=== PATIENT | male | born 1945 | race Caucasian/White ===

== ENCOUNTER → 2024-03-19 07:05 | Outpatient (REF) | payer BC, SELFPAY | LOC: RAD 07:05 | PROVIDERS: ATTENDING PHYSICIAN Surgery Vascular Surgery; FAMILY PHYSICIAN Internal Medicine | DX: I73.9 Peripheral vascular disease, unspecified (principal) | CPT/HCPCS: 93922; 93925 ==

== ENCOUNTER 2024-04-28 20:30 | Inpatient (IN) | payer BC, SELFPAY ==
[2024-04-28 17:38] VITALS: BP 160/79
--- NOTE | 2024-04-28 19:18 | ED.SKININJ ---
HPI-Injury
General
Chief Complaint: Skin Problem
Source: patient
Exam Limitations: none
Time Seen by Provider: 04/28/24 19:16
Nursing documentation reviewed up to this point in time: agreed with
History of Present Illness-Injury
Initial Injury comments:
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 Erickson with right heel wound. Not improving after 14 days on Augmentin 875 mg BID. Sent here with note from Dr. Covarrubias for failure of o/p therapy,
necrosis right heel, admit for IV ATBX, MRI, vascular and ID consult. Patient denies fever or chills. He states he feels well otherwise. He does have neuropathy of the foot and has no pain.
Past History
Past History
ED Past Medical History: Hypercholesterolemia, IDDM, Other (Right foot cellulitis, osteomyelitis) and Other (History of subdural hematoma)
ED Past Surgical History: Appendectomy, Orthopedic (Surgery on the foot for removal of calcium deposit. Surgery for I&D of foot; right cuboid bone debridement, right first second and third toe amputations.) and Other (Surgery for ruptured hematoma)
Social History
Tobacco: Non-smoker
Alcohol: Occasional
Personal:
Living: with family
Employment: Employed
Family History
Family History: Other (Noncontributory)
Review of Systems
Review of Systems
Allergies reviewed?: Yes
All Other Systems: ROS reviewed and negative except as documented in HPI and ROS
Constitutional: Denies fever or chills
Respiratory: Denies trouble breathing
Cardiac: Denies chest pain
ABD/GI: Denies abdominal pain or nausea
: Denies dysuria, frequency or difficulty voiding
Musculoskeletal: Denies edema
Skin: Reports other (non healing wound right heel)
Neurological: Reports other (neuropathy feet); Denies dizzy or weakness
Phy Exam
Physical Exam
Physical Exam:
GENERAL: No acute distress. A&Ox3.
CONSTITUTIONAL: Afebrile.
EYES: clear, conjunctivae normal
ENMT: moist mucus membranes, Pharynx nl
RESPIRATORY: Regular respirations, nonlabored, lungs clear.
CARDIOVASCULAR: Regular rate and rhythm, no murmurs, no rubs.
GI: Soft, nontender, normal BS
MUSCULOSKELETAL: Moves with ease. Well perfused. No edema.
SKIN: Warm, dry, pink, Open wound 4 x 6 cm R heel with black eschar center, surrounding erythema, area marked for observation
PSYCH: Normal mood and affect. Well kept, interactive and appropriate
NEUROLOGIC: Awake, alert and oriented. No focal neurological deficits
Course
Orders/Labs/Results
Orders:
Orders
04/28/24 Dinner
2000 calorie (17 carb) Diabetic
At Your Request: Full Participation
Does patient need a safe tray?: No
04/28/24 19:36
CefTRIAXone [Rocephin] 1,000 mg IV NOW STA
04/28/24 19:43
Complete Blood Count/With Diff Urgent
04/28/24 19:49
CMP [Comprehensive Metabolic Panel] Urgent
Wound Culture [Wound/Abscess/Other Culture] Urgent
CHAVA Source: Heel
Specimen Description: Right
Date Specimen was Collected: 04/28/24
Time Specimen was Collected: 19:43
04/28/24 20:15
Admit/Transfer Patient As Directed
Co-Sign Provider:
Level of Care: Inpatient admission
Assign to:: Medical/Surgical
Physician / Group: thom
Diagnosis: right heel ulcer
Reason for Hospitalization: right heel ulcer
Expected length of stay greater than two midnights?: Yes
ELOS- Estimated Length of Stay in days: 2
I certify the patient meets the requirements for IP care: Yes
04/28/24 20:16
Code Status As Directed
Resuscitation Status: Full Code
04/28/24 21:45
Dextrose 50%-Water [Dextrose 50% Syringe] 12.5 grams IV [id number] PRN
Glucagon [GlucaGen] 1 mg IM PRN PRN
Lisinopril [Zestril] 20 mg PO DAILYPRN PRN
dapaglifloz propaned-metformin [Xigduo XR] 1 tablet PO BIDWMEAL
04/28/24 21:45
PODIATRY CONSULT Routine
Consulting Provider: Vania Erickson
Was physician already notified: Yes
Low Ext No Joint, Right With MR [MR Right Le No Joint With] Routine
Comment:
Reason For Exam: heel ulcer
Recent pill cam endoscopy?: No
Activity As Directed
Activity Level: As Tolerated
Bedside Glucose Monitoring As Directed
Frequency: AC&HS
Additional Instructions:: Change to q6h if pt on TPN, tube feeding or not eating
Bedside Glucose Monitoring As Directed
Frequency: AC&HS
Additional Instructions:: Change to q6h if pt on TPN, tube feeding or not eating
Vital Signs As Directed
Frequency: Per unit guidelines
DX Deep Vein Thrombosis Video Routine
04/28/24 22:00
Piperacillin/Tazo 3.375 Gram [Zosyn] 3.375 gram in 50 ml IV Q6H
VANCOMYCIN Pharmacy to Dose [VANCOCIN Pharmacy to Dose] 1 each Pharmacy To Prepare [Call Pharmacy To Prepare] 0 ml IV PER PROTOCOL
04/29/24 06:00
Complete Blood Count/With Diff IN AM
Comprehensive Metabolic Panel IN AM
Glycohemoglobin (HgbA1c) IN AM
04/29/24 07:30
Insulin Aspart Corrective Low [Novolog Flexpen-Low Resistance] See Protocol SC AC
04/29/24 08:00
Heparin 5,000 units SC Q12
Multivitamin [Theragran] 1 tablet PO DAILY
Vit C/Vit E/Lutein/Min/[place]-3 [Ocuvite Softgel] 2 cap PO DAILY
04/29/24 18:00
Rosuvastatin Calcium [Crestor] 20 mg PO QPM
Abnormal Lab Results
04/28/24 04/28/24
19:43 19:49
WBC 16.3 H 10^3/uL
(4.8-10.8)
Abs Immat Gran (auto) 0.1 H 10^3/uL
(0-0.05)
Absolute Neuts (auto) 13.6 H 10^3/uL
(1.4-6.5)
Absolute Lymphs (auto) 1.0 L 10^3/uL
(1.2-3.4)
Absolute Monos (auto) 1.4 H 10^3/uL
(0.1-0.6)
Immature Gran % 0.8 H %
(0-0.5)
Neutrophils % 83.9 H %
(42.2-75.2)
Lymphocytes % 6.2 L %
(20.5-51.1)
BUN 37 H mg/dl
(9-20)
Glucose 159 H mg/dl
(70-99)
Alkaline Phosphatase 150 H U/L
(38-126)
04/28/24 19:43
04/28/24 19:49
Vital Signs
Initial and Last Documented VS:
Initial Vital Signs
Temp Pulse Resp BP Pulse Ox
98.0 F 92 18 160/79 98
04/28/24 17:38 04/28/24 17:38 04/28/24 17:38 04/28/24 17:38 04/28/24 17:38
Last Documented Vital Signs
Temp Pulse Resp BP Pulse Ox
98.0 F 83 18 126/77 96
04/28/24 17:38 04/28/24 21:28 04/28/24 21:28 04/28/24 21:28 04/28/24 21:30
MDM/Problems Addressed
Differential Diagnosis Includes:
cellulitis, osteomyelitis
MDM/Problems Addressed:
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 Erickson with right heel wound. Pt states he developed heel sore from new shoes. Not improving after 14 days on Augmentin 875 mg BID. Sent here with
note from Dr. Covarrubias for failure of o/p therapy, necrosis right heel, admit for IV ATBX, MRI, vascular and ID consult. Patient denies fever or chills. He states he feels well otherwise. He does have neuropathy of the foot and has no pain.
Pt has copy of wound culture results showing e coli/; also has sensitivity results of Augmenting AND Ceftriaxone. These results scanned into chart.
7:45 p.m.
Hospitalist notified of admission
Labs pending,
wound culture pending
*Critical Care Note
Total Time (30-74mins, 75-104mins- exclusive of procedures): Not Applicable
ED Attending Note
-
Portions of this chart may have been created with voice recognition software.� Occasional wrong word or��sound alike� substitutions may have occurred due to the inherent limitations of voice recognition software.
Discharge Plan
Departure
Patient Disposition: Admit
Date of Disposition: 04/28/24
Time of Disposition: 19:48
Admit to: Med/Surg
Presentation/result/management discussed w/ accepting MD/DO: Hospitalist
Condition: Fair
Discharge Problem:
Non-healing ulcer of foot
Interventions
Interventions:
ED-Skin Assessment Last Done: 04/28/24 20:17
[2024-04-28] MEDS: ROCEPHIN 1000 MG IV (19:50)
[2024-04-28 19:56] LABS: % Basophils 0.2 % (0-2); % Eosinophils 0.2 % (0-6); % Immature Granulocytes 0.8 % (0-0.5); % Lymphocytes 6.2 % (20.5-51.1); % Monocytes 8.7 % (1.7-9.3); % Neutrophils 83.9 % (42.2-75.2); Absolute Immature Granulocytes 0.1 10^3/uL (0-0.05); Absolute Monocytes 1.4 10^3/uL (0.1-0.6); Absolute Neutrophils 13.6 10^3/uL (1.4-6.5); Hematocrit 42.5 % (39.0-52.0); Hemoglobin 14.4 g/dL (13.0-18.0); Mean Corp Hgb Conc. 33.9 g/dL (33.0-37.0); Mean Corpuscular Hgb 28.3 pg (27.0-31.0); Mean Corpuscular Volume 83.5 fL (80.0-94.0); Mean Platelet Volume 9.8 fL (7.4-10.4); Nucleated Red Blood Cells % 0 % (-); Platelet Count 252 10^3/uL (130-400); Red Blood Cell Count 5.09 10^6/uL (4.70-6.10); Red Cell Dist. Width 12.5 % (11.5-14.5); White Blood Cell Count 16.3 10^3/uL (4.8-10.8)
[2024-04-28 20:15] LABS: ALT (SGPT) 32 U/L (0-50); AST (SGOT) 29 U/L (17-59); Albumin 4.1 g/dl (3.5-5.0); Alkaline Phosphatase 150 U/L (38-126); Blood Urea Nitrogen 37 mg/dl (9-20); Calcium 9.3 mg/dl (8.4-10.2); Carbon Dioxide 27 mmol/L (22-30); Chloride 98 mmol/L (98-107); Glucose 159 mg/dl (70-99); Potassium 4.4 mmol/L (3.5-5.1); Sodium 137 mmol/L (135-145); Total Bilirubin 0.6 mg/dl (0.2-1.3); eGFR > 60.00
[2024-04-28 20:16] VITALS: BMI 29.0
--- NOTE | 2024-04-28 20:24 | HPS.HSE ---
Family Physician
-
Family Physician: Dallin Valdez MD
Chief Complaint
-
heel wound
History of Present Illness
79-year-old male past medical history of diabetes, diabetic neuropathy, hyperlipidemia, prior amputation of right second and third toe and left third toe, peripheral vascular disease status post bypass of left lower extremity, prior stent right
lower extremity, hypercholesterolemia, subdural hematoma presenting from [facility] Erickson with right heel wound which started around 2 weeks ago after wearing a new shoe. Wound is not improved after 14 days of Augmentin. Patient denies
fevers or chills.
He denies smoking or alcohol use.
Medical History
Past Medical History
Past Medical History: Reports Other (diabetes, diabetic neuropathy, hyperlipidemia, prior amputation of right second and third toe and left third toe, peripheral vascular disease status post bypass of left lower extremity, prior stent right lower
extremity, hypercholesterolemia, subdural hematoma)
Past Surgical History: Reports Other ( Appendectomy, Orthopedic (Surgery on the foot for removal of calcium deposit. Surgery for I&D of foot; right cuboid bone debridement, right first second and third toe amputations.) and Other (Surgery for
ruptured hematoma))
Social History
Tobacco: Non-smoker
Alcohol: None
Drug: None
Family History
Family History: Not pertinent
Allergies / Home Medications
Allergies reflects when Allergies were last updated in [employer] [facility].
Home Medications with original date entered in [employer]
Allergy/Medication List:
Allergies
Allergy/AdvReac Type Severity Reaction Status Date / Time
No Known Allergies Allergy Verified 04/24/24 14:33
Home Medications
repaglinide 1 mg tablet 1 mg PO MEALS Diabetes 08/15/21
rosuvastatin 20 mg tablet 20 mg PO QPM High cholesterol 08/15/21
vit C 250 mg-vit E 90 mg-zinc 40 mg-copper 1 [id number] capsule (PreserVision AREDS-2) 2 ea PO DAILY Eye condition 10/18/21
coenzyme Q10 100 mg capsule (CoQ-10) 100 mg PO QPM Supplement ##0 10/20/21
rivaroxaban 2.5 mg tablet (Xarelto) 2.5 mg PO BID Blood clot prevention/tx #120 tabs 10/20/21
dapagliflozin propaned 5 mg-metformin ER 1,000 mg tablet, ext rel 24hr (Xigduo XR) 1 tab PO BIDWMEAL Diabetes 10/23/22
therapeutic multivitamin 1 tab PO DAILY Supplement 11/12/22
insulin glargine U-300 conc 300 unit/mL (1.5 mL) subcutaneous pen ([employer] SoloStar U-300 Insulin) 20 unit SC DAILY 04/24/24
lisinopril 20 mg tablet 20 mg PO DAILYPRN PRN SBP >140 04/24/24
semaglutide 1 mg/dose (4 mg/3 mL) subcutaneous pen injector (Ozempic) 1 mg SC MO 04/24/24
Review of Systems
-
History Source: Patient
A 12 point ROS was completed and negative except as noted: Yes
Constitutional: Reports No Symptoms
EENT: Reports No Symptoms
Respiratory: Reports No Symptoms
Cardiac: Reports No Symptoms
Abdomen/GI: Reports No Symptoms
: Reports No Symptoms
Musculoskeletal: Reports No Symptoms
Skin: Reports See HPI
Neurological: Reports No Symptoms
Endocrine: Reports No Symptoms
Hematologic/Lymphatic: Reports No Symptoms
Psych: Reports No Symptoms
Physical Exam
Vital Signs
Vital Signs
Temp Pulse Resp BP Pulse Ox
98.0 F 92 18 160/79 98
04/28/24 17:38 04/28/24 17:38 04/28/24 17:38 04/28/24 17:38 04/28/24 17:38
Physical Exam
General: Well Developed, Well Nourished and No Apparent Distress
HEENT: NormoCephalic, Moist mucous membranes and Atraumatic
Respiratory: Clear
Cardiac: S1/S2 and Regular Rhythm; No Murmur or Rub
GI: Soft, Non Tender, Non Distended and Normal Bowel Sounds; No Organomegaly
Rectal: Deferred by Provider
Musculoskeletal: No Clubbing, No Cyanosis and No Edema
Skin: Other (right heel wound ); No Rash
Neuro: Nonfocal/grossly intact
Laboratory Results
-
04/28/24 19:43
04/28/24 19:49
Laboratory Results
Total Bilirubin 0.6 mg/dl (0.2-1.3) 04/28/24 19:49
AST 29 U/L (17-59) 04/28/24 19:49
ALT 32 U/L (0-50) 04/28/24 19:49
Alkaline Phosphatase 150 U/L (38-126) H 04/28/24 19:49
Data Reviewed
-
Lab Data: Labs Reviewed by me
Old Records: Reviewed
Impression/Plan
-
IMPRESSION:
PLAN:
# Right heel ulcer, possible osteomyelitis
-Check MRI
-Vancomycin/Zosyn
-Podiatry consulted
-ID consulted
-Vascular consulted
-Hold Xarelto for debridement
History of osteomyelitis status post amputation of left third toe, right second/third toes
Peripheral vascular disease status post bypass of left lower extremity/stent of right lower extremity
-Hold Xarelto for debridement
Type 2 diabetes
-Continue dapagliflozin/metformin
-Continue Lantus 20 units
-Hold repaglinide
-Insulin sliding scale
Diabetic neuropathy
Hyperlipidemia
-Continue statin
History of subdural hematoma
Essential hypertension
-Continue lisinopril
Full code
DVT prophylaxis�heparin
Diabetic diet
[2024-04-28 21:06] VITALS: BP 145/65
[2024-04-28 21:28] VITALS: BP 126/77
[2024-04-28 21:52] LABS: Glucose - Point of Care 134 mg/dl (70-99)
[2024-04-28 21:58] VITALS: BP 154/72; BMI 28.0
--- NOTE | 2024-04-28 22:16 | PHA.VAN.IN ---
Addendum entered and electronically signed by Rachel Valderrama [facility] 04/29/24 08:18:
Correction: patient-specific PK was calculated during Nov 2022 admission based on drawn peak of 21 and drawn trough of 13
(levels were drawn appropriately and were at steady state, drawn after 5th maintenance dose)
Vancomycin 1250mg Q12H provided the following:
Extrapolated Cmax: 24.2
Extrapolated Cmin: 13.1
AUC: 436
ke: 0.0586
Half-life: 11.8 H
Vd: 98 L (~0.99 L/kg)
Vanc Cl: 95 ml/min
SCR is similar to previous dosing experience (ranged 0.5 to 0.7 11/11/22 to 11/15/22, levels were drawn on 11/14/22 and 11/15/22)
Original Note:
Assessment
- Assessment
Renal Function: Appears similar to baseline
Concomitant Antimicrobials: ZOSYN
- Previous Dosing Experience
Previous Regimen: 1250MG IV Q12H
Date of Regimen: 11/26/22
Provided Trough of: 13.1 PREDICTED
Provided AUC of: 436 PREDICTED
Patient's SCR is: Decreased compared to previous dosing experience (11/26/22 SCR = 0.9)
Patient's weight is: Decreased compared to previous dosing experience (11/26/22 WT = 95.5 KG)
AUC Dosing Plan
- Dosing Variables
Dosing Weight (kg): 90.9
Dosing CrCl (ml/min): 94
Vd coefficient (L/kg): 0.7
- Empiric Dosing
Initial / Loading Dose: 2GM
Maintenance Regimen: 1250MG IV Q12H
Estimated AUC (mcg*h/mL): 506
Estimated Peak (mcg*h/mL): 31.3
Estimated Trough (mcg/ml): 13.2
Estimated Half Life (H): 8.4
Pharmacokinetics Vancomycin I
- -
Patient Age: 79
Patient Sex: Male
Vancomycin Day #: 1
Indication: Bone And Joint (OM)
Requesting Provider: KARIE
Height / Weight:
Height 5 ft 11 in
Actual Weight 90.917 kg
Pertinent Past Medical History: HX OM/AMPUTATIONS; DM
- Vital Signs / Lab Results
Temp Pulse Resp BP Pulse Ox
98.2 F 79 18 154/72 98
04/28/24 21:58 04/28/24 21:58 04/28/24 21:58 04/28/24 21:58 04/28/24 21:58
Lab Results - Hematology
04/28/24
19:43
WBC 16.3 H
Lab Results - Chemistry
04/28/24 04/28/24
19:41 19:49
BUN Cancelled 37 H
Creatinine Cancelled 0.7
Estimated Creat Clear Cancelled
Albumin Cancelled 4.1
Microbiology Results
04/28/24 19:49 Gram Stain - Preliminary
Heel - Right
--- NOTE | 2024-04-28 22:30 | PTCARENOTE ---
Received patient from ED via stretcher. Patient pulled over from stretcher to bed with assistance. AAOx3, no current complaints of pain. Right heel wound redressed, wound consult added. Oriented patient to room and placed call garcia within reach.
[2024-04-28] MEDS: ZOSYN 50 IV (22:41)
[2024-04-28] MEDS: VANCOCIN 540 MG IV (23:21)
[2024-04-28 23:39] VITALS: BP 142/61
[2024-04-29] MEDS: ZOSYN 50 IV ×4 (04:29→20:59)
[2024-04-29] MEDS: VANCOCIN 275 MG IV ×2 (05:43→17:59)
[2024-04-29 07:21] LABS: % Basophils 0.5 % (0-2); % Eosinophils 0.5 % (0-6); % Immature Granulocytes 1.7 % (0-0.5); % Lymphocytes 11.9 % (20.5-51.1); % Monocytes 10.7 % (1.7-9.3); % Neutrophils 74.7 % (42.2-75.2); Absolute Basophils 0.1 10^3/uL (0-0.2); Absolute Eosinophils 0.1 10^3/uL (0-0.7); Absolute Immature Granulocytes 0.2 10^3/uL (0-0.05); Absolute Lymphocytes 1.6 10^3/uL (1.2-3.4); Absolute Monocytes 1.4 10^3/uL (0.1-0.6); Hematocrit 38.4 % (39.0-52.0); Mean Corp Hgb Conc. 33.9 g/dL (33.0-37.0); Mean Corpuscular Hgb 28.4 pg (27.0-31.0); Mean Platelet Volume 9.4 fL (7.4-10.4); Nucleated Red Blood Cells % 0 % (-); Platelet Count 237 10^3/uL (130-400); Red Blood Cell Count 4.57 10^6/uL (4.70-6.10); Red Cell Dist. Width 12.8 % (11.5-14.5); White Blood Cell Count 13.3 10^3/uL (4.8-10.8)
[2024-04-29 07:32] LABS: Glucose - Point of Care 105 mg/dl (70-99)
[2024-04-29] MEDS: NOVOLOG FLEXPEN-LOW RESISTANCE SC ×2 (07:33→12:50)
[2024-04-29 07:39] LABS: ALT (SGPT) 27 U/L (0-50); AST (SGOT) 25 U/L (17-59); Albumin 3.4 g/dl (3.5-5.0); Alkaline Phosphatase 117 U/L (38-126); Blood Urea Nitrogen 26 mg/dl (9-20); Calcium 8.8 mg/dl (8.4-10.2); Carbon Dioxide 29 mmol/L (22-30); Chloride 100 mmol/L (98-107); Estimated Creatinine Clearance 94 ml/min; Glucose 106 mg/dl (70-99); Potassium 4.4 mmol/L (3.5-5.1); Sodium 137 mmol/L (135-145); Total Bilirubin 0.4 mg/dl (0.2-1.3); eGFR > 60.00
[2024-04-29 07:40] VITALS: BP 146/46
[2024-04-29] MEDS: FARXIGA 5 MG PO ×2 (07:59→17:58)
[2024-04-29] MEDS: GLUCOPHAGE XR EXTENDED RELEASE 1000 MG PO ×2 (08:00→17:58)
[2024-04-29] MEDS: OCUVITE SOFTGEL 2 CAP PO (08:00)
[2024-04-29] MEDS: THERAGRAN 1 TABLET PO (08:00)
[2024-04-29] MEDS: HEPARIN 5000 UNITS SC ×2 (08:01→20:53)
[2024-04-29] MEDS: LANTUS 0.16 UNITS SC (08:01)
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
--- NOTE | 2024-04-29 08:16 | PHA.VAN.FU ---
Vancomycin Assessment / Plan
- Assessment
Renal Function: Stable
WBC's are: Trending Down
In the past 24 hrs, patient has been: Afebrile
Concomitant Antimicrobials: piperacillin/tazobactam
- Dosing Plan
Continue: Vanc 1250mg Q12H
- Monitoring Plan
No level(s) ordered at this time: consider levels in next few days
- Follow Up
Pharmacy will continue to follow.
Vancomycin Follow UP
- -
Patient Age: 79
Patient Sex: Male
Vancomycin Day #: 2
Indication: Bone And Joint
Requesting Provider: Dr. Stiles
Pertinent Antimicrobial Allergies:
NKDA
Height / Weight:
Height 5 ft 11 in
Actual Weight 90.917 kg
Pertinent Past Medical History: DM 2, PVD
- Vital Signs / Lab Results
Temp Pulse Resp BP Pulse Ox
98.8 F 65 16 146/46 97
04/29/24 07:40 04/29/24 07:40 04/29/24 07:40 04/29/24 07:40 04/29/24 07:40
Lab Results - Hematology
04/28/24 04/29/24
19:43 06:54
WBC 16.3 H 13.3 H
Lab Results - Chemistry
04/28/24 04/28/24 04/29/24
19:41 19:49 06:54
BUN Cancelled 37 H 26 H
Creatinine Cancelled 0.7 0.7
Estimated Creat Clear Cancelled 94
Albumin Cancelled 4.1 3.4 L
Microbiology Results
04/28/24 19:49 Gram Stain - Preliminary
Heel - Right
--- NOTE | 2024-04-29 08:25 | W.PN.UPDATE ---
Update Note
Progress Note Update
Seen and examined with ZEKE Gomez. Full consultation to follow. 79-year-old male well-known to the vascular service status post multiple lower extremity interventions (Tk). Plan for scheduled right lower extremity arteriogram due to heel
ulceration. Brought into hospital due to concern for slight worsening of heel ulceration/nonhealing. Started on IV antibiotics. On exam heel with ulceration/dry gangrene with slight boggy tissue. No xiao wet necrosis. No purulence.
Surrounding with continued ulceration but superficial and granulating.
Plan/discussed with patient plan for arteriogram Saturday as scheduled as outpatient. Continue with that plan. Obtain vein mapping in the meanwhile as he might require bypass (history of failed popliteal stent). Continue IV antibiotics. If needed
preprocedurally, okay for heel debridement if any concern for infection prior. Otherwise can wait for revascularization.
--- NOTE | 2024-04-29 09:53 | WOUNDNOTE ---
R PLANTAR FOOT/HEEL
--- NOTE | 2024-04-29 09:53 | WOUNDNOTE ---
R FOOT/ANKLE (MEDIAL)
--- NOTE | 2024-04-29 09:56 | WOUNDNOTE ---
[facility] RN note: Patient admitted with infected R heel ulcer. Patient lives at home. He is followed by Dr. Erickson.
See H&P for complete history.
PMH: PAD, LLE bypass, RLE stent, DM, R toe amps.
Wound Location and type/assessment: Patient admitted with: R plantar heel full thickness necrotic diabetic ulcer. R sacral/coccyx crease mild red/MASD. R heel blanchable red. Pedal pulses heard via portable Doppler (L>R). Vascular following.
Georgina on consult.
Appetite: good.
Pressure redistribution devices in place: [employer] Accumax. Patient moves self in bed. He ambulates to bathroom only R toe only.
Plan: R heel dressing changed. Heels off bed with pillows. Air chair cushion given. Podiatry managing. Await report.
Discussed with WILNER Quijano.
Care plan to be updated and will follow as needed.
[2024-04-29 11:14] LABS: Glycohemoglobin (HgbA1c) 7.9 % (4.0-5.6)
[2024-04-29 12:49] LABS: Glucose - Point of Care 127 mg/dl (70-99)
--- NOTE | 2024-04-29 13:19 | CM ---
Addendum entered by Arabella Brady 04/30/24 11:07:
CM spoke with Romario' daughter Jany elizalde am who advised he had been at [facility] previously.
Original Note:
Romario lives with his in a split level home; bed and bath are on the first floor. Romario has been driving and is (I) amb with a cane. OP arteriogram scheduled 05/01/2024.
Pt has no history of home care or SNF. Watch for possible home care needs.
Plan: Discharge to home with ; Watch for possible home care needs.
PCP: Dallin Valdez
Pharmacy: [facility]
--- NOTE | 2024-04-29 13:57 | CON.ID ---
Consultation
-
Date/Time Consultation Requested: 04/28/24 22:43
Date/Time Consultation Performed: 04/29/24 15:41
Requesting Provider: Dr Stiles
Performing Provider: Dr Buenrostro
Reason for Consultation: infected ulcer, osteo
Chief Complaint / Past History
Chief Complaint
heel wound
History of Present Illness
Mr Dent is a 79 year old male known to ID and podiatry services for Dm2 with associated neuropathy, PAD. He has previously undergone amputation of the right right second and third toes and stenting of the bilateral lower extremities.
Patient has a chronic nonhealing wound of the plantar right foot for which he has been undergoing restaging with Dr Frey - vascular surgery with RLE arteriogram and possible endovascular intervention and update vein mapping planned but not yet
schedule at this institution. He now presents for a new right heel wound which began about two weeks ago while wearing a new shoe. No fevers or chills. He has taken a 14 day course of augmentin
Since arrival here he has been afebrile, bp stable, wbc on arrival 16 now 13.3, hgb 13, plt 237, L shift was present on arrival now resolved, cr 0.7, t bili 0.4, ast 25, alt 27, alk phos 117, MRI: R foot with and without contrast: no evidence of
osteomyelitis; prominent varicose veins. Vascular mapping: completed, interpretation per vascular. MAMADOU 03/19/24: chronically occluded popliteal artery. distal anastomosis of the L leg with suggestion of 50% occlusion - chronic, 04/28 wound culture
from ER: rare GPCs on the gram stain, many GNR on culture, mrsa screen ordered. He is currently on vancomycin and zoysn. We do not have an updated EKG since 2021.
Past History
Additional Past Medical History:
diabetes, diabetic neuropathy, hyperlipidemia, prior amputation of right second and third toe and left third toe, peripheral vascular disease status post bypass of left lower extremity, prior stent right lower extremity, hypercholesterolemia,
subdural hematoma
Additional Past Surgical History:
Appendectomy, Orthopedic (Surgery on the foot for removal of calcium deposit. Surgery for I&D of foot; right cuboid bone debridement, right first second and third toe amputations.) and Other (Surgery for ruptured hematoma)
Allergy History:
No Known Allergies Allergy (Verified 04/24/24 14:33)
Medications Reviewed: Yes
Social History
Tobacco: Non-Smoker
Alcohol: None
Drug: None
Family History
Family History: Not Pertinent
Review of Systems
Review of Systems
General: Negative Fever or Chills
All systems: All other systems were reviewed and were negative
Vital Signs
Temp Pulse Resp BP Pulse Ox
98.8 F 65 16 146/46 97
04/29/24 07:40 04/29/24 07:40 04/29/24 07:40 04/29/24 07:40 04/29/24 08:00
Physical Exam
Physical Exam
Constitutional: No Acute Distress and Chronically Ill
Cardiovascular: Regular Rate and S1/S2; Negative Murmur or Rub
Pulmonary: Clear and Symmetric; Negative Wheezes, Rales or Rhonchi
Gastrointestinal: Soft, Non Tender, Non Distended and Normal Bowel Sounds
Skin: Warm and Dry; Negative Rash or Jaundice
Wound: Other (some residual necrotic tissue in the right heel, no xiao probe to bone though limited soft tissue appreciated covering the heel, no odor, no drainage, cellulitis regressing from previous markings on the posterior heel)
Lab / Diagnostic Study Results
04/29/24 06:54
04/29/24 06:54
Abs Immat Gran (auto) 0.2 10^3/uL (0-0.05) H 04/29/24 06:54
Absolute Neuts (auto) 10.0 10^3/uL (1.4-6.5) H 04/29/24 06:54
Absolute Lymphs (auto) 1.6 10^3/uL (1.2-3.4) 04/29/24 06:54
Absolute Monos (auto) 1.4 10^3/uL (0.1-0.6) H 04/29/24 06:54
Absolute Basos (auto) 0.1 10^3/uL (0-0.2) 04/29/24 06:54
Immature Gran % 1.7 % (0-0.5) H 04/29/24 06:54
Neutrophils % 74.7 % (42.2-75.2) 04/29/24 06:54
Lymphocytes % 11.9 % (20.5-51.1) L 04/29/24 06:54
Monocytes % 10.7 % (1.7-9.3) H 04/29/24 06:54
Eosinophils % 0.5 % (0-6) 04/29/24 06:54
Basophils % 0.5 % (0-2) 04/29/24 06:54
Microbiology Results
Micro:
04/28/24 19:49 Wound Culture - Preliminary
Heel - Right Gram negative bacilli
Gram Stain - Preliminary
04/28/24 22:49 MRSA Screen - Pending
Nose
Assessment / Plan
Diabetic Foot Infection/Dry gangrene
Subacute Right Heel Wound
PAD/CAD
History of poor wound healing
- wound cultures - few gpcs on the gram stain, moderate GNR in culture
- mrsa screen in progress
- would not recommend blood cultures
- assess QTc
- MAMADOU and venous mapping up to date - vascular surgery evaluation ongoing
- MRI with contrast: no evidence of osteomyelitis
- a1c pending - recommend tight control
- wound care per podiatry
- continue vancomycin and zoysn at this time
- follow clinically
--- NOTE | 2024-04-29 15:09 | W.PN.HOSP.TC ---
Today's Communication/Plan
-
await further input from Podiatry/ID
Assessment / Plan
Assessment / Plan
# Right heel ulcer, possible osteomyelitis
- MRI: Focal small soft tissue defect involving the superficial plantar soft tissues, inferior to the calcaneus. No evidence of collection to suggest abscess. No evidence for osteo myelitis.
Intermediate T1-weighted signal within the subcutaneous soft tissues off the plantar aspect of the posterior and inferior calcaneus, without significant enhancement postcontrast. This could represent soft tissue callus and/or relatively
devascularize soft tissues. No evidence of collection. No evidence for osteomyelitis of the calcaneus.
Numerous prominent tortuous enhancing varicose veins within the medial soft tissues of the right lower leg and ankle
-Vancomycin/Zosyn
-Podiatry consulted
-ID consulted
-Vascular consulted
-Hold Xarelto for debridement
History of osteomyelitis status post amputation of left third toe, right second/third toes
Peripheral vascular disease status post bypass of left lower extremity/stent of right lower extremity
-Hold Xarelto for debridement
Type 2 diabetes
-Continue dapagliflozin/metformin
-Continue Lantus 20 units
-Hold repaglinide
-Insulin sliding scale
Diabetic neuropathy
Hyperlipidemia
-Continue statin
History of subdural hematoma
Essential hypertension
-Continue lisinopril
Full code
DVT prophylaxis�heparin
Diabetic diet
Anticipated Discharge: > 48 hours
Subjective/Interval History
-
Date of Service: April 29, 2024
In good spirits
Objective Data
-
Labs:
Laboratory Results
04/29/24
06:54
WBC 13.3 H
Hgb 13.0
Hct 38.4 L
Plt Count 237
Sodium 137
Potassium 4.4
Chloride 100
Carbon Dioxide 29
BUN 26 H
Creatinine 0.7
Glucose 106 H
Calcium 8.8
Total Bilirubin 0.4
AST 25
ALT 27
Alkaline Phosphatase 117
Vital Signs:
Vital Signs
Temp Pulse Resp BP Pulse Ox
98.8 F 65 16 146/46 97
04/29/24 07:40 04/29/24 07:40 04/29/24 07:40 04/29/24 07:40 04/29/24 08:00
I&O
04/28/24 04/29/24 04/30/24
06:59 06:59 06:59
Intake Total 480 / 480
Balance 480 / 480
Review of Systems
-
History Source: Patient and Coordinated Provider
Constitutional: Denies Fever
EENT: Reports No Symptoms Reported
Respiratory: Reports No Symptoms
Cardiac: Reports No Symptoms
Abdomen/GI: Reports No Symptoms
Genitourinary: Reports No Symptoms
Physical Exam
-
General: Well Developed, Well Nourished and No Apparent Distress
HEENT: Normocephalic, Atraumatic and Moist Mucous Membranes
Respiratory: Clear to Auscultation; Negative Wheezes, Rales or Rhonchi
Cardiac: Regular Rhythm and S1/S2
GI: Soft, Nontender and Nondistended
Musculoskeletal: No Clubbing, No Cyanosis, No Edema and Other (left hallux shallow ulceration)
Skin: Warm and Rash (cellulitic rash left lower ext markedly improved)
Neuro: Awake, Alert and Oriented
[2024-04-29 15:22] VITALS: BP 156/68
[2024-04-29 16:48] LABS: Glucose - Point of Care 186 mg/dl (70-99)
--- NOTE | 2024-04-29 16:50 | CON.MD ---
Addendum entered and electronically signed by Vania Erickson DPM 04/30/24 18:56:
Clarification: With sterile scissors and forceps area of bogginess to the right medial heel was sharply, non excisionally debrided as noted above of mainly epidermis, dermis medially and subcutaneus tissue at the plantar central heel/original wound
site
Original Note:
Consultation - Medical
-
Consulted by Dr Stiles @ 2242
[address] Vania Erickson 04/29/24 at 1650
Medical History
Chief Complaint
Worsening cellulitis and PAD right heel, Failed outpatient therapy
History of Present Illness
This 79 year old man is well known to me for treatment of diabetic foot wounds. He developed a wound and cellulitis to the right heel a few weeks ago after purchasing and wearing an off the shelf shoe. The wound was improving with wound care and on
antibiotic therapy (wound cx +E. Coli-sens to Augmentin), until he was seen in the office 04/28/24 with worsening of wound, necrosis and cellulitis. He admits to malaise, but denies Fever or chills, n/v
Review of Systems
General: Negative Fever or Chills
All systems: All other systems were reviewed and were negative
Past Medical / Surgical History
Additional PMH-DM2, DPN w/Lops, H/O osteomyelitis, hyperlipidemia, gait dysfunction,
PSH- RLE stent, LLE bypass graft, multiple debridements of bone, toe amps, wound debridements
Medications
Meds reviewed on chart
Allergies
NKDA
Social / Family History
Family history- non pertinent
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
Denies Alcohol/nicotine or opiod use
Vital Signs / Labs
-
Vital Signs and Labs:
Temp Pulse Resp BP Pulse Ox
98.5 F 70 16 156/68 99
04/29/24 15:22 04/29/24 15:22 04/29/24 15:22 04/29/24 15:22 04/29/24 15:22
04/29/24 06:54
04/29/24 06:54
04/28/24 04/29/24 04/29/24
21:51 06:54 07:31
WBC 13.3 H
RBC 4.57 L
Hct 38.4 L
Abs Immat Gran (auto) 0.2 H
Absolute Neuts (auto) 10.0 H
Absolute Monos (auto) 1.4 H
Immature Gran % 1.7 H
Lymphocytes % 11.9 L
Monocytes % 10.7 H
BUN 26 H
Glucose 106 H
Hemoglobin A1c 7.9 H
Total Protein 6.0 L
Albumin 3.4 L
POC Glucose 134 H 105 H
04/29/24 04/29/24
12:48 16:47
WBC
RBC
Hct
Abs Immat Gran (auto)
Absolute Neuts (auto)
Absolute Monos (auto)
Immature Gran %
Lymphocytes %
Monocytes %
BUN
Glucose
Hemoglobin A1c 7.9
Total Protein
Albumin
POC Glucose 127 H 186 H
MRI findings:
Physical Exam
Vital Signs
Vital Signs
Temp Pulse Resp BP Pulse Ox
98.5 F 70 16 156/68 99
04/29/24 15:22 04/29/24 15:22 04/29/24 15:22 04/29/24 15:22 04/29/24 15:22
MRI: Focal small soft tissue defect involving the superficial plantar soft tissues, inferior to the calcaneus. No evidence of collection to suggest abscess. No evidence for osteo myelitis.
Physical Exam
General: AAO x 3, in NAD
LE focused exam: + edema RLE, hyperpigmentation B/L LEs, advanced trophic skin changes B/L, feeble DPA right and left foot, non palpable TISSUE SPECIALIST right, feeble TISSUE SPECIALIST left. ++ Cellulitis right heel extending to the medial ankle, lymphadenopathy improved
RLE, Wound central heel is fibronecrotic and tunnels approx 5cm to the medial heel and approx 3cm to the proximal and distal heel, scant purulence expressed. Wound bed is non viable in appearance and measures approc 1cm2, there are smaller more
superficial wounds present to the plantar medial and lateral heel that do not probe and are granular.
Absent protective sensation to the LEs/feet to ankles. No ankle clonus
Assessemnt/Plan
-
DM2 with hyperglycemia
DM2 with PAD-- Vascular team following and are planning to proceed w/RLE bypass graft this Saturday
DM2 with DPN and LOPS
H/O Osteomyelitis left lateral foot (5th met) and Right cuboid S/P oysterman abt therapy, Amps of toes right 1,2 and left 2nd
Neurotrophic ulcer right heel >2-3 weeks with cellulitis. The wound was sharply debrided at bedside of epidermis, dermis into sq. Wound irrigated and packed gently.
Wound care orders placed on chart for Iodo packing to the plantar heel wound. Will order offloading DH shoe
Will follow along
[2024-04-29] MEDS: CRESTOR 20 MG PO (17:58)
[2024-04-29] MEDS: NOVOLOG FLEXPEN-LOW RESISTANCE 1 UNITS SC (18:26)
[2024-04-29] MEDS: MILK OF MAGNESIA 30 ML PO (19:15)
[2024-04-29] MEDS: COLACE 100 MG PO (20:52)
[2024-04-29] MEDS: DESENEX/MITRAZOL/ZEASORB 1 APPLIC TOPICAL (20:54)
[2024-04-29 21:25] LABS: Glucose - Point of Care 366 mg/dl (70-99)
[2024-04-29] MEDS: MELATONIN 5 MG PO (22:42)
[2024-04-29 22:47] LABS: Glucose - Point of Care 126 mg/dl (70-99)
[2024-04-29 22:51] LABS: Glucose - Point of Care 100 mg/dl (70-99)
[2024-04-29 22:57] LABS: Glucose - Point of Care 112 mg/dl (70-99)
[2024-04-29 23:00] VITALS: BP 125/68
[2024-04-30] MEDS: ZOSYN 50 IV ×4 (04:56→21:55)
[2024-04-30] MEDS: VANCOCIN 275 MG IV ×2 (05:34→17:56)
[2024-04-30 07:17] VITALS: BP 139/60
[2024-04-30 07:54] LABS: Glucose - Point of Care 79 mg/dl (70-99)
[2024-04-30] MEDS: NOVOLOG FLEXPEN-LOW RESISTANCE SC (07:58)
[2024-04-30] MEDS: BACTROBAN 2% OINTMENT 1 APPLIC TOPICAL (07:59)
[2024-04-30] MEDS: DESENEX/MITRAZOL/ZEASORB 1 APPLIC TOPICAL ×2 (08:00→20:45)
[2024-04-30] MEDS: DAKIN'S SOLUTION 0.125% 1/4 STRENGTH 1 ML TOPICAL (08:00)
[2024-04-30] MEDS: COLACE 100 MG PO ×2 (08:00→20:42)
[2024-04-30] MEDS: OCUVITE SOFTGEL 2 CAP PO (08:01)
[2024-04-30] MEDS: GLUCOPHAGE XR EXTENDED RELEASE PO (08:01)
[2024-04-30] MEDS: THERAGRAN 1 TABLET PO (08:02)
[2024-04-30] MEDS: FARXIGA 5 MG PO ×2 (08:02→17:56)
[2024-04-30] MEDS: HEPARIN 5000 UNITS SC ×2 (08:02→20:42)
[2024-04-30] MEDS: LANTUS 0.16 UNITS SC (08:02)
[2024-04-30] MEDS: MILK OF MAGNESIA 30 ML PO (08:03)
[2024-04-30 08:06] LABS: % Basophils 0.4 % (0-2); % Eosinophils 0.5 % (0-6); % Immature Granulocytes 0.7 % (0-0.5); % Lymphocytes 8.8 % (20.5-51.1); % Monocytes 9.4 % (1.7-9.3); % Neutrophils 80.2 % (42.2-75.2); Absolute Basophils 0.1 10^3/uL (0-0.2); Absolute Eosinophils 0.1 10^3/uL (0-0.7); Absolute Immature Granulocytes 0.1 10^3/uL (0-0.05); Absolute Lymphocytes 1.2 10^3/uL (1.2-3.4); Absolute Monocytes 1.3 10^3/uL (0.1-0.6); Absolute Neutrophils 11.3 10^3/uL (1.4-6.5); Hematocrit 39.9 % (39.0-52.0); Hemoglobin 13.3 g/dL (13.0-18.0); Mean Corp Hgb Conc. 33.3 g/dL (33.0-37.0); Mean Corpuscular Hgb 28.8 pg (27.0-31.0); Mean Corpuscular Volume 86.4 fL (80.0-94.0); Mean Platelet Volume 9.5 fL (7.4-10.4); Nucleated Red Blood Cells % 0 % (-); Platelet Count 251 10^3/uL (130-400); Red Blood Cell Count 4.62 10^6/uL (4.70-6.10); Red Cell Dist. Width 12.9 % (11.5-14.5); White Blood Cell Count 14.1 10^3/uL (4.8-10.8)
--- NOTE | 2024-04-30 08:21 | PHA.VAN.FU ---
Vancomycin Assessment / Plan
- Assessment
Renal Function: No New Labs Today
WBC's are: Stable
In the past 24 hrs, patient has been: Afebrile
Concomitant Antimicrobials: piperacillin/tazobactam
- Dosing Plan
Continue: Vanc 1250mg Q12H
- Monitoring Plan
No level(s) ordered at this time: consider levels in next few days
- Follow Up
Pharmacy will continue to follow.
Vancomycin Follow UP
- -
Patient Age: 79
Patient Sex: Male
Vancomycin Day #: 3
Indication: [facility]
Requesting Provider: Dr. Stiles / Chitra
Pertinent Antimicrobial Allergies:
NKDA
Height / Weight:
Height 5 ft 11 in
Actual Weight 90.917 kg
Pertinent Past Medical History: DM 2, PVD
- Vital Signs / Lab Results
Temp Pulse Resp BP Pulse Ox
98.3 F 69 18 139/60 100
04/30/24 07:17 04/30/24 07:17 04/30/24 07:17 04/30/24 07:17 04/30/24 07:17
Lab Results - Hematology
04/28/24 04/29/24 04/30/24
19:43 06:54 07:34
WBC 16.3 H 13.3 H 14.1 H
Lab Results - Chemistry
04/28/24 04/28/24 04/29/24
19:41 19:49 06:54
BUN Cancelled 37 H 26 H
Creatinine Cancelled 0.7 0.7
Estimated Creat Clear Cancelled 94
Albumin Cancelled 4.1 3.4 L
Microbiology Results
04/28/24 22:49 MRSA Screen - Final
Nose No Methicillin Resistant Staphylococcus aureus isolated.
04/28/24 19:49 Wound Culture - Preliminary
Heel - Right Gram negative bacilli
Gram Stain - Preliminary
--- NOTE | 2024-04-30 09:09 | PN.CDI ---
CDI
- -
CDI:
Physician Documentation Request
Admit Date: 04/28/24 20:30
Dear Doctor Georgina,
Clinical Indicators:
Patient admitted with right heel ulcer.
04/29 Podiatry consult, 'The wound was sharply debrided at bedside of epidermis, dermis into sq. Wound irrigated and packed gently.'
Could you provide, in the progress notes further clarification regarding the debridement.
Please specify the type of debridement performed:
1. Excisional Debridement - defined as removal by excision of devitalized tissue, necrosis or slough
2. Non-excisional debridement - defined as removal of devitalized tissue, necrosis or slough by such methods as irrigation, brushing, scrubbing or washing.
If the debridement was excisional, please also include:
1. Type of instrument used (#11 blade, #15 blade etc.)
2. What was excised (necrotic tissue, gangrenous tissue, slough etc.)
Use of terms such as suspected, likely, concern for, or probable (associated with a specific diagnosis that is being evaluated, monitored, or treated as if it exists) are acceptable and can be coded in the inpatient setting, when documented at the
time of discharge.
Thank you,
Herminia Guzman RN BSN
CDI Specialist
available via tiger text
Please use your independent medical judgment in providing your response.
--- NOTE | 2024-04-30 11:11 | CM ---
Call received from Romario' daughter, Jany, asking to discuss discharge planning for future surgery. She advised that he is to have an outpatient arteriogram on 04/30/2024 with plan for fem-pop bypass next week on Saturday or Saturday (TBD).
Jany anticipates that he will require rehabilitation after surgery and wanted to start making discharge plans. Since it is anticipated that Romario' need for rehab services could be a week or more away, I explained that it is too soon to find
an available bed and obtain insurance authorization. I provided Jany with the Medicare Compare Star ratings report so she could look at them to help in identifying where he should go. Her preference is for acute rehab at [facility]. I explained the difference between SNF and ARF, advising that her father may not be able to tolerate an acute rehab program which requires 3 hours of therapy per day.
CM will continue to follow for discharge planning needs.
Plan: SNF vs. ARF based on patient's needs at time of discharge.
[2024-04-30 11:16] LABS: Glucose - Point of Care 186 mg/dl (70-99)
[2024-04-30] MEDS: NOVOLOG FLEXPEN-LOW RESISTANCE 1 UNITS SC (11:50)
--- NOTE | 2024-04-30 12:31 | W.PN.ID1 ---
Date of Service
Date of Service: April 30, 2024
Today's Communication
- family asked my opinion re: delaying vascular procedure - no need to delay from ID perspective - family also asking about patient remaining in house until that time referred them to hospitalist to discuss, from my perspective it would not be
necessary
- continue vancomycin and zoysn at this time - plan switch to oral antibiotics when
Assessment / Plan
Diabetic Foot Infection/Dry gangrene
Subacute Right Heel Wound
PAD/CAD
History of poor wound healing
- wound cultures - few gpcs on the gram stain, moderate GNR in culture, diptheroid - in progress
- mrsa screen negative
- QTc 435
- MAMADOU and venous mapping up to date - vascular surgery evaluation ongoing
- MRI with contrast: no evidence of osteomyelitis
- a1c 7.9 - recommend tight control - could be optimized outpatient
- wound care per podiatry
- family asked my opinion re: delaying vascular procedure - no need to delay from ID perspective - family also asking about patient remaining in house until that time referred them to hospitalist to discuss, from my perspective it would not be
necessary
- continue vancomycin and zoysn at this time - plan switch to oral antibiotics when
- follow clinically
Chief Complaint
-: Other (diabetic foot infection)
Subjective / Review of Systems
afebrile
bp stable
stable leukocytossi, L shift noted
cr 0.7
wound cx: GNR awaiting ID
Vital Signs / Physical Exam
Vital Signs
Vital Signs
Temp Pulse Resp BP Pulse Ox
98.3 F 69 18 139/60 100
04/30/24 07:17 04/30/24 07:17 04/30/24 07:17 04/30/24 07:17 04/30/24 07:17
Physical Exam
Constitutional: No Acute Distress
Cardiovascular: Regular Rate and S1/S2; Negative Murmur or Rub
Pulmonary: Clear and Symmetric; Negative Wheezes or Rales
Gastrointestinal: Soft, Non Tender, Non Distended and Normal Bowel Sounds
Skin: Warm and Dry; Negative Rash or Jaundice
Wound: Other (wound debrided, no xiao probe to bone, there is some hematoma on the posterior most portion)
Objective Data
Lab Data
Lab Results
04/30/24 07:34
04/29/24 06:54
Estimated Creat Clear 94 ml/min 04/29/24 06:54
Total Bilirubin 0.4 mg/dl (0.2-1.3) 04/29/24 06:54
AST 25 U/L (17-59) 04/29/24 06:54
ALT 27 U/L (0-50) 04/29/24 06:54
Alkaline Phosphatase 117 U/L (38-126) 04/29/24 06:54
Most recent labs reviewed.
Micro Results:
04/28/24 19:49 Wound Culture - Preliminary
Heel - Right Gram negative bacilli
Gram Stain - Preliminary
04/28/24 22:49 MRSA Screen - Final
Nose No Methicillin Resistant Staphylococcus aureus isolated.
[2024-04-30 15:24] VITALS: BP 154/63
--- NOTE | 2024-04-30 15:53 | W.PN.HOSP.TC ---
Today's Communication/Plan
-
for arteriogram tomorrow
Assessment / Plan
Assessment / Plan
# Right heel ulcer, possible osteomyelitis
- MRI: Focal small soft tissue defect involving the superficial plantar soft tissues, inferior to the calcaneus. No evidence of collection to suggest abscess. No evidence for osteo myelitis.
Intermediate T1-weighted signal within the subcutaneous soft tissues off the plantar aspect of the posterior and inferior calcaneus, without significant enhancement postcontrast. This could represent soft tissue callus and/or relatively
devascularize soft tissues. No evidence of collection. No evidence for osteomyelitis of the calcaneus.
Numerous prominent tortuous enhancing varicose veins within the medial soft tissues of the right lower leg and ankle
-Vancomycin/Zosyn
-Podiatry consulted
-ID consulted
-Vascular consulted
-Hold Xarelto for debridement
Pt to have arteriogram tomorrow
History of osteomyelitis status post amputation of left third toe, right second/third toes
Peripheral vascular disease status post bypass of left lower extremity/stent of right lower extremity
-Hold Xarelto for debridement
Type 2 diabetes
-Continue dapagliflozin/metformin
-Continue Lantus 20 units
-Hold repaglinide
-Insulin sliding scale
Diabetic neuropathy
Hyperlipidemia
-Continue statin
History of subdural hematoma
Essential hypertension
-Continue lisinopril
Full code
DVT prophylaxis�heparin
Diabetic diet
Anticipated Discharge: > 48 hours
Subjective/Interval History
-
Date of Service: April 30, 2024
In good spirits
Objective Data
-
Labs:
Laboratory Results
04/30/24
07:34
WBC 14.1 H
Hgb 13.3
Hct 39.9
Plt Count 251
Vital Signs:
Vital Signs
Temp Pulse Resp BP Pulse Ox
98.2 F 71 18 154/63 100
04/30/24 15:24 04/30/24 15:24 04/30/24 15:24 04/30/24 15:24 04/30/24 15:24
I&O
04/29/24 04/30/24 05/01/24
06:59 06:59 06:59
Intake Total 480 / 480 1420 / 1420
Output Total 725 / 725
Balance 480 / 480 695 / 695
Review of Systems
-
History Source: Patient and Coordinated Provider
Constitutional: Denies Fever
EENT: Reports No Symptoms Reported
Respiratory: Reports No Symptoms
Cardiac: Reports No Symptoms
Abdomen/GI: Reports No Symptoms
Genitourinary: Reports No Symptoms
Physical Exam
-
General: Well Developed, Well Nourished and No Apparent Distress
HEENT: Normocephalic, Atraumatic and Moist Mucous Membranes
Respiratory: Clear to Auscultation; Negative Wheezes, Rales or Rhonchi
Cardiac: Regular Rhythm and S1/S2
GI: Soft, Nontender and Nondistended
Musculoskeletal: No Clubbing, No Cyanosis, No Edema and Other (left hallux shallow ulceration)
Skin: Warm and Rash (cellulitic rash left lower ext markedly improved)
Neuro: Awake, Alert and Oriented
[2024-04-30 16:25] LABS: Glucose - Point of Care 253 mg/dl (70-99)
[2024-04-30] MEDS: NOVOLOG FLEXPEN-LOW RESISTANCE 3 UNITS SC (16:33)
[2024-04-30] MEDS: CRESTOR 20 MG PO (17:56)
--- NOTE | 2024-04-30 18:00 | PTCARENOTE ---
Podiatry into changed dressing to right heel, worsening appearance in comparison to yesterday, periwound and medial right heel cool to touch, foot and lower extremity warm, weak dorsalis pedis pulse but palpable. Pt is scheduled for arteriogram in
am. Vascular made aware of coolness of right heel wound, continue current plan of care, NPO after midnight , pt thought he was told to wash with Hibiclens prior to arteriogram, per vascular no wipes/ cleanse needed prior. Pt nervous about tomorrow
and current status of wound, emotional support provided. Pt call garcia within reach, plan of care continues.
[2024-04-30 18:09] VITALS: BP 141/64
[2024-04-30 18:26] LABS: Glucose - Point of Care 234 mg/dl (70-99)
--- NOTE | 2024-04-30 18:39 | W.PN.POD ---
Today's Communication
Today's Communication
Wound irrigated and packed with iodoform packing. No viable tissue noted to the plantar heel.
Will re evaluate wound care plan post tomorrow's Agram findings and plan.
Assessment / Plan
-
DM2 with PAD- arteriogram tomorrow
DM2 with DPN and LOPS
Increased gangrene to the right medial heel w/cellulitis right heel- vascular and ID following closely
Subjective
Chief Complaint
Right heel cellulitis and worsening of wound
Subjective
Patient states pain has improved to the right heel today, denies fever or chills, nausea or malaise
Objective
Temp Pulse Resp BP Pulse Ox
98.2 F 77 18 141/64 100
04/30/24 15:24 04/30/24 18:09 04/30/24 15:24 04/30/24 18:09 04/30/24 15:24
04/30/24 07:34
04/29/24 06:54
Vital Signs and Lab results were reviewed.
Inspection: Cellulitis, Ulcer and Infection
Review of Systems
Review of Systems
Review of Systems: No Fever, No Chills, No Nausea and No Diarrhea
Physical Exam
Physical Exam
General: No Apparent Distress, Comfortable and Conversant
Musculoskeletal: Edema, Right Lower Extrem (decreased)
Skin: Necrotic (increased necrosis/gangrene now advanced to the right medial heel, cellulitis persists. There is no odor. Periwound and medial right heel is cool to touch )
Neuro: AO x 3 and Protective Sensation Absent
Vascular: Capillary Refill Delayed, Pedal Hair Absent and Skin Temperature Warm to Cool
Dorsalis Pedis: Diminished
Posterior Tibialis: Absent
[2024-04-30 21:16] LABS: Glucose - Point of Care 200 mg/dl (70-99)
[2024-04-30] MEDS: MELATONIN 5 MG PO (21:55)
[2024-04-30 23:33] VITALS: BP 129/62
[2024-05-01] VITALS (9 sets, daily range): BP systolic 131–161; BP diastolic 66–76
[2024-05-01] MEDS: ZOSYN 50 IV ×4 (04:46→21:25)
[2024-05-01 06:05] LABS: Glucose - Point of Care 137 mg/dl (70-99)
[2024-05-01] MEDS: VANCOCIN 275 MG IV ×2 (06:07→18:48)
[2024-05-01 07:21] LABS: Hematocrit 35.9 % (39.0-52.0); Hemoglobin 12.2 g/dL (13.0-18.0); Mean Corpuscular Volume 85.3 fL (80.0-94.0); Mean Platelet Volume 9.2 fL (7.4-10.4); Platelet Count 233 10^3/uL (130-400); Red Blood Cell Count 4.21 10^6/uL (4.70-6.10); Red Cell Dist. Width 12.8 % (11.5-14.5); White Blood Cell Count 13.2 10^3/uL (4.8-10.8)
[2024-05-01 07:29] LABS: INR 1.35; PT 16.7 Sec (11.4-14.6)
[2024-05-01 07:30] LABS: APTT 39.5 Sec (23.4-35.0)
[2024-05-01 07:56] LABS: Blood Urea Nitrogen 22 mg/dl (9-20); Calcium 8.8 mg/dl (8.4-10.2); Carbon Dioxide 26 mmol/L (22-30); Chloride 102 mmol/L (98-107); Estimated Creatinine Clearance 82 ml/min; Glucose 114 mg/dl (70-99); Potassium 4.6 mmol/L (3.5-5.1); Sodium 135 mmol/L (135-145); eGFR > 60.00
[2024-05-01] MEDS: THERAGRAN 1 TABLET PO (09:21)
[2024-05-01] MEDS: OCUVITE SOFTGEL 2 CAP PO (09:21)
[2024-05-01] MEDS: COLACE 100 MG PO ×2 (09:21→20:34)
[2024-05-01] MEDS: DAKIN'S SOLUTION 0.125% 1/4 STRENGTH 1 ML TOPICAL (09:22)
[2024-05-01] MEDS: FARXIGA 5 MG PO (09:22)
[2024-05-01] MEDS: BACTROBAN 2% OINTMENT 1 APPLIC TOPICAL (09:22)
[2024-05-01] MEDS: HEPARIN 5000 UNITS SC ×2 (09:22→20:34)
[2024-05-01] MEDS: DESENEX/MITRAZOL/ZEASORB 1 APPLIC TOPICAL ×2 (09:23→23:08)
[2024-05-01] MEDS: LANTUS 0.16 UNITS SC (09:23)
--- NOTE | 2024-05-01 09:49 | W.SUR.PREOP ---
Pre-Operative Surgical Note
-
I have examined this patient prior to the performance of the scheduled procedure.
The patient's condition is unchanged from the time of the current History and
Physical and the patient is able to undergo the scheduled procedure.
--- NOTE | 2024-05-01 10:57 | PTCARENOTE ---
Pt is going for his procedure, report called and he will also be going to 328 due to Isolation for ESBL,attempted to call RN for report
[2024-05-01 11:38] LABS: Glucose - Point of Care 101 mg/dl (70-99)
--- NOTE | 2024-05-01 12:08 | CM ---
CM attempted to visit Romario today, however he was already off the floor for angiogram. RADHA will follow up later today.
--- NOTE | 2024-05-01 12:27 | CM ---
CM met with Romario to provide support; he was anticipating an angiogram which was scheduled for 9:30 this morning, but is still waiting to be taken down for the procedure. Romario anticipates being transferred to a private room on the third floor
today.
Romario shared that he had a procedure on his left leg that is the same thing that is scheduled for next week, but for his right leg. After the first procedure he was in [facility] and states he was 'down for 6 weeks'. The recovery was difficult, and he
is hopeful that it will be easier the second time around.
CM will continue to follow.
Plan: SNF vs. ARF based on patient's needs at time of discharge.
--- NOTE | 2024-05-01 12:55 | PTCARENOTE ---
Rpt given and the pt neel go down after his vascular procedure.
--- NOTE | 2024-05-01 13:05 | PHA.VAN.FU ---
Vancomycin Assessment / Plan
- Assessment
Renal Function: SCR Increasing (0.7>0.8)
WBC's are: Trending Down (14.1>13.2)
In the past 24 hrs, patient has been: Afebrile
Concomitant Antimicrobials: Piperacillin-tazobactam
- Dosing Plan
Continue: Vancomycin 1250mg IV Q12hrs
- Monitoring Plan
No level(s) ordered at this time: Will order levels according to vancomycin dosing protocol
- Follow Up
Pharmacy will continue to follow.
Vancomycin Follow UP
- -
Patient Age: 79
Patient Sex: Male
Vancomycin Day #: 4
Indication: Bone And Joint
Requesting Provider: Dr. Stiles / Chitra
Pertinent Antimicrobial Allergies:
NKDA
Height / Weight:
Height 5 ft 11 in
Actual Weight 90.917 kg
IBW in k.3
Adjusted BW in k.5
Pertinent Past Medical History: DM 2, PVD
- Vital Signs / Lab Results
Temp Pulse Resp BP Pulse Ox
98.5 F 63 18 146/69 98
05/01/24 07:45 05/01/24 07:45 05/01/24 07:45 05/01/24 07:45 05/01/24 09:30
Lab Results - Hematology
04/28/24 04/29/24 04/30/24
19:43 06:54 07:34
WBC 16.3 H 13.3 H 14.1 H
05/01/24
06:53
WBC 13.2 H
Lab Results - Chemistry
04/28/24 04/28/24 04/29/24
19:41 19:49 06:54
BUN Cancelled 37 H 26 H
Creatinine Cancelled 0.7 0.7
Estimated Creat Clear Cancelled 94
Albumin Cancelled 4.1 3.4 L
05/01/24
06:53
BUN 22 H
Creatinine 0.8
Estimated Creat Clear 82
Albumin
Microbiology Results
04/28/24 19:49 Wound Culture - Final
Heel - Right Escherichia coli - ESBL
Gram Stain - Final
04/28/24 22:49 MRSA Screen - Final
Nose No Methicillin Resistant Staphylococcus aureus isolated.
--- NOTE | 2024-05-01 13:32 | W.IMMPOSTOP ---
Surgical Immed Post Op Note
-
Primary Surgeon: Medardo Frey III, MD
Assisting Surgeon: Mikey Powell MD
Pre-op Diagnosis: PAD
Post-op Diagnosis: As above
Procedure Performed: Diagnostic RLE Angiogram
Anesthesia Type: Sedation
Specimen / Cultures: NA
Estimated Blood Loss: 2cc
Complications: None
Operative Findings:
Diffusely diseased distal popliteal artery, severe in-stent restenosis, severe PT disease. AT and Peroneal small caliber but present. Plan for popliteal - peroneal bypass ?saturday
--- NOTE | 2024-05-01 14:13 | W.PN.HOSP.TC ---
Today's Communication/Plan
-
continue Zosyn for now, await further input from ID, will defer to them if Vancomycin should be stopped
Assessment / Plan
Assessment / Plan
# Right heel ulcer, possible osteomyelitis
- MRI: Focal small soft tissue defect involving the superficial plantar soft tissues, inferior to the calcaneus. No evidence of collection to suggest abscess. No evidence for osteo myelitis.
Intermediate T1-weighted signal within the subcutaneous soft tissues off the plantar aspect of the posterior and inferior calcaneus, without significant enhancement postcontrast. This could represent soft tissue callus and/or relatively
devascularize soft tissues. No evidence of collection. No evidence for osteomyelitis of the calcaneus.
Numerous prominent tortuous enhancing varicose veins within the medial soft tissues of the right lower leg and ankle
-Vancomycin/Zosyn
-Podiatry consulted
-ID consulted
E. Coli - ESBL, sens to Zosyn
surgical intervention planned for Saturday 05/05, pt willing to stay in hospital to continue IV abx until that time
-Vascular consulted, will be having arteriogram in near future
-Hold Xarelto for debridement
History of osteomyelitis status post amputation of left third toe, right second/third toes
Peripheral vascular disease status post bypass of left lower extremity/stent of right lower extremity
-Hold Xarelto for debridement
Type 2 diabetes
-Continue dapagliflozin/metformin
-Continue Lantus 20 units
-Hold repaglinide
-Insulin sliding scale
Diabetic neuropathy
Hyperlipidemia
-Continue statin
History of subdural hematoma
Essential hypertension
-Continue lisinopril
Full code
DVT prophylaxis�heparin
Diabetic diet
Anticipated Discharge: > 48 hours
Subjective/Interval History
-
Date of Service: May 01, 2024
In good spirits, awaiting vascular evaluation
Objective Data
-
Labs:
Laboratory Results
07/26/24
06:53
WBC 13.2 H
Hgb 12.2 L
Hct 35.9 L
Plt Count 233
PT 16.7 H
INR 1.35
APTT 39.5 H
Sodium 135
Potassium 4.6
Chloride 102
Carbon Dioxide 26
BUN 22 H
Creatinine 0.8
Glucose 114 H
Calcium 8.8
Vital Signs:
Vital Signs
Temp Pulse Resp BP Pulse Ox
98.5 F 63 18 146/69 98
05/01/24 07:45 05/01/24 07:45 05/01/24 07:45 05/01/24 07:45 05/01/24 09:30
I&O
04/30/24 05/01/24 05/02/24
06:59 06:59 06:59
Intake Total 1420 / 1420 985 / 985
Output Total 725 / 725 225 / 225
Balance 695 / 695 760 / 760
Review of Systems
-
History Source: Patient and Coordinated Provider
Constitutional: Denies Fever
EENT: Reports No Symptoms Reported
Respiratory: Reports No Symptoms
Cardiac: Reports No Symptoms
Abdomen/GI: Reports No Symptoms
Genitourinary: Reports No Symptoms
Physical Exam
-
General: Well Developed, Well Nourished and No Apparent Distress
HEENT: Normocephalic, Atraumatic and Moist Mucous Membranes
Respiratory: Clear to Auscultation; Negative Wheezes, Rales or Rhonchi
Cardiac: Regular Rhythm and S1/S2
GI: Soft, Nontender and Nondistended
Musculoskeletal: No Clubbing, No Cyanosis, No Edema and Other (left hallux shallow ulceration)
Skin: Warm and Rash (cellulitic rash left lower ext markedly improved)
Neuro: Awake, Alert and Oriented
[2024-05-01 14:53] LABS: Glucose - Point of Care 64 mg/dl (70-99)
--- NOTE | 2024-05-01 15:04 | OR.RPT ---
Operative Report
Operative Report
Date of Operation: 05/01/2024
Pre Op Diagnosis: Critical limb threatening ischemia, right lower extremity
Post Op Diagnosis: Critical limb threatening ischemia, right lower extremity
Procedure:
1.) Selective catheterization of 3rd order lower extremity artery
2.) Diagnostic [id number] arteriogram
3.)Diagnostic right lower extremity arteriogram
4.)Ultrasound guided percutaneous access to the left common femoral artery
Surgeon: Medardo Frey III, MD
Bench Assembler: Mikey Powell MD PGY-2
Anesthesia: Sedation with local
Fluoroscopy:
7.3 min
63 mGy
21.10 Gy.cm2
Complications: None
Estimated Blood Loss: Minimal
History and Indications for Procedure: 79-year-old male with critical limb threatening ischemia of his right lower extremity manifested by necrotic heel wound and associated infection
Procedure in Detail: Romario Dent was correctly identified and placed supine on the operating table. After adequate induction of anesthesia the bilateral groins were prepped and draped in the usual sterile fashion. A timeout was performed
with the nursing and anesthesia staff confirming the patient's identity as well as the nature and laterality of the procedure.
The left common femoral artery was identified under ultrasound guidance. The artery was patent. The superior and inferior aspects of the femoral head were identified with radiographic guidance and marked at the skin level. The proposed puncture site
was infiltrated with local anesthesia. We saved a copy of the ultrasound image to the medical record. Under ultrasound guidance we accessed the left common femoral artery with a micropuncture needle and upsized to a 5 Fr sheath over a Bentson wire.
The wire and a ShepherVopium hook flush catheter were advanced into the distal abdominal aorta and a diagnostic aorto-biiliac arteriogram was performed:
AORTO-ILIAC ARTERIOGRAM:
Aorta: Patent with no stenosis identified
Right common iliac artery: Patent with no stenosis identified
Right external iliac artery: Patent with no stenosis identified
Left common iliac artery: Patent with no stenosis identified
Left external iliac artery: Patent with no stenosis identified
Under roadmap guidance using a Glidewire and the SheAngkor ResidenceserVopium hook catheter we selected the right common iliac artery and then the external iliac artery. A catheter was tracked up and over the aortic bifurcation and placed in the distal external iliac
artery. A diagnostic right lower extremity arteriogram was then performed which demonstrated the following:
RIGHT LOWER EXTREMITY:
Common femoral artery: Patent with no stenosis identified
Profunda femoral artery: Patent with no stenosis identified
Superficial femoral artery: Diffusely calcified but patent with no significant stenosis identified
The superficial femoral artery was then selected with the glidewire and catheter. The catheter was advanced to the mid SFA and the remainder of the right lower extremity arteriogram was performed.
Popliteal artery: Widely patent above the knee. Stent behind the knee extending below the knee is occluded
Anterior tibial artery: Patent stump but occluded thereafter. Reconstitutes near the ankle and continues into the foot to form the dorsalis pedis
Tibioperoneal trunk: Reconstituted and patent
Peroneal artery: Patent as the lone tibial artery runoff vessel no significant stenosis identified.
Posterior tibial artery: Occluded with no distal reconstitution
Severe small vessel occlusive disease is identified in the heel and plantar distribution.
Satisfied with this result we concluded the procedure. The sheath tip was pulled back into the left external iliac artery. The sheath was pulled and direct manual pressure was held over the puncture site. Hemostasis was achieved.
The patient tolerated the procedure well and was taken to the recovery area in stable condition.
Attestation: I was present and responsible for the entire procedure.
Signed:
Medardo Frey III, MD
[facility] Vascular Surgery
[phone] (gdrv)
[2024-05-01 15:11] LABS: Glucose - Point of Care 74 mg/dl (70-99)
[2024-05-01] MEDS: NSS 1000 IV (15:34)
--- NOTE | 2024-05-01 16:00 | PTCARENOTE ---
Received patient from PACU, he is A&Ox4, on IVF, left groin site c/d/i and soft to touch/no bleeding noted. LE pulses can be found with Doppler. Family is at bedside and is updated on plan of care and bed rest protocol
--- NOTE | 2024-05-01 16:10 | W.PN.UPDATE ---
Update Note
Progress Note Update
chart reviewed
patient out of the room during my rounds - in the OR
note podiatry concern for progressive gangrene
vascular post op diagnosis of limb threatening ischemia with diffuse disease, instent restenosis, severe PT disease, possible plan for pop-peroneal bypass
continue vancomycin given diptheroids seen in the wound culture, also zosyn with ESBL e coli
follow clinically
[2024-05-01 16:36] LABS: Glucose - Point of Care 83 mg/dl (70-99)
[2024-05-01] MEDS: FARXIGA PO (16:40)
[2024-05-01] MEDS: CRESTOR 20 MG PO (18:51)
[2024-05-01 21:04] LABS: Glucose - Point of Care 242 mg/dl (70-99)
[2024-05-02 00:05] VITALS: BP 143/66
[2024-05-02] MEDS: ZOSYN 50 IV ×4 (04:14→21:35)
[2024-05-02] MEDS: VANCOCIN 275 MG IV ×2 (05:08→17:10)
--- NOTE | 2024-05-02 06:52 | W.PN.VS ---
Today's Communication / Plan
-
Patient seen and examined at bedside with Dr. Medardo Frey III, below plan reviewed with attending.
Assessment/Plan
-
Assessment: 79-year-old male POD #1 Diagnostic right lower extremity arteriogram
Plan:
Patient will require right lower extremity arterial bypass for revascularization and optimization for wound healing
Plan is for bypass on 05/04/2024
Risk versus benefits and plan reviewed with patient who is agreeable to proceed
N.p.o. at midnight on 05/04
Continue antibiotics
Continue wound care
Subjective Data
-
Date of Service: May 02, 2024
Patient seen and examined at bedside, offers no complaints. Denies pain at left groin.
Objective Data
-
Vital Signs
Temp Pulse Resp BP Pulse Ox
97.3 F 54 16 143/66 96
05/01/24 23:53 05/01/24 23:53 05/01/24 23:53 05/02/24 00:05 05/01/24 23:53
Intake and Output
04/30/24 05/01/24 05/02/24
06:59 06:59 06:59
Intake Total 1420 / 1420 985 / 985 980 / 980
Output Total 725 / 725 225 / 225 1100 / 1100
Balance 695 / 695 760 / 760 -120 / -120
Intake:
Oral fluids 1320 / 1320 560 / 560 720 / 720
IV fluids (Total) 260 / 260
nss 100 / 100
IV piggybacks 100 / 100 425 / 425
Output:
Urine, Voided 725 / 725 225 / 225 1100 / 1100
Other:
Number of approximated MODERATE 1 2 2
amounts of urine
Number of approximated LARGE 3
amounts of urine
Calcium 8.8 mg/dl (8.4-10.2) 05/01/24 06:53
Total Bilirubin 0.4 mg/dl (0.2-1.3) 04/29/24 06:54
AST 25 U/L (17-59) 04/29/24 06:54
ALT 27 U/L (0-50) 04/29/24 06:54
Alkaline Phosphatase 117 U/L (38-126) 04/29/24 06:54
Total Protein 6.0 g/dl (6.3-8.2) L 04/29/24 06:54
Albumin 3.4 g/dl (3.5-5.0) L 04/29/24 06:54
Physical Exam
-
No apparent distress, resting bed comfortably
No tachycardia
No dyspnea on room air
ABD flat, nontender, nondistended
Left groin puncture site CDI, no evidence of hematoma, all surrounding compartments soft
[2024-05-02 07:25] LABS: Glucose - Point of Care 169 mg/dl (70-99)
[2024-05-02 07:43] VITALS: BP 155/70
[2024-05-02 08:24] LABS: Hematocrit 37.4 % (39.0-52.0); Hemoglobin 12.5 g/dL (13.0-18.0); Mean Corp Hgb Conc. 33.4 g/dL (33.0-37.0); Mean Corpuscular Hgb 28.2 pg (27.0-31.0); Mean Corpuscular Volume 84.2 fL (80.0-94.0); Mean Platelet Volume 9.5 fL (7.4-10.4); Platelet Count 285 10^3/uL (130-400); Red Blood Cell Count 4.44 10^6/uL (4.70-6.10); Red Cell Dist. Width 12.9 % (11.5-14.5); White Blood Cell Count 14.7 10^3/uL (4.8-10.8)
[2024-05-02 08:35] LABS: Blood Urea Nitrogen 26 mg/dl (9-20); Calcium 9.2 mg/dl (8.4-10.2); Chloride 103 mmol/L (98-107); Estimated Creatinine Clearance 94 ml/min; Glucose 177 mg/dl (70-99); Potassium 5.6 mmol/L (3.5-5.1); Sodium 138 mmol/L (135-145); eGFR > 60.00
[2024-05-02 08:45] LABS: Carbon Dioxide 27 mmol/L (22-30)
[2024-05-02] MEDS: LANTUS 0.16 UNITS SC (08:45)
[2024-05-02] MEDS: NOVOLOG FLEXPEN-LOW RESISTANCE 1 UNITS SC (08:45)
[2024-05-02] MEDS: OCUVITE SOFTGEL 2 CAP PO (08:47)
[2024-05-02] MEDS: HEPARIN 5000 UNITS SC ×2 (08:47→21:34)
[2024-05-02] MEDS: FARXIGA 5 MG PO ×2 (08:47→16:34)
[2024-05-02] MEDS: COLACE 100 MG PO ×2 (08:47→21:34)
[2024-05-02] MEDS: THERAGRAN 1 TABLET PO (08:47)
[2024-05-02] MEDS: DESENEX/MITRAZOL/ZEASORB 1 APPLIC TOPICAL ×2 (08:50→21:34)
--- NOTE | 2024-05-02 08:51 | PHA.VAN.FU ---
Vancomycin Assessment / Plan
- Assessment
Renal Function: No New Labs Today
In the past 24 hrs, patient has been: Afebrile
Concomitant Antimicrobials: piperacillin/tazo
- Dosing Plan
Continue: vancomycin 1250 mg q12h - first dose 04/29 0600
- Monitoring Plan
Peak Level: 05/02/24 2100- (after 8th dose)
Trough Level: 05/03/24 0530
- Follow Up
Pharmacy will continue to follow.
Vancomycin Follow UP
- -
Patient Age: 79
Patient Sex: Male
Vancomycin Day #: 5
Indication: Bone And Joint
Requesting Provider: Dr. Stiles / Chitra
Pertinent Antimicrobial Allergies:
NKDA
Height / Weight:
Height 5 ft 11 in
Actual Weight 90.917 kg
IBW in k.3
Adjusted BW in k.5
Pertinent Past Medical History: DM 2, PVD
- Vital Signs / Lab Results
Temp Pulse Resp BP Pulse Ox
98 F 51 16 155/70 99
05/02/24 07:43 05/02/24 07:43 05/02/24 07:43 05/02/24 07:43 05/02/24 07:43
Lab Results - Hematology
04/30/24 05/01/24 05/02/24
07:34 06:53 07:30
WBC 14.1 H 13.2 H 14.7 H
Lab Results - Chemistry
05/01/24 05/02/24
06:53 07:30
BUN 22 H 26 H
Creatinine 0.8 0.7
Estimated Creat Clear 82 94
Microbiology Results
04/28/24 19:49 Wound Culture - Final
Heel - Right Escherichia coli - ESBL
Gram Stain - Final
04/28/24 22:49 MRSA Screen - Final
Nose No Methicillin Resistant Staphylococcus aureus isolated.
--- NOTE | 2024-05-02 10:20 | W.PN.POD ---
Today's Communication
Today's Communication
Wound evaluated and redressed. Will apply Betadine dressing for now until revasc performed and as viability to tissue returns will hold off on debridement.
Discussed with Romario that healing the right heel wound may take a long time and he will have to be NWB to the heel for up to 6 mo with no guarantee that it will heal.
He states he understands and is willing to proceed.
Will follow along.
Assessment / Plan
-
DM2 with PAD- RLE bypass graft- planned 05/04 w/Dr Frey
DM2 with DPN and LOPS
Gangrene to the right medial heel w/ improved cellultis- Appreciate ID input/ ID following closely
Subjective
Chief Complaint
Gangrene right heel
Subjective
Patient sitting up at bedside, he is in good spirits and denies pain to the right heel today. He states he has decided he will proceed with RLE bypass graft
Objective
Temp Pulse Resp BP Pulse Ox
98 F 51 16 155/70 99
05/02/24 07:43 05/02/24 07:43 05/02/24 07:43 05/02/24 07:43 05/02/24 07:43
05/02/24 07:30
05/02/24 07:30
Vital Signs and Lab results were reviewed.
Inspection: Cellulitis (improved to the RLE) and Ulcer (right heel- necrotic area stable)
Review of Systems
Review of Systems
Review of Systems: No Fever, No Chills, No Nausea and No Diarrhea
Physical Exam
Physical Exam
General: No Apparent Distress, Comfortable and Conversant
Musculoskeletal: Edema, Right Lower Extrem (decreased) and Other (foot deformity with charcot foot righ and partial toe amps right, left toe amp)
Skin: Warm and Necrotic (necrotic area to the right medial heel stable and without deterioration. Unstageable. Continues to have some depth and undermining from original plantar central heel. There is no malodor. periwound is now warm to touch, no
purulence. + bloody drainage expressed)
Neuro: AO x 3 and Protective Sensation Absent
Vascular: Capillary Refill Delayed, Pedal Hair Absent and Skin Temperature Warm to Warm
Dorsalis Pedis: Diminished
Posterior Tibialis: Absent
[2024-05-02] MEDS: DAKIN'S SOLUTION 0.125% 1/4 STRENGTH TOPICAL (10:41)
[2024-05-02] MEDS: BACTROBAN 2% OINTMENT TOPICAL (10:41)
[2024-05-02 11:34] LABS: Glucose - Point of Care 221 mg/dl (70-99)
[2024-05-02] MEDS: NOVOLOG FLEXPEN-LOW RESISTANCE 2 UNITS SC ×2 (12:22→16:39)
[2024-05-02 15:27] VITALS: BP 128/63
--- NOTE | 2024-05-02 15:41 | W.PN.ID1 ---
Date of Service
Date of Service: May 02, 2024
Today's Communication
- wound cultures - ESBL E coli and Diptheroid
- for revascularization saturday
- continue vancomycin and zoysn at this time
- follow clinically
Assessment / Plan
Diabetic Foot Infection/Dry gangrene
Subacute Right Heel Wound
PAD/CAD
History of poor wound healing
- wound cultures - ESBL E coli and Diptheroid
- for revascularization saturday
- continue vancomycin and zoysn at this time
- follow clinically
Chief Complaint
-: Other (diabetic foot infection)
Subjective / Review of Systems
afebrile
bp stable
leukocytosis noted
note podiatry concern for progression - awaiting revascularization
Vital Signs / Physical Exam
Vital Signs
Vital Signs
Temp Pulse Resp BP Pulse Ox
97.9 F 53 16 128/63 95
05/02/24 15:27 05/02/24 15:27 05/02/24 15:27 05/02/24 15:27 05/02/24 15:27
Physical Exam
Constitutional: No Acute Distress
Cardiovascular: Regular Rate
Pulmonary: Symmetric
Wound: Other (dressing clean, dry, intact, deferred take down)
Objective Data
Lab Data
Lab Results
05/02/24 07:30
05/02/24 07:30
PT 16.7 Sec (11.4-14.6) H 05/01/24 06:53
INR 1.35 05/01/24 06:53
APTT 39.5 Sec (23.4-35.0) H 05/01/24 06:53
Estimated Creat Clear 94 ml/min 05/02/24 07:30
Total Bilirubin 0.4 mg/dl (0.2-1.3) 04/29/24 06:54
AST 25 U/L (17-59) 04/29/24 06:54
ALT 27 U/L (0-50) 04/29/24 06:54
Alkaline Phosphatase 117 U/L (38-126) 04/29/24 06:54
Most recent labs reviewed.
Micro Results:
04/28/24 19:49 Wound Culture - Final
Heel - Right Escherichia coli - ESBL
Gram Stain - Final
04/28/24 22:49 MRSA Screen - Final
Nose No Methicillin Resistant Staphylococcus aureus isolated.
[2024-05-02 16:30] LABS: Glucose - Point of Care 242 mg/dl (70-99)
[2024-05-02] MEDS: CRESTOR 20 MG PO (17:10)
--- NOTE | 2024-05-02 17:21 | W.PN.HOSP.TC ---
Today's Communication/Plan
-
continue insulin supplement
Assessment / Plan
Assessment / Plan
# Right heel ulcer, possible osteomyelitis
- MRI: Focal small soft tissue defect involving the superficial plantar soft tissues, inferior to the calcaneus. No evidence of collection to suggest abscess. No evidence for osteo myelitis.
Intermediate T1-weighted signal within the subcutaneous soft tissues off the plantar aspect of the posterior and inferior calcaneus, without significant enhancement postcontrast. This could represent soft tissue callus and/or relatively
devascularize soft tissues. No evidence of collection. No evidence for osteomyelitis of the calcaneus.
Numerous prominent tortuous enhancing varicose veins within the medial soft tissues of the right lower leg and ankle
-Vancomycin/Zosyn
-Podiatry consulted
-ID consulted
E. Coli - ESBL, sens to Zosyn
remains on Vancomycin
surgical intervention planned for Friday 05/04: Rt LE arterial bypass is planned
-Hold Xarelto for debridement until post op
WBC 14.1-->13.2-->14.7
History of osteomyelitis status post amputation of left third toe, right second/third toes
Peripheral vascular disease status post bypass of left lower extremity/stent of right lower extremity
Type 2 diabetes
-Continue dapagliflozin
-Continue Lantus 20 units
-Hold repaglinide, Metformin
-Insulin sliding scale
glu [id number]
Diabetic neuropathy
Hyperlipidemia
-Continue statin
History of subdural hematoma
Essential hypertension
-Continue lisinopril
Full code
DVT prophylaxis�heparin
Diabetic diet
Anticipated Discharge: > 48 hours
Subjective/Interval History
-
Date of Service: May 02, 2024
In good spirits, only request is to be allowed to shower
Objective Data
-
Labs:
Laboratory Results
05/02/24
07:30
WBC 14.7 H
Hgb 12.5 L
Hct 37.4 L
Plt Count 285 D
Sodium 138
Potassium 5.6 H
Chloride 103
Carbon Dioxide 27
BUN 26 H
Creatinine 0.7
Glucose 177 H
Calcium 9.2
Vital Signs:
Vital Signs
Temp Pulse Resp BP Pulse Ox
97.9 F 53 16 128/63 95
05/02/24 15:27 05/02/24 15:27 05/02/24 15:27 05/02/24 15:27 05/02/24 15:27
I&O
05/01/24 05/02/24 05/03/24
06:59 06:59 06:59
Intake Total 985 / 985 980 / 980 1140 / 1140
Output Total 225 / 225 1100 / 1100 900 / 900
Balance 760 / 760 -120 / -120 240 / 240
Review of Systems
-
History Source: Patient and Coordinated Provider
Constitutional: Denies Fever
EENT: Reports No Symptoms Reported
Respiratory: Reports No Symptoms
Cardiac: Reports No Symptoms
Abdomen/GI: Reports No Symptoms
Genitourinary: Reports No Symptoms
Neuro: Reports No Symptoms
Physical Exam
-
General: Well Developed, Well Nourished and No Apparent Distress
HEENT: Normocephalic, Atraumatic and Moist Mucous Membranes
Respiratory: Clear to Auscultation; Negative Wheezes, Rales or Rhonchi
Cardiac: Regular Rhythm and S1/S2
GI: Soft, Nontender and Nondistended
Musculoskeletal: No Clubbing, No Cyanosis, No Edema and Other (left hallux shallow ulceration)
Skin: Warm and Rash (cellulitic rash left lower ext markedly improved)
Neuro: Awake, Alert and Oriented
[2024-05-02 20:57] LABS: Vancomycin Peak 28.3 ug/ml (18-26)
[2024-05-02 21:04] LABS: Glucose - Point of Care 215 mg/dl (70-99)
[2024-05-02 23:53] VITALS: BP 124/61
[2024-05-03] MEDS: MELATONIN 5 MG PO ×2 (03:54→18:03)
[2024-05-03] MEDS: ZOSYN 50 IV ×4 (03:54→21:43)
[2024-05-03] MEDS: VANCOCIN 275 MG IV ×2 (05:46→18:02)
--- NOTE | 2024-05-03 06:08 | W.PN.UPDATE ---
Update Note
Progress Note Update
I had a long conversation with Romario. I explained the results of his lower extremity arteriogram. I explained that there is no meaningful endovascular solution for the popliteal artery occlusion and tibial artery disease. I also explained that
he has severe small vessel occlusive disease especially in the distribution of his heel wound.
I explained that the revascularization strategy for limb preservation would involve a bypass from his above-knee popliteal artery/distal SFA to the peroneal artery in the proximal calf where it reconstitutes. The technical aspects of this procedure
were discussed with him in detail. The benefits and rationale for this approach were discussed with him in detail. Operative risks were discussed with him in detail including but not limited to bleeding, heart attack, infection, leg swelling,
wound healing complications, failure of the bypass and the need for additional procedures. We discussed the anticipated postoperative recovery both inpatient and outpatient. I was also clear with him that he will require debridement of the heel
wound and this may include multiple trips to the operating room after the bypass to achieve wound healing. I explained to him that given the small vessel disease in his foot even with the bypass he may not be able to heal the wound.
His other option would be to proceed with a primary amputation below the knee.
He is interested in limb preservation. He has agreed to proceed with lower extremity bypass which will be on 05/04/2024.
Please call with any questions or concerns
Medardo Frey III, MD
[facility] V[facility] Surgery
[phone] (xnef)
[2024-05-03 07:00] VITALS: BP 131/68
[2024-05-03] MEDS: THERAGRAN 1 TABLET PO (07:29)
[2024-05-03] MEDS: HEPARIN 5000 UNITS SC ×2 (07:29→20:02)
[2024-05-03] MEDS: OCUVITE SOFTGEL 2 CAP PO (07:29)
[2024-05-03] MEDS: COLACE 100 MG PO ×2 (07:29→20:02)
[2024-05-03] MEDS: DESENEX/MITRAZOL/ZEASORB 1 APPLIC TOPICAL ×2 (07:30→19:56)
[2024-05-03] MEDS: FARXIGA 5 MG PO ×2 (07:30→17:35)
[2024-05-03] MEDS: LANTUS 0.16 UNITS SC (07:35)
[2024-05-03] MEDS: NOVOLOG FLEXPEN-LOW RESISTANCE SC (07:35)
[2024-05-03 07:36] LABS: Glucose - Point of Care 134 mg/dl (70-99)
[2024-05-03 08:10] LABS: Vancomycin Trough 31.1 ug/ml (5-20)
--- NOTE | 2024-05-03 09:44 | PHA.VAN.FU ---
Vancomycin Assessment / Plan
- Assessment
Renal Function: Stable
WBC's are: Trending Up
In the past 24 hrs, patient has been: Afebrile
Concomitant Antimicrobials: piperacillin/tazo
- Assessment - Therapeutic Drug Monitoring
Extrapolated Cmax (mcg/mL): 28.3
Peak level was drawn: Appropriately
Extrapolated Cmin (mcg/mL): 31.1
Trough Drawn: While dose was infusing
unable to calculate AUC since trough was drawn while dose was infusing ( Vanc was hung at 0546; Trough was drawn at 0627)
- Dosing Plan
Continue: vancomycin 1250 mg q12
pt is scheduled fpr a LE bypass revascularization Saturday
- Monitoring Plan
Trough Level: will order trough only tomorrow to assess dosing
- Follow Up
Pharmacy will continue to follow.
Vancomycin Follow UP
- -
Patient Age: 79
Patient Sex: Male
Vancomycin Day #: 6
Indication: Bone And Joint
Requesting Provider: Dr. Stiles / Chitra
Pertinent Antimicrobial Allergies:
NKDA
Height / Weight:
Height 5 ft 11 in
Actual Weight 90.917 kg
IBW in k.3
Adjusted BW in k.5
Pertinent Past Medical History: DM 2, PVD
- Vital Signs / Lab Results
Temp Pulse Resp BP Pulse Ox
97.8 F 57 16 131/68 97
05/03/24 07:00 05/03/24 07:00 05/03/24 07:00 05/03/24 07:00 05/03/24 07:00
Lab Results - Hematology
05/01/24 05/02/24
06:53 07:30
WBC 13.2 H 14.7 H
Lab Results - Chemistry
05/01/24 05/02/24
06:53 07:30
BUN 22 H 26 H
Creatinine 0.8 0.7
Estimated Creat Clear 82 94
Microbiology Results
04/28/24 19:49 Wound Culture - Final
Heel - Right Escherichia coli - ESBL
Gram Stain - Final
Therapeutic Drug Monitoring
Vancomycin Peak 28.3 ug/ml (18-26) H 05/02/24 20:34
Vancomycin Trough 31.1 ug/ml (5-20) H* 05/03/24 06:27
[2024-05-03] MEDS: DAKIN'S SOLUTION 0.125% 1/4 STRENGTH 473 ML TOPICAL (10:14)
[2024-05-03 11:53] LABS: Glucose - Point of Care 152 mg/dl (70-99)
[2024-05-03] MEDS: NOVOLOG FLEXPEN-LOW RESISTANCE 1 UNITS SC (12:03)
--- NOTE | 2024-05-03 12:10 | PTCARENOTE ---
Pt reports redness following vanco infusion last night. Discussed w/ hospitalist and ID. Plan to still give infusion tonight at slower rate.
[2024-05-03 15:00] VITALS: BP 138/67
--- NOTE | 2024-05-03 15:27 | W.PN.HOSP.TC ---
Today's Communication/Plan
-
Lower Ext bypass scheduled for tomorrow
Vanco dosing to be adjusted by pharmacy (as per [place], pharmacist) believes trough was drawn while receiving infusion, this will be rechecked tomorrow and to avoid 'red man syndrome' infusion will be slowed
Assessment / Plan
Assessment / Plan
# Right heel ulcer, possible osteomyelitis
- MRI: Focal small soft tissue defect involving the superficial plantar soft tissues, inferior to the calcaneus. No evidence of collection to suggest abscess. No evidence for osteo myelitis.
Intermediate T1-weighted signal within the subcutaneous soft tissues off the plantar aspect of the posterior and inferior calcaneus, without significant enhancement postcontrast. This could represent soft tissue callus and/or relatively
devascularize soft tissues. No evidence of collection. No evidence for osteomyelitis of the calcaneus.
Numerous prominent tortuous enhancing varicose veins within the medial soft tissues of the right lower leg and ankle
-Vancomycin/Zosyn
-Podiatry consulted
-ID consulted
E. Coli - ESBL, sens to Zosyn
remains on Vancomycin
surgical intervention planned for Friday 05/04: Rt LE arterial bypass is planned
-Hold Xarelto for debridement until post op
WBC 14.1-->13.2-->14.7
developed red rash from Vanco while instilling, with elevated levels will place on hold and request pharm to adjust
History of osteomyelitis status post amputation of left third toe, right second/third toes
Peripheral vascular disease status post bypass of left lower extremity/stent of right lower extremity
Type 2 diabetes
-Continue dapagliflozin
-Continue Lantus 20 units
-Hold repaglinide, Metformin
-Insulin sliding scale
glu 169-242
pt will be NPO in AM, will start D51/2NS tomorrow morning to avoid hypoglycemia
Diabetic neuropathy
Hyperlipidemia
-Continue statin
History of subdural hematoma
Essential hypertension
-Continue lisinopril
Full code
DVT prophylaxis�heparin
Diabetic diet
Anticipated Discharge: > 48 hours
Subjective/Interval History
-
Date of Service: May 03, 2024
Became red when receiving Vancomyin today
Objective Data
-
Vital Signs:
Vital Signs
Temp Pulse Resp BP Pulse Ox
97.8 F 57 16 131/68 97
05/03/24 07:00 05/03/24 07:00 05/03/24 07:00 05/03/24 07:00 05/03/24 07:00
I&O
05/02/24 05/03/24 05/04/24
06:59 06:59 06:59
Intake Total 980 / 980 1620 / 1620
Output Total 1100 / 1100 1200 / 1200
Balance -120 / -120 420 / 420
Review of Systems
-
History Source: Patient and Coordinated Provider
Constitutional: Denies Fever
EENT: Reports No Symptoms Reported
Respiratory: Reports No Symptoms
Cardiac: Reports No Symptoms
Abdomen/GI: Reports No Symptoms
Genitourinary: Reports No Symptoms
Neuro: Reports No Symptoms
Physical Exam
-
General: Well Developed, Well Nourished and No Apparent Distress
HEENT: Normocephalic, Atraumatic and Moist Mucous Membranes
Respiratory: Clear to Auscultation; Negative Wheezes, Rales or Rhonchi
Cardiac: Regular Rhythm and S1/S2
GI: Soft, Nontender and Nondistended
Musculoskeletal: No Clubbing, No Cyanosis, No Edema and Other (left hallux shallow ulceration)
Skin: Warm and Rash (cellulitic rash left lower ext markedly improved)
Neuro: Awake, Alert and Oriented
[2024-05-03 16:17] LABS: Glucose - Point of Care 206 mg/dl (70-99)
[2024-05-03 16:17] LABS: Blood Urea Nitrogen 23 mg/dl (9-20); Calcium 8.9 mg/dl (8.4-10.2); Carbon Dioxide 30 mmol/L (22-30); Chloride 101 mmol/L (98-107); Estimated Creatinine Clearance 82 ml/min; Glucose 216 mg/dl (70-99); Potassium 4.7 mmol/L (3.5-5.1); Sodium 135 mmol/L (135-145); eGFR > 60.00
[2024-05-03] MEDS: NOVOLOG FLEXPEN-LOW RESISTANCE 2 UNITS SC (16:22)
[2024-05-03] MEDS: CRESTOR 20 MG PO (17:35)
--- NOTE | 2024-05-03 18:30 | W.PN.POD ---
Today's Communication
Today's Communication
Right heel re-dressed with betadine dressing.
RLE bypass tomorrow 05/04/24
ID/ Dr Buenrostro following leukocytosis/ ESBL e.coli/Diptheroids on IV ABT
Will follow along
Assessment / Plan
-
DM2 with PAD- RLE bypass graft- planned 05/04 w/Dr Frey
DM2 with DPN and LOPS
Gangrene to the right medial heel w cellultis- Appreciate ID input
Subjective
Chief Complaint
dry gangrene right heel
Subjective
Patient states he has no pain at present.
Objective
Temp Pulse Resp BP Pulse Ox
98.5 F 61 18 138/67 99
05/03/24 15:00 05/03/24 15:00 05/03/24 15:00 05/03/24 15:00 05/03/24 15:00
05/02/24 07:30
05/03/24 15:50
Vital Signs and Lab results were reviewed.
Inspection: Cellulitis (some return of cellultis to the medial ankle)
Review of Systems
Review of Systems
Review of Systems: No Fever, No Chills, No Nausea and No Diarrhea
Physical Exam
Physical Exam
General: No Apparent Distress, Comfortable and Conversant
Musculoskeletal: Edema, Right Lower Extrem (minimal)
Skin: Warm and Necrotic (right plantar and medial heel ulceration is somewhat larger than it was yesterday, however, the area is warmer to touch)
Neuro: AO x 3 and Protective Sensation Absent
Vascular: Capillary Refill Delayed and Pedal Hair Absent
Dorsalis Pedis: Diminished
Posterior Tibialis: Absent
[2024-05-03 21:31] LABS: Glucose - Point of Care 205 mg/dl (70-99)
[2024-05-03 23:57] VITALS: BP 144/66
[2024-05-04] VITALS (10 sets, daily range): BP systolic 124–156; BP diastolic 56–68
[2024-05-04] MEDS: ZOSYN 50 IV ×3 (03:26→23:21)
[2024-05-04] MEDS: VANCOCIN 275 MG IV ×2 (05:42→21:03)
[2024-05-04] MEDS: D5/0.45%NACL 1000 IV (05:42)
[2024-05-04 06:13] LABS: Hematocrit 39.7 % (39.0-52.0); Hemoglobin 13.3 g/dL (13.0-18.0); Mean Corp Hgb Conc. 33.5 g/dL (33.0-37.0); Mean Corpuscular Hgb 28.1 pg (27.0-31.0); Mean Corpuscular Volume 83.8 fL (80.0-94.0); Mean Platelet Volume 9.2 fL (7.4-10.4); Platelet Count 321 10^3/uL (130-400); Red Blood Cell Count 4.74 10^6/uL (4.70-6.10); Red Cell Dist. Width 12.9 % (11.5-14.5); White Blood Cell Count 15.2 10^3/uL (4.8-10.8)
[2024-05-04 06:22] LABS: INR 1.19; PT 14.9 Sec (11.4-14.6)
[2024-05-04 06:23] LABS: APTT 31.8 Sec (23.4-35.0)
[2024-05-04 06:26] LABS: Vancomycin Trough 16.4 ug/ml (5-20)
[2024-05-04 06:34] LABS: Blood Urea Nitrogen 22 mg/dl (9-20); Calcium 9.1 mg/dl (8.4-10.2); Carbon Dioxide 25 mmol/L (22-30); Chloride 103 mmol/L (98-107); Estimated Creatinine Clearance 82 ml/min; Glucose 165 mg/dl (70-99); Potassium 4.8 mmol/L (3.5-5.1); Sodium 138 mmol/L (135-145); eGFR > 60.00
[2024-05-04 07:37] LABS: Glucose - Point of Care 200 mg/dl (70-99)
[2024-05-04] MEDS: LANTUS 0.16 UNITS SC (07:45)
[2024-05-04] MEDS: OCUVITE SOFTGEL 2 CAP PO (07:45)
[2024-05-04] MEDS: FARXIGA 5 MG PO (07:45)
[2024-05-04] MEDS: THERAGRAN 1 TABLET PO (07:45)
[2024-05-04] MEDS: DESENEX/MITRAZOL/ZEASORB 1 APPLIC TOPICAL ×2 (07:45→21:40)
[2024-05-04] MEDS: NOVOLOG FLEXPEN-LOW RESISTANCE 2 UNITS SC (07:46)
[2024-05-04] MEDS: HEPARIN SC (07:48)
[2024-05-04] MEDS: COLACE 100 MG PO (07:48)
[2024-05-04] MEDS: MILK OF MAGNESIA 30 ML PO (07:55)
--- NOTE | 2024-05-04 10:26 | PHA.VAN.FU ---
Vancomycin Assessment / Plan
- Assessment
Renal Function: Stable
WBC's are: Stable
In the past 24 hrs, patient has been: Afebrile
Concomitant Antimicrobials: piperacillin/tazobactam
- Assessment - Trough Based Monitoring
Trough Value: 16.4
Level Today was: Appropriate
Level Comments: drawn ~11.75H after 10th maintenance dose
If extrapolate prior peak drawn 05/02 to being drawn 05/03, would provide the following patient-specific PK:
ke=0.0663
t1/2 = 10.5H
Cmax = 31 mcg/ml
Cmin = 16 mcg/ml
Vd = 68.6 L (~0.75 L/kg)
Vanc Cl = 4.5 L/H (75.75 ml/min)
- Dosing Plan
Continue: Vanc 1250mg Q12H infused over 2 hours
- Monitoring Plan
No level(s) ordered at this time: consider repeat levels later this week to confirm extrapolated PK
- Follow Up
Pharmacy will continue to follow.
Vancomycin Follow UP
- -
Patient Age: 79
Patient Sex: Male
Vancomycin Day #: 7
Indication: Bone And Joint
Requesting Provider: Dr. Stiles / Chitra
Pertinent Antimicrobial Allergies:
NKDA
Height / Weight:
Height 5 ft 11 in
Actual Weight 90.917 kg
IBW in k.3
Adjusted BW in k.5
Pertinent Past Medical History: DM 2, PVD
- Vital Signs / Lab Results
Temp Pulse Resp BP Pulse Ox
97.8 F 67 16 135/67 98
05/04/24 07:43 05/04/24 07:43 05/04/24 07:43 05/04/24 07:43 05/04/24 07:43
Lab Results - Hematology
05/02/24 05/04/24
07:30 05:42
WBC 14.7 H 15.2 H
Lab Results - Chemistry
05/02/24 05/03/24 05/04/24
07:30 15:50 05:42
BUN 26 H 23 H 22 H
Creatinine 0.7 0.8 0.8
Estimated Creat Clear 94 82 82
Therapeutic Drug Monitoring
Vancomycin Peak 28.3 ug/ml (18-26) H 05/02/24 20:34
Vancomycin Trough 16.4 ug/ml (5-20) 05/04/24 05:42
[2024-05-04 11:44] LABS: Glucose - Point of Care 110 mg/dl (70-99)
--- NOTE | 2024-05-04 12:10 | CM ---
CM following for d/c planning
Chart reviewed
Pt for RLE bypass today
ID following
Vascular following
Podiatry following
PT/OT eval pending post op
Received call from daughter Lilibeth [phone] ([email or web address])
Discussed placement options - prefers [facility] and [facility]
Referral to be sent when PT/OT evals completed
Plan - anticipate snf vs rehab when medically stable - TBD
[2024-05-04] MEDS: DAKIN'S SOLUTION 0.125% 1/4 STRENGTH 473 ML TOPICAL (12:14)
[2024-05-04] MEDS: NOVOLOG FLEXPEN-LOW RESISTANCE SC ×2 (12:15→21:42)
[2024-05-04] MEDS: BACTROBAN 2% OINTMENT 1 APPLIC NASAL (12:20)
[2024-05-04] MEDS: PERIDEX 0.12% ORAL RINSE 15 ML PO (12:21)
--- NOTE | 2024-05-04 12:37 | PTCARENOTE ---
Pt transferred to vascular OR - picked up by OR team. Will go to ICU post procedure.
--- NOTE | 2024-05-04 12:57 | W.PN.HOSP.TC ---
Today's Communication/Plan
-
RLE bypass today with Vascular
continue IV abx per ID
Assessment / Plan
Assessment / Plan
Assessment:
Right heel ulcer, possible osteomyelitis
- MRI: Focal small soft tissue defect involving the superficial plantar soft tissues, inferior to the calcaneus. No evidence of collection to suggest abscess. No evidence for osteo myelitis. Intermediate T1-weighted signal within the subcutaneous
soft tissues off the plantar aspect of the posterior and inferior calcaneus, without significant enhancement postcontrast. This could represent soft tissue callus and/or relatively devascularize soft tissues. No evidence of collection. No evidence
for osteomyelitis of the calcaneus. Numerous prominent tortuous enhancing varicose veins within the medial soft tissues of the right lower leg and ankle.
- continue Vanco/Zosyn per ID. ESBL in culture
- Podiatry and Vascular following
- for RLE bypass today; Xarelto on hold
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
- improved with slower infusion
History of osteomyelitis status post amputation of left third toe, right second/third toes
Peripheral vascular disease status post bypass of left lower extremity/stent of right lower extremity
Type 2 diabetes
- continue dapagliflozin
- continue Lantus 20 units
- Hold repaglinide, Metformin
- insulin sliding scale
Diabetic neuropathy
Hyperlipidemia
- continue statin
History of subdural hematoma
Essential hypertension
- continue lisinopril
DVT ppx: Heparin
Code: Full
Anticipated Discharge: 24 - 48 hours
Subjective/Interval History
-
Date of Service: May 04, 2024
no complaints
for RLE bypass today
Objective Data
-
Labs:
Laboratory Results
05/04/24
05:42
WBC 15.2 H
Hgb 13.3
Hct 39.7
Plt Count 321
PT 14.9 H
INR 1.19
APTT 31.8
Sodium 138
Potassium 4.8
Chloride 103
Carbon Dioxide 25
BUN 22 H
Creatinine 0.8
Glucose 165 H
Calcium 9.1
Vital Signs:
Vital Signs
Temp Pulse Resp BP Pulse Ox
97.8 F 67 16 135/67 98
05/04/24 07:43 05/04/24 07:43 05/04/24 07:43 05/04/24 07:43 05/04/24 07:43
I&O
05/03/24 05/04/24 05/05/24
06:59 06:59 06:59
Intake Total 1620 / 1620 1200 / 1200
Output Total 1200 / 1200 1150 / 1150
Balance 420 / 420 50 / 50
Physical Exam
-
General: No Apparent Distress
HEENT: Normocephalic and Atraumatic
Respiratory: Negative Wheezes
Cardiac: Regular Rhythm and S1/S2
GI: Soft
Genito-urinary: No Costovertebral Tender
Musculoskeletal: No Edema
Neuro: AO x 3
Hematologic / Lymphatic: No Lymphadenopathy
Psych: Calm
Data Reviewed
-
Total Time Spent with Patient (in minutes): 44
Labs: Labs Reviewed by me
[2024-05-04 13:08] LABS: Glucose - Point of Care 95 mg/dl (70-99)
[2024-05-04 17:20] LABS: ACT-LR - POC 295 Seconds (116-155)
[2024-05-04 18:10] LABS: ACT-LR - POC 237 Seconds (116-155)
[2024-05-04 18:10] LABS: Glucose - Point of Care 55 mg/dl (70-99)
[2024-05-04 18:35] LABS: Glucose - Point of Care 103 mg/dl (70-99)
--- NOTE | 2024-05-04 19:22 | OR.RPT ---
Operative Report
Operative Report
Date of Operation: 05/04/2024
Pre Op Diagnosis: Critical limb threatening ischemia, right lower extremity
Post Op Diagnosis: Critical limb threatening ischemia, right lower extremity
Procedure: Right lower extremity above-knee popliteal artery to peroneal artery using ipsilateral non-reversed great saphenous vein
Surgeon: Medardo Frey III, MD
Assistants: Mikey Powell MD PGY-2; Carissa Webster MD PGY-1
Anesthesia: General
Complications: None
Estimated Blood Loss: 150 cc
History and Indications for Procedure: 79-year-old male with critical limb threatening ischemia of his right lower extremity manifested by a nonhealing necrotic right heel wound.
Procedure in Detail: Romario Dent was correctly identified and placed supine on the operating table. After adequate induction of anesthesia the right greater saphenous vein was imaged with ultrasound and marked. The abdomen, pelvis, right
groin and right lower extremity circumferentially were then positioned, prepped and draped in the usual sterile fashion. Preoperative antibiotics were administered. A timeout procedure was performed with the nursing and anesthesia staff confirming
the patients identity as well as the nature and laterality of the procedure.
An incision was made from the right groin to the distal thigh over the right greater saphenous vein lupe. The vein was harvested along this entire course. All branches were ligated and divided between ties and clips. The vein appeared to be of
adequate caliber and quality to be used as a bypass conduit. The above-knee popliteal artery was then exposed through the same incision at the distal thigh. A combination of sharp dissection and electrocautery were used to expose the artery.
Proximal and distal control was obtained with vessel loops.
The peroneal artery was chosen as the distal target and was sharply exposed through a mid calf incision. Proximal and distal control was obtained with vessel loops.
A tunnel was then created between the distal target exposure and the above-knee popliteal artery. The distal end of the saphenous vein was ligated with a tie and clip. The distal end of the vein was transected and then the vein was dilated with
heparinized saline. All branch points were closely inspected. The vein was marked for proper orientation. A right ankle clamp was placed at the sapheno-femoral junction and the proximal end of the vein was transected. The SFJ stump was ligated with
a silk suture ligature.
The patient was systemically heparinized. The proximal and distal vessel loops on the above-knee popliteal artery were secured. An arteriotomy was made in the popliteal artery and extended proximally and distally with Yoon scissors. The saphenous
vein was brought back to the field and oriented in a nonreversed fashion. The proximal portion of the vein was everted and the first valve was lysed under direct visualization. The proximal end of the vein was spatulated and an end-to-side
anastomosis was created with a running 6-0 Prolene suture. The anastomosis was completed and the vessel loops were released. A LeMaitre self-expanding valvulotome was then carefully passed retrograde through the distal end of the vein. The
valvulotome was deployed in the proximal end of the vein and slowly withdrawn through the bypass. 2 passes were made. Following this there was brisk pulsatile bleeding from the end of the vein conduit. The proximal suture line was inspected for
hemostasis and was achieved.
While pressurized the vein was then carefully brought through the tunnel, taking great care to keep proper orientation. A lupe was placed on the distal end of the vein for the appropriate length for the anastomosis while pressurized. A vascular
clamp was gently placed on the proximal aspect of the vein just off the proximal anastomosis.
The proximal and distal vessel loops on the peroneal artery were secured. The vein was shortened appropriately. An arteriotomy was made in the peroneal artery and extended proximally and distally with Yoon scissors. The end of the vein conduit was
spatulated and an end-to-side anastomosis created with a running 7-0 Prolene. Prior to the completion of the anastomosis the proximal bulldog clamp was temporarily released and the vein graft allowed to forward bleed. The area under the anastomosis
was irrigated with heparinized saline and the anastomosis completed. The proximal clamp and then the vessel loops on the peroneal artery were released. Immediately there was a pulse in the vein conduit and the distal peroneal artery beyond the
distal anastomosis. The suture lines were both inspected and hemostasis was achieved.
Hemostasis was achieved in the wound beds. A #10 EDI drain was left in the right thigh saphenectomy bed. The wounds were irrigated with warm saline solution. The wounds were closed in layers. Sterile dressings were applied.
The patient tolerated the procedure well and was taken to the PACU in stable condition.
Attestation: I was present and responsible for the entire procedure
Signed:
Medardo Frey III, MD
[facility]
[phone] (cell)
[2024-05-04 19:59] LABS: Glucose - Point of Care 100 mg/dl (70-99)
--- NOTE | 2024-05-04 19:59 | W.IMMPOSTOP ---
Surgical Immed Post Op Note
-
Primary Surgeon: Medardo Frey III, MD
Assisting Surgeon: Mikey Powell MD
Pre-op Diagnosis: PAD
Post-op Diagnosis: PAD
Procedure Performed: Right Distal Popliteal - Peroneal artery bypass (SVG)
Anesthesia Type: General
Specimen / Cultures: NA
Estimated Blood Loss: 150cc
Complications: None
Operative Findings:
Saphenous vein was harvested in an open manner. The distal above-knee popliteal artery and the peroneal artery (correlating with angiographic evidence of disease) were exposed. The saphenous vein was tunneled in the subcuticular tissue adjoining the
2 arteries of interest, and sewn in an end-side fashion on both ends using running 6-0/7-0 prolenes. The bypass had a strong pulse following and signals were identified on doppler. Hemostasis was confirmed and the incision sites were closed using
running 2-0 vicryl, 3-0 vicryl, and overlying derik. A EDI drain was left in place of saphenous vein harvesting.
[2024-05-04 20:36] LABS: Hematocrit 32.7 % (39.0-52.0); Hemoglobin 11.1 g/dL (13.0-18.0); Mean Corp Hgb Conc. 33.9 g/dL (33.0-37.0); Mean Corpuscular Hgb 28.4 pg (27.0-31.0); Mean Corpuscular Volume 83.6 fL (80.0-94.0); Platelet Count 261 10^3/uL (130-400); Red Blood Cell Count 3.91 10^6/uL (4.70-6.10); White Blood Cell Count 20.2 10^3/uL (4.8-10.8)
[2024-05-04 20:48] LABS: INR 1.42; PT 17.2 Sec (11.4-14.6)
[2024-05-04 20:51] LABS: APTT 121.1 Sec (23.4-35.0)
[2024-05-04] MEDS: NSS 1000 IV (20:57)
[2024-05-04 21:14] LABS: Blood Urea Nitrogen 19 mg/dl (9-20); Calcium 7.8 mg/dl (8.4-10.2); Carbon Dioxide 24 mmol/L (22-30); Estimated Creatinine Clearance 110 ml/min; Glucose 95 mg/dl (70-99); eGFR > 60.00
--- NOTE | 2024-05-04 21:15 | PTCARENOTE ---
rec`d pt at 2114 from PACU. pt drowsy but arousable to verbal stimuli. rt fem puncture site from vascular sx. site covered with aquacell. c/d/i. EDI placed in rt leg. + pulses in pt/dp via doppler. left foot has bounding Pulses. rt foot has soft
pulses but they are present. SB to SR on monitor. A line zeroed and transduced. RA POX 99%. diet advanced to clears. farah draining yellow urine. left FA 18. rt hand 20. NS @80. call garcia in reach. safe environment. family at bedside.
[2024-05-04] MEDS: COLACE PO (21:40)
[2024-05-04] MEDS: D5/0.45%NACL IV (21:41)
[2024-05-04 21:42] LABS: Potassium 3.9 mmol/L (3.5-5.1); Sodium 135 mmol/L (135-145)
[2024-05-04] MEDS: CRESTOR PO (21:42)
[2024-05-04] MEDS: ZOSYN IV (21:43)
[2024-05-04] MEDS: FARXIGA PO (21:43)
[2024-05-04 21:46] LABS: Chloride 105 mmol/L (98-107)
[2024-05-04] MEDS: HEPARIN 5000 UNITS SC (21:58)
[2024-05-05] VITALS (26 sets, daily range): BP systolic 122–160; BP diastolic 53–96; PULSE 74; O2SAT 98
[2024-05-05] MEDS: TYLENOL 650 MG PO (01:46)
[2024-05-05] MEDS: MELATONIN 5 MG PO (02:09)
[2024-05-05] MEDS: ZOSYN 50 IV ×4 (04:39→21:25)
[2024-05-05 04:52] LABS: % Basophils 0.3 % (0-2); % Eosinophils 0.7 % (0-6); % Lymphocytes 6.9 % (20.5-51.1); % Monocytes 7.4 % (1.7-9.3); % Neutrophils 81.7 % (42.2-75.2); Absolute Basophils 0.1 10^3/uL (0-0.2); Absolute Eosinophils 0.1 10^3/uL (0-0.7); Absolute Immature Granulocytes 0.5 10^3/uL (0-0.05); Absolute Lymphocytes 1.2 10^3/uL (1.2-3.4); Absolute Monocytes 1.3 10^3/uL (0.1-0.6); Absolute Neutrophils 14.4 10^3/uL (1.4-6.5); Hematocrit 33.7 % (39.0-52.0); Hemoglobin 11.3 g/dL (13.0-18.0); Mean Corp Hgb Conc. 33.5 g/dL (33.0-37.0); Mean Corpuscular Hgb 28.9 pg (27.0-31.0); Mean Corpuscular Volume 86.2 fL (80.0-94.0); Mean Platelet Volume 9.2 fL (7.4-10.4); Nucleated Red Blood Cells % 0 % (-); Platelet Count 266 10^3/uL (130-400); Red Blood Cell Count 3.91 10^6/uL (4.70-6.10); White Blood Cell Count 17.7 10^3/uL (4.8-10.8)
[2024-05-05 04:58] LABS: INR 1.32; PT 16.2 Sec (11.4-14.6)
[2024-05-05 04:59] LABS: APTT 34.3 Sec (23.4-35.0)
[2024-05-05 05:15] LABS: Blood Urea Nitrogen 18 mg/dl (9-20); Calcium 7.8 mg/dl (8.4-10.2); Carbon Dioxide 22 mmol/L (22-30); Chloride 106 mmol/L (98-107); Estimated Creatinine Clearance 110 ml/min; Glucose 53 mg/dl (70-99); Potassium 4.5 mmol/L (3.5-5.1); Sodium 135 mmol/L (135-145); eGFR > 60.00
--- NOTE | 2024-05-05 05:30 | PTCARENOTE ---
blood sugar 53. pt given OJ and peanut butter on crackers.
[2024-05-05] MEDS: DEXTROSE 50% SYRINGE 12.5 GRAMS IV (05:55)
[2024-05-05] MEDS: VANCOCIN 275 MG IV ×2 (05:58→17:40)
[2024-05-05 06:01] LABS: Glucose - Point of Care 60 mg/dl (70-99)
[2024-05-05 06:31] LABS: Glucose - Point of Care 95 mg/dl (70-99)
[2024-05-05] MEDS: NOVOLOG FLEXPEN-LOW RESISTANCE SC ×3 (07:30→17:01)
--- NOTE | 2024-05-05 07:56 | W.PN.VS ---
Addendum entered and electronically signed by Medardo Frey III, MD 05/05/24 09:45:
This patient was seen and examined with LEATHA Isidro. I agree with the history and physical exam as well as the assessment and plan.
Signed:
Medardo Frey III, MD
[facility] Surgery
[phone] (xamg)
Original Note:
Today's Communication / Plan
-
Seen and assessed with Dr. Frey
Assessment/Plan
-
Assessment: POD 1 Right lower extremity above-knee popliteal artery to peroneal artery using ipsilateral non-reversed great saphenous vein
Plan:
DC A-line
DC Tk
DC IV fluids
Out of bed to chair after lunch
Increase diet
Continue local wound care
Subjective Data
-
Date of Service: May 05, 2024
Patient seen at bedside this a.m. with Dr. Frey. No events overnight. Patient states he feels well, no complaints. No gtts this a.m.
Objective Data
-
Vital Signs
Temp Pulse Resp BP Pulse Ox
98.1 F 72 14 122/53 99
05/05/24 07:52 05/05/24 05:30 05/05/24 05:30 05/05/24 05:00 05/05/24 04:15
Intake and Output
05/04/24 05/05/24 05/06/24
06:59 06:59 06:59
Intake Total 1200 / 1200 640 / 720 80 / 80
Output Total 1150 / 1150 1185 / 1220 35 / 35
Balance 50 / 50 -545 / -500 45 / 45
Intake:
Oral fluids 1200 / 1200
IV fluids (Total) 640 / 720 80 / 80
nss 640 / 720 80 / 80
Output:
Drain Output (Total)
Right Leg [place]
Urine, Frey 660 / 660
Urine, Voided 1150 / 1150 525 / 525
Other:
Number of approximated MODERATE 2
amounts of urine
Lab Results
05/05/24 04:26
05/05/24 04:26
Calcium 7.8 mg/dl (8.4-10.2) L 05/05/24 04:26
Total Bilirubin 0.4 mg/dl (0.2-1.3) 04/29/24 06:54
AST 25 U/L (17-59) 04/29/24 06:54
ALT 27 U/L (0-50) 04/29/24 06:54
Alkaline Phosphatase 117 U/L (38-126) 04/29/24 06:54
Total Protein 6.0 g/dl (6.3-8.2) L 04/29/24 06:54
Albumin 3.4 g/dl (3.5-5.0) L 04/29/24 06:54
Physical Exam
-
No apparent distress, resting bed comfortably
No tachycardia
No dyspnea on room air
ABD flat, nontender, nondistended
Left groin puncture site CDI
Right leg surgical incisions all with Aquacel. All clean, dry, intact, no drainage noted
Right foot warm, pink
PT Doppler signal present
--- NOTE | 2024-05-05 08:00 | PTCARENOTE ---
Received pt @ change of shift. AAOx3, denies pain. Q1H neurovascular checks maintained- see flow sheet. SB-SR on monitor. +doppler pedal pulses. SpO2 98% on 2LNC. +BS, abd soft/round; tolerating diet. Frey in place draining clear/yellow
urine. R groin/thigh aquacell c/d/i. R LE EDI drain w ser/sang fluid. Remains bedrest per orders. # 20 R FA w NSS @ 80mL/hr. L rad A-line transduced, calibrated and monitored; all ports patent and secured; correlates w cuff pressures. Instructed
on how to report care concerns and call garcia placed w in reach.
[2024-05-05] MEDS: THERAGRAN 1 TABLET PO (08:44)
[2024-05-05] MEDS: FARXIGA 5 MG PO (08:44)
[2024-05-05] MEDS: HEPARIN 5000 UNITS SC ×2 (08:44→17:02)
[2024-05-05] MEDS: LOW STRENGTH ASPIRIN 81 MG PO (08:44)
[2024-05-05] MEDS: COLACE PO ×3 (08:44→19:43)
[2024-05-05] MEDS: OCUVITE SOFTGEL 2 CAP PO (08:44)
--- NOTE | 2024-05-05 08:44 | W.PN.ID1 ---
Date of Service
Date of Service: May 05, 2024
Today's Communication
- continue vancomycin and zoysn at this time - plan for eventual switch to oral antibiotics
- follow clinically
Assessment / Plan
Diabetic Foot Infection
Subacute Right Heel Wound
S/p Right lower extremity above-knee popliteal artery to peroneal artery 05/04
PAD/CAD
History of poor wound healing
- wound cultures - ESBL E coli and Diptheroid
- QTc 435
- s/p revascularization
- red man not an allergy - resolved with running vancomycin slowly
- continue vancomycin and zoysn at this time - plan for eventual switch to oral antibiotics
- follow clinically
Chief Complaint
-: Other (diabetic foot infection)
Subjective / Review of Systems
afebrile
BP stable off of pressors
s/p above knee pop:peronal artery bypass - uncomplicated
no complaints
red man resolved with slower infusion - not an allergy
Vital Signs / Physical Exam
Vital Signs
Vital Signs
Temp Pulse Resp BP Pulse Ox
98.1 F 72 14 122/53 99
05/05/24 07:52 05/05/24 05:30 05/05/24 05:30 05/05/24 05:00 05/05/24 04:15
Physical Exam
Constitutional: No Acute Distress
Cardiovascular: Regular Rate and S1/S2; Negative Murmur or Rub
Pulmonary: Clear and Symmetric; Negative Wheezes or Rales
Gastrointestinal: Soft, Non Tender, Non Distended and Normal Bowel Sounds
Skin: Warm and Dry; Negative Rash or Jaundice
Wound: Other (dressing clean, dry, intact)
Objective Data
Lab Data
Lab Results
05/05/24 04:26
05/05/24 04:26
PT 16.2 Sec (11.4-14.6) H 05/05/24 04:26
INR 1.32 05/05/24 04:26
APTT 34.3 Sec (23.4-35.0) 05/05/24 04:26
Estimated Creat Clear 110 ml/min 05/05/24 04:26
Total Bilirubin 0.4 mg/dl (0.2-1.3) 04/29/24 06:54
AST 25 U/L (17-59) 04/29/24 06:54
ALT 27 U/L (0-50) 04/29/24 06:54
Alkaline Phosphatase 117 U/L (38-126) 04/29/24 06:54
Most recent labs reviewed.
Micro Results:
04/28/24 19:49 Wound Culture - Final
Heel - Right Escherichia coli - ESBL
Gram Stain - Final
04/28/24 22:49 MRSA Screen - Final
Nose No Methicillin Resistant Staphylococcus aureus isolated.
--- NOTE | 2024-05-05 08:56 | CON.INTV ---
Consultation
Consultation Request
Date/Time Consultation Requested: 05/04/2024 - 1600
Date/Time Consultation Performed: 05/05/2024 - 0850
Requesting Provider: LEATHA Isidro
Performing Provider: Aydin Mistry MD
Reason for Consultation: post-op bypass
Medical History
-
Chief Complaint: Suspected right lower extremity heel infection
History of Present Illness:
79-year-old male former tobacco smoker with a past medical history of DM type II, PAD, nonhealing diabetic foot ulcer (right lower extremity), hypercholesterolemia, history of right foot cellulitis and diabetic neuropathy who presents from
psychotherapist with right heel wound with suspected infection. Patient was getting Augmentin X 2 weeks with no improvement so was sent here to the hospital for further evaluation. In the ER patient afebrile to 98 �F, pulse rate 92, breathing at 18
breaths/min, BP 160/79 and saturating 98% on room air. Initial labs showed leukocytosis to 16.3, glucose 159, and right heel wound culture obtained which later showed ESBL E. coli. Ceftriaxone was started and patient admitted to the hospitalist
service. Podiatry continue tube follow along. Right lower extremity MRI showed focal small soft tissue defect involving the superficial plantar soft tissues inferior to the calcaneus with no evidence to suggest abscess or osteomyelitis. Vascular
surgery consulted and RLE angiogram performed on 05/01 showed diffusely diseased distal popliteal artery with severe in-stent restenosis and severe PT disease. Given the extent of disease, revascularization strategy for limb preservation discussed
and patient agreed to RLE bypass. On 05/04/2024, patient underwent right lower extremity above�knee popliteal artery to peroneal artery bypass. There were no complications, EBL was 150 cc and he was transferred to the ICU postoperatively for
further care. Critical care services consulted for additional recommendations/management.
Pt seen and evaluated this AM. Signals positive from right PT and DP. Pain is controlled. He feels well although he is tired. He is currently on NS 0.9% at 80 cc/hr. Currently on 3 L/min nasal cannula and denies shortness of breath or chest
pain. SpO2 98%.
PMHx: DM type II, PAD, nonhealing diabetic foot ulcer (RLE), hypercholesterolemia, history of right foot cellulitis, history of osteomyelitis, hypertension, diabetic neuropathy
PSHx: Right lower extremity stent placement, appendectomy, I&D of foot, ruptured hematoma surgery, right second and third toe amputations, left above�knee popliteal artery�dorsal pedal artery bypass
Past Medical History
Past Medical History: Other (Above as per HPI)
Past Surgical History: Other (Above as per HPI)
Social History
Tobacco: Former Smoker
Alcohol: Occasional
Drug: None
Family History
Family History: CAD (Father)
Allergies / Home Medications
Allergies
Allergy/AdvReac Type Severity Reaction Status Date / Time
No Known Allergies Allergy Verified 04/24/24 14:33
Home Medications
�Medication �Instructions �Recorded �Confirmed �Last Taken �Type
repaglinide 1 mg tablet 1 mg PO MEALS Diabetes 08/15/21 04/28/24 04/28/24 History
rosuvastatin 20 mg tablet 20 mg PO QPM High cholesterol 08/15/21 04/28/24 04/27/24 History
vit C 250 mg-vit E 90 mg-zinc 40 2 ea PO DAILY Eye condition 10/18/21 04/28/24 04/28/24 History
mg-copper 1 [id number]
capsule (PreserVision AREDS-2)
coenzyme Q10 100 mg capsule 100 mg PO QPM Supplement ##0 10/20/21 04/28/24 04/27/24 History
(CoQ-10)
rivaroxaban 2.5 mg tablet (Xarelto) 2.5 mg PO BID Blood clot 10/20/21 04/28/24 04/28/24 Rx
prevention/tx #120 tabs
dapagliflozin propaned 5 1 tab PO BIDWMEAL Diabetes 10/23/22 04/28/24 04/28/24 History
mg-metformin ER 1,000 mg tablet,
ext rel 24hr (Xigduo XR)
therapeutic multivitamin 1 tab PO DAILY Supplement 11/12/22 04/28/24 04/28/24 History
insulin glargine U-300 conc 300 20 unit SC DAILY Diabetes 04/24/24 04/28/24 04/28/24 History
unit/mL (1.5 mL) subcutaneous pen
(Toujeo SoloStar U-300 Insulin)
lisinopril 20 mg tablet 20 mg PO DAILYPRN PRN SBP >140 04/24/24 04/28/24 Unknown History
semaglutide 1 mg/dose (4 mg/3 mL) 1 mg SC MO Diabetes 04/24/24 04/28/24 04/27/24 History
subcutaneous pen injector (Ozempic)
Review of Systems
-
History Source: Patient
All other systems: Negative unless noted
Vitals / Labs / Diagnostic Testing
Vital Signs
Temp Pulse Resp BP Pulse Ox
98.1 F 72 14 122/53 99
05/05/24 07:52 05/05/24 05:30 05/05/24 05:30 05/05/24 05:00 05/05/24 04:15
Lab Data
05/05/24 04:26
05/05/24 04:26
Laboratory Results
05/04/24 05/05/24
20:28 04:26
PT 17.2 H 16.2 H
INR 1.42 1.32
APTT 121.1 H 34.3
Diagnostic Testing:
Physical Exam
-
HEENT: Normocephalic and Anicteric
Cardiovascular: S1/S2, Murmur (LONNIE (upper precordium)) and Peripheral Edema (Negative)
Respiratory: Wheeze (Negative), Rales (Negative) and Rhonchi (Negative)
GI: Soft, Non Distended, Non Tender and Normal Bowel Sounds
Neurology: Awake, Alert and Tremors (Negative)
Skin: Warm, Dry and Other (Amputations of multiple toes on right foot)
General: Respiratory Distress (Negative), Comfortable, Fever (Negative) and Chills (Negative)
Assessment
-
Assessment: 79-year-old male former tobacco smoker with a past medical history of DM type II, PAD, nonhealing diabetic foot ulcer (right lower extremity), hypercholesterolemia, history of right foot cellulitis and diabetic neuropathy who presents
from psychotherapist with right heel wound with suspected infection. Patient was getting Augmentin X 2 weeks with no improvement so was sent here to the hospital for further evaluation. In the ER patient afebrile to 98 �F, pulse rate 92, breathing at
18 breaths/min, BP 160/79 and saturating 98% on room air. Initial labs showed leukocytosis to 16.3, glucose 159, and right heel wound culture obtained which later showed ESBL E. coli. Ceftriaxone was started and patient admitted to the hospitalist
service. Podiatry continue tube follow along. Right lower extremity MRI showed focal small soft tissue defect involving the superficial plantar soft tissues inferior to the calcaneus with no evidence to suggest abscess or osteomyelitis. Vascular
surgery consulted and RLE angiogram performed on 05/01 showed diffusely diseased distal popliteal artery with severe in-stent restenosis and severe PT disease. Given the extent of disease, revascularization strategy for limb preservation discussed
and patient agreed to RLE bypass. On 05/04/2024, patient underwent right lower extremity above�knee popliteal artery to peroneal artery bypass. There were no complications, EBL was 150 cc and he was transferred to the ICU postoperatively for
further care. Critical care services consulted for additional recommendations/management.
Chronic conditions [employer]: DM type II, PAD, nonhealing diabetic foot ulcer (RLE), hypercholesterolemia, history of right foot cellulitis, history of osteomyelitis, hypertension, diabetic neuropathy
Impression:
#Right lower extremity critical limb ischemia s/p above�knee popliteal artery�peroneal artery bypass using ipsilateral non�reversed GSV (POD #1)
#RLE diabetic foot infection with wound culture showing ESBL E�coli + diphtheroid
#Acute respiratory failure with hypoxia on supplemental oxygen, likely due to sepsis with acute organ dysfunction
#Leukocytosis -likely due to sepsis without shock due to RLE nonhealing diabetic foot wound
#Anemia
#Hypoglycemia (glucose 53 this AM on chemistry lab)
#History of right-sided nonhealing diabetic ulcer
#PAD
#DM type II with neuropathy (uncontrolled with HbA1C: 7.9 from 04/29/2024)
#Hypercholesterolemia
Plan:
Postoperative surgical intensive care unit monitoring
Supplemental oxygen and wean as tolerated to keep SpO2 >90-94%
prn nebulized bronchodilators
Incentive spirometry encouraged
Aspiration precautions
ABx as per ID - currently on IV vancomycin + Zosyn (both started 04/28)
Pain control
Neuro and vascular checks per protocol
Maintain MAP>70-100mmHg
Podiatry on board � recommendations appreciated
Replete electrolytes with K>4, Mg>2
Maintain BG 140-180mg/dL with lantus but avoid hypoglycemia
Will give lantus 8-10 units HS tonight as his BG this AM was 53
Vascular surgery following-correspondence and operative notes reviewed
DVT prophylaxis: HSQ
Early nutrition
Early mobilization
Critical care statement: A total of 44 minutes of critical care time was provided for this patient today. This includes management of unstable vital signs, evaluation of the patient at bedside, reviewing the patient's pertinent medical records
including radiographs, microbiology, laboratory evaluations, and discussion with primary team, consultants, pharmacy, nutrition, physical therapy, case management, charge nurse, critical care nursing, and respiratory therapy.
Data:
RLE MRI 04/29/2024:
Focal small soft tissue defect involving the superficial plantar soft tissues, inferior to the calcaneus. No evidence of collection to suggest abscess. No evidence for osteo myelitis.
Intermediate T1-weighted signal within the subcutaneous soft tissues off the plantar aspect of the posterior and inferior calcaneus, without significant enhancement postcontrast. This could represent soft tissue callus and/or relatively
devascularize soft tissues. No evidence of collection. No evidence for osteomyelitis of the calcaneus.
Numerous prominent tortuous enhancing varicose veins within the medial soft tissues of the right lower leg and ankle
[2024-05-05] MEDS: DAKIN'S SOLUTION 0.125% 1/4 STRENGTH 10 ML TOPICAL (09:00)
--- NOTE | 2024-05-05 09:00 | W.PN.POD ---
Today's Communication
Today's Communication
Wound cleansed and re evaluated. Will start enzymatic debridement to the heel w/santyl and pending response consider sharp debridement in the near future.
As result of neuropathy this may be able to be done at bedside when warranted.
Will follow closely while here.
Assessment / Plan
-
DM2 with PAD- POD #1 S/P Right lower extremity above-knee popliteal artery to peroneal artery using ipsilateral non-reversed great saphenous vein
DM2 with DPN and LOPS
Gangrene to the right medial heel w cellultis- Appreciate ID input
Subjective
Chief Complaint
gangrene right heel/cellultis/PAD
Subjective
Feeling ok S/P RLE bypass graft-POD #1.
Objective
Temp Pulse Resp BP Pulse Ox
98.1 F 72 14 122/53 99
05/05/24 07:52 05/05/24 05:30 05/05/24 05:30 05/05/24 05:00 05/05/24 04:15
05/05/24 04:26
05/05/24 04:26
Vital Signs and Lab results were reviewed.
Review of Systems
Review of Systems
Review of Systems: No Fever, No Chills, No Headache, No Nausea and No Diarrhea
Physical Exam
Physical Exam
General: No Apparent Distress, Comfortable and Conversant
Musculoskeletal: Edema, Right Lower Extrem (s/p revasc rle)
Skin: Warm, Dry and Ischemic Ulcer (right heel- boggy centrally-dry necrosis medially. decreased erythema.no purulence expressed)
Neuro: AO x 3 and Protective Sensation Absent
Vascular: Capillary Refill Intact and Skin Temperature Warm to Warm
Dorsalis Pedis: Intact
Posterior Tibialis: Intact
--- NOTE | 2024-05-05 09:17 | W.PN.POD ---
Today's Communication
Today's Communication
Patient verbally consented to bedside debridement of the right heel. He is completely anesthetic secondary to peripheral neuropathy. The wound was prepped and cleansed with dakins solution. Using dissecting scissors the necrotic tissue was sharply
debrided an liquified fat was sharply removed from plantar fat over the plantar fascia, this was then traced medially and necrotic tissue was again sharply debrided. The total size of the wound 3.5cm long x 10 cm wide x approx 1 cm deep. Scant
bleeding < 5cc was noted from the medial aspect of the wound,minimal granulation noted to the central wound. No further purulence was encountered. The wound was irrigated with 0.25% dakins solution, (once available from pharmacy) the void filled
with santyl ointment and a NSS wet fluffed 4x4 , ABD and wrapped with Kerlix. Will initiate wound vac w/ santyl ointment and re evaluate 05/07/24
Assessment / Plan
-
1-DM2 with PAD- POD #2 S/P Right lower extremity above-knee popliteal artery to peroneal artery using ipsilateral non-reversed great saphenous vein
2-DM2 with DPN and LOPS
3-Gangrene to the right medial heel w cellultis- Appreciate ID input
Subjective
Chief Complaint
right heel cellulitis and gangrene
Subjective
Denies pain right foot- seen sitting up at bedside
Objective
Temp Pulse Resp BP Pulse Ox
98.1 F 72 14 122/53 99
05/05/24 07:52 05/05/24 05:30 05/05/24 05:30 05/05/24 05:00 05/05/24 04:15
05/05/24 04:26
05/05/24 04:26
Vital Signs and Lab results were reviewed.
Review of Systems
Review of Systems
Review of Systems: No Fever, No Chills, No Headache, No Nausea and No Diarrhea
Physical Exam
Physical Exam
General: No Apparent Distress and Conversant
Musculoskeletal: Edema, Right Lower Extrem (mild)
Skin: Necrotic and Wound (with purulent drainage expressed medially, centrally and laterally to wound. )
Neuro: AO x 3 and Protective Sensation Absent
Vascular: Capillary Refill Intact, Pedal Hair Absent and Skin Temperature Warm to Warm
Dorsalis Pedis: Diminished (palpable)
Posterior Tibialis: Diminished (palpable)
--- NOTE | 2024-05-05 09:59 | PHA.VAN.FU ---
Vancomycin Assessment / Plan
- Assessment
Renal Function: Stable
WBC's are: Trending Down
In the past 24 hrs, patient has been: Afebrile
Concomitant Antimicrobials: piperacillin/tazobactam
- Dosing Plan
Continue: Vanc 1250mg Q12H infused over 2 hours
- Monitoring Plan
No level(s) ordered at this time: consider repeat levels later this week to confirm extrapolated PK
- Follow Up
Pharmacy will continue to follow.
Vancomycin Follow UP
- -
Patient Age: 79
Patient Sex: Male
Vancomycin Day #: 8
Indication: Bone And Joint
Requesting Provider: Dr. Stiles / Chitra
Pertinent Antimicrobial Allergies:
NKDA
Height / Weight:
Height 5 ft 11 in
Actual Weight 90.917 kg
IBW in k.3
Adjusted BW in k.5
Pertinent Past Medical History: DM 2, PVD
- Vital Signs / Lab Results
Temp Pulse Resp BP Pulse Ox
98.1 F 73 17 137/61 97
05/05/24 07:52 05/05/24 09:45 05/05/24 09:45 05/05/24 09:00 05/05/24 09:45
Lab Results - Hematology
05/04/24 05/04/24 05/05/24
05:42 20:29 04:26
WBC 15.2 H 20.2 H 17.7 H
Lab Results - Chemistry
05/03/24 05/04/24 05/04/24
15:50 05:42 20:29
BUN 23 H 22 H 19
Creatinine 0.8 0.8 0.6 L
Estimated Creat Clear 82 82 110
05/05/24
04:26
BUN 18
Creatinine 0.5 L
Estimated Creat Clear 110
Therapeutic Drug Monitoring
Vancomycin Peak 28.3 ug/ml (18-26) H 05/02/24 20:34
Vancomycin Trough 16.4 ug/ml (5-20) 05/04/24 05:42
[2024-05-05] MEDS: DESENEX/MITRAZOL/ZEASORB 1 APPLIC TOPICAL ×2 (10:27→19:43)
[2024-05-05] MEDS: LANTUS SC (10:28)
[2024-05-05 11:28] LABS: Glucose - Point of Care 103 mg/dl (70-99)
--- NOTE | 2024-05-05 13:22 | PTCARENOTE ---
IVF d/c'd per orders. L rad A-line d/c'd; pressure held until bleeding ceased; no hematoma noted; clean dressing applied. Frey removed and pt. DTV @ 1545, urinal placed w in reach. R heel wound care completed w podiatry, Dr. Erickson, @ bedside.
Bedrest orders lifted and pt able to ambulate w protective shoe. PT/OT assisted pt. w RW into chair w protective shoe in place @ approx 1030. Legs elevated in chair s/p transfer. Remains OOB @ this time. Call garcia placed back w in reach.
--- NOTE | 2024-05-05 14:27 | W.PN.HOSP.TC ---
Today's Communication/Plan
-
continue ICU level of care with q1h vascular checks
continue IV abx
Assessment / Plan
Assessment / Plan
Assessment:
Right heel ulcer, possible osteomyelitis
- MRI: Focal small soft tissue defect involving the superficial plantar soft tissues, inferior to the calcaneus. No evidence of collection to suggest abscess. No evidence for osteo myelitis. Intermediate T1-weighted signal within the subcutaneous
soft tissues off the plantar aspect of the posterior and inferior calcaneus, without significant enhancement postcontrast. This could represent soft tissue callus and/or relatively devascularize soft tissues. No evidence of collection. No evidence
for osteomyelitis of the calcaneus. Numerous prominent tortuous enhancing varicose veins within the medial soft tissues of the right lower leg and ankle.
- continue Vanco/Zosyn per ID. ESBL in culture
- s/p Right Distal Popliteal - Peroneal artery bypass (SVG) on 05/04
- continue wound care
- Podiatry and Vascular following
- continue q1h vascular checks
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
- improved with slower infusion
History of osteomyelitis status post amputation of left third toe, right second/third toes
Peripheral vascular disease status post bypass of left lower extremity/stent of right lower extremity
Type 2 diabetes
- continue Lantus 8 units until PO intake improves
- Hold repaglinide, Metformin, dapagliflozin
- insulin sliding scale
Diabetic neuropathy
Hyperlipidemia
- continue statin
History of subdural hematoma
Essential hypertension
- continue lisinopril
DVT ppx: Heparin
Code: Full
Total Critical Care Time 38 minutes. I was immediately available to the patient and staff. I personally examined, reviewed labs, diagnostic images/reports, interpretations, treatment plans, discussed patient care with other providers and family
or caregivers (if patient is unable to make decisions), entered orders as appropriate and documented the medical record.
Anticipated Discharge: > 48 hours
Subjective/Interval History
-
Date of Service: May 05, 2024
feels well post-bypass
Objective Data
-
Labs:
Laboratory Results
05/05/24
04:26
WBC 17.7 H
Hgb 11.3 L
Hct 33.7 L
Plt Count 266
PT 16.2 H
INR 1.32
APTT 34.3
Sodium 135
Potassium 4.5
Chloride 106
Carbon Dioxide 22
BUN 18
Creatinine 0.5 L
Glucose 53 L*
Calcium 7.8 L
Vital Signs:
Vital Signs
Temp Pulse Resp BP Pulse Ox
99.1 F 82 18 143/80 95
05/05/24 12:36 05/05/24 13:00 05/05/24 13:00 05/05/24 13:00 05/05/24 12:45
I&O
05/04/24 05/05/24 05/06/24
06:59 06:59 06:59
Intake Total 1200 / 1200 640 / 720 1210 / 1210
Output Total 1150 / 1150 1185 / 1320 360 / 360
Balance 50 / 50 -545 / -600 850 / 850
Physical Exam
-
General: No Apparent Distress
HEENT: Normocephalic and Atraumatic
Respiratory: Negative Wheezes
Cardiac: Regular Rhythm and S1/S2
GI: Soft
Genito-urinary: No Costovertebral Tender
Neuro: AO x 3
Psych: Calm
Data Reviewed
-
Critical Care Time (in minutes): 38
Labs: Labs Reviewed by me
[2024-05-05 17:12] LABS: Glucose - Point of Care 116 mg/dl (70-99)
[2024-05-05] MEDS: CRESTOR 20 MG PO (17:40)
--- NOTE | 2024-05-05 20:39 | PTCARENOTE ---
Received patient AAOx3, denying pain, following commands. Mild sensation loss at baseline in bilateral lower extremities. Bilateral pedal pulses present with doppler, +1 RLE and trace LLE edema. Q1H neurovascular checks until 2200. Normal sinus 70s,
BP stable 140s/70s, normothermic. 95% on room air, lung sounds diminished throughout. Positive bowel sounds, abdomen soft, round, nontender. No void yet this shift. Right groin aquacell CDI. Right EDI drain putting out serosanguineous fluid. Dressing
on right heel CDI. PIVs patent, capped, WNL. Call garcia within reach.
[2024-05-05] MEDS: LANTUS 0.08 UNITS SC (21:26)
[2024-05-05 22:04] LABS: Glucose - Point of Care 107 mg/dl (70-99)
[2024-05-06] VITALS (19 sets, daily range): BP systolic 131–159; BP diastolic 59–87; PULSE 73–76; BMI 28.9
[2024-05-06] MEDS: HEPARIN 5000 UNITS SC ×4 (00:23→23:10)
[2024-05-06] MEDS: MELATONIN 5 MG PO ×2 (00:28→23:27)
--- NOTE | 2024-05-06 00:30 | PTCARENOTE ---
Neurovascular checks now Q4. patient requested melatonin for sleep. Otherwise patient assessment unchanged from previous, call garcia within reach.
--- NOTE | 2024-05-06 04:10 | PTCARENOTE ---
Patient desaturating to 50s and coming back up, sleeping with mouth open and does not appear to be in respiratory distress. Patient denies having sleep apnea or using a CPAP at home, denies feeling short of breath. RT notified, patient repositioned
and 5 liters nasal cannula applied. Patient now saturating 100%. Call garcia within reach.
[2024-05-06] MEDS: ZOSYN 50 IV ×2 (04:55→10:31)
[2024-05-06] MEDS: VANCOCIN 275 MG IV ×2 (06:01→18:15)
[2024-05-06 06:05] LABS: % Basophils 0.4 % (0-2); % Eosinophils 0.8 % (0-6); % Immature Granulocytes 2.9 % (0-0.5); % Monocytes 11.7 % (1.7-9.3); % Neutrophils 73.2 % (42.2-75.2); Absolute Basophils 0.1 10^3/uL (0-0.2); Absolute Eosinophils 0.1 10^3/uL (0-0.7); Absolute Immature Granulocytes 0.5 10^3/uL (0-0.05); Absolute Lymphocytes 1.7 10^3/uL (1.2-3.4); Absolute Monocytes 1.8 10^3/uL (0.1-0.6); Absolute Neutrophils 11.6 10^3/uL (1.4-6.5); Hematocrit 31.4 % (39.0-52.0); Hemoglobin 10.3 g/dL (13.0-18.0); Mean Corp Hgb Conc. 32.8 g/dL (33.0-37.0); Mean Corpuscular Hgb 27.8 pg (27.0-31.0); Mean Corpuscular Volume 84.9 fL (80.0-94.0); Nucleated Red Blood Cells % 0 % (-); Platelet Count 281 10^3/uL (130-400); White Blood Cell Count 15.8 10^3/uL (4.8-10.8)
[2024-05-06 06:36] LABS: Blood Urea Nitrogen 16 mg/dl (9-20); Calcium 8.1 mg/dl (8.4-10.2); Carbon Dioxide 24 mmol/L (22-30); Chloride 102 mmol/L (98-107); Estimated Creatinine Clearance 94 ml/min; Glucose 53 mg/dl (70-99); Potassium 4.4 mmol/L (3.5-5.1); Sodium 134 mmol/L (135-145); eGFR > 60.00
[2024-05-06 07:12] LABS: Glucose - Point of Care 75 mg/dl (70-99)
[2024-05-06] MEDS: NOVOLOG FLEXPEN-LOW RESISTANCE SC (08:07)
[2024-05-06] MEDS: COLACE PO ×2 (08:07→20:00)
[2024-05-06] MEDS: SANTYL OINTMENT 1 APPLIC TOPICAL (08:08)
[2024-05-06] MEDS: DAKIN'S SOLUTION 0.125% 1/4 STRENGTH 473 ML TOPICAL (08:08)
[2024-05-06] MEDS: THERAGRAN 1 TABLET PO (08:09)
[2024-05-06] MEDS: LOW STRENGTH ASPIRIN 81 MG PO (08:09)
[2024-05-06] MEDS: DESENEX/MITRAZOL/ZEASORB 1 APPLIC TOPICAL ×2 (08:09→20:01)
[2024-05-06] MEDS: OCUVITE SOFTGEL 2 CAP PO (08:09)
[2024-05-06 08:18] LABS: Glucose - Point of Care 79 mg/dl (70-99)
--- NOTE | 2024-05-06 08:40 | PHA.VAN.FU ---
Vancomycin Assessment / Plan
- Assessment
Renal Function: Stable
WBC's are: Trending Down
In the past 24 hrs, patient has been: Afebrile
Concomitant Antimicrobials: piperacillin/tazobactam
- Dosing Plan
Continue: Vanc 1250mg Q12H infused over 2 hours
- Monitoring Plan
Peak Level: 05/06 21:30
Trough Level: 05/07 05:30
Monitoring Comments: levels to be drawn after 16th maintenance dose
- Follow Up
Pharmacy will continue to follow.
Vancomycin Follow UP
- -
Patient Age: 79
Patient Sex: Male
Vancomycin Day #: 9
Indication: Bone And Joint
Requesting Provider: Dr. Stiles / Chitra
Pertinent Antimicrobial Allergies:
NKDA
Height / Weight:
Height 5 ft 11 in
Actual Weight 94 kg
IBW in k.3
Adjusted BW in k.5
Pertinent Past Medical History: DM 2, PVD
- Vital Signs / Lab Results
Temp Pulse Resp BP Pulse Ox
98.3 F 67 19 145/66 100
05/06/24 07:52 05/06/24 05:52 05/06/24 05:52 05/06/24 05:52 05/06/24 05:52
Lab Results - Hematology
05/04/24 05/04/24 05/05/24
05:42 20:29 04:26
WBC 15.2 H 20.2 H 17.7 H
05/06/24
05:52
WBC 15.8 H
Lab Results - Chemistry
05/03/24 05/04/24 05/04/24
15:50 05:42 20:29
BUN 23 H 22 H 19
Creatinine 0.8 0.8 0.6 L
Estimated Creat Clear 82 82 110
05/05/24 05/06/24
04:26 05:52
BUN 18 16
Creatinine 0.5 L 0.7
Estimated Creat Clear 110 94
Therapeutic Drug Monitoring
Vancomycin Peak 28.3 ug/ml (18-26) H 05/02/24 20:34
Vancomycin Trough 16.4 ug/ml (5-20) 05/04/24 05:42
--- NOTE | 2024-05-06 08:55 | PTCARENOTE ---
Assumed care of pt at 0715 following shift report. Pt awake and resting quietly in bed watching TV. Pt alerted RN to 'something dripping from my IV'. Infiltrate w/ associated edema noted to Lt arm at site of Vancomycin infusion. Vancomycin nearing
completion of infusion- Lt arm IV site removed and Vancomycin completed infusing via existing Rt forearm IV site. Physical assessment completed. Dressing to Rt heel changed per ordered instructions. Accucheck completed per hypoglycemic protocol. Pt
assisted w/ setting up breakfast tray. Dr Frey in to see pt and removed post-op dressing to Rt groin/thigh and below Rt knee. EDI drain remains in place. IV team RN notified of Vancomycin extravasation and to come see pt.
--- NOTE | 2024-05-06 08:55 | W.PN.INTV ---
Today's Communication / Plan
Recommendations
Up OOB as tolerated
Wound care
Antibiotics per ID
NOX study tonight to eval for nocturnal hypoxia
Outpatient follow up to discuss SDB
Patient stable for downgrade out of ICU to telemetry - pulmonary service will briefly follow along
Assessment
-
Assessment: 79-year-old male former tobacco smoker with a past medical history of DM type II, PAD, nonhealing diabetic foot ulcer (right lower extremity), hypercholesterolemia, history of right foot cellulitis and diabetic neuropathy who presents
from back padder with right heel wound with suspected infection. Patient was getting Augmentin X 2 weeks with no improvement so was sent here to the hospital for further evaluation. In the ER patient afebrile to 98 �F, pulse rate 92, breathing at
18 breaths/min, BP 160/79 and saturating 98% on room air. Initial labs showed leukocytosis to 16.3, glucose 159, and right heel wound culture obtained which later showed ESBL E. coli. Ceftriaxone was started and patient admitted to the hospitalist
service. Podiatry continue tube follow along. Right lower extremity MRI showed focal small soft tissue defect involving the superficial plantar soft tissues inferior to the calcaneus with no evidence to suggest abscess or osteomyelitis. Vascular
surgery consulted and RLE angiogram performed on 05/01 showed diffusely diseased distal popliteal artery with severe in-stent restenosis and severe PT disease. Given the extent of disease, revascularization strategy for limb preservation discussed
and patient agreed to RLE bypass. On 05/04/2024, patient underwent right lower extremity above�knee popliteal artery to peroneal artery bypass. There were no complications, EBL was 150 cc and he was transferred to the ICU postoperatively for
further care. Critical care services consulted for additional recommendations/management.
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
Impression:
#Right lower extremity critical limb ischemia s/p above�knee popliteal artery�peroneal artery bypass using ipsilateral non�reversed GSV (POD #2)
#RLE diabetic foot infection with wound culture showing ESBL E�coli from 04/28/2024
#Acute respiratory failure with hypoxia on supplemental oxygen, likely due to sepsis with acute organ dysfunction
#Leukocytosis -likely due to sepsis without shock due to RLE nonhealing diabetic foot wound
#Nocturnal hypoxia - either artifact vs sleep apnea - pt denies EDS or witnessed apneic events, although sometimes snores; reports Hx of RYAN from >20 years ago
#Anemia
#Hypoglycemia (glucose 53 this AM on chemistry lab)
#History of right-sided nonhealing diabetic ulcer
#PAD
#DM type II with neuropathy (uncontrolled with HbA1C: 7.9 from 04/29/2024)
#Hypercholesterolemia
Plan:
Postoperative surgical intensive care unit monitoring
Supplemental oxygen and wean as tolerated to keep SpO2 >90-94%
prn nebulized bronchodilators
Incentive spirometry encouraged
Aspiration precautions
ABx as per ID - currently on Invanz + IV vancomycin s/p zosyn (started 04/28 - 05/06/2024)
Pain control
Neuro and vascular checks per protocol
Maintain MAP>70-100mmHg
Podiatry on board � recommendations appreciated
Replete electrolytes with K>4, Mg>2
Check NOX study tonight to assess for nocturnal hypoxia
Patient denies witnessed apneic events or excessive daytime sleepiness, although he does take daytime naps during the weekend on his off days and occasionally snores. He carries a history of sleep apnea from >20 years ago. If NOX study positive
then would start supplemental O2 and consider outpatient eval to discuss SDB
Maintain BG 140-180mg/dL with basal-bolus insulin dosing but avoid hypoglycemia
Vascular surgery following-correspondence and operative notes reviewed
DVT prophylaxis: HSQ
Early nutrition
Early mobilization
Patient stable for downgrade out of ICU to telemetry. Pulmonary service will briefly follow along. Outpatient follow-up will be arranged.
Total time spent today was 55 minutes for this encounter. Time includes reviewing laboratory test/imaging results, reviewing pertinent medical records, obtaining and reviewing medical history, performing an appropriate exam, ordering medications,
tests and procedures. Time also includes documentation of this encounter, coordinating patient care and communicating with other healthcare professionals. Total time does not include separately billed tests performed on this date of service.
Data:
RLE MRI 04/29/2024:
Focal small soft tissue defect involving the superficial plantar soft tissues, inferior to the calcaneus. No evidence of collection to suggest abscess. No evidence for osteo myelitis.
Intermediate T1-weighted signal within the subcutaneous soft tissues off the plantar aspect of the posterior and inferior calcaneus, without significant enhancement postcontrast. This could represent soft tissue callus and/or relatively
devascularize soft tissues. No evidence of collection. No evidence for osteomyelitis of the calcaneus.
Numerous prominent tortuous enhancing varicose veins within the medial soft tissues of the right lower leg and ankle
Subjective Dataa
Subjective Data
Date of Service:
Date of Service: May 06, 2024
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
Subjective:
Patient seen and evaluated this morning. Desaturated overnight apparently to the 50s. Patient asymptomatic, denies excessive daytime sleepiness, sometimes snores and denies witnessed apneic events. Patient's at bedside and she attest to
this. Patient apparently has a history of RYAN from over 20 years ago. He otherwise denies chest pain, abdominal pain, fevers or chills. CXR performed shows no acute disease of the chest.
Review of Systems
General: Other (Negative unless mentioned above)
Objective Data
Data Reviewed
Vital Signs / I&O / Oxygen:
Vital Signs
Temp Pulse Resp BP Pulse Ox
98.3 F 67 19 145/66 100
05/06/24 07:52 05/06/24 05:52 05/06/24 05:52 05/06/24 05:52 05/06/24 05:52
Intake and Output
05/05/24 05/06/24 05/07/24
06:59 06:59 06:59
Intake Total 640 / 720 2240 / 2240
Output Total 1185 / 1320 1775 / 1775
Balance -545 / -600 465 / 465
SaO2 100
Nasal Cannula flow liters per 2
minute
Physical Exam
General: Respiratory Distress (Negative), Comfortable and Chills (Negative)
HEENT: Normocephalic, Anicteric and Moist Mucous Membranes
Cardiovascular: S1-S2, Murmur (Upper precordium) and Peripheral Edema (Negative)
Respiratory: Clear, Wheeze (Negative), Crackles (Negative) and Rhonchi (Negative)
GI: Soft, Non Distended, Non Tender and Normal Bowel Sounds
Neurology: AO x 3 and Tremors (Negative)
Skin: Warm, Dry, Jaundice (Negative), Other (Bandage on right foot) and Other (Amputations of multiple toes on right foot)
Labs/Micro/Reports
Lab Data
05/06/24 05:52
05/06/24 05:52
--- NOTE | 2024-05-06 09:05 | VATNOTE ---
Called to assess vancomycin infiltrate that was discovered at about 0815. Large area of infiltrate noted with indistinct borders. No erythema noted. Pt complains of discomfort. Heat applied to site, MD notified, and Hylenex ordered.
--- NOTE | 2024-05-06 09:10 | W.PN.VS ---
Today's Communication / Plan
-
Seen and assessed with Dr. Frey
Assessment/Plan
-
Assessment: POD 2 right lower extremity above-knee popliteal artery to peroneal artery using ipsilateral non-reversed great saphenous vein
Plan:
Out of bed to chair/ambulate
Continue local wound care
Restart home Xarelto
Transfer to telemetry ([address] [place] [address]/[facility])
Subjective Data
-
Date of Service: May 06, 2024
Patient at bedside this a.m. with Dr. Frey. Patient doing well overall, sitting up in bed. No complaints at this time. No events overnight
Objective Data
-
Vital Signs
Temp Pulse Resp BP Pulse Ox
98.3 F 67 19 145/66 100
05/06/24 07:52 05/06/24 05:52 05/06/24 05:52 05/06/24 05:52 05/06/24 05:52
Intake and Output
05/05/24 05/06/24 05/07/24
06:59 06:59 06:59
Intake Total 640 / 720 2240 / 2240
Output Total 1185 / 1320 1775 / 1775
Balance -545 / -600 465 / 465
Intake:
Oral fluids 1200 / 1200
IV fluids (Total) 640 / 720 320 / 320
nss 640 / 720 320 / 320
IV piggybacks 720 / 720
Output:
Drain Output (Total) 75 / 75
Right Leg Roland-Carrasquillo 75 / 75
UrineTk 660 / 760 325 / 325
Urine, Voided 525 / 525 725 / 725
Straight cath output 650 / 650
Lab Results
05/06/24 05:52
05/06/24 05:52
Calcium 8.1 mg/dl (8.4-10.2) L 05/06/24 05:52
Total Bilirubin 0.4 mg/dl (0.2-1.3) 04/29/24 06:54
AST 25 U/L (17-59) 04/29/24 06:54
ALT 27 U/L (0-50) 04/29/24 06:54
Alkaline Phosphatase 117 U/L (38-126) 04/29/24 06:54
Total Protein 6.0 g/dl (6.3-8.2) L 04/29/24 06:54
Albumin 3.4 g/dl (3.5-5.0) L 04/29/24 06:54
Physical Exam
-
No apparent distress, resting bed comfortably
No tachycardia
No dyspnea on room air
ABD flat, nontender, nondistended
Left groin puncture site CDI
Right leg Aquacels removed, all staple sites clean, dry, intact. No drainage noted
Right foot warm, pink
PT Doppler signal present
[2024-05-06] MEDS: HYLENEX 150 UNITS SC ×2 (09:33→11:20)
--- NOTE | 2024-05-06 09:40 | VATNOTE ---
Hylenex administered per protocol at this time. Pt states pain has decreased at infiltration site. Will re-evaluate in 30-60 minutes per protocol.
--- NOTE | 2024-05-06 09:43 | W.PN.ID1 ---
Date of Service
Date of Service: May 06, 2024
Today's Communication
- patient at high risk for progression of infection to osteomyelitis, favor 6 week course of IV ertapenem and vancomycin 05/04-06/14
- when approaching dc will place picc
Assessment / Plan
Diabetic Foot Infection
Probable Osteomyelitis of the R heel
S/p Right lower extremity above-knee popliteal artery to peroneal artery 05/04
PAD/CAD
History of poor wound healing
- having issues with hypoglycemia and hypoglycemic unawareness - management per IM service
- wound cultures - ESBL E coli and Diptheroid
- QTc 435
- s/p revascularization; for serial debridements
- patient at high risk for progression of infection to osteomyelitis, favor 6 week course of IV ertapenem and vancomycin 05/04-06/14
- when approaching dc will place picc
- follow clinically
Chief Complaint
-: Other (diabetic foot infection)
Subjective / Review of Systems
afebrile
no complaints and no overnight events
reports not aware he was hypoglycemic - no nausea, dizziness, sweating, hunger etc
Vital Signs / Physical Exam
Vital Signs
Vital Signs
Temp Pulse Resp BP Pulse Ox
98.3 F 67 19 145/66 100
05/06/24 07:52 05/06/24 05:52 05/06/24 05:52 05/06/24 05:52 05/06/24 05:52
Physical Exam
Constitutional: No Acute Distress
Cardiovascular: Regular Rate and S1/S2; Negative Murmur or Rub
Pulmonary: Clear and Symmetric; Negative Wheezes or Rales
Gastrointestinal: Soft, Non Tender, Non Distended and Normal Bowel Sounds
Skin: Warm and Dry; Negative Rash or Jaundice
Objective Data
Lab Data
Lab Results
05/06/24 05:52
05/06/24 05:52
PT 16.2 Sec (11.4-14.6) H 05/05/24 04:26
INR 1.32 05/05/24 04:26
APTT 34.3 Sec (23.4-35.0) 05/05/24 04:26
Estimated Creat Clear 94 ml/min 05/06/24 05:52
Total Bilirubin 0.4 mg/dl (0.2-1.3) 04/29/24 06:54
AST 25 U/L (17-59) 04/29/24 06:54
ALT 27 U/L (0-50) 04/29/24 06:54
Alkaline Phosphatase 117 U/L (38-126) 04/29/24 06:54
Most recent labs reviewed notable in that:
persistent leukocytosis
L shift resolved
cr 0.7 today
hypoglycemic to 53
vanc tr 16
Micro Results:
04/28/24 19:49 Wound Culture - Final
Heel - Right Escherichia coli - ESBL
Gram Stain - Final
04/28/24 22:49 MRSA Screen - Final
Nose No Methicillin Resistant Staphylococcus aureus isolated.
Care Review
Plan reviewed with: Physician (Dr Gayle - hypoglycemia)
--- NOTE | 2024-05-06 09:56 | W.PN.HOSP.TC ---
Today's Communication/Plan
-
IV Lasix x1
check CXR and night O2 for nocturnal Hypoxia, will ask pulm to evaluate. May need OP Sleep eval.
continue IV abx per ID with ongoing discussions for PO vs IV at discharge
hold Lantus and oral agents for recurring hypoglycemia in setting of poor appetite, continue SSI for now
transfer to [facility] floors
Assessment / Plan
Assessment / Plan
Assessment:
Right heel ulcer, possible osteomyelitis
- MRI: Focal small soft tissue defect involving the superficial plantar soft tissues, inferior to the calcaneus. No evidence of collection to suggest abscess. No evidence for osteo myelitis. Intermediate T1-weighted signal within the subcutaneous
soft tissues off the plantar aspect of the posterior and inferior calcaneus, without significant enhancement postcontrast. This could represent soft tissue callus and/or relatively devascularize soft tissues. No evidence of collection. No evidence
for osteomyelitis of the calcaneus. Numerous prominent tortuous enhancing varicose veins within the medial soft tissues of the right lower leg and ankle.
- continue Vanco/Zosyn per ID. ESBL in culture
- s/p Right Distal Popliteal - Peroneal artery bypass (SVG) on 05/04
- continue wound care
- Podiatry and Vascular following
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
- improved with slower infusion
LUE Vancomycin infiltrate
- on hylenex protocol with VATS team
Nocturnal hypoxia
- will check nocturnal sats tonight
- possibly has sleep apnea; sleep study outpatient recommended
History of osteomyelitis status post amputation of left third toe, right second/third toes
Peripheral vascular disease status post bypass of left lower extremity/stent of right lower extremity
Type 2 diabetes
- hypoglycemic from poor appetite
- hold Lantus for now
- Hold repaglinide, Metformin, dapagliflozin at discharge
- insulin sliding scale
Diabetic neuropathy
Hyperlipidemia
- continue statin
History of subdural hematoma
Essential hypertension
- continue lisinopril
DVT ppx: Heparin
Code: Full
Total Critical Care Time 38 minutes. I was immediately available to the patient and staff. I personally examined, reviewed labs, diagnostic images/reports, interpretations, treatment plans, discussed patient care with other providers and family
or caregivers (if patient is unable to make decisions), entered orders as appropriate and documented the medical record.
Anticipated Discharge: > 48 hours
Subjective/Interval History
-
Date of Service: May 06, 2024
last evening with hypoxia to 50s, asymptomatic, rapidly improved
he denies any known sleep apnea issues but is willing to get tested outpatient
IV Vancomycin infiltrated into LUE, Hylenex ordered per protocol
Objective Data
-
Labs:
Laboratory Results
05/06/24
05:52
WBC 15.8 H
Hgb 10.3 L
Hct 31.4 L
Plt Count 281
Sodium 134 L
Potassium 4.4
Chloride 102
Carbon Dioxide 24
BUN 16
Creatinine 0.7
Glucose 53 L*
Calcium 8.1 L
Vital Signs:
Vital Signs
Temp Pulse Resp BP Pulse Ox
98.3 F 67 19 145/66 100
05/06/24 07:52 05/06/24 05:52 05/06/24 05:52 05/06/24 05:52 05/06/24 05:52
I&O
05/05/24 05/06/24 05/07/24
06:59 06:59 06:59
Intake Total 640 / 720 2240 / 2240
Output Total 1185 / 1320 1775 / 1775
Balance -545 / -600 465 / 465
Physical Exam
-
General: No Apparent Distress
HEENT: Normocephalic and Atraumatic
Respiratory: Non Labored Respirations; Negative Wheezes or Rales
Cardiac: Regular Rhythm and S1/S2
GI: Soft and Nontender
Genito-urinary: No Costovertebral Tender
Musculoskeletal: No Edema
Neuro: AO x 3
Hematologic / Lymphatic: No Lymphadenopathy
Psych: Calm
Data Reviewed
-
Critical Care Time (in minutes): 38
Labs: Labs Reviewed by me
--- NOTE | 2024-05-06 10:43 | VATNOTE ---
Pt arm reassessed after 1st dose of Hylenex, swelling unchanged, slight redness noted. Pharmacy contacted for 2nd dose of Hylenex at this time.
--- NOTE | 2024-05-06 11:20 | VATNOTE ---
Heat applied to L arm after hylenex administration. Notified PCN that pt should keep arm elevated and heat applied for 24 hours.
[2024-05-06 11:36] LABS: Glucose - Point of Care 259 mg/dl (70-99)
[2024-05-06] MEDS: LASIX 20 MG IV (11:53)
[2024-05-06] MEDS: NOVOLOG FLEXPEN-LOW RESISTANCE 3 UNITS SC (11:53)
--- NOTE | 2024-05-06 12:51 | CM ---
CM following re: discharge planning.
Reviewed pt' chart, met with pt and spoke to pt;s daughter Teetee to update on discharge plan progress.
From CM notes a plan is [facility] re[facility] or [facility].
CM explained to pt's daughter admitting criteria for an acute level of rehab, she expressed her understanding and pt's daughter requested following SNFs: [facility], [facility], [facility] and [facility]. pt's daughter stated
her number one preference [facility].
A referral to above SBFs made. Awaiting for determination.
D/C plan: preferred SNF, number one choice [facility].
CM will follow with discharge plan updates as hospitalization progresses
--- NOTE | 2024-05-06 13:22 | PTCARENOTE ---
Pt has been voiding using urinal anywhere from 150-500ml at a time. Pt found to be incontinent of urine when pt assisted from chair to BSC to attempt BM. After returning to chair, bladder scan completed= 937ml. Dr Gayle notified of findings and
order for Frey catheter received and placed following protocol
[2024-05-06] MEDS: INVANZ 60 MG IV (13:39)
--- NOTE | 2024-05-06 16:01 | WOUNDNOTE ---
[facility] RN NOTE: Right heel debrided by Dr. Erickson today and wound vac ordered. Patient denied pain and need for pain medication prior to vac application. Wound dressing removed with moderate drainage. Edges of wound soft/boggy. Blistered area noted
around base of wound and alginate was applied to this area to protect from drape. See worklist for details on vac dressing application. Patient tolerated well. RN Fidelina given update. Patient requesting dietary consult for protein supplement, will
confirm with hospitalist. Plan is for vac change on Tuesday 05/08.
--- NOTE | 2024-05-06 16:15 | PTCARENOTE ---
Pt remains OOB in chair following visit from C RN and placement of Wound Vac. Pt denies c/o pain. Remains on RA w/ Pox 95%. No SOB. No changes from previous physical assessment findings.
[2024-05-06] MEDS: NOVOLOG FLEXPEN-LOW RESISTANCE 2 UNITS SC (16:41)
[2024-05-06 16:48] LABS: Glucose - Point of Care 234 mg/dl (70-99)
--- NOTE | 2024-05-06 17:41 | VATNOTE ---
Re-evaluated L arm vancomycin infiltrate. Minimal if any swelling remains, no erythema noted, and patient denies pain or discomfort.
[2024-05-06] MEDS: CRESTOR 20 MG PO (18:15)
[2024-05-06] MEDS: XARELTO 2.5 MG PO (20:01)
--- NOTE | 2024-05-06 21:03 | PTCARENOTE ---
Received patient AAOx3, following commands, denying pain. Normal sinus, 70s, BP stable. +1 RLE and trace LLE. Doppler pedal pulses bilaterally, palpable radial pulses. Normothermic. 96% on room air, lung sounds diminished throughout. Positive bowel
sounds, abdomen soft, round, nontender. No BM, refused colace and is willing to take it in the morning. Frey for acute retention draining yellow urine. Right groin dressing CDI. Wound vac to right heel. Right PIV patent, WNL. Call garcia within
reach.
[2024-05-06 22:00] LABS: Glucose - Point of Care 195 mg/dl (70-99)
[2024-05-07] VITALS (10 sets, daily range): BP systolic 122–145; BP diastolic 60–65; BMI 28.9
[2024-05-07 00:10] LABS: Vancomycin Peak 20.9 ug/ml (18-26)
--- NOTE | 2024-05-07 04:35 | PTCARENOTE ---
Report given to otoniel DARBY on , transferred without any issues.
[2024-05-07 06:26] LABS: % Basophils 0.3 % (0-2); % Eosinophils 1.5 % (0-6); % Immature Granulocytes 3.6 % (0-0.5); % Lymphocytes 10.9 % (20.5-51.1); % Monocytes 10.9 % (1.7-9.3); % Neutrophils 72.8 % (42.2-75.2); Absolute Eosinophils 0.2 10^3/uL (0-0.7); Absolute Immature Granulocytes 0.5 10^3/uL (0-0.05); Absolute Lymphocytes 1.4 10^3/uL (1.2-3.4); Absolute Monocytes 1.4 10^3/uL (0.1-0.6); Absolute Neutrophils 9.5 10^3/uL (1.4-6.5); Hematocrit 31.4 % (39.0-52.0); Hemoglobin 10.5 g/dL (13.0-18.0); Mean Corp Hgb Conc. 33.4 g/dL (33.0-37.0); Mean Corpuscular Hgb 28.2 pg (27.0-31.0); Mean Corpuscular Volume 84.4 fL (80.0-94.0); Mean Platelet Volume 9.3 fL (7.4-10.4); Nucleated Red Blood Cells % 0 % (-); Platelet Count 299 10^3/uL (130-400); Red Blood Cell Count 3.72 10^6/uL (4.70-6.10); White Blood Cell Count 13.1 10^3/uL (4.8-10.8)
[2024-05-07 06:35] LABS: Vancomycin Trough 14.5 ug/ml (5-20)
[2024-05-07 06:55] LABS: Blood Urea Nitrogen 23 mg/dl (9-20); Calcium 8.2 mg/dl (8.4-10.2); Carbon Dioxide 25 mmol/L (22-30); Chloride 101 mmol/L (98-107); Estimated Creatinine Clearance 110 ml/min; Glucose 127 mg/dl (70-99); Potassium 4.3 mmol/L (3.5-5.1); Sodium 134 mmol/L (135-145); eGFR > 60.00
[2024-05-07] MEDS: VANCOCIN 275 MG IV ×2 (07:57→17:07)
[2024-05-07] MEDS: THERAGRAN 1 TABLET PO (08:07)
[2024-05-07] MEDS: LOW STRENGTH ASPIRIN 81 MG PO (08:08)
[2024-05-07] MEDS: COLACE 100 MG PO ×2 (08:08→21:00)
[2024-05-07] MEDS: OCUVITE SOFTGEL 2 CAP PO (08:08)
[2024-05-07] MEDS: HEPARIN 5000 UNITS SC ×3 (08:08→23:30)
[2024-05-07] MEDS: NOVOLOG FLEXPEN-LOW RESISTANCE SC (08:09)
[2024-05-07] MEDS: DAKIN'S SOLUTION 0.125% 1/4 STRENGTH 1 ML TOPICAL (08:09)
[2024-05-07] MEDS: DESENEX/MITRAZOL/ZEASORB 1 APPLIC TOPICAL ×2 (08:09→21:00)
[2024-05-07] MEDS: XARELTO 2.5 MG PO ×2 (08:10→21:00)
[2024-05-07] MEDS: SANTYL OINTMENT 1 APPLIC TOPICAL (08:10)
--- NOTE | 2024-05-07 08:17 | PHA.VAN.FU ---
Vancomycin Assessment / Plan
- Assessment
Renal Function: Stable
WBC's are: Trending Down
In the past 24 hrs, patient has been: Afebrile
Concomitant Antimicrobials: ertapenem
- Assessment - Therapeutic Drug Monitoring
Extrapolated Cmax (mcg/mL): 25.4*
Peak level was drawn: More than 3 hours after previous dose (drawn ~3.2H after end of previous 2H infusion --> may lead to overestimation of half-life and underestimation of Cmax and AUC compared to true values)
Extrapolated Cmin (mcg/mL): 13.8
Trough Drawn: Appropriately
Levels were drawn: At steady state (levels drawn after 16th maintenance dose)
Calculated AUC (mcg*h/mL): 458*
Calculated ke: 0.0613
Calculated half life (H): 11.3*
Calculated Vd (L): 89 (~0.95 L/kg)
Calculated Vanc CL (ml/min): 91
- Dosing Plan
Continue: Vanc 1250mg Q12H
Accuracy of calculations reduced due to peak being drawn late but trough appropriate to continue present dosing
- Monitoring Plan
Level(s) appropriate: Recheck trough at minimum of weekly intervals, Repeat sooner for changes in renal function or clinical status
Next Level Due (Date): ~05/14, may consider sooner
- Follow Up
Pharmacy will continue to follow.
Vancomycin Follow UP
- -
Patient Age: 79
Patient Sex: Male
Vancomycin Day #: 10
Indication: [facility]
Requesting Provider: Dr. Stiles / Chitra
Pertinent Antimicrobial Allergies:
NKDA
Height / Weight:
Height 5 ft 11 in
Actual Weight 94 kg
IBW in k.3
Adjusted BW in k.5
Pertinent Past Medical History: DM 2, PVD
- Vital Signs / Lab Results
Temp Pulse Resp BP Pulse Ox
98.2 F 67 18 143/62 97
05/07/24 05:00 05/07/24 05:00 05/07/24 05:00 05/07/24 05:00 05/07/24 05:00
Lab Results - Hematology
05/04/24 05/05/24 05/06/24
20:29 04:26 05:52
WBC 20.2 H 17.7 H 15.8 H
05/07/24
05:24
WBC 13.1 H
Lab Results - Chemistry
05/04/24 05/05/24 05/06/24
20:29 04:26 05:52
BUN 19 18 16
Creatinine 0.6 L 0.5 L 0.7
Estimated Creat Clear 110 110 94
05/07/24
05:24
BUN 23 H
Creatinine 0.6 L
Estimated Creat Clear 110
Therapeutic Drug Monitoring
Vancomycin Peak 20.9 ug/ml (18-26) 05/06/24 23:26
Vancomycin Trough 14.5 ug/ml (5-20) 05/07/24 05:24
--- NOTE | 2024-05-07 10:32 | W.PN.VS ---
Addendum entered and electronically signed by Leobardo Morales MD 05/07/24 10:46:
Seen and examined with HEAD TENNIS PROFESSIONAL. Agree with findings as noted below. Palpable right lower extremity graft pulse. Foot warm. Incision clean dry and intact. Plan/as discussed and noted below. Continue EDI (50 cc out over 24 hours serosanguineous).
Original Note:
Today's Communication / Plan
-
Patient seen and examined at bedside with Dr. Leobardo Morales, below plan reviewed with attending
Assessment/Plan
-
Assessment: POD 3 right lower extremity above-knee popliteal artery to peroneal artery using ipsilateral non-reversed great saphenous vein
Plan:
Out of bed to chair/ambulate
Continue local wound care
Restart home Xarelto
Continue EDI drain, with documentation of I and O
Case management following for disposition planning
Subjective Data
-
Date of Service: May 07, 2024
Patient seen and examined at bedside, reports well-managed postoperative pain but does indicate continued right lower extremity edema that is not painful. Denies nausea, vomiting, fever, and chills. Reports eagerness for neck steps following
discharge likely to rehab. States he overall is feeling very well.
Objective Data
-
Vital Signs
Temp Pulse Resp BP Pulse Ox
98.1 F 70 16 144/62 96
05/07/24 07:00 05/07/24 07:00 05/07/24 07:00 05/07/24 07:00 05/07/24 09:54
Intake and Output
05/06/24 05/07/24 05/08/24
06:59 06:59 06:59
Intake Total 2240 / 2240 1080 / 1080
Output Total 1775 / 1775 3700 / 3700
Balance 465 / 465 -2620 / -2620
Intake:
Oral fluids 1200 / 1200 720 / 720
IV fluids (Total) 320 / 320
nss 320 / 320
IV piggybacks 720 / 720 360 / 360
Output:
Drain Output (Total) 75 / 75 50 / 50
Right Leg Roland-Carrasquillo 75 / 75 50 / 50
Urine, Frey 325 / 325 2325 / 2325
Urine, Voided 725 / 725 1325 / 1325
Straight cath output 650 / 650
Lab Results
05/07/24 05:24
05/07/24 05:24
Calcium 8.2 mg/dl (8.4-10.2) L 05/07/24 05:24
Total Bilirubin 0.4 mg/dl (0.2-1.3) 04/29/24 06:54
AST 25 U/L (17-59) 04/29/24 06:54
ALT 27 U/L (0-50) 04/29/24 06:54
Alkaline Phosphatase 117 U/L (38-126) 04/29/24 06:54
Total Protein 6.0 g/dl (6.3-8.2) L 04/29/24 06:54
Albumin 3.4 g/dl (3.5-5.0) L 04/29/24 06:54
Physical Exam
-
No apparent distress, resting in bed comfortably
No tachycardia
No dyspnea on room air
ABD flat, nontender, nondistended
Left groin puncture site CDI
Right leg sites clean, dry, intact. No drainage noted, EDI drain with serosanguineous output
Right foot warm, pink
PT Doppler signal present
--- NOTE | 2024-05-07 10:32 | W.PN.HOSP.TC ---
Today's Communication/Plan
-
await SNF placement
Assessment / Plan
Assessment / Plan
Assessment:
Right heel ulcer, possible osteomyelitis
- MRI: Focal small soft tissue defect involving the superficial plantar soft tissues, inferior to the calcaneus. No evidence of collection to suggest abscess. No evidence for osteo myelitis. Intermediate T1-weighted signal within the subcutaneous
soft tissues off the plantar aspect of the posterior and inferior calcaneus, without significant enhancement postcontrast. This could represent soft tissue callus and/or relatively devascularize soft tissues. No evidence of collection. No evidence
for osteomyelitis of the calcaneus. Numerous prominent tortuous enhancing varicose veins within the medial soft tissues of the right lower leg and ankle.
- continue Vanco/Ertapenem per ID x 6 weeks. ESBL in culture
- s/p Right Distal Popliteal - Peroneal artery bypass (SVG) on 05/04. OP Vascular f/u
- s/p excisional bedside debridement 05/06 by Podiatry, OP f/u
- continue wound care
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
- improved with slower infusion
LUE Vancomycin infiltrate
- on Hylenex protocol with VATS team
Nocturnal hypoxia
- desats nocturnally to 78%
- Patient is in need of oxygen at 2 liters/minute via nasal cannula continuously nocturnally due to pulse oximetry of 78% on room air at rest. Oxygen will help to improve hypoxemia. Patient is mobile within the home. DuoNeb therapy has been tried
and is ineffective in treating hypoxemia related symptoms. Oxygen is needed to improve symptoms.
- possibly has sleep apnea; sleep study outpatient recommended
History of osteomyelitis status post amputation of left third toe, right second/third toes
Peripheral vascular disease status post bypass of left lower extremity/stent of right lower extremity
Type 2 diabetes
- hypoglycemic from poor appetite
- resume Lantus at 6 units
- Hold repaglinide, Metformin, dapagliflozin until post-SNF and post-IV Abx. f/u Endocrine
- insulin sliding scale
Diabetic neuropathy
Hyperlipidemia
- continue statin
History of subdural hematoma
Essential hypertension
- continue lisinopril
DVT ppx: Heparin
Code: Full
Anticipated Discharge: 24 - 48 hours
Subjective/Interval History
-
Date of Service: May 07, 2024
no new complaints at present
Objective Data
-
Labs:
Laboratory Results
05/07/24
05:24
WBC 13.1 H
Hgb 10.5 L
Hct 31.4 L
Plt Count 299
Sodium 134 L
Potassium 4.3
Chloride 101
Carbon Dioxide 25
BUN 23 H
Creatinine 0.6 L
Glucose 127 H
Calcium 8.2 L
Vital Signs:
Vital Signs
Temp Pulse Resp BP Pulse Ox
98.1 F 70 16 144/62 96
05/07/24 07:00 05/07/24 07:00 05/07/24 07:00 05/07/24 07:00 05/07/24 09:54
I&O
05/06/24 05/07/24 05/08/24
06:59 06:59 06:59
Intake Total 2240 / 2240 1080 / 1080
Output Total 1775 / 1775 3700 / 3700
Balance 465 / 465 -2620 / -2620
Physical Exam
-
General: No Apparent Distress
HEENT: Normocephalic and Atraumatic
Respiratory: Negative Wheezes or Rales
Cardiac: Regular Rhythm and S1/S2
GI: Soft and Nontender
Genito-urinary: No Costovertebral Tender
Neuro: AO x 3
Hematologic / Lymphatic: No Lymphadenopathy
Psych: Calm
Data Reviewed
-
Total Time Spent with Patient (in minutes): 44
Labs: Labs Reviewed by me
--- NOTE | 2024-05-07 11:30 | W.PN.PUL3 ---
Today's Communication / Plan
-
Nocturnal oxygen if able
Outpatient sleep follow-up
Discharge planning
Sign off
Assessment
-
Patient transferred to the floors after being treated for sepsis.
Pulmonary following for nocturnal hypoxemia 05/07/2024.
Impression:
#Nocturnal hypoxia - either artifact vs sleep apnea - pt denies EDS or witnessed apneic events, although sometimes snores; reports Hx of RYAN from >20 years ago
-
#Right lower extremity critical limb ischemia s/p above�knee popliteal artery�peroneal artery bypass using ipsilateral non�reversed GSV (POD #2)
#RLE diabetic foot infection with wound culture showing ESBL E�coli from 04/28/2024
#Acute respiratory failure with hypoxia on supplemental oxygen, likely due to sepsis with acute organ dysfunction
#Leukocytosis -likely due to sepsis without shock due to RLE nonhealing diabetic foot wound
#Anemia
#Hypoglycemia (glucose 53 this AM on chemistry lab)
#History of right-sided nonhealing diabetic ulcer
#PAD
#DM type II with neuropathy (uncontrolled with HbA1C: 7.9 from 04/29/2024)
#Hypercholesterolemia
Plan:
From the respiratory perspective patient seems stable.
No oxygen requirements during the day.
Nocturnal pulse oximetry noted. Down to 78%. For a brief period of time.
Okay to prescribe nocturnal oxygen.
Recommended outpatient sleep follow-up for possible sleep study etc. Prior history of sleep apnea longer than 20 years ago.
Avoid sedatives as able.
-
Incentive spirometry encouraged.
-
Rest of care per primary team.
Discharge planning noted.
No additional recommendation
Sign off
Subjective Data
-
Date of Service:
Date of Service: May 07, 2024
Chief Complaint: Pulmonary Follow Up (Hypoxemia)
Subjective:
Denies any pulmonary complaints
Nocturnal hypoxemia down to 78% noted.
Review of Systems
General: Fever (n)
Cardiopulmonary: Dyspnea (n), Cough (n) and Sputum Production (n)
GI: Abdominal Pain (n)
Objective Data
Data Reviewed
Vital Signs / I&O / Oxygen:
Vital Signs
Temp Pulse Resp BP Pulse Ox
98.1 F 70 16 144/62 96
05/07/24 07:00 05/07/24 07:00 05/07/24 07:00 05/07/24 07:00 05/07/24 09:54
Intake and Output
05/06/24 05/07/24 05/08/24
06:59 06:59 06:59
Intake Total 2240 / 2240 1080 / 1080
Output Total 1775 / 1775 3700 / 3700
Balance 465 / 465 -2620 / -2620
SaO2 96
Nasal Cannula flow liters per 2
minute
Physical Exam
General: Comfortable
HEENT: Normocephalic
Cardiovascular: S1-S2
Respiratory: Clear and Non-Labored Respirations
GI: Soft and Non Distended
Neurology: Awake and Alert
Labs/Micro/Reports
Lab Data
05/07/24 05:24
05/07/24 05:24
[2024-05-07 12:15] LABS: Glucose - Point of Care 239 mg/dl (70-99)
--- NOTE | 2024-05-07 12:21 | W.PN.ID1 ---
Date of Service
Date of Service: May 07, 2024
Today's Communication
- patient at high risk for progression of infection to osteomyelitis, favor 6 week course of IV ertapenem and vancomycin 05/04-06/14 - script sent to therapeutic case manager, original on chart
- place picc
Assessment / Plan
Diabetic Foot Infection
Probable Osteomyelitis of the R heel
S/p Right lower extremity above-knee popliteal artery to peroneal artery 05/04
PAD/CAD
History of poor wound healing
- wound cultures - ESBL E coli and Diptheroid
- QTc 435
- s/p revascularization, for podiatry
- patient at high risk for progression of infection to osteomyelitis, favor 6 week course of IV ertapenem and vancomycin 05/04-06/14 - script sent to therapeutic case manager, original on chart
- place picc
- follow clinically
Chief Complaint
-: Other (diabetic foot infection)
Subjective / Review of Systems
afebrile
bp stable
for podiatry reevaluation
Vital Signs / Physical Exam
Vital Signs
Vital Signs
Temp Pulse Resp BP Pulse Ox
98.5 F 72 18 145/62 96
05/07/24 11:30 05/07/24 11:30 05/07/24 11:30 05/07/24 11:30 05/07/24 11:30
Physical Exam
Constitutional: No Acute Distress
Cardiovascular: Regular Rate and S1/S2; Negative Murmur or Rub
Pulmonary: Clear and Symmetric; Negative Wheezes or Rales
Gastrointestinal: Soft, Non Tender, Non Distended and Normal Bowel Sounds
Skin: Warm and Dry; Negative Rash or Jaundice
Wound: Other (surgical sites clean, no erythema, warmth, drainage or dehiscence)
Objective Data
Lab Data
Lab Results
05/07/24 05:24
08/01/24 05:24
PT 16.2 Sec (11.4-14.6) H 05/05/24 04:26
INR 1.32 05/05/24 04:26
APTT 34.3 Sec (23.4-35.0) 05/05/24 04:26
Estimated Creat Clear 110 ml/min 05/07/24 05:24
Total Bilirubin 0.4 mg/dl (0.2-1.3) 04/29/24 06:54
AST 25 U/L (17-59) 04/29/24 06:54
ALT 27 U/L (0-50) 04/29/24 06:54
Alkaline Phosphatase 117 U/L (38-126) 04/29/24 06:54
Most recent labs reviewed notable in that wbc count downtrending, L shift resolved x48 hrs
cr 0.6
not hypoglycemic this am
Micro Results:
04/28/24 19:49 Wound Culture - Final
Heel - Right Escherichia coli - ESBL
Gram Stain - Final
04/28/24 22:49 MRSA Screen - Final
Nose No Methicillin Resistant Staphylococcus aureus isolated.
[2024-05-07] MEDS: INVANZ 60 MG IV (13:22)
[2024-05-07] MEDS: NOVOLOG FLEXPEN-LOW RESISTANCE 2 UNITS SC (13:43)
--- NOTE | 2024-05-07 14:00 | CM ---
Addendum entered by Jim Chand 05/07/24 14:19:
PATIENT HAS WOUND VAC, NEEDS NOCTURNAL O2 AND IV/AB. IV/AB ORDER SHEET IS IN CHART. TO BE FORWARDED TO ACCEPTING FACILITY.
Original Note:
Per attending, patient is ready for discharge. CM's have been attempting to find facility that will accept patient. Patient has wound vac and will need nocturnal O2. [facility] unable to accept 'care needs exceed current capacity'. Daughter is
not accepting bed at [facility]. [facility] is preference. This CM called and left message for Sudha. The admissions liaison is not in today. CM left message for person who is covering. No response as yet. Additional referrals forwarded
at this time. Also called liaison for [facility]. She will check availability. Daughter, Teetee, wants to be apprised of developments. Patient will need insurance auth.
--- NOTE | 2024-05-07 15:04 | PN.CDI ---
CDI
- -
CDI:
Physician Documentation Request
Admit Date: 04/28/24 20:30
Dear Doctor Nalini,
Clinical Indicators:
Patient admitted with Right heel ulcer, possible osteomyelitis; s/p Right Distal Popliteal - Peroneal artery bypass (SVG) on 05/04.
05/04 Anesthesia Report: IVF 2525 ml EBL 150 ml
Hgb/Hct trend:
04/28/24 05/01/24 05/04/24
19:43 06:53 20:29
Hgb 14.4 12.2 L 11.1 L
Hct 42.5 35.9 L 32.7 L
05/06/24
05:52
Hgb 10.3 L
Hct 31.4 L
Based on the above, could you clarify in the progress notes, the appropriate diagnosis, if significant, that supports the above abnormalities and additional evaluation, monitoring and/or treatment rendered:
Anemia, due to acute blood loss and hemodilution
Anemia due to hemodilution only
Abnormal lab value, clinically insignificant
Other, please specify
Use of terms such as suspected, likely, concern for, or probable (associated with a specific diagnosis that is being evaluated, monitored, or treated as if it exists) are acceptable and can be coded in the inpatient setting, when documented at the
time of discharge.
Thank you,
Herminia Guzman RN BSN
CDI Specialist
available via tiger text
Please use your independent medical judgment in providing your response.
--- NOTE | 2024-05-07 17:05 | CM ---
Addendum entered by Jim Chand 05/07/24 17:15:
[place] with Dr. Pearl House .
Patient has a wound vac, IV/AB and nocturnal O2.
Addendum entered by Jim Chand 05/07/24 17:15:
NEEDS INSURANCE AUTH.
Original Note:
Spoke with daughter x 5 today. Patient was recommended by therapy for SNF. Daughter had requested referral to [facility]. Referral was forwarded and at 4:40PM this CM received notice from Lakshmi ([phone]) that patient was accepted.
CM called and informed daughter who now isn't sure this is the best option because it is for 10-14 days and patient cannot go home thereafter because he can't care for himself and his house is small. Daughter would consider having him at her home
but she would have to rearrange dining room furniture, get a hospital bed and she is uncertain about her being able to do the IV/AB. CM explained that infusion services trains on IV administration. She is questioning whether patient can go from
Acute to SNF. She has decided to call [facility] and discuss situation. She will call in the AM and contact attending and CM on
05/08/24. She also does not feel patient is ready to be discharged. Additional blanket referrals have been forwarded to SNF's.
[2024-05-07 17:07] LABS: Glucose - Point of Care 194 mg/dl (70-99)
[2024-05-07] MEDS: NOVOLOG FLEXPEN-LOW RESISTANCE 1 UNITS SC (17:12)
[2024-05-07] MEDS: CRESTOR 20 MG PO (17:13)
[2024-05-07 21:12] LABS: Glucose - Point of Care 264 mg/dl (70-99)
[2024-05-07] MEDS: LANTUS 0.06 UNITS SC (21:18)
[2024-05-08] VITALS (8 sets, daily range): BP systolic 127–149; BP diastolic 60–72; PULSE 83–84; O2SAT 99–100; BMI 28.0
[2024-05-08] MEDS: VANCOCIN 275 MG IV ×2 (06:14→17:26)
[2024-05-08] MEDS: DULCOLAX 10 MG RECTAL (06:14)
[2024-05-08 06:52] LABS: % Basophils 0.4 % (0-2); % Eosinophils 1.5 % (0-6); % Immature Granulocytes 2.8 % (0-0.5); % Lymphocytes 13.9 % (20.5-51.1); % Monocytes 8.8 % (1.7-9.3); % Neutrophils 72.6 % (42.2-75.2); Absolute Basophils 0.1 10^3/uL (0-0.2); Absolute Eosinophils 0.2 10^3/uL (0-0.7); Absolute Immature Granulocytes 0.4 10^3/uL (0-0.05); Absolute Lymphocytes 1.9 10^3/uL (1.2-3.4); Absolute Monocytes 1.2 10^3/uL (0.1-0.6); Absolute Neutrophils 9.7 10^3/uL (1.4-6.5); Hematocrit 33.8 % (39.0-52.0); Hemoglobin 11.3 g/dL (13.0-18.0); Mean Corp Hgb Conc. 33.4 g/dL (33.0-37.0); Mean Corpuscular Hgb 28.1 pg (27.0-31.0); Mean Corpuscular Volume 84.1 fL (80.0-94.0); Mean Platelet Volume 9.1 fL (7.4-10.4); Nucleated Red Blood Cells % 0 % (-); Platelet Count 355 10^3/uL (130-400); Red Blood Cell Count 4.02 10^6/uL (4.70-6.10); Red Cell Dist. Width 12.8 % (11.5-14.5); White Blood Cell Count 13.4 10^3/uL (4.8-10.8)
[2024-05-08 07:08] LABS: Glucose - Point of Care 208 mg/dl (70-99)
[2024-05-08 07:12] LABS: Blood Urea Nitrogen 24 mg/dl (9-20); Calcium 8.6 mg/dl (8.4-10.2); Carbon Dioxide 27 mmol/L (22-30); Chloride 99 mmol/L (98-107); Estimated Creatinine Clearance 110 ml/min; Glucose 201 mg/dl (70-99); Potassium 4.9 mmol/L (3.5-5.1); Sodium 134 mmol/L (135-145); eGFR > 60.00
--- NOTE | 2024-05-08 07:45 | W.PN.POD ---
Today's Communication
Today's Communication
-Stage 4/diabetic heel wound S/P full thickness debridement 05/06/24- wound vac was removed and wound was re evaluated. Little viable tissue presently noted. Plantar fascia exposed over calcaneal tuberosity. Wound healing guarded.
-Continue wound vac upon DC to as ordered. IV abt per ID.
- Wound redressed with dakins wet dressing today. Will follow while here and upon dc from .
Assessment / Plan
-
1-DM2 with PAD- POD #4 S/P Right lower extremity above-knee popliteal artery to peroneal artery using ipsilateral non-reversed great saphenous vein
2-DM2 with DPN and LOPS
3-Gangrene to the right medial heel w cellulitis- Appreciate ID input
4-Stage 4/diabetic heel wound S/P full thickness debridement 05/06/24- wound vac was removed and wound was re evaluated. Little viable tissue presently noted.
Subjective
Chief Complaint
right foot cellultis
Subjective
Denies pain right foot- seen sitting up in chair, vac in place with good sEAL
Objective
Temp Pulse Resp BP Pulse Ox
97.8 F 72 16 149/70 99
05/08/24 11:43 05/08/24 11:43 05/08/24 11:43 05/08/24 11:43 05/08/24 11:43
05/08/24 06:22
05/08/24 06:22
Vital Signs and Lab results were reviewed.
Inspection: Cellulitis, Inflammation and Ulcer (RIGHT HEEL -)
Review of Systems
Review of Systems
Review of Systems: No Fever, No Chills, No Headache, No Nausea and No Diarrhea
Physical Exam
Physical Exam
General: No Apparent Distress, Comfortable and Conversant
Musculoskeletal: Edema, Right Lower Extrem (Minimal)
Skin: Warm, Dry and Ischemic Ulcer (right heel- appears dusky, no active bleeding noted. No odor or purulence. Plantar fascia exposed over calcaneal tuberosity. Wound healing guarded. )
Neuro: AO x 3 and Protective Sensation Absent
Vascular: Capillary Refill Delayed
Dorsalis Pedis: Diminished
Posterior Tibialis: Diminished
[2024-05-08 07:49] LABS: Glucose - Point of Care 131 mg/dl (70-99)
[2024-05-08] MEDS: NOVOLOG FLEXPEN-LOW RESISTANCE SC (07:59)
--- NOTE | 2024-05-08 08:10 | W.PN.VS ---
Addendum entered and electronically signed by Medardo Frey III, MD 05/08/24 14:17:
This patient was seen and examined with LEATHA Morfin. I agree with the history and physical exam as well as the assessment and plan.
Robust Doppler signal right ankle (PT)
Palpable pulse popliteal fossa
Heel debrided
Urinary retention-Frey reinserted. Will attempt another void trial this weekend
Flomax
Continue local wound care
Physical therapy
Will follow
Signed:
Medardo Frey III, MD
[facility] Vascular Surgery
[phone] ([phone])
Original Note:
Today's Communication / Plan
-
Patient seen and examined at bedside with Dr. Medardo Frey III, below plan reviewed with attending.
Assessment/Plan
-
Assessment: POD 4 right lower extremity above-knee popliteal artery to peroneal artery using ipsilateral non-reversed great saphenous vein
Plan:
Out of bed to chair/ambulate
Continue local wound care
Continue EDI drain, with documentation of I and O
From a vascular surgery perspective would continue inpatient monitoring today
Patient with urinary retention following Frey catheter requiring reinsertion added Flomax
Case management following for disposition planning
Subjective Data
-
Date of Service: May 08, 2024
Patient seen and examined at bedside, reports well-managed postoperative pain. He and daughter are expressing concern for next steps regarding discharge and home versus rehab as he is struggling with working with physical therapy but also
offloading pressure to heal on wound.
Objective Data
-
Vital Signs
Temp Pulse Resp BP Pulse Ox
98.1 F 72 16 138/66 95
05/08/24 03:39 05/08/24 03:39 05/08/24 03:39 05/08/24 03:39 05/08/24 03:39
Intake and Output
05/07/24 05/08/24 05/09/24
06:59 06:59 06:59
Intake Total 1080 / 1080 3140 / 3140
Output Total 3700 / 3700 2915 / 2915
Balance -2620 / -2620 225 / 225
Intake:
Oral fluids 720 / 720 2240 / 2240
IV piggybacks 360 / 360 900 / 900
Output:
Drain Output (Total) 50 / 50 15 / 15
Right Leg [place] 50 / 50 15 / 15
Urine, Frey 2325 / 2325 2900 / 2900
Urine, Voided 1325 / 1325
Lab Results
05/08/24 06:22
05/08/24 06:22
Calcium 8.6 mg/dl (8.4-10.2) 05/08/24 06:22
Total Bilirubin 0.4 mg/dl (0.2-1.3) 04/29/24 06:54
AST 25 U/L (17-59) 04/29/24 06:54
ALT 27 U/L (0-50) 04/29/24 06:54
Alkaline Phosphatase 117 U/L (38-126) 04/29/24 06:54
Total Protein 6.0 g/dl (6.3-8.2) L 04/29/24 06:54
Albumin 3.4 g/dl (3.5-5.0) L 04/29/24 06:54
Physical Exam
-
No apparent distress, resting in bed comfortably
No tachycardia
No dyspnea on room air
ABD flat, nontender, nondistended
Right leg sites clean, dry, intact. No drainage noted, EDI drain with serosanguineous output
Right foot warm, pink
PT Doppler signal present
[2024-05-08] MEDS: XARELTO 2.5 MG PO ×2 (08:22→19:58)
[2024-05-08] MEDS: LOW STRENGTH ASPIRIN 81 MG PO (08:22)
[2024-05-08] MEDS: OCUVITE SOFTGEL 2 CAP PO (08:22)
[2024-05-08] MEDS: HEPARIN 5000 UNITS SC (08:23)
[2024-05-08] MEDS: THERAGRAN 1 TABLET PO (08:23)
--- NOTE | 2024-05-08 08:23 | PHA.VAN.FU ---
Vancomycin Assessment / Plan
- Assessment
Renal Function: Stable
WBC's are: Stable
In the past 24 hrs, patient has been: Afebrile
Concomitant Antimicrobials: ertapenem
- Dosing Plan
Continue: Vanc 1250mg Q12H
- Monitoring Plan
Level(s) appropriate: Recheck trough at minimum of weekly intervals, Repeat sooner for changes in renal function or clinical status
Next Level Due (Date): ~05/14, may consider sooner
- Follow Up
Pharmacy will continue to follow.
Vancomycin Follow UP
- -
Patient Age: 79
Patient Sex: Male
Vancomycin Day #: 11
Indication: Bone And Joint
Requesting Provider: Dr. Stiles / Chitra
Pertinent Antimicrobial Allergies:
NKDA
Height / Weight:
Height 5 ft 11 in
Actual Weight 91.172 kg
IBW in k.3
Adjusted BW in k.5
Pertinent Past Medical History: DM 2, PVD
- Vital Signs / Lab Results
Temp Pulse Resp BP Pulse Ox
98.1 F 72 16 138/66 95
05/08/24 03:39 05/08/24 03:39 05/08/24 03:39 05/08/24 03:39 05/08/24 03:39
Lab Results - Hematology
05/06/24 05/07/24 05/08/24
05:52 05:24 06:22
WBC 15.8 H 13.1 H 13.4 H
Lab Results - Chemistry
05/06/24 05/07/24 05/08/24
05:52 05:24 06:22
BUN 16 23 H 24 H
Creatinine 0.7 0.6 L 0.6 L
Estimated Creat Clear 94 110 110
Therapeutic Drug Monitoring
Vancomycin Peak 20.9 ug/ml (18-) 05/06/24 23:26
Vancomycin Trough 14.5 ug/ml (5-20) 05/07/24 05:24
[2024-05-08] MEDS: DESENEX/MITRAZOL/ZEASORB 1 APPLIC TOPICAL ×2 (08:26→20:00)
[2024-05-08] MEDS: SANTYL OINTMENT 1 APPLIC TOPICAL (08:26)
[2024-05-08] MEDS: COLACE PO ×2 (08:26→19:58)
[2024-05-08] MEDS: DAKIN'S SOLUTION 0.125% 1/4 STRENGTH 1 ML TOPICAL (08:26)
--- NOTE | 2024-05-08 08:28 | W.PN.HOSP.TC ---
Today's Communication/Plan
-
wound vac
continue wound care per Podiatry/Vascular
continue IV Abx
DC planning likely to a SNF
Assessment / Plan
Assessment / Plan
Assessment:
Right heel ulcer, possible osteomyelitis
- MRI: Focal small soft tissue defect involving the superficial plantar soft tissues, inferior to the calcaneus. No evidence of collection to suggest abscess. No evidence for osteo myelitis. Intermediate T1-weighted signal within the subcutaneous
soft tissues off the plantar aspect of the posterior and inferior calcaneus, without significant enhancement postcontrast. This could represent soft tissue callus and/or relatively devascularize soft tissues. No evidence of collection. No evidence
for osteomyelitis of the calcaneus. Numerous prominent tortuous enhancing varicose veins within the medial soft tissues of the right lower leg and ankle.
- continue Vanco/Ertapenem per ID x 6 weeks. ESBL in culture. WBC stable
- s/p Right Distal Popliteal - Peroneal artery bypass (SVG) on 05/04. OP Vascular f/u
- s/p excisional bedside debridement 05/06 by Podiatry, OP f/u
- continue wound care per Podiatry/Vascular
- wound VAC being applied
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
- improved with slower infusion
LUE Vancomycin infiltrate
- on Hylenex protocol with VATS team
Nocturnal hypoxia
- desats nocturnally to 78%
- Patient is in need of oxygen at 2 liters/minute via nasal cannula continuously nocturnally due to pulse oximetry of 78% on room air at rest. Oxygen will help to improve hypoxemia. Patient is mobile within the home. DuoNeb therapy has been tried
and is ineffective in treating hypoxemia related symptoms. Oxygen is needed to improve symptoms.
- possibly has sleep apnea; sleep study outpatient recommended
Anemia due to acute blood loss from OR and hemodilution
- monitor
History of osteomyelitis status post amputation of left third toe, right second/third toes
Peripheral vascular disease status post bypass of left lower extremity/stent of right lower extremity
Type 2 diabetes
- hypoglycemic from poor appetite
- resume Lantus at 10 units
- Hold repaglinide, Metformin, dapagliflozin until post-SNF and post-IV Abx. f/u Endocrine
- insulin sliding scale
Diabetic neuropathy
Hyperlipidemia
- continue statin
History of subdural hematoma
Essential hypertension
- continue lisinopril
DVT ppx: Heparin
Code: Full
Anticipated Discharge: > 48 hours
Subjective/Interval History
-
Date of Service: May 08, 2024
patient reports wound evaluated by podiatry/vascular and felt best to keep patient inpatient this weekend
Objective Data
-
Labs:
Laboratory Results
05/08/24
06:22
WBC 13.4 H
Hgb 11.3 L
Hct 33.8 L
Plt Count 355
Sodium 134 L
Potassium 4.9
Chloride 99
Carbon Dioxide 27
BUN 24 H
Creatinine 0.6 L
Glucose 201 H
Calcium 8.6
Vital Signs:
Vital Signs
Temp Pulse Resp BP Pulse Ox
98.1 F 72 16 138/66 95
05/08/24 03:39 05/08/24 03:39 05/08/24 03:39 05/08/24 03:39 05/08/24 03:39
I&O
05/07/24 05/08/24 05/09/24
06:59 06:59 06:59
Intake Total 1080 / 1080 3140 / 3140
Output Total 3700 / 3700 2915 / 2915
Balance -2620 / -2620 225 / 225
Physical Exam
-
General: No Apparent Distress
HEENT: Normocephalic and Atraumatic
Respiratory: Negative Wheezes
Cardiac: Regular Rhythm and S1/S2
GI: Soft
Genito-urinary: No Costovertebral Tender
Neuro: AO x 3
Psych: Calm
Data Reviewed
-
Total Time Spent with Patient (in minutes): 45
Labs: Labs Reviewed by me
[2024-05-08] MEDS: LANTUS 0.04 UNITS SC (09:27)
[2024-05-08] MEDS: NOVOLOG FLEXPEN-LOW RESISTANCE 2 UNITS SC (09:29)
--- NOTE | 2024-05-08 10:52 | VATNOTE ---
Vat rounds: Left arm infiltrate resolving. no C/o pain or discomfort.
--- NOTE | 2024-05-08 11:07 | CM ---
CM following re: discharger planning.
Reviewed pt's chart, met with pt and spoke to pt's daughter in length to update on discharge plan progress.
Pt's daughter stated she that per Dr. Frey pt most likely will stay in the hospital over the weekend. Pt's daughter stated she spoke to [facility] admissions green end department supervisor and and she confirmed that a referral is denied due to
pt's insurance is out of network. Pt's stated that [facility] is not an option, she visited that facility and did not like it. Pt's daughter is aware that [facility] denied a referral and she stated she spoke with [facility]
didactic program in dietetics director and she is aware. Pt's daughter stated that [facility] and [facility] SNF are not options. Pt's daughter is aware that [facility] will accept the pt. Pt's daughter stated she spoke to [facility]
rehab admissions department real estate representative and she was told that pt will be able to stay at [facility] if approved by insurance for up to 2 weeks. Pt's daughter is aware that pt will need up to 6 weeks of IV antibiotics, wound vac,
wound care and per daughter pt might not be able to return back home after the discharge from [facility] rehab.
CM spoke to [facility] admissions liaison and she confirmed that they will offer a bed for a short term rehab as early as next week based on bed availability. Also, per [facility] they need detailed wound care treatment recommendation. Pt's daughter is
aware and she stated she will tout [facility] and [facility] today. Pt's daughter expressed her satisfaction regarding discharge plan progress and she stated that [facility] and/or [facility] SNF are the options. Pt's daughter stated
that of now she is not sure what is number one preference.
PM&R consult requested.
Updated PT and OT evaluations noted - Acute rehab level of care recommended.
D/C plan: [facility] or [facility] SNF. pt will needs an auth for either Acute rehab or SNF.
CM will follow with discharge planning needs as hospitalization progresses
--- NOTE | 2024-05-08 11:13 | W.PN.ID1 ---
Date of Service
Date of Service: May 08, 2024
Today's Communication
Continue VAncomycin and Ertapenem.
Assessment / Plan
Diabetic Foot Infection
Probable Osteomyelitis of the R heel
S/p Right lower extremity above-knee popliteal artery to peroneal artery 05/04
PAD/CAD
History of poor wound healing
- wound cultures - ESBL E coli and Diphtheroid
- QTc 435
- s/p revascularization, for podiatry
-For wound vac placement
- patient at high risk for progression of infection to osteomyelitis, continue 6 week course of IV ertapenem and vancomycin 05/04-06/14. Dr. Buenrostro sent script to correctional case manager, original on chart
- picc placed
- follow clinically
Chief Complaint
-: Other (diabetic foot infection)
Subjective / Review of Systems
Feels OK. Daughter on phone.
Vital Signs / Physical Exam
Vital Signs
Vital Signs
Temp Pulse Resp BP Pulse Ox
97.3 F 78 16 145/72 98
05/08/24 07:05 05/08/24 07:05 05/08/24 07:05 05/08/24 07:05 05/08/24 09:57
Physical Exam
Constitutional: No Acute Distress and Comfortable
Extremities: Edema (RLE 2+ edema)
Wound: Other (Right foot dressing intact)
Lines: PICC (RUE)
Objective Data
Lab Data
Lab Results
05/08/24 06:22
05/08/24 06:22
PT 16.2 Sec (11.4-14.6) H 05/05/24 04:26
INR 1.32 05/05/24 04:26
APTT 34.3 Sec (23.4-35.0) 05/05/24 04:26
Estimated Creat Clear 110 ml/min 05/08/24 06:22
Total Bilirubin 0.4 mg/dl (0.2-1.3) 04/29/24 06:54
AST 25 U/L (17-59) 04/29/24 06:54
ALT 27 U/L (0-50) 04/29/24 06:54
Alkaline Phosphatase 117 U/L (38-126) 04/29/24 06:54
Most recent labs reviewed.
Micro Results:
04/28/24 19:49 Wound Culture - Final
Heel - Right Escherichia coli - ESBL
Gram Stain - Final
04/28/24 22:49 MRSA Screen - Final
Nose No Methicillin Resistant Staphylococcus aureus isolated.
Care Review
Plan reviewed with: Physician (Dr. Jayashree Gayle)
[2024-05-08] MEDS: FLOMAX 0.4 MG PO (13:00)
[2024-05-08] MEDS: NOVOLOG FLEXPEN-LOW RESISTANCE 5 UNITS SC (13:07)
[2024-05-08 13:08] LABS: Glucose - Point of Care 350 mg/dl (70-99)
[2024-05-08] MEDS: INVANZ 60 MG IV (13:08)
--- NOTE | 2024-05-08 13:52 | WOUNDNOTE ---
WO RN NOTE: Patient visited for vac change of right heel. Patient denied pain and need for pain medication prior to vac application. Edges of wound soft/boggy. Blistered area noted around base of wound and alginate was applied to this area to
protect from drape. See worklist for details on vac dressing application. Patient tolerated well. WILNER Louis given update. Patient requesting dietary consult for protein supplement. Plan is for discharge to SNF on 05/10.
--- NOTE | 2024-05-08 14:17 | CON.MD ---
Consultation - Medical
-
Referring Provider:�Dr. Aj Gayle
Chief Complaint:�Debility after lower extremity bypass surgery
�
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
antibiotics. He was started on vancomycin and Zosyn. On 05/01/2024 he had a diagnostic angiogram noting diffusely diseased distal popliteal artery, severe in-stent restenosis, severe posterior tibial disease. On 05/04/2024 he had a right lower
extremity [id number] popliteal artery to peroneal artery procedure using ipsilateral nonreversed great saphenous vein. He will continue on vancomycin and ertapenem for total of 6 weeks course of antibiotics from 05/04 - 06/14/2024 per infectious
disease. On 05/05/2024 he had a debridement of the right heel by Dr. Erickson. Noted with urinary retention requiring Frey reinsertion. Plan to remove Frey trial.
�
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
hypercholesterolemia, subdural hematoma
Procedure History:�Appendectomy,Surgery on the foot for removal of calcium deposit. Surgery for I&D of foot; right cuboid bone debridement, left third toe amputation, right first second and third toe amputations, surgery for ruptured hematoma.
Family History:�None pertinent
�
Social History:�
Functional Level Premorbidly:�Independent with all activities�
Functional Level Currently:�Mod assist transfers, mod assist ambulate 3 feet with rolling walker need for line management.
�
Tobacco: Denies�
Alcohol: Denies�
Drug use:�Denies�
�
Lives with:�Spouse
24-hour assistance available:�
Number of floors: 2 story split-level
# steps to enter:�0
# steps to second floor:
Potential First floor set up:�Yes
Driving:�Yes
Occupation:�Works for [employer]
�
Allergies:�
Allergy/AdvReac Type Severity Reaction Status Date / Time
No Known Allergies Allergy Verified 04/24/24 14:33
Review of Systems:�
Constitutional: (x) abNormal _fatigue
Eye: (x) Normal _
Ear/Nose/Throat: (x) Normal _
Respiratory: (x) Normal _
Cardiovascular: (x) abNormal _vascular bypass surgery
Gastrointestinal: (x) Normal _
Genitourinary: (x) Normal _
Musculoskeletal: (x) Normal _
Integumentary: (x) Normal _
Neurologic: (x) abNormal _decreased sensation both feet
Psychiatric: (x) Normal _
Endocrine: (x) Normal _
Hematologic/Lymphatic: (x) Normal _
Allergic/Immunologic: (x) Normal _
�
Medications:�
Active Current Visit Medication List
Category Date Time Status
Acetaminophen [Tylenol] Med 05/04/24 16:00 Active
650 mg PO Q4HPRN PRN
Aspirin Chewable [Low Strength Aspirin] Med 05/05/24 08:00 Active
81 mg PO DAILY
Bisacodyl [Dulcolax] Med 05/04/24 16:00 Active
10 mg RECTAL DAILYPRN PRN
Collagenase [Santyl Ointment] Med 05/07/24 08:00 Active
See Dose Instructions TOPICAL DAILY
Dapagliflozin [Farxiga] Med 04/29/24 08:00 Hold
5 mg PO BID AT 0800,1700
Dextrose 50%-Water [Dextrose 50% Syringe] Med 04/28/24 21:45 Active
12.5 grams IV [id number] PRN
Docusate Sodium [Colace] Med 04/29/24 20:00 Active
100 mg PO BID
Ertapenem [Invanz] 1,000 mg Med 05/06/24 14:00 Active
0.9% Sodium Chloride [Nss] 50 ml
IV Q24H
Flush (0.9% Sodium Chloride) [Flush (Nss)] Med 04/28/24 22:00 Active
See Dose Instructions IV PER PROTOCOL
Glucagon [GlucaGen] Med 04/28/24 21:45 Active
1 mg IM PRN PRN
HYDROmorphone [Dilaudid] Med 05/04/24 16:00 Active
0.5 mg IV Q2HPRN PRN
Heparin Med 05/05/24 16:00 Active
5,000 units SC Q8
Insulin Aspart Corrective Low [Novolog Flexpen-Low Med 05/02/24 07:30 Active
Resistance]
See Protocol SC AC
Insulin Glargine Lantus [Lantus] 10 units Med 05/08/24 08:26 Active
Subcutaneous Insulin Syringe [Syringe-Insulin] 0 unit
SC HS
Lisinopril [Zestril] Med 04/28/24 21:45 Active
20 mg PO DAILYPRN PRN
Magnesium Hydroxide [Milk of Magnesia] Med 04/29/24 18:28 Active
30 ml PO QIDPRN PRN
Melatonin Med 04/30/24 20:58 Active
5 mg PO HSPRN PRN
Metformin Extended Release [Glucophage Xr Extended Med 04/29/24 08:00 Hold
Release]
1,000 mg PO BID AT 0800,1700
Miconazole Nitrate [Desenex/Mitrazol/Zeasorb] Med 04/29/24 20:00 Active
See Dose Instructions TOPICAL BID
Multivitamin [Theragran] Med 04/29/24 08:00 Active
1 tablet PO DAILY
Oxycodone [Roxicodone] Med 05/04/24 16:00 Active
5 mg PO Q4HPRN PRN
Rivaroxaban [Xarelto] Med 05/06/24 20:00 Active
2.5 mg PO BID
Rosuvastatin Calcium [Crestor] Med 04/29/24 18:00 Active
20 mg PO QPM
Sodium Hypochlorite [Dakin's Solution 0.125% 10/10 Med 04/30/24 08:00 Active
Strength]
See Dose Instructions TOPICAL DAILY
Tamsulosin [Flomax] Med 05/08/24 12:00 Active
0.4 mg PO DAILY
Vancomycin [Vancocin] 1,250 mg Med 04/29/24 06:00 Active
0.9% Sodium Chloride 250 ml [Nss] 250 ml
IV Q12H
Vit C/Vit E/Lutein/Min/[place]-3 [Ocuvite Softgel] Med 04/29/24 08:00 Active
2 cap PO DAILY
�
Vitals:�
Temp Pulse Resp BP Pulse Ox
97.8 F 72 16 149/70 99
05/08/24 11:43 05/08/24 11:43 05/08/24 11:43 05/08/24 11:43 05/08/24 11:43
Height 5 ft 11 in
Actual Weight 91.172 kg
Body Mass Index (BMI) 28.0
�
Physical Exam:�
General Appearance/Observation: Well-developed, well-nourished male in no apparent distress.�
Pain/Comfort Assessment: Mild right leg
Mood/Affect: Appropriate�
�
Integumentary/Operative Site:�Significant medial right lower extremity incisions with derik, right foot with Kerlix wrap, not visualized.
�
Eyes: Conjunctiva/Lids: normal���� Pupils: pupils equal round and reactive to light and Accommodation�
Ears/Nose/Throat: oral mucosa moist,� throat clear.������������ Lips/Teeth/Gums: normal�
Cardiovascular: Heart: regular, no murmur�
Respiratory: Respiratory Effort/Chest Expansion: normal������� Auscultation: Clear to auscultation bilaterally�
Gastrointestinal: abdomen not tender, no distension, normal abdominal bowel sounds
Genitourinary: Frey empty
Extremities:�Edema: Right lower extremity edema�cyanosis: None�Trophic�changes: None
�
Neurology Exam:
Orientation: Alert, Oriented to self, Time, Place�
Memory: Intact for recent medical concerns
Comprehension: Intact
Two step command: Intact
Cranial Nerves:
�� CNII:�Pupillary light reflex: Intact���
�� CN III, IV, : Extraocular muscles: Intact�
�� CN V:�Facial Sensation�at�Forehead: Intact,�Maxilla: Intact,�Mandible: Intact
�� CN VII:�Facial movement: Symmetric
�� CN VIII:�Hearing: Normal
�� CN IX/X:�Speech: Normal�Position of Uvula: Midline
�� CN XI:�Shoulder shrug: Symmetric
�� CN XII:�Tongue protrusion: Midline
Sensory:
�� Light touch: Absent for most of bilateral feet occasional minimal sensation laterally. Can feel ankles.
�
Musculoskeletal: Motor: (Manual muscle scale 0-5)�
Muscle SA EF WE EE FF FA HF KE DF EHL PF
Right� 5 5 5 1* 2* 4 4 4
Left 5 5 5 4 5 5 5 5
�
Tone: Normal in all extremities�
Range of Motion: Passively within functional limits in all extremities�
�
Lab Results
Laboratory Data
05/08/24 06:22
05/08/24 06:22
PT 16.2 Sec (11.4-14.6) H 05/05/24 04:26
INR 1.32 05/05/24 04:26
APTT 34.3 Sec (23.4-35.0) 05/05/24 04:26
Total Bilirubin 0.4 mg/dl (0.2-1.3) 04/29/24 06:54
AST 25 U/L (17-59) 04/29/24 06:54
ALT 27 U/L (0-50) 04/29/24 06:54
Alkaline Phosphatase 117 U/L (38-126) 04/29/24 06:54
Total Protein 6.0 g/dl (6.3-8.2) L 04/29/24 06:54
Albumin 3.4 g/dl (3.5-5.0) L 04/29/24 06:54
�
Diagnostic Results: as per HPI�
�
Assessment
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
hypercholesterolemia, subdural hematoma) s/p 05/04/2024 right lower extremity zxgic-eof-kdxe popliteal artery to peroneal artery and 05/05/2024 he had a debridement of the right heel with ADL and ambulatory dysfunction.
Plan�
PM&R PT/OT to increase independence with ADLs, improve balance, coordination, endurance, strength, mobility, community reintegration, decreased burden of care on others and family education.�
�
Diabetic foot infection with probable osteomyelitis of the right heel: Continue antibiotics for 6 weeks per ID. Will need vancomycin twice a day and ertapenem daily. Still with leukocytosis.
Status post right efffs-jcb-puqz popliteal artery to peroneal artery bypass: Monitor incisions, pain control
Right heel debridement: Stage IV diabetic heel wound with healing guarded per podiatry. Wound VAC. Ambulation decision with wound/wound VAC as per podiatry.
�
HTN: Lisinopril, monitor closely�
HLD: Statin�
Peripheral artery disease : Aspirin, statin
Uncontrolled diabetes type 2 with neuropathy: Accu-Cheks, insulin sliding scale, metformin, lantus.�
Nocturnal hypoxia: Oxygen at night, will need sleep study
Postoperative anemia: Continue to monitor.�
Pain: acetaminophen or oxycodone as needed.�
Bowel: Colace and Senna, PRN bisacodyl.�
Bladder: Flomax time void, PVRs, PRN straight cath.�
DVT Prophylaxis: Mechanical and heparin/apixaban. Sent message to Dr. Gayle to clarify need for both.
Pulmonary: Incentive spirometry�
Safety: Continue to reinforce assistance with all transfers.�
Code Status:� Full code
Dispo (date/plan/equipment needs): Home with family care.� Social history reviewed.�
Functional and Medical Goals:�Modified Independent with ADL�s, ambulation, transfers�
Discharge Destination: custodial facility given wounds, wound VAC, and need for prolonged antibiotics multiple times a day.
�
Summary of recommendations:
Discharge Destination:�custodial facility�
Diabetic foot infection with probable osteomyelitis of the right heel: Continue antibiotics for 6 weeks per ID. Will need vancomycin twice a day and ertapenem daily. Still with leukocytosis.
Status post right zxzye-qpr-unoy popliteal artery to peroneal artery bypass: Monitor incisions, pain control
Right heel debridement: Stage IV diabetic heel wound with healing guarded per podiatry. Wound VAC. Ambulation decision with wound/wound VAC as per podiatry.
HTN: Lisinopril, monitor closely�
HLD: Statin�
Peripheral artery disease : Aspirin, statin
Uncontrolled diabetes type 2 with neuropathy: Accu-Cheks, insulin sliding scale, metformin, lantus.�
Nocturnal hypoxia: Oxygen at night, will need sleep study
Postoperative anemia: Continue to monitor.�
Thank you for allowing me to care for your patient. Please contact me with any questions or concerns.
[2024-05-08 16:41] LABS: Glucose - Point of Care 291 mg/dl (70-99)
[2024-05-08] MEDS: CRESTOR 20 MG PO (17:24)
[2024-05-08] MEDS: HEPARIN SC (17:25)
[2024-05-08] MEDS: NOVOLOG FLEXPEN-LOW RESISTANCE 3 UNITS SC (17:27)
[2024-05-08] MEDS: MYLICON 80 MG PO (19:58)
[2024-05-08 21:22] LABS: Glucose - Point of Care 202 mg/dl (70-99)
[2024-05-08] MEDS: LANTUS 0.1 UNITS SC (21:45)
[2024-05-09 03:18] VITALS: BP 125/67
[2024-05-09] MEDS: VANCOCIN 275 MG IV ×2 (05:51→17:54)
[2024-05-09 06:00] VITALS: BMI 27.8
[2024-05-09 06:57] LABS: Glucose - Point of Care 195 mg/dl (70-99)
--- NOTE | 2024-05-09 07:22 | W.PN.VS ---
Today's Communication / Plan
-
as above
Assessment/Plan
-
Assessment: POD 5 right lower extremity above-knee popliteal artery to peroneal artery using ipsilateral non-reversed great saphenous vein
Plan:
Out of bed to chair/ambulate
Continue local wound care
Continue EDI drain, with documentation of I and O
Patient with urinary retention following Frey catheter requiring reinsertion added Flomax
disposition planning
Subjective Data
-
Date of Service: May 09, 2024
No complaints. Patient states he feels things are going well.
Objective Data
-
Vital Signs
Temp Pulse Resp BP Pulse Ox
97.9 F 78 18 125/67 97
05/09/24 03:18 05/09/24 03:18 05/09/24 03:18 05/09/24 03:18 05/09/24 03:18
Intake and Output
05/08/24 05/09/24 05/10/24
06:59 06:59 06:59
Intake Total 3140 / 3140 2120 / 2120
Output Total 2915 / 2915 2377 / 2377
Balance 225 / 225 -257 / -257
Intake:
Oral fluids 2240 / 2240 1720 / 1720
Amount of oral supplement(s) 240 / 240
consumed
IV fluids (Total) 60 / 60
IV piggybacks 900 / 900 100 / 100
Output:
Drain Output (Total)
Right Leg [place]
Urine, Frey 2900 / 2900 2350 / 2350
Calcium 8.6 mg/dl (8.4-10.2) 05/08/24 06:22
Total Bilirubin 0.4 mg/dl (0.2-1.3) 04/29/24 06:54
AST 25 U/L (17-59) 04/29/24 06:54
ALT 27 U/L (0-50) 04/29/24 06:54
Alkaline Phosphatase 117 U/L (38-126) 04/29/24 06:54
Total Protein 6.0 g/dl (6.3-8.2) L 04/29/24 06:54
Albumin 3.4 g/dl (3.5-5.0) L 04/29/24 06:54
Physical Exam
-
NAD
Some swelling to right leg
+biphasic PT signal
[2024-05-09 07:49] VITALS: BP 124/62
[2024-05-09] MEDS: NOVOLOG FLEXPEN-LOW RESISTANCE 1 UNITS SC (07:53)
[2024-05-09] MEDS: DESENEX/MITRAZOL/ZEASORB 1 APPLIC TOPICAL ×2 (07:55→19:48)
[2024-05-09] MEDS: OCUVITE SOFTGEL 2 CAP PO (07:55)
[2024-05-09] MEDS: COLACE PO ×2 (07:55→19:47)
[2024-05-09] MEDS: LOW STRENGTH ASPIRIN 81 MG PO (07:56)
[2024-05-09] MEDS: FLOMAX 0.4 MG PO (07:56)
[2024-05-09] MEDS: XARELTO 2.5 MG PO ×2 (07:56→19:47)
[2024-05-09] MEDS: THERAGRAN 1 TABLET PO (07:56)
[2024-05-09 09:32] LABS: Blood Urea Nitrogen 23 mg/dl (9-20); Calcium 8.3 mg/dl (8.4-10.2); Carbon Dioxide 29 mmol/L (22-30); Chloride 100 mmol/L (98-107); Estimated Creatinine Clearance 110 ml/min; Glucose 204 mg/dl (70-99); Potassium 4.5 mmol/L (3.5-5.1); Sodium 134 mmol/L (135-145); eGFR > 60.00
[2024-05-09 09:35] LABS: % Basophils 0.4 % (0-2); % Eosinophils 1.7 % (0-6); % Lymphocytes 13.7 % (20.5-51.1); % Monocytes 8.7 % (1.7-9.3); % Neutrophils 72.5 % (42.2-75.2); Absolute Eosinophils 0.2 10^3/uL (0-0.7); Absolute Immature Granulocytes 0.3 10^3/uL (0-0.05); Absolute Lymphocytes 1.4 10^3/uL (1.2-3.4); Absolute Monocytes 0.9 10^3/uL (0.1-0.6); Absolute Neutrophils 7.4 10^3/uL (1.4-6.5); Hematocrit 31.8 % (39.0-52.0); Hemoglobin 10.6 g/dL (13.0-18.0); Mean Corp Hgb Conc. 33.3 g/dL (33.0-37.0); Mean Corpuscular Hgb 28.5 pg (27.0-31.0); Mean Corpuscular Volume 85.5 fL (80.0-94.0); Mean Platelet Volume 9.3 fL (7.4-10.4); Nucleated Red Blood Cells % 0 % (-); Platelet Count 316 10^3/uL (130-400); Red Blood Cell Count 3.72 10^6/uL (4.70-6.10); Red Cell Dist. Width 12.7 % (11.5-14.5); White Blood Cell Count 10.1 10^3/uL (4.8-10.8)
--- NOTE | 2024-05-09 10:45 | PHA.VAN.FU ---
Vancomycin Assessment / Plan
- Assessment
Renal Function: Stable (0.6>0.6)
WBC's are: Trending Down (13.4>10.1)
In the past 24 hrs, patient has been: Afebrile
Concomitant Antimicrobials: Ertapenem
- Dosing Plan
Continue: Vancomycin 1250mg IV Q12hrs
- Monitoring Plan
No level(s) ordered at this time: Will order levels if patient remains in the hospital
- Follow Up
Pharmacy will continue to follow.
Vancomycin Follow UP
- -
Patient Age: 79
Patient Sex: Male
Vancomycin Day #: 12
Indication: Bone And Joint
Requesting Provider: Dr. Stiles / Chitra
Pertinent Antimicrobial Allergies:
NKDA
Height / Weight:
Height 5 ft 11 in
Actual Weight 90.22 kg
IBW in k.3
Adjusted BW in k.5
Pertinent Past Medical History: DM 2, PVD
- Vital Signs / Lab Results
Temp Pulse Resp BP Pulse Ox
97.7 F 74 16 124/62 96
05/09/24 07:49 05/09/24 07:49 05/09/24 07:49 05/09/24 07:49 05/09/24 08:00
Lab Results - Hematology
05/07/24 05/08/24 05/09/24
05: 06:22 09:02
WBC 13.1 H 13.4 H 10.1
Lab Results - Chemistry
05/07/24 05/08/24 05/09/24
05: 06:22 09:02
BUN 23 H 24 H 23 H
Creatinine 0.6 L 0.6 L 0.6 L
Estimated Creat Clear 110 110 110
Therapeutic Drug Monitoring
Vancomycin Peak 20.9 ug/ml (18-) 05/06/24 23:26
Vancomycin Trough 14.5 ug/ml (5-20) 05/07/24 05:24
--- NOTE | 2024-05-09 10:47 | W.PN.ID1 ---
Date of Service
Date of Service: May 09, 2024
Today's Communication
Continue antibiotics per
Assessment / Plan
Diabetic Foot Infection
Probable Osteomyelitis of the R heel
S/p Right lower extremity above-knee popliteal artery to peroneal artery 05/04
PAD/CAD
History of poor wound healing
- wound cultures - ESBL E coli and Diphtheroid
- QTc 435
- s/p revascularization
- wound vac placement
- patient at high risk for progression of infection to osteomyelitis, continue 6 week course of IV ertapenem and vancomycin 05/04-06/14. Dr. Buenrostro sent script to human services case manager, original on chart
- picc placed
- follow clinically
Chief Complaint
-: Other (diabetic foot infection)
Subjective / Review of Systems
Review of Systems: No Fever and No Chills
Vital Signs / Physical Exam
Vital Signs
Vital Signs
Temp Pulse Resp BP Pulse Ox
97.7 F 74 16 124/62 96
05/09/24 07:49 05/09/24 07:49 05/09/24 07:49 05/09/24 07:49 05/09/24 08:00
Physical Exam
Constitutional: No Acute Distress, Comfortable and Non-toxic
Eyes: Sclera Anicteric
Pulmonary: Non Labored
Extremities: Edema (RLE 2+ edema)
Wound: Other (Right foot dressing intact. VAC in place. Right leg incisional wound C/D/I with derik in place.)
Neurological: Awake and Alert
Psychological: Calm
Lines: PICC (RUE)
Objective Data
Lab Data
Lab Results
05/09/24 09:02
05/09/24 09:02
PT 16.2 Sec (11.4-14.6) H 05/05/24 04:26
INR 1.32 07/30/24 04:26
APTT 34.3 Sec (23.4-35.0) 05/05/24 04:26
Estimated Creat Clear 110 ml/min 05/09/24 09:02
Total Bilirubin 0.4 mg/dl (0.2-1.3) 04/29/24 06:54
AST 25 U/L (17-59) 04/29/24 06:54
ALT 27 U/L (0-50) 04/29/24 06:54
Alkaline Phosphatase 117 U/L (38-126) 04/29/24 06:54
Most recent labs reviewed.
Micro Results:
04/28/24 19:49 Wound Culture - Final
Heel - Right Escherichia coli - ESBL
Gram Stain - Final
04/28/24 22:49 MRSA Screen - Final
Nose No Methicillin Resistant Staphylococcus aureus isolated.
SPEC #: [id number] GLORY: 04/28/24
SOURCE: HEEL
SPDESC: Right
ORDERED: Wound/Other
Wound/abscess/other Cult Final
Many Escherichia coli - ESBL*
Few Diptheroids
Organism 1 Escherichia coli - ESBL
1. Escherichia coli - ESBL
M.I.C. RX
--------- ---
Amoxicillin/Potas. Clavulanate >16/8 R
Ampicillin >16 R
Ampicillin/Sulbactam <=8/4 S
Cefazolin >16 R
Cefepime <=2 S
Ceftazidime 8 I
Ceftriaxone >2 R
Ertapenem <=0.5 S
Ciprofloxacin <=0.25 S
Gentamicin <=4 S
Levofloxacin <=0.5 S
Meropenem <=1 S
Piperacillin/Tazobactam <=16 S
Tobramycin <=4 S
Trimethoprim/Sulfamethoxazole <=2/38 S
--- NOTE | 2024-05-09 10:54 | W.PN.HOSP.TC ---
Today's Communication/Plan
-
resume MFM
keep Lantus at 10 units; titrate as needed
continue wound care and IV Abx, add probiotic
DC to a SNF when bed available
Assessment / Plan
Assessment / Plan
Assessment:
Right heel ulcer, possible osteomyelitis
- MRI: Focal small soft tissue defect involving the superficial plantar soft tissues, inferior to the calcaneus. No evidence of collection to suggest abscess. No evidence for osteo myelitis. Intermediate T1-weighted signal within the subcutaneous
soft tissues off the plantar aspect of the posterior and inferior calcaneus, without significant enhancement postcontrast. This could represent soft tissue callus and/or relatively devascularize soft tissues. No evidence of collection. No evidence
for osteomyelitis of the calcaneus. Numerous prominent tortuous enhancing varicose veins within the medial soft tissues of the right lower leg and ankle.
- continue Vanco (requires intensive monitoring of levels) and Ertapenem per ID x 6 weeks. ESBL in culture. WBC stable
- s/p Right Distal Popliteal - Peroneal artery bypass (SVG) on 05/04. OP Vascular f/u
- s/p excisional bedside debridement 05/06 by Podiatry, OP f/u
- continue wound care per Podiatry/Vascular
- wound VAC being applied
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
- improved with slower infusion
LUE Vancomycin infiltrate
- on Hylenex protocol with VATS team
Nocturnal hypoxia
- desats nocturnally to 78%
- Patient is in need of oxygen at 2 liters/minute via nasal cannula continuously nocturnally due to pulse oximetry of 78% on room air at rest. Oxygen will help to improve hypoxemia. Patient is mobile within the home. DuoNeb therapy has been tried
and is ineffective in treating hypoxemia related symptoms. Oxygen is needed to improve symptoms.
- possibly has sleep apnea; sleep study outpatient recommended
Anemia due to acute blood loss from OR and hemodilution
- monitor
History of osteomyelitis status post amputation of left third toe, right second/third toes
Peripheral vascular disease status post bypass of left lower extremity/stent of right lower extremity
Type 2 diabetes
- hypoglycemic from poor appetite post-op
- resume Lantus at 10 units
- resume Metformin
- Hold repaglinide, dapagliflozin until post-SNF and post-IV Abx if Metformin and Insulin able to achieve euglycemia. f/u Endocrine
- insulin sliding scale
Diabetic neuropathy
Hyperlipidemia
- continue statin
History of subdural hematoma
Essential hypertension
- continue lisinopril
DVT ppx: Heparin
Code: Full
Anticipated Discharge: 24 - 48 hours
Subjective/Interval History
-
Date of Service: May 09, 2024
blood sugars remains high, patient asking for Metformin to resume
Objective Data
-
Labs:
Laboratory Results
05/09/24
09:02
WBC 10.1
Hgb 10.6 L
Hct 31.8 L
Plt Count 316
Sodium 134 L
Potassium 4.5
Chloride 100
Carbon Dioxide 29
BUN 23 H
Creatinine 0.6 L
Glucose 204 H
Calcium 8.3 L
Vital Signs:
Vital Signs
Temp Pulse Resp BP Pulse Ox
97.7 F 74 16 124/62 96
05/09/24 07:49 05/09/24 07:49 05/09/24 07:49 05/09/24 07:49 05/09/24 08:00
I&O
05/08/24 05/09/24 05/10/24
06:59 06:59 06:59
Intake Total 3140 / 3140 2120 / 2120
Output Total 2915 / 2915 2377 / 2377
Balance 225 / 225 -257 / -257
Physical Exam
-
General: No Apparent Distress
HEENT: Normocephalic and Atraumatic
Respiratory: Negative Wheezes
Cardiac: Regular Rhythm and S1/S2
GI: Soft and Nontender
Genito-urinary: No Costovertebral Tender
Musculoskeletal: No Edema
Neuro: AO x 3
Psych: Calm
Data Reviewed
-
Total Time Spent with Patient (in minutes): 51
Labs: Labs Reviewed by me
[2024-05-09] MEDS: DAKIN'S SOLUTION 0.125% 1/4 STRENGTH TOPICAL (11:21)
[2024-05-09] MEDS: SANTYL OINTMENT TOPICAL (11:21)
[2024-05-09 11:58] LABS: Glucose - Point of Care 330 mg/dl (70-99)
[2024-05-09 12:04] VITALS: BP 121/55
[2024-05-09] MEDS: NOVOLOG FLEXPEN-LOW RESISTANCE 4 UNITS SC (12:26)
[2024-05-09] MEDS: GLUCOPHAGE 1000 MG PO ×2 (12:27→17:18)
[2024-05-09] MEDS: VISBIOME 1 CAP PO (12:27)
[2024-05-09] MEDS: INVANZ 60 MG IV (14:22)
--- NOTE | 2024-05-09 14:51 | W.PN.POD ---
Today's Communication
Today's Communication
Continue wound vac therapy. Will DC vac and re eval wound bed Saturday05/11/24.
Assessment / Plan
-
1-DM2 with PAD- POD #5 S/P Right lower extremity above-knee popliteal artery to peroneal artery
2-DM2 with DPN and LOPS
3-Gangrene to the right medial heel w cellulitis/possible OM - Appreciate ID input
4-Stage 4/diabetic heel wound S/P full thickness debridement 05/06/24- wound vac in place.
Subjective
Chief Complaint
right heel wound/poss OM S/P RLE bypass
Subjective
Denies F/C/N/V
Objective
Temp Pulse Resp BP Pulse Ox
97.5 F 81 18 121/55 96
05/09/24 12:04 05/09/24 12:04 05/09/24 12:04 05/09/24 12:04 05/09/24 12:04
05/09/24 09:02
05/09/24 09:02
Vital Signs and Lab results were reviewed.
Inspection: Other (Wound VAC right heel-in place and functioning with seal intact)
Review of Systems
Review of Systems
Review of Systems: No Fever, No Chills, No Headache, No Diarrhea and No Skin Rash
Physical Exam
Physical Exam
General: No Apparent Distress and Conversant
Musculoskeletal: Edema, Right Lower Extrem
Skin: Warm and Dry
Neuro: Protective Sensation Absent
Vascular: Capillary Refill Delayed and Pedal Hair Absent
Dorsalis Pedis: Diminished
Posterior Tibialis: Diminished
[2024-05-09 15:52] VITALS: BP 129/65
[2024-05-09 17:17] LABS: Glucose - Point of Care 200 mg/dl (70-99)
[2024-05-09] MEDS: NOVOLOG FLEXPEN-LOW RESISTANCE 2 UNITS SC (17:17)
[2024-05-09] MEDS: CRESTOR 20 MG PO (17:54)
[2024-05-09 19:12] VITALS: BP 122/58
[2024-05-09 20:56] LABS: Glucose - Point of Care 191 mg/dl (70-99)
[2024-05-09] MEDS: LANTUS 0.1 UNITS SC (21:21)
[2024-05-09] MEDS: ROXICODONE 5 MG PO (21:28)
[2024-05-09] MEDS: MELATONIN 5 MG PO (22:59)
[2024-05-09 23:12] VITALS: BP 131/68
[2024-05-10 03:35] VITALS: BP 128/61
[2024-05-10 05:01] LABS: Hematocrit 30.3 % (39.0-52.0); Hemoglobin 10.1 g/dL (13.0-18.0); Mean Corp Hgb Conc. 33.3 g/dL (33.0-37.0); Mean Corpuscular Hgb 28.9 pg (27.0-31.0); Mean Corpuscular Volume 86.6 fL (80.0-94.0); Mean Platelet Volume 9.4 fL (7.4-10.4); Platelet Count 336 10^3/uL (130-400); Red Cell Dist. Width 12.8 % (11.5-14.5); White Blood Cell Count 10.5 10^3/uL (4.8-10.8)
[2024-05-10] MEDS: VANCOCIN 275 MG IV ×2 (05:27→17:53)
[2024-05-10 05:36] LABS: Blood Urea Nitrogen 28 mg/dl (9-20); Calcium 8.2 mg/dl (8.4-10.2); Carbon Dioxide 30 mmol/L (22-30); Chloride 100 mmol/L (98-107); Estimated Creatinine Clearance 110 ml/min; Glucose 182 mg/dl (70-99); Sodium 134 mmol/L (135-145); eGFR > 60.00
[2024-05-10 06:00] VITALS: BMI 27.7
[2024-05-10 07:19] LABS: Glucose - Point of Care 202 mg/dl (70-99)
--- NOTE | 2024-05-10 07:33 | PHA.VAN.FU ---
Vancomycin Assessment / Plan
- Assessment
Renal Function: Stable (0.6>0.6)
WBC's are: Trending Up (10.1>10.5)
In the past 24 hrs, patient has been: Afebrile
Concomitant Antimicrobials: Ertapenem
- Dosing Plan
Continue: Vancomycin 1250mg IV Q12hrs administer over 2hrs due to previous red man's
- Monitoring Plan
Peak Level: Ordered for 05/10/24 at 21:30
Trough Level: Ordered for 05/11/24 at 05:30
- Follow Up
Pharmacy will continue to follow.
Vancomycin Follow UP
- -
Patient Age: 79
Patient Sex: Male
Vancomycin Day #: 13
Indication: Bone And Joint
Requesting Provider: Dr. Stiles / Chitra
Pertinent Antimicrobial Allergies:
NKDA
Height / Weight:
Height 5 ft 11 in
Actual Weight 90.174 kg
IBW in k.3
Adjusted BW in k.5
Pertinent Past Medical History: DM 2, PVD
- Vital Signs / Lab Results
Temp Pulse Resp BP Pulse Ox
97.8 F 69 20 128/61 97
05/10/24 03:35 05/10/24 03:35 05/10/24 03:35 05/10/24 03:35 05/10/24 03:35
Lab Results - Hematology
05/08/24 05/09/24 05/10/24
06:22 09:02 04:20
WBC 13.4 H 10.1 10.5
Lab Results - Chemistry
05/08/24 05/09/24 05/10/24
06:22 09:02 04:21
BUN 24 H 23 H 28 H
Creatinine 0.6 L 0.6 L 0.6 L
Estimated Creat Clear 110 110 110
Therapeutic Drug Monitoring
Vancomycin Peak 20.9 ug/ml (18-26) 05/06/24 23:26
Vancomycin Trough 14.5 ug/ml (5-20) 05/07/24 05:24
[2024-05-10 07:47] VITALS: BP 145/66
[2024-05-10] MEDS: LOW STRENGTH ASPIRIN 81 MG PO (08:10)
[2024-05-10] MEDS: XARELTO 2.5 MG PO ×2 (08:10→21:36)
[2024-05-10] MEDS: GLUCOPHAGE 1000 MG PO ×2 (08:10→17:53)
[2024-05-10] MEDS: THERAGRAN 1 TABLET PO (08:10)
[2024-05-10] MEDS: OCUVITE SOFTGEL 2 CAP PO (08:10)
[2024-05-10] MEDS: VISBIOME 1 CAP PO (08:10)
[2024-05-10] MEDS: FLOMAX 0.4 MG PO (08:10)
[2024-05-10] MEDS: COLACE PO ×2 (08:11→21:36)
[2024-05-10] MEDS: NOVOLOG FLEXPEN-LOW RESISTANCE 2 UNITS SC (08:13)
--- NOTE | 2024-05-10 10:36 | W.PN.ID1 ---
Date of Service
Date of Service: May 10, 2024
Today's Communication
Continue abx.
Assessment / Plan
Diabetic Foot Infection
Suspected Osteomyelitis of the (R) heel
S/p Right lower extremity above-knee popliteal artery to peroneal artery 05/04
PAD
- s/p RLE revascularization (05/04/24)
CAD
History of poor wound healing
- wound cultures - ESBL E. coli and Diphtheroid
- QTc 435
- wound vac placement
- patient at high risk for progression of infection to osteomyelitis, continue 6 week course of IV ertapenem and vancomycin 05/04-06/14. Dr. Buenrostro sent script to upper caser, original on chart
- PICC in place
- follow clinically
Chief Complaint
-: Other (diabetic foot infection)
Subjective / Review of Systems
Patient seen and examined. Reports no issues today. Denies pain. No difficulty with antibiotics.
Review of Systems: No Fever, No Chills, No Cough and No Abdominal Pain
Vital Signs / Physical Exam
Vital Signs
Vital Signs
Temp Pulse Resp BP Pulse Ox
98.2 F 69 18 145/66 98
05/10/24 07:47 05/10/24 07:47 05/10/24 07:47 05/10/24 07:47 05/10/24 07:47
Physical Exam
Constitutional: No Acute Distress, Comfortable and Non-toxic
Eyes: Sclera Anicteric
Cardiovascular: S1/S2; Negative S3/S4
Pulmonary: Non Labored
Gastrointestinal: Non Distended
Extremities: Edema (RLE 2+ edema) and Other
Wound: Other (Right foot dressing intact. VAC in place. Right leg incisional wound C/D/I with derik in place. EDI in place with scant drainage.)
Neurological: Awake and Alert
Psychological: Calm
Lines: PICC (RUE)
Objective Data
Lab Data
Lab Results
05/10/24 04:20
05/10/24 04:21
PT 16.2 Sec (11.4-14.6) H 05/05/24 04:26
INR 1.32 05/05/24 04:26
APTT 34.3 Sec (23.4-35.0) 05/05/24 04:26
Estimated Creat Clear 110 ml/min 05/10/24 04:21
Total Bilirubin 0.4 mg/dl (0.2-1.3) 04/29/24 06:54
AST 25 U/L (17-59) 04/29/24 06:54
ALT 27 U/L (0-50) 04/29/24 06:54
Alkaline Phosphatase 117 U/L (38-126) 04/29/24 06:54
Most recent labs reviewed.
Micro Results:
04/28/24 19:49 Wound Culture - Final
Heel - Right Escherichia coli - ESBL
Gram Stain - Final
04/28/24 22:49 MRSA Screen - Final
Nose No Methicillin Resistant Staphylococcus aureus isolated.
SPEC #: [id number] GLORY: 04/28/24
SOURCE: HEEL
SPDESC: Right
ORDERED: Wound/Other
Wound/abscess/other Cult Final
Many Escherichia coli - ESBL*
Few Diptheroids
Organism 1 Escherichia coli - ESBL
1. Escherichia coli - ESBL
M.I.C. RX
--------- ---
Amoxicillin/Potas. Clavulanate >16/8 R
Ampicillin >16 R
Ampicillin/Sulbactam <=8/4 S
Cefazolin >16 R
Cefepime <=2 S
Ceftazidime 8 I
Ceftriaxone >2 R
Ertapenem <=0.5 S
Ciprofloxacin <=0.25 S
Gentamicin <=4 S
Levofloxacin <=0.5 S
Meropenem <=1 S
Piperacillin/Tazobactam <=16 S
Tobramycin <=4 S
Trimethoprim/Sulfamethoxazole <=2/38 S
[2024-05-10] MEDS: SANTYL OINTMENT 1 APPLIC TOPICAL (11:03)
[2024-05-10] MEDS: DESENEX/MITRAZOL/ZEASORB 1 APPLIC TOPICAL ×2 (11:03→21:37)
[2024-05-10] MEDS: DAKIN'S SOLUTION 0.125% 1/4 STRENGTH 473 ML TOPICAL (11:03)
[2024-05-10 11:46] VITALS: BP 132/63
[2024-05-10 12:05] LABS: Glucose - Point of Care 250 mg/dl (70-99)
[2024-05-10] MEDS: NOVOLOG FLEXPEN-LOW RESISTANCE 3 UNITS SC (13:53)
[2024-05-10] MEDS: INVANZ 60 MG IV (13:59)
--- NOTE | 2024-05-10 14:12 | W.PN.HOSP.TC ---
Today's Communication/Plan
-
re-evaluate wounds with vascular/podiatry 05/11
JET DYEING MACHINE OPERATOR DM management consult
DC Planning to a SNF
Assessment / Plan
Assessment / Plan
Assessment:
Right heel ulcer, possible osteomyelitis
- MRI: Focal small soft tissue defect involving the superficial plantar soft tissues, inferior to the calcaneus. No evidence of collection to suggest abscess. No evidence for osteo myelitis. Intermediate T1-weighted signal within the subcutaneous
soft tissues off the plantar aspect of the posterior and inferior calcaneus, without significant enhancement postcontrast. This could represent soft tissue callus and/or relatively devascularize soft tissues. No evidence of collection. No evidence
for osteomyelitis of the calcaneus. Numerous prominent tortuous enhancing varicose veins within the medial soft tissues of the right lower leg and ankle.
- continue Vanco (requires intensive monitoring of levels) and Ertapenem per ID x 6 weeks. ESBL in culture. WBC stable
- s/p Right Distal Popliteal - Peroneal artery bypass (SVG) on 05/04. OP Vascular f/u
- s/p excisional bedside debridement 05/06 by Podiatry, OP f/u
- continue wound care per Podiatry/Vascular
- wound VAC being applied
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
- improved with slower infusion
LUE Vancomycin infiltrate
- on Hylenex protocol with VATS team
Nocturnal hypoxia
- desats nocturnally to 78%
- Patient is in need of oxygen at 2 liters/minute via nasal cannula continuously nocturnally due to pulse oximetry of 78% on room air at rest. Oxygen will help to improve hypoxemia. Patient is mobile within the home. DuoNeb therapy has been tried
and is ineffective in treating hypoxemia related symptoms. Oxygen is needed to improve symptoms.
- possibly has sleep apnea; sleep study outpatient recommended
Anemia due to acute blood loss from OR and hemodilution
- monitor
History of osteomyelitis status post amputation of left third toe, right second/third toes
Peripheral vascular disease status post bypass of left lower extremity/stent of right lower extremity
Type 2 diabetes
- hypoglycemic from poor appetite post-op
- insulin sliding scale
- resume Lantus at 12 units
- resume Metformin
- JET DYEING MACHINE OPERATOR consulted
- Hold repaglinide, dapagliflozin until post-SNF and post-IV Abx if Metformin and Insulin able to achieve euglycemia. f/u Endocrine OP
Diabetic neuropathy
Hyperlipidemia
- continue statin
History of subdural hematoma
Essential hypertension
- continue lisinopril
DVT ppx: Heparin
Code: Full
Anticipated Discharge: > 48 hours
Subjective/Interval History
-
Date of Service: May 10, 2024
no new complaints
VAC remains in place
Objective Data
-
Labs:
Laboratory Results
05/10/24 05/10/24
04:20 04:21
WBC 10.5
Hgb 10.1 L
Hct 30.3 L
Plt Count 336
Sodium 134 L
Potassium 5.0
Chloride 100
Carbon Dioxide 30
BUN 28 H
Creatinine 0.6 L
Glucose 182 H
Calcium 8.2 L
Vital Signs:
Vital Signs
Temp Pulse Resp BP Pulse Ox
98.2 F 73 18 132/63 98
05/10/24 11:46 05/10/24 11:46 05/10/24 11:46 05/10/24 11:46 05/10/24 11:46
I&O
05/09/24 05/10/24 05/11/24
06:59 06:59 06:59
Intake Total 2119
Output Total 2376 / 2376
Balance -257 / -257 -80 / -80
Physical Exam
-
General: No Apparent Distress
HEENT: Normocephalic
Respiratory: Negative Wheezes
Cardiac: Regular Rhythm; Negative S1/S2
GI: Soft
Genito-urinary: No Costovertebral Tender
Musculoskeletal: Other (RLE Wound vac in place)
Neuro: AO x 3
Psych: Calm
Data Reviewed
-
Total Time Spent with Patient (in minutes): 41
Labs: Labs Reviewed by me
[2024-05-10 15:57] VITALS: BP 131/64
[2024-05-10 17:13] LABS: Glucose - Point of Care 189 mg/dl (70-99)
[2024-05-10] MEDS: NOVOLOG FLEXPEN-LOW RESISTANCE 1 UNITS SC (17:53)
[2024-05-10] MEDS: CRESTOR 20 MG PO (17:53)
[2024-05-10 19:05] VITALS: BP 147/70
[2024-05-10] MEDS: MYLICON 80 MG PO (21:37)
[2024-05-10 21:45] LABS: Glucose - Point of Care 287 mg/dl (70-99)
[2024-05-10] MEDS: LANTUS SC (21:55)
[2024-05-10] MEDS: LANTUS 0.12 UNITS SC (22:33)
[2024-05-10 22:37] LABS: Vancomycin Peak 24.1 ug/ml (18-26)
[2024-05-10 23:19] VITALS: BP 138/60
[2024-05-11 03:04] VITALS: BP 134/67
[2024-05-11 05:01] VITALS: BMI 27.6
[2024-05-11 06:48] LABS: Hematocrit 31.3 % (39.0-52.0); Hemoglobin 10.3 g/dL (13.0-18.0); Mean Corp Hgb Conc. 32.9 g/dL (33.0-37.0); Mean Corpuscular Hgb 28.5 pg (27.0-31.0); Mean Corpuscular Volume 86.5 fL (80.0-94.0); Mean Platelet Volume 9.3 fL (7.4-10.4); Platelet Count 335 10^3/uL (130-400); Red Blood Cell Count 3.62 10^6/uL (4.70-6.10); Red Cell Dist. Width 12.9 % (11.5-14.5); White Blood Cell Count 10.1 10^3/uL (4.8-10.8)
[2024-05-11 06:51] LABS: Blood Urea Nitrogen 25 mg/dl (9-20); Calcium 8.5 mg/dl (8.4-10.2); Carbon Dioxide 26 mmol/L (22-30); Chloride 103 mmol/L (98-107); Estimated Creatinine Clearance 110 ml/min; Glucose 192 mg/dl (70-99); Potassium 4.7 mmol/L (3.5-5.1); Sodium 134 mmol/L (135-145); eGFR > 60.00
[2024-05-11 06:55] LABS: Vancomycin Trough 16.5 ug/ml (5-20)
[2024-05-11 07:00] VITALS: BP 141/65
[2024-05-11] MEDS: VANCOCIN 275 MG IV ×2 (07:27→17:55)
--- NOTE | 2024-05-11 07:30 | W.PN.POD ---
Today's Communication
Today's Communication
Wound vac was removed, wound eval w/Dr Nicole at bedside. Wound bed is not demonstrating much viability and no granulation is presently noted.
I have discussed with the patient (and his daughter Jany by phone) regarding present condition of wound. She would like to consider HBOT. I am unsure if her is a candidate or where this would be done considering her will be going to SNF. Will
continue with Wound VAC therapy and re eval/follow closely and if there is no change to wound appearance, will change treatment plan. Patient understands it may take time to see any changes post revasc and that it still may not heal, which could
lead to BKA.
Assessment / Plan
-
1-DM2 with PAD- S/P successful Right lower extremity above-knee popliteal artery to peroneal artery
2-DM2 with DPN and LOPS
3-Stage 4/diabetic heel wound S/P full thickness debridement 05/06/24- wound vac therapy
Subjective
Chief Complaint
right heel non healing wound
Subjective
PAtient states he has no pain or discomfort to the RLE/heel. No F/C/N/V
Objective
Temp Pulse Resp BP Pulse Ox
98.5 F 76 18 129/56 95
05/11/24 11:00 05/11/24 11:00 05/11/24 11:00 05/11/24 11:00 05/11/24 11:00
05/11/24 06:23
05/11/24 06:23
Vital Signs and Lab results were reviewed.
Inspection: Cellulitis (resolved), Inflammation and Ulcer (right heel-VAC was removed and wound bed appears non viable, little granulation at periphery, no odor or purulence. Calcaneus with fascial covering exposed w/o change)
Review of Systems
Review of Systems
Review of Systems: No Fever and No Chills
Physical Exam
Physical Exam
General: No Apparent Distress, Comfortable and Conversant
Musculoskeletal: No Clubbing
Skin: Warm and Dry
Neuro: AO x 3 and Protective Sensation Absent
Vascular: Capillary Refill Delayed and Pedal Hair Absent
Dorsalis Pedis: Diminished
Posterior Tibialis: Diminished
--- NOTE | 2024-05-11 07:43 | W.PN.VS ---
Addendum entered and electronically signed by Leobardo Morales MD 05/11/24 08:14:
Addendum good graft function on exam, 2+ graft pulse palpable.
Addendum entered and electronically signed by Leobardo Morales MD 05/11/24 08:13:
Seen and examined with ZEKE Lacey. Agree with findings and plan as noted below.
Original Note:
Today's Communication / Plan
-
Seen and assessed with Dr. Morales
Assessment/Plan
-
Assessment: POD 7 right lower extremity above-knee popliteal artery to peroneal artery using ipsilateral non-reversed great saphenous vein
Plan:
Out of bed to chair/ambulate
Wound VAC per podiatry
Continue EDI drain for now, if patient is leaving today I may DC before he goes
disposition planning
Subjective Data
-
Date of Service: May 11, 2024
Patient seen at bedside this a.m. with Dr. Morales. Patient offers no complaints this time. No events overnight.
Objective Data
-
Vital Signs
Temp Pulse Resp BP Pulse Ox
98.2 F 77 16 134/67 97
05/11/24 03:04 05/11/24 03:04 05/11/24 03:04 05/11/24 03:04 05/11/24 03:04
Intake and Output
05/10/24 05/11/24 05/12/24
06:59 06:59 06:59
Intake Total 1979 1520 / 1520
Output Total 2059 221 / 221
Balance -80 / -80 -690 / -690
Intake:
Oral fluids 1979 1280 / 1280
Amount of oral supplement(s) 240 / 240
consumed
Output:
Drain Output (Total)
Right Leg Roland-Carrasquillo
Urine, Frey 2049 / 2199
Lab Results
05/11/24 06:23
05/11/24 06:23
Calcium 8.5 mg/dl (8.4-10.2) 05/11/24 06:23
Total Bilirubin 0.4 mg/dl (0.2-1.3) 04/29/24 06:54
AST 25 U/L (17-59) 04/29/24 06:54
ALT 27 U/L (0-50) 04/29/24 06:54
Alkaline Phosphatase 117 U/L (38-126) 04/29/24 06:54
Total Protein 6.0 g/dl (6.3-8.2) L 04/29/24 06:54
Albumin 3.4 g/dl (3.5-5.0) L 04/29/24 06:54
Physical Exam
-
No apparent distress, resting in bed comfortably
No tachycardia
No dyspnea on room air
ABD flat, nontender, nondistended
Right leg sites clean, dry, intact. No drainage noted, EDI drain with serosanguineous output
Right foot warm, pink
PT Doppler signal present
--- NOTE | 2024-05-11 07:56 | PHA.VAN.FU ---
Vancomycin Assessment / Plan
- Assessment
Renal Function: Stable
WBC's are: WNL
In the past 24 hrs, patient has been: Afebrile
Concomitant Antimicrobials: ertapenem
- Assessment - Therapeutic Drug Monitoring
Extrapolated Cmax (mcg/mL): 26.6
Peak level was drawn: Appropriately (drawn ~2.2H after end of previous infusion)
Extrapolated Cmin (mcg/mL): 16.9
Trough Drawn: Appropriately
Levels were drawn: At steady state (levels drawn after 24th maintenance dose)
Calculated AUC (mcg*h/mL): 514
Calculated ke: 0.0455
Calculated half life (H): 15.2
Calculated Vd (L): 106 (~1.2 L/kg)
Calculated Vanc CL (ml/min): 81
- Dosing Plan
Continue: Vanc 1250mg Q12H
Half-life increased and greater than current dosing interval
Trough relatively stable - previous troughs were 16.4 and 14.5
Will continue Q12H dosing for now - may require Q24H interval if has accumulation
- Monitoring Plan
Level(s) appropriate: Recheck trough at minimum of weekly intervals, Repeat sooner for changes in renal function or clinical status
Next Level Due (Date): ~05/18, may consider later this week to assess for accumulation
- Follow Up
Pharmacy will continue to follow.
Vancomycin Follow UP
- -
Patient Age: 79
Patient Sex: Male
Vancomycin Day #: 14
Indication: Bone And Joint
Requesting Provider: Dr. Stiles / Chitra
Pertinent Antimicrobial Allergies:
NKDA
Height / Weight:
Height 5 ft 11 in
Actual Weight 89.721 kg
IBW in k.3
Adjusted BW in k.5
Pertinent Past Medical History: DM 2, PVD
- Vital Signs / Lab Results
Temp Pulse Resp BP Pulse Ox
98.2 F 77 16 134/67 97
05/11/24 03:04 05/11/24 03:04 05/11/24 03:04 05/11/24 03:04 05/11/24 03:04
Lab Results - Hematology
05/09/24 05/10/24 05/11/24
09:02 04:20 06:23
WBC 10.1 10.5 10.1
Lab Results - Chemistry
05/09/24 05/10/24 05/11/24
09:02 04:21 06:23
BUN 23 H 28 H 25 H
Creatinine 0.6 L 0.6 L 0.6 L
Estimated Creat Clear 110 110 110
Therapeutic Drug Monitoring
Vancomycin Peak 24.1 ug/ml (18-26) 05/10/24 22:03
Vancomycin Trough 16.5 ug/ml (5-20) 05/11/24 06:23
[2024-05-11 07:58] LABS: Glucose - Point of Care 194 mg/dl (70-99)
--- NOTE | 2024-05-11 08:34 | PN.DE.MGMTRT ---
Insulin Management
- -
05/11/2024: Diabetes Management Consult
79 year old male admitted 04/28 with Right heel wound, possible osteomyelitis. PMH: PVD, CAD, HTN, HLD, PVD, prior amputation of R 2nd & 3rd toe and left 3rd toe, s/p bypass of LLE, prior stent to RLE, subdural hematoma, Diabetic Neuropathy and
T2DM.
Now POD #7 s/p RLE above-knee popliteal artery to peroneal artery using ipsilateral non-reversed great saphenous vein.
Diabetes management Consult requested on 05/10. Was taking Ozempic 1mg Q Mondays, Toujeo 20 units daily, Xigduo BID and Repaglinide 1mg TID. A1C 7.9%, Cr 0.6, eGFR >60.
Pt awake, A/O x3, sitting up in bed, offers no complaints, able to discuss diabetes mgt
Pt states that his blood sugar is uncontrolled because he is getting very small doses of insulin compared to what he takes at home.
Current diabetes regimen includes: Lantus 12 units @ HS and Metformin 1000mg BID. Noted Farxiga 5mg BID on hold
05/10 Premeal Glucose range 189 to 250 and trended up to 287 @ HS.
Will change Lantus schedule and increase dose to 15 units in AM, 1st dose NOW.
Resume Prandin 1mg TID, 1st dose NOW. Resume Farxiga per OP schedule of BID
Cont Metformin 100mg BID and low corrective with meals
Diabetes plan of care discussed with pt and Nurse
Diabetes History
- -
Type of Diabetes: 2 requiring insulin
Pre-Admission Diabetes Regimen
05/11/24
06:23
Creatinine 0.6 L
Lab Results
Hemoglobin A1c 7.9 % (4.0-5.6) H 04/29/24 06:54
Insulin Pump Settings
IP Diabetes Regimen
05/10/24 05/10/24 05/10/24
12:03 17:12 21:43
Glucose
POC Glucose 250 H 189 H 287 H
05/11/24 05/11/24
06:23 07:56
Glucose 192 H
POC Glucose 194 H
Meal type: Dinner
Meal type: Dinner
Meal type: Lunch
Meal type: Breakfast
Amount consumed: Patient refused
Amount consumed: 100%
Amount consumed: 100%
Amount consumed: 50%
Patient Education
[2024-05-11] MEDS: NOVOLOG FLEXPEN-LOW RESISTANCE 1 UNITS SC ×2 (08:36→17:33)
[2024-05-11] MEDS: LOW STRENGTH ASPIRIN 81 MG PO (08:37)
[2024-05-11] MEDS: XARELTO 2.5 MG PO ×2 (08:37→21:02)
[2024-05-11] MEDS: OCUVITE SOFTGEL 2 CAP PO (08:37)
[2024-05-11] MEDS: FLOMAX 0.4 MG PO (08:37)
[2024-05-11] MEDS: GLUCOPHAGE 1000 MG PO ×2 (08:37→17:35)
[2024-05-11] MEDS: COLACE 100 MG PO (08:37)
[2024-05-11] MEDS: THERAGRAN 1 TABLET PO (08:37)
[2024-05-11] MEDS: VISBIOME 1 CAP PO (08:37)
[2024-05-11] MEDS: SANTYL OINTMENT 1 APPLIC TOPICAL (08:39)
[2024-05-11] MEDS: DAKIN'S SOLUTION 0.125% 1/4 STRENGTH 473 ML TOPICAL (08:39)
[2024-05-11] MEDS: DESENEX/MITRAZOL/ZEASORB 1 APPLIC TOPICAL ×2 (08:40→21:03)
[2024-05-11] MEDS: PRANDIN 1 MG PO ×3 (08:55→17:35)
[2024-05-11] MEDS: LANTUS 0.15 UNITS SC (08:57)
--- NOTE | 2024-05-11 10:01 | W.PN.HOSP.TC ---
Addendum entered and electronically signed by Truong Nicole MD 05/17/24 07:02:
Physical Exam
-
General: No Apparent Distress
HEENT: Normocephalic and Atraumatic
Respiratory: Negative Wheezes
Cardiac: Regular Rhythm and S1/S2
GI: Soft
Genito-urinary: No Costovertebral Tender
Neuro: AO x 3
Psych: Calm
Original Note:
Today's Communication/Plan
-
dc planning
Assessment / Plan
Assessment / Plan
Assessment:
Right heel ulcer, possible osteomyelitis
- MRI: Focal small soft tissue defect involving the superficial plantar soft tissues, inferior to the calcaneus. No evidence of collection to suggest abscess. No evidence for osteo myelitis. Intermediate T1-weighted signal within the subcutaneous
soft tissues off the plantar aspect of the posterior and inferior calcaneus, without significant enhancement postcontrast. This could represent soft tissue callus and/or relatively devascularize soft tissues. No evidence of collection. No evidence
for osteomyelitis of the calcaneus. Numerous prominent tortuous enhancing varicose veins within the medial soft tissues of the right lower leg and ankle.
- continue Vanco (requires intensive monitoring of levels) and Ertapenem per ID x 6 weeks. ESBL in culture. WBC stable
- s/p Right Distal Popliteal - Peroneal artery bypass (SVG) on 05/04. OP Vascular f/u
- s/p excisional bedside debridement 05/06 by Podiatry, OP f/u
- continue wound care per Podiatry/Vascular
- wound VAC being applied
# E coli/ UTI
Already receiving IV Abx. NO fever or dysuria.
Hyponatremia, mild
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
- improved with slower infusion
LUE Vancomycin infiltrate
- on Hylenex protocol with VATS team
Nocturnal hypoxia
- desats nocturnally to 78%
- Patient is in need of oxygen at 2 liters/minute via nasal cannula continuously nocturnally due to pulse oximetry of 78% on room air at rest. Oxygen will help to improve hypoxemia. Patient is mobile within the home. DuoNeb therapy has been tried
and is ineffective in treating hypoxemia related symptoms. Oxygen is needed to improve symptoms.
- possibly has sleep apnea; sleep study outpatient recommended
Anemia due to acute blood loss from OR and hemodilution
- monitor. HGB stable at 10
History of osteomyelitis status post amputation of left third toe, right second/third toes
Peripheral vascular disease status post bypass of left lower extremity/stent of right lower extremity
Type 2 diabetes
- hypoglycemic from poor appetite post-op
- insulin sliding scale
- resume Lantus at 12 units
- HGB A1C 7.9
- resume Metformin
- QUITLINE COUNSELOR consulted
- Resume repaglinide, dapagliflozin
#Diabetic neuropathy
# Acute urinary retention
Voiding Trial
# Hyperkalemia, resolved
Hyperlipidemia
- continue statin
History of subdural hematoma
Essential hypertension
- continue lisinopril
DVT ppx: Heparin
Code: Full
Total time spent to see the patient, examine the patient on the floor, review data and lab results, discuss treatment plan with patient, nursing staff around 55 minutes.
Anticipated Discharge: Within 24 hours
Subjective/Interval History
-
Date of Service: May 11, 2024
No complaints
No chest pain
Objective Data
-
Labs:
Laboratory Results
05/11/24
06:23
WBC 10.1
Hgb 10.3 L
Hct 31.3 L
Plt Count 335
Sodium 134 L
Potassium 4.7
Chloride 103
Carbon Dioxide 26
BUN 25 H
Creatinine 0.6 L
Glucose 192 H
Calcium 8.5
Vital Signs:
Vital Signs
Temp Pulse Resp BP Pulse Ox
98.1 F 79 18 141/65 97
05/11/24 07:00 05/11/24 07:00 05/11/24 07:00 05/11/24 07:00 05/11/24 07:00
I&O
05/10/24 05/11/24 05/12/24
06:59 06:59 06:59
Intake Total 1979 / 1979 1520 / 1520
Output Total 2059 221 / 221
Balance -80 / -80 -690 / -690
[2024-05-11 11:00] VITALS: BP 129/56
[2024-05-11 12:01] LABS: Glucose - Point of Care 238 mg/dl (70-99)
[2024-05-11] MEDS: NOVOLOG FLEXPEN-LOW RESISTANCE 2 UNITS SC (12:27)
[2024-05-11] MEDS: INVANZ 60 MG IV (14:53)
[2024-05-11 15:00] VITALS: BP 130/59
--- NOTE | 2024-05-11 15:53 | WOUNDNOTE ---
KIRILL RN NOTE: Wound vac re applied to R heel surgical site after confirming with Dr. Erickson. Wound has brown eschar and appears dry, sent picture to Dr. Erickson via TT. Dr. Velez asked to apply Santyl then black foam to 125mmhg, bridged to anterior
ankle. Covered area with kerlix and applied slipper sock. Dr. Velez will re evaluate on Saturday with wound care nurse.
[2024-05-11 16:40] LABS: Glucose - Point of Care 181 mg/dl (70-99)
--- NOTE | 2024-05-11 16:40 | CM ---
Called and spoke with daughter regarding [facility] acute vs [facility]. She had toured [place] over the weekend and [facility] was not able to have her tour until tomorrow 05/12/24. Her appointment is 1:00 PM. CM advised her that [facility] has
recommended SNF. [facility] had previously accepted. Daughter will call CM tomorrow after her tour.
[2024-05-11] MEDS: CRESTOR 20 MG PO (17:35)
[2024-05-11] MEDS: FARXIGA 5 MG PO (17:35)
[2024-05-11 19:45] VITALS: BP 156/67
[2024-05-11] MEDS: COLACE PO ×2 (21:02→21:05)
[2024-05-11 21:24] LABS: Glucose - Point of Care 161 mg/dl (70-99)
[2024-05-11 23:40] VITALS: BP 129/65
[2024-05-12] VITALS (9 sets, daily range): BP systolic 136–151; BP diastolic 56–70; BMI 27.7
[2024-05-12] MEDS: VANCOCIN 275 MG IV ×2 (06:05→17:54)
[2024-05-12 07:16] LABS: Glucose - Point of Care 165 mg/dl (70-99)
--- NOTE | 2024-05-12 07:54 | W.PN.VS ---
Addendum entered and electronically signed by Medardo Frey III, MD 05/12/24 11:18:
This patient was seen and examined with LEATHA Isidro. I agree with the history and physical exam as well as the assessment and plan. I have the following additions:
Palpable pulse in the popliteal fossa
Incisions clean and dry
EDI drain removed at bedside
Doppler signal present right posterior tibial location
VAC in place
Continue local wound care
Additional plan for heel wound per Dr. Erickson
Will follow along
Signed:
Medardo Frey III, MD
[facility]
[phone] (yizp)
Original Note:
Today's Communication / Plan
-
Seen and assessed with Dr. Frye
Assessment/Plan
-
Assessment: POD 8 right lower extremity above-knee popliteal artery to peroneal artery using ipsilateral non-reversed great saphenous vein
Plan:
Out of bed to chair/ambulate
Wound VAC, will discuss with podiatry possible debridement this admission
Subjective Data
-
Date of Service: May 12, 2024
Patient seen at bedside today with Dr. Frey. Patient expressed concerns over healing potential. Denies complaints at this time. Wound VAC intact
Objective Data
-
Vital Signs
Temp Pulse Resp BP Pulse Ox
98.2 F 64 20 140/65 97
05/12/24 03:40 05/12/24 03:40 05/12/24 03:40 05/12/24 03:40 05/12/24 03:40
Intake and Output
05/11/24 05/12/24 05/13/24
06:59 06:59 06:59
Intake Total 1520 / 1520 1825 / 1825
Output Total 2210 / 2210 1010 / 1010
Balance -690 / -690 815 / 815
Intake:
Oral fluids 1280 / 1280 1500 / 1500
Amount of oral supplement(s) 240 / 240
consumed
IV piggybacks 325 / 325
Output:
Drain Output (Total)
Right Leg Roland-Carrasquillo
Urine, Frey 2200 / 2200
Urine, Voided 1000 / 1000
Other:
Number of approximated LARGE 1
amounts of urine
How many times incontinent 1
MODERATE amount urine
Lab Results
05/11/24 06:23
05/11/24 06:23
Calcium 8.5 mg/dl (8.4-10.2) 05/11/24 06:23
Total Bilirubin 0.4 mg/dl (0.2-1.3) 04/29/24 06:54
AST 25 U/L (17-59) 04/29/24 06:54
ALT 27 U/L (0-50) 04/29/24 06:54
Alkaline Phosphatase 117 U/L (38-126) 04/29/24 06:54
Total Protein 6.0 g/dl (6.3-8.2) L 04/29/24 06:54
Albumin 3.4 g/dl (3.5-5.0) L 04/29/24 06:54
Physical Exam
-
No apparent distress, resting in bed comfortably
No tachycardia
No dyspnea on room air
ABD flat
Right leg sites clean, dry, intact. No drainage noted, EDI drain removed at bedside
Right foot with wound VAC intact
PT Doppler signal present
[2024-05-12] MEDS: NOVOLOG FLEXPEN-LOW RESISTANCE 1 UNITS SC ×3 (08:02→17:23)
[2024-05-12] MEDS: THERAGRAN 1 TABLET PO (08:03)
[2024-05-12] MEDS: VISBIOME 1 CAP PO (08:03)
[2024-05-12] MEDS: OCUVITE SOFTGEL 2 CAP PO (08:03)
[2024-05-12] MEDS: COLACE 100 MG PO (08:03)
[2024-05-12] MEDS: XARELTO 2.5 MG PO ×2 (08:03→21:38)
[2024-05-12] MEDS: FLOMAX 0.4 MG PO (08:03)
[2024-05-12] MEDS: GLUCOPHAGE 1000 MG PO ×2 (08:03→17:24)
[2024-05-12] MEDS: FARXIGA 5 MG PO ×2 (08:03→17:24)
[2024-05-12] MEDS: LOW STRENGTH ASPIRIN 81 MG PO (08:04)
[2024-05-12] MEDS: PRANDIN 1 MG PO ×3 (08:04→17:24)
[2024-05-12] MEDS: LANTUS 0.15 UNITS SC (08:07)
[2024-05-12] MEDS: SANTYL OINTMENT 1 APPLIC TOPICAL (08:09)
[2024-05-12] MEDS: DESENEX/MITRAZOL/ZEASORB 1 APPLIC TOPICAL ×2 (08:10→21:38)
[2024-05-12] MEDS: DAKIN'S SOLUTION 0.125% 1/4 STRENGTH 473 ML TOPICAL (08:10)
--- NOTE | 2024-05-12 08:14 | PHA.VAN.FU ---
Vancomycin Assessment / Plan
- Assessment
Renal Function: Stable
In the past 24 hrs, patient has been: Afebrile
Concomitant Antimicrobials: ertapenem
- Dosing Plan
Continue: Vanc 1250mg Q12H
Half-life greater than current dosing interval
Trough relatively stable - previous troughs were 16.4 and 14.5
Will continue Q12H dosing for now - may require Q24H interval if has accumulation
- Monitoring Plan
Level(s) appropriate: Recheck trough at minimum of weekly intervals, Repeat sooner for changes in renal function or clinical status
Next Level Due (Date): ~05/18, may consider later this week to assess for accumulation
- Follow Up
Pharmacy will continue to follow.
Vancomycin Follow UP
- -
Patient Age: 79
Patient Sex: Male
Vancomycin Day #: 15
Indication: Bone And Joint
Requesting Provider: Dr. Stiles / Chitra
Pertinent Antimicrobial Allergies:
NKDA
Height / Weight:
Height 5 ft 11 in
Actual Weight 90.083 kg
IBW in k.3
Adjusted BW in k.5
Pertinent Past Medical History: DM 2, PVD
- Vital Signs / Lab Results
Temp Pulse Resp BP Pulse Ox
97.8 F 70 16 139/69 97
05/12/24 08:07 05/12/24 08:07 05/12/24 08:07 05/12/24 08:07 05/12/24 08:07
Lab Results - Hematology
05/09/24 05/10/24 05/11/24
09:02 04:20 06:23
WBC 10.1 10.5 10.1
Lab Results - Chemistry
05/09/24 05/10/24 05/11/24
09:02 04:21 06:23
BUN 23 H 28 H 25 H
Creatinine 0.6 L 0.6 L 0.6 L
Estimated Creat Clear 110 110 110
Therapeutic Drug Monitoring
Vancomycin Peak 24.1 ug/ml (18-26) 05/10/24 22:03
Vancomycin Trough 16.5 ug/ml (5-20) 05/11/24 06:23
--- NOTE | 2024-05-12 08:54 | PN.DE.MGMTRT ---
Insulin Management
- -
05/12/2024: Diabetes Management F/U:
79 year old male admitted 04/28 with Right heel wound, possible osteomyelitis. PMH: PVD, CAD, HTN, HLD, PVD, prior amputation of R 2nd & 3rd toe and left 3rd toe, s/p bypass of LLE, prior stent to RLE, subdural hematoma, Diabetic Neuropathy and
T2DM.
Now POD #7 s/p RLE above-knee popliteal artery to peroneal artery using ipsilateral non-reversed great saphenous vein.
Diabetes management Consult requested on 05/10. Was taking Ozempic 1mg Q Mondays, Toujeo 20 units daily, Xigduo BID and Repaglinide 1mg TID. A1C 7.9%, Cr 0.6, eGFR >60.
Pt awake, A/O x3, sitting up in bed, offers no complaints, able to discuss diabetes mgt
05/11 Lantus schedule was changed to AM and Farxiga and Prandin were resumed
Premeal Glucose range improved to 181 to 238 and trended down to 161 @ HS.
Will increase Lantus to his OP dose- 20 units in AM, 1st dose tomorrow AM, pt already received 15 units this AM.
Continue Prandin 1mg TID, Farxiga 5mg BID, Metformin 100mg BID and low corrective with meals
Diabetes plan of care discussed with pt and Nurse
Diabetes History
- -
Type of Diabetes: 2 requiring insulin
Pre-Admission Diabetes Regimen
Lab Results
Hemoglobin A1c 7.9 % (4.0-5.6) H 04/29/24 06:54
Insulin Pump Settings
IP Diabetes Regimen
05/11/24 05/11/24 05/11/24
11:59 16:40 21:22
POC Glucose 238 H 181 H 161 H
05/12/24
07:13
POC Glucose 165 H
Meal type: Breakfast
Amount consumed: 95%
Patient Education
--- NOTE | 2024-05-12 09:31 | W.PN.HOSP.TC ---
Addendum entered and electronically signed by Truong Nicole MD 05/17/24 07:03:
Physical Exam
-
General: No Apparent Distress
HEENT: Normocephalic and Atraumatic
Respiratory: Negative Wheezes
Cardiac: Regular Rhythm and S1/S2
GI: Soft
Genito-urinary: No Costovertebral Tender
Neuro: AO x 3
Psych: Calm
Original Note:
Today's Communication/Plan
-
dc
Assessment / Plan
Assessment / Plan
Assessment:
Right heel ulcer, possible osteomyelitis
- MRI: Focal small soft tissue defect involving the superficial plantar soft tissues, inferior to the calcaneus. No evidence of collection to suggest abscess. No evidence for osteo myelitis. Intermediate T1-weighted signal within the subcutaneous
soft tissues off the plantar aspect of the posterior and inferior calcaneus, without significant enhancement postcontrast. This could represent soft tissue callus and/or relatively devascularize soft tissues. No evidence of collection. No evidence
for osteomyelitis of the calcaneus. Numerous prominent tortuous enhancing varicose veins within the medial soft tissues of the right lower leg and ankle.
- continue Vanco (requires intensive monitoring of levels) and Ertapenem per ID x 6 weeks. ESBL in culture. WBC stable
- s/p Right Distal Popliteal - Peroneal artery bypass (SVG) on 05/04. OP Vascular f/u
- s/p excisional bedside debridement 05/06 by Podiatry, OP f/u
- continue wound care per Podiatry/Vascular
- wound VAC being applied
# E coli/ UTI
Already receiving IV Abx. NO fever or dysuria.
Hyponatremia, mild
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
- improved with slower infusion
LUE Vancomycin infiltrate
- on Hylenex protocol with VATS team
Nocturnal hypoxia
- desats nocturnally to 78%
- Patient is in need of oxygen at 2 liters/minute via nasal cannula continuously nocturnally due to pulse oximetry of 78% on room air at rest. Oxygen will help to improve hypoxemia. Patient is mobile within the home. DuoNeb therapy has been tried
and is ineffective in treating hypoxemia related symptoms. Oxygen is needed to improve symptoms.
- possibly has sleep apnea; sleep study outpatient recommended
Anemia due to acute blood loss from OR and hemodilution
- monitor. HGB stable at 10
History of osteomyelitis status post amputation of left third toe, right second/third toes
Peripheral vascular disease status post bypass of left lower extremity/stent of right lower extremity
Type 2 diabetes
- hypoglycemic from poor appetite post-op
- insulin sliding scale
- resume Lantus at 12 units
- HGB A1C 7.9
- resume Metformin
- OFFICE WORKER consulted
- Resume repaglinide, dapagliflozin
#Diabetic neuropathy
# Acute urinary retention
Voiding Trial
# Hyperkalemia, resolved
Hyperlipidemia
- continue statin
History of subdural hematoma
Essential hypertension
- continue lisinopril
DVT ppx: Heparin
Code: Full
Total time spent to see the patient, examine the patient on the floor, review data and lab results, discuss treatment plan with patient, nursing staff around 55 minutes.
Anticipated Discharge: Today
Subjective/Interval History
-
Date of Service: May 12, 2024
Objective Data
-
Vital Signs:
Vital Signs
Temp Pulse Resp BP Pulse Ox
97.8 F 70 16 139/69 97
05/12/24 08:07 05/12/24 08:07 05/12/24 08:07 05/12/24 08:07 05/12/24 08:07
I&O
05/11/24 05/12/24 05/13/24
06:59 06:59 06:59
Intake Total 1520 / 1520 1825 / 1825
Output Total 2210 / 2210 1010 / 1010
Balance -690 / -690 815 / 815
[2024-05-12 11:41] LABS: Glucose - Point of Care 175 mg/dl (70-99)
[2024-05-12] MEDS: INVANZ 60 MG IV (14:31)
--- NOTE | 2024-05-12 15:11 | CM ---
Daughter toured [facility] today. Preference is [facility] for [facility]. This CM spoke with admissions and provided IV/AB's and wound care info. Admissions is checking pricing with their pharmacy.
--- NOTE | 2024-05-12 15:58 | W.PN.ID1 ---
Date of Service
Date of Service: May 12, 2024
Today's Communication
- patient at high risk for progression of infection to osteomyelitis, continue 6 week course of IV ertapenem and vancomycin 05/04-06/14
- PICC in place
- asks about hyperbaric O2, I would neither recommend for nor against it as I am not aware of strong data for this circumstance at this time, if patient would like outpatient referral for assessment I am willing to provide one
Assessment / Plan
Diabetic Foot Infection
Suspected Osteomyelitis of the (R) heel
S/p Right lower extremity above-knee popliteal artery to peroneal artery 05/04
PAD
- s/p RLE revascularization (05/04/24)
CAD
History of poor wound healing
- wound cultures - ESBL E. coli and Diphtheroid
- QTc 435
- wound vac in place
- patient at high risk for progression of infection to osteomyelitis, continue 6 week course of IV ertapenem and vancomycin 05/04-06/14
- PICC in place
- asks about hyperbaric O2, I would neither recommend for nor against it as I am not aware of strong data for this circumstance at this time, if patient would like outpatient referral for assessment I am willing to provide one
- follow clinically
Chief Complaint
-: Other (diabetic foot infection)
Subjective / Review of Systems
afebrile
wound vac in place
picc in place
no new complaints
Vital Signs / Physical Exam
Vital Signs
Vital Signs
Temp Pulse Resp BP Pulse Ox
97.4 F 74 16 151/70 98
05/12/24 11:05 05/12/24 11:05 05/12/24 11:05 05/12/24 11:05 05/12/24 11:05
Physical Exam
Constitutional: No Acute Distress
Cardiovascular: Regular Rate and S1/S2; Negative Murmur or Rub
Pulmonary: Clear and Symmetric; Negative Wheezes or Rales
Gastrointestinal: Soft, Non Tender, Non Distended and Normal Bowel Sounds
Skin: Warm and Dry; Negative Rash or Jaundice
Lines: PICC and Other (wound vac in place)
Objective Data
Lab Data
Lab Results
05/11/24 06:23
05/11/24 06:23
PT 16.2 Sec (11.4-14.6) H 05/05/24 04:26
INR 1.32 05/05/24 04:26
APTT 34.3 Sec (23.4-35.0) 05/05/24 04:26
Estimated Creat Clear 110 ml/min 05/11/24 06:23
Total Bilirubin 0.4 mg/dl (0.2-1.3) 04/29/24 06:54
AST 25 U/L (17-59) 04/29/24 06:54
ALT 27 U/L (0-50) 04/29/24 06:54
Alkaline Phosphatase 117 U/L (38-126) 04/29/24 06:54
Most recent labs reviewed.
Micro Results:
04/28/24 19:49 Wound Culture - Final
Heel - Right Escherichia coli - ESBL
Gram Stain - Final
04/28/24 22:49 MRSA Screen - Final
Nose No Methicillin Resistant Staphylococcus aureus isolated.
SPEC #: [id number] GLORY: 04/28/24
SOURCE: HEEL
SPDESC: Right
ORDERED: Wound/Other
Wound/abscess/other Cult Final
Many Escherichia coli - ESBL*
Few Diptheroids
Organism 1 Escherichia coli - ESBL
1. Escherichia coli - ESBL
M.I.C. RX
--------- ---
Amoxicillin/Potas. Clavulanate >16/8 R
Ampicillin >16 R
Ampicillin/Sulbactam <=8/4 S
Cefazolin >16 R
Cefepime <=2 S
Ceftazidime 8 I
Ceftriaxone >2 R
Ertapenem <=0.5 S
Ciprofloxacin <=0.25 S
Gentamicin <=4 S
Levofloxacin <=0.5 S
Meropenem <=1 S
Piperacillin/Tazobactam <=16 S
Tobramycin <=4 S
Trimethoprim/Sulfamethoxazole <=2/38 S
[2024-05-12 16:58] LABS: Glucose - Point of Care 162 mg/dl (70-99)
[2024-05-12] MEDS: CRESTOR 20 MG PO (17:24)
[2024-05-12 21:06] LABS: Glucose - Point of Care 156 mg/dl (70-99)
[2024-05-12] MEDS: COLACE PO (21:38)
[2024-05-13 03:13] VITALS: BP 131/62
[2024-05-13 05:41] VITALS: BMI 28.1
[2024-05-13] MEDS: VANCOCIN 275 MG IV ×2 (06:00→17:28)
[2024-05-13 07:05] VITALS: BP 140/69
[2024-05-13 07:13] LABS: Glucose - Point of Care 144 mg/dl (70-99)
--- NOTE | 2024-05-13 07:45 | W.PN.POD ---
Today's Communication
Today's Communication
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 NWB to the right heel
Patient's Wound vac removed. We discussed and decided to proceed with another bedside debridement.
The right heel wound was irrigated with 0.025% dakins solution and Using sterile 15 blade the wound edges were sharply debrided through the epidermis, dermis and into subcutaneous tissue, fascia. Bleeding encountered, and pressure applied,
underlying tissue does appear to be slightly more viable. The patient tolerated well with no discomfort.
Wound again irrigated with dakins solution, pat dry with sterile gauze and wound VAC dressing was reapplied with resume specialist.
SNF placement is still pending as result of insurance and complexity of care.
Assessment / Plan
-
1-DM2 with PAD- S/P successful Right lower extremity above-knee popliteal artery to peroneal artery
2-DM2 with DPN and LOPS
3-Stage 4/diabetic heel wound S/P full thickness debridement at bedside on 05/06 and again 05/14 and today 05/15 on wound vac therapy
Subjective
Chief Complaint
chronic wound right foot/PAD
Subjective
Patient sitting up in bed, seen at bedside with cotton ginner helper, pts daughter Jany and resident for wound vac change and reevaluation of wound.
Objective
Temp Pulse Resp BP Pulse Ox
97.7 F 58 16 139/62 95
05/15/24 07:00 05/15/24 07:00 05/15/24 07:00 05/15/24 07:00 05/15/24 11:09
05/11/24 06:23
05/14/24 05:18
Vital Signs and Lab results were reviewed.
Review of Systems
Review of Systems
Review of Systems: No Fever, No Chills, No Nausea, No Diarrhea, No Joint Pain and No Skin Rash
Physical Exam
Physical Exam
General: No Apparent Distress and Comfortable
Musculoskeletal: Edema, Right Lower Extrem (mild)
Skin: Warm and Wound (wound VAC removed, some increased granulation at periphery- however central calcaneus with layer of fascial covering remains pale/mainly non viable as well as meadows fibrotic fat to the inferior aspect of the wound where there is
some undermining. No odor, purulence or cellulitiis)
Neuro: AO x 3 and Protective Sensation Absent
Vascular: Capillary Refill Delayed, Pedal Hair Absent and Skin Temperature Warm to Cool
Dorsalis Pedis: Diminished
Posterior Tibialis: Diminished
--- NOTE | 2024-05-13 08:43 | PN.DE.MGMTRT ---
Insulin Management
- -
05/13/2024: Diabetes Management F/U:
79 year old male admitted 04/28 with Right heel wound, possible osteomyelitis. PMH: PVD, CAD, HTN, HLD, PVD, prior amputation of R 2nd & 3rd toe and left 3rd toe, s/p bypass of LLE, prior stent to RLE, subdural hematoma, Diabetic Neuropathy and
T2DM.
Now POD #7 s/p RLE above-knee popliteal artery to peroneal artery using ipsilateral non-reversed great saphenous vein.
Diabetes management Consult requested on 05/10. Was taking Ozempic 1mg Q Mondays, Toujeo 20 units daily, Xigduo BID and Repaglinide 1mg TID. A1C 7.9%, Cr 0.6, eGFR >60.
Pt awake, A/O x3, sitting up in bed, offers no complaints, able to discuss diabetes mgt
Premeal Glucose range continues to improve 162 to 175, fasting 144 this AM.
Will cont current regimen: Lantus 20 units in AM, Prandin 1mg TID, Farxiga 5mg BID, Metformin 1000mg BID and low corrective with meals
Diabetes plan of care discussed with pt and Nurse
Diabetes History
- -
Type of Diabetes: 2 requiring insulin
Pre-Admission Diabetes Regimen
Lab Results
Hemoglobin A1c 7.9 % (4.0-5.6) H 04/29/24 06:54
Insulin Pump Settings
IP Diabetes Regimen
05/12/24 05/12/24 05/12/24
11:36 16:51 21:04
POC Glucose 175 H 162 H 156 H
05/13/24
07:09
POC Glucose 144 H
Meal type: Lunch
Meal type: Breakfast
Amount consumed: 100%
Amount consumed: 100%
Patient Education
[2024-05-13] MEDS: NOVOLOG FLEXPEN-LOW RESISTANCE SC (09:06)
[2024-05-13] MEDS: THERAGRAN 1 TABLET PO (09:06)
[2024-05-13] MEDS: LOW STRENGTH ASPIRIN 81 MG PO (09:06)
[2024-05-13] MEDS: VISBIOME 1 CAP PO (09:06)
[2024-05-13] MEDS: OCUVITE SOFTGEL 2 CAP PO (09:06)
[2024-05-13] MEDS: FLOMAX 0.4 MG PO (09:07)
[2024-05-13] MEDS: GLUCOPHAGE 1000 MG PO ×2 (09:07→16:35)
[2024-05-13] MEDS: XARELTO 2.5 MG PO ×2 (09:07→20:16)
[2024-05-13] MEDS: FARXIGA 5 MG PO ×2 (09:07→16:35)
[2024-05-13] MEDS: COLACE 100 MG PO (09:07)
[2024-05-13] MEDS: PRANDIN 1 MG PO ×3 (09:07→16:38)
[2024-05-13] MEDS: DAKIN'S SOLUTION 0.125% 1/4 STRENGTH 1 ML TOPICAL (09:08)
[2024-05-13] MEDS: DESENEX/MITRAZOL/ZEASORB 1 APPLIC TOPICAL ×2 (09:08→20:17)
[2024-05-13] MEDS: LANTUS 0.2 UNITS SC (09:14)
--- NOTE | 2024-05-13 09:26 | W.PN.HOSP.TC ---
Addendum entered and electronically signed by Truong Nicole MD 05/17/24 07:03:
Physical Exam
-
General: No Apparent Distress
HEENT: Normocephalic and Atraumatic
Respiratory: Negative Wheezes
Cardiac: Regular Rhythm and S1/S2
GI: Soft
Genito-urinary: No Costovertebral Tender
Neuro: AO x 3
Psych: Calm
Original Note:
Today's Communication/Plan
-
dc
Assessment / Plan
Assessment / Plan
Assessment:
Right heel ulcer, possible osteomyelitis
- MRI: Focal small soft tissue defect involving the superficial plantar soft tissues, inferior to the calcaneus. No evidence of collection to suggest abscess. No evidence for osteo myelitis. Intermediate T1-weighted signal within the subcutaneous
soft tissues off the plantar aspect of the posterior and inferior calcaneus, without significant enhancement postcontrast. This could represent soft tissue callus and/or relatively devascularize soft tissues. No evidence of collection. No evidence
for osteomyelitis of the calcaneus. Numerous prominent tortuous enhancing varicose veins within the medial soft tissues of the right lower leg and ankle.
- continue Vanco (requires intensive monitoring of levels) and Ertapenem per ID x 6 weeks. ESBL in culture. WBC stable
- s/p Right Distal Popliteal - Peroneal artery bypass (SVG) on 05/04. OP Vascular f/u
- s/p excisional bedside debridement 05/06 by Podiatry, OP f/u
- continue wound care per Podiatry/Vascular
- wound VAC being applied
# E coli/ UTI
Already receiving IV Abx. NO fever or dysuria.
Hyponatremia, mild
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
- improved with slower infusion
LUE Vancomycin infiltrate
- on Hylenex protocol with VATS team
Nocturnal hypoxia
- desats nocturnally to 78%
- Patient is in need of oxygen at 2 liters/minute via nasal cannula continuously nocturnally due to pulse oximetry of 78% on room air at rest. Oxygen will help to improve hypoxemia. Patient is mobile within the home. DuoNeb therapy has been tried
and is ineffective in treating hypoxemia related symptoms. Oxygen is needed to improve symptoms.
- possibly has sleep apnea; sleep study outpatient recommended
Anemia due to acute blood loss from OR and hemodilution
- monitor. HGB stable at 10
History of osteomyelitis status post amputation of left third toe, right second/third toes
Peripheral vascular disease status post bypass of left lower extremity/stent of right lower extremity
Type 2 diabetes
- hypoglycemic from poor appetite post-op
- insulin sliding scale
- resume Lantus at 12 units
- HGB A1C 7.9
- resumed Metformin
- BACON SKIN LIFTER consulted
- Resume repaglinide, dapagliflozin
#Diabetic neuropathy
# Acute urinary retention
Voiding Trial
# Hyperkalemia, resolved
Hyperlipidemia
- continue statin
History of subdural hematoma
Essential hypertension
- continue lisinopril
DVT ppx: Heparin
Code: Full
Total time spent to see the patient, examine the patient on the floor, review data and lab results, discuss treatment plan with patient, nursing staff around 45 minutes.
Anticipated Discharge: Today
Subjective/Interval History
-
Date of Service: May 13, 2024
Objective Data
-
Vital Signs:
Vital Signs
Temp Pulse Resp BP Pulse Ox
97.7 F 59 16 140/69 97
05/13/24 07:05 05/13/24 07:05 05/13/24 07:05 05/13/24 07:05 05/13/24 07:05
I&O
05/12/24 05/13/24 05/14/24
06:59 06:59 06:59
Intake Total 1825 / 1825 1560 / 1560
Output Total 1010 / 1010 1900 / 1900
Balance 815 / 815 -340 / -340
[2024-05-13] MEDS: SANTYL OINTMENT 1 APPLIC TOPICAL (09:31)
[2024-05-13 11:49] LABS: Glucose - Point of Care 206 mg/dl (70-99)
[2024-05-13 11:50] VITALS: BP 139/65
[2024-05-13] MEDS: NOVOLOG FLEXPEN-LOW RESISTANCE 2 UNITS SC (11:54)
--- NOTE | 2024-05-13 14:00 | WOUNDNOTE ---
[facility] RN Note: Patient seen with Dr. Erickson. He is R forefoot weight bear only with DH pressure relief shoe. He ambulated with walker from chair to bed with supervision/assistance. R heel mostly necrotic. Dr. Erickson debrided R plantar heel wound and
requested Santyl and wound vac. Assisted Dr. Erickson with R heel vac dressing (Santyl to necrotic tissue). Patient tolerated well. Skin on L heel and sacrum intact. Air chair cushion in chair. Patient can move self in bed. Instructed patient
pressure injury prevention measures. Patient reports a good appetite. Heels off bed with pillow. Trampoline Team Coach Samira stated having trouble finding an accepting SNF for IV med, vac, Santyl ointment.
--- NOTE | 2024-05-13 14:00 | WOUNDNOTE ---
R MEDIAL FOOT/ANKLE/HEEL (prior to heel wound debridement at bedside by administrative supervisor)
--- NOTE | 2024-05-13 14:00 | WOUNDNOTE ---
R PLANTAR HEEL (prior to debridement at bedside by match marker)
[2024-05-13] MEDS: INVANZ 60 MG IV (14:45)
[2024-05-13 15:41] VITALS: BP 134/67
--- NOTE | 2024-05-13 16:10 | W.PN.POD ---
Today's Communication
Today's Communication
Patient seen with his daughter, Jany rubi Jeannette, cylinder steamer at bedside. Wound vac removed. We discussed and decided to proceed with bedside debridement to determine whether to continue VAC therapy or not. The right heel wound was irrigated
with 0.025% dakins solution and Using combination of sterile dissecting scissors and forceps and a sterile 15 blade the wound edged were sharply debrided through the epidermis, dermis and into subcutaneous tissue, fascia. Scant bleeding encountered,
however, underlying tissue does appear to be slightly more viable. The patient tolerated well with minimal to no discomfort.
Wound again irriagted with dakins solution, pat dry with sterile gauze and santyl ointment applied to wound bed and wound VAC dressing was reapplied with cylinder steamer.
SNF placement is still pending as result of insurance and complexity of care. If patient remains here until Saturday, I will return, remove the wound VAC and re evaluate the wound. If he is DC to SNF, WOUND CARE to the right heel is same as above:
Cleanse with Dakins solution or Vashe, pat dry, apply nickel thick santyl ointment to wound bed and re apply wound vac (black foam dressing bridged to the distal leg 125mmHg, continuous, low settings) and I will follow as outpatient.
Assessment / Plan
-
1-DM2 with PAD- S/P successful Right lower extremity above-knee popliteal artery to peroneal artery
2-DM2 with DPN and LOPS
3-Stage 4/diabetic heel wound S/P full thickness debridement 05/06/24- santyl with wound vac therapy
Subjective
Chief Complaint
non healing wound right foot
Subjective
Sitting up in chair, denies pain RLE
Objective
Temp Pulse Resp BP Pulse Ox
98.4 F 74 16 134/67 99
05/13/24 15:41 05/13/24 15:41 05/13/24 15:41 05/13/24 15:41 05/13/24 15:41
05/11/24 06:23
05/11/24 06:23
Vital Signs and Lab results were reviewed.
Inspection: Cellulitis (resolved)
Review of Systems
Review of Systems
Review of Systems: No Fever, No Chills, No Headache, No Nausea and No Diarrhea
Physical Exam
Physical Exam
General: No Apparent Distress, Comfortable and Conversant
Musculoskeletal: Edema, Right Lower Extrem (moderate)
Skin: Warm, Dry and Necrotic (wound vac removed and there is necrotic edge to inferior aspect of the wound and dusky meadows exposed fascia over calcaneus approx 2cm2 area, however today there is some granulation at the periphery of the wound. No odor,
no purulence)
Neuro: AO x 3 and Protective Sensation Absent
Vascular: Capillary Refill Delayed
Dorsalis Pedis: Diminished (but palpable)
Posterior Tibialis: Diminished (palpable)
--- NOTE | 2024-05-13 16:19 | PHA.VAN.FU ---
Vancomycin Assessment / Plan
- Assessment
Renal Function: No New Labs Today
In the past 24 hrs, patient has been: Afebrile
Concomitant Antimicrobials: ertapenem
- Dosing Plan
Continue: Vanc 1250mg Q12H infused over 2 hours
- Monitoring Plan
Peak Level: 05/13 21:30
Trough Level: 05/14 05:30 - levels to be drawn after 30th maintenance dose
Monitoring Comments: will obtain levels if remains admitted to assess half-life / accumulation
If to be discharged prior to levels, consider repeat trough Mon 05/18
Will obtain BUN & SCR with trough, if remains admitted
- Follow Up
Pharmacy will continue to follow.
Vancomycin Follow UP
- -
Patient Age: 79
Patient Sex: Male
Vancomycin Day #: 16
Indication: Bone And Joint
Requesting Provider: Dr. Stiles / Chitra
Pertinent Antimicrobial Allergies:
NKDA
Height / Weight:
Height 5 ft 11 in
Actual Weight 91.308 kg
IBW in k.3
Adjusted BW in k.5
Pertinent Past Medical History: DM 2, PVD
- Vital Signs / Lab Results
Temp Pulse Resp BP Pulse Ox
98.4 F 74 16 134/67 99
05/13/24 15:41 05/13/24 15:41 05/13/24 15:41 05/13/24 15:41 05/13/24 15:41
Lab Results - Hematology
05/11/24
06:23
WBC 10.1
Lab Results - Chemistry
05/11/24
06:23
BUN 25 H
Creatinine 0.6 L
Estimated Creat Clear 110
Therapeutic Drug Monitoring
Vancomycin Peak 24.1 ug/ml (18-26) 05/10/24 22:03
Vancomycin Trough 16.5 ug/ml (5-20) 05/11/24 06:23
--- NOTE | 2024-05-13 16:24 | CM ---
[facility] is unable to accept patient for rehab due to the cost of IV/AB ($1400/week), scheduled meds ($1200/week), wound vac ($50.00/day) and Santyl ($400.00/month). Discussed with patient and left message for daughter on 05/12/24.
Received call from daughter concerning recommended discharge to SNF. Daughter is requesting that [facility] reconsider if scheduled meds are provided by family. She is requesting to speak with [facility] foreign exchange student coordinator. She had left a message
today but did not get a response. This CM relayed message to [facility] admissions.
Daughter also requested [facility] reconsider evaluation for acute rehab. [facility] recommended SNF. DH therapy recommending acute. TT sent to [facility] and Attending.
Daughter has been researching and touring facilities. She requests referral be placed to [facility] and [facility]. Referrals will be forwarded.
This CM stressed need to choose a facility as patient is medically stable and is ready for discharge. She expressed understanding but is clear that she will not have her father go to a facility that has inadequate care per the reviews. CM offered
to send blanket referrals and review any acceptances. Daughter adamantly would not give permission for blanket referrals as she does not want patient's personal information going to any facility that she has not requested a referral.
[2024-05-13] MEDS: NOVOLOG FLEXPEN-LOW RESISTANCE 1 UNITS SC (16:34)
[2024-05-13 16:35] LABS: Glucose - Point of Care 153 mg/dl (70-99)
--- NOTE | 2024-05-13 17:04 | W.PN.ID1 ---
Date of Service
Date of Service: May 13, 2024
Today's Communication
- patient at high risk for progression of infection to osteomyelitis, continue 6 week course of IV ertapenem and vancomycin 05/04-06/14
- PICC in place
Assessment / Plan
Diabetic Foot Infection
Suspected Osteomyelitis of the (R) heel
S/p Right lower extremity above-knee popliteal artery to peroneal artery 05/04
PAD
- s/p RLE revascularization (05/04/24)
CAD
History of poor wound healing
- wound cultures - ESBL E. coli and Diphtheroid
- QTc 435
- wound vac in place
- patient at high risk for progression of infection to osteomyelitis, continue 6 week course of IV ertapenem and vancomycin 05/04-06/14
- PICC in place
- awaiting placement
Chief Complaint
-: Other (diabetic foot infection)
Subjective / Review of Systems
afebrile
picc in place
reports there was some bleeing with the wound vac change which is a positive sign
Vital Signs / Physical Exam
Vital Signs
Vital Signs
Temp Pulse Resp BP Pulse Ox
98.4 F 74 16 134/67 99
05/13/24 15:41 05/13/24 15:41 05/13/24 15:41 05/13/24 15:41 05/13/24 15:41
Physical Exam
Constitutional: No Acute Distress
Cardiovascular: Regular Rate and S1/S2; Negative Murmur or Rub
Pulmonary: Clear and Symmetric; Negative Wheezes or Rales
Gastrointestinal: Soft, Non Tender, Non Distended and Normal Bowel Sounds
Skin: Warm and Dry; Negative Rash or Jaundice
Lines: PICC and Other (wound vac)
Objective Data
Lab Data
Lab Results
05/11/24 06:23
05/11/24 06:23
PT 16.2 Sec (11.4-14.6) H 05/05/24 04:26
INR 1.32 05/05/24 04:26
APTT 34.3 Sec (23.4-35.0) 05/05/24 04:26
Estimated Creat Clear 110 ml/min 05/11/24 06:23
Total Bilirubin 0.4 mg/dl (0.2-1.3) 04/29/24 06:54
AST 25 U/L (17-59) 04/29/24 06:54
ALT 27 U/L (0-50) 04/29/24 06:54
Alkaline Phosphatase 117 U/L (38-126) 04/29/24 06:54
Most recent labs reviewed.
Micro Results:
04/28/24 19:49 Wound Culture - Final
Heel - Right Escherichia coli - ESBL
Gram Stain - Final
04/28/24 22:49 MRSA Screen - Final
Nose No Methicillin Resistant Staphylococcus aureus isolated.
SPEC #: [id number] GLORY: 04/28/24
SOURCE: HEEL
SPDESC: Right
ORDERED: Wound/Other
Wound/abscess/other Cult Final
Many Escherichia coli - ESBL*
Few Diptheroids
Organism 1 Escherichia coli - ESBL
1. Escherichia coli - ESBL
M.I.C. RX
--------- ---
Amoxicillin/Potas. Clavulanate >16/8 R
Ampicillin >16 R
Ampicillin/Sulbactam <=8/4 S
Cefazolin >16 R
Cefepime <=2 S
Ceftazidime 8 I
Ceftriaxone >2 R
Ertapenem <=0.5 S
Ciprofloxacin <=0.25 S
Gentamicin <=4 S
Levofloxacin <=0.5 S
Meropenem <=1 S
Piperacillin/Tazobactam <=16 S
Tobramycin <=4 S
Trimethoprim/Sulfamethoxazole <=2/38 S
[2024-05-13] MEDS: CRESTOR 20 MG PO (17:28)
[2024-05-13] MEDS: COLACE PO (20:16)
[2024-05-13 21:46] LABS: Glucose - Point of Care > 600 mg/dl (70-99)
[2024-05-13 21:50] LABS: Glucose - Point of Care 137 mg/dl (70-99)
[2024-05-13 21:52] LABS: Vancomycin Peak 26.2 ug/ml (18-26)
[2024-05-13 23:30] VITALS: BP 130/59
[2024-05-14 05:34] VITALS: BMI 27.7
[2024-05-14 06:04] LABS: Vancomycin Trough 18.3 ug/ml (5-20)
[2024-05-14 06:08] LABS: Blood Urea Nitrogen 25 mg/dl (9-20); Estimated Creatinine Clearance 110 ml/min
[2024-05-14] MEDS: VANCOCIN 275 MG IV (06:19)
[2024-05-14 07:00] VITALS: BP 136/65
[2024-05-14 07:24] LABS: Glucose - Point of Care 172 mg/dl (70-99)
--- NOTE | 2024-05-14 07:45 | PHA.VAN.FU ---
Vancomycin Assessment / Plan
- Assessment
Renal Function: Stable
In the past 24 hrs, patient has been: Afebrile
Concomitant Antimicrobials: ertapenem
- Assessment - Therapeutic Drug Monitoring
Extrapolated Cmax (mcg/mL): 28.7
Peak level was drawn: Appropriately (drawn ~2H after end of previous infusion)
Extrapolated Cmin (mcg/mL): 18.2
Trough Drawn: Appropriately
Levels were drawn: At steady state (levels drawn after 30th maintenance dose; patient with slow accumulation and may continue to accumulate further)
Calculated AUC (mcg*h/mL): 554
Calculated ke: 0.0456
Calculated half life (H): 15.2
Calculated Vd (L): 99 (~1.1 L/kg)
Calculated Vanc CL (ml/min): 75
- Dosing Plan
Adjust Regimen to: Vanc 1500mg Q24H infused over 2H
Adjusting dose given noted accumulation with half-life > dosing interval
Difficult to estimate predicted AUC as patient likely has not fully accumulated on Q12H regimen - may require further dose adjustment
- Monitoring Plan
No level(s) ordered at this time: consider level(s) early next week to assess new regimen
- Follow Up
Pharmacy will continue to follow.
Vancomycin Follow UP
- -
Patient Age: 79
Patient Sex: Male
Vancomycin Day #: 17
Indication: Bone And Joint
Requesting Provider: Dr. Stiles / Chitra
Pertinent Antimicrobial Allergies:
NKDA
Height / Weight:
Height 5 ft 11 in
Actual Weight 89.896 kg
IBW in k.3
Adjusted BW in k.5
Pertinent Past Medical History: DM 2, PVD
- Vital Signs / Lab Results
Temp Pulse Resp BP Pulse Ox
98.1 F 65 14 130/59 97
05/13/24 23:30 05/13/24 23:30 05/13/24 23:30 05/13/24 23:30 05/13/24 23:30
Lab Results - Chemistry
05/14/24
05:18
BUN 25 H
Creatinine 0.6 L
Estimated Creat Clear 110
Therapeutic Drug Monitoring
Vancomycin Peak 26.2 ug/ml (18-26) H 05/13/24 21:26
Vancomycin Trough 18.3 ug/ml (5-20) 05/14/24 05:18
[2024-05-14] MEDS: NOVOLOG FLEXPEN-LOW RESISTANCE 1 UNITS SC (07:56)
[2024-05-14] MEDS: OCUVITE SOFTGEL 2 CAP PO (07:56)
[2024-05-14] MEDS: FLOMAX 0.4 MG PO (07:56)
[2024-05-14] MEDS: THERAGRAN 1 TABLET PO (07:56)
[2024-05-14] MEDS: VISBIOME 1 CAP PO (07:56)
[2024-05-14] MEDS: FARXIGA 5 MG PO ×2 (07:56→16:59)
[2024-05-14] MEDS: XARELTO 2.5 MG PO ×2 (07:57→20:25)
[2024-05-14] MEDS: PRANDIN 1 MG PO ×3 (07:57→17:00)
[2024-05-14] MEDS: GLUCOPHAGE 1000 MG PO ×2 (07:57→17:00)
[2024-05-14] MEDS: COLACE PO ×2 (07:58→20:25)
[2024-05-14] MEDS: LOW STRENGTH ASPIRIN 81 MG PO (07:58)
[2024-05-14] MEDS: LANTUS 0.2 UNITS SC (07:58)
--- NOTE | 2024-05-14 08:40 | PN.DE.MGMTRT ---
Insulin Management
- -
05/14/2024: Diabetes Management F/U:
79 year old male admitted 04/28 with Right heel wound, possible osteomyelitis. PMH: PVD, CAD, HTN, HLD, PVD, prior amputation of R 2nd & 3rd toe and left 3rd toe, s/p bypass of LLE, prior stent to RLE, subdural hematoma, Diabetic Neuropathy and
T2DM.
Now POD #7 s/p RLE above-knee popliteal artery to peroneal artery using ipsilateral non-reversed great saphenous vein.
Diabetes management Consult requested on 05/10. Was taking Ozempic 1mg Q Mondays, Toujeo 20 units daily, Xigduo BID and Repaglinide 1mg TID. A1C 7.9%, Cr 0.6, eGFR >60.
Pt awake, A/O x3, sitting up in bed, offers no complaints, able to discuss diabetes mgt
Glucose remains stable and in range, premeal 144 to 206, fasting 172 this AM.
Will cont current regimen: Lantus 20 units in AM, Prandin 1mg TID, Farxiga 5mg BID, Metformin 1000mg BID and low corrective with meals
Diabetes plan of care discussed with pt and Nurse
Diabetes History
- -
Type of Diabetes: 2 requiring insulin
Pre-Admission Diabetes Regimen
05/14/24
05:18
Creatinine 0.6 L
Lab Results
Hemoglobin A1c 7.9 % (4.0-5.6) H 04/29/24 06:54
Insulin Pump Settings
IP Diabetes Regimen
05/13/24 05/13/24 05/13/24
11:48 16:33 21:43
POC Glucose 206 H 153 H > 600 H*
05/13/24 05/14/24
21:49 07:22
POC Glucose 137 H 172 H
Meal type: Dinner
Meal type: Lunch
Meal type: Breakfast
Amount consumed: 100%
Amount consumed: 100%
Amount consumed: 100%
Patient Education
--- NOTE | 2024-05-14 09:16 | W.PN.HOSP.TC ---
Addendum entered and electronically signed by Truong Nicole MD 05/17/24 07:04:
Physical Exam
-
General: No Apparent Distress
HEENT: Normocephalic and Atraumatic
Respiratory: Negative Wheezes
Cardiac: Regular Rhythm and S1/S2
GI: Soft
Genito-urinary: No Costovertebral Tender
Neuro: AO x 3
Psych: Calm
Original Note:
Today's Communication/Plan
-
dc planning
Assessment / Plan
Assessment / Plan
Assessment:
Right heel ulcer, possible osteomyelitis
- MRI: Focal small soft tissue defect involving the superficial plantar soft tissues, inferior to the calcaneus. No evidence of collection to suggest abscess. No evidence for osteo myelitis. Intermediate T1-weighted signal within the subcutaneous
soft tissues off the plantar aspect of the posterior and inferior calcaneus, without significant enhancement postcontrast. This could represent soft tissue callus and/or relatively devascularize soft tissues. No evidence of collection. No evidence
for osteomyelitis of the calcaneus. Numerous prominent tortuous enhancing varicose veins within the medial soft tissues of the right lower leg and ankle.
- continue Vanco (requires intensive monitoring of levels) and Ertapenem per ID x 6 weeks. ESBL in culture. WBC stable
- s/p Right Distal Popliteal - Peroneal artery bypass (SVG) on 05/04. OP Vascular f/u
- s/p excisional bedside debridement 05/06 by Podiatry, OP f/u
- continue wound care per Podiatry/Vascular
- wound VAC being applied
# E coli/ UTI
Already receiving IV Abx. NO fever or dysuria.
Hyponatremia, mild
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
- improved with slower infusion
LUE Vancomycin infiltrate
- on Hylenex protocol with VATS team
Nocturnal hypoxia
- desats nocturnally to 78%
- Patient is in need of oxygen at 2 liters/minute via nasal cannula continuously nocturnally due to pulse oximetry of 78% on room air at rest. Oxygen will help to improve hypoxemia. Patient is mobile within the home. DuoNeb therapy has been tried
and is ineffective in treating hypoxemia related symptoms. Oxygen is needed to improve symptoms.
- possibly has sleep apnea; sleep study outpatient recommended
Anemia due to acute blood loss from OR and hemodilution
- monitor. HGB stable at 10
History of osteomyelitis status post amputation of left third toe, right second/third toes
Peripheral vascular disease status post bypass of left lower extremity/stent of right lower extremity
Type 2 diabetes
- hypoglycemic from poor appetite post-op
- insulin sliding scale
- resume Lantus at 12 units
- HGB A1C 7.9
- resumed Metformin
- [facility] PATH THERAPIST consulted
- Resume repaglinide, dapagliflozin
#Diabetic neuropathy
# Acute urinary retention
Voiding Trial
# Hyperkalemia, resolved
Hyperlipidemia
- continue statin
History of subdural hematoma
Essential hypertension
- continue lisinopril
DVT ppx: Heparin
Code: Full
Total time spent to see the patient, examine the patient on the floor, review data and lab results, discuss treatment plan with patient, nursing staff around 45 minutes.
Anticipated Discharge: Today
Subjective/Interval History
-
Date of Service: May 14, 2024
No chest pain
No sob
Objective Data
-
Labs:
Laboratory Results
05/14/24
05:18
BUN 25 H
Creatinine 0.6 L
Vital Signs:
Vital Signs
Temp Pulse Resp BP Pulse Ox
97.7 F 66 18 136/65 100
05/14/24 07:00 05/14/24 07:00 05/14/24 07:00 05/14/24 07:00 05/14/24 07:00
I&O
05/13/24 05/14/24 05/15/24
06:59 06:59 06:59
Intake Total 1560 / 1560 990 / 990
Output Total 1900 / 1900 1500 / 1500
Balance -340 / -340 -510 / -510
[2024-05-14] MEDS: DAKIN'S SOLUTION 0.125% 1/4 STRENGTH 1 ML TOPICAL (09:43)
[2024-05-14] MEDS: DESENEX/MITRAZOL/ZEASORB 1 APPLIC TOPICAL ×2 (09:44→20:24)
[2024-05-14] MEDS: SANTYL OINTMENT 1 APPLIC TOPICAL (09:44)
--- NOTE | 2024-05-14 10:28 | CM ---
Addendum entered by Sharmaine Yen 05/14/24 15:25:
Per [facility]; the patient needs to be off IV pain medication for 24 hours before they will accept him.
NEW PT/OT notes sent to [facility] via [facility]
CM will continue to follow and coordinate discharge plan
Addendum entered by Sharmaine Yen 05/14/24 14:30:
Today's PT notes and updated prescription received for IV Antibiotics faxed to [facility]
Addendum entered by Sharmaine Yen 05/14/24 12:53:
Patient and family agreeable with going to [facility] pending insurance AUTH approval
Original Note:
Manager Diversity spoke with patient's daughter via phone several times this morning
Explained to daughter that PT/OT recommended Acute Rehab when discharged
Referrals to [facility] has accepted referral; daughter notified and reported that she would speak with her father
Plan: discharge to [facility] if patient/family is agreeable and AUTH is approved
--- NOTE | 2024-05-14 11:57 | W.PN.UPDATE ---
Update Note
Progress Note Update
As result of peripheral neuropathy patient unable to sense his forefoot therefore he is unable to maintain PWB to his forefoot and will need to be NWB to the RLE.
PT orders updated.
[2024-05-14 12:13] LABS: Glucose - Point of Care 221 mg/dl (70-99)
[2024-05-14] MEDS: NOVOLOG FLEXPEN-LOW RESISTANCE 2 UNITS SC ×2 (12:15→16:59)
[2024-05-14] MEDS: COLACE 100 MG PO (12:49)
[2024-05-14] MEDS: INVANZ 60 MG IV (13:25)
--- NOTE | 2024-05-14 14:12 | W.PN.ID1 ---
Addendum entered and electronically signed by Shonda Buenrostro MD 05/14/24 14:17:
vancomycin dose adjusted and I have provided a new script to case management
Original Note:
Date of Service
Date of Service: May 14, 2024
Today's Communication
- patient at high risk for progression of infection to osteomyelitis, continue 6 week course of IV ertapenem and vancomycin 05/04-06/14
- PICC in place
- awaiting placement
Assessment / Plan
Diabetic Foot Infection
Suspected Osteomyelitis of the (R) heel
S/p Right lower extremity above-knee popliteal artery to peroneal artery 05/04
PAD- s/p RLE revascularization (05/04/24)
CAD
History of poor wound healing
- wound cultures - ESBL E. coli and Diphtheroid
- QTc 435
- wound vac in place
- patient at high risk for progression of infection to osteomyelitis, continue 6 week course of IV ertapenem and vancomycin 05/04-06/14
- PICC in place
- awaiting placement
Chief Complaint
-: Other (diabetic foot infection)
Subjective / Review of Systems
afebrile
tolerating current therapies
further bedside debridement per podiatry yesterday - scant bleeding reported, tissue 'slightly more viable'
Vital Signs / Physical Exam
Vital Signs
Vital Signs
Temp Pulse Resp BP Pulse Ox
97.7 F 66 18 136/65 99
05/14/24 07:00 05/14/24 07:00 05/14/24 07:00 05/14/24 07:00 05/14/24 08:00
Physical Exam
Constitutional: No Acute Distress
Cardiovascular: Regular Rate
Pulmonary: Non Labored
Gastrointestinal: Non Distended
Neurological: Negative Awake
Objective Data
Lab Data
Lab Results
05/11/24 06:23
05/14/24 05:18
PT 16.2 Sec (11.4-14.6) H 05/05/24 04:26
INR 1.32 05/05/24 04:26
APTT 34.3 Sec (23.4-35.0) 05/05/24 04:26
Estimated Creat Clear 110 ml/min 05/14/24 05:18
Total Bilirubin 0.4 mg/dl (0.2-1.3) 04/29/24 06:54
AST 25 U/L (17-59) 04/29/24 06:54
ALT 27 U/L (0-50) 04/29/24 06:54
Alkaline Phosphatase 117 U/L (38-126) 04/29/24 06:54
Most recent labs reviewed.
Micro Results:
04/28/24 19:49 Wound Culture - Final
Heel - Right Escherichia coli - ESBL
Gram Stain - Final
04/28/24 22:49 MRSA Screen - Final
Nose No Methicillin Resistant Staphylococcus aureus isolated.
SPEC #: [id number] GLORY: 04/28/24
SOURCE: HEEL
SPDESC: Right
ORDERED: Wound/Other
Wound/abscess/other Cult Final
Many Escherichia coli - ESBL*
Few Diptheroids
Organism 1 Escherichia coli - ESBL
1. Escherichia coli - ESBL
M.I.C. RX
--------- ---
Amoxicillin/Potas. Clavulanate >16/8 R
Ampicillin >16 R
Ampicillin/Sulbactam <=8/4 S
Cefazolin >16 R
Cefepime <=2 S
Ceftazidime 8 I
Ceftriaxone >2 R
Ertapenem <=0.5 S
Ciprofloxacin <=0.25 S
Gentamicin <=4 S
Levofloxacin <=0.5 S
Meropenem <=1 S
Piperacillin/Tazobactam <=16 S
Tobramycin <=4 S
Trimethoprim/Sulfamethoxazole <=2/38 S
--- NOTE | 2024-05-14 14:45 | W.PN.REHAB ---
Today's Communication / Plan
-
Discharge Destination: intermediate facility given wounds, wound VAC, and need for prolonged antibiotics multiple times a day.
- If not able, would consider acute rehab if patient able to do home antibiotics, would have to clear with insurance for availability. Could get wound care at home for wound vac.
Communicated plan with Dr. Nicole. Answered all of patient's questions.
Assessment/Function
-
Assessment:
Physical Exam:�
General Appearance/Observation: Well-developed, well-nourished male in no apparent distress.�
Pain/Comfort Assessment: Mild right leg
Mood/Affect: Appropriate�
�
Integumentary/Operative Site:�Significant medial right lower extremity incisions with derik, minimal slough in the inguinal area derik. Right foot with wound vac.
�
Eyes: Conjunctiva/Lids: normal���� Pupils: pupils equal round and reactive to light and Accommodation�
Ears/Nose/Throat: oral mucosa moist,� throat clear.������������ Lips/Teeth/Gums: normal�
Cardiovascular: Heart: regular, no murmur�
Respiratory: Respiratory Effort/Chest Expansion: normal������� Auscultation: Clear to auscultation bilaterally�
Gastrointestinal: abdomen not tender, no distension, normal abdominal bowel sounds
Genitourinary: No farah
Extremities:�Edema: Right lower extremity edema�cyanosis: None�Trophic�changes: None
�
Neurology Exam:
Orientation: Alert, Oriented to self, Time, Place�
Memory: Intact for recent medical concerns
Comprehension: Intact
Two step command: Intact
Cranial Nerves:
�� CN VII:�Facial movement: Symmetric
�� CN VIII:�Hearing: Normal
�� CN IX/X:�Speech: Normal�
Sensory:
�� Light touch: Absent for most of bilateral feet occasional minimal sensation laterally. Can feel ankles.
�
Musculoskeletal: Motor: (Manual muscle scale 0-5)�
Muscle SA EF WE EE FF FA HF KE DF EHL PF
Right� 5 5 5 1* 2* 4 4 4
Left 5 5 5 4 5 5 5 5
�Tone: Normal in all extremities�
Range of Motion: Passively within functional limits in all extremities�
Function:
Bed Mobility:
Transfers: Min assist
Ambulation: Min assist ambulating 40 feet x 2 with rolling walker
Steps:
ADL's: Mod assist lower extremity self-care
Plan
-
Assessment
79-year-old male [facility] (diabetes, diabetic neuropathy, hyperlipidemia, prior amputation of right second and third toe and left third toe, peripheral vascular disease status post bypass of left lower extremity, prior stent right lower extremity,
hypercholesterolemia, subdural hematoma) s/p 05/04/2024 right lower extremity [id number] popliteal artery to peroneal artery and 05/05/2024 he had a debridement of the right heel with ADL and ambulatory dysfunction.
Plan�
PM&R PT/OT to increase independence with ADLs, improve balance, coordination, endurance, strength, mobility, community reintegration, decreased burden of care on others and family education.�
�
Diabetic foot infection with probable osteomyelitis of the right heel: Continue antibiotics for 6 weeks per ID. Will need vancomycin twice a day and ertapenem daily. Still with leukocytosis.
Status post right [id number] popliteal artery to peroneal artery bypass: Monitor incisions, pain control
Right heel debridement: Stage IV diabetic heel wound with healing guarded per podiatry. Wound VAC. Ambulation decision with wound/wound VAC as per podiatry.
�
HTN: Lisinopril, monitor closely�
HLD: Statin�
Peripheral artery disease : Aspirin, statin
Uncontrolled diabetes type 2 with neuropathy: Accu-Cheks, insulin sliding scale, metformin, lantus.�
Nocturnal hypoxia: Oxygen at night, will need sleep study
Postoperative anemia: Continue to monitor.�
Pain: acetaminophen or oxycodone as needed.�
Bowel: Colace and Senna, PRN bisacodyl.�
Bladder: Flomax time void, PVRs, PRN straight cath.�
DVT Prophylaxis: Mechanical and heparin/apixaban. Sent message to Dr. Gayle to clarify need for both.
Pulmonary: Incentive spirometry�
Safety: Continue to reinforce assistance with all transfers.�
Code Status:� Full code
Dispo (date/plan/equipment needs): Home with family care.� Social history reviewed.�
Discharge Destination: intermediate facility given wounds, wound VAC, and need for prolonged antibiotics multiple times a day.
- If not able, would consider acute rehab if patient able to do home antibiotics, would have to clear with insurance for availability. Could get wound care at home for wound vac.
Communicated plan with Dr. Nicole. Answered all of patient's questions.
A total of 50 minutes were spent with the patient preparing for the evaluation, obtaining history, performing examination and evaluation, counseling, data review, case management, care coordination, expediter service order, and EMR documentation.
Subjective
-
Patient seen and examined today. Overall continues to make progress. Concerned about his foot healing, was told to limit walking on it. Concerned about getting to the best facility he can. Denies any fevers, chills, chest pain, shortness of
breath, nausea, vomiting, abdominal pain, dysuria, or diarrhea. Tolerating therapy.
Vital Signs / Labs
-
Vital Signs and Labs:
Temp Pulse Resp BP Pulse Ox
97.7 F 66 18 136/65 99
05/14/24 07:00 05/14/24 07:00 05/14/24 07:00 05/14/24 07:00 05/14/24 08:00
05/11/24 06:23
05/14/24 05:18
05/13/24 05/13/24 05/13/24
16:33 21:26 21:43
BUN
Creatinine
Vancomycin Peak 26.2 H
POC Glucose 153 H > 600 H*
05/13/24 05/14/24 05/14/24
21:49 05:18 07:22
BUN 25 H
Creatinine 0.6 L
Vancomycin Peak
POC Glucose 137 H 172 H
05/14/24
12:11
BUN
Creatinine
Vancomycin Peak
POC Glucose 221 H
--- NOTE | 2024-05-14 16:54 | WOUNDNOTE ---
WOC RN note: Lometa texted with Dr. Erickson this afternoon and plan is to change patient's heel vac dressing tomorrow at 0730. Updated RN Carmen via tiger text. Patient did not require pain med with last vac change as per Carmen.
[2024-05-14 16:58] LABS: Glucose - Point of Care 205 mg/dl (70-99)
[2024-05-14] MEDS: CRESTOR 20 MG PO (17:00)
[2024-05-14 21:17] LABS: Glucose - Point of Care 170 mg/dl (70-99)
[2024-05-14 23:46] VITALS: BP 152/65
[2024-05-15 06:00] VITALS: BMI 27.1
[2024-05-15] MEDS: VANCOCIN 300 MG IV (06:07)
[2024-05-15] MEDS: VANCOCIN 300 ML IV (06:07)
[2024-05-15 07:00] VITALS: BP 139/62
--- NOTE | 2024-05-15 07:23 | PN.DE.MGMTRT ---
Insulin Management
- -
05/15/2024: Diabetes Management F/U:
79 year old male admitted 04/28 with Right heel wound, possible osteomyelitis. PMH: PVD, CAD, HTN, HLD, PVD, prior amputation of R 2nd & 3rd toe and left 3rd toe, s/p bypass of LLE, prior stent to RLE, subdural hematoma, Diabetic Neuropathy and
T2DM.
Now POD #7 s/p RLE above-knee popliteal artery to peroneal artery using ipsilateral non-reversed great saphenous vein.
Diabetes management Consult requested on 05/10. Was taking Ozempic 1mg Q Mondays, Toujeo 20 units daily, Xigduo BID and Repaglinide 1mg TID. A1C 7.9%, Cr 0.6, eGFR >60.
Pt awake, A/O x3, sitting up in bed, offers no complaints, able to discuss diabetes mgt
Glucose remains stable and in range, premeal 1725 to 221, fasting 163 this AM.
Will cont current regimen: Lantus 20 units in AM, Prandin 1mg TID, Farxiga 5mg BID, Metformin 1000mg BID and low corrective with meals
Diabetes plan of care discussed with pt and Nurse
Diabetes History
- -
Type of Diabetes: 2 requiring insulin
Pre-Admission Diabetes Regimen
Lab Results
Hemoglobin A1c 7.9 % (4.0-5.6) H 04/29/24 06:54
Insulin Pump Settings
IP Diabetes Regimen
05/14/24 05/14/24 05/14/24
07:22 12:11 16:56
POC Glucose 172 H 221 H 205 H
05/14/24
21:15
POC Glucose 170 H
Meal type: Lunch
Meal type: Breakfast
Amount consumed: 100%
Amount consumed: 100%
Patient Education
[2024-05-15 08:20] LABS: Glucose - Point of Care 163 mg/dl (70-99)
--- NOTE | 2024-05-15 08:20 | PHA.VAN.FU ---
Vancomycin Assessment / Plan
- Assessment
Renal Function: Stable
WBC's are: WNL
In the past 24 hrs, patient has been: Afebrile
Concomitant Antimicrobials: ertapenem
- Dosing Plan
Continue: Vanc 1500mg Q24H infused over 2 hours
- Monitoring Plan
No level(s) ordered at this time: consider level(s) early next week to assess new regimen
- Follow Up
Pharmacy will continue to follow.
Vancomycin Follow UP
- -
Patient Age: 79
Patient Sex: Male
Vancomycin Day #: 18
Indication: Bone And Joint
Requesting Provider: Dr. Stiles / Chitra
Pertinent Antimicrobial Allergies:
NKDA
Height / Weight:
Height 5 ft 11 in
Actual Weight 88.054 kg
IBW in k.3
Adjusted BW in k.5
Pertinent Past Medical History: DM 2, PVD
- Vital Signs / Lab Results
Temp Pulse Resp BP Pulse Ox
97.6 F 66 16 152/65 96
05/14/24 23:46 05/14/24 23:46 05/14/24 23:46 05/14/24 23:46 05/14/24 23:53
Lab Results - Chemistry
05/14/24
05:18
BUN 25 H
Creatinine 0.6 L
Estimated Creat Clear 110
Therapeutic Drug Monitoring
Vancomycin Peak 26.2 ug/ml (18-26) H 05/13/24 21:26
Vancomycin Trough 18.3 ug/ml (5-20) 05/14/24 05:18
[2024-05-15] MEDS: FLOMAX 0.4 MG PO (08:22)
--- NOTE | 2024-05-15 08:24 | WOUNDNOTE ---
R PLANTAR HEEL (after debridement bedside by mobile nurse)
--- NOTE | 2024-05-15 08:24 | WOUNDNOTE ---
R PLANTAR HEEL (with photo flash) (after debridement bedside by filter tip catcher)
[2024-05-15] MEDS: OCUVITE SOFTGEL 2 CAP PO (08:25)
[2024-05-15] MEDS: GLUCOPHAGE 1000 MG PO ×2 (08:25→17:12)
[2024-05-15] MEDS: FARXIGA 5 MG PO ×2 (08:25→17:12)
--- NOTE | 2024-05-15 08:25 | WOUNDNOTE ---
R PLANTAR HEEL (MEDIAL)
[2024-05-15] MEDS: VISBIOME 1 CAP PO (08:26)
[2024-05-15] MEDS: THERAGRAN 1 TABLET PO (08:26)
[2024-05-15] MEDS: XARELTO 2.5 MG PO ×2 (08:26→20:31)
[2024-05-15] MEDS: LOW STRENGTH ASPIRIN 81 MG PO (08:26)
[2024-05-15] MEDS: PRANDIN 1 MG PO ×3 (08:26→17:12)
--- NOTE | 2024-05-15 08:26 | WOUNDNOTE ---
R PLANTAR HEEL (MEDIAL)
[2024-05-15] MEDS: DESENEX/MITRAZOL/ZEASORB 1 APPLIC TOPICAL ×2 (08:27→20:30)
[2024-05-15] MEDS: DAKIN'S SOLUTION 0.125% 1/4 STRENGTH 1 ML TOPICAL (08:27)
[2024-05-15] MEDS: NOVOLOG FLEXPEN-LOW RESISTANCE 1 UNITS SC (08:27)
--- NOTE | 2024-05-15 08:27 | WOUNDNOTE ---
[facility] RN note: Patient's R heel vac dressing changed with Dr. Erickson. Wound with fibrinous meadows tissue with pink edges. Small amount of ss drainage in vac canister. Vac canister changed. Dr. Erickson debrided wound at bedside. Patient tolerated well. R
pedal pulse heard via portable Doppler. L heel blanchable red. Sacrum blanchable mild red and intact. Patient is able to turn self in bed and lift heels off bed. Instructed patient importance to keep both heels off bed with pillows at all times.
Instructed pressure injury prevention measures. Air chair cushion in chair. Appetite good.
[2024-05-15] MEDS: LANTUS 0.2 UNITS SC (08:28)
[2024-05-15] MEDS: SANTYL OINTMENT 1 APPLIC TOPICAL (08:29)
[2024-05-15] MEDS: COLACE 100 MG PO ×2 (08:30→20:30)
--- NOTE | 2024-05-15 08:30 | WOUNDNOTE ---
Plan is to meet Dr. Erickson at 0730 on Saturday if patient still here for next vac dressing change. Instructed WILNER Cox that nursing is to remove R heel vac when transferred to SNF rehab and apply saline moistened gauze, dry gauze, abd pad, Kerlix
(Santyl can be applied) for transfer and SNF/rehab applies their own wound vac.
--- NOTE | 2024-05-15 11:31 | W.PN.VS ---
Addendum entered and electronically signed by Medardo Frey III, MD 05/15/24 16:24:
This patient was seen and examined with Carissa Webster MD PGY-1. I agree with the history and physical exam as well as the assessment and plan. I have the following additions:
Will plan for short interval follow-up in the office
Local wound care with VAC
He should be set up with the [facility] wound care center and be evaluated for initiation of HBOT
Signed:
Medardo Frey III, MD
[facility] Vascular Surgery
[phone] (cell)
Original Note:
Today's Communication / Plan
-
*Wound VAC, will discuss with podiatry possible debridement this admission
Assessment/Plan
-
ASSESSMENT:
79 yo Male POD#11 s/p - R-LE Popliteo-Peroneal Artery Bypass W. ipsilateral non-reversed GSV graft for nonhealing necrotic right heel wound.
PLAN:
Out of bed to chair/ambulate
Wound VAC, will discuss with podiatry possible debridement this admission
-
Total Time Spent with Patient (in minutes): ~10 Min
Subjective Data
-
Date of Service: May 15, 2024
Pt was seen and evaluated at bedside this morning with attending physician.
No acute events O/N
Pt stated he feels-well / Had no complains this morning
Pain under control
Denies any N/V, LE Poikilothermia, numbness or paleness
Objective Data
-
Vital Signs
Temp Pulse Resp BP Pulse Ox
36.5 C 58 16 139/62 95
05/15/24 07:00 05/15/24 07:00 05/15/24 07:00 05/15/24 07:00 05/15/24 11:09
Intake and Output
05/14/24 05/15/24 05/16/24
06:59 06:59 06:59
Intake Total 990 / 990 600 / 600
Output Total 1500 / 1500 3375 / 3375
Balance -510 / -510 -2775 / -2775
Intake:
Oral fluids 990 / 990 600 / 600
Output:
Urine, Voided 1500 / 1500 3375 / 3375
Other:
Number of approximated MODERATE 2
amounts of urine
Lab Results
05/11/24 06:23
05/14/24 05:18
Calcium 8.5 mg/dl (8.4-10.2) 05/11/24 06:23
Total Bilirubin 0.4 mg/dl (0.2-1.3) 04/29/24 06:54
AST 25 U/L (17-59) 04/29/24 06:54
ALT 27 U/L (0-50) 04/29/24 06:54
Alkaline Phosphatase 117 U/L (38-126) 04/29/24 06:54
Total Protein 6.0 g/dl (6.3-8.2) L 04/29/24 06:54
Albumin 3.4 g/dl (3.5-5.0) L 04/29/24 06:54
Physical Exam
-
VITALS:
STABLE
PE:
Comfortably sitting at the side of the bed this morning
GEN- AAOx3 / In NAD / Hemodynamically stable
HEENT- EOMI
MSK- LE pulses + bilaterally / No paleness / No Poikilothermia
Incisions- CDI / Sutures/Taylor in place / No Erythema / No Drainage
--- NOTE | 2024-05-15 12:09 | CM ---
Addendum entered by Jim Chand 05/15/24 17:01:
Krys at [facility] notified of denial and Peer to Peer.
Addendum entered by Jim Chand 05/15/24 16:20:
Physician Advisor spoke to Paul at [facility]. He said he will try to have someone call him today before 5pm but he said he was doubtful that would happen. Dr. Nguyen name and phone number were provided as she is working next week. Peer to Peer
possibly will be delayed to
Saturday.
Addendum entered by Jim Chand 05/15/24 16:02:
has denied admission to [facility] acute rehab. Fishing Line Winding Machine Operator feels patient is better served in a SNF and unable to manage acute rehab. Peer to Peer is offered # [phone] Reference # [id number]. No completion date give. Attending
notified as well as Physician Advisor who has agreed to call for Peer to Peer. Notified patient and daughter. Daughter is concerned because she has gone to many SNF's and feels patient will become depressed in SNF environment. Will await P2P
results.
Original Note:
Spoke to Krys at [facility]. They are able to accept patient on Saturday05/16/24 if insurance auth is approved. [facility] NPI is [id number], Accepting MD is Dr. Moyer and NPI is [id number].
NURSE TO NURSE REPORT # [phone]
FAX # [phone]
This CM initiated auth which was sent to the medical van driver for review. PENDING REFERENCE # [id number]. Awaiting determination.
[2024-05-15 12:28] LABS: Glucose - Point of Care 217 mg/dl (70-99)
[2024-05-15] MEDS: NOVOLOG FLEXPEN-LOW RESISTANCE 2 UNITS SC ×2 (12:29→17:12)
[2024-05-15] MEDS: INVANZ 60 MG IV (14:13)
[2024-05-15 15:00] VITALS: BP 139/56
[2024-05-15 16:30] VITALS: BP 139/56; O2SAT 99
[2024-05-15 16:37] LABS: Glucose - Point of Care 208 mg/dl (70-99)
--- NOTE | 2024-05-15 16:44 | W.PN.ID1 ---
Date of Service
Date of Service: May 15, 2024
Today's Communication
- continue 6 week course of IV ertapenem and vancomycin 05/04-06/14
- PICC in place
- cbc, cmp, vanc trough at least weekly on mondays moving forward
Assessment / Plan
Diabetic Foot Infection
Suspected Osteomyelitis of the (R) heel
S/p Right lower extremity above-knee popliteal artery to peroneal artery 05/04
PAD- s/p RLE revascularization (05/04/24)
CAD
History of poor wound healing
- wound cultures - ESBL E. coli and Diphtheroid
- QTc 435
- wound vac in place
- continue 6 week course of IV ertapenem and vancomycin 05/04-06/14
- PICC in place
- cbc, cmp, vanc trough at least weekly on mondays moving forward
- awaiting placement
Chief Complaint
-: Other (diabetic foot infection)
Subjective / Review of Systems
afebrile
placement a challenge
Vital Signs / Physical Exam
Vital Signs
Vital Signs
Temp Pulse Resp BP Pulse Ox
97.7 F 58 16 139/62 95
05/15/24 07:00 05/15/24 07:00 05/15/24 07:00 05/15/24 07:00 05/15/24 11:09
Physical Exam
Constitutional: No Acute Distress
Cardiovascular: Regular Rate
Pulmonary: Symmetric and Non Labored
Gastrointestinal: Non Distended
Neurological: Awake
Objective Data
Lab Data
Lab Results
05/11/24 06:23
05/14/24 05:18
PT 16.2 Sec (11.4-14.6) H 05/05/24 04:26
INR 1.32 07/30/24 04:26
APTT 34.3 Sec (23.4-35.0) 05/05/24 04:26
Estimated Creat Clear 110 ml/min 05/14/24 05:18
Total Bilirubin 0.4 mg/dl (0.2-1.3) 04/29/24 06:54
AST 25 U/L (17-59) 04/29/24 06:54
ALT 27 U/L (0-50) 04/29/24 06:54
Alkaline Phosphatase 117 U/L (38-126) 04/29/24 06:54
Most recent labs reviewed.
Micro Results:
04/28/24 19:49 Wound Culture - Final
Heel - Right Escherichia coli - ESBL
Gram Stain - Final
04/28/24 22:49 MRSA Screen - Final
Nose No Methicillin Resistant Staphylococcus aureus isolated.
SPEC #: [id number] GLORY: 04/28/24
SOURCE: HEEL
SPDESC: Right
ORDERED: Wound/Other
Wound/abscess/other Cult Final
Many Escherichia coli - ESBL*
Few Diptheroids
Organism 1 Escherichia coli - ESBL
1. Escherichia coli - ESBL
M.I.C. RX
--------- ---
Amoxicillin/Potas. Clavulanate >16/8 R
Ampicillin >16 R
Ampicillin/Sulbactam <=8/4 S
Cefazolin >16 R
Cefepime <=2 S
Ceftazidime 8 I
Ceftriaxone >2 R
Ertapenem <=0.5 S
Ciprofloxacin <=0.25 S
Gentamicin <=4 S
Levofloxacin <=0.5 S
Meropenem <=1 S
Piperacillin/Tazobactam <=16 S
Tobramycin <=4 S
Trimethoprim/Sulfamethoxazole <=2/ S
[2024-05-15] MEDS: CRESTOR 20 MG PO (17:11)
[2024-05-15 19:30] VITALS: BP 124/63
[2024-05-15 20:19] VITALS: BP 124/63
[2024-05-15 21:39] LABS: Glucose - Point of Care 136 mg/dl (70-99)
[2024-05-16 00:04] VITALS: BP 128/64
[2024-05-16] MEDS: VANCOCIN 300 MG IV (06:12)
[2024-05-16] MEDS: VANCOCIN 300 ML IV (06:12)
[2024-05-16 07:05] VITALS: BP 119/67
[2024-05-16 07:30] LABS: Glucose - Point of Care 129 mg/dl (70-99)
[2024-05-16] MEDS: LOW STRENGTH ASPIRIN 81 MG PO (07:47)
[2024-05-16] MEDS: GLUCOPHAGE 1000 MG PO ×2 (07:47→16:14)
[2024-05-16] MEDS: FLOMAX 0.4 MG PO (07:47)
[2024-05-16] MEDS: OCUVITE SOFTGEL 2 CAP PO (07:47)
[2024-05-16] MEDS: XARELTO 2.5 MG PO ×2 (07:47→19:45)
[2024-05-16] MEDS: FARXIGA 5 MG PO ×2 (07:48→16:14)
[2024-05-16] MEDS: PRANDIN 1 MG PO ×3 (07:48→16:14)
[2024-05-16] MEDS: VISBIOME 1 CAP PO (07:48)
[2024-05-16] MEDS: THERAGRAN 1 TABLET PO (07:48)
[2024-05-16] MEDS: COLACE 100 MG PO ×2 (07:49→19:46)
[2024-05-16] MEDS: NOVOLOG FLEXPEN-LOW RESISTANCE SC ×2 (07:49→16:16)
--- NOTE | 2024-05-16 08:03 | PHA.VAN.FU ---
Vancomycin Assessment / Plan
- Assessment
Renal Function: No New Labs Today
In the past 24 hrs, patient has been: Afebrile
Concomitant Antimicrobials: ERTAPENEM
- Dosing Plan
Continue: 1500MG Q24H
- Monitoring Plan
No level(s) ordered at this time: CONSIDER FOR FRIDAY 05/18
- Follow Up
Pharmacy will continue to follow.
Vancomycin Follow UP
- -
Patient Age: 79
Patient Sex: Male
Vancomycin Day #: 19
Indication: Bone And Joint
Requesting Provider: Dr. Stiles / Chitra
Pertinent Antimicrobial Allergies:
NKDA
Height / Weight:
Height 5 ft 11 in
Actual Weight 88.054 kg
IBW in k.3
Adjusted BW in k.5
Pertinent Past Medical History: DM 2, PVD
- Vital Signs / Lab Results
Temp Pulse Resp BP Pulse Ox
97.7 F 70 16 128/64 97
05/16/24 00:04 05/16/24 00:04 05/16/24 00:04 05/16/24 00:04 05/16/24 01:13
Lab Results - Chemistry
05/14/24
05:18
BUN 25 H
Creatinine 0.6 L
Estimated Creat Clear 110
Therapeutic Drug Monitoring
Vancomycin Peak 26.2 ug/ml (18-26) H 05/13/24 21:26
Vancomycin Trough 18.3 ug/ml (5-20) 05/14/24 05:18
[2024-05-16] MEDS: DAKIN'S SOLUTION 0.125% 1/4 STRENGTH 1 ML TOPICAL (08:15)
[2024-05-16] MEDS: DESENEX/MITRAZOL/ZEASORB 1 APPLIC TOPICAL ×2 (08:16→19:45)
[2024-05-16] MEDS: LANTUS 0.2 UNITS SC (08:17)
[2024-05-16] MEDS: SANTYL OINTMENT 1 APPLIC TOPICAL (08:17)
--- NOTE | 2024-05-16 09:42 | W.PN.HOSP.TC ---
Today's Communication/Plan
-
dc
Assessment / Plan
Assessment / Plan
Physical Exam
-
General: No Apparent Distress
HEENT: Normocephalic and Atraumatic
Respiratory: Negative Wheezes
Cardiac: Regular Rhythm and S1/S2
GI: Soft
Genito-urinary: No Costovertebral Tender
Neuro: AO x 3
Psych: Calm
Assessment:
Right heel ulcer, possible osteomyelitis
- MRI: Focal small soft tissue defect involving the superficial plantar soft tissues, inferior to the calcaneus. No evidence of collection to suggest abscess. No evidence for osteo myelitis. Intermediate T1-weighted signal within the subcutaneous
soft tissues off the plantar aspect of the posterior and inferior calcaneus, without significant enhancement postcontrast. This could represent soft tissue callus and/or relatively devascularize soft tissues. No evidence of collection. No evidence
for osteomyelitis of the calcaneus. Numerous prominent tortuous enhancing varicose veins within the medial soft tissues of the right lower leg and ankle.
- continue Vanco (requires intensive monitoring of levels) and Ertapenem per ID x 6 weeks. ESBL in culture. WBC stable
- s/p Right Distal Popliteal - Peroneal artery bypass (SVG) on 05/04. OP Vascular f/u
- s/p excisional bedside debridement 05/06 by Podiatry, OP f/u
- continue wound care per Podiatry/Vascular
- wound VAC being applied
# E coli/ UTI
Already receiving IV Abx. NO fever or dysuria.
Hyponatremia, mild
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
- improved with slower infusion
LUE Vancomycin infiltrate
- on Hylenex protocol with VATS team
Nocturnal hypoxia
- desats nocturnally to 78%
- Patient is in need of oxygen at 2 liters/minute via nasal cannula continuously nocturnally due to pulse oximetry of 78% on room air at rest. Oxygen will help to improve hypoxemia. Patient is mobile within the home. DuoNeb therapy has been tried
and is ineffective in treating hypoxemia related symptoms. Oxygen is needed to improve symptoms.
- possibly has sleep apnea; sleep study outpatient recommended
Anemia due to acute blood loss from OR and hemodilution
- monitor. HGB stable at 10
History of osteomyelitis status post amputation of left third toe, right second/third toes
Peripheral vascular disease status post bypass of left lower extremity/stent of right lower extremity
Type 2 diabetes
- hypoglycemic from poor appetite post-op
- insulin sliding scale
- resume Lantus at 12 units
- HGB A1C 7.9
- resumed Metformin
- AGRICULTURAL CHEMICALS INSPECTOR consulted
- Resume repaglinide, dapagliflozin
#Diabetic neuropathy
# Acute urinary retention
Voiding Trial
# Hyperkalemia, resolved
Hyperlipidemia
- continue statin
History of subdural hematoma
Essential hypertension
- continue lisinopril
DVT ppx: Heparin
Code: Full
Total time spent to see the patient, examine the patient on the floor, review data and lab results, discuss treatment plan with patient, nursing staff around 45 minutes.
Anticipated Discharge: Today
Subjective/Interval History
-
Date of Service: May 16, 2024
No complaints
Objective Data
-
Vital Signs:
Vital Signs
Temp Pulse Resp BP Pulse Ox
97.8 F 65 16 119/67 100
05/16/24 07:05 05/16/24 07:05 05/16/24 07:05 05/16/24 07:05 05/16/24 07:05
I&O
05/15/24 05/16/24 05/17/24
06:59 06:59 06:59
Intake Total 600 / 600 980 / 980
Output Total 3375 / 3375 850 / 1350 500 / 500
Balance -2775 / -2775 130 / -370 -500 / -500
[2024-05-16 12:11] LABS: Glucose - Point of Care 157 mg/dl (70-99)
[2024-05-16] MEDS: NOVOLOG FLEXPEN-LOW RESISTANCE 1 UNITS SC (12:56)
[2024-05-16] MEDS: INVANZ 60 MG IV (13:00)
--- NOTE | 2024-05-16 15:24 | CM ---
CM received call from daughter requesting update on acute denial and outcome of P2P
Explained P2P and denial follow up will happen Saturday
She is requesting names of physician following on Saturday- alerted schedule not available at this time
She is requesting updates on her call Teetee/[phone]
Discharge Disposition- [facility] acute rehab pending outcome of P2P
[2024-05-16 15:28] VITALS: BP 116/67
[2024-05-16 16:18] LABS: Glucose - Point of Care 146 mg/dl (70-99)
[2024-05-16] MEDS: CRESTOR 20 MG PO (17:33)
[2024-05-16 21:33] LABS: Glucose - Point of Care 168 mg/dl (70-99)
[2024-05-16 22:58] VITALS: BP 130/60
[2024-05-17] MEDS: VANCOCIN 300 ML IV (06:01)
[2024-05-17] MEDS: VANCOCIN 300 MG IV (06:01)
--- NOTE | 2024-05-17 07:04 | W.PN.HOSP.TC ---
Today's Communication/Plan
-
dc
Assessment / Plan
Assessment / Plan
Physical Exam
-
General: No Apparent Distress
HEENT: Normocephalic and Atraumatic
Respiratory: Negative Wheezes
Cardiac: Regular Rhythm and S1/S2
GI: Soft
Genito-urinary: No Costovertebral Tender
Neuro: AO x 3
Psych: Calm
Assessment:
Right heel ulcer, possible osteomyelitis
- MRI: Focal small soft tissue defect involving the superficial plantar soft tissues, inferior to the calcaneus. No evidence of collection to suggest abscess. No evidence for osteo myelitis. Intermediate T1-weighted signal within the subcutaneous
soft tissues off the plantar aspect of the posterior and inferior calcaneus, without significant enhancement postcontrast. This could represent soft tissue callus and/or relatively devascularize soft tissues. No evidence of collection. No evidence
for osteomyelitis of the calcaneus. Numerous prominent tortuous enhancing varicose veins within the medial soft tissues of the right lower leg and ankle.
- continue Vanco (requires intensive monitoring of levels) and Ertapenem per ID x 6 weeks. ESBL in culture. WBC stable
- s/p Right Distal Popliteal - Peroneal artery bypass (SVG) on 05/04. OP Vascular f/u
- s/p excisional bedside debridement 05/06 by Podiatry, OP f/u
- continue wound care per Podiatry/Vascular
- wound VAC being applied
# E coli/ UTI
Already receiving IV Abx. NO fever or dysuria.
Hyponatremia, mild
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
- improved with slower infusion
LUE Vancomycin infiltrate
- on Hylenex protocol with VATS team
Nocturnal hypoxia
- desats nocturnally to 78%
- Patient is in need of oxygen at 2 liters/minute via nasal cannula continuously nocturnally due to pulse oximetry of 78% on room air at rest. Oxygen will help to improve hypoxemia. Patient is mobile within the home. DuoNeb therapy has been tried
and is ineffective in treating hypoxemia related symptoms. Oxygen is needed to improve symptoms.
- possibly has sleep apnea; sleep study outpatient recommended
Anemia due to acute blood loss from OR and hemodilution
- monitor. HGB stable at 10
History of osteomyelitis status post amputation of left third toe, right second/third toes
Peripheral vascular disease status post bypass of left lower extremity/stent of right lower extremity
Type 2 diabetes
- hypoglycemic from poor appetite post-op
- insulin sliding scale
- resume Lantus at 12 units
- HGB A1C 7.9
- resumed Metformin
- RESTAURANT WORKER consulted
- Resume repaglinide, dapagliflozin
#Diabetic neuropathy
# Acute urinary retention
Voiding Trial
# Hyperkalemia, resolved
Hyperlipidemia
- continue statin
History of subdural hematoma
Essential hypertension
- continue lisinopril
DVT ppx: Heparin
Code: Full
Total time spent to see the patient, examine the patient on the floor, review data and lab results, discuss treatment plan with patient, nursing staff around 45 minutes.
Anticipated Discharge: Today
Subjective/Interval History
-
Date of Service: May
No complaints
anxious to leave hospital
Note of 05/15/24
Objective Data
-
Vital Signs:
Vital Signs
Temp Pulse Resp BP Pulse Ox
97.7 F 64 16 130/60 100
05/16/24 22:58 05/16/24 22:58 05/16/24 22:58 05/16/24 22:58 05/17/24 03:33
I&O
05/16/24 05/17/24 05/18/24
06:59 06:59 06:59
Intake Total 980 / 980 870 / 870
Output Total 850 / 1350 1875 / 1875
Balance 130 / -370 -1005 / -1005
[2024-05-17 07:14] VITALS: BP 135/60
--- NOTE | 2024-05-17 07:55 | PHA.VAN.FU ---
Vancomycin Assessment / Plan
- Assessment
Renal Function: No New Labs Today
In the past 24 hrs, patient has been: Afebrile
Concomitant Antimicrobials: ERTAPENEM
- Dosing Plan
Continue: 1500MG Q24H
- Monitoring Plan
Peak Level: 05/18 @0900
Trough Level: 05/19 @0530
- Follow Up
Pharmacy will continue to follow.
Vancomycin Follow UP
- -
Patient Age: 79
Patient Sex: Male
Vancomycin Day #: 20
Indication: Bone And Joint
Requesting Provider: Dr. Stiles / Chitra
Pertinent Antimicrobial Allergies:
NKDA
Height / Weight:
Height 5 ft 11 in
Actual Weight 88.054 kg
IBW in k.3
Adjusted BW in k.5
Pertinent Past Medical History: DM 2, PVD
- Vital Signs / Lab Results
Temp Pulse Resp BP Pulse Ox
98.6 F 62 16 135/60 98
05/17/24 07:14 05/17/24 07:14 05/17/24 07:14 05/17/24 07:14 05/17/24 07:14
Therapeutic Drug Monitoring
Vancomycin Peak 26.2 ug/ml (18-26) H 05/13/24 21:26
Vancomycin Trough 18.3 ug/ml (5-20) 05/14/24 05:18
[2024-05-17 08:32] LABS: Glucose - Point of Care 136 mg/dl (70-99)
[2024-05-17] MEDS: NOVOLOG FLEXPEN-LOW RESISTANCE SC ×2 (09:01→16:57)
[2024-05-17] MEDS: COLACE PO (09:02)
[2024-05-17] MEDS: DESENEX/MITRAZOL/ZEASORB TOPICAL (09:03)
[2024-05-17] MEDS: DAKIN'S SOLUTION 0.125% 1/4 STRENGTH TOPICAL (09:03)
[2024-05-17] MEDS: SANTYL OINTMENT TOPICAL (09:05)
[2024-05-17] MEDS: GLUCOPHAGE 1000 MG PO ×2 (09:06→17:06)
[2024-05-17] MEDS: FARXIGA 5 MG PO ×2 (09:06→17:06)
[2024-05-17] MEDS: VISBIOME 1 CAP PO (09:06)
[2024-05-17] MEDS: THERAGRAN 1 TABLET PO (09:06)
[2024-05-17] MEDS: XARELTO 2.5 MG PO ×2 (09:06→20:24)
[2024-05-17] MEDS: LOW STRENGTH ASPIRIN 81 MG PO (09:07)
[2024-05-17] MEDS: FLOMAX 0.4 MG PO (09:07)
[2024-05-17] MEDS: PRANDIN 1 MG PO ×3 (09:07→17:06)
[2024-05-17] MEDS: OCUVITE SOFTGEL 2 CAP PO (09:07)
[2024-05-17] MEDS: LANTUS 0.2 UNITS SC (09:09)
--- NOTE | 2024-05-17 11:28 | CM ---
CM received call from dtr/Jany requesting to further discussion P2P process
Dtr requesting to speak with physician advisor directly today
Would like to ensure physician has proper medical info while completing P2P
Aware physician advisors not available on the weekends
Dtr voiced numerous concerns about SNF
Wants to ensure proper wound care for pt which she believes which will best be done at acute rehab
Dtr likely plans to call to try to issue family appeal regarding denial as well
Discharge Disposition- [facility] pending appeal outcome vs SNF
--- NOTE | 2024-05-17 11:53 | W.PN.HOSP.TC ---
Today's Communication/Plan
-
dc
Assessment / Plan
Assessment / Plan
Physical Exam
-
General: No Apparent Distress
HEENT: Normocephalic and Atraumatic
Respiratory: Negative Wheezes
Cardiac: Regular Rhythm and S1/S2. + murmur
GI: Soft
Genito-urinary: No Costovertebral Tender
Neuro: AO x 3
Psych: Calm
Assessment:
Right heel ulcer, possible osteomyelitis
- MRI: Focal small soft tissue defect involving the superficial plantar soft tissues, inferior to the calcaneus. No evidence of collection to suggest abscess. No evidence for osteo myelitis. Intermediate T1-weighted signal within the subcutaneous
soft tissues off the plantar aspect of the posterior and inferior calcaneus, without significant enhancement postcontrast. This could represent soft tissue callus and/or relatively devascularize soft tissues. No evidence of collection. No evidence
for osteomyelitis of the calcaneus. Numerous prominent tortuous enhancing varicose veins within the medial soft tissues of the right lower leg and ankle.
- continue Vanco (requires intensive monitoring of levels) and Ertapenem per ID x 6 weeks. ESBL in culture. WBC stable
Per ID:
continue 6 week course of IV ertapenem and vancomycin 05/04-06/14
- PICC in place
- CBC, CMP, vancomycin trough at least weekly on Mondays moving forward
- s/p Right Distal Popliteal - Peroneal artery bypass (SVG) on 05/04. OP Vascular f/u
- s/p excisional bedside debridement 05/06 by Podiatry, OP f/u
- continue wound care per Podiatry/Vascular
- wound VAC being applied
# E coli/ UTI
No Dysuria.
Already receiving IV Abx. NO fever or dysuria.
# Heart murmur
d/w pt, he will f/w his PCP to do an echo. No chest pain, no sob, no signs of heart failure.
Hyponatremia, mild
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
- improved with slower infusion
LUE Vancomycin infiltrate
- on Hylenex protocol with VATS team
Nocturnal hypoxia
Resolved.
- desats nocturnally to 78%
- Patient is in need of oxygen at 2 liters/minute via nasal cannula continuously nocturnally due to pulse oximetry of 78% on room air at rest. Oxygen will help to improve hypoxemia. Patient is mobile within the home. DuoNeb therapy has been tried
and is ineffective in treating hypoxemia related symptoms. Oxygen is needed to improve symptoms.
- possibly has sleep apnea; sleep study outpatient recommended
Anemia due to acute blood loss from OR and hemodilution
- monitor. HGB stable at 10
History of osteomyelitis status post amputation of left third toe, right second/third toes
Peripheral vascular disease status post bypass of left lower extremity/stent of right lower extremity
Type 2 diabetes
- hypoglycemic from poor appetite post-op
- insulin sliding scale
- resume Lantus at 12 units
- HGB A1C 7.9
- resumed Metformin
- LUMPIA WRAPPER MAKER consulted
- Resume repaglinide, dapagliflozin
#Diabetic neuropathy
# Acute urinary retention
Voiding Trial
# Hyperkalemia, resolved
Hyperlipidemia
- continue statin
History of subdural hematoma
Essential hypertension
- continue lisinopril
DVT ppx: Heparin
Code: Full
Total time spent to see the patient, examine the patient on the floor, review data and lab results, discuss treatment plan with patient, nursing staff around 45 minutes.
Anticipated Discharge: Today
Subjective/Interval History
-
Date of Service: May 17, 2024
No complaints
Objective Data
-
Vital Signs:
Vital Signs
Temp Pulse Resp BP Pulse Ox
98.6 F 62 16 135/60 98
05/17/24 07:14 05/17/24 07:14 05/17/24 07:14 05/17/24 07:14 05/17/24 07:14
I&O
05/16/24 05/17/24 05/18/24
06:59 06:59 06:59
Intake Total 980 / 980 870 / 870 240 / 240
Output Total 850 / 1350 1875 / 1875 250 / 250
Balance 130 / -370 -1005 / -1005 -10 / -10
[2024-05-17 12:51] LABS: Glucose - Point of Care 150 mg/dl (70-99)
[2024-05-17] MEDS: INVANZ 60 MG IV (13:51)
[2024-05-17] MEDS: NOVOLOG FLEXPEN-LOW RESISTANCE 1 UNITS SC (13:52)
[2024-05-17 15:45] VITALS: BP 132/58
[2024-05-17 16:53] LABS: Glucose - Point of Care 137 mg/dl (70-99)
[2024-05-17] MEDS: CRESTOR 20 MG PO (17:06)
[2024-05-17] MEDS: COLACE 100 MG PO (20:24)
[2024-05-17] MEDS: DESENEX/MITRAZOL/ZEASORB 1 APPLIC TOPICAL (20:24)
[2024-05-17 22:09] LABS: Glucose - Point of Care 98 mg/dl (70-99)
[2024-05-17 23:15] VITALS: BP 133/59
[2024-05-18] MEDS: VANCOCIN 300 MG IV (06:12)
[2024-05-18] MEDS: VANCOCIN 300 ML IV (06:12)
[2024-05-18 07:05] VITALS: BP 129/65
[2024-05-18 07:07] LABS: Glucose - Point of Care 127 mg/dl (70-99)
[2024-05-18] MEDS: NOVOLOG FLEXPEN-LOW RESISTANCE SC ×2 (07:30→17:32)
--- NOTE | 2024-05-18 07:45 | W.PN.POD ---
Today's Communication
Today's Communication
Patient seen with his daughter, Jany rubi Jeannette, steam locomotive firer/fireman at bedside. Wound vac removed. We loose fibrofatty tissue was again sharply non excisionally debrided using sterile dissecting scissors and forceps through the epidermis, dermis
and into subcutaneous tissue, fascia. Scant bleeding encountered. Bleeding treated with pressure. The patient tolerated well with minimal to no discomfort.
Wound again irriagted with dakins solution, pat dry with sterile gauze and santyl ointment applied to wound bed and wound VAC dressing was reapplied with steam locomotive firer/fireman.
SNF placement is still pending as result of insurance and complexity of care. If patient remains here until Saturday, I will return, remove the wound VAC and re evaluate the wound. If he is DC to SNF, WOUND CARE to the right heel is same as above:
Cleanse with Dakins solution or Vashe, pat dry, apply nickel thick santyl ointment to wound bed and re apply wound vac (black foam dressing bridged to the distal leg 125mmHg, continuous, low settings) and I will follow as outpatient.
Assessment / Plan
-
1-DM2 with PAD- S/P successful Right lower extremity above-knee popliteal artery to peroneal artery
2-DM2 with DPN and LOPS
3-Stage 4/diabetic heel wound S/P full thickness debridement at bedside on 05/06 and again 05/14 and today 05/15 on wound vac therapy
Subjective
Chief Complaint
Chronic non healing wound right heel
Subjective
Feels ok, no new concerns
Objective
Temp Pulse Resp BP Pulse Ox
97.8 F 62 16 129/65 99
05/18/24 07:05 05/18/24 07:05 05/18/24 07:05 05/18/24 07:05 05/18/24 07:05
05/11/24 06:23
05/14/24 05:18
Vital Signs and Lab results were reviewed.
Inspection: Cellulitis (NONE) and Ulcer (Wound vac right heel)
Review of Systems
Review of Systems
Review of Systems: No Fever, No Chills, No Headache and No Nausea
Physical Exam
Physical Exam
General: No Apparent Distress, Comfortable and Conversant
Musculoskeletal: No Clubbing, No Cyanosis and Edema, Right Lower Extrem (minimal)
Skin: Warm, Dry and Other (VAC dressing removed: wound bed with slightly increased granulation to the periphery of the wound, otherwise fibrotic exposed fascia and >60%fibrofatty wound)
Neuro: AO x 3 and Protective Sensation Absent
Vascular: Capillary Refill Intact
Dorsalis Pedis: Intact
Posterior Tibialis: Diminished
--- NOTE | 2024-05-18 08:00 | WOUNDNOTE ---
[facility] RN note: Patient seen with Dr. Erickson who debrided R heel. Assisted with R heel vac dressing change. Small ss drainage. No surrounding erythema. Wound to yellow/meadows colored fascia. Protective foam maintained on L heel. Heel elevation
maintained. Next visit planned at [address] Erickson if patient still here.
--- NOTE | 2024-05-18 08:25 | WOUNDNOTE ---
R PLANTAR HEEL (after bedside debridement by Dr. Erickson)
[2024-05-18] MEDS: THERAGRAN 1 TABLET PO (08:44)
[2024-05-18] MEDS: VISBIOME 1 CAP PO (08:44)
[2024-05-18] MEDS: LOW STRENGTH ASPIRIN 81 MG PO (08:44)
[2024-05-18] MEDS: GLUCOPHAGE 1000 MG PO ×2 (08:45→18:04)
[2024-05-18] MEDS: PRANDIN 1 MG PO ×3 (08:45→18:04)
[2024-05-18] MEDS: FLOMAX 0.4 MG PO (08:45)
[2024-05-18] MEDS: XARELTO 2.5 MG PO ×2 (08:45→20:17)
[2024-05-18] MEDS: COLACE 100 MG PO ×2 (08:45→20:17)
[2024-05-18] MEDS: FARXIGA 5 MG PO ×2 (08:46→18:04)
[2024-05-18] MEDS: OCUVITE SOFTGEL 2 CAP PO (08:46)
[2024-05-18] MEDS: LANTUS 0.2 UNITS SC (08:47)
[2024-05-18] MEDS: DAKIN'S SOLUTION 0.125% 1/4 STRENGTH 1 ML TOPICAL (09:27)
[2024-05-18] MEDS: DESENEX/MITRAZOL/ZEASORB 1 APPLIC TOPICAL ×2 (09:28→20:17)
[2024-05-18] MEDS: SANTYL OINTMENT 1 APPLIC TOPICAL (09:31)
--- NOTE | 2024-05-18 09:35 | PN.DE.MGMTRT ---
Insulin Management
- -
05/18/2024: Diabetes Management F/U:
79 year old male admitted 04/28 with Right heel wound, possible osteomyelitis. PMH: PVD, CAD, HTN, HLD, PVD, prior amputation of R 2nd & 3rd toe and left 3rd toe, s/p bypass of LLE, prior stent to RLE, subdural hematoma, Diabetic Neuropathy and
T2DM.
Now POD #7 s/p RLE above-knee popliteal artery to peroneal artery using ipsilateral non-reversed great saphenous vein.
Diabetes management Consult requested on 05/10. Was taking Ozempic 1mg Q Mondays, Toujeo 20 units daily, Xigduo BID and Repaglinide 1mg TID. A1C 7.9%, Cr 0.6, eGFR >60.
Pt awake, A/O x3, sitting up in bed, offers no complaints, able to discuss diabetes mgt.
States he is frustrated with the process for rehab placement and that the CM is not communicating with him.
Glucose remains stable and in range, premeal 136 to 150, fasting 127 this AM.
Will cont current regimen: Lantus 20 units in AM, Prandin 1mg TID, Farxiga 5mg BID, Metformin 1000mg BID and low corrective with meals
Pt stable for discharge from Diabetes stand point when disposition has been coordinated.
Diabetes History
- -
Type of Diabetes: 2 requiring insulin
Pre-Admission Diabetes Regimen
Lab Results
Hemoglobin A1c 7.9 % (4.0-5.6) H 04/29/24 06:54
Insulin Pump Settings
IP Diabetes Regimen
05/17/24 05/17/24 05/17/24
12:51 16:52 22:08
POC Glucose 150 H 137 H 98
05/18/24
07:03
POC Glucose 127 H
Meal type: Dinner
Meal type: Lunch
Meal type: Breakfast
Amount consumed: 100%
Amount consumed: 100%
Amount consumed: 100%
Patient Education
--- NOTE | 2024-05-18 10:44 | PHA.VAN.FU ---
Vancomycin Assessment / Plan
- Assessment
Renal Function: No New Labs Today
In the past 24 hrs, patient has been: Afebrile
Concomitant Antimicrobials: ertapenem
- Dosing Plan
Continue: Vanc 1500mg Q24H
- Monitoring Plan
Trough Level: 05/19 05:30 - to be drawn before 5th dose of new regimen
Monitoring Comments: peak cancelled as not drawn in time
- Follow Up
Pharmacy will continue to follow.
Vancomycin Follow UP
- -
Patient Age: 79
Patient Sex: Male
Vancomycin Day #: 21
Indication: Bone And Joint
Requesting Provider: Dr. Stiles / Chitra
Pertinent Antimicrobial Allergies:
NKDA
Height / Weight:
Height 5 ft 11 in
Actual Weight 88.054 kg
IBW in k.3
Adjusted BW in k.5
Pertinent Past Medical History: DM 2, PVD
- Vital Signs / Lab Results
Temp Pulse Resp BP Pulse Ox
97.8 F 62 16 129/65 99
05/18/24 07:05 05/18/24 07:05 05/18/24 07:05 05/18/24 07:05 05/18/24 07:05
Therapeutic Drug Monitoring
Vancomycin Peak Cancelled 05/18/24 09:00
Vancomycin Trough 18.3 ug/ml (5-20) 05/14/24 05:18
--- NOTE | 2024-05-18 11:20 | W.PN.ID1 ---
Date of Service
Date of Service: May 18, 2024
Today's Communication
- continue 6 week course of IV ertapenem and vancomycin 05/04-06/14
- PICC in place
- cbc, cmp, vanc trough at least weekly moving forward - ordered cbc/cmp for tomorrow, outpatient they are ordered for mondays
Assessment / Plan
Diabetic Foot Infection
Suspected Osteomyelitis of the (R) heel
S/p Right lower extremity above-knee popliteal artery to peroneal artery 05/04
PAD- s/p RLE revascularization (05/04/24)
CAD
History of poor wound healing
- wound cultures - ESBL E. coli and Diphtheroid
- QTc 435
- wound vac in place
- continue 6 week course of IV ertapenem and vancomycin 05/04-06/14
- PICC in place
- cbc, cmp, vanc trough at least weekly moving forward - ordered cbc/cmp for tomorrow, outpatient they are ordered for mondays
- awaiting placement
Chief Complaint
-: Other (diabetic foot infection)
Subjective / Review of Systems
afebrile
Vital Signs / Physical Exam
Vital Signs
Vital Signs
Temp Pulse Resp BP Pulse Ox
97.8 F 62 16 129/65 99
05/18/24 07:05 05/18/24 07:05 05/18/24 07:05 05/18/24 07:05 05/18/24 07:05
Physical Exam
Constitutional: No Acute Distress
Cardiovascular: Regular Rate
Pulmonary: Symmetric
Gastrointestinal: Non Distended
Wound: Other (vascular surgical sites clean, no dehiscence or drainage)
Lines: PICC (no erythema, warmth or tendernss)
Objective Data
Lab Data
Lab Results
05/11/24 06:23
05/14/24 05:18
PT 16.2 Sec (11.4-14.6) H 05/05/24 04:26
INR 1.32 05/05/24 04:26
APTT 34.3 Sec (23.4-35.0) 05/05/24 04:26
Estimated Creat Clear 110 ml/min 05/14/24 05:18
Total Bilirubin 0.4 mg/dl (0.2-1.3) 04/29/24 06:54
AST 25 U/L (17-59) 04/29/24 06:54
ALT 27 U/L (0-50) 04/29/24 06:54
Alkaline Phosphatase 117 U/L (38-126) 04/29/24 06:54
Most recent labs reviewed.
Micro Results:
04/28/24 19:49 Wound Culture - Final
Heel - Right Escherichia coli - ESBL
Gram Stain - Final
04/28/24 22:49 MRSA Screen - Final
Nose No Methicillin Resistant Staphylococcus aureus isolated.
SPEC #: [id number] GLORY: 04/28/24
SOURCE: HEEL
SPDESC: Right
ORDERED: Wound/Other
Wound/abscess/other Cult Final
Many Escherichia coli - ESBL*
Few Diptheroids
Organism 1 Escherichia coli - ESBL
1. Escherichia coli - ESBL
M.I.C. RX
--------- ---
Amoxicillin/Potas. Clavulanate >16/8 R
Ampicillin >16 R
Ampicillin/Sulbactam <=8/4 S
Cefazolin >16 R
Cefepime <=2 S
Ceftazidime 8 I
Ceftriaxone >2 R
Ertapenem <=0.5 S
Ciprofloxacin <=0.25 S
Gentamicin <=4 S
Levofloxacin <=0.5 S
Meropenem <=1 S
Piperacillin/Tazobactam <=16 S
Tobramycin <=4 S
Trimethoprim/Sulfamethoxazole <=2/38 S
[2024-05-18 12:13] LABS: Glucose - Point of Care 237 mg/dl (70-99)
[2024-05-18] MEDS: NOVOLOG FLEXPEN-LOW RESISTANCE 2 UNITS SC (13:20)
[2024-05-18] MEDS: INVANZ 60 MG IV (13:21)
--- NOTE | 2024-05-18 13:42 | W.PN.HOSP.TC ---
Today's Communication/Plan
-
medically stable for DC pending member appeals process
Assessment / Plan
Assessment / Plan
Assessment:
Right heel ulcer, possible osteomyelitis
- MRI: Focal small soft tissue defect involving the superficial plantar soft tissues, inferior to the calcaneus. No evidence of collection to suggest abscess. No evidence for osteo myelitis. Intermediate T1-weighted signal within the subcutaneous
soft tissues off the plantar aspect of the posterior and inferior calcaneus, without significant enhancement postcontrast. This could represent soft tissue callus and/or relatively devascularize soft tissues. No evidence of collection. No evidence
for osteomyelitis of the calcaneus. Numerous prominent tortuous enhancing varicose veins within the medial soft tissues of the right lower leg and ankle.
- continue Vanco (requires intensive monitoring of levels) and Ertapenem per ID x 6 weeks through 06/14. ESBL in culture. WBC stable
- PICC in place
- CBC, CMP, vancomycin trough at least weekly on Mondays moving forward
- s/p Right Distal Popliteal - Peroneal artery bypass (SVG) on 05/04. OP Vascular f/u
- s/p excisional bedside debridement 05/06 by Podiatry, OP f/u
- continue wound care per Podiatry/Vascular
- wound VAC applied
E coli/UTI
- already on treatment IV abx
Heart murmur
- d/w pt, he will f/w his PCP to do an echo. No chest pain, no sob, no signs of heart failure.
Hyponatremia, mild
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
- improved with slower infusion
LUE Vancomycin infiltrate
- on Hylenex protocol with VATS team
Nocturnal hypoxia
Resolved.
- desats nocturnally to 78%
- Patient is in need of oxygen at 2 liters/minute via nasal cannula continuously nocturnally due to pulse oximetry of 78% on room air at rest. Oxygen will help to improve hypoxemia. Patient is mobile within the home. DuoNeb therapy has been tried
and is ineffective in treating hypoxemia related symptoms. Oxygen is needed to improve symptoms.
- possibly has sleep apnea; sleep study outpatient recommended
Anemia due to acute blood loss from OR and hemodilution
- monitor. HGB stable at 10
History of osteomyelitis status post amputation of left third toe, right second/third toes
Peripheral vascular disease status post bypass of left lower extremity/stent of right lower extremity
Type 2 diabetes
- hypoglycemic from poor appetite post-op
- insulin sliding scale
- HGB A1c 7.9%
- continue Lantus 20 units
- continue Metformin/Repaglinide/Dapagliflozin
- HEADWAITRESS consulting
Diabetic neuropathy
Acute urinary retention
- Voiding Trial
Hyperkalemia, resolved
Hyperlipidemia
- continue statin
History of subdural hematoma
Essential hypertension
- continue lisinopril
DVT ppx: Heparin
Code: Full
Dispo: peer to peer review denied 05/18. Family appealing through member option. Remains medically stable for discharge.
Anticipated Discharge: > 48 hours
Subjective/Interval History
-
Date of Service: May 18, 2024
denies any new complaints at present
Objective Data
-
Vital Signs:
Vital Signs
Temp Pulse Resp BP Pulse Ox
97.8 F 62 16 129/65 99
05/18/24 07:05 05/18/24 07:05 05/18/24 07:05 05/18/24 07:05 05/18/24 07:05
I&O
05/17/24 05/18/24 05/19/24
06:59 06:59 06:59
Intake Total 870 / 870 1620 / 1620
Output Total 1875 / 1875 1600 / 1600
Balance -1005 / -1005 20 / 20
Physical Exam
-
General: No Apparent Distress
HEENT: Normocephalic and Atraumatic
Respiratory: Negative Wheezes
Cardiac: Regular Rhythm and S1/S2
GI: Soft and Nontender
Genito-urinary: No Costovertebral Tender
Musculoskeletal: No Edema and Other (RLE wound vac)
Neuro: AO x 3
Hematologic / Lymphatic: No Lymphadenopathy
Psych: Calm
Data Reviewed
-
Total Time Spent with Patient (in minutes): 42
Labs: Labs Reviewed by me
--- NOTE | 2024-05-18 15:05 | CM ---
Physician Advisor completed the Peer to Peer this AM which was denied. Insurance MD said they will approve SNF for STR. Family has right to appeal denial to acute rehab. Spoke with daughter who is initiating appeal on behalf of patient. Daughter
requested Dr. Chambers Why call her. TT with request. Received call from Jim Ingram at [facility] requesting updated records. Records forwarded. Patient aware of above.
[2024-05-18 15:38] VITALS: BP 120/62
[2024-05-18 16:13] VITALS: BP 132/54; PULSE 66; O2SAT 98
[2024-05-18 17:32] LABS: Glucose - Point of Care 149 mg/dl (70-99)
[2024-05-18] MEDS: CRESTOR 20 MG PO (18:04)
[2024-05-18 21:52] LABS: Glucose - Point of Care 166 mg/dl (70-99)
[2024-05-18 23:06] VITALS: BP 123/64
[2024-05-19 05:55] LABS: Vancomycin Trough 12.5 ug/ml (5-20)
[2024-05-19] MEDS: VANCOCIN 300 ML IV (06:05)
[2024-05-19] MEDS: VANCOCIN 300 MG IV (06:05)
[2024-05-19 06:32] LABS: % Basophils 1.2 % (0-2); % Eosinophils 3.4 % (0-6); % Immature Granulocytes 0.5 % (0-0.5); % Lymphocytes 22.7 % (20.5-51.1); % Monocytes 10.8 % (1.7-9.3); % Neutrophils 61.4 % (42.2-75.2); Absolute Basophils 0.1 10^3/uL (0-0.2); Absolute Eosinophils 0.3 10^3/uL (0-0.7); Absolute Lymphocytes 1.7 10^3/uL (1.2-3.4); Absolute Monocytes 0.8 10^3/uL (0.1-0.6); Absolute Neutrophils 4.6 10^3/uL (1.4-6.5); Hematocrit 31.3 % (39.0-52.0); Hemoglobin 10.3 g/dL (13.0-18.0); Mean Corp Hgb Conc. 32.9 g/dL (33.0-37.0); Mean Corpuscular Hgb 28.5 pg (27.0-31.0); Mean Corpuscular Volume 86.7 fL (80.0-94.0); Mean Platelet Volume 9.6 fL (7.4-10.4); Nucleated Red Blood Cells % 0 % (-); Platelet Count 289 10^3/uL (130-400); Red Blood Cell Count 3.61 10^6/uL (4.70-6.10); Red Cell Dist. Width 13.4 % (11.5-14.5); White Blood Cell Count 7.4 10^3/uL (4.8-10.8)
[2024-05-19 06:58] LABS: ALT (SGPT) 35 U/L (0-50); AST (SGOT) 24 U/L (17-59); Albumin 2.8 g/dl (3.5-5.0); Alkaline Phosphatase 116 U/L (38-126); Blood Urea Nitrogen 22 mg/dl (9-20); Calcium 8.4 mg/dl (8.4-10.2); Carbon Dioxide 29 mmol/L (22-30); Chloride 104 mmol/L (98-107); Estimated Creatinine Clearance 110 ml/min; Glucose 121 mg/dl (70-99); Potassium 4.5 mmol/L (3.5-5.1); Sodium 136 mmol/L (135-145); Total Bilirubin 0.4 mg/dl (0.2-1.3); Total Protein 5.2 g/dl (6.3-8.2); eGFR > 60.00
[2024-05-19 07:05] VITALS: BP 136/60
[2024-05-19 07:20] LABS: Glucose - Point of Care 124 mg/dl (70-99)
--- NOTE | 2024-05-19 07:26 | PN.DE.MGMTRT ---
Insulin Management
- -
05/19/2024: Diabetes Management Follow up:
Patient admitted 04/28 with Right heel wound, possible osteomyelitis. PMH: PVD, CAD, HTN, HLD, prior amputation of R 2nd & 3rd toe and left 3rd toe, s/p bypass of LLE, prior stent to RLE, subdural hematoma, Diabetic Neuropathy and T2DM.
Now POD #8 s/p RLE above-knee popliteal artery to peroneal artery using ipsilateral non-reversed great saphenous vein.
Diabetes management Consult requested on 05/10. Was taking Ozempic 1mg Q Mondays, Toujeo 20 units daily, Xigduo BID and Repaglinide 1mg TID. A1C 7.9%, Cr 0.6, eGFR >60.
Pt awake, A/O x3, sitting up in bed, offers no complaints, able to discuss diabetes mgt.
Glucose remains stable and in range, premeal 127 to 166, with one elevation pre lunch 237; fasting 124 this AM.
Will cont current regimen: Lantus 20 units in AM, Prandin 1mg TID, Farxiga 5mg BID, Metformin 1000mg BID and low corrective with meals
Diabetes History
- -
Type of Diabetes: 2 requiring insulin
Pre-Admission Diabetes Regimen
05/19/24
05:19
Creatinine 0.6 L
Lab Results
Hemoglobin A1c 7.9 % (4.0-5.6) H 04/29/24 06:54
Insulin Pump Settings
IP Diabetes Regimen
05/18/24 05/18/24 05/18/24
12:11 17:29 21:51
Glucose
POC Glucose 237 H 149 H 166 H
05/19/24 05/19/24
05:19 07:16
Glucose 121 H
POC Glucose 124 H
Meal type: Lunch
Meal type: Breakfast
Amount consumed: 100%
Amount consumed: 100%
Patient Education
--- NOTE | 2024-05-19 08:10 | PHA.VAN.FU ---
Vancomycin Assessment / Plan
- Assessment
Renal Function: Stable
WBC's are: WNL
In the past 24 hrs, patient has been: Afebrile
Concomitant Antimicrobials: ertapenem
- Assessment - Trough Based Monitoring
Trough Value: 12.5
Level Today was: Appropriate
Level Comments: drawn ~23H after 4th dose of new regimen
- Dosing Plan
Continue: Vanc 1500mg Q24H infused over 2 hours
- Monitoring Plan
Level(s) appropriate: Recheck trough at minimum of weekly intervals, Repeat sooner for changes in renal function or clinical status
Next Level Due (Date): ~05/26
- Follow Up
Pharmacy will continue to follow.
Vancomycin Follow UP
- -
Patient Age: 79
Patient Sex: Male
Vancomycin Day #: 22
Indication: Bone And Joint
Requesting Provider: Dr. Stiles / Chitra
Pertinent Antimicrobial Allergies:
NKDA
Height / Weight:
Height 5 ft 11 in
Actual Weight 88.054 kg
IBW in k.3
Adjusted BW in k.5
Pertinent Past Medical History: DM 2, PVD
- Vital Signs / Lab Results
Temp Pulse Resp BP Pulse Ox
97.7 F 65 16 123/64 98
05/18/24 23:06 05/18/24 23:06 05/18/24 23:06 05/18/24 23:06 05/18/24 23:06
Lab Results - Hematology
05/19/24
05:19
WBC 7.4
Lab Results - Chemistry
05/19/24
05:19
BUN 22 H
Creatinine 0.6 L
Estimated Creat Clear 110
Albumin 2.8 L
Therapeutic Drug Monitoring
Vancomycin Peak Cancelled 05/18/24 09:00
Vancomycin Trough 12.5 ug/ml (5-20) 05/19/24 05:19
[2024-05-19] MEDS: NOVOLOG FLEXPEN-LOW RESISTANCE SC ×2 (09:26→17:51)
[2024-05-19] MEDS: FLOMAX 0.4 MG PO (09:26)
[2024-05-19] MEDS: PRANDIN 1 MG PO ×3 (09:26→18:10)
[2024-05-19] MEDS: OCUVITE SOFTGEL 2 CAP PO (09:27)
[2024-05-19] MEDS: FARXIGA 5 MG PO ×2 (09:27→18:10)
[2024-05-19] MEDS: XARELTO 2.5 MG PO ×2 (09:27→21:12)
[2024-05-19] MEDS: VISBIOME 1 CAP PO (09:27)
[2024-05-19] MEDS: GLUCOPHAGE 1000 MG PO ×2 (09:27→18:09)
[2024-05-19] MEDS: LOW STRENGTH ASPIRIN 81 MG PO (09:27)
[2024-05-19] MEDS: DESENEX/MITRAZOL/ZEASORB 1 APPLIC TOPICAL ×2 (09:28→21:12)
[2024-05-19] MEDS: COLACE 100 MG PO ×2 (09:28→21:12)
[2024-05-19] MEDS: LANTUS 0.2 UNITS SC (09:28)
[2024-05-19] MEDS: SANTYL OINTMENT TOPICAL (09:29)
[2024-05-19] MEDS: DAKIN'S SOLUTION 0.125% 1/4 STRENGTH TOPICAL (09:29)
[2024-05-19] MEDS: THERAGRAN 1 TABLET PO (09:29)
--- NOTE | 2024-05-19 09:55 | W.PN.ID1 ---
Date of Service
Date of Service: May 19, 2024
Today's Communication
- awaiting placement, will follow patient peripherally, if specific questions arise please call for reassessment
Assessment / Plan
Diabetic Foot Infection
Suspected Osteomyelitis of the (R) heel
S/p Right lower extremity above-knee popliteal artery to peroneal artery 05/04
PAD- s/p RLE revascularization (05/04/24)
CAD
History of poor wound healing
- wound cultures - ESBL E. coli and Diphtheroid
- QTc 435
- wound vac in place
- continue 6 week course of IV ertapenem and vancomycin 05/04-06/14
- PICC in place
- cbc, cmp, vanc trough at least weekly moving forward
- awaiting placement, will follow patient peripherally, if specific questions arise please call for reassessment
Chief Complaint
-: Other (diabetic foot infection)
Subjective / Review of Systems
had nonviable tissue debrided at the bedside yesterday, scant bleeding seen, wound vac replaced, next
Vital Signs / Physical Exam
Vital Signs
Vital Signs
Temp Pulse Resp BP Pulse Ox
98.0 F 64 16 136/60 99
05/19/24 07:05 05/19/24 07:05 05/19/24 07:05 05/19/24 07:05 05/19/24 07:05
Physical Exam
Constitutional: No Acute Distress
Cardiovascular: Regular Rate
Pulmonary: Symmetric
Gastrointestinal: Non Distended
Neurological: Awake
Objective Data
Lab Data
Lab Results
05/19/24 05:19
05/19/24 05:19
PT 16.2 Sec (11.4-14.6) H 05/05/24 04:26
INR 1.32 05/05/24 04:26
APTT 34.3 Sec (23.4-35.0) 05/05/24 04:26
Estimated Creat Clear 110 ml/min 05/19/24 05:19
Total Bilirubin 0.4 mg/dl (0.2-1.3) 05/19/24 05:19
AST 24 U/L (17-59) 05/19/24 05:19
ALT 35 U/L (0-50) 05/19/24 05:19
Alkaline Phosphatase 116 U/L (38-126) 05/19/24 05:19
vanc trough at goal
Most recent labs reviewed.
Micro Results:
04/28/24 19:49 Wound Culture - Final
Heel - Right Escherichia coli - ESBL
Gram Stain - Final
04/28/24 22:49 MRSA Screen - Final
Nose No Methicillin Resistant Staphylococcus aureus isolated.
SPEC #: [id number] GLORY: 04/28/24
SOURCE: HEEL
SPDESC: Right
ORDERED: Wound/Other
Wound/abscess/other Cult Final
Many Escherichia coli - ESBL*
Few Diptheroids
Organism 1 Escherichia coli - ESBL
1. Escherichia coli - ESBL
M.I.C. RX
--------- ---
Amoxicillin/Potas. Clavulanate >16/8 R
Ampicillin >16 R
Ampicillin/Sulbactam <=8/4 S
Cefazolin >16 R
Cefepime <=2 S
Ceftazidime 8 I
Ceftriaxone >2 R
Ertapenem <=0.5 S
Ciprofloxacin <=0.25 S
Gentamicin <=4 S
Levofloxacin <=0.5 S
Meropenem <=1 S
Piperacillin/Tazobactam <=16 S
Tobramycin <=4 S
Trimethoprim/Sulfamethoxazole <=2/38 S
--- NOTE | 2024-05-19 12:04 | W.PN.HOSP.TC ---
Today's Communication/Plan
-
awaiting appeals process
Assessment / Plan
Assessment / Plan
Assessment:
Right heel ulcer, possible osteomyelitis
- MRI: Focal small soft tissue defect involving the superficial plantar soft tissues, inferior to the calcaneus. No evidence of collection to suggest abscess. No evidence for osteo myelitis. Intermediate T1-weighted signal within the subcutaneous
soft tissues off the plantar aspect of the posterior and inferior calcaneus, without significant enhancement postcontrast. This could represent soft tissue callus and/or relatively devascularize soft tissues. No evidence of collection. No evidence
for osteomyelitis of the calcaneus. Numerous prominent tortuous enhancing varicose veins within the medial soft tissues of the right lower leg and ankle.
- continue Vanco (requires intensive monitoring of levels) and Ertapenem per ID x 6 weeks through 06/14. ESBL in culture. WBC stable
- PICC in place
- CBC, CMP, vancomycin trough at least weekly on Mondays moving forward
- s/p Right Distal Popliteal - Peroneal artery bypass (SVG) on 05/04. OP Vascular f/u
- s/p excisional bedside debridement 05/06 by Podiatry, OP f/u
- continue wound care per Podiatry/Vascular
- wound VAC applied
E coli/UTI
- already on treatment IV abx
Heart murmur
- d/w pt, he will f/w his PCP to do an echo. No chest pain, no sob, no signs of heart failure.
Hyponatremia, mild
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
- improved with slower infusion
LUE Vancomycin infiltrate
- on Hylenex protocol with VATS team
Nocturnal hypoxia
Resolved.
- desats nocturnally to 78%
- Patient is in need of oxygen at 2 liters/minute via nasal cannula continuously nocturnally due to pulse oximetry of 78% on room air at rest. Oxygen will help to improve hypoxemia. Patient is mobile within the home. DuoNeb therapy has been tried
and is ineffective in treating hypoxemia related symptoms. Oxygen is needed to improve symptoms.
- possibly has sleep apnea; sleep study outpatient recommended
Anemia due to acute blood loss from OR and hemodilution
- monitor. HGB stable at 10
History of osteomyelitis status post amputation of left third toe, right second/third toes
Peripheral vascular disease status post bypass of left lower extremity/stent of right lower extremity
Type 2 diabetes
- hypoglycemic from poor appetite post-op
- insulin sliding scale
- HGB A1c 7.9%
- continue Lantus 20 units
- continue Metformin/Repaglinide/Dapagliflozin
- AUTO TRANSMISSION MECHANIC consulting
Diabetic neuropathy
Acute urinary retention
- Voiding Trial
Hyperkalemia, resolved
Hyperlipidemia
- continue statin
History of subdural hematoma
Essential hypertension
- continue lisinopril
DVT ppx: Heparin
Code: Full
Dispo: peer to peer review denied 05/18. Family appealing through member option. Remains medically stable for discharge.
Anticipated Discharge: 24 - 48 hours
Subjective/Interval History
-
Date of Service: May 19, 2024
sugars decently controlled
no new complaints
Objective Data
-
Labs:
Laboratory Results
05/19/24
05:19
WBC 7.4
Hgb 10.3 L
Hct 31.3 L
Plt Count 289
Sodium 136
Potassium 4.5
Chloride 104
Carbon Dioxide 29
BUN 22 H
Creatinine 0.6 L
Glucose 121 H
Calcium 8.4
Total Bilirubin 0.4
AST 24
ALT 35
Alkaline Phosphatase 116
Vital Signs:
Vital Signs
Temp Pulse Resp BP Pulse Ox
98.0 F 64 16 136/60 99
05/19/24 07:05 05/19/24 07:05 05/19/24 07:05 05/19/24 07:05 05/19/24 07:05
I&O
05/18/24 05/19/24 05/20/24
06:59 06:59 06:59
Intake Total 1620 / 1620 1320 / 1320
Output Total 1600 / 1600 600 / 600
Balance 20 20 720 / 720
Physical Exam
-
General: No Apparent Distress
HEENT: Normocephalic and Atraumatic
Respiratory: Negative Wheezes
Cardiac: Regular Rhythm and S1/S2
GI: Soft
Genito-urinary: No Costovertebral Tender
Neuro: AO x 3
Psych: Calm
Data Reviewed
-
Total Time Spent with Patient (in minutes): 42
Labs: Labs Reviewed by me
[2024-05-19 12:52] LABS: Glucose - Point of Care 197 mg/dl (70-99)
[2024-05-19] MEDS: INVANZ 60 MG IV (13:07)
[2024-05-19] MEDS: NOVOLOG FLEXPEN-LOW RESISTANCE 1 UNITS SC (13:08)
--- NOTE | 2024-05-19 13:33 | CM ---
Addendum entered by Jim Chand 05/19/24 15:18:
MICHELLE-DAUGHTER CELL #: [phone].
Addendum entered by Jim Chand 05/19/24 15:11:
Received call from Fidelina at [facility] requesting records on patient for the patient appeal. Daughter's cell # provided. [facility] already has patient's cell #. Fidelina's phone # is [phone] and . Fidelina anticipates a determination
will be made by 05/20/24 or 05/21/24. Pertinent medical records forwarded. Patient and daughter aware.
Addendum entered by Jim Chand 05/19/24 13:40:
Barrier to SNF acceptance to some facilities was the cost of medications. has a 'carve out' clause for medications in patient's policy which will reduce the cost. Also, patient is now on Vancocin once daily instead of BID and Ertapenem evidently
now has a generic. When accepted to a facility CM will need to get the cost of meds from accepting facility and when getting the insurance auth inquire about the carve out clause.
Original Note:
Spoke with daughterMichelle this am. She did initiate the patient appeal on behalf of patient on 05/18/24. She spoke with Jamie at .
Ticket # [id number], Reference #[id number]. Awaiting patient appeal determination.
[2024-05-19 15:05] VITALS: BP 139/56
[2024-05-19 16:48] LABS: Glucose - Point of Care 137 mg/dl (70-99)
--- NOTE | 2024-05-19 17:47 | W.PN.UPDATE ---
Update Note
Progress Note Update
Removed postop surgical derik, evidence of nonhealing skin edges toward groin crease, approximately 10 derik remain in groin crease to decrease dehiscence and additional Steri-Strips placed for support. Remaining areas of staple removal CDI
with well-approximated skin edges, patient tolerated removal well.
[2024-05-19] MEDS: CRESTOR 20 MG PO (18:09)
[2024-05-19 21:04] LABS: Glucose - Point of Care 168 mg/dl (70-99)
[2024-05-19 22:59] VITALS: BP 135/62
[2024-05-20] MEDS: VANCOCIN 300 ML IV (06:11)
[2024-05-20] MEDS: VANCOCIN 300 MG IV (06:11)
[2024-05-20 07:00] VITALS: BP 117/61
[2024-05-20 07:00] LABS: Glucose - Point of Care 151 mg/dl (70-99)
--- NOTE | 2024-05-20 07:15 | PN.DE.MGMTRT ---
Insulin Management
- -
05/20/2024: Diabetes Management Follow up:
Patient admitted 04/28 with Right heel wound, possible osteomyelitis. PMH: PVD, CAD, HTN, HLD, prior amputation of R 2nd & 3rd toe and left 3rd toe, s/p bypass of LLE, prior stent to RLE, subdural hematoma, Diabetic Neuropathy and T2DM.
Now POD #9 s/p RLE above-knee popliteal artery to peroneal artery using ipsilateral non-reversed great saphenous vein.
Diabetes management Consult requested on 05/10. Was taking Ozempic 1mg Q Mondays, Toujeo 20 units daily, Xigduo BID and Repaglinide 1mg TID. A1C 7.9%, Cr 0.6, eGFR >60.
Pt awake, A/O x3, sitting up in bed, offers no complaints, able to discuss diabetes mgt.
Glucose remains stable and in range, premeal 124 to 197, fasting 151 this AM.
Will cont current regimen: Lantus 20 units in AM, Prandin 1mg TID, Farxiga 5mg BID, Metformin 1000mg BID and low corrective with meals
Diabetes History
- -
Type of Diabetes: 2
Pre-Admission Diabetes Regimen
Lab Results
Hemoglobin A1c 7.9 % (4.0-5.6) H 04/29/24 06:54
Insulin Pump Settings
IP Diabetes Regimen
05/19/24 05/19/24 05/19/24
07:16 12:50 16:46
POC Glucose 124 H 197 H 137 H
05/19/24 05/20/24
21:02 06:59
POC Glucose 168 H 151 H
Meal type: Lunch
Meal type: Breakfast
Amount consumed: 100%
Amount consumed: 100%
Patient Education
[2024-05-20] MEDS: NOVOLOG FLEXPEN-LOW RESISTANCE SC ×2 (07:18→12:08)
--- NOTE | 2024-05-20 08:05 | PHA.VAN.FU ---
Vancomycin Assessment / Plan
- Assessment
Renal Function: No New Labs Today
WBC's are: WNL
In the past 24 hrs, patient has been: Afebrile
Concomitant Antimicrobials: ertapenem
- Dosing Plan
Continue: Vanc 1500mg Q24H infused over 2 hours
- Monitoring Plan
Level(s) appropriate: Recheck trough at minimum of weekly intervals, Repeat sooner for changes in renal function or clinical status
Next Level Due (Date): ~05/26
- Follow Up
Pharmacy will continue to follow.
Vancomycin Follow UP
- -
Patient Age: 79
Patient Sex: Male
Vancomycin Day #: 23
Indication: Bone And Joint
Requesting Provider: Dr. Stiles / Chitra
Pertinent Antimicrobial Allergies:
NKDA
Height / Weight:
Height 5 ft 11 in
Actual Weight 88.054 kg
IBW in k.3
Adjusted BW in k.5
Pertinent Past Medical History: DM 2, PVD
- Vital Signs / Lab Results
Temp Pulse Resp BP Pulse Ox
97.7 F 65 16 117/61 97
05/20/24 07:00 05/20/24 07:00 05/20/24 07:00 05/20/24 07:00 05/20/24 07:00
Lab Results - Hematology
05/19/24
05:19
WBC 7.4
Lab Results - Chemistry
05/19/24
05:19
BUN 22 H
Creatinine 0.6 L
Estimated Creat Clear 110
Albumin 2.8 L
Therapeutic Drug Monitoring
Vancomycin Peak Cancelled 05/18/24 09:00
Vancomycin Trough 12.5 ug/ml (5-20) 05/19/24 05:19
[2024-05-20] MEDS: LANTUS 0.2 UNITS SC (08:17)
[2024-05-20] MEDS: GLUCOPHAGE 1000 MG PO ×2 (08:17→17:07)
[2024-05-20] MEDS: FARXIGA 5 MG PO ×2 (08:17→17:07)
[2024-05-20] MEDS: PRANDIN 1 MG PO ×3 (08:17→17:07)
[2024-05-20] MEDS: COLACE 100 MG PO ×2 (08:18→19:34)
[2024-05-20] MEDS: FLOMAX 0.4 MG PO (08:18)
[2024-05-20] MEDS: VISBIOME 1 CAP PO (08:18)
[2024-05-20] MEDS: OCUVITE SOFTGEL 2 CAP PO (08:18)
[2024-05-20] MEDS: THERAGRAN 1 TABLET PO (08:19)
[2024-05-20] MEDS: LOW STRENGTH ASPIRIN 81 MG PO (08:19)
[2024-05-20] MEDS: XARELTO 2.5 MG PO ×2 (08:19→19:34)
[2024-05-20] MEDS: DAKIN'S SOLUTION 0.125% 1/4 STRENGTH 473 ML TOPICAL (08:22)
[2024-05-20] MEDS: SANTYL OINTMENT 1 APPLIC TOPICAL (08:22)
[2024-05-20] MEDS: DESENEX/MITRAZOL/ZEASORB TOPICAL (08:24)
--- NOTE | 2024-05-20 08:55 | W.PN.POD ---
Today's Communication
Today's Communication
Patient again seen today with his daughter, Jany rubi Jeannette, grocery department manager at bedside. Wound vac removed.
Stringy fibrofatty tissue was again sharply, non excisionally debrided using sterile dissecting scissors and forceps through the epidermis, dermis and into subcutaneous tissue, fascia.Minimal to moderate bleeding encountered. Bleeding treated with
pressure. The patient tolerated well with no discomfort.
Wound again irriagted with dakins solution, pat dry with sterile gauze and santyl ointment applied to wound bed and wound VAC dressing was reapplied
SNF placement is still pending as result of insurance and complexity of care.
If patient is here Saturday, I will return, remove the wound VAC with grocery department manager and re evaluate the wound.
If he is DC to SNF, WOUND CARE to the right heel is same as above: Cleanse with Dakins solution or Vashe, pat dry, apply nickel thick santyl ointment to wound bed and re apply wound vac (black foam dressing bridged to the distal leg 125mmHg,
continuous, low settings) and I will follow as outpatient.
NWB status RLE
Assessment / Plan
-
1-DM2 with PAD- S/P successful Right lower extremity above-knee popliteal artery to peroneal artery
2-DM2 with DPN and LOPS
3-Stage 4/diabetic heel wound S/P full thickness repeated bedside debridements on wound vac therapy
Subjective
Chief Complaint
right foot infection/PAD
Subjective
No new concerns
Objective
Temp Pulse Resp BP Pulse Ox
97.7 F 65 16 117/61 97
05/20/24 07:00 05/20/24 07:00 05/20/24 07:00 05/20/24 07:00 05/20/24 07:00
05/19/24 05:19
05/19/24 05:19
Vital Signs and Lab results were reviewed.
Inspection: Cellulitis (none) and Ulcer (wound vac in place right heel)
Review of Systems
Review of Systems
Review of Systems: No Fever, No Chills, No Headache, No Nausea, No Diarrhea and No Joint Pain
Physical Exam
Physical Exam
General: No Apparent Distress, Comfortable and Conversant
Musculoskeletal: No Clubbing
Skin: Warm, Dry and Neurotrophic Ulcer (diabetic right heel ulcer- full thickness to fascia over bone, VAC removed and ulcer re-assessed. There is no odor or purulence, wound still quite fibrotic, however there is increased appearance of viability
to the wound. )
Neuro: AO x 3 and Protective Sensation Absent
Vascular: Capillary Refill Intact and Skin Temperature Warm to Cool
Dorsalis Pedis: Diminished
Posterior Tibialis: Diminished
--- NOTE | 2024-05-20 09:00 | WOUNDNOTE ---
R HEEL (LATERAL)(after bedside debridement by electric tape slitter)
--- NOTE | 2024-05-20 09:00 | WOUNDNOTE ---
R PLANTAR HEEL (after bedside debridement by business information consultant)
--- NOTE | 2024-05-20 09:37 | WOUNDNOTE ---
WOC RN note: Assisted Dr. Erickson with vac dressing change. Dr. Erickson debrided patient's R heel, wound with small granulation along distal edge, meadows colored fascia covering heel bone. Small ss drainage. Patient tolerated wound care well. Heels off
bed with pillow. Sacral crease with linear red area d/t moisture, Desenex powder applied. Next vac change due Saturday. Nursing to remove vac and apply saline gauze dressing if/when transferred to rehab and rehab would place their own vac equipment.
[2024-05-20 12:03] LABS: Glucose - Point of Care 121 mg/dl (70-99)
--- NOTE | 2024-05-20 13:20 | W.PN.HOSP.TC ---
Today's Communication/Plan
-
awaiting appeals process
Assessment / Plan
Assessment / Plan
Assessment:
Right heel ulcer, possible osteomyelitis
- MRI: Focal small soft tissue defect involving the superficial plantar soft tissues, inferior to the calcaneus. No evidence of collection to suggest abscess. No evidence for osteo myelitis. Intermediate T1-weighted signal within the subcutaneous
soft tissues off the plantar aspect of the posterior and inferior calcaneus, without significant enhancement postcontrast. This could represent soft tissue callus and/or relatively devascularize soft tissues. No evidence of collection. No evidence
for osteomyelitis of the calcaneus. Numerous prominent tortuous enhancing varicose veins within the medial soft tissues of the right lower leg and ankle.
- continue Vanco (requires intensive monitoring of levels) and Ertapenem per ID x 6 weeks through 06/14. ESBL in culture. WBC stable
- PICC in place
- CBC, CMP, vancomycin trough at least weekly on Mondays moving forward
- s/p Right Distal Popliteal - Peroneal artery bypass (SVG) on 05/04. OP Vascular f/u
- s/p excisional bedside debridement 05/06 by Podiatry, OP f/u
- continue wound care per Podiatry/Vascular
- wound VAC applied
E coli/UTI
- already on treatment IV abx
Heart murmur
- d/w pt, he will f/w his PCP to do an echo. No chest pain, no sob, no signs of heart failure.
Hyponatremia, mild
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
- improved with slower infusion
LUE Vancomycin infiltrate
- on Hylenex protocol with VATS team
Nocturnal hypoxia
Resolved.
- desats nocturnally to 78%
- Patient is in need of oxygen at 2 liters/minute via nasal cannula continuously nocturnally due to pulse oximetry of 78% on room air at rest. Oxygen will help to improve hypoxemia. Patient is mobile within the home. DuoNeb therapy has been tried
and is ineffective in treating hypoxemia related symptoms. Oxygen is needed to improve symptoms.
- possibly has sleep apnea; sleep study outpatient recommended
Anemia due to acute blood loss from OR and hemodilution
- monitor. HGB stable at 10
History of osteomyelitis status post amputation of left third toe, right second/third toes
Peripheral vascular disease status post bypass of left lower extremity/stent of right lower extremity
Type 2 diabetes
- hypoglycemic from poor appetite post-op
- insulin sliding scale
- HGB A1c 7.9%
- continue Lantus 20 units
- continue Metformin/Repaglinide/Dapagliflozin
- SAND OPERATOR consulting
Diabetic neuropathy
Acute urinary retention
- Voiding Trial
Hyperkalemia, resolved
Hyperlipidemia
- continue statin
History of subdural hematoma
Essential hypertension
- continue lisinopril
DVT ppx: Heparin
Code: Full
Dispo: peer to peer review denied 05/18. Family appealing through member option. Remains medically stable for discharge.
Anticipated Discharge: 24 - 48 hours
Subjective/Interval History
-
Date of Service: May 20, 2024
no new complaints
VAC changed today
Objective Data
-
Vital Signs:
Vital Signs
Temp Pulse Resp BP Pulse Ox
97.7 F 65 16 117/61 97
05/20/24 07:00 05/20/24 07:00 05/20/24 07:00 05/20/24 07:00 05/20/24 07:00
I&O
05/19/24 05/20/24 05/21/24
06:59 06:59 06:59
Intake Total 1320 / 1320 900 / 900
Output Total 600 / 600 1925 / 1925 600 / 600
Balance 720 / 720 -1025 / -1025 -600 / -600
Physical Exam
-
General: No Apparent Distress
HEENT: Normocephalic and Atraumatic
Respiratory: Negative Wheezes
Cardiac: Regular Rhythm and S1/S2
GI: Soft and Nontender
Genito-urinary: No Costovertebral Tender
Neuro: AO x 3
Psych: Calm
Data Reviewed
-
Total Time Spent with Patient (in minutes): 41
Labs: Labs Reviewed by me
--- NOTE | 2024-05-20 14:54 | CM ---
CM following re: discharge planning.
Reviewed pt's chart, met with pt.
CM has a long conversation/discussion with pt's daughter regarding challenges in navigating a next level of care. Pt's daughter stated she is awaiting for final appeal decision and per daughter that decision might be today or tomorrow. Pt's daughter
expressed to me her strong desire to get her father only to [facility]. CM explained criteria for an acute level of care and pt's daughter stated she is putting all her efforts to get her father to [facility]
rehab.
CM went through challenging process to re-focus pt's daughter effort and to start working on a back up plan - SNF. Pt's daughter went back and fourth avoiding discussion of a SNF and at the end of conversation she reluctantly agrees to work with
[facility] as a back up plan in case acute rehab level of care will be denied.
CM spoke to [facility] on site coordinator Jim, she confirmed that [facility] is looking for to accept the pt and updated pt's clinical requested. Updated pt's clinical faxed to [facility] for a review. Awaiting for
determination.
D/C plan: Plan A: [place] acute rehab. Awaiting for appeal decision.
Plan B/back up plan: [facility]. Awaiting for determination.
CM will follow with discharge plan updates as hospitalization progresses.
[2024-05-20] MEDS: INVANZ 60 MG IV (14:58)
[2024-05-20 15:00] VITALS: BP 130/60
[2024-05-20 16:48] LABS: Glucose - Point of Care 178 mg/dl (70-99)
[2024-05-20] MEDS: CRESTOR 20 MG PO (17:07)
[2024-05-20] MEDS: NOVOLOG FLEXPEN-LOW RESISTANCE 1 UNITS SC (17:08)
[2024-05-20] MEDS: DESENEX/MITRAZOL/ZEASORB 1 APPLIC TOPICAL (19:34)
[2024-05-20 21:30] LABS: Glucose - Point of Care 116 mg/dl (70-99)
[2024-05-20 23:05] VITALS: BP 154/67
[2024-05-21] MEDS: VANCOCIN 300 MG IV (05:53)
[2024-05-21] MEDS: VANCOCIN 300 ML IV (05:53)
[2024-05-21 07:05] VITALS: BP 122/46
--- NOTE | 2024-05-21 07:07 | PN.DE.MGMTRT ---
Insulin Management
- -
05/21/2024: Diabetes Management Follow up:
Patient admitted 04/28 with Right heel wound, possible osteomyelitis. PMH: PVD, CAD, HTN, HLD, prior amputation of R 2nd & 3rd toe and left 3rd toe, s/p bypass of LLE, prior stent to RLE, subdural hematoma, Diabetic Neuropathy and T2DM.
Now POD #10 s/p RLE above-knee popliteal artery to peroneal artery using ipsilateral non-reversed great saphenous vein.
Diabetes management Consult requested on 05/10. Was taking Ozempic 1mg Q Mondays, Toujeo 20 units daily, Xigduo BID and Repaglinide 1mg TID. A1C 7.9%, Cr 0.6, eGFR >60.
Pt awake, A/O x3, sitting up in bed, offers no complaints, able to discuss diabetes mgt.
Glucose remains stable and in range, premeal 116 to 178, fasting 153 this AM.
Will cont current regimen: Lantus 20 units in AM, Prandin 1mg TID, Farxiga 5mg BID, Metformin 1000mg BID and low corrective with meals
Diabetes History
- -
Type of Diabetes: 2
Pre-Admission Diabetes Regimen
Lab Results
Hemoglobin A1c 7.9 % (4.0-5.6) H 04/29/24 06:54
Insulin Pump Settings
IP Diabetes Regimen
05/20/24 05/20/24 05/20/24
12:01 16:47 21:29
POC Glucose 121 H 178 H 116 H
Meal type: Breakfast
Amount consumed: 90%
Patient Education
[2024-05-21 07:12] LABS: Glucose - Point of Care 153 mg/dl (70-99)
--- NOTE | 2024-05-21 07:48 | PHA.VAN.FU ---
Vancomycin Assessment / Plan
- Assessment
Renal Function: No New Labs Today
In the past 24 hrs, patient has been: Afebrile
Concomitant Antimicrobials: ertapenem
- Dosing Plan
Continue: Vanc 1500mg Q24H infused over 2 hours
- Monitoring Plan
Level(s) appropriate: Recheck trough at minimum of weekly intervals, Repeat sooner for changes in renal function or clinical status
Next Level Due (Date): ~05/26
- Follow Up
Pharmacy will continue to follow.
Vancomycin Follow UP
- -
Patient Age: 79
Patient Sex: Male
Vancomycin Day #: 24
Indication: Bone And Joint
Requesting Provider: Dr. Stiles / Chitra
Pertinent Antimicrobial Allergies:
NKDA
Height / Weight:
Height 5 ft 11 in
Actual Weight 88.054 kg
IBW in k.3
Adjusted BW in k.5
Pertinent Past Medical History: DM 2, PVD
- Vital Signs / Lab Results
Temp Pulse Resp BP Pulse Ox
97.8 F 60 16 154/67 97
05/20/24 23:05 05/20/24 23:05 05/20/24 23:05 05/20/24 23:05 05/20/24 23:05
Lab Results - Hematology
05/19/24
05:19
WBC 7.4
Lab Results - Chemistry
05/19/24
05:19
BUN 22 H
Creatinine 0.6 L
Estimated Creat Clear 110
Albumin 2.8 L
Therapeutic Drug Monitoring
Vancomycin Peak Cancelled 05/18/24 09:00
Vancomycin Trough 12.5 ug/ml (5-20) 05/19/24 05:19
[2024-05-21] MEDS: NOVOLOG FLEXPEN-LOW RESISTANCE 1 UNITS SC ×2 (08:22→16:55)
[2024-05-21] MEDS: LANTUS 0.2 UNITS SC (08:23)
[2024-05-21] MEDS: FARXIGA 5 MG PO ×2 (08:24→16:56)
[2024-05-21] MEDS: LOW STRENGTH ASPIRIN 81 MG PO (08:24)
[2024-05-21] MEDS: COLACE 100 MG PO ×2 (08:24→21:17)
[2024-05-21] MEDS: FLOMAX 0.4 MG PO (08:24)
[2024-05-21] MEDS: PRANDIN 1 MG PO ×3 (08:24→16:47)
[2024-05-21] MEDS: OCUVITE SOFTGEL 2 CAP PO (08:24)
[2024-05-21] MEDS: GLUCOPHAGE 1000 MG PO ×2 (08:24→16:56)
[2024-05-21] MEDS: VISBIOME 1 CAP PO (08:24)
[2024-05-21] MEDS: THERAGRAN 1 TABLET PO (08:24)
[2024-05-21] MEDS: XARELTO 2.5 MG PO ×2 (08:24→21:17)
[2024-05-21] MEDS: DAKIN'S SOLUTION 0.125% 1/4 STRENGTH 473 ML TOPICAL (08:28)
[2024-05-21] MEDS: SANTYL OINTMENT 1 APPLIC TOPICAL (08:29)
[2024-05-21] MEDS: DESENEX/MITRAZOL/ZEASORB 1 APPLIC TOPICAL ×2 (08:31→21:17)
--- NOTE | 2024-05-21 11:32 | W.PN.HOSP.TC ---
Today's Communication/Plan
-
awaiting appeals process
Assessment / Plan
Assessment / Plan
Assessment:
Right heel ulcer, possible osteomyelitis
- MRI: Focal small soft tissue defect involving the superficial plantar soft tissues, inferior to the calcaneus. No evidence of collection to suggest abscess. No evidence for osteo myelitis. Intermediate T1-weighted signal within the subcutaneous
soft tissues off the plantar aspect of the posterior and inferior calcaneus, without significant enhancement postcontrast. This could represent soft tissue callus and/or relatively devascularize soft tissues. No evidence of collection. No evidence
for osteomyelitis of the calcaneus. Numerous prominent tortuous enhancing varicose veins within the medial soft tissues of the right lower leg and ankle.
- continue Vanco (requires intensive monitoring of levels) and Ertapenem per ID x 6 weeks through 06/14. ESBL in culture. WBC stable
- PICC in place
- CBC, CMP, vancomycin trough at least weekly on Mondays moving forward
- s/p Right Distal Popliteal - Peroneal artery bypass (SVG) on 05/04. OP Vascular f/u
- s/p excisional bedside debridement 05/06 by Podiatry, OP f/u
- continue wound care per Podiatry/Vascular
- wound VAC applied
E coli/UTI
- already on treatment IV abx
Heart murmur
- d/w pt, he will f/w his PCP to do an echo. No chest pain, no sob, no signs of heart failure.
Hyponatremia, mild
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
- improved with slower infusion
LUE Vancomycin infiltrate
- on Hylenex protocol with VATS team
Nocturnal hypoxia
Resolved.
- desats nocturnally to 78%
- Patient is in need of oxygen at 2 liters/minute via nasal cannula continuously nocturnally due to pulse oximetry of 78% on room air at rest. Oxygen will help to improve hypoxemia. Patient is mobile within the home. DuoNeb therapy has been tried
and is ineffective in treating hypoxemia related symptoms. Oxygen is needed to improve symptoms.
- possibly has sleep apnea; sleep study outpatient recommended
Anemia due to acute blood loss from OR and hemodilution
- monitor. HGB stable at 10
History of osteomyelitis status post amputation of left third toe, right second/third toes
Peripheral vascular disease status post bypass of left lower extremity/stent of right lower extremity
Type 2 diabetes
- hypoglycemic from poor appetite post-op
- insulin sliding scale
- HGB A1c 7.9%
- continue Lantus 20 units
- continue Metformin/Repaglinide/Dapagliflozin
- SHOT PEEN OPERATOR consulting
Diabetic neuropathy
Acute urinary retention
- Voiding Trial
Hyperkalemia, resolved
Hyperlipidemia
- continue statin
History of subdural hematoma
Essential hypertension
- continue lisinopril
DVT ppx: Heparin
Code: Full
Dispo: peer to peer review denied 05/18. Family appealing through member option and decision is pending. Remains medically stable for discharge.
Anticipated Discharge: 24 - 48 hours
Subjective/Interval History
-
Date of Service: May 21, 2024
no overnight events
appeals process remains pending
Objective Data
-
Vital Signs:
Vital Signs
Temp Pulse Resp BP Pulse Ox
98.3 F 72 16 122/46 99
05/21/24 07:05 05/21/24 07:05 05/21/24 07:05 05/21/24 07:05 05/21/24 07:05
I&O
05/20/24 05/21/24 05/22/24
06:59 06:59 06:59
Intake Total 900 / 900 1200 / 1200
Output Total 5 / 1925 1525 / 1525
Balance -1025 / -1025 -325 / -325
Physical Exam
-
General: No Apparent Distress
HEENT: Normocephalic
Respiratory: Negative Wheezes
Cardiac: Regular Rhythm and S1/S2
GI: Soft
Genito-urinary: No Costovertebral Tender
Neuro: AO x 3
Psych: Calm
Data Reviewed
-
Total Time Spent with Patient (in minutes): 42
Labs: Labs Reviewed by me
[2024-05-21 11:45] VITALS: BP 127/62
[2024-05-21 12:37] LABS: Glucose - Point of Care 98 mg/dl (70-99)
[2024-05-21] MEDS: NOVOLOG FLEXPEN-LOW RESISTANCE SC (12:44)
--- NOTE | 2024-05-21 14:07 | CM ---
Addendum entered by Jim Chand 05/21/24 14:32:
Daughter called and spoke with [facility] admissions. They have requested updated records which have been forwarded at this time.
Received call from Fidelina at . She received my message. She does not manage the external appeals. She has forwarded the request to the external appeals department. She has given them CM phone #. External appeals generally take 'a few days'.
This CM requested expedited appeal.
Original Note:
Jany Santos called to report that she received information from denying patient appeal for admission to an acute rehab. They have offered an external review. Jany called liaison Fidelina, who is to initiate the external appeal.
Jany left message for Fidelina. Fidelina's phone # is
[phone] and Fax # is [phone]. This CM also called Fidelina who is out of the office today, and left message requesting return call.
CM called [facility] who does not have any male beds and [facility] who will not have a male bed until next week. Updated records forwarded to [facility] per patient request. carlota Crum will review records.
[2024-05-21] MEDS: INVANZ 60 MG IV (14:43)
[2024-05-21 15:28] VITALS: BP 126/57
[2024-05-21 16:52] LABS: Glucose - Point of Care 188 mg/dl (70-99)
[2024-05-21] MEDS: CRESTOR 20 MG PO (17:02)
[2024-05-21 21:58] LABS: Glucose - Point of Care 117 mg/dl (70-99)
[2024-05-21 23:08] VITALS: BP 142/62
[2024-05-22] MEDS: VANCOCIN 300 ML IV (05:20)
[2024-05-22] MEDS: VANCOCIN 300 MG IV (05:20)
[2024-05-22 07:00] VITALS: BP 141/67
[2024-05-22 07:07] LABS: Glucose - Point of Care 109 mg/dl (70-99)
--- NOTE | 2024-05-22 07:24 | PN.DE.MGMTRT ---
Insulin Management
- -
05/22/2024: Diabetes Management Follow up:
Patient admitted 04/28 with Right heel wound, possible osteomyelitis. PMH: PVD, CAD, HTN, HLD, prior amputation of R 2nd & 3rd toe and left 3rd toe, s/p bypass of LLE, prior stent to RLE, subdural hematoma, Diabetic Neuropathy and T2DM.
Now POD #11 s/p RLE above-knee popliteal artery to peroneal artery using ipsilateral non-reversed great saphenous vein.
Diabetes management Consult requested on 05/10. Was taking Ozempic 1mg Q Mondays, Toujeo 20 units daily, Xigduo BID and Repaglinide 1mg TID. A1C 7.9%, Cr 0.6, eGFR >60.
Pt awake, A/O x3, OOB in chair, offers no complaints, able to discuss diabetes mgt.
Glucose remains stable and in range, premeal 98 to 188, fasting 109 this AM.
Will cont current regimen: Lantus 20 units in AM, Prandin 1mg TID, Farxiga 5mg BID, Metformin 1000mg BID and low corrective with meals
Diabetes History
- -
Type of Diabetes: 2
Pre-Admission Diabetes Regimen
Lab Results
Hemoglobin A1c 7.9 % (4.0-5.6) H 04/29/24 06:54
Insulin Pump Settings
IP Diabetes Regimen
05/21/24 05/21/24 05/21/24
12:36 16:51 21:56
POC Glucose 98 188 H 117 H
05/22/24
07:05
POC Glucose 109 H
Meal type: Dinner
Meal type: Lunch
Meal type: Breakfast
Amount consumed: 100%
Amount consumed: 100%
Amount consumed: 100%
Patient Education
[2024-05-22] MEDS: FLOMAX 0.4 MG PO (07:48)
[2024-05-22] MEDS: OCUVITE SOFTGEL 2 CAP PO (07:48)
[2024-05-22] MEDS: NOVOLOG FLEXPEN-LOW RESISTANCE SC ×3 (07:48→17:55)
[2024-05-22] MEDS: LANTUS 0.2 UNITS SC (07:48)
[2024-05-22] MEDS: XARELTO 2.5 MG PO ×2 (07:58→20:31)
[2024-05-22] MEDS: THERAGRAN 1 TABLET PO (07:58)
[2024-05-22] MEDS: VISBIOME 1 CAP PO (07:58)
[2024-05-22] MEDS: FARXIGA 5 MG PO ×2 (07:58→16:43)
[2024-05-22] MEDS: LOW STRENGTH ASPIRIN 81 MG PO (07:58)
[2024-05-22] MEDS: PRANDIN 1 MG PO ×3 (07:59→16:43)
[2024-05-22] MEDS: COLACE 100 MG PO ×2 (07:59→20:31)
[2024-05-22] MEDS: GLUCOPHAGE 1000 MG PO ×2 (07:59→16:43)
[2024-05-22] MEDS: DAKIN'S SOLUTION 0.125% 1/4 STRENGTH 473 ML TOPICAL (08:05)
[2024-05-22] MEDS: SANTYL OINTMENT 1 APPLIC TOPICAL (08:06)
[2024-05-22] MEDS: DESENEX/MITRAZOL/ZEASORB 1 APPLIC TOPICAL ×2 (08:06→20:37)
--- NOTE | 2024-05-22 08:50 | PHA.VAN.FU ---
Vancomycin Assessment / Plan
- Assessment
Renal Function: No New Labs Today
In the past 24 hrs, patient has been: Afebrile
Concomitant Antimicrobials: ertapenem
- Monitoring Plan
Level(s) appropriate: Recheck trough at minimum of weekly intervals (~05/26), Repeat sooner for changes in renal function or clinical status
- Follow Up
Pharmacy will continue to follow.
Vancomycin Follow UP
- -
Patient Age: 79
Patient Sex: Male
Vancomycin Day #: 25
Indication: Bone And Joint
Requesting Provider: Dr. Stiles / Chitra
Pertinent Antimicrobial Allergies:
NKDA
Height / Weight:
Height 5 ft 11 in
Actual Weight 88.054 kg
IBW in k.3
Adjusted BW in k.5
Pertinent Past Medical History: DM 2, PVD
- Vital Signs / Lab Results
Temp Pulse Resp BP Pulse Ox
98.0 F 61 16 141/67 100
05/22/24 07:00 05/22/24 07:00 05/22/24 07:00 05/22/24 07:00 05/22/24 07:00
Therapeutic Drug Monitoring
Vancomycin Peak Cancelled 05/18/24 09:00
Vancomycin Trough 12.5 ug/ml (5-20) 05/19/24 05:19
--- NOTE | 2024-05-22 11:50 | W.PN.HOSP.TC ---
Today's Communication/Plan
-
awaiting appeals process
Assessment / Plan
Assessment / Plan
Assessment:
Right heel ulcer, possible osteomyelitis
- MRI: Focal small soft tissue defect involving the superficial plantar soft tissues, inferior to the calcaneus. No evidence of collection to suggest abscess. No evidence for osteo myelitis. Intermediate T1-weighted signal within the subcutaneous
soft tissues off the plantar aspect of the posterior and inferior calcaneus, without significant enhancement postcontrast. This could represent soft tissue callus and/or relatively devascularize soft tissues. No evidence of collection. No evidence
for osteomyelitis of the calcaneus. Numerous prominent tortuous enhancing varicose veins within the medial soft tissues of the right lower leg and ankle.
- continue Vanco (requires intensive monitoring of levels) and Ertapenem per ID x 6 weeks through 06/14. ESBL in culture. WBC stable
- PICC in place
- CBC, CMP, vancomycin trough at least weekly on Mondays moving forward
- s/p Right Distal Popliteal - Peroneal artery bypass (SVG) on 05/04. OP Vascular f/u
- s/p excisional bedside debridement 05/06 by Podiatry, OP f/u
- continue wound care per Podiatry/Vascular
- wound VAC applied
E coli/UTI
- already on treatment IV abx
Heart murmur
- d/w pt, he will f/w his PCP to do an echo. No chest pain, no sob, no signs of heart failure.
Hyponatremia, mild
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
- improved with slower infusion
LUE Vancomycin infiltrate
- on Hylenex protocol with VATS team
Nocturnal hypoxia
Resolved.
- desats nocturnally to 78%
- Patient is in need of oxygen at 2 liters/minute via nasal cannula continuously nocturnally due to pulse oximetry of 78% on room air at rest. Oxygen will help to improve hypoxemia. Patient is mobile within the home. DuoNeb therapy has been tried
and is ineffective in treating hypoxemia related symptoms. Oxygen is needed to improve symptoms.
- possibly has sleep apnea; sleep study outpatient recommended
Anemia due to acute blood loss from OR and hemodilution
- monitor. HGB stable at 10
History of osteomyelitis status post amputation of left third toe, right second/third toes
Peripheral vascular disease status post bypass of left lower extremity/stent of right lower extremity
Type 2 diabetes
- hypoglycemic from poor appetite post-op
- insulin sliding scale
- HGB A1c 7.9%
- continue Lantus 20 units
- continue Metformin/Repaglinide/Dapagliflozin
- YIELD CLERK consulting
Diabetic neuropathy
Acute urinary retention
- Voiding Trial
Hyperkalemia, resolved
Hyperlipidemia
- continue statin
History of subdural hematoma
Essential hypertension
- continue lisinopril
DVT ppx: Heparin
Code: Full
Dispo: peer to peer review denied 05/18. Family appealing through member option and decision is pending. Remains medically stable for discharge.
Anticipated Discharge: > 48 hours
Subjective/Interval History
-
Date of Service: May 22, 2024
denies any new complaints at present
ongoing appeals process
Objective Data
-
Vital Signs:
Vital Signs
Temp Pulse Resp BP Pulse Ox
98.0 F 61 16 141/67 100
05/22/24 07:00 05/22/24 07:00 05/22/24 07:00 05/22/24 07:00 05/22/24 07:00
I&O
05/21/24 05/22/24 05/23/24
06:59 06:59 06:59
Intake Total 1200 / 1200 2460 / 2460
Output Total 1525 / 1525 875 / 875
Balance -325 / -325 1585 / 1585
Physical Exam
-
General: No Apparent Distress
HEENT: Normocephalic and Atraumatic
Respiratory: Negative Wheezes or Rales
Cardiac: Regular Rhythm and S1/S2
GI: Soft
Musculoskeletal: No Edema
Neuro: AO x 3
Psych: Calm
Data Reviewed
-
Total Time Spent with Patient (in minutes): 42
Labs: Labs Reviewed by me
[2024-05-22 12:03] LABS: Glucose - Point of Care 128 mg/dl (70-99)
[2024-05-22] MEDS: MERREM 1000 MG IV ×2 (14:04→20:31)
[2024-05-22] MEDS: STERILE WATER FOR INJECTION 20 ML IV ×2 (14:04→20:32)
--- NOTE | 2024-05-22 14:51 | CM ---
Awaiting external appeals determination from . Initiated 05/21/24. Received call from Gr[employer] at [employer] ([phone]) case has been assigned to an external reviewer. Anticipate a determination in a few days. Discussed with patient and
daughter.
--- NOTE | 2024-05-22 15:15 | WOUNDNOTE ---
R PLANTAR MEDIAL HEEL
--- NOTE | 2024-05-22 15:15 | WOUNDNOTE ---
[facility] RN note: Assisted Dr. Erickson with R heel vac dressing change. Wound yellow with scattered pink. Small ss drainage. No surrounding erythema. Patient tolerated will. Skin on L heel blanchable mild red and intact. Protective foam changed L heel.
Sacral crease blanchable mild red and intact. Miconazole powder applied to sacrum. Instructed patient pressure injury prevention measures. Patient can move self in bed. Air chair cushion in recliner chair. Patient getting back to recliner after
visit. Daughter Teetee present who assists patient to recliner chair. Instructed patient frequent LE elevation while in recliner chair to help reduce RLE edema. Scant serous drainage noted on distal R medial calf incision. Dr. Buenrostro in to see
patient at end of visit. Dry gauze applied to R distal calf incision. Dr. Erickson clarified weight bear and activity restrictions with patient and daughter. Patient wears DH pressure relief shoe R foot while out of bed. Dr. Erickson to update weight
bear restriction order. Next vac dressing due Saturday. Dr. Erickson and KIRILL Mckeon RN planning to change R heel vac dressing Saturday around 15:30 if patient still here. On day of discharge to SN/rehab, nursing to remove R heel vac dressing
and apply saline moistened gauze dressing and SNF/rehab to apply their own vac equipment. CM following.
--- NOTE | 2024-05-22 15:15 | WOUNDNOTE ---
R PLANTAR HEEL (after bedside debridement by microfilm operator)
--- NOTE | 2024-05-22 15:15 | WOUNDNOTE ---
R PLANTAR HEEL/FOOT
--- NOTE | 2024-05-22 15:15 | WOUNDNOTE ---
R HEEL (LATERAL) (after bedside debridement by director of group counseling program)
--- NOTE | 2024-05-22 15:25 | W.PN.POD ---
Today's Communication
Today's Communication
Patient again seen today with his daughter, Jany rubi Jeannette, material lister at bedside. Wound vac removed.
Stringy fibrofatty tissue was again sharply, non excisionally debrided using sterile dissecting scissors and forceps through the epidermis, dermis and into subcutaneous tissue, fascia.Minimal to moderate bleeding encountered. Bleeding treated with
pressure. The patient tolerated well with no discomfort.
Wound again irriagted with dakins solution, pat dry with sterile gauze and santyl ointment applied to wound bed and wound VAC dressing was reapplied
SNF placement is still pending as result of insurance and complexity of care.
If patient is here Saturday, I will return, remove the wound VAC with material lister and re evaluate the wound.
If he is DC to SNF, WOUND CARE to the right heel is same as above: Cleanse with Dakins solution or Vashe, pat dry, apply nickel thick santyl ointment to wound bed and re apply wound vac (black foam dressing bridged to the distal leg 125mmHg,
continuous, low settings) and I will follow as outpatient.
NWB status RLE- OK for PWB to the right forefoot for transfers to chair and for BRP up to 25 feet
Assessment / Plan
-
1-DM2 with PAD- S/P successful Right lower extremity above-knee popliteal artery to peroneal artery
2-DM2 with DPN and LOPS
3-Stage 4/diabetic heel wound S/P full thickness repeated bedside debridements on wound vac therapy
Subjective
Chief Complaint
non healing right heel wound/PAD
Subjective
no concerns offered
Objective
Temp Pulse Resp BP Pulse Ox
98.0 F 61 16 141/67 100
05/22/24 07:00 05/22/24 07:00 05/22/24 07:00 05/22/24 07:00 05/22/24 07:00
05/19/24 05:19
05/19/24 05:19
Vital Signs and Lab results were reviewed.
Inspection: Cellulitis (none), Inflammation (none) and Ulcer (Vac removed for evaluation)
Review of Systems
Review of Systems
Review of Systems: No Fever, No Chills, No Headache, No Nausea, No Diarrhea and No Skin Rash
Physical Exam
Physical Exam
General: No Apparent Distress, Comfortable and Conversant
Musculoskeletal: No Clubbing and Edema, Right Lower Extrem
Skin: Warm, Dry and Other (stage 4 right heel with fibrotic fascia exposed, increased granulation to the periphery, fibrofatty tissue, no necrosis, no odor or purulence)
Neuro: AO x 3 and Protective Sensation Absent
Vascular: Capillary Refill Delayed, Pedal Hair Absent and Skin Temperature Warm to Cool
Dorsalis Pedis: Diminished
Posterior Tibialis: Diminished
[2024-05-22 15:35] VITALS: BP 123/55
--- NOTE | 2024-05-22 15:53 | W.PN.ID1 ---
Date of Service
Date of Service: May 22, 2024
Today's Communication
switched ertapenem to meropenem
Assessment / Plan
Diabetic Foot Infection
Suspected Osteomyelitis of the (R) heel
S/p Right lower extremity above-knee popliteal artery to peroneal artery 05/04
PAD- s/p RLE revascularization (05/04/24)
CAD
History of poor wound healing
- wound cultures - ESBL E. coli and Diphtheroid
- QTc 435
- wound vac in place
- continue 6 week course of IV meropenem and vancomycin 05/04-06/14
- switched from ertapenem to meropenem due to cost concerns
- PICC in place
- cbc, cmp, vanc trough at least weekly moving forward
- saw patient at his request today
Chief Complaint
-: Other (diabetic foot infection)
Subjective / Review of Systems
afebrile
had further debridement at the bedside today of fibrofatty tissue
Vital Signs / Physical Exam
Vital Signs
Vital Signs
Temp Pulse Resp BP Pulse Ox
98.0 F 61 16 141/67 100
05/22/24 07:00 05/22/24 07:00 05/22/24 07:00 05/22/24 07:00 05/22/24 07:00
Physical Exam
Constitutional: No Acute Distress and Chronically Ill
Cardiovascular: Regular Rate
Pulmonary: Symmetric
Gastrointestinal: Non Tender
Wound: Other (wound vac back in place; minimal serous drainage from inferior portion of the vascular surgical site)
Lines: PICC
Objective Data
Lab Data
Lab Results
05/19/24 05:19
05/19/24 05:19
PT 16.2 Sec (11.4-14.6) H 05/05/24 04:26
INR 1.32 05/05/24 04:26
APTT 34.3 Sec (23.4-35.0) 05/05/24 04:26
Estimated Creat Clear 110 ml/min 05/19/24 05:19
Total Bilirubin 0.4 mg/dl (0.2-1.3) 05/19/24 05:19
AST 24 U/L (17-59) 05/19/24 05:19
ALT 35 U/L (0-50) 05/19/24 05:19
Alkaline Phosphatase 116 U/L (38-126) 05/19/24 05:19
Most recent labs reviewed.
Micro Results:
04/28/24 19:49 Wound Culture - Final
Heel - Right Escherichia coli - ESBL
Gram Stain - Final
04/28/24 22:49 MRSA Screen - Final
Nose No Methicillin Resistant Staphylococcus aureus isolated.
SPEC #: [id number] GLORY: 04/28/24
SOURCE: HEEL
SPDESC: Right
ORDERED: Wound/Other
Wound/abscess/other Cult Final
Many Escherichia coli - ESBL*
Few Diptheroids
Organism 1 Escherichia coli - ESBL
1. Escherichia coli - ESBL
M.I.C. RX
--------- ---
Amoxicillin/Potas. Clavulanate >16/8 R
Ampicillin >16 R
Ampicillin/Sulbactam <=8/4 S
Cefazolin >16 R
Cefepime <=2 S
Ceftazidime 8 I
Ceftriaxone >2 R
Ertapenem <=0.5 S
Ciprofloxacin <=0.25 S
Gentamicin <=4 S
Levofloxacin <=0.5 S
Meropenem <=1 S
Piperacillin/Tazobactam <=16 S
Tobramycin <=4 S
Trimethoprim/Sulfamethoxazole <=2/38 S
Care Review
Plan reviewed with: Physician (Dr Erickson - antibiotics)
[2024-05-22 17:40] LABS: Glucose - Point of Care 148 mg/dl (70-99)
[2024-05-22] MEDS: CRESTOR 20 MG PO (17:55)
[2024-05-22 21:46] LABS: Glucose - Point of Care 143 mg/dl (70-99)
[2024-05-22 23:52] VITALS: BP 123/58
[2024-05-23] MEDS: STERILE WATER FOR INJECTION 20 ML IV ×3 (04:35→19:45)
[2024-05-23] MEDS: MERREM 1000 MG IV ×3 (04:35→19:40)
[2024-05-23] MEDS: VANCOCIN 300 ML IV (06:18)
[2024-05-23] MEDS: VANCOCIN 300 MG IV (06:18)
[2024-05-23 07:00] VITALS: BP 134/64
[2024-05-23 07:19] LABS: Glucose - Point of Care 113 mg/dl (70-99)
--- NOTE | 2024-05-23 07:59 | PHA.VAN.FU ---
Vancomycin Assessment / Plan
- Assessment
Renal Function: No New Labs Today
In the past 24 hrs, patient has been: Afebrile
Concomitant Antimicrobials: Meropenem
- Dosing Plan
Continue: Vanc 1500mg IV Q24H
- Monitoring Plan
No level(s) ordered at this time: Consider levels around 8/20 dose.
- Follow Up
Pharmacy will continue to follow.
Vancomycin Follow UP
- -
Patient Age: 79
Patient Sex: Male
Vancomycin Day #: 26
Indication: Bone And Joint
Requesting Provider: Dr. Sitles / Chitra
Pertinent Antimicrobial Allergies:
NKDA
Height / Weight:
Height 5 ft 11 in
Actual Weight 88.054 kg
IBW in k.3
Adjusted BW in k.5
Pertinent Past Medical History: DM 2, PVD
- Vital Signs / Lab Results
Temp Pulse Resp BP Pulse Ox
97.2 F 59 18 123/58 96
05/22/24 23:52 05/22/24 23:52 05/22/24 23:52 05/22/24 23:52 05/22/24 23:52
Therapeutic Drug Monitoring
Vancomycin Peak Cancelled 05/18/24 09:00
Vancomycin Trough 12.5 ug/ml (5-20) 05/19/24 05:19
[2024-05-23] MEDS: VISBIOME 1 CAP PO (08:02)
[2024-05-23] MEDS: FARXIGA 5 MG PO ×2 (08:02→17:07)
[2024-05-23] MEDS: THERAGRAN 1 TABLET PO (08:02)
[2024-05-23] MEDS: LOW STRENGTH ASPIRIN 81 MG PO (08:02)
[2024-05-23] MEDS: COLACE 100 MG PO ×2 (08:02→19:40)
[2024-05-23] MEDS: FLOMAX 0.4 MG PO (08:02)
[2024-05-23] MEDS: OCUVITE SOFTGEL 2 CAP PO (08:02)
[2024-05-23] MEDS: NOVOLOG FLEXPEN-LOW RESISTANCE SC ×2 (08:02→14:25)
[2024-05-23] MEDS: PRANDIN 1 MG PO ×3 (08:03→17:07)
[2024-05-23] MEDS: XARELTO 2.5 MG PO ×2 (08:03→19:40)
[2024-05-23] MEDS: GLUCOPHAGE 1000 MG PO ×2 (08:03→17:07)
[2024-05-23] MEDS: LANTUS 0.2 UNITS SC (08:08)
[2024-05-23] MEDS: DESENEX/MITRAZOL/ZEASORB 1 APPLIC TOPICAL ×2 (08:08→19:45)
[2024-05-23] MEDS: SANTYL OINTMENT TOPICAL (08:09)
[2024-05-23] MEDS: DAKIN'S SOLUTION 0.125% 1/4 STRENGTH TOPICAL (08:09)
--- NOTE | 2024-05-23 08:12 | W.PN.HOSP.TC ---
Today's Communication/Plan
-
awaiting appeals process
Assessment / Plan
Assessment / Plan
Assessment:
Right heel ulcer, possible osteomyelitis
- MRI: Focal small soft tissue defect involving the superficial plantar soft tissues, inferior to the calcaneus. No evidence of collection to suggest abscess. No evidence for osteo myelitis. Intermediate T1-weighted signal within the subcutaneous
soft tissues off the plantar aspect of the posterior and inferior calcaneus, without significant enhancement postcontrast. This could represent soft tissue callus and/or relatively devascularize soft tissues. No evidence of collection. No evidence
for osteomyelitis of the calcaneus. Numerous prominent tortuous enhancing varicose veins within the medial soft tissues of the right lower leg and ankle.
- continue Vanco (requires intensive monitoring of levels) and Meropenem per ID x 6 weeks through 06/14. ESBL in culture. WBC stable
- PICC in place
- CBC, CMP, vancomycin trough at least weekly on Mondays moving forward
- s/p Right Distal Popliteal - Peroneal artery bypass (SVG) on 05/04. OP Vascular f/u
- s/p excisional bedside debridement 05/06 by Podiatry, OP f/u
- continue wound care per Podiatry/Vascular
- wound VAC applied
E coli/UTI
- already on treatment IV abx
Heart murmur
- d/w pt, he will f/w his PCP to do an echo. No chest pain, no sob, no signs of heart failure.
Hyponatremia, mild
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
- improved with slower infusion
LUE Vancomycin infiltrate
- on Hylenex protocol with VATS team
Nocturnal hypoxia
Resolved.
- desats nocturnally to 78%
- Patient is in need of oxygen at 2 liters/minute via nasal cannula continuously nocturnally due to pulse oximetry of 78% on room air at rest. Oxygen will help to improve hypoxemia. Patient is mobile within the home. DuoNeb therapy has been tried
and is ineffective in treating hypoxemia related symptoms. Oxygen is needed to improve symptoms.
- possibly has sleep apnea; sleep study outpatient recommended
Anemia due to acute blood loss from OR and hemodilution
- monitor. HGB stable at 10
History of osteomyelitis status post amputation of left third toe, right second/third toes
Peripheral vascular disease status post bypass of left lower extremity/stent of right lower extremity
Type 2 diabetes
- hypoglycemic from poor appetite post-op
- insulin sliding scale
- HGB A1c 7.9%
- continue Lantus 20 units
- continue Metformin/Repaglinide/Dapagliflozin
- CLEANER OPERATOR consulting
Diabetic neuropathy
Acute urinary retention
- Voiding Trial
Hyperkalemia, resolved
Hyperlipidemia
- continue statin
History of subdural hematoma
Essential hypertension
- continue lisinopril
DVT ppx: Heparin
Code: Full
Dispo: peer to peer review denied 05/18. Family appealing through member option and decision is pending. Remains medically stable for discharge.
Anticipated Discharge: > 48 hours
Subjective/Interval History
-
Date of Service: May 23, 2024
no overnight events
Objective Data
-
Vital Signs:
Vital Signs
Temp Pulse Resp BP Pulse Ox
97.2 F 59 18 123/58 96
05/22/24 23:52 05/22/24 23:52 05/22/24 23:52 05/22/24 23:52 05/22/24 23:52
I&O
05/22/24 05/23/24 05/24/24
06:59 06:59 06:59
Intake Total 2460 / 2460 890 / 890
Output Total 875 / 875 1350 / 1350
Balance 1585 / 1585 -460 / -460
Physical Exam
-
General: No Apparent Distress
HEENT: Normocephalic and Atraumatic
Respiratory: Negative Wheezes
Cardiac: Regular Rhythm and S1/S2
GI: Soft
Genito-urinary: No Costovertebral Tender
Neuro: AO x 3
Psych: Calm
Data Reviewed
-
Total Time Spent with Patient (in minutes): 41
Labs: Labs Reviewed by me
[2024-05-23] MEDS: FLUSH (NSS) 2 FLUSH IV (13:32)
[2024-05-23 13:35] LABS: Glucose - Point of Care 121 mg/dl (70-99)
[2024-05-23 15:00] VITALS: BP 136/58
--- NOTE | 2024-05-23 16:27 | CM ---
CM recieved fax from [facility] Review that appears to be in agreement for acute and denial overturned, however for dates 05/16-05/17. CM called Reviewer back [phone] and told yes their PMR is in agreement for acute rehab
however CM will need to contact the health plan to get a new auth with the correct dates.
Will need updated therapy notes PT and OT in AM if possible to start working on new auth.
Following CM to assist. Handoff to be provided via [facility].
[2024-05-23] MEDS: CRESTOR 20 MG PO (17:07)
[2024-05-23 17:31] LABS: Glucose - Point of Care 208 mg/dl (70-99)
[2024-05-23] MEDS: NOVOLOG FLEXPEN-LOW RESISTANCE 2 UNITS SC (17:34)
[2024-05-23 21:37] LABS: Glucose - Point of Care 172 mg/dl (70-99)
[2024-05-23 23:45] VITALS: BP 120/53
[2024-05-24] MEDS: STERILE WATER FOR INJECTION 20 ML IV ×3 (05:03→21:25)
[2024-05-24] MEDS: MERREM 1000 MG IV ×3 (05:03→21:24)
[2024-05-24] MEDS: VANCOCIN 300 ML IV (05:04)
[2024-05-24] MEDS: VANCOCIN 300 MG IV (05:04)
[2024-05-24 06:59] LABS: Glucose - Point of Care 90 mg/dl (70-99)
[2024-05-24 07:00] VITALS: BP 127/70
--- NOTE | 2024-05-24 08:11 | PHA.VAN.FU ---
Vancomycin Assessment / Plan
- Assessment
Renal Function: No New Labs Today
In the past 24 hrs, patient has been: Afebrile
Concomitant Antimicrobials: Meropenem
- Dosing Plan
Continue: Vanc 1500mg IV Q24H
- Monitoring Plan
No level(s) ordered at this time: Check trough prior to 05/26 dose.
- Follow Up
Pharmacy will continue to follow.
Vancomycin Follow UP
- -
Patient Age: 79
Patient Sex: Male
Vancomycin Day #: 27
Indication: Bone And Joint
Requesting Provider: Dr. Stiles / Chitra
Pertinent Antimicrobial Allergies:
NKDA
Height / Weight:
Height 5 ft 11 in
Actual Weight 88.054 kg
IBW in k.3
Adjusted BW in k.5
Pertinent Past Medical History: DM 2, PVD
- Vital Signs / Lab Results
Temp Pulse Resp BP Pulse Ox
97.7 F 59 16 127/70 98
05/24/24 07:00 05/24/24 07:00 05/24/24 07:00 05/24/24 07:00 05/24/24 07:00
Therapeutic Drug Monitoring
Vancomycin Peak Cancelled 05/18/24 09:00
Vancomycin Trough 12.5 ug/ml (5-20) 05/19/24 05:19
--- NOTE | 2024-05-24 08:14 | W.PN.HOSP.TC ---
Today's Communication/Plan
-
continue IV abx, wound care, VAC changes
await appeals process outcomes
Assessment / Plan
Assessment / Plan
Assessment:
Right heel ulcer, possible osteomyelitis
- MRI: Focal small soft tissue defect involving the superficial plantar soft tissues, inferior to the calcaneus. No evidence of collection to suggest abscess. No evidence for osteo myelitis. Intermediate T1-weighted signal within the subcutaneous
soft tissues off the plantar aspect of the posterior and inferior calcaneus, without significant enhancement postcontrast. This could represent soft tissue callus and/or relatively devascularize soft tissues. No evidence of collection. No evidence
for osteomyelitis of the calcaneus. Numerous prominent tortuous enhancing varicose veins within the medial soft tissues of the right lower leg and ankle.
- continue Vanco/Meropenem per ID x 6 weeks through 06/14. ESBL in culture. WBC stable
- PICC in place
- CBC, CMP, vancomycin trough weekly on Mondays moving forward
- s/p Right Distal Popliteal - Peroneal artery bypass (SVG) on 05/04. OP Vascular f/u. Vascular signed off.
- s/p excisional bedside debridement 05/06 by Podiatry, OP f/u
- continue wound care per Podiatry/Vascular
- wound VAC applied and being changed every other day
E coli/UTI
- already on treatment IV abx
Heart murmur
- d/w pt, he will f/w his PCP to do an echo. No chest pain, no sob, no signs of heart failure.
Hyponatremia, mild
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
- improved with slower infusion
LUE Vancomycin infiltrate
- on Hylenex protocol with VATS team
Nocturnal hypoxia
Resolved.
- desats nocturnally to 78%
- Patient is in need of oxygen at 2 liters/minute via nasal cannula continuously nocturnally due to pulse oximetry of 78% on room air at rest. Oxygen will help to improve hypoxemia. Patient is mobile within the home. DuoNeb therapy has been tried
and is ineffective in treating hypoxemia related symptoms. Oxygen is needed to improve symptoms.
- possibly has sleep apnea; sleep study outpatient recommended
Anemia due to acute blood loss from OR and hemodilution
- monitor. HGB stable at 10
History of osteomyelitis status post amputation of left third toe, right second/third toes
Peripheral vascular disease status post bypass of left lower extremity/stent of right lower extremity
Type 2 diabetes
- hypoglycemic from poor appetite post-op
- insulin sliding scale
- HGB A1c 7.9%
- continue Lantus 20 units
- continue Metformin/Repaglinide/Dapagliflozin
- RADIO/TV TECHNICIAN consulting
Diabetic neuropathy
Acute urinary retention
- s/p Frey and now successfully voiding
Hyperkalemia, resolved
Hyperlipidemia
- continue statin
History of subdural hematoma
Essential hypertension
- continue lisinopril
DVT ppx: Heparin
Code: Full
Dispo: peer to peer review denied 05/18. Family appealing through member option and decision is pending. Remains medically stable for discharge.
Anticipated Discharge: > 48 hours
Subjective/Interval History
-
Date of Service: May 24, 2024
no new complaints
Objective Data
-
Vital Signs:
Vital Signs
Temp Pulse Resp BP Pulse Ox
97.7 F 59 16 127/70 98
05/24/24 07:00 05/24/24 07:00 05/24/24 07:00 05/24/24 07:00 05/24/24 07:00
I&O
05/23/24 05/24/24 05/25/24
06:59 06:59 06:59
Intake Total 890 / 890 1150 / 1150
Output Total 1350 / 1350 525 / 525
Balance -460 / -460 625 / 625
Physical Exam
-
General: No Apparent Distress
HEENT: Normocephalic and Atraumatic
Respiratory: Negative Wheezes
Cardiac: Regular Rhythm and S1/S2
GI: Soft
Skin: Other (RLE wound vac)
Neuro: AO x 3
Psych: Calm
Data Reviewed
-
Total Time Spent with Patient (in minutes): 42
Labs: Labs Reviewed by me
[2024-05-24] MEDS: VISBIOME 1 CAP PO (08:21)
[2024-05-24] MEDS: GLUCOPHAGE 1000 MG PO ×2 (08:21→16:57)
[2024-05-24] MEDS: THERAGRAN 1 TABLET PO (08:21)
[2024-05-24] MEDS: OCUVITE SOFTGEL 2 CAP PO (08:21)
[2024-05-24] MEDS: FARXIGA 5 MG PO ×2 (08:21→16:58)
[2024-05-24] MEDS: FLOMAX 0.4 MG PO (08:21)
[2024-05-24] MEDS: PRANDIN 1 MG PO ×3 (08:21→16:58)
[2024-05-24] MEDS: XARELTO 2.5 MG PO ×2 (08:21→21:25)
[2024-05-24] MEDS: LOW STRENGTH ASPIRIN 81 MG PO (08:21)
[2024-05-24] MEDS: COLACE 100 MG PO ×2 (08:22→21:24)
[2024-05-24] MEDS: DAKIN'S SOLUTION 0.125% 1/4 STRENGTH TOPICAL ×2 (08:22→08:34)
[2024-05-24] MEDS: SANTYL OINTMENT TOPICAL ×2 (08:22→08:34)
[2024-05-24] MEDS: NOVOLOG FLEXPEN-LOW RESISTANCE SC (08:23)
[2024-05-24] MEDS: DESENEX/MITRAZOL/ZEASORB 1 APPLIC TOPICAL ×2 (08:26→21:24)
[2024-05-24] MEDS: LANTUS 0.2 UNITS SC (08:37)
--- NOTE | 2024-05-24 09:07 | CM ---
Addendum entered by Dilcia Milton RN 05/24/24 11:22:
Received call from pedro Carmichael; provided update waiting for insurance to provide auth of days, and [facility] to have availbable bed.
Received callback from [facility]; they did not receive a Letter overturning the denial. CM will need to follow up tomorrow to update auth days for acute rehab.
Plan [facility] once insurance auth dates are obtained, and [facility] acute rehab has an available bed.
Original Note:
Patient with Dx Right heel ulcer, possible osteomyelitis s/p Right Distal Popliteal - Peroneal artery bypass, UTI, Anemia. Room air. Receiving IV Abx - continue 6 week course of IV meropenem and vancomycin until 06/14. PICC line. Seen by wound
care nurse- Wound VAC heel. NWB status RLE. PT & OT 05/21 recommend acute rehab.
Noting fax received yesterday from [facility] [employer] Reviewer; denial for acute rehab overturned.
Spoke with SHERRELL Roberts; requested callback from clinical reviewer for updated auth dates for acute rehab. scalloper clinical reviewer will callback. No reference # provided.
Message to PT/OT requesting updated therapy notes today.
Spoke with Lee Bell [facility] (ph [phone]); informed her that denial was overturned and waiting for insurance c/b to get updated auth dates. Arabella was made aware patient will need Wound VAC. She will see if they have an available bed
today.
Spoke with patient and provided update that his denial was overturned and we are waiting for insurance to provide auth dates, and for [facility] to have an available bed. He will let his and daughter know.
Plan [facility] once insurance auth dates are obtained, and acute rehab has an available bed.
[2024-05-24] MEDS: FLUSH (NSS) 2 FLUSH IV (11:23)
[2024-05-24 11:28] LABS: Glucose - Point of Care 162 mg/dl (70-99)
[2024-05-24] MEDS: NOVOLOG FLEXPEN-LOW RESISTANCE 1 UNITS SC ×2 (11:28→16:58)
[2024-05-24 15:00] VITALS: BP 127/61
[2024-05-24] MEDS: CRESTOR 20 MG PO (16:58)
[2024-05-24 16:59] LABS: Glucose - Point of Care 176 mg/dl (70-99)
[2024-05-24 21:35] LABS: Glucose - Point of Care 126 mg/dl (70-99)
[2024-05-24 23:14] VITALS: BP 124/61
[2024-05-25] MEDS: STERILE WATER FOR INJECTION 20 ML IV ×3 (04:51→21:00)
[2024-05-25] MEDS: MERREM 1000 MG IV ×3 (04:51→21:00)
[2024-05-25 05:28] LABS: ALT (SGPT) 33 U/L (0-50); AST (SGOT) 26 U/L (17-59); Albumin 3.2 g/dl (3.5-5.0); Alkaline Phosphatase 120 U/L (38-126); Blood Urea Nitrogen 31 mg/dl (9-20); Calcium 8.9 mg/dl (8.4-10.2); Carbon Dioxide 29 mmol/L (22-30); Chloride 103 mmol/L (98-107); Estimated Creatinine Clearance 94 ml/min; Glucose 118 mg/dl (70-99); Potassium 4.6 mmol/L (3.5-5.1); Sodium 137 mmol/L (135-145); Total Bilirubin 0.4 mg/dl (0.2-1.3); Total Protein 5.7 g/dl (6.3-8.2); eGFR > 60.00
[2024-05-25 05:32] LABS: Vancomycin Trough 11.3 ug/ml (5-20)
[2024-05-25 05:38] LABS: % Basophils 1.3 % (0-2); % Eosinophils 5.7 % (0-6); % Immature Granulocytes 0.4 % (0-0.5); % Lymphocytes 24.7 % (20.5-51.1); % Monocytes 10.9 % (1.7-9.3); Absolute Basophils 0.1 10^3/uL (0-0.2); Absolute Eosinophils 0.4 10^3/uL (0-0.7); Absolute Lymphocytes 1.7 10^3/uL (1.2-3.4); Absolute Monocytes 0.8 10^3/uL (0.1-0.6); Hematocrit 33.6 % (39.0-52.0); Mean Corp Hgb Conc. 32.7 g/dL (33.0-37.0); Mean Corpuscular Hgb 27.8 pg (27.0-31.0); Mean Corpuscular Volume 84.8 fL (80.0-94.0); Mean Platelet Volume 9.9 fL (7.4-10.4); Nucleated Red Blood Cells % 0 % (-); Platelet Count 206 10^3/uL (130-400); Red Blood Cell Count 3.96 10^6/uL (4.70-6.10); Red Cell Dist. Width 13.7 % (11.5-14.5)
[2024-05-25] MEDS: VANCOCIN 300 MG IV (05:45)
[2024-05-25] MEDS: VANCOCIN 300 ML IV (05:45)
[2024-05-25 07:00] VITALS: BP 127/64
--- NOTE | 2024-05-25 07:12 | PHA.VAN.FU ---
Vancomycin Assessment / Plan
- Assessment
Renal Function: Stable
WBC's are: WNL
In the past 24 hrs, patient has been: Afebrile
Concomitant Antimicrobials: Meropenem
- Assessment - Trough Based Monitoring
Trough Value: 11.3
Level Today was: Appropriate
- Dosing Plan
Continue: 1500MG DAILY
- Monitoring Plan
Level(s) appropriate: Recheck trough at minimum of weekly intervals (~06/01), Repeat sooner for changes in renal function or clinical status
- Follow Up
Pharmacy will continue to follow.
Vancomycin Follow UP
- -
Patient Age: 79
Patient Sex: Male
Vancomycin Day #: 28
Indication: Bone And Joint
Requesting Provider: Dr. Stiles / Chitra
Pertinent Antimicrobial Allergies:
NKDA
Height / Weight:
Height 5 ft 11 in
Actual Weight 88.054 kg
IBW in k.3
Adjusted BW in k.5
Pertinent Past Medical History: DM 2, PVD
- Vital Signs / Lab Results
Temp Pulse Resp BP Pulse Ox
97.4 F 66 19 124/61 98
05/24/24 23:14 05/24/24 23:14 05/24/24 23:14 05/24/24 23:14 05/24/24 23:14
Lab Results - Hematology
05/25/24
04:56
WBC 7.0
Lab Results - Chemistry
05/25/24
04:56
BUN 31 H
Creatinine 0.7
Estimated Creat Clear 94
Albumin 3.2 L
Therapeutic Drug Monitoring
Vancomycin Peak Cancelled 05/18/24 09:00
Vancomycin Trough 11.3 ug/ml (5-20) 05/25/24 04:56
[2024-05-25 07:20] LABS: Glucose - Point of Care 141 mg/dl (70-99)
[2024-05-25] MEDS: OCUVITE SOFTGEL 2 CAP PO (08:03)
[2024-05-25] MEDS: NOVOLOG FLEXPEN-LOW RESISTANCE SC (08:03)
[2024-05-25] MEDS: FLOMAX 0.4 MG PO (08:04)
[2024-05-25] MEDS: COLACE PO ×4 (08:04→21:00)
[2024-05-25] MEDS: FARXIGA 5 MG PO ×2 (08:04→16:46)
[2024-05-25] MEDS: GLUCOPHAGE 1000 MG PO ×2 (08:04→16:46)
[2024-05-25] MEDS: PRANDIN 1 MG PO ×3 (08:04→16:46)
[2024-05-25] MEDS: XARELTO 2.5 MG PO ×2 (08:04→21:00)
[2024-05-25] MEDS: THERAGRAN 1 TABLET PO (08:04)
[2024-05-25] MEDS: LOW STRENGTH ASPIRIN 81 MG PO (08:04)
[2024-05-25] MEDS: VISBIOME 1 CAP PO (08:04)
[2024-05-25] MEDS: LANTUS 0.2 UNITS SC (08:04)
[2024-05-25] MEDS: DAKIN'S SOLUTION 0.125% 1/4 STRENGTH 1 ML TOPICAL (08:04)
[2024-05-25] MEDS: DESENEX/MITRAZOL/ZEASORB 1 APPLIC TOPICAL ×2 (08:05→21:00)
[2024-05-25] MEDS: SANTYL OINTMENT 1 APPLIC TOPICAL (08:05)
--- NOTE | 2024-05-25 08:36 | PN.DE.MGMTRT ---
Insulin Management
- -
05/25/2024: Diabetes Management F/U:
Patient admitted 04/28 with Right heel wound, possible osteomyelitis. PMH: PVD, CAD, HTN, HLD, prior amputation of R 2nd & 3rd toe and left 3rd toe, s/p bypass of LLE, prior stent to RLE, subdural hematoma, Diabetic Neuropathy and T2DM.
Now POD #11 s/p RLE above-knee popliteal artery to peroneal artery using ipsilateral non-reversed great saphenous vein.
Diabetes management Consult requested on 05/10. Was taking Ozempic 1mg Q Mondays, Toujeo 20 units daily, Xigduo BID and Repaglinide 1mg TID. A1C 7.9%, Cr 0.6, eGFR >60.
Pt awake, A/O x3, OOB in chair, offers no complaints, able to discuss diabetes mgt.
Glucose remains stable and in range, premeal 90 to 176, fasting 118 this AM.
Will cont current regimen: Lantus 20 units in AM, Prandin 1mg TID, Farxiga 5mg BID, Metformin 1000mg BID and low corrective with meals
Diabetes History
- -
Type of Diabetes: 2 requiring insulin
Pre-Admission Diabetes Regimen
05/25/24
04:56
Creatinine 0.7
Lab Results
Hemoglobin A1c 7.9 % (4.0-5.6) H 04/29/24 06:54
Insulin Pump Settings
IP Diabetes Regimen
05/24/24 05/24/24 05/24/24
11:27 16:58 21:32
Glucose
POC Glucose 162 H 176 H 126 H
05/25/24 05/25/24
04:56 07:17
Glucose 118 H
POC Glucose 141 H
Meal type: Dinner
Meal type: Lunch
Meal type: Breakfast
Amount consumed: 100%
Amount consumed: 100%
Amount consumed: 100%
Patient Education
[2024-05-25 11:48] LABS: Glucose - Point of Care 177 mg/dl (70-99)
[2024-05-25] MEDS: NOVOLOG FLEXPEN-LOW RESISTANCE 1 UNITS SC (11:51)
[2024-05-25 15:00] VITALS: BP 136/56
--- NOTE | 2024-05-25 15:22 | CM ---
Addendum entered by Jim Chand 05/25/24 15:30:
When bed available needs to call Miguel at # [phone] Ext [phone] to change coverage dates on denial reversal.
Original Note:
External physician review has reversed denial for [facility] acute rehab. [facility] was planning on a discharge today and patient was to have that bed. The patient scheduled for discharge did not leave and appealed his discharge. Patient will have
1st available bed. Patient, daughter, team aware.
--- NOTE | 2024-05-25 16:14 | WOUNDNOTE ---
R HEEL BEFORE DEBRIDEMENT WITH FLASH
--- NOTE | 2024-05-25 16:14 | WOUNDNOTE ---
R HEEL POST DEBRIDEMENT WITH FLASH
--- NOTE | 2024-05-25 16:16 | WOUNDNOTE ---
WON RN NOTE: R heel debridement done by Dr. Erickson at bedside, wound improving. Re applied NPWT with Santyl at base then black foam to 125mmhg, done with Dr. Erickson. Plan is for discharge when bed available to [facility]. Nurse John made aware
that when he is discharged to remove vac dressing and apply Santyl with moistened gauze over wound then dry dressing until facility can apply own wound vac. Nurse aware to place Vac machine in soiled utility rm for pickup.
--- NOTE | 2024-05-25 16:20 | WOUNDNOTE ---
WON RN NOTE: R heel debridement done by Dr. Erickson at bedside, wound improving. Re applied NPWT with Santyl at base then black foam to 125mmhg, done with Dr. Erickson. Plan is for discharge when bed available to [facility]. Nurse John made aware
that when he is discharged to remove vac dressing and apply Santyl with moistened gauze over wound then dry dressing until facility can apply own wound vac. Nurse aware to place Vac machine in soiled utility rm for pickup. Sacrum assessed, remains
intact, fungal powder applied as requested from daughter.
[2024-05-25 16:45] LABS: Glucose - Point of Care 220 mg/dl (70-99)
[2024-05-25] MEDS: NOVOLOG FLEXPEN-LOW RESISTANCE 2 UNITS SC (16:45)
[2024-05-25] MEDS: CRESTOR 20 MG PO (16:48)
--- NOTE | 2024-05-25 17:33 | W.PN.HOSP.TC ---
Today's Communication/Plan
-
DC to [facility] rehab once bed available
Assessment / Plan
Assessment / Plan
Assessment:
Right heel ulcer, possible osteomyelitis
- MRI: Focal small soft tissue defect involving the superficial plantar soft tissues, inferior to the calcaneus. No evidence of collection to suggest abscess. No evidence for osteo myelitis. Intermediate T1-weighted signal within the subcutaneous
soft tissues off the plantar aspect of the posterior and inferior calcaneus, without significant enhancement postcontrast. This could represent soft tissue callus and/or relatively devascularize soft tissues. No evidence of collection. No evidence
for osteomyelitis of the calcaneus. Numerous prominent tortuous enhancing varicose veins within the medial soft tissues of the right lower leg and ankle.
- continue Vanco/Meropenem per ID x 6 weeks through 06/14. ESBL in culture. WBC stable
- PICC in place
- CBC, CMP, vancomycin trough weekly on Mondays moving forward
- s/p Right Distal Popliteal - Peroneal artery bypass (SVG) on 05/04. OP Vascular f/u. Vascular signed off.
- s/p excisional bedside debridement 05/06 by Podiatry, OP f/u
- continue wound care per Podiatry/Vascular
- wound VAC applied and being changed every other day
E coli/UTI
- already on treatment IV abx
Heart murmur
- d/w pt, he will f/w his PCP to do an echo. No chest pain, no sob, no signs of heart failure.
Hyponatremia, mild
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
- improved with slower infusion
LUE Vancomycin infiltrate
- on Hylenex protocol with VATS team
Nocturnal hypoxia
Resolved.
- desats nocturnally to 78%
- Patient is in need of oxygen at 2 liters/minute via nasal cannula continuously nocturnally due to pulse oximetry of 78% on room air at rest. Oxygen will help to improve hypoxemia. Patient is mobile within the home. DuoNeb therapy has been tried
and is ineffective in treating hypoxemia related symptoms. Oxygen is needed to improve symptoms.
- possibly has sleep apnea; sleep study outpatient recommended
Anemia due to acute blood loss from OR and hemodilution
- monitor. HGB stable at 10
History of osteomyelitis status post amputation of left third toe, right second/third toes
Peripheral vascular disease status post bypass of left lower extremity/stent of right lower extremity
Type 2 diabetes
- hypoglycemic from poor appetite post-op
- insulin sliding scale
- HGB A1c 7.9%
- continue Lantus 20 units
- continue Metformin/Repaglinide/Dapagliflozin
- METAL BURRER consulting
Diabetic neuropathy
Acute urinary retention
- s/p Frey and now successfully voiding
Hyperkalemia, resolved
Hyperlipidemia
- continue statin
History of subdural hematoma
Essential hypertension
- continue lisinopril
DVT ppx: Heparin
Code: Full
Dispo: peer to peer review denied 05/18. As per CM note, external physician review has reversed denial and now awaiting bed available
Anticipated Discharge: 24 - 48 hours
Subjective/Interval History
-
Date of Service: May 25, 2024
Awake, alert, awaiting insurance aspects
Objective Data
-
Labs:
Laboratory Results
05/25/24
04:56
WBC 7.0
Hgb 11.0 L
Hct 33.6 L
Plt Count 206 D
Vital Signs:
Vital Signs
Temp Pulse Resp BP Pulse Ox
98.0 F 60 16 127/64 97
05/25/24 07:00 05/25/24 07:00 05/25/24 07:00 05/25/24 07:00 05/25/24 07:00
I&O
05/24/24 05/25/24 05/26/24
06:59 06:59 06:59
Intake Total 1150 / 1150 1140 / 1140
Output Total 525 / 525 575 / 575
Balance 625 / 625 565 / 565
Review of Systems
-
History Source: Patient and Coordinated Provider
Constitutional: Denies Fever
EENT: Reports No Symptoms Reported
Respiratory: Reports No Symptoms
Cardiac: Reports No Symptoms
Abdomen/GI: Reports No Symptoms
Genitourinary: Reports No Symptoms
Neuro: Reports No Symptoms
Physical Exam
-
General: No Apparent Distress
HEENT: Normocephalic and Atraumatic
Respiratory: Negative Wheezes
Cardiac: Regular Rhythm and S1/S2
GI: Soft
Skin: Other (RLE wound vac)
Neuro: AO x 3
Psych: Calm
--- NOTE | 2024-05-25 17:58 | W.PN.POD ---
Today's Communication
Today's Communication
Patient again seen today with his daughter, Melissa, marble and granite polisher at bedside. Wound vac removed.
Stringy fibrofatty tissue was again sharply, non excisionally debrided using sterile scalpel through the epidermis, dermis and into subcutaneous tissue, fascia.Minimal to moderate bleeding encountered. Bleeding treated with pressure. The patient
tolerated well with no discomfort.
Wound again irriagted with dakins solution, pat dry with sterile gauze and santyl ointment applied to wound bed and wound VAC dressing was reapplied
SNF placement pending at [facility] once bed available
If patient is here Saturday, I will return, remove the wound VAC with marble and granite polisher and re evaluate the wound.
If he is DC to Rehab 05/26/24, WOUND CARE to the right heel is : Cleanse with Dakins solution or Vashe, pat dry, apply nickel thick santyl ointment to wound bed and apply nss wet 4x4, ABD and wrap with kerlix, upon arrival at facility cleanse wound,
apply santyl ointment and re apply wound vac (black foam dressing bridged to the distal leg 125mmHg, continuous, low settings) and I will follow as outpatient.
NWB status RLE- OK for PWB to the right forefoot for transfers to chair and for BRP up to 25 feet
Assessment / Plan
-
1-DM2 with PAD- S/P successful Right lower extremity above-knee popliteal artery to peroneal artery
2-DM2 with DPN and LOPS
3-Stage 4/diabetic heel wound S/P full thickness repeated bedside debridements on wound vac therapy-tolerating well
Subjective
Chief Complaint
right heel- non healing stage 4, PAD
Subjective
Denies any new concerns, states he has been able to WB to the forefoot for transfer to chair and BRP with walker assist
Objective
Temp Pulse Resp BP Pulse Ox
98.0 F 60 16 127/64 97
05/25/24 07:00 05/25/24 07:00 05/25/24 07:00 05/25/24 07:00 05/25/24 07:00
05/25/24 04:56
05/25/24 04:56
Vital Signs and Lab results were reviewed.
Inspection: Cellulitis (none) and Ulcer (VAC right heel)
Review of Systems
Review of Systems
Review of Systems: No Fever, No Chills, No Headache, No Nausea, No Diarrhea and No Skin Rash
Physical Exam
Physical Exam
General: No Apparent Distress, Comfortable and Conversant
Musculoskeletal: No Clubbing and No Edema
Skin: Warm, Dry and Neurotrophic Ulcer (VAC removed- wound with increased in granulation tissue at periphery, however increased exposure of plantar fascia with some undermining now at the plantar lateral aspect of the right heel. No odor or
purulence, there has been no recurrence of necrotic tissue)
Neuro: AO x 3 and Protective Sensation Absent
Vascular: Capillary Refill Delayed
Dorsalis Pedis: Intact
Posterior Tibialis: Intact
[2024-05-25 21:39] LABS: Glucose - Point of Care 140 mg/dl (70-99)
[2024-05-25 22:35] VITALS: BP 138/64
[2024-05-26] MEDS: STERILE WATER FOR INJECTION 20 ML IV ×2 (05:00→12:43)
[2024-05-26] MEDS: MERREM 1000 MG IV ×2 (05:00→12:43)
[2024-05-26] MEDS: VANCOCIN 300 MG IV (05:07)
[2024-05-26] MEDS: VANCOCIN 300 ML IV (05:07)
[2024-05-26 07:00] VITALS: BP 135/66
[2024-05-26 07:10] LABS: Glucose - Point of Care 123 mg/dl (70-99)
--- NOTE | 2024-05-26 07:20 | PN.DE.MGMTRT ---
Insulin Management
- -
05/26/2024: Diabetes Management Follow up
Patient admitted 04/28 with Right heel wound, possible osteomyelitis. PMH: PVD, CAD, HTN, HLD, prior amputation of R 2nd & 3rd toe and left 3rd toe, s/p bypass of LLE, prior stent to RLE, subdural hematoma, Diabetic Neuropathy and T2DM.
Now POD #15 s/p RLE above-knee popliteal artery to peroneal artery using ipsilateral non-reversed great saphenous vein.
Diabetes management Consult requested on 05/10. Was taking Ozempic 1mg Q Mondays, Toujeo 20 units daily, Xigduo BID and Repaglinide 1mg TID. A1C 7.9%, Cr 0.6, eGFR >60.
Pt awake, A/O x3, OOB in chair, offers no complaints, able to discuss diabetes mgt.
Glucose remains stable and in range, premeal 90 to 220, (220 pre dinner, states he had food in the afternoon) fasting 123 this AM.
Will cont current regimen: Lantus 20 units in AM, Prandin 1mg TID, Farxiga 5mg BID, Metformin 1000mg BID and low corrective with meals.
Patient to transfer to [facility] when bed available.
Diabetes History
- -
Type of Diabetes: 2
Pre-Admission Diabetes Regimen
Lab Results
Hemoglobin A1c 7.9 % (4.0-5.6) H 04/29/24 06:54
Insulin Pump Settings
IP Diabetes Regimen
05/25/24 05/25/24 05/25/24
07:17 11:47 16:44
POC Glucose 141 H 177 H 220 H
05/25/24 05/26/24
21:37 07:09
POC Glucose 140 H 123 H
Meal type: Dinner
Meal type: Lunch
Meal type: Breakfast
Amount consumed: 100%
Amount consumed: 100%
Amount consumed: 100%
Patient Education
[2024-05-26] MEDS: VISBIOME 1 CAP PO (08:01)
[2024-05-26] MEDS: FLOMAX 0.4 MG PO (08:02)
[2024-05-26] MEDS: OCUVITE SOFTGEL 2 CAP PO (08:02)
[2024-05-26] MEDS: PRANDIN 1 MG PO ×2 (08:02→12:43)
[2024-05-26] MEDS: XARELTO 2.5 MG PO (08:02)
[2024-05-26] MEDS: THERAGRAN 1 TABLET PO (08:02)
[2024-05-26] MEDS: LOW STRENGTH ASPIRIN 81 MG PO (08:02)
[2024-05-26] MEDS: FARXIGA 5 MG PO (08:02)
[2024-05-26] MEDS: NOVOLOG FLEXPEN-LOW RESISTANCE SC ×2 (08:03→12:42)
[2024-05-26] MEDS: GLUCOPHAGE 1000 MG PO (08:03)
[2024-05-26] MEDS: LANTUS 0.2 UNITS SC (08:03)
[2024-05-26] MEDS: COLACE PO (08:04)
--- NOTE | 2024-05-26 08:05 | PHA.VAN.FU ---
Vancomycin Assessment / Plan
- Assessment
Renal Function: No New Labs Today
In the past 24 hrs, patient has been: Afebrile
Concomitant Antimicrobials: meropenem
- Dosing Plan
Continue: Vanc 1500mg Q24H infused over 2 hours
- Monitoring Plan
Level(s) appropriate: Recheck trough at minimum of weekly intervals, Repeat sooner for changes in renal function or clinical status
Next Level Due (Date): ~06/01
- Follow Up
Pharmacy will continue to follow.
Vancomycin Follow UP
- -
Patient Age: 79
Patient Sex: Male
Vancomycin Day #: 29
Indication: [facility]
Requesting Provider: Dr. tSiles / Chitra
Pertinent Antimicrobial Allergies:
NKDA
Height / Weight:
Height 5 ft 11 in
Actual Weight 88.054 kg
IBW in k.3
Adjusted BW in k.5
Pertinent Past Medical History: DM 2, PVD
- Vital Signs / Lab Results
Temp Pulse Resp BP Pulse Ox
97.5 F 66 22 138/64 99
05/25/24 22:35 05/25/24 22:35 05/25/24 22:35 05/25/24 22:35 05/26/24 01:11
Lab Results - Hematology
05/25/24
04:56
WBC 7.0
Lab Results - Chemistry
05/25/24
04:56
BUN 31 H
Creatinine 0.7
Estimated Creat Clear 94
Albumin 3.2 L
Therapeutic Drug Monitoring
Vancomycin Peak Cancelled 05/18/24 09:00
Vancomycin Trough 11.3 ug/ml (5-20) 05/25/24 04:56
[2024-05-26] MEDS: DAKIN'S SOLUTION 0.125% 1/4 STRENGTH 1 ML TOPICAL (08:10)
[2024-05-26] MEDS: SANTYL OINTMENT 1 APPLIC TOPICAL (08:11)
[2024-05-26] MEDS: DESENEX/MITRAZOL/ZEASORB 1 APPLIC TOPICAL (08:11)
--- NOTE | 2024-05-26 11:11 | W.PN.HOSP.TC ---
Today's Communication/Plan
-
dc to Acute Rehab at [facility]
Assessment / Plan
Assessment / Plan
Assessment:
Right heel ulcer, possible osteomyelitis
- MRI: Focal small soft tissue defect involving the superficial plantar soft tissues, inferior to the calcaneus. No evidence of collection to suggest abscess. No evidence for osteo myelitis. Intermediate T1-weighted signal within the subcutaneous
soft tissues off the plantar aspect of the posterior and inferior calcaneus, without significant enhancement postcontrast. This could represent soft tissue callus and/or relatively devascularize soft tissues. No evidence of collection. No evidence
for osteomyelitis of the calcaneus. Numerous prominent tortuous enhancing varicose veins within the medial soft tissues of the right lower leg and ankle.
- continue Vanco/Meropenem per ID x 6 weeks through 06/14. ESBL in culture. WBC stable
- PICC in place
- CBC, CMP, vancomycin trough weekly on Mondays moving forward
- s/p Right Distal Popliteal - Peroneal artery bypass (SVG) on 05/04. OP Vascular f/u. Vascular signed off.
- s/p excisional bedside debridement 05/06 by Podiatry, OP f/u
- continue wound care per Podiatry/Vascular
- wound VAC applied and being changed every other day
E coli/UTI
- already on treatment IV abx
Heart murmur
- d/w pt, he will f/w his PCP to do an echo. No chest pain, no sob, no signs of heart failure.
Hyponatremia, mild
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
- improved with slower infusion
LUE Vancomycin infiltrate
- on Hylenex protocol with VATS team
Nocturnal hypoxia
Resolved.
- desats nocturnally to 78%
- Patient is in need of oxygen at 2 liters/minute via nasal cannula continuously nocturnally due to pulse oximetry of 78% on room air at rest. Oxygen will help to improve hypoxemia. Patient is mobile within the home. DuoNeb therapy has been tried
and is ineffective in treating hypoxemia related symptoms. Oxygen is needed to improve symptoms.
- possibly has sleep apnea; sleep study outpatient recommended
Anemia due to acute blood loss from OR and hemodilution
- monitor. HGB stable at 10
History of osteomyelitis status post amputation of left third toe, right second/third toes
Peripheral vascular disease status post bypass of left lower extremity/stent of right lower extremity
Type 2 diabetes
- hypoglycemic from poor appetite post-op
- insulin sliding scale
- HGB A1c 7.9%
- continue Lantus 20 units
- continue Metformin/Repaglinide/Dapagliflozin
- COTTON WEIGHER OPERATOR consulting
Diabetic neuropathy
Acute urinary retention
- s/p Frey and now successfully voiding
Hyperkalemia, resolved
Hyperlipidemia
- continue statin
History of subdural hematoma
Essential hypertension
- continue lisinopril
DVT ppx: Heparin
Code: Full
Dispo: peer to peer review denied 05/18. As per CM note, external physician review has reversed denial. Just notified by Jim that bed is available and okay to dc
More than 30 minutes spent in discharge including
Final examination of the patient
Summarizing hospital stay
Instructions for continuing care to all relevant caregivers
Preparation of discharge records, prescriptions, and referral forms
Total time spent (in minutes): 45
Anticipated Discharge: Today
Subjective/Interval History
-
Date of Service: May 26, 2024
In good spirits
Objective Data
-
Vital Signs:
Vital Signs
Temp Pulse Resp BP Pulse Ox
97.6 F 61 16 135/66 98
05/26/24 07:00 05/26/24 07:00 05/26/24 07:00 05/26/24 07:00 05/26/24 09:59
I&O
05/25/24 05/26/24 05/27/24
06:59 06:59 06:59
Intake Total 1140 / 1140 1720 / 1720
Output Total 575 / 575 800 / 800
Balance 565 / 565 920 / 920
Review of Systems
-
History Source: Patient and Coordinated Provider
Constitutional: Denies Fever
EENT: Reports No Symptoms Reported
Respiratory: Reports No Symptoms
Cardiac: Reports No Symptoms
Abdomen/GI: Reports No Symptoms
Genitourinary: Reports No Symptoms
Neuro: Reports No Symptoms
Physical Exam
-
General: No Apparent Distress
HEENT: Normocephalic and Atraumatic
Respiratory: Negative Wheezes
Cardiac: Regular Rhythm, S1/S2 and Murmur (3/6sem)
GI: Soft
Skin: Other (RLE wound vac)
Neuro: AO x 3
Psych: Calm
--- NOTE | 2024-05-26 11:54 | CM ---
Addendum entered by Jim Chand 05/26/24 12:39:
NURSE TO NURSE REPORT # [phone]
FAX# [phone]
Original Note:
Patient has been medically cleared for discharge to [facility]. External independent physician reviewer approved acute rehab and dismissed BC denials. Reference # [id number]. Approved for 2 days 05/26/24 through to and including 05/27/24.
Next review date is 05/27/24. Concurrent reviews to be called to # . Macie at [place]'s admissions notified. Ambulance transport scheduled for 2:00 PM. Patient, daughter, team notified.
--- NOTE | 2024-05-26 12:23 | W.PN.UPDATE ---
Update Note
Progress Note Update
Remainder of derik removed from right groin site, all sites CDI, leg soft. Follow up in office as scheduled.
[2024-05-26 12:43] LABS: Glucose - Point of Care 127 mg/dl (70-99)
[2024-05-26 13:31] VITALS: BP 155/63
--- NOTE | 2024-05-26 14:25 | PTCARENOTE ---
Report called to Yumiko with [facility], informed to call back with any questions if need be.
--- NOTE | 2024-05-27 06:54 | W.DS.TRANS ---
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
-
Discharge Instructions:
Discharge Diagnosis/Procedures s/p 05/04/2024 right lower extremity above-the-
knee popliteal artery to peroneal artery and
he had a debridement of the right heel
with ADL and ambulatory dysfunction.
Diet Diabetic, Carb Controlled
Activity Do not bear weight R leg
Additional Activity as described below
Driving Restrictions No driving
Bathing Restrictions wound to remain dry
Blood Work CBC, CMP, Vanc trough weekly, pharm to adjust
Vanco dose, currently 1500 mg daily
Others Tests Your follow up arterial ultrasound is scheduled
on 06/26 at 2pm here at [facility]
Wound Care see below
Instructions:
Stand-Alone Forms:
Changes to Home Medications: Yes
Discharge Medications:
DC Medications w/original date entered in [facility]
repaglinide 1 mg tablet 1 mg PO MEALS Diabetes 08/15/21
rosuvastatin 20 mg tablet 20 mg PO QPM High cholesterol 08/15/21
coenzyme Q10 100 mg capsule (CoQ-10) 100 mg PO QPM Supplement ##0 10/20/21
Flush (0.9% Sodium Chloride) [Flush (Nss)] 10 ml IV PER PROTOCOL #100 mL 05/26/24
IV with Additives 150 mls/hr IV DAILY@0600 05/26/24
Insulin Glargine Lantus [Lantus] 20 units As Directed mls/hr SC DAILY 05/26/24
Lactobac/Bifidobac [Visbiome] 1 cap PO DAILY ##0 05/26/24
acetaminophen 325 mg tablet 650 mg (2 x 325 mg) PO Q4HPRN PRN mild pain or temp >/= 100.4F #0 tabs 05/26/24
aspirin 81 mg chewable tablet 81 mg PO DAILY #0 tabs 05/26/24
bisacodyl 10 mg rectal suppository 10 mg AR DAILYPRN PRN constipation-use 1st #0 ea 05/26/24
collagenase clostridium histo. 250 unit/gram topical ointment (Santyl) 1 applic topical DAILY #30 grams 05/26/24
dapagliflozin propanediol 5 mg tablet 5 mg PO BID AT 0800,1700 #0 tabs 05/26/24
dextrose 50 % in water (D50W) 12.5 g IV F24HEDT PRN hypoglycemia #0 mL 05/26/24
docusate sodium 100 mg capsule 100 mg PO BID #0 caps 05/26/24
glucagon HCl 1 mg/mL solution for injection 1 mg IM PRN PRN hypoglycemia #0 ea 05/26/24
insulin aspart U-100 100 unit/mL subcutaneous cartridge 3 unit (0.03 mL) SC AC #15 mL 05/26/24
lisinopril 20 mg tablet 20 mg PO DAILYPRN PRN SBP >140 #0 tabs 05/26/24
magnesium hydroxide 400 mg/5 mL oral suspension 30 ml PO QIDPRN PRN constipation-use second #0 mL 05/26/24
melatonin 5 mg tablet 5 mg PO HSPRN PRN insomnia #0 tabs 05/26/24
meropenem 1 gram intravenous solution 1,000 mg IV Q8H #0 ea 05/26/24
metformin 1,000 mg tablet 1,000 mg PO BID@0800,1700 #0 tabs 05/26/24
miconazole nitrate 2 % topical powder (Miconazorb AF) 1 applic topical BID Skin issues #85 grams 05/26/24
dkvpkhiu-ggu-ooohk4 250 mg-dha 90 mg-epa 160 kd-atkf-bjnf-zeax capsule (Ocuvite Adult 50 Plus) 2 cap PO DAILY #0 caps 05/26/24
multivitamin with folic acid 400 mcg tablet (Tab-A-Carlos) 1 tab PO DAILY #0 tabs 05/26/24
repaglinide 1 mg tablet 1 mg PO MEALS #0 tabs 05/26/24
rivaroxaban 2.5 mg tablet (Xarelto) 2.5 mg PO BID #0 tabs 05/26/24
simethicone 80 mg chewable tablet 80 mg PO QIDPRN PRN gas #0 tabs 05/26/24
sodium hypochlorite 0.125 % solution (Dakin's Solution) 1 applic topical DAILY Skin issues #473 mL 05/26/24
tamsulosin 0.4 mg capsule 0.4 mg PO DAILY #0 caps 05/26/24
water for injection, sterile 20 ml IV Q8H #0 mL 05/26/24
Vancomycin 1500 mg daily, dose to be adjusted based on trough
Home Medication Changes
Vancomycin and Meropenem have been added
Pending Results: No
== END 2024-05-26 14:34 | DRG 253 ==
LOC: 2 NORTH 20:30
PROVIDERS: Internal Medicine; Nurse Practitioner; Nurse Practitioner Acute Care; Registered Nurse; ADMITTING PHYSICIAN Hospitalist; ATTENDING PHYSICIAN Internal Medicine; CONSULT PHYSICIAN Internal Medicine Critical Care Medicine; CONSULT PHYSICIAN Physical Medicine & Rehabilitation; CONSULT PHYSICIAN Podiatrist Foot & Ankle Surgery; CONSULT PHYSICIAN Student in an Organized Health Care Education/Training Program; EMERGENCY PHYSICIAN Emergency Medicine; FAMILY PHYSICIAN Family Medicine; OTHER PHYSICIAN Surgery Vascular Surgery
PROC: 041 Lower Arteries, Bypass (ICD-10-PCS; 2024-05-01)
PROC: 06BP0ZZ Excision of Right Saphenous Vein, Open Approach (ICD-10-PCS; 2024-05-01)
PROC: 0JBQ0ZZ Excision of Right Foot Subcutaneous Tissue and Fascia, Open Approach (ICD-10-PCS; 2024-05-06)
DX: E11.52 Type 2 diabetes mellitus with diabetic peripheral angiopathy with gangrene (principal); D62 Acute posthemorrhagic anemia; L03.115 Cellulitis of right lower limb; M86.9 Osteomyelitis, unspecified; E87.1 Hypo-osmolality and hyponatremia; E11.621 Type 2 diabetes mellitus with foot ulcer; I70.202 Unspecified atherosclerosis of native arteries of extremities, left leg; G57.90 Unspecified mononeuropathy of unspecified lower limb; E11.41 Type 2 diabetes mellitus with diabetic mononeuropathy; E11.628 Type 2 diabetes mellitus with other skin complications; E11.65 Type 2 diabetes mellitus with hyperglycemia; E11.69 Type 2 diabetes mellitus with other specified complication; Z79.4 Long term (current) use of insulin; Z75.1 Person awaiting admission to adequate facility elsewhere; E87.5 Hyperkalemia; I10 Essential (primary) hypertension; Z87.891 Personal history of nicotine dependence
CPT/HCPCS: 35571; 36247; 71045; 73720; 75625; 75716; 76937; 80048; 80053; 80202; 82565; 82962; 83036; 84520; 85025; 85027; 85610; 85730; 86850; 86900; 86901; 86920; 87070; 87077; 87186; 87205; 93005; 93970; 94762; 96374; 97110; 97112; 97116; 97163; 97167; 97530; 97535; 99285; A9575; C1769; C1894; J1335; J2185; Q9967

== ENCOUNTER → 2024-06-26 13:52 | Outpatient (REF) | payer BC, SELFPAY | LOC: DHVS 13:52 | PROVIDERS: ATTENDING PHYSICIAN Surgery Vascular Surgery; FAMILY PHYSICIAN Family Medicine | DX: I73.9 Peripheral vascular disease, unspecified (principal) | CPT/HCPCS: 93925 ==

== ENCOUNTER 2024-12-04 09:59 | Day surgery (SDC) | payer BC, SELFPAY ==
[2024-12-04] VITALS (18 sets, daily range): BP systolic 113–145; BP diastolic 50–79; BMI 27.2
[2024-12-04 10:34] LABS: Hemoglobin 12.3 g/dL (13.0-18.0); Mean Corp Hgb Conc. 30.8 g/dL (33.0-37.0); Mean Corpuscular Hgb 24.2 pg (27.0-31.0); Mean Corpuscular Volume 78.6 fL (80.0-94.0); Mean Platelet Volume 9.3 fL (7.4-10.4); Platelet Count 261 10^3/uL (130-400); Red Blood Cell Count 5.09 10^6/uL (4.70-6.10); Red Cell Dist. Width 14.6 % (11.5-14.5); White Blood Cell Count 9.8 10^3/uL (4.8-10.8)
[2024-12-04] MEDS: NSS 500 IV (10:40)
[2024-12-04 10:47] LABS: INR 1.03; PT 13.8 Sec (11.4-14.6)
[2024-12-04 10:47] LABS: Glucose - Point of Care 137 mg/dl (70-99)
[2024-12-04 10:48] LABS: APTT 30.5 Sec (23.4-35.0); Blood Urea Nitrogen 25 mg/dl (9-20); Calcium 9.5 mg/dl (8.4-10.2); Carbon Dioxide 29 mmol/L (22-30); Chloride 100 mmol/L (98-107); Estimated Creatinine Clearance 88 ml/min; Glucose 142 mg/dl (70-99); Potassium 5.2 mmol/L (3.5-5.1); Sodium 137 mmol/L (135-145); eGFR > 60.00
--- NOTE | 2024-12-04 12:42 | W.IMMPOSTOP ---
Surgical Immed Post Op Note
-
Primary Surgeon: Tk
Assisting Surgeon: Fidelina
Pre-op Diagnosis: Non-healing chronic heel ulcer
Post-op Diagnosis: Non-healing chronic heel ulcer
Procedure Performed: Diagnostic R angiogram, R groin antegrade access
Anesthesia Type: Sedation/local
Specimen / Cultures: None
Estimated Blood Loss: 4 cc
Complications: None
Operative Findings: Open prior SFA-peroneal bypass, no stenosis. Patent runoff into foot. Diagnostic RLE angio with R groin access, antegrade.
[2024-12-04 13:00] LABS: Glucose - Point of Care 95 mg/dl (70-99)
[2024-12-04] MEDS: NSS 1000 IV (13:45)
--- NOTE | 2024-12-04 13:58 | OR.RPT ---
Operative Report
Operative Report
Date of Operation: 12/04/2024
Pre Op Diagnosis:
1. Nonhealing right plantar surface wound
2. Right superficial femoral artery to peroneal artery bypass
Post Op Diagnosis:
1. Nonhealing right plantar surface wound
2. Right superficial femoral artery to peroneal artery bypass
Procedure:
1.) Diagnostic right lower extremity arteriogram
2.) Ultrasound-guided percutaneous antegrade access to the right common femoral artery
Surgeon: Medardo Frey III, MD
Word Processor: Sami Kitchen MD PGY1
Anesthesia: Sedation with local
Fluoroscopy:
3.9 min
12 mGy
2.41 Gy.cm2
Complications: None
Estimated Blood Loss: Less than 10 cc
History and Indications for Procedure: 79-year-old male with previous superficial femoral artery to peroneal artery bypass. He has required several endovascular interventions for distal anastomotic stenosis. He has a nonhealing right plantar
surface wound. He was brought to the operating room for diagnostic arteriogram and possible endovascular intervention to ensure vascular optimization prior to any podiatric surgical intervention on the heel wound.
Procedure in Detail: Romario Dent was correctly identified and placed supine on the operating table. After adequate induction of anesthesia the bilateral groins were prepped and draped in the usual sterile fashion. A timeout was performed
with the nursing and anesthesia staff confirming the patient's identity as well as the nature and laterality of the procedure.
The right common femoral artery was identified under ultrasound guidance. The artery was patent. The superior and inferior aspects of the femoral head were identified with radiographic guidance and marked at the skin level. The proposed puncture
site was infiltrated with local anesthesia. Under ultrasound guidance we accessed the right common femoral artery in an antegrade direction with a micropuncture needle, selected the superficial femoral artery and upsized to a 5 Fr sheath over a
Bentson wire. A diagnostic right lower extremity arteriogram was then performed which demonstrated the following:
RIGHT LOWER EXTREMITY:
Superficial femoral artery: Patent with no stenosis identified
Popliteal artery: Chronically occluded
Bypass: The superficial femoral artery to peroneal artery bypass was widely patent with brisk flow. The proximal anastomosis to the distal superficial femoral artery was widely patent with no stenosis identified. The vein graft was widely patent.
The distal anastomosis to the peroneal artery was widely patent and no stenosis was identified.
Peroneal artery: Patent. No stenosis identified. Posterior branches of the ankle supplied the heel with a robust collateral network. A blush at the plantar surface heel wound was identified.
Anterior tibial artery: Occluded proximally. Reconstituted distally at the ankle via peroneal artery collaterals. Patent and continues across the foot deform the dorsal pedal artery. Pedal arch is intact with retrograde plantar flow identified
towards the heel.
Satisfied with this diagnostic result we concluded the procedure. The wire was removed. The sheath was removed and direct manual pressure was held over the puncture site until hemostasis was achieved.
The patient tolerated the procedure well and was taken to the recovery area in stable condition.
Attestation: I was present and responsible for the entire procedure.
Signed:
Medardo Frey III, MD
[facility]
[phone] (jind)
== END 2024-12-04 18:05 | disposition home or self-care (01) ==
LOC: CATH 09:59
PROVIDERS: ATTENDING PHYSICIAN Surgery Vascular Surgery; PRIMARYCARE PHYSICIAN Family Medicine
DX: I70.234 Atherosclerosis of native arteries of right leg with ulceration of heel and midfoot (principal); L97.419 Non-pressure chronic ulcer of right heel and midfoot with unspecified severity; Z79.899 Other long term (current) drug therapy; Z79.84 Long term (current) use of oral hypoglycemic drugs; Z79.01 Long term (current) use of anticoagulants; Z79.4 Long term (current) use of insulin; E11.40 Type 2 diabetes mellitus with diabetic neuropathy, unspecified
CPT/HCPCS: 36245; 75710; 80048; 82962; 85027; 85610; 85730; C1769; C1894; Q9967

== ENCOUNTER 2025-01-23 01:50 | Inpatient (IN) | payer BC, MEDICARE, SELFPAY ==
[2025-01-22 20:56] VITALS: BP 153/73
[2025-01-22 21:32] LABS: % Basophils 0.2 % (0-2); % Eosinophils 0.2 % (0-6); % Lymphocytes 9.8 % (20.5-51.1); % Monocytes 8.2 % (1.7-9.3); % Neutrophils 79.6 % (42.2-75.2); Absolute Basophils 0.1 10^3/uL (0-0.2); Absolute Eosinophils 0.1 10^3/uL (0-0.7); Absolute Immature Granulocytes 0.4 10^3/uL (0-0.05); Absolute Monocytes 1.7 10^3/uL (0.1-0.6); Absolute Neutrophils 16.2 10^3/uL (1.4-6.5); Hematocrit 30.9 % (39.0-52.0); Hemoglobin 9.9 g/dL (13.0-18.0); Mean Corpuscular Hgb 23.5 pg (27.0-31.0); Mean Corpuscular Volume 73.2 fL (80.0-94.0); Mean Platelet Volume 8.8 fL (7.4-10.4); Nucleated Red Blood Cells % 0 % (-); Platelet Count 490 10^3/uL (130-400); Red Blood Cell Count 4.22 10^6/uL (4.70-6.10); Red Cell Dist. Width 17.3 % (11.5-14.5); White Blood Cell Count 20.4 10^3/uL (4.8-10.8)
[2025-01-22 21:45] LABS: Lactic Acid 2.3 mmol/L (0.7-2.0)
[2025-01-22 21:49] LABS: ALT (SGPT) 104 U/L (0-50); AST (SGOT) 74 U/L (17-59); Albumin 3.3 g/dl (3.5-5.0); Alkaline Phosphatase 160 U/L (38-126); Blood Urea Nitrogen 32 mg/dl (9-20); Calcium 9.1 mg/dl (8.4-10.2); Carbon Dioxide 26 mmol/L (22-30); Chloride 96 mmol/L (98-107); Glucose 234 mg/dl (70-99); Potassium 5.2 mmol/L (3.5-5.1); Sodium 134 mmol/L (135-145); Total Bilirubin 0.8 mg/dl (0.2-1.3); Total Protein 7.2 g/dl (6.3-8.2); eGFR > 60.00
[2025-01-22 22:20] VITALS: BP 158/56; BMI 24.3
--- NOTE | 2025-01-22 22:36 | ED.GENMED ---
History of Present Illness
<Lissy Mai [employer] MACHINE - Last Filed: 01/23/25 02:01>
General
Chief Complaint: Abnormal Lab Value
Source: patient and family (daughter at bedside)
Exam Limitations: none
Time Seen by Provider: 01/22/25 22:23
Nursing documentation reviewed up to this point in time: agreed with
History of Present Illness
History of Present Illness:
79 yyo male from home w h/o IDDM, diabetic neuropathy, HLD, PAD, with chronic wound right heel, scheduled for right foot amputation with Dr. Frey in 3 days, presents for fever, nausea and vomiting, decreased urine output.
Had C diff one month ago.
Past History
<Lissy Mai [employer] MACHINE - Last Filed: 01/23/25 02:01>
Past History
ED Past Medical History: Hypercholesterolemia, IDDM, Other (Right foot cellulitis, osteomyelitis) and Other (History of subdural hematoma)
ED Past Surgical History: Appendectomy, Orthopedic (Surgery on the foot for removal of calcium deposit. Surgery for I&D of foot; right cuboid bone debridement, right first second and third toe amputations.) and Other (LLE bypass)
Social History
Tobacco: Non-smoker
Alcohol: Occasional
Personal:
Living: with family
Employment: Employed
Family History
Family History: Other (Noncontributory)
Review of Systems
<Lissy Mai, [employer]ACHINE - Last Filed: 01/23/25 02:01>
Review of Systems
Allergies reviewed?: Yes
Other source history: family
All Other Systems: ROS reviewed and negative except as documented in HPI and ROS
Constitutional: Reports fever
Respiratory: Denies trouble breathing
Cardiac: Denies chest pain
ABD/GI: Reports nausea, vomiting and anorexia; Denies abdominal pain or diarrhea
: Reports other (decreased urine output)
Musculoskeletal: Denies edema or back pain
Skin: Reports other (chronic wound right heel)
Phy Exam
<Lissy Mai, [employer]ACHINE - Last Filed: 01/23/25 02:01>
Physical Exam
Physical Exam:
GENERAL: No acute distress. A&Ox3. Mildly ill appearing
CONSTITUTIONAL: 100.7
EYES: clear, conjunctivae normal
ENMT: dry mucus membranes, Pharynx nl
RESPIRATORY: Regular respirations, nonlabored, lungs clear.
CARDIOVASCULAR: Regular rate and rhythm, no murmurs, no rubs.
GI: Soft, nontender, normal BS
MUSCULOSKELETAL: Dressing on right foot w manju wrap. Toes amputated, skin pink
SKIN: Warm, dry, pale
PSYCH: Normal mood and affect. Well kept, interactive and appropriate
NEUROLOGIC: Awake, alert and oriented. No focal neurological deficits
Sepsis
<Lissy Mai, [employer]ACHINE - Last Filed: 01/23/25 02:01>
Sepsis Screening
Sepsis Assessment: Sepsis Ruled Out
Sepsis Screening: Lactate >2mmol/L
Sepsis Screen
Sepsis Screen: Sepsis Ruled Out
Date: 01/23/25
Time: 02:00
Course
<Lissy Mai, [employer]ACHINE - Last Filed: 01/23/25 02:01>
Orders/Labs/Results
Orders:
Orders
01/22/25 20:59
Electrocardiogram (*1) Urgent
Reason for Study: Other
Other Reason for Exam: Possible Sepsis
EKG- Treatment ONCE
01/22/25 21:26
Complete Blood Count/With Diff Urgent
Comprehensive Metabolic Panel Urgent
Lactic Acid Stat
01/22/25 22:35
0.9% Sodium Chloride 1000 ml [Nss] 2,400 ml IV NOW STA
01/22/25 22:44
Piperacillin/Tazo 4.5 Gram [Zosyn] 4.5 gram in 100 ml IV NOW
01/22/25 22:53
Vancomycin [Vancocin] 2,000 mg 0.9% Sodium Chloride 500 ml [Nss] 500 ml IV NOW
01/22/25 22:56
Acetaminophen [Tylenol] 1,000 mg .ROUTE .STK-MED ONE
01/22/25 22:59
Acetaminophen [Tylenol] 1,000 mg PO NOW STA
01/22/25 23:15
Urinalysis Reflex To Culture Urgent
Date Specimen was Collected: 01/22/25
Time Specimen was Collected: 22:49
Urine Microscopic Reflex Cult Urgent
Blood Culture Q30M
CHAVA Source: Blood/Venous
Specimen Description:
Blood Culture Q30M
CHAVA Source: Blood/Venous
Specimen Description:
Urine Culture Urgent
CHAVA Source: U
Specimen Description:
Date Specimen was Collected: 01/22/25
Time Specimen was Collected: 22:49
01/23/25 00:00
CR Chest - 2 Views Urgent
Reason For Exam: fever, sepsis
01/23/25 00:53
Ketorolac [Toradol] 15 mg .ROUTE .STK-MED ONE
01/23/25 00:57
Morphine Sulfate 2 mg .ROUTE .STK-MED ONE
Morphine Sulfate 2 mg IV NOW STA
01/23/25 01:22
Admit/Transfer Patient As Directed
Co-Sign Provider:
Level of Care: Inpatient admission
Assign to:: Medical/Surgical
Physician / Group: Geoffrey
Diagnosis: Osteomyelitis R Foot, Sepsis
Reason for Hospitalization: Osteomyelitis R Foot, Sepsis
Expected length of stay greater than two midnights?: Yes
ELOS- Estimated Length of Stay in days: 4
I certify the patient meets the requirements for IP care: Yes
01/23/25 01:24
PRN Pain Medication Management As Directed
May give lesser potent ordered pain med per pt: Yes
preference::
Protocol:: Medication orders for pain may be administered in a
manner that supports deferring to patient preference
when the pt is:
- Requesting an ordered lesser potent pain medication.
Least to most potent pain medications are defined
as: acetaminophen < NSAID < tramadol < opioids
(morphine, oxycodone, hydromorphone).
- Requesting a lesser dose of the same medication IF
ORDERED.
- Requesting a less intrusive route of administration
if both routes are prescribed by the provider (PO <
IV).
01/23/25 01:26
Code Status As Directed
Resuscitation Status: Full Code
01/23/25 01:37
Lactate Level [Lactic Acid] Urgent
Abnormal Lab Results
01/22/25 01/22/25
21:26 23:15
WBC 20.4 H 10^3/uL
(4.8-10.8)
RBC 4.22 L 10^6/uL
(4.70-6.10)
Hgb 9.9 L g/dL
(13.0-18.0)
Hct 30.9 L %
(39.0-52.0)
MCV 73.2 L fL
(80.0-94.0)
MCH 23.5 L pg
(27.0-31.0)
MCHC 32.0 L g/dL
(33.0-37.0)
RDW 17.3 H %
(11.5-14.5)
Plt Count 490 H 10^3/uL
(130-400)
Abs Immat Gran (auto) 0.4 H 10^3/uL
(0-0.05)
Absolute Neuts (auto) 16.2 H 10^3/uL
(1.4-6.5)
Absolute Monos (auto) 1.7 H 10^3/uL
(0.1-0.6)
Immature Gran % 2.0 H %
(0-0.5)
Neutrophils % 79.6 H %
(42.2-75.2)
Lymphocytes % 9.8 L %
(20.5-51.1)
Sodium 134 L mmol/L
(135-145)
Potassium 5.2 H mmol/L
(3.5-5.1)
Chloride 96 L mmol/L
(98-107)
BUN 32 H mg/dl
(9-20)
Glucose 234 H mg/dl
(70-99)
Lactic Acid 2.3 H mmol/L
(0.7-2.0)
AST 74 H U/L
(17-59)
ALT 104 H U/L
(0-50)
Alkaline Phosphatase 160 H U/L
(38-126)
Albumin 3.3 L g/dl
(3.5-5.0)
Urine Ketones 1+ A
(Negative)
Ur Occult Blood Reflex 4+ A
(Negative)
Leukocyte Esterase Rfl 3+ A
(Negative)
Urine WBC (Reflex) >100 A /HPF
(0-5)
Urine Yeast Few A
(Negative)
Urine Glucose 4+ A
(Negative)
Urine Albumin (Reflex) 3+ A
(Neg - Trace)
01/22/25 21:26
01/22/25 21:26
Vital Signs
Initial and Last Documented VS:
Initial Vital Signs
Temp Pulse Resp BP Pulse Ox
98.3 F 101 16 153/73 99
01/22/25 20:56 01/22/25 20:56 01/22/25 20:56 01/22/25 20:56 01/22/25 20:56
Last Documented Vital Signs
Temp Pulse Resp BP Pulse Ox
98.7 F 88 21 128/68 94
01/23/25 01:10 01/23/25 00:30 01/23/25 00:30 01/23/25 00:12 01/22/25 23:15
<Ld Chavez MD - Last Filed: 01/22/25 23:16>
Orders/Labs/Results
Orders:
Orders
01/22/25 20:59
Electrocardiogram (*1) Urgent
Reason for Study: Other
Other Reason for Exam: Possible Sepsis
EKG- Treatment ONCE
01/22/25 21:26
Complete Blood Count/With Diff Urgent
Comprehensive Metabolic Panel Urgent
Lactic Acid Stat
01/22/25 22:35
0.9% Sodium Chloride 1000 ml [Nss] 2,400 ml IV NOW STA
01/22/25 22:44
Piperacillin/Tazo 4.5 Gram [Zosyn] 4.5 gram in 100 ml IV NOW
01/22/25 22:53
Vancomycin [Vancocin] 2,000 mg 0.9% Sodium Chloride 500 ml [Nss] 500 ml IV NOW
01/22/25 22:56
Acetaminophen [Tylenol] 1,000 mg .ROUTE .STK-MED ONE
01/22/25 22:59
Acetaminophen [Tylenol] 1,000 mg PO NOW STA
01/22/25 23:15
Urinalysis Reflex To Culture Urgent
Date Specimen was Collected: 01/22/25
Time Specimen was Collected: 22:49
Urine Microscopic Reflex Cult Urgent
Blood Culture Q30M
CHAVA Source: Blood/Venous
Specimen Description:
Blood Culture Q30M
CHAVA Source: Blood/Venous
Specimen Description:
Urine Culture Urgent
CHAVA Source: U
Specimen Description:
Date Specimen was Collected: 01/22/25
Time Specimen was Collected: 22:49
01/23/25 00:00
CR Chest - 2 Views Urgent
Reason For Exam: fever, sepsis
01/23/25 00:53
Ketorolac [Toradol] 15 mg .ROUTE .STK-MED ONE
01/23/25 00:57
Morphine Sulfate 2 mg .ROUTE .STK-MED ONE
Morphine Sulfate 2 mg IV NOW STA
01/23/25 01:22
Admit/Transfer Patient As Directed
Co-Sign Provider:
Level of Care: Inpatient admission
Assign to:: Medical/Surgical
Physician / Group: Geoffrey
Diagnosis: Osteomyelitis R Foot, Sepsis
Reason for Hospitalization: Osteomyelitis R Foot, Sepsis
Expected length of stay greater than two midnights?: Yes
ELOS- Estimated Length of Stay in days: 4
I certify the patient meets the requirements for IP care: Yes
01/23/25 01:24
PRN Pain Medication Management As Directed
May give lesser potent ordered pain med per pt: Yes
preference::
Protocol:: Medication orders for pain may be administered in a
manner that supports deferring to patient preference
when the pt is:
- Requesting an ordered lesser potent pain medication.
Least to most potent pain medications are defined
as: acetaminophen < NSAID < tramadol < opioids
(morphine, oxycodone, hydromorphone).
- Requesting a lesser dose of the same medication IF
ORDERED.
- Requesting a less intrusive route of administration
if both routes are prescribed by the provider (PO <
IV).
01/23/25 01:26
Code Status As Directed
Resuscitation Status: Full Code
01/23/25 01:37
Lactate Level [Lactic Acid] Urgent
Abnormal Lab Results
01/22/25 01/22/25
21:26 23:15
WBC 20.4 H 10^3/uL
(4.8-10.8)
RBC 4.22 L 10^6/uL
(4.70-6.10)
Hgb 9.9 L g/dL
(13.0-18.0)
Hct 30.9 L %
(39.0-52.0)
MCV 73.2 L fL
(80.0-94.0)
MCH 23.5 L pg
(27.0-31.0)
MCHC 32.0 L g/dL
(33.0-37.0)
RDW 17.3 H %
(11.5-14.5)
Plt Count 490 H 10^3/uL
(130-400)
Abs Immat Gran (auto) 0.4 H 10^3/uL
(0-0.05)
Absolute Neuts (auto) 16.2 H 10^3/uL
(1.4-6.5)
Absolute Monos (auto) 1.7 H 10^3/uL
(0.1-0.6)
Immature Gran % 2.0 H %
(0-0.5)
Neutrophils % 79.6 H %
(42.2-75.2)
Lymphocytes % 9.8 L %
(20.5-51.1)
Sodium 134 L mmol/L
(135-145)
Potassium 5.2 H mmol/L
(3.5-5.1)
Chloride 96 L mmol/L
(98-107)
BUN 32 H mg/dl
(9-20)
Glucose 234 H mg/dl
(70-99)
Lactic Acid 2.3 H mmol/L
(0.7-2.0)
AST 74 H U/L
(17-59)
ALT 104 H U/L
(0-50)
Alkaline Phosphatase 160 H U/L
(38-126)
Albumin 3.3 L g/dl
(3.5-5.0)
Urine Ketones 1+ A
(Negative)
Ur Occult Blood Reflex 4+ A
(Negative)
Leukocyte Esterase Rfl 3+ A
(Negative)
Urine WBC (Reflex) >100 A /HPF
(0-5)
Urine Yeast Few A
(Negative)
Urine Glucose 4+ A
(Negative)
Urine Albumin (Reflex) 3+ A
(Neg - Trace)
01/22/25 21:26
01/22/25 21:26
Vital Signs
Initial and Last Documented VS:
Initial Vital Signs
Temp Pulse Resp BP Pulse Ox
98.3 F 101 16 153/73 99
01/22/25 20:56 01/22/25 20:56 01/22/25 20:56 01/22/25 20:56 01/22/25 20:56
Last Documented Vital Signs
Temp Pulse Resp BP Pulse Ox
98.7 F 88 21 128/68 94
01/23/25 01:10 01/23/25 00:30 01/23/25 00:30 01/23/25 00:12 01/22/25 23:15
<Lissy Mai [employer]ACHINE - Last Filed: 01/23/25 02:01>
MDM/Problems Addressed
Differential Diagnosis Includes:
SIRS, Sepsis, UTI, chronic wound right heel
MDM/Problems Addressed:
79 yyo male from home w h/o IDDM, diabetic neuropathy, HLD, PAD, with chronic wound right heel, scheduled for right foot amputation with Dr. Frey in 3 days, presents for fever, nausea and vomiting, decreased urine output.
Had C diff one month ago.
Temp 100.7 p.o.
Mildly to moderately ill appearing
EKG: Sinus tachycardia
CBC: WBC 20.4, Hgb 9.9
CMP: Glucose 234, mild elevation in liver enzymes
Lactic acid 2.3
11:30 p.m.
U/A: >100 WBC + leukocyte esterase, neg Nitrites, urine culture pending
Plan: admit:
<Lissy Mai, [employer]ACHINE - Last Filed: 01/23/25 02:01>
*Critical Care Note
Total Time (30-74mins, 75-104mins- exclusive of procedures): Not Applicable
ED Attending Note
<Lissy Mai, [employer]ACHINE - Last Filed: 01/23/25 02:01>
-
Portions of this chart may have been created with voice recognition software.� Occasional wrong word or��sound alike� substitutions may have occurred due to the inherent limitations of voice recognition software.
<Ld Chavez MD - Last Filed: 01/22/25 23:16>
ED Attending Note
Patient seen and examined by attending physician: Yes
ED Attending Note:
I have seen and evaluated the patient with a [id number] encounter. I have spoken to the advance practicer provider and involved in the medical history, the physical exam, medical decision making.
Evaluation and management service: agree unless noted differently below.
Results interpretation: agree unless noted differently below.
Focused HPI: 79-year-old male presents with increased redness and drainage from right foot wound. Also had outpatient urinalysis and culture which was positive for UTI. Follows with Dr. Frey, scheduled for amputation of the right foot.
Physical exam: Febrile, tachycardic. Normotensive. Necrotic right heel wound�pictured below. Significant erythema and edema of the foot and streaking redness up the right lower leg.
Medical Decision Makin-year-old male presents with acute infection of chronic right heel wound; also had outpatient urinalysis concerning for UTI. Labs showed leukocytosis to 20.4, CMP showed hyperglycemia. Marginal transaminitis. Lactate
slightly elevated 2.3. Blood culture sent off. Urinalysis and culture sent. Cover with vancomycin and Zosyn. Admit for continued management.
Discharge Plan
Departure
Patient Disposition: Admit
Date of Disposition: 01/23/25
Time of Disposition: 00:13
Admit to: IMU
Presentation/result/management discussed w/ accepting MD/DO: Hospitalist
Condition: Serious
Discharge Problem:
Diabetes mellitus with neuropathy, Open wound of right foot, Acute UTI
Interventions
Interventions:
*Risk Screen - Suicide Last Done: 01/22/25 20:56
*General Assessment Last Done: 01/22/25 22:20
*Neglect/Abuse Screening Last Done: 01/22/25 20:56
*ED- Fall Risk Assessment Last Done: 01/22/25 22:20
*ED COVID-19 Vaccine History Last Done: 01/22/25 22:20
[2025-01-22] MEDS: TYLENOL 1000 MG PO (22:59)
[2025-01-22 23:00] VITALS: BP 139/67
[2025-01-22] MEDS: ZOSYN 100 IV (23:00)
[2025-01-22] MEDS: NSS 2400 ML IV (23:01)
--- NOTE | 2025-01-22 23:15 | EDRN ---
Patient urinated for sample, also asking for something to drink, got him some water.
[2025-01-22 23:20] LABS: Urine Albumin 3+ (Neg - Trace); Urine Bilirubin Negative (Negative); Urine Character Clear (Clear); Urine Color Yellow; Urine Glucose 4+ (Negative); Urine Ketone 1+ (Negative); Urine Leukocyte 3+ (Negative); Urine Nitrite Negative (Negative); Urine Occult Blood 4+ (Negative); Urine Urobilinogen Negative (Neg - 1+)
[2025-01-22 23:30] LABS: Urine Squamous Cell None seen /LPF (Few); Urine White Cell >100 /HPF (0-5)
[2025-01-22 23:31] LABS: Urine Yeast Few (Negative)
--- NOTE | 2025-01-22 23:40 | EDRN ---
When starting the vancomycin, patient reports that they have to run it slow or he gets Erna syndrome from it, however has had vancomycin several times, spoke with Dr. Chavez who is at bedside seeing patient and states we can run it slower, patient
aware to call if he has any issues with it.
[2025-01-22] MEDS: VANCOCIN 540 MG IV (23:41)
[2025-01-23] VITALS (19 sets, daily range): BP systolic 105–129; BP diastolic 45–68; PULSE 72; O2SAT 98
--- NOTE | 2025-01-23 00:30 | EDRN ---
Patient complaining of pain to the right heel, informed ZEKE clancy who is caring for patient
[2025-01-23] MEDS: MORPHINE SULFATE 2 MG IV (00:57)
--- NOTE | 2025-01-23 01:10 | EDRN ---
Dr. Hale at bedside working on admission
--- NOTE | 2025-01-23 01:32 | HPS.HSE ---
Family Physician
-
Family Physician: Dallin Valdez MD
Chief Complaint
-
Weakness, R Foot Pain, Urinary Symptoms, Abnormal Labs
History of Present Illness
Patient is a 79y M with PMH significant for ASCVD / PAD, DM-II and non-healing wound of the R heel who presents to ED complaining of multiple issues. Patient was last hospitalized here in April 2024 for R heel wound / osteomyelitis. He underwent
local debridement as well as R SFA - peroneal bypass during that admission. Patient was treated at that time with 6 weeks of IV abx (Vanco and meropenem) for ESBL E coli isolated from the wound. Patient had subsequent arteriogram done in November
of this year that showed patent vessels / bypass.
Patient has been under the care of [facility]. He was seen there on Saturday of this week. He states that a wound vac was removed at that time and he was sent for lab work.
He was also started on doxycycline at that time for a planned 20-day course.
Patient notes that he has felt progressively worse over the past few weeks - specifically noting generalized weakness / fatigue, increased pain in the R foot and difficulty 'getting around' as a result. He denies any fevers / chills. No N/V/D.
The labs he had done showed significant elevation in his WBC and patient presented to the ED here for further evaluation.
He also reports recent issues with urinary frequency, urgency and dysuria. He reports frequent, very small volume urination and urgency with occasional incontinence.
He states that he has known BPH.
Medical History
Past Medical History
Past Medical History: Reports Other
Additional Past Medical History:
ASCVD / PAD
DM-II
Osteomyelitis R Heel
Hypertension
Past Surgical History: Reports Other
Additional Past Surgical History:
Right Cuboid Debridement
Right 2nd / 3rd Toe Amputations
Right SFA - Peroneal Bypass
LLE Bypass
RLE Angioplasty / Stent
Appendectomy
Social History
Tobacco: Non-smoker
Alcohol: None
Drug: None
Family History
Family History: Not pertinent
Allergies / Home Medications
Allergies reflects when Allergies were last updated in [employer].
Home Medications with original date entered in [employer]
Allergy/Medication List:
Allergies
Allergy/AdvReac Type Severity Reaction Status Date / Time
No Known Allergies Allergy Verified 01/22/25 20:56
Home Medications
repaglinide 1 mg tablet 1 mg PO MEALS Diabetes 08/15/21
rosuvastatin 20 mg tablet 20 mg PO HS High cholesterol 08/15/21
coenzyme Q10 100 mg capsule (CoQ-10) 100 mg PO DAILY Supplement ##0 10/20/21
rivaroxaban 2.5 mg tablet (Xarelto) 2.5 mg PO BID #0 tabs 05/26/24
dapagliflozin propaned 5 mg-metformin ER 1,000 mg tablet, ext rel 24hr (Xigduo XR) 1 tab PO BID 12/01/24
insulin glargine U-300 conc 300 unit/mL (1.5 mL) subcutaneous pen (Toujeo SoloStar U-300 Insulin) 30 unit SC DAILY 12/01/24
vit C 250 mg-vit E 90 mg-zinc 40 mg-copper 1 fv-msrcgv-lvccol capsule (PreserVision AREDS-2) 1 tab PO BID 12/01/24
Lactobac no.2-Bifidobac no.1-S. thermo 112.5 billion cell capsule (Visbiome) 1 cap PO DAILY 01/22/25
Saccharomyces boulardii 250 mg capsule (Florastor) 500 mg PO DAILY 01/22/25
doxycycline hyclate 100 mg capsule 100 mg PO BID 01/22/25
therapeutic multivitamin 1 tab PO DAILY 01/22/25
vitamin K2 (MK-4) 100 mcg tablet 100 mcg PO DAILY 01/22/25
Review of Systems
-
History Source: Patient
A 12 point ROS was completed and negative except as noted: Yes
Constitutional: Reports Fatigue; Denies Fever or Chills
Respiratory: Denies Cough or Trouble Breathing
Cardiac: Denies Chest Pain or Palpitations
Abdomen/GI: Denies Abdominal Pain, Nausea, Vomiting or Diarrhea
: Reports Dysuria, Frequency, Incontinence and Urgency; Denies Flank Pain
Musculoskeletal: Reports Joint Pain, Joint Swelling and Edema
Neurological: Reports Weakness; Denies Dizzy or Headache
Psych: Denies Depression or Anxiety
Physical Exam
Vital Signs
Vital Signs
Temp Pulse Resp BP Pulse Ox
98.7 F 88 21 128/68 94
01/23/25 01:10 01/23/25 00:30 01/23/25 00:30 01/23/25 00:12 01/22/25 23:15
Physical Exam
General: Other (79y M in no acute distress.)
HEENT: Moist mucous membranes and PERRLA
Respiratory: Clear; No Wheezes, Rales or Rhonchi
Cardiac: S1/S2, Regular Rhythm and Murmur (II/ LONNIE)
GI: Soft, Non Distended and Normal Bowel Sounds
Genito-urinary: No costovertebral tender and Other (Mild suprapubic tenderness.)
Musculoskeletal: No Clubbing, No Cyanosis and Other (Edema and erythema of the R foot to the mid shelton. Large open wound / ulceration over the R heel without bleeding / purulent discharge.)
Neuro: AO x 3
Laboratory Results
-
01/22/25 21:26
01/22/25 21:
Laboratory Results
Lactic Acid 2.3 mmol/L (0.7-2.0) H 01/22/25 21:
Total Bilirubin 0.8 mg/dl (0.2-1.3) 01/22/25 21:
AST 74 U/L (17-59) H 01/22/25 21:
ALT 104 U/L (0-50) H 01/22/25 21:26
Alkaline Phosphatase 160 U/L (38-126) H 01/22/25 21:26
Impression/Plan
-
A/P: Patient is a 79y M with PMH significant for ASCVD / PAD, R heel wound and DM-II who presents to ED complaining of non-healing R foot wound, urinary symptoms and abnormal labs.
Diabetic Foot Infection
Non-Healing Right Heel Ulcer / Osteomyelitis
Sepsis secondary to the above
- Admit for further evaluation and treatment.
- Patient presents with fever, leukocytosis, tachycardia, tachypnea and exam findings c/w R heel wound / osteomyelitis.
- Resume IV abx with Vanco / meropenem given prior ESBL E coli isolate.
- Follow-up new / repeat cultures. Operative cultures from heel if local debridement is performed.
- ID and Vascular Surgery evaluations for additional recommendations.
- Follow fever curve and monitor for any new / worsening symptoms.
UTI
BPH with LUTS
- Patient also reports urinary symptoms and has abnormal UA.
- Consistent with overflow incontinence.
- Bladder scan protocol and straight cath / place Frey if necessary.
- Tamsulosin daily.
- Abx as noted above pending culture data.
ASCVD / PAD
- s/p multiple bilateral LE bypass surgeries / angio / stent / etc.
- Hold low dose Xarelto and use ASA for now pending any interventions / procedures.
- Continue statin.
DM-II
- Stable. Continue basal insulin.
- Follow glucose and cover with SSI if needed.
- Update A1C.
Acute on Chronic Microcytic Anemia
- Hgb today is 9.9 compared to recent baselines of 11-12 (and up to 14 within the past year).
- Check iron studies and replace if indicated.
- Heme test stools.
- Monitor for any overt signs of blood loss.
Abnormal LFTs
- Unclear etiology.
- Potentially due to sepsis / acute illness. Also potentially med effect from recently added doxycycline.
- Follow for changes.
DVT Prophylaxis: Subcut Heparin
Code Status: Full
[2025-01-23 02:25] LABS: Lactic Acid 1.1 mmol/L (0.7-2.0)
--- NOTE | 2025-01-23 04:08 | EDRN ---
Patient's Vancomycin completed with no issues, patient resting comfortably with no needs at this time, call garcia in reach, will continue to monitor
[2025-01-23] MEDS: STERILE WATER FOR INJECTION 20 ML IV (04:49)
[2025-01-23] MEDS: NSS 1000 IV ×2 (04:49→15:29)
[2025-01-23] MEDS: MERREM 1000 MG IV (04:49)
[2025-01-23 05:21] LABS: Hematocrit 23.1 % (39.0-52.0); Hemoglobin 7.4 g/dL (13.0-18.0); Mean Corpuscular Hgb 23.4 pg (27.0-31.0); Mean Corpuscular Volume 73.1 fL (80.0-94.0); Mean Platelet Volume 8.7 fL (7.4-10.4); Platelet Count 333 10^3/uL (130-400); Red Blood Cell Count 3.16 10^6/uL (4.70-6.10); Red Cell Dist. Width 17.5 % (11.5-14.5); White Blood Cell Count 21.4 10^3/uL (4.8-10.8)
[2025-01-23 05:39] LABS: Blood Urea Nitrogen 28 mg/dl (9-20); Calcium 7.7 mg/dl (8.4-10.2); Carbon Dioxide 20 mmol/L (22-30); Chloride 104 mmol/L (98-107); Estimated Creatinine Clearance 82 ml/min; Glucose 102 mg/dl (70-99); Iron 31 ug/dl (49-181); Potassium 4.7 mmol/L (3.5-5.1); Sodium 134 mmol/L (135-145); eGFR > 60.00
[2025-01-23 05:48] LABS: Percent Saturation 21 % (20-50); Total Iron Binding Capacity 145 ug/dl (261-462)
--- NOTE | 2025-01-23 05:52 | EDRN ---
Patients morning blood work came back there was a drop in hgb and hct, nataliya link np who is covering the floor
--- NOTE | 2025-01-23 07:05 | EDRN ---
Report to Titus Camacho
[2025-01-23 07:30] LABS: Glucose - Point of Care 168 mg/dl (70-99)
[2025-01-23] MEDS: HEPARIN 5000 UNITS SC ×3 (07:31→23:26)
[2025-01-23] MEDS: LOW STRENGTH ASPIRIN 81 MG PO (07:31)
[2025-01-23] MEDS: FLORASTOR 500 MG PO (07:32)
[2025-01-23] MEDS: FLOMAX PO ×2 (07:32→07:37)
[2025-01-23] MEDS: LANTUS 0.24 UNITS SC (07:32)
[2025-01-23] MEDS: NOVOLOG FLEXPEN-MODERATE RESISTANCE 1 UNITS SC ×2 (07:33→17:09)
--- NOTE | 2025-01-23 08:04 | PHA.VAN.IN ---
Assessment
- Assessment
Renal Function: Appears elevated from baseline
Concomitant Antimicrobials: meropenem
- Previous Dosing Experience
Previous Regimen: 1500mg q24h
Date of Regimen: 05/2024
Provided Trough of: 12.5
Patient's SCR is: Elevated compared to previous dosing experience
Patient's weight is: Decreased compared to previous dosing experience (79kg (now) vs 89.8kg (then))
AUC Dosing Plan
- Dosing Variables
Dosing Weight (kg): 79
Dosing CrCl (ml/min): 82
Vd coefficient (L/kg): 0.7
- Empiric Dosing
Initial / Loading Dose: 2000mg
Maintenance Regimen: 1500mg q24h
Estimated AUC (mcg*h/mL): 401
Estimated Peak (mcg*h/mL): 32.9
Estimated Trough (mcg/ml): 6.7
Estimated Half Life (H): 9.6
given previous regimen may not follow pop kinetics
- Monitoring
No levels ordered at this time: consider at steady state
Pharmacokinetics Vancomycin I
- -
Patient Age: 79
Patient Sex: Male
Vancomycin Day #: 1
Indication: [facility]
Requesting Provider: Dr. Hale
Pertinent Antimicrobial Allergies:
nkda
Height / Weight:
Height 5 ft 11 in
Actual Weight 79 kg
IBW in k.3
- Vital Signs / Lab Results
Temp Pulse Resp BP Pulse Ox
97.5 F 76 17 110/51 97
01/23/25 07:26 01/23/25 07:26 01/23/25 07:26 01/23/25 07:26 01/23/25 07:26
Lab Results - Hematology
01/22/25 01/23/25
21:26 04:50
WBC 20.4 H 21.4 H
Lab Results - Chemistry
01/22/25 01/23/25
21:26 04:51
BUN 32 H 28 H
Creatinine 0.8 0.8
Estimated Creat Clear 82
Albumin 3.3 L
01/22/25 01/23/25
21:26 01:37
Lactic Acid 2.3 H 1.1
Lab Results - Urine
01/22/25
23:15
Urine Nitrite (Reflex) Negative
Leukocyte Esterase Rfl 3+ A
Urine WBC (Reflex) >100 A
Ur Squamous Epith Cells None seen
Urine Bacteria (Reflex)
--- NOTE | 2025-01-23 08:10 | W.PN.HOSP.TC ---
Today's Communication/Plan
-
IV antibiotics
ID, Vascular and Podiatry consults
Assessment / Plan
Assessment / Plan
Mr. Romario Dent is a 79y M with PMH significant for ASCVD / PAD, R heel wound and DM-II who presents to ED complaining of non-healing R foot wound, urinary symptoms and abnormal labs.
Patient was last hospitalized here in April 2024 for R heel wound / osteomyelitis. He underwent local debridement as well as R SFA - peroneal bypass during that admission. Patient was treated at that time with 6 weeks of IV abx (Vanco and
meropenem) for ESBL E coli isolated from the wound. Patient had subsequent arteriogram done in November of this year that showed patent vessels / bypass.
Patient has been under the care of [facility]. He was seen there on Saturday of this week. He states that a wound vac was removed at that time and he was sent for lab work.
He was also started on doxycycline at that time for a planned 20-day course.
Diabetic Foot Infection
Non-Healing Right Heel Ulcer / Osteomyelitis
Sepsis secondary to the above
- Patient presents with fever, leukocytosis, tachycardia, tachypnea and exam findings c/w R heel wound / osteomyelitis.
- Resume IV abx with Vanco / meropenem given prior ESBL E coli isolate.
- Follow-up new / repeat cultures. Operative cultures from heel if local debridement is performed.
- ID and Vascular Surgery evaluations
- Podiatry consult
- Follow fever curve
UTI
BPH with LUTS
- Patient also reports urinary symptoms and has abnormal UA.
- Consistent with overflow incontinence.
- Bladder scan protocol and straight cath / place Frey if necessary.
- Tamsulosin daily.
- Abx as noted above pending culture data.
ASCVD / PAD
- s/p multiple bilateral LE bypass surgeries / angio / stent / etc.
- Hold low dose Xarelto and use ASA for now pending any interventions / procedures.
- Continue statin.
DM-II
- Stable. Continue basal insulin.
- Follow glucose and cover with SSI if needed.
- Update A1C.
Acute on Chronic Microcytic Anemia
- Hgb today is 9.9 compared to recent baselines of 11-12 (and up to 14 within the past year).
- Check iron studies and replace if indicated.
- Heme test stools.
- drop in Hg overnight s/p fludis - repeat at noon
Abnormal LFTs
- Unclear etiology.
- Potentially due to sepsis / acute illness. Also potentially med effect from recently added doxycycline.
- Follow for changes.
DVT Prophylaxis: Subcut Heparin
Code Status: Full
Anticipated Discharge: > 48 hours
Subjective/Interval History
-
Date of Service: January 23, 2025
feeling much better than when he came in
Objective Data
-
Labs:
Laboratory Results
01/22/25 01/23/25 01/23/25
21:26 04:50 04:51
WBC 20.4 H 21.4 H
Hgb 9.9 L 7.4 L D
Hct 30.9 L 23.1 L
Plt Count 490 H 333 D
Sodium 134 L 134 L
Potassium 5.2 H 4.7
Chloride 96 L 104
Carbon Dioxide 26 20 L
BUN 32 H 28 H
Creatinine 0.8 0.8
Glucose 234 H 102 H
Calcium 9.1 7.7 L
Total Bilirubin 0.8
AST 74 H
ALT 104 H
Alkaline Phosphatase 160 H
01/23/25
12:00
WBC
Hgb Pending
Hct Pending
Plt Count
Sodium
Potassium
Chloride
Carbon Dioxide
BUN
Creatinine
Glucose
Calcium
Total Bilirubin
AST
ALT
Alkaline Phosphatase
Vital Signs:
Vital Signs
Temp Pulse Resp BP Pulse Ox
97.5 F 76 17 110/51 97
01/23/25 07:26 01/23/25 07:26 01/23/25 07:26 01/23/25 07:26 01/23/25 07:26
I&O
01/22/25 01/23/25 01/24/25
06:59 06:59 06:59
Output Total 400 / 400
Balance -400 / -400
Review of Systems
-
History Source: Patient
All other systems: Reviewed and negative
Physical Exam
-
General: No Apparent Distress
HEENT: Normocephalic and Atraumatic
Respiratory: Negative Wheezes
Cardiac: Regular Rhythm, S1/S2 and Murmur (3/6sem)
GI: Soft and Nontender; Negative Nondistended
Musculoskeletal: No Edema
Skin: Other (RLE wound with surrounding swelling and erythema )
Neuro: AO x 3
Psych: Calm
Data Reviewed
-
Diagnostic Radiology: Report Reviewed by me
Labs: Labs Reviewed by me
[2025-01-23 09:03] LABS: Glycohemoglobin (HgbA1c) 8.9 % (4.0-5.6)
--- NOTE | 2025-01-23 09:21 | CON.ID ---
Consultation
-
Date/Time Consultation Requested: 01/23/2025 0353
Date/Time Consultation Performed: 01/23/2025 0837
Requesting Provider: Dr. Hale
Performing Provider: Dr. Frank
Reason for Consultation: Leukocytosis
Chief Complaint / Past History
Chief Complaint
heel wound
History of Present Illness
Romario Dent is a 79-year-old man with a significant past medical history of diabetes with neuropathy, PAD and a chronic right heel wound being evaluated at the request of Dr. Olguin in regards to leukocytosis. History is obtained from chart
review, along with patient interview.
The patient is known to the Infectious Diseases service, having been seen in April 2020 for a chronic right heel wound with osteomyelitis. Cultures at that time revealed the presence of ESBL E. coli and diphtheroids. The patient underwent a 6-week
course of vancomycin and meropenem. Thereafter, he was followed in [place] at a wound care center. He reports that he was admitted to [facility] in July for 2 weeks and received antibiotics. Following discharge he was on an additional
4-week course of IV antibiotics for a 'infection in his right foot'.
Since that time he has continued to follow with [facility], and has had a VAC in place. In late November 2024 he underwent a right lower extremity fem-peroneal bypass. He continued to have a wound VAC in place, but it was
removed last week. He most recently was on a 20-day course of doxycycline.
He presents to the emergency room yesterday secondary to reported fever, nausea and vomiting and urinary complaints of frequency, urgency and dysuria. He admits to feeling sluggish. He notes that recent outpatient labs showed a leukocytosis, and
his wound care doctors suggested he seek out further care.
At this point in time he reports feeling somewhat improved from presentation. He denies any current fevers although last night he had a fever of 100.7 degrees. He denies any current dysuria.
Past History
Additional Past Medical History:
DM
Diabetic neuropathy,
HLD
PAD
Subdural hematoma
Additional Past Surgical History:
Appendectomy
Right cuboid bone debridement
Right first second and third toe amputations
LLE arterial bypass
RLE fem-peroneal bypass
Allergy History:
No Known Allergies Allergy (Verified 01/22/25 20:56)
Medications Reviewed: Yes
Current Antibiotics:
Meropenem 1 g IV every 8 hours
Vancomycin (dosing per pharmacy)
Social History
Tobacco: Non-Smoker
Alcohol: None
Drug: None
Family History
Family History: Not Pertinent
Review of Systems
Vital Signs
Temp Pulse Resp BP Pulse Ox
97.5 F 76 17 110/51 97
01/23/25 07:26 01/23/25 07:26 01/23/25 07:26 01/23/25 07:26 01/23/25 07:26
Physical Exam
Physical Exam
Constitutional: No Acute Distress, Comfortable and Non-toxic
Eyes: No Conjunctival Hemorrhage and Sclera Anicteric
Oral: No Thrush and No Ulcers
Cardiovascular: Irregular Rate and S1/S2; Negative S3/S4
Pulmonary: Clear; Negative Wheezes, Rales or Rhonchi
Gastrointestinal: Soft, Non Tender and Non Distended
Genito-Urinary: Negative Frey
Extremities: Edema (RLE); Negative Cyanosis
Wound: Other (Lg right heel ulceration. Granulation tissue in base. Edges rounded. Minimal slough. No malodor. Positive exposed bone.)
Neurological: Awake and Alert
Psychological: Calm
Lab / Diagnostic Study Results
01/23/25 04:51
Abs Immat Gran (auto) 0.4 10^3/uL (0-0.05) H 01/22/25 21:26
Absolute Neuts (auto) 16.2 10^3/uL (1.4-6.5) H 01/22/25 21:26
Absolute Lymphs (auto) 2.0 10^3/uL (1.2-3.4) 01/22/25 21:
Absolute Monos (auto) 1.7 10^3/uL (0.1-0.6) H 01/22/25 21:
Absolute Basos (auto) 0.1 10^3/uL (0-0.2) 01/22/25 21:
Immature Gran % 2.0 % (0-0.5) H 01/22/25 21:
Neutrophils % 79.6 % (42.2-75.2) H 01/22/25 21:
Lymphocytes % 9.8 % (20.5-51.1) L 01/22/25 21:
Monocytes % 8.2 % (1.7-9.3) 01/22/25 21:
Eosinophils % 0.2 % (0-6) 01/22/25 21:
Basophils % 0.2 % (0-2) 01/22/25 21:
Lactic Acid 1.1 mmol/L (0.7-2.0) 01/23/25 01:37
Ur Squamous Epith Cells None seen /LPF (Few) 01/22/25 23:15
Microbiology Results
Micro:
01/22/25 23:15 Blood Culture - Pending
Blood/Venous
01/22/25 23:15 Blood Culture - Pending
Blood/Venous
01/22/25 23:15 Urine Culture - Pending
Urine
Imaging:
01/23/2025 CXR (2 view): No focal consolidation, pleural effusion or pneumothorax noted. Please see full dictation for additional detail.
Assessment / Plan
Suspected complicated urinary tract infection
Leukocytosis
Recent history of C. difficile
Chronic right heel wound
- hx osteomyelitis; hx 6 wk IV abx x 2 rounds
- followed by [facility]
DM
Diabetic neuropathy,
HLD
PAD
Subdural hematoma
Recommendations:
Discontinue further IV vancomycin.
Continue meropenem, although decrease dose to 500 mg IV every 6 hours
Await further urine cultures to guide further antimicrobial selection and potential de-escalation.
Will place on prophylactic oral vancomycin given recent history of C. difficile.
Local care to right heel wound. At present, the area does not appear overtly infected.
Check baseline x-ray of the right heel. Given palpated bone, suspect ongoing osteomyelitis, and given inability to cover area, ongoing antibiotics of unclear utility.
[2025-01-23] MEDS: MERREM 500 MG IV ×3 (10:18→21:32)
[2025-01-23] MEDS: STERILE WATER FOR INJECTION 10 ML IV ×3 (10:19→21:32)
[2025-01-23] MEDS: FIRVANQ 125 MG PO ×2 (10:19→21:00)
[2025-01-23 11:27] LABS: Glucose - Point of Care 243 mg/dl (70-99)
[2025-01-23] MEDS: NOVOLOG FLEXPEN-MODERATE RESISTANCE 3 UNITS SC (11:52)
[2025-01-23 12:12] LABS: Hematocrit 25.7 % (39.0-52.0)
--- NOTE | 2025-01-23 14:15 | W.CS.POD ---
Consult Summary - Podiatry
-
patient is a 79y M seen with chronic non healing Rt heel ulceration, He was treated with IV abx, revascularization in 11/2024 and follows up at [facility], had HBO treatments but has not healed, HE now admitted with Rt heel wound
infection on IV abx per ID, He is no acute distress, no SOB. PMH significant for ASCVD / PAD, R heel wound and DM-II
Patient was last hospitalized here in April 2024 for R heel wound / osteomyelitis. He underwent local debridement as well as R SFA - peroneal bypass during that admission. Patient was treated at that time with 6 weeks of IV abx (Vanco and
meropenem) for ESBL E coli isolated from the wound. Patient had subsequent arteriogram done in November of this year that showed patent vessels / bypass.
Patient has been under the care of [facility]. He was seen there on Saturday of this week.
Reviewed PMH, meds and allergies
Exam : Rt foot non palpable pedalpulses
Rt heel large ulceration with large deep tissue loss and palpable bone, scant purulence noted, periwound erythema noted, no foul odor, no necrotic tissue.
Rt foot with no signs of any crepitus felt
WB C count 21.4
Xray with destructive osteomyelitis heel.
A/P: Rt heel chronic non healing ulceration and osteomyelitis.
PAD
Type 2 diabetic with small vessel disease
Plan ; Cont with IV abx per ID
Discussed with patient that large tissue loss and exposed bone at heel would be difficult to close. He is aware of possibly loosing limb , since he tried many treatment options so far with not much improvement .
Will wait for vascular evaluation .
Will cont with local dry gauze dressings once daily
podiatry will follow
--- NOTE | 2025-01-23 14:23 | CM ---
real estate branch manager reviewed patient's chart and met with patient and patient lives with his spouse in a split level home, 5 steps to kitchen and 8 steps to bedroom, patient is independent with adl's and uses a walker with ambulation, per patient he has a
walker on each floor of his home. Patient states he is current with [facility] home care and would like them again at discharge, lining caser will make referral to [facility].
PCP: Dallin Valdez
Pharmacy: [facility] in [place]
[facility]
[phone]

Plan; Home with [facility] when stable.
--- NOTE | 2025-01-23 15:06 | CM ---
Reviewed the chart notes and spoke with the patient at the bedside. The patient resides with his spouse in a split level home. The patient has a rolling walker, wheelchair, shower chair, and shower rails. The patient is current with [facility] and has been to [facility]. The patient confirmed his pharmacy of choice is the [facility] [place]. continues to be available to patient/family and is monitoring medical plan for needs at discharge.
Plan: Discharge plans will depend on the patient's progress.
[2025-01-23 16:56] LABS: Glucose - Point of Care 182 mg/dl (70-99)
[2025-01-23] MEDS: CRESTOR 20 MG PO (21:04)
[2025-01-23 21:32] LABS: Glucose - Point of Care 193 mg/dl (70-99)
[2025-01-23] MEDS: DILAUDID 0.5 MG IV (22:05)
--- NOTE | 2025-01-24 01:12 | PTCARENOTE ---
Patient c/o frequent urination- 100-200ml/time. IVF infusing at 100ml/hr per MD order. Patient bladder scanned for 439ml; offered urinal and went for 100ml, scanned again for 435ml and straight cath for 400ml milky-straw urine. Patient states that
he stopped taken Tamsulosin about 1 month ago d/t frequent urination. This RN educated patient on the use of the medication and mechanism. Per MD report, patient was recently treated outpatient for UTI.
[2025-01-24] MEDS: NSS 1000 IV (01:27)
[2025-01-24] MEDS: MERREM 500 MG IV ×4 (03:40→21:11)
[2025-01-24] MEDS: STERILE WATER FOR INJECTION 10 ML IV ×4 (03:40→21:12)
[2025-01-24 07:45] VITALS: BP 122/73
[2025-01-24 07:51] LABS: Glucose - Point of Care 144 mg/dl (70-99)
[2025-01-24 07:51] LABS: % Basophils 0.4 % (0-2); % Eosinophils 1.2 % (0-6); % Immature Granulocytes 1.6 % (0-0.5); % Lymphocytes 11.7 % (20.5-51.1); % Monocytes 8.2 % (1.7-9.3); % Neutrophils 76.9 % (42.2-75.2); Absolute Eosinophils 0.1 10^3/uL (0-0.7); Absolute Immature Granulocytes 0.2 10^3/uL (0-0.05); Absolute Lymphocytes 1.1 10^3/uL (1.2-3.4); Absolute Monocytes 0.8 10^3/uL (0.1-0.6); Absolute Neutrophils 7.1 10^3/uL (1.4-6.5); Hematocrit 23.2 % (39.0-52.0); Hemoglobin 7.2 g/dL (13.0-18.0); Mean Corpuscular Hgb 23.2 pg (27.0-31.0); Mean Corpuscular Volume 74.8 fL (80.0-94.0); Mean Platelet Volume 9.7 fL (7.4-10.4); Nucleated Red Blood Cells % 0 % (-); Platelet Count 357 10^3/uL (130-400); Red Cell Dist. Width 17.8 % (11.5-14.5); White Blood Cell Count 9.2 10^3/uL (4.8-10.8)
[2025-01-24 08:07] LABS: Blood Urea Nitrogen 28 mg/dl (9-20); Calcium 7.6 mg/dl (8.4-10.2); Carbon Dioxide 24 mmol/L (22-30); Chloride 104 mmol/L (98-107); Estimated Creatinine Clearance 82 ml/min; Glucose 139 mg/dl (70-99); Magnesium 1.7 mg/dl (1.6-2.3); Potassium 4.6 mmol/L (3.5-5.1); Sodium 134 mmol/L (135-145); eGFR > 60.00
[2025-01-24] MEDS: NOVOLOG FLEXPEN-MODERATE RESISTANCE SC ×2 (08:52→12:56)
[2025-01-24] MEDS: FLORASTOR 500 MG PO (08:53)
[2025-01-24] MEDS: FIRVANQ 125 MG PO ×2 (08:53→20:09)
[2025-01-24] MEDS: HEPARIN 5000 UNITS SC ×3 (08:53→23:20)
[2025-01-24] MEDS: LOW STRENGTH ASPIRIN 81 MG PO (08:53)
[2025-01-24] MEDS: FLOMAX 0.4 MG PO (08:53)
--- NOTE | 2025-01-24 09:19 | W.PN.HOSP.TC ---
Addendum entered and electronically signed by Katharine Mancini MD 01/24/25 12:23:
*continue oral Vancomycin for C. Diff prophylaxis given history
Original Note:
Today's Communication/Plan
-
IV Vanc/Meropenem
TTE, follow up repeat blood cultures for MrSA Bacteremia
F/U further ID Recs
F/U Vascular Eval
transfuse 1 unit PRBC
Assessment / Plan
Assessment / Plan
Mr. Romario Dent is a 79y M with PMH significant for ASCVD / PAD, R heel wound and DM-II who presents to ED complaining of non-healing R foot wound, urinary symptoms and abnormal labs.
Patient was last hospitalized here in April 2024 for R heel wound / osteomyelitis. He underwent local debridement as well as R SFA - peroneal bypass during that admission. Patient was treated at that time with 6 weeks of IV abx (Vanco and
meropenem) for ESBL E coli isolated from the wound. Patient had subsequent arteriogram done in November of this year that showed patent vessels / bypass.
Patient has been under the care of [facility]. He was seen there on Saturday of this week. He states that a wound vac was removed at that time and he was sent for lab work.
He was also started on doxycycline at that time for a planned 20-day course.
Diabetic Foot Infection
Non-Healing Right Heel Ulcer / Osteomyelitis
MRSA Bacteremia
Sepsis secondary to the above
- Patient presents with fever, leukocytosis, tachycardia, tachypnea
- IV Meropenem based on prior cultures
- resume IV Vancomycin today
- follow blood cultures
- TTE
- appreciate ID consult
- appreciate Podiatry consult
- possible need for amputation has been discussed, follow up Vascular evaluation
UTI
BPH with LUTS
- Patient also reports urinary symptoms and has abnormal UA.
- bladder scan and straight cath PRN
- awaiting urine culture
ASCVD / PAD
- s/p multiple bilateral LE bypass surgeries / angio / stent
- Hold low dose Xarelto and use ASA for now pending any interventions / procedures.
- Continue statin.
DM-II
- Stable. Continue basal insulin.
- Follow glucose and cover with SSI if needed.
- Update A1C.
Acute on Chronic Microcytic Anemia
- drop in Hg; iron studies show anemia of chronic disease
- *transfuse 1 unit PRBC today given Hg 7.2 and hx ASCVD, possible need for upcoming surgery
Abnormal LFTs in setting of sepsis
-add on liver enzymes today
DVT Prophylaxis: Subcut Heparin
Code Status: Full
51 minutes spent on patient care
Anticipated Discharge: > 48 hours
Subjective/Interval History
-
Date of Service: January 24, 2025
feeling okay
eating and drinking OK
afebrile overnight
Objective Data
-
Labs:
Laboratory Results
01/24/25
06:46
WBC 9.2
Hgb 7.2 L
Hct 23.2 L
Plt Count 357
Sodium 134 L
Potassium 4.6
Chloride 104
Carbon Dioxide 24
BUN 28 H
Creatinine 0.8
Glucose 139 H
Calcium 7.6 L
Vital Signs:
Vital Signs
Temp Pulse Resp BP Pulse Ox
97.6 F 48 18 122/73 98
01/24/25 07:45 01/24/25 07:45 01/24/25 07:45 01/24/25 07:45 01/24/25 07:45
I&O
01/23/25 01/24/25 01/25/25
06:59 06:59 06:59
Intake Total 2160 / 2160
Output Total 400 / 400 1150 / 1150
Balance -400 / -400 1010 / 1010
Review of Systems
-
History Source: Patient
All other systems: Reviewed and negative
Physical Exam
-
General: No Apparent Distress
HEENT: PERRLA
Respiratory: Clear to Auscultation; Negative Wheezes
Cardiac: Regular Rhythm, S1/S2 and Murmur
GI: Soft and Nontender
Musculoskeletal: No Edema
Skin: Other (RLE wound with surrounding swelling and erythema )
Neuro: AO x 3
Psych: Calm
Data Reviewed
-
Diagnostic Radiology: Report Reviewed by me
Labs: Labs Reviewed by me
--- NOTE | 2025-01-24 09:53 | PHA.VAN.FU ---
Vancomycin Assessment / Plan
- Assessment
Renal Function: Stable (0.8)
WBC's are: WNL (9.2)
In the past 24 hrs, patient has been: Afebrile
Concomitant Antimicrobials: Meropenem
- Dosing Plan
Adjust Regimen to: Vanco 1000mg Q12H Starting 01/25/25 0600
New Regimen Predicts: AUC (517), Peak (31.1), Trough (14)
Patient received 2G loading dose 01/22/25 2341, d/c'd on 01/23/25, MRSA detected in blood cx, restarting vanco now 01/24/25. Will give 1500mg x1 and start rodney 1000mg Q12H 01/25/25 0600.
- Monitoring Plan
No level(s) ordered at this time: Consider in the next few days
- Follow Up
Pharmacy will continue to follow.
Vancomycin Follow UP
- -
Patient Age: 79
Patient Sex: Male
Vancomycin Day #: 2
Indication: [facility]
Requesting Provider: Dr. Hale
Pertinent Antimicrobial Allergies:
nkda
Height / Weight:
Height 5 ft 11 in
Actual Weight 79 kg
IBW in k.3
- Vital Signs / Lab Results
Temp Pulse Resp BP Pulse Ox
97.6 F 48 18 122/73 98
01/24/25 07:45 01/24/25 07:45 01/24/25 07:45 01/24/25 07:45 01/24/25 07:45
Lab Results - Hematology
01/22/25 01/23/25 01/24/25
21:26 04:50 06:46
WBC 20.4 H 21.4 H 9.2
Lab Results - Chemistry
01/22/25 01/23/25 01/24/25
21:26 04:51 06:46
BUN 32 H 28 H 28 H
Creatinine 0.8 0.8 0.8
Estimated Creat Clear 82 82
Albumin 3.3 L
01/22/25 01/23/25
21:26 01:37
Lactic Acid 2.3 H 1.1
Microbiology Results
01/22/25 23:15 Blood Culture - Preliminary
Blood/Venous Staph aureus MRSA
Gram Stain - Preliminary
01/22/25 23:15 Blood Culture - Preliminary
Blood/Venous Positive culture in progress
Gram Stain - Preliminary
[2025-01-24] MEDS: LANTUS 0.24 UNITS SC (10:05)
--- NOTE | 2025-01-24 10:08 | W.PN.VS ---
Today's Communication / Plan
-
plan for bka this week
Assessment/Plan
-
chronic non healing wound of right foot
patient is now ready to have bka as he does not feel this is getting better
would like dr. farah to perfomr
discussed we would look for spot on schedule
Subjective Data
-
Date of Service: January 24, 2025
Patient feeling better this am
Objective Data
-
Vital Signs
Temp Pulse Resp BP Pulse Ox
97.6 F 48 18 122/73 98
01/24/25 07:45 01/24/25 07:45 01/24/25 07:45 01/24/25 07:45 01/24/25 07:45
Intake and Output
01/23/25 01/24/25 01/25/25
06:59 06:59 06:59
Intake Total 2160 / 2160
Output Total 400 / 400 1150 / 1150
Balance -400 / -400 1010 / 1010
Intake:
Oral fluids 960 / 960
IV fluids (Total) 1200 / 1200
Output:
Urine, Voided 400 / 400 750 / 750
Straight cath output 400 / 400
Other:
Number of approximated MODERATE 2
amounts of urine
Lab Results
01/24/25 06:46
01/24/25 06:46
Calcium 7.6 mg/dl (8.4-10.2) L 01/24/25 06:46
Magnesium 1.7 mg/dl (1.6-2.3) 01/24/25 06:46
Total Bilirubin 0.8 mg/dl (0.2-1.3) 01/22/25 21:26
AST 74 U/L (17-59) H 01/22/25 21:26
ALT 104 U/L (0-50) H 01/22/25 21:
Alkaline Phosphatase 160 U/L (38-126) H 01/22/25 21:
Total Protein 7.2 g/dl (6.3-8.2) 01/22/25:
Albumin 3.3 g/dl (3.5-5.0) L 01/22/25:
Physical Exam
-
r heal wound
no erythema or cellulitis of leg
[2025-01-24 10:09] LABS: ALT (SGPT) 63 U/L (0-50); AST (SGOT) 25 U/L (17-59); Alkaline Phosphatase 105 U/L (38-126); Total Bilirubin 0.4 mg/dl (0.2-1.3)
--- NOTE | 2025-01-24 10:09 | W.PN.VS ---
Assessment/Plan
-
chronic non healing wound of right foot
patient is now ready to have bka as he does not feel this is getting better
would like dr. farah to perfomr
discussed we would look for spot on schedule
Subjective Data
-
Date of Service: January 24, 2025
Objective Data
-
Vital Signs
Temp Pulse Resp BP Pulse Ox
97.6 F 48 18 122/73 98
01/24/25 07:45 01/24/25 07:45 01/24/25 07:45 01/24/25 07:45 01/24/25 07:45
Intake and Output
01/23/25 01/24/25 01/25/25
06:59 06:59 06:59
Intake Total 2160 / 2160
Output Total 400 / 400 1150 / 1150
Balance -400 / -400 1010 / 1010
Intake:
Oral fluids 960 / 960
IV fluids (Total) 1200 / 1200
Output:
Urine, Voided 400 / 400 750 / 750
Straight cath output 400 / 400
Other:
Number of approximated MODERATE 2
amounts of urine
Lab Results
01/24/25 06:46
01/24/25 06:46
Calcium 7.6 mg/dl (8.4-10.2) L 01/24/25 06:46
Magnesium 1.7 mg/dl (1.6-2.3) 01/24/25 06:46
Total Bilirubin 0.4 mg/dl (0.2-1.3) 01/24/25 06:46
AST 25 U/L (17-59) 01/24/25 06:46
ALT 63 U/L (0-50) H 01/24/25 06:46
Alkaline Phosphatase 105 U/L (38-126) 01/24/25 06:46
Total Protein 7.2 g/dl (6.3-8.2) 01/22/25 21:26
Albumin 3.3 g/dl (3.5-5.0) L 01/22/25 21:26
[2025-01-24] MEDS: VANCOCIN 530 MG IV (10:12)
[2025-01-24] MEDS: VISBIOME 2 CAP PO (11:07)
--- NOTE | 2025-01-24 12:03 | W.PN.ID1 ---
Date of Service
Date of Service: January 24, 2025
Today's Communication
Continue antibiotics.
Assessment / Plan
Suspected complicated urinary tract infection
Leukocytosis
Recent history of C. difficile
Chronic right heel wound
- hx osteomyelitis; hx 6 wk IV abx x 2 rounds
- followed by [facility]
MRSA bacteremia
- urine vs (R) foot source
DM
Diabetic neuropathy,
HLD
PAD
Subdural hematoma
Recommendations:
Leukocytosis improved, although now admission blood cultures are positive for MRSA.
Vancomycin reinitiated.
Continue meropenem.
Await urine culture.
Repeat blood cultures today.
Echocardiogram ordered by Hospitalist service
Continue prophylactic oral vancomycin given recent history of C. difficile.
Local care to right heel wound. Chart reviewed, patient tentatively for right BKA later this week.
����������������������������������������������������������
Chief Complaint
-: Bacteremia
Subjective / Review of Systems
Review of Systems: No Fever and No Chills
Vital Signs / Physical Exam
Vital Signs
Vital Signs
Temp Pulse Resp BP Pulse Ox
97.6 F 48 18 122/73 98
01/24/25 07:45 01/24/25 07:45 01/24/25 07:45 01/24/25 07:45 01/24/25 07:45
Physical Exam
Constitutional: No Acute Distress, Comfortable, Chronically Ill and Non-toxic
Eyes: No Conjunctival Hemorrhage
Cardiovascular: S1/S2; Negative S3/S4 or Murmur
Pulmonary: Clear; Negative Wheezes or Rales
Gastrointestinal: Soft, Non Tender and Non Distended
Extremities: Negative Splinter Hemorrhage or Janeway Lesions
Wound: Other (Lg right heel ulceration. Granulation tissue in base. Edges rounded. Minimal slough. No malodor. Positive exposed bone.)
Neurological: Awake and Alert
Objective Data
Lab Data
Lab Results
01/24/25 06:46
01/24/25 06:46
Estimated Creat Clear 82 ml/min 01/24/25 06:46
Lactic Acid 1.1 mmol/L (0.7-2.0) 01/23/25 01:37
Total Bilirubin 0.4 mg/dl (0.2-1.3) 01/24/25 06:46
AST 25 U/L (17-59) 01/24/25 06:46
ALT 63 U/L (0-50) H 01/24/25 06:46
Alkaline Phosphatase 105 U/L (38-126) 01/24/25 06:46
Most recent labs reviewed.
Micro Results:
01/24/25 11:39 Blood Culture - Pending
Blood/Venous
01/22/25 23:15 Urine Culture - Preliminary
Urine Sparse growth, too young to be identified. Further results
to follow.
01/22/25 23:15 Blood Culture - Preliminary
Blood/Venous Staph aureus MRSA (by PCR methodology)
Gram Stain - Preliminary
01/22/25 23:15 Blood Culture - Preliminary
Blood/Venous Positive culture in progress
Gram Stain - Preliminary
Imaging:
01/23/2025 CXR (2 view): No focal consolidation, pleural effusion or pneumothorax noted. Please see full dictation for additional detail.
Care Review
Plan reviewed with: Physician (Hospitalist)
[2025-01-24 12:33] VITALS: BP 96/57
[2025-01-24 12:49] VITALS: BP 118/47
[2025-01-24 12:54] LABS: Glucose - Point of Care 175 mg/dl (70-99)
[2025-01-24 15:30] VITALS: BP 148/64
[2025-01-24 15:51] VITALS: BP 119/50
[2025-01-24 16:51] LABS: Glucose - Point of Care 193 mg/dl (70-99)
[2025-01-24] MEDS: NOVOLOG FLEXPEN-MODERATE RESISTANCE 1 UNITS SC (17:21)
[2025-01-24] MEDS: CRESTOR 20 MG PO (21:11)
[2025-01-24 21:14] LABS: Glucose - Point of Care 202 mg/dl (70-99)
[2025-01-24 23:35] VITALS: BP 134/61
[2025-01-25] MEDS: STERILE WATER FOR INJECTION 10 ML IV ×4 (03:04→22:23)
[2025-01-25] MEDS: MERREM 500 MG IV ×4 (03:04→22:23)
[2025-01-25] MEDS: VANCOCIN 200 IV (05:10)
[2025-01-25 07:25] VITALS: BP 129/55
[2025-01-25 07:37] LABS: Hematocrit 27.8 % (39.0-52.0); Hemoglobin 8.7 g/dL (13.0-18.0); Mean Corp Hgb Conc. 31.3 g/dL (33.0-37.0); Mean Corpuscular Hgb 23.8 pg (27.0-31.0); Mean Corpuscular Volume 76.2 fL (80.0-94.0); Mean Platelet Volume 9.4 fL (7.4-10.4); Platelet Count 426 10^3/uL (130-400); Red Blood Cell Count 3.65 10^6/uL (4.70-6.10); Red Cell Dist. Width 18.6 % (11.5-14.5); White Blood Cell Count 10.8 10^3/uL (4.8-10.8)
[2025-01-25 07:59] LABS: Blood Urea Nitrogen 30 mg/dl (9-20); Calcium 8.2 mg/dl (8.4-10.2); Carbon Dioxide 26 mmol/L (22-30); Chloride 101 mmol/L (98-107); Estimated Creatinine Clearance 94 ml/min; Glucose 159 mg/dl (70-99); Magnesium 1.9 mg/dl (1.6-2.3); Potassium 5.4 mmol/L (3.5-5.1); Sodium 134 mmol/L (135-145); eGFR > 60.00
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
[2025-01-25 08:35] LABS: Glucose - Point of Care 153 mg/dl (70-99)
[2025-01-25] MEDS: NOVOLOG FLEXPEN-MODERATE RESISTANCE 1 UNITS SC ×2 (08:39→16:52)
[2025-01-25] MEDS: LANTUS 0.24 UNITS SC (08:39)
[2025-01-25] MEDS: FLORASTOR 500 MG PO (08:40)
[2025-01-25] MEDS: FIRVANQ 125 MG PO ×2 (08:40→19:59)
[2025-01-25] MEDS: LOW STRENGTH ASPIRIN 81 MG PO (08:40)
[2025-01-25] MEDS: HEPARIN 5000 UNITS SC ×3 (08:40→23:00)
[2025-01-25] MEDS: VISBIOME 2 CAP PO (08:41)
[2025-01-25] MEDS: FLOMAX 0.4 MG PO (08:41)
--- NOTE | 2025-01-25 09:02 | PHA.VAN.FU ---
Vancomycin Assessment / Plan
- Assessment
Renal Function: Stable
WBC's are: WNL
In the past 24 hrs, patient has been: Afebrile
Concomitant Antimicrobials: meropenem, vancomycin PO
- Dosing Plan
Adjust Regimen to: Vanc 1500mg Q24H
Dosing Comments: received 1000mg 01/25 05:10 - give additional 500mg x1 today
Based on prior dosing experience, patient does not follow population PK and estimated CrCl is not predictive of vanc clearance
Will adjust patient back to Vanc 1500mg Q24H, which patient had stable levels on during prior admission
- Monitoring Plan
No level(s) ordered at this time: consider levels in next few days
- Follow Up
Pharmacy will continue to follow.
Vancomycin Follow UP
- -
Patient Age: 79
Patient Sex: Male
Vancomycin Day #: 3
Indication: Bone And Joint
Requesting Provider: Dr. Hale / Zac
Pertinent Antimicrobial Allergies:
NKDA
Height / Weight:
Height 5 ft 11 in
Actual Weight 79 kg
IBW in k.3
- Vital Signs / Lab Results
Temp Pulse Resp BP Pulse Ox
97.5 F 41 16 129/55 99
01/25/25 07:25 01/25/25 07:25 01/25/25 07:25 01/25/25 07:25 01/25/25 07:25
Lab Results - Hematology
01/22/25 01/23/25 01/24/25
21:26 04:50 06:46
WBC 20.4 H 21.4 H 9.2
01/25/25
07:05
WBC 10.8
Lab Results - Chemistry
01/22/25 01/23/25 01/24/25
21:26 04:51 06:46
BUN 32 H 28 H 28 H
Creatinine 0.8 0.8 0.8
Estimated Creat Clear 82 82
Albumin 3.3 L
01/25/25
07:05
BUN 30 H
Creatinine 0.7
Estimated Creat Clear 94
Albumin
01/22/25 01/23/25
21:26 01:37
Lactic Acid 2.3 H 1.1
Microbiology Results
01/22/25 23:15 Urine Culture - Preliminary
Urine Sparse growth, too young to be identified. Further results
to follow.
01/22/25 23:15 Blood Culture - Preliminary
Blood/Venous Staph aureus MRSA
Gram Stain - Preliminary
01/22/25 23:15 Blood Culture - Preliminary
Blood/Venous Positive culture in progress
Gram Stain - Preliminary
[2025-01-25] MEDS: MIRALAX 17 GRAMS PO (11:48)
[2025-01-25] MEDS: SENOKOT 17.2 MG PO ×2 (11:48→19:59)
[2025-01-25] MEDS: VANCOCIN HCL 500 MG 100 IV (11:49)
[2025-01-25 12:01] LABS: Glucose - Point of Care 204 mg/dl (70-99)
[2025-01-25] MEDS: NOVOLOG FLEXPEN-MODERATE RESISTANCE 3 UNITS SC (12:11)
--- NOTE | 2025-01-25 13:22 | WOUNDNOTE ---
KIRILL RN NOTE: Confirmed with vascular DUPLIGRAPH OPERATOR Macie Gomez and Dr. Iglesias can cancel wound consult, patient scheduled for amputation this week.
--- NOTE | 2025-01-25 13:58 | W.PN.HOSP.TC ---
Today's Communication/Plan
-
Awaiting amputation, timing per vascular.
Assessment / Plan
Assessment / Plan
79-year-old man with nonhealing right foot wound urinary symptoms. He was hospitalized in April 2020 for with right heel wound/osteomyelitis underwent debridement and right SFA to peroneal bypass. He also received 6 weeks of IV vancomycin and
meropenem for ESBL E. coli. Subsequent arteriogram in November 2024 showed patent vessels. He goes to [facility] for wound care. He was recently seen at [place] wound VAC was removed.
CVS: S1-S2 normal
Chest: CTA B/L
Abdomen: Soft, NT / Bowel sounds present
Extremities: No edema, right heel ulcer with mild discharge
# Diabetic foot infection
Nonhealing right ulcer/osteomyelitis
Sepsis secondary to MRSA bacteremia
IV meropenem and vancomycin
Follow blood cultures-Neg so far.
Routine echo
ID and podiatry evaluations appreciated
# UTI history of enlarged prostate bladder scan and straight cath as needed. CX neg
# Mild hyperkalemia-treat with Lokelma
# ASCVD/PAD
Status post bilateral lower extremity bypass surgeries angioplasty and stent in the past.
Hold Xarelto and continue aspirin pending intervention/procedures
BKA is being considered.Timing per vascular.
Pt says he has no H/O Chest pain and he can go a flight of stairs with no chest pain or SOB.
Continue statin
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
Accu-Cheks and sliding scale coverage
Patient is on Xigduo , Lantus 30 units daily, Prandin 1 mg 3 times daily as outpatient
Currently on Lantus 24 units and sliding scale coverage
# Acute on chronic microcytic anemia
Transfused 1 unit of packed red blood cells in the right of upcoming surgery
Hemoglobin 8.7
# History of intracranial/subdural hematoma
# Cognitive dysfunction
# Enlarged prostate
# Abnormal LFTs likely secondary to sepsis
# DVT prophylaxis-subcutaneous heparin
# Full code
D/W RN
D/W Vascular , they are planning surgery Saturday.
Anticipated Discharge: > 48 hours
Subjective/Interval History
-
Date of Service: January 25, 2025
Objective Data
-
Labs:
Laboratory Results
01/25/25
07:05
WBC 10.8
Hgb 8.7 L D
Hct 27.8 L
Plt Count 426 H
Sodium 134 L
Potassium 5.4 H
Chloride 101
Carbon Dioxide 26
BUN 30 H
Creatinine 0.7
Glucose 159 H
Calcium 8.2 L
Vital Signs:
Vital Signs
Temp Pulse Resp BP Pulse Ox
97.5 F 41 16 129/55 99
01/25/25 07:25 01/25/25 07:25 01/25/25 07:25 01/25/25 07:25 01/25/25 07:25
I&O
01/24/25 01/25/25 01/26/25
06:59 06:59 06:59
Intake Total 2160 / 2160 1890 / 1890
Output Total 1150 / 1150 1045 / 1045 137 / 137
Balance 1010 / 1010 845 / 845 -137 / -137
--- NOTE | 2025-01-25 14:15 | CM ---
Reviewed the chart notes and spoke with the patient at the bedside. CM continues to be available to patient/family and is monitoring medical plan for needs at discharge.
Plan: JITENDRA CHACON later in week.
--- NOTE | 2025-01-25 14:31 | W.PN.ID1 ---
Date of Service
Date of Service: January 25, 2025
Today's Communication
Continue antibiotics
Assessment / Plan
Suspected complicated urinary tract infection
Leukocytosis
Recent history of C. difficile
Chronic right heel wound
- hx osteomyelitis; hx 6 wk IV abx x 2 rounds
- followed by [facility]
MRSA bacteremia
- urine vs (R) foot source
DM
Diabetic neuropathy,
HLD
PAD
Subdural hematoma
Recommendations:
Leukocytosis improved, although now admission blood cultures are positive for MRSA.
Continue vancomycin.
Continue meropenem.
Repeat blood cultures pending.
Echocardiogram without evidence of vegetation although mitral valve leaflets and aortic valve leaflets noted to be thickened.
Continue prophylactic oral vancomycin given recent history of C. difficile.
Local care to right heel wound. Chart reviewed, patient tentatively for right BKA later this week.
����������������������������������������������������������
Chief Complaint
-: Bacteremia
Subjective / Review of Systems
Review of Systems: No Fever and No Chills
Vital Signs / Physical Exam
Vital Signs
Vital Signs
Temp Pulse Resp BP Pulse Ox
97.5 F 41 16 129/55 99
01/25/25 07:25 01/25/25 07:25 01/25/25 07:25 01/25/25 07:25 01/25/25 07:25
Physical Exam
Constitutional: No Acute Distress, Comfortable, Chronically Ill and Non-toxic
Eyes: Sclera Anicteric
Cardiovascular: S1/S2; Negative S3/S4
Pulmonary: Clear and Non Labored
Gastrointestinal: Soft and Non Tender
Extremities: Edema
Wound: Other
Neurological: Awake and Alert
Psychological: Calm
Objective Data
Lab Data
Lab Results
01/25/25 07:05
01/25/25 07:05
Estimated Creat Clear 94 ml/min 01/25/25 07:05
Lactic Acid 1.1 mmol/L (0.7-2.0) 01/23/25 01:37
Total Bilirubin 0.4 mg/dl (0.2-1.3) 01/24/25 06:46
AST 25 U/L (17-59) 01/24/25 06:46
ALT 63 U/L (0-50) H 01/24/25 06:46
Alkaline Phosphatase 105 U/L (38-126) 01/24/25 06:46
Most recent labs reviewed.
Micro Results:
01/24/25 12:14 Blood Culture - Preliminary
Blood/Venous No Growth in 24 hours- Final report to follow
01/24/25 11:39 Blood Culture - Preliminary
Blood/Venous No Growth in 24 hours- Final report to follow
01/22/25 23:15 Blood Culture - Preliminary
Blood/Venous Staph aureus MRSA
Gram Stain - Preliminary
01/22/25 23:15 Urine Culture - Final
Urine
01/25/25 07:05 Blood Culture - Pending
Blood/Venous
01/22/25 23:15 Blood Culture - Preliminary
Blood/Venous Positive culture in progress
Gram Stain - Preliminary
Imaging:
01/23/2025 CXR (2 view): No focal consolidation, pleural effusion or pneumothorax noted. Please see full dictation for additional detail.
[2025-01-25] MEDS: LOKELMA 10 GRAM PO (14:50)
[2025-01-25 15:10] VITALS: BP 137/56
[2025-01-25 16:52] LABS: Glucose - Point of Care 197 mg/dl (70-99)
[2025-01-25 19:05] LABS: Troponin I < 0.012 ng/ml
[2025-01-25 19:59] VITALS: BP 130/56
[2025-01-25] MEDS: CRESTOR 20 MG PO (19:59)
[2025-01-25] MEDS: COLACE 100 MG PO (19:59)
[2025-01-25 21:37] LABS: Glucose - Point of Care 214 mg/dl (70-99)
[2025-01-25] MEDS: FLUSH (NSS) 4 FLUSH IV (22:23)
[2025-01-25] MEDS: MELATONIN 3 MG PO (22:57)
[2025-01-25 23:11] VITALS: BP 131/55
--- NOTE | 2025-01-25 23:22 | PTCARENOTE ---
ax3 sinus 70's with pvc's at times bigeminy. bp wnl- afebrile.
[2025-01-26 03:15] VITALS: BP 118/62
[2025-01-26] MEDS: STERILE WATER FOR INJECTION 10 ML IV ×4 (04:12→21:48)
[2025-01-26] MEDS: MERREM 500 MG IV ×4 (04:12→21:47)
[2025-01-26] MEDS: FLUSH (NSS) 3 FLUSH IV ×2 (04:13→21:49)
[2025-01-26] MEDS: VANCOCIN 530 MG IV (05:00)
[2025-01-26 07:15] VITALS: BP 116/61
[2025-01-26 07:23] LABS: Glucose - Point of Care 155 mg/dl (70-99)
[2025-01-26 07:57] LABS: Hematocrit 27.5 % (39.0-52.0); Hemoglobin 8.6 g/dL (13.0-18.0); Mean Corp Hgb Conc. 31.3 g/dL (33.0-37.0); Mean Corpuscular Hgb 24.3 pg (27.0-31.0); Mean Corpuscular Volume 77.7 fL (80.0-94.0); Platelet Count 429 10^3/uL (130-400); Red Blood Cell Count 3.54 10^6/uL (4.70-6.10); Red Cell Dist. Width 19.1 % (11.5-14.5); White Blood Cell Count 10.9 10^3/uL (4.8-10.8)
[2025-01-26] MEDS: NOVOLOG FLEXPEN-MODERATE RESISTANCE 1 UNITS SC (08:30)
[2025-01-26] MEDS: VISBIOME 2 CAP PO (08:31)
[2025-01-26] MEDS: FLOMAX 0.4 MG PO (08:31)
[2025-01-26] MEDS: LOW STRENGTH ASPIRIN 81 MG PO (08:31)
[2025-01-26] MEDS: COLACE 100 MG PO (08:31)
[2025-01-26] MEDS: FLORASTOR 500 MG PO (08:31)
[2025-01-26] MEDS: HEPARIN 5000 UNITS SC ×2 (08:36→17:05)
[2025-01-26] MEDS: LANTUS 0.24 UNITS SC (08:37)
[2025-01-26] MEDS: SENOKOT 17.2 MG PO (08:37)
[2025-01-26] MEDS: MIRALAX 17 GRAMS PO (08:37)
[2025-01-26] MEDS: FIRVANQ 125 MG PO ×2 (08:37→20:29)
[2025-01-26 08:40] LABS: ALT (SGPT) 64 U/L (0-50); AST (SGOT) 33 U/L (17-59); Albumin 2.4 g/dl (3.5-5.0); Alkaline Phosphatase 103 U/L (38-126); Blood Urea Nitrogen 24 mg/dl (9-20); Carbon Dioxide 27 mmol/L (22-30); Chloride 101 mmol/L (98-107); Estimated Creatinine Clearance 94 ml/min; Glucose 134 mg/dl (70-99); Potassium 5.8 mmol/L (3.5-5.1); Sodium 133 mmol/L (135-145); Total Bilirubin 0.4 mg/dl (0.2-1.3); Total Protein 5.6 g/dl (6.3-8.2); eGFR > 60.00
--- NOTE | 2025-01-26 08:43 | PHA.VAN.FU ---
Vancomycin Assessment / Plan
- Assessment
Renal Function: Stable
WBC's are: Trending Up
In the past 24 hrs, patient has been: Afebrile
Concomitant Antimicrobials: meropenem, vancomycin PO
- Dosing Plan
Continue: Vanc 1500mg Q24H based on prior experience
- Monitoring Plan
No level(s) ordered at this time: consider levels in next few days - may consider scheduling peak tomorrow
Monitoring Comments: received 1500mg 01/24, 01/25 (divided) and today 01/26
- Follow Up
Pharmacy will continue to follow.
Vancomycin Follow UP
- -
Patient Age: 79
Patient Sex: Male
Vancomycin Day #: 4
Indication: Bone And Joint
Requesting Provider: Dr. Hale / Zac
Pertinent Antimicrobial Allergies:
NKDA
Height / Weight:
Height 5 ft 11 in
Actual Weight 79 kg
IBW in k.3
- Vital Signs / Lab Results
Temp Pulse Resp BP Pulse Ox
98.2 F 85 18 116/61 96
01/26/25 07:15 01/26/25 07:15 01/26/25 07:15 01/26/25 07:15 01/26/25 07:15
Lab Results - Hematology
01/24/25 01/25/25 01/26/25
06:46 07:05 07:24
WBC 9.2 10.8 10.9 H
Lab Results - Chemistry
01/24/25 01/25/25 01/26/25
06:46 07:05 07:24
BUN 28 H 30 H 24 H
Creatinine 0.8 0.7 0.7
Estimated Creat Clear 82 94 94
Albumin 2.4 L
Microbiology Results
01/25/25 07:05 Blood Culture - Preliminary
Blood/Venous No Growth in 24 hours- Final report to follow
01/22/25 23:15 Blood Culture - Preliminary
Blood/Venous Staph aureus MRSA
Gram Stain - Preliminary
01/24/25 12:14 Blood Culture - Preliminary
Blood/Venous No Growth in 24 hours- Final report to follow
01/24/25 11:39 Blood Culture - Preliminary
Blood/Venous No Growth in 24 hours- Final report to follow
01/22/25 23:15 Urine Culture - Final
Urine
01/22/25 23:15 Blood Culture - Preliminary
Blood/Venous Positive culture in progress
Gram Stain - Preliminary
[2025-01-26] MEDS: LOKELMA 10 GRAM PO (10:48)
--- NOTE | 2025-01-26 11:24 | W.PN.HOSP.TC ---
Today's Communication/Plan
-
Lokelma
Rpt K this afternoon
Low K diet
[facility] Kidney and bladder
Assessment / Plan
Assessment / Plan
79-year-old man with nonhealing right foot wound urinary symptoms. He was hospitalized in April 2020 for with right heel wound/osteomyelitis underwent debridement and right SFA to peroneal bypass. He also received 6 weeks of IV vancomycin and
meropenem for ESBL E. coli. Subsequent arteriogram in November 2024 showed patent vessels. He goes to [facility] for wound care. He was recently seen at [place] wound VAC was removed.
CVS: S1-S2 normal
Chest: CTA B/L
Abdomen: Soft, NT / Bowel sounds present
Extremities: No edema, right heel ulcer with mild discharge
# Diabetic foot infection
Nonhealing right ulcer/osteomyelitis
Sepsis secondary to MRSA bacteremia
IV meropenem and vancomycin
Follow blood cultures-Neg so far.
Echo 01/25/2025-normal biventricular size and systolic function without regional wall motion abnormality. Mild aortic stenosis. No significant change from 02/20/2023
ID and podiatry evaluations appreciated
# UTI history of enlarged prostate bladder scan and straight cath as needed. CX neg
# Mild hyperkalemia-treat with Lokelma. Low potassium diet. Unclear why potassium is running high.
# ASCVD/PAD
Status post bilateral lower extremity bypass surgeries angioplasty and stent in the past.
Hold Xarelto and continue aspirin pending intervention/procedures
BKA is being considered.Timing per vascular. Later this week
Pt says he has no H/O Chest pain and he can go a flight of stairs with no chest pain or SOB.
Continue statin
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
Accu-Cheks and sliding scale coverage
Patient is on Xigduo , Lantus 30 units daily, Prandin 1 mg 3 times daily as outpatient
Currently on Lantus 24 units and sliding scale coverage. Changed to 26 units.
Hold Oral Hypoglycemic agents for now.
# Acute on chronic microcytic anemia
Transfused 1 unit of packed red blood cells in the right of upcoming surgery
Hemoglobin better
# History of intracranial/subdural hematoma
# Cognitive dysfunction
# H/O C Diff- On PO Vanco Prophylaxis.
# Enlarged prostate, Microscopic hematuria-check ultrasound of the kidneys and bladder
# Abnormal LFTs likely secondary to sepsis-improving
# DVT prophylaxis-subcutaneous heparin
# Full code
D/W RN
Spoke to patient's daughter in detail and updated. She stated that patient has a history of C. difficile with Zerbaxa at [facility]. She had a lot of questions all were answered
Anticipated Discharge: > 48 hours
Subjective/Interval History
-
Date of Service: January 26, 2025
Objective Data
-
Labs:
Laboratory Results
01/26/25 01/26/25
07:24 15:00
WBC 10.9 H
Hgb 8.6 L
Hct 27.5 L
Plt Count 429 H
Sodium 133 L
Potassium 5.8 H Pending
Chloride 101
Carbon Dioxide 27
BUN 24 H
Creatinine 0.7
Glucose 134 H
Calcium 8.0 L
Total Bilirubin 0.4
AST 33
ALT 64 H
Alkaline Phosphatase 103
Vital Signs:
Vital Signs
Temp Pulse Resp BP Pulse Ox
98.2 F 85 18 116/61 96
01/26/25 07:15 01/26/25 07:15 01/26/25 07:15 01/26/25 07:15 01/26/25 07:15
I&O
01/25/25 01/26/25 01/27/25
06:59 06:59 06:59
Intake Total 1890 / 1890 2380 / 2380
Output Total 1045 / 1045 1327 / 1327
Balance 845 / 845 1053 / 1053
[2025-01-26 11:37] LABS: Glucose - Point of Care 243 mg/dl (70-99)
[2025-01-26 12:19] VITALS: BP 134/50
[2025-01-26] MEDS: NOVOLOG FLEXPEN-MODERATE RESISTANCE 3 UNITS SC ×2 (12:58→17:49)
--- NOTE | 2025-01-26 13:22 | CM ---
Chart reviewed; Anticipated Discharge: > 48 hours
Case Management will monitor and support discharge needs/services when determined
--- NOTE | 2025-01-26 14:19 | W.PN.ID1 ---
Date of Service
Date of Service: January 26, 2025
Today's Communication
Continue antibiotics.
Assessment / Plan
Suspected complicated urinary tract infection
Leukocytosis
Recent history of C. difficile
Chronic right heel wound
- hx osteomyelitis; hx 6 wk IV abx x 2 rounds
- followed by [facility]
MRSA bacteremia
- urine vs (R) foot source
DM
Diabetic neuropathy,
HLD
PAD
Subdural hematoma
Recommendations:
Continue vancomycin.
Continue meropenem.
Repeat blood cultures pending but no growth x 48 and 24 hours.
Echocardiogram without evidence of vegetation although mitral valve leaflets and aortic valve leaflets noted to be thickened.
Continue prophylactic oral vancomycin given recent history of C. difficile.
Local care to right heel wound. Chart reviewed, patient tentatively for right BKA later this week.
����������������������������������������������������������
Chief Complaint
-: Bacteremia
Subjective / Review of Systems
Review of Systems: No Fever and No Chills
Vital Signs / Physical Exam
Vital Signs
Vital Signs
Temp Pulse Resp BP Pulse Ox
98.0 F 46 18 134/50 100
01/26/25 12:19 01/26/25 12:19 01/26/25 12:19 01/26/25 12:19 01/26/25 12:19
Physical Exam
Constitutional: No Acute Distress, Comfortable, Chronically Ill and Non-toxic
Eyes: Sclera Anicteric
Cardiovascular: S1/S2; Negative S3/S4 or Murmur
Pulmonary: Clear and Non Labored
Gastrointestinal: Soft and Non Tender
Extremities: Edema
Wound: Other (Right foot dressed. No erythema extending up the leg.)
Neurological: Awake and Alert
Psychological: Calm
Objective Data
Lab Data
Lab Results
01/26/25 07:24
Estimated Creat Clear 94 ml/min 01/26/25 07:24
Lactic Acid 1.1 mmol/L (0.7-2.0) 01/23/25 01:37
Total Bilirubin 0.4 mg/dl (0.2-1.3) 01/26/25 07:24
AST 33 U/L (17-59) 01/26/25 07:24
ALT 64 U/L (0-50) H 01/26/25 07:24
Alkaline Phosphatase 103 U/L (38-126) 01/26/25 07:24
Most recent labs reviewed.
Micro Results:
01/24/25 12:14 Blood Culture - Preliminary
Blood/Venous No Growth in 48 hours- Final report to follow
01/24/25 11:39 Blood Culture - Preliminary
Blood/Venous No Growth in 48 hours- Final report to follow
01/22/25 23:15 Blood Culture - Preliminary
Blood/Venous Staph aureus MRSA
Gram Stain - Preliminary
01/22/25 23:15 Blood Culture - Preliminary
Blood/Venous Staph aureus MRSA
Gram Stain - Preliminary
01/25/25 07:05 Blood Culture - Preliminary
Blood/Venous No Growth in 24 hours- Final report to follow
01/22/25 23:15 Urine Culture - Final
Urine
Imaging:
01/25/25 ECHO (TTE): Normal biventricular size and systolic function. No regional wall motion abnormality. Mild aortic stenosis. EF approximately 65%. Thickened mitral valve leaflets. Thickened aortic valve leaflets with restricted motion. No
intracardiac mass or thrombus formation seen. Please see full dictation for additional detail.
01/23/2025 CXR (2 view): No focal consolidation, pleural effusion or pneumothorax noted. Please see full dictation for additional detail.
[2025-01-26 15:30] VITALS: BP 132/58
[2025-01-26 15:33] LABS: Potassium 4.9 mmol/L (3.5-5.1)
[2025-01-26 17:14] LABS: Glucose - Point of Care 244 mg/dl (70-99)
[2025-01-26 19:30] VITALS: BP 134/63
[2025-01-26] MEDS: SENOKOT PO (20:28)
[2025-01-26] MEDS: CRESTOR 20 MG PO (20:29)
[2025-01-26] MEDS: COLACE PO (20:29)
[2025-01-26 21:25] LABS: Glucose - Point of Care 265 mg/dl (70-99)
[2025-01-26] MEDS: MELATONIN 3 MG PO (21:48)
[2025-01-26 23:30] VITALS: BP 129/64
[2025-01-27] MEDS: HEPARIN 5000 UNITS SC ×4 (00:23→23:15)
[2025-01-27 03:29] VITALS: BP 121/57
[2025-01-27] MEDS: MERREM 500 MG IV ×4 (04:13→21:14)
[2025-01-27] MEDS: STERILE WATER FOR INJECTION 10 ML IV ×4 (04:13→21:14)
[2025-01-27] MEDS: FLUSH (NSS) 4 FLUSH IV (04:14)
[2025-01-27] MEDS: VANCOCIN 530 MG IV (06:03)
[2025-01-27 08:00] VITALS: BP 124/55
[2025-01-27 08:10] LABS: Hematocrit 29.3 % (39.0-52.0); Hemoglobin 9.1 g/dL (13.0-18.0); Mean Corp Hgb Conc. 31.1 g/dL (33.0-37.0); Mean Corpuscular Hgb 24.3 pg (27.0-31.0); Mean Corpuscular Volume 78.1 fL (80.0-94.0); Mean Platelet Volume 8.8 fL (7.4-10.4); Platelet Count 447 10^3/uL (130-400); Red Blood Cell Count 3.75 10^6/uL (4.70-6.10); Red Cell Dist. Width 19.6 % (11.5-14.5)
[2025-01-27 08:44] LABS: ALT (SGPT) 55 U/L (0-50); Blood Urea Nitrogen 19 mg/dl (9-20); Carbon Dioxide 28 mmol/L (22-30); Chloride 102 mmol/L (98-107); Estimated Creatinine Clearance 110 ml/min; Glucose 147 mg/dl (70-99); Potassium 4.8 mmol/L (3.5-5.1); Sodium 136 mmol/L (135-145); eGFR > 60.00
[2025-01-27 08:48] LABS: Glucose - Point of Care 178 mg/dl (70-99)
[2025-01-27] MEDS: LANTUS 0.26 UNITS SC (08:51)
[2025-01-27] MEDS: NOVOLOG FLEXPEN-MODERATE RESISTANCE 1 UNITS SC (08:51)
[2025-01-27] MEDS: VISBIOME 2 CAP PO (08:52)
[2025-01-27] MEDS: FLORASTOR 500 MG PO (08:54)
[2025-01-27] MEDS: FLOMAX 0.4 MG PO (08:54)
[2025-01-27] MEDS: LOW STRENGTH ASPIRIN 81 MG PO (08:55)
[2025-01-27] MEDS: MIRALAX PO (10:02)
[2025-01-27] MEDS: COLACE PO (10:02)
[2025-01-27] MEDS: SENOKOT PO (10:02)
[2025-01-27] MEDS: FIRVANQ 125 MG PO ×2 (10:02→21:00)
--- NOTE | 2025-01-27 10:10 | W.PN.HOSP.TC ---
Today's Communication/Plan
-
[facility]
Continue AB
Assessment / Plan
Assessment / Plan
79-year-old man with nonhealing right foot wound urinary symptoms. He was hospitalized in April 2020 for with right heel wound/osteomyelitis underwent debridement and right SFA to peroneal bypass. He also received 6 weeks of IV vancomycin and
meropenem for ESBL E. coli. Subsequent arteriogram in November 2024 showed patent vessels. He goes to [facility] for wound care. He was recently seen at [facility] wound VAC was removed.
CVS: S1-S2 normal
Chest: CTA B/L
Abdomen: Soft, NT / Bowel sounds present
Extremities: No edema, right heel ulcer with mild discharge
# Diabetic foot infection
Nonhealing right ulcer/osteomyelitis
Sepsis secondary to MRSA bacteremia
IV meropenem and vancomycin
Follow blood cultures-Neg so far.
Echo 01/25/2025-normal biventricular size and systolic function without regional wall motion abnormality. Mild aortic stenosis. No significant change from 02/20/2023
ID and podiatry evaluations appreciated
# UTI history of enlarged prostate bladder scan and straight cath as needed. CX neg
# Mild hyperkalemia- Better Lokelma. Low potassium diet. Unclear why potassium is running high.
# ASCVD/PAD
Status post bilateral lower extremity bypass surgeries angioplasty and stent in the past.
Hold Xarelto and continue aspirin pending intervention/procedures
BKA is being considered.Timing per vascular. Later this week
Pt says he has no H/O Chest pain and he can go a flight of stairs with no chest pain or SOB.
Continue statin
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
Accu-Cheks and sliding scale coverage
Patient is on Xigduo , Lantus 30 units daily, Prandin 1 mg 3 times daily as outpatient
Currently on Lantus 24 units and sliding scale coverage. Changed to 26 units.
Hold Oral Hypoglycemic agents for now.
# Acute on chronic microcytic anemia
Transfused 1 unit of packed red blood cells in the right of upcoming surgery
Hemoglobin better
# History of intracranial/subdural hematoma
# Cognitive dysfunction
# H/O C Diff- On PO Vanco Prophylaxis.
# Enlarged prostate, Microscopic hematuria-check ultrasound of the kidneys and bladder
# Abnormal LFTs likely secondary to sepsis-improving
# DVT prophylaxis-subcutaneous heparin
# Full code
D/W RN
01/27/25-Spoke to patient's daughter in detail and updated. She stated that patient has a history of C. difficile with Zerbaxa at [facility]. She had a lot of questions all were answered
pt and family requesting psyche eval due to his anxiety about Amputation.
Anticipated Discharge: > 48 hours
Subjective/Interval History
-
Date of Service: January 27, 2025
Objective Data
-
Labs:
Laboratory Results
01/27/25
07:58
WBC 10.0
Hgb 9.1 L
Hct 29.3 L
Plt Count 447 H
Sodium 136
Potassium 4.8
Chloride 102
Carbon Dioxide 28
BUN 19
Creatinine 0.6 L
Glucose 147 H
Calcium 8.0 L
ALT 55 H
Vital Signs:
Vital Signs
Temp Pulse Resp BP Pulse Ox
98.1 F 67 15 124/55 97
01/27/25 08:00 01/27/25 08:00 01/27/25 08:00 01/27/25 08:00 01/27/25 08:00
I&O
01/26/25 01/27/25 01/28/25
06:59 06:59 06:59
Intake Total 2380 / 2380 1460 / 1460
Output Total 1327 / 1327 1974 / 1974
Balance 1053 / 1053 -515 / -515
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
--- NOTE | 2025-01-27 10:57 | CM ---
CM following re: discharge planning.
Reviewed pt's chart met with pt and had a long conversation with pt's daughter Teetee over the phone.
Pt's daughter requested psychological/psychiatric services to her father stated that her father is very depressed that relates to his upcoming surgery on Saturday for amputation of the leg. Pt's daughter stated that her father will need
psychological/psychiatric follow up regarding her father well being before and after the surgery, addressing body image change.
Psychiatrist evaluation requested.
CM met with the pt. pt presents with good mood, normal spirit. Pt stated he is aware of the surgery on Saturday, spoke to MD team about it and pt stated he has some conflicting thoughts regarding surgery and at the same time pt stated he is looking
forward to have amputation of his leg that will have a positive effect on his health. Pt stated he is tired to deal with infections. Emotional psychological support offered and provided. Pt is aware he will need some time of recovery after surgery,
requested to go to [facility] or [facility]. Pt stated he is aware of the process of his recovery and he hopes he will have a prosthetic leg and will be able to drive. Pt is aware it will take months for his final
recovery in order to have a prosthetic leg, expressed his understanding and pt stated he is looking into it. Pt expressed his great appreciation talking to him regarding his feelings. At the end of my conversation with the pt, psychiatrist came in
to talk with the pt.
D/C plan: Per pt and daughter strong request, [facility] or [facility] [address] [facility]. Per daughter, pt has private insurance and Medicare part A
CM will follow to continue meeting with the pt to provide with emotional/psychological support and to assist with discharge plan updates as hospitalization progresses.
[2025-01-27 11:03] LABS: Vancomycin Peak 20.9 ug/ml (18-26)
--- NOTE | 2025-01-27 11:03 | CON.MD ---
Consultation - Medical
-
patient seen chart reviewed. spoke with dr elizabeth and nursing. the patient is a 79 year old male with dm who is facing amputation of his right leg below the knee. this consult ordered for anxiety about the procedure .the patiient recounted to me
the frustration of the past year as he battled infection in an effort to avoid amputation. . he is trying to rationalize that if he does well ultimately he will be better off with the amputation than he was attempting to deal with infection and its
effects. he is a man who has faced adversity before. he was in the stationed in [place] over a year. 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 he is
worried about what he will be able to do after the surgery...in the immediate aftermath of the surgery worried about life's nitty gritty 'how will i get to the toilet...?' he has no hx of depression or anxiety. has never been treated
psychiatrically. he lives with his and has a d who is supportive and one 18 yo grandson. he had been keeping busy working for the [employer] and knows some of our staff here from that job ('i got bored after a (being retired) while'. sleep and
appetite had been okay. he could enjoy activities. he has never been suicidal.
past psych hx see above no prior psych hx
medical hx r bka planned as infection failed to heal and he developed osteomyelitis. patient has uti admitted w hyperkalemia hx anemia microcytic hx dm pvd s/p arterial bypass rt leg hx mrsa and c diff infection long qt syndrome sleep related
hypoxia neuropathy
fh denied
substance abuse none smoked cigs in his teens not since
social see above lives w d supportive asked if he had friends and he reports many of his friends have at this point. his parents and family lived to 70's and 80's he would like to live to 87 enjoys taking care of his lawn
worried he won't be able to
mse alert ox3 very pleasant and cooperative speech and thought process nl mood is euthymic a bit anxious but not unduly so affect normal no si no psychosis above aver intell insight judgment good
dx adjustment d/o unspec
recommendations patient is understandably anxious about a serious procedure. he worries he will be a burden to his . to a degree i was able to reassure him that his needs will be met here. encouraged him to think about ? he needs answered
and write them down and ask them of his providers. i do not feel he needs any type of psychotropic medications. to the extent that i could i did reassure him that i have seen remarkable recoveries after surgery and that it is possible he will
actually feel better after a successful amputation than he did fighting infection over the past year. encouraged him to pour his all into PT and to recognize that he will have pain but his providers will address this and he should be honest about
the level of pain he can tolerate. will look in on him tomorrow.
[2025-01-27 11:37] LABS: Glucose - Point of Care 232 mg/dl (70-99)
--- NOTE | 2025-01-27 11:53 | W.PN.ID1 ---
Date of Service
Date of Service: January 27, 2025
Today's Communication
Continue antibiotics.
Assessment / Plan
Suspected complicated urinary tract infection
Leukocytosis
Recent history of C. difficile
Chronic right heel wound
- hx osteomyelitis; hx 6 wk IV abx x 2 rounds
- followed by [facility]
MRSA bacteremia
- urine vs (R) foot source
DM
Diabetic neuropathy,
HLD
PAD
Subdural hematoma
Recommendations:
Continue vancomycin.
Continue meropenem.
Repeat blood cultures pending but no growth x 48 and 72 hours.
Echocardiogram without evidence of vegetation although mitral valve leaflets and aortic valve leaflets noted to be thickened.
Continue prophylactic oral vancomycin given recent history of C. difficile.
Local care to right heel wound. Chart reviewed, patient tentatively for right BKA later this week. Following amputation, further meropenem can be discontinued.
Patient will require further antibiotics for prior MRSA bacteremia.
����������������������������������������������������������
Chief Complaint
-: Bacteremia
Subjective / Review of Systems
Review of Systems: No Fever and No Chills
Vital Signs / Physical Exam
Vital Signs
Vital Signs
Temp Pulse Resp BP Pulse Ox
98.1 F 67 15 124/55 97
01/27/25 08:00 01/27/25 08:00 01/27/25 08:00 01/27/25 08:00 01/27/25 08:00
Physical Exam
Constitutional: No Acute Distress, Comfortable, Chronically Ill and Non-toxic
Eyes: Sclera Anicteric
Cardiovascular: S1/S2; Negative S3/S4 or Murmur
Pulmonary: Clear and Non Labored
Gastrointestinal: Soft and Non Tender
Extremities: Edema
Wound: Other (Right foot dressed. No erythema extending up the leg.)
Neurological: Awake and Alert
Psychological: Calm
Objective Data
Lab Data
Lab Results
01/27/25 07:58
01/27/25 07:58
Estimated Creat Clear 110 ml/min 01/27/25 07:58
Lactic Acid 1.1 mmol/L (0.7-2.0) 01/23/25 01:37
Total Bilirubin 0.4 mg/dl (0.2-1.3) 01/26/25 07:24
AST 33 U/L (17-59) 01/26/25 07:24
Alkaline Phosphatase 103 U/L (38-126) 01/26/25 07:24
ALT 55 U/L (0-50) H 01/27/25 07:58
Most recent labs reviewed.
Micro Results:
01/24/25 11:39 Blood Culture - Preliminary
Blood/Venous No Growth in 72 hours- Final report to follow
01/25/25 07:05 Blood Culture - Preliminary
Blood/Venous No Growth in 48 hours- Final report to follow
01/24/25 12:14 Blood Culture - Preliminary
Blood/Venous No Growth in 48 hours- Final report to follow
01/22/25 23:15 Blood Culture - Preliminary
Blood/Venous Staph aureus MRSA
Gram Stain - Preliminary
01/22/25 23:15 Blood Culture - Preliminary
Blood/Venous Staph aureus MRSA
Gram Stain - Preliminary
01/22/25 23:15 Urine Culture - Final
Urine
Imaging:
01/25/25 ECHO (TTE): Normal biventricular size and systolic function. No regional wall motion abnormality. Mild aortic stenosis. EF approximately 65%. Thickened mitral valve leaflets. Thickened aortic valve leaflets with restricted motion. No
intracardiac mass or thrombus formation seen. Please see full dictation for additional detail.
01/23/2025 CXR (2 view): No focal consolidation, pleural effusion or pneumothorax noted. Please see full dictation for additional detail.
[2025-01-27 11:54] LABS: Vitamin D, 25-OH*** 23.8 ng/mL (30-80)
[2025-01-27 12:12] VITALS: BP 130/60
[2025-01-27 12:26] LABS: Vitamin B12 932 pg/ml (239-931)
[2025-01-27] MEDS: NOVOLOG FLEXPEN-MODERATE RESISTANCE 3 UNITS SC ×2 (12:47→18:10)
--- NOTE | 2025-01-27 13:22 | PHA.VAN.FU ---
Vancomycin Assessment / Plan
- Assessment
Renal Function: Stable
WBC's are: WNL
In the past 24 hrs, patient has been: Afebrile
Concomitant Antimicrobials: meropenem, vancomycin
- Dosing Plan
Continue: Vanc 1500mg Q24H
- Monitoring Plan
Peak Level: peak = 20.9 - will assess with trough in AM
Trough Level: 01/28 05:30
Peak drawn after 4th total dose of 1500mg; however, dose on 01/25 was divided with 1g + 500mg
- Follow Up
Pharmacy will continue to follow.
Vancomycin Follow UP
- -
Patient Age: 79
Patient Sex: Male
Vancomycin Day #: 5
Indication: Bone And Joint
Requesting Provider: Dr. Hale / Zac
Pertinent Antimicrobial Allergies:
NKDA
Height / Weight:
Height 5 ft 11 in
Actual Weight 79 kg
IBW in k.3
- Vital Signs / Lab Results
Temp Pulse Resp BP Pulse Ox
98.1 F 68 17 130/60 98
01/27/25 12:12 01/27/25 12:12 01/27/25 12:12 01/27/25 12:12 01/27/25 12:12
Lab Results - Hematology
01/25/25 01/26/25 01/27/25
07:05 07:24 07:58
WBC 10.8 10.9 H 10.0
Lab Results - Chemistry
01/25/25 01/26/25 01/27/25
07:05 07:24 07:58
BUN 30 H 24 H 19
Creatinine 0.7 0.7 0.6 L
Estimated Creat Clear 94 94 110
Albumin 2.4 L
Microbiology Results
01/24/25 12:14 Blood Culture - Preliminary
Blood/Venous No Growth in 72 hours- Final report to follow
01/24/25 11:39 Blood Culture - Preliminary
Blood/Venous No Growth in 72 hours- Final report to follow
01/25/25 07:05 Blood Culture - Preliminary
Blood/Venous No Growth in 48 hours- Final report to follow
01/22/25 23:15 Blood Culture - Preliminary
Blood/Venous Staph aureus MRSA
Gram Stain - Preliminary
01/22/25 23:15 Blood Culture - Preliminary
Blood/Venous Staph aureus MRSA
Gram Stain - Preliminary
Therapeutic Drug Monitoring
Vancomycin Peak 20.9 ug/ml () 01/27/25 10:10
[2025-01-27 16:24] VITALS: BP 138/61
[2025-01-27 16:48] LABS: Glucose - Point of Care 216 mg/dl (70-99)
[2025-01-27 19:26] VITALS: BP 127/63
[2025-01-27] MEDS: SENOKOT 17.2 MG PO (21:00)
[2025-01-27] MEDS: COLACE 100 MG PO (21:00)
[2025-01-27] MEDS: CRESTOR 20 MG PO (21:14)
[2025-01-27] MEDS: MELATONIN 3 MG PO (21:14)
[2025-01-27 21:16] LABS: Glucose - Point of Care 282 mg/dl (70-99)
--- NOTE | 2025-01-27 22:22 | PTCARENOTE ---
Per protocol, house SNOW REMOVAL SUPERVISOR notified of patient's preliminary Blood cultures.
[2025-01-27 23:38] VITALS: BP 141/62
--- NOTE | 2025-01-28 03:20 | DOWNTIME ---
There was a [employer] Client Optical Engineer Downtime on 01/28/2025 from 0200 to 01/29/2024 at 0318 .
[2025-01-28 03:27] VITALS: BP 126/62
[2025-01-28] MEDS: STERILE WATER FOR INJECTION 10 ML IV ×4 (03:30→21:47)
[2025-01-28] MEDS: MERREM 500 MG IV ×4 (03:30→21:47)
[2025-01-28 06:02] LABS: Hematocrit 25.5 % (39.0-52.0); Hemoglobin 8.3 g/dL (13.0-18.0); Mean Corp Hgb Conc. 32.5 g/dL (33.0-37.0); Mean Corpuscular Hgb 24.7 pg (27.0-31.0); Mean Corpuscular Volume 75.9 fL (80.0-94.0); Mean Platelet Volume 8.8 fL (7.4-10.4); Platelet Count 406 10^3/uL (130-400); Red Blood Cell Count 3.36 10^6/uL (4.70-6.10); Red Cell Dist. Width 19.3 % (11.5-14.5); White Blood Cell Count 8.2 10^3/uL (4.8-10.8)
[2025-01-28 06:13] LABS: Blood Urea Nitrogen 23 mg/dl (9-20); Carbon Dioxide 28 mmol/L (22-30); Chloride 101 mmol/L (98-107); Estimated Creatinine Clearance 110 ml/min; Glucose 237 mg/dl (70-99); Sodium 134 mmol/L (135-145); eGFR > 60.00
[2025-01-28 06:29] LABS: Vancomycin Trough 10.6 ug/ml (5-20)
[2025-01-28] MEDS: VANCOCIN 530 MG IV (06:34)
[2025-01-28 07:05] VITALS: BP 118/58
[2025-01-28] MEDS: LOW STRENGTH ASPIRIN 81 MG PO (07:49)
[2025-01-28] MEDS: HEPARIN 5000 UNITS SC ×3 (07:50→23:18)
[2025-01-28] MEDS: FLOMAX 0.4 MG PO (07:50)
[2025-01-28] MEDS: VISBIOME 2 CAP PO (07:50)
[2025-01-28] MEDS: FIRVANQ 125 MG PO ×2 (07:51→19:52)
[2025-01-28] MEDS: FLORASTOR 500 MG PO (07:53)
[2025-01-28] MEDS: MIRALAX PO (08:02)
[2025-01-28] MEDS: COLACE PO (08:03)
[2025-01-28] MEDS: SENOKOT PO (08:03)
[2025-01-28 08:07] LABS: Glucose - Point of Care 223 mg/dl (70-99)
[2025-01-28] MEDS: NOVOLOG FLEXPEN-MODERATE RESISTANCE 3 UNITS SC (08:15)
[2025-01-28] MEDS: LANTUS 0.3 UNITS SC (08:16)
[2025-01-28] MEDS: GLUCOPHAGE 500 MG PO ×2 (08:22→16:49)
[2025-01-28] MEDS: VITAMIN D3 (cholecalciferol) 25 MCG PO (08:22)
[2025-01-28] MEDS: PRANDIN 1 MG PO ×3 (08:22→16:42)
--- NOTE | 2025-01-28 08:30 | PHA.VAN.FU ---
Vancomycin Assessment / Plan
- Assessment
Renal Function: Stable
WBC's are: WNL
In the past 24 hrs, patient has been: Afebrile
Concomitant Antimicrobials: meropenem, vancomycin
- Assessment - Therapeutic Drug Monitoring
Extrapolated Cmax (mcg/mL): 22.9
Peak level was drawn: Appropriately (drawn ~2.6H after end of previous infusion)
Extrapolated Cmin (mcg/mL): 10.5
Trough Drawn: Appropriately
Levels were drawn: At steady state (drawn after 4th total dose of 1500mg; however, dose on 01/25 was divided with 1g + 500mg)
Calculated AUC (mcg*h/mL): 382
Calculated ke: 0.0347
Calculated half life (H): 20
Calculated Vd (L): 113 (~1.4 L/kg)
Calculated Vanc CL (ml/min): 65
- Dosing Plan
Adjust Regimen to: Vanc 1750mg Q24H
New Regimen Predicts: AUC (462), Peak (27.4), Trough (12.8)
Dosing Comments: give additional 500mg today to booster levels
patient may have additional accumulation but will increase dosing with subtherapeutic levels and indication
- Monitoring Plan
No level(s) ordered at this time: repeat levels in next few days
- Follow Up
Pharmacy will continue to follow.
Vancomycin Follow UP
- -
Patient Age: 79
Patient Sex: Male
Vancomycin Day #: 6
Indication: Bone And Joint
Requesting Provider: Dr. Hale / Zac
Pertinent Antimicrobial Allergies:
NKDA
Height / Weight:
Height 5 ft 11 in
Actual Weight 79 kg
IBW in k.3
- Vital Signs / Lab Results
Temp Pulse Resp BP Pulse Ox
98.4 F 63 16 126/62 98
01/28/25 03:27 01/28/25 03:27 01/28/25 03:27 01/28/25 03:27 01/28/25 03:27
Lab Results - Hematology
01/26/25 01/27/25 01/28/25
07:24 07:58 05:43
WBC 10.9 H 10.0 8.2
Lab Results - Chemistry
01/26/25 01/27/25 01/28/25
07: 07:58 05:43
BUN 24 H 19 23 H
Creatinine 0.7 0.6 L 0.6 L
Estimated Creat Clear 94 110 110
Albumin 2.4 L
Microbiology Results
01/25/25 07:05 Blood Culture - Preliminary
Blood/Venous Positive culture in progress
Gram Stain - Preliminary
01/24/25 12:14 Blood Culture - Preliminary
Blood/Venous No Growth in 72 hours- Final report to follow
01/24/25 11:39 Blood Culture - Preliminary
Blood/Venous No Growth in 72 hours- Final report to follow
01/22/25 23:15 Blood Culture - Preliminary
Blood/Venous Staph aureus MRSA
Gram Stain - Preliminary
01/22/25 23:15 Blood Culture - Preliminary
Blood/Venous Staph aureus MRSA
Gram Stain - Preliminary
Therapeutic Drug Monitoring
Vancomycin Peak 20.9 ug/ml (18-26) 01/27/25 10:10
Vancomycin Trough 10.6 ug/ml (5-20) 01/28/25 05:43
[2025-01-28] MEDS: VANCOCIN HCL 500 MG 100 IV (11:03)
--- NOTE | 2025-01-28 11:09 | CM ---
Reviewed the chart notes and spoke with the patient at the bedside. Plan is for right below the knee amputation tomorrow. CM continues to be available to patient/family and is monitoring medical plan for needs at discharge.
Plan: Patient and family are hoping for discharge to [facility] when medically stable.
[2025-01-28 11:25] VITALS: BP 114/65
--- NOTE | 2025-01-28 11:53 | W.PN.HOSP.TC ---
Addendum entered and electronically signed by Moisés Iglesias MD 01/28/25 15:09:
Patient wanted unrestricted diet for dinner so he can have more portion because he will be n.p.o. after midnight. Will still give the potassium restriction. Patient should be mindful of carbohydrate intake so sugars do not go.
Original Note:
Today's Communication/Plan
-
Repeat blood cultures
Urology evaluation
Oral hypoglycemic agents today and hold tomorrow in anticipation for surgery
Lower dose of Lantus tomorrow morning in anticipation of surgery
Assessment / Plan
Assessment / Plan
79-year-old man with nonhealing right foot wound urinary symptoms. He was hospitalized in April 2020 for with right heel wound/osteomyelitis underwent debridement and right SFA to peroneal bypass. He also received 6 weeks of IV vancomycin and
meropenem for ESBL E. coli. Subsequent arteriogram in November 2024 showed patent vessels. He goes to [facility] for wound care. He was recently seen at [place] wound VAC was removed.
CVS: S1-S2 normal
Chest: CTA B/L
Abdomen: Soft, NT / Bowel sounds present
Extremities: No edema, right heel ulcer with mild discharge
# Diabetic foot infection
Nonhealing right ulcer/osteomyelitis
Sepsis secondary to MRSA bacteremia
IV meropenem and vancomycin
Blood cultures from 01/25/2025 with MRSA therefore ordered more cultures today.
Echo 01/25/2025-normal biventricular size and systolic function without regional wall motion abnormality. Mild aortic stenosis. No significant change from 02/20/2023
ID and podiatry evaluations appreciated
# UTI history of enlarged prostate bladder scan and straight cath as needed. CX neg
# Mild hyperkalemia- Better Lokelma. Low potassium diet. Unclear why potassium is running high.
# ASCVD/PAD
Status post bilateral lower extremity bypass surgeries angioplasty and stent in the past.
Hold Xarelto and continue aspirin pending intervention/procedures
BKA planned for tomorrow
Pt says he has no H/O Chest pain and he can go a flight of stairs with no chest pain or SOB.
Continue statin
Cardiology evaluation for risk stratification appreciated
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
Accu-Cheks and sliding scale coverage
Patient is on Xigduo , Lantus 30 units daily, Prandin 1 mg 3 times daily as outpatient
Will give Lantus 30 units today and 15 units tomorrow
Restarted metformin and Prandin as sugar was elevated this morning. We will hold at tomorrow morning in anticipation for surgery
# Acute on chronic microcytic anemia
Transfused 1 unit of packed red blood cells in the light of upcoming surgery
Hemoglobin better
# History of intracranial/subdural hematoma
# Cognitive dysfunction
# H/O C Diff- On PO Vanco Prophylaxis.
# Enlarged prostate, Microscopic hematuria-ultrasound of the urinary bladder showed 6 X 1.8 X 1.7 cm lobulated echogenic focus. May represent clot or possible mass. No hydronephrosis or sonographic evidence of suspicious renal lesion.
Sees Joe Beauchamp as OP.
Urology eval requested.
# Abnormal LFTs likely secondary to sepsis-improving
# Vitamin D deficiency-replace
# DVT prophylaxis-subcutaneous heparin
# Full code
D/W RN
01/27/25-Spoke to patient's daughter in detail and updated. She stated that patient has a history of C. difficile with Zerbaxa at [facility]. She had a lot of questions all were answered
D/W Daughter and updated
Time spent 50 min
Anticipated Discharge: > 48 hours
Subjective/Interval History
-
Date of Service: January 28, 2025
Objective Data
-
Labs:
Laboratory Results
01/28/25
05:43
WBC 8.2
Hgb 8.3 L
Hct 25.5 L
Plt Count 406 H
Sodium 134 L
Potassium 5.0
Chloride 101
Carbon Dioxide 28
BUN 23 H
Creatinine 0.6 L
Glucose 237 H
Calcium 8.0 L
Vital Signs:
Vital Signs
Temp Pulse Resp BP Pulse Ox
98.0 F 72 16 118/58 98
01/28/25 07:05 01/28/25 07:05 01/28/25 07:05 01/28/25 07:05 01/28/25 07:05
I&O
01/27/25 01/28/25 01/29/25
06:59 06:59 06:59
Intake Total 1460 / 1460 740 / 740
Output Total 1974 / 1974 1100 / 1100
Balance -515 / -515 -360 / -360
[2025-01-28 12:02] LABS: Glucose - Point of Care 185 mg/dl (70-99)
[2025-01-28] MEDS: NOVOLOG FLEXPEN-MODERATE RESISTANCE 1 UNITS SC (12:33)
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
[2025-01-28 15:16] VITALS: BP 145/65; PULSE 61; O2SAT 97
[2025-01-28 15:30] VITALS: BP 139/67
--- NOTE | 2025-01-28 15:42 | CONS.URO ---
Consultation
-
Date/Time Consultation Performed: 01/28/25 1635
Performing Provider: Adryan
Reason for Consultation: Bladder mass
Medical History
History of Present Illness
ED admssion note, excerpt: '79 yo male from home w h/o IDDM, diabetic neuropathy, HLD, PAD, with chronic wound right heel, scheduled for right foot amputation with Dr. Frey presents for fever, nausea and vomiting'.
Now ask to see patient for hematuria -- established urologist is Dr Joe Hallman: 'I saw him and another sheri and nothing was ever accomplished.' Pt states cystoscopy has never been performed.
'I'm going alright now and don't see any blood.'
Past Medical History
Past Medical History: Other (ASCVD / PAD DM-II Osteomyelitis R Heel Hypertension)
Past Surgical History: Other (Right Cuboid Debridement Right 2nd / 3rd Toe Amputations Right SFA - Peroneal Bypass LLE Bypass RLE Angioplasty / Stent Appendectomy)
Allergies/Home Medications
Allergies
Allergy/AdvReac Type Severity Reaction Status Date / Time
No Known Allergies Allergy Verified 01/22/25 20:56
Home Medications
�Medication �Instructions �Recorded �Confirmed �Type
repaglinide 1 mg tablet 1 mg PO MEALS Diabetes 08/15/21 01/22/25 History
rosuvastatin 20 mg tablet 20 mg PO HS High cholesterol 08/15/21 01/22/25 History
coenzyme Q10 100 mg capsule 100 mg PO DAILY Supplement ##0 10/20/21 01/22/25 History
(CoQ-10)
rivaroxaban 2.5 mg tablet (Xarelto) 2.5 mg PO BID #0 tabs 05/26/24 01/22/25 Rx
dapagliflozin propaned 5 1 tab PO BID Diabetes 12/01/24 01/22/25 History
mg-metformin ER 1,000 mg tablet,
ext rel 24hr (Xigduo XR)
insulin glargine U-300 conc 300 30 unit SC DAILY Diabetes 12/01/24 01/22/25 History
unit/mL (1.5 mL) subcutaneous pen
(Touchristi SoloStar U-300 Insulin)
vit C 250 mg-vit E 90 mg-zinc 40 1 tab PO BID Supplement 12/01/24 01/22/25 History
mg-copper 1 [id number]
capsule (PreserVision AREDS-2)
Lactobac no.2-Bifidobac no.1-S. 1 cap PO DAILY Gastrointestinal 01/22/25 01/22/25 History
thermo 112.5 billion cell capsule Issue
(Visbiome)
Saccharomyces boulardii 250 mg 500 mg PO DAILY Gastrointestinal 01/22/25 01/22/25 History
capsule (Florastor) Issue
doxycycline hyclate 100 mg capsule 100 mg PO BID Infection 01/22/25 01/22/25 History
therapeutic multivitamin 1 tab PO DAILY Supplement 01/22/25 01/22/25 History
vitamin K2 (MK-4) 100 mcg tablet 100 mcg PO DAILY Supplement 01/22/25 01/22/25 History
Physical Exam
Vital Signs
Vital Signs
Temp Pulse Resp BP Pulse Ox
97.7 F 71 18 114/65 100
01/28/25 11:25 01/28/25 11:25 01/28/25 11:25 01/28/25 11:25 01/28/25 11:25
Lab / Testing Results
Laboratory Results
01/28/25 05:43
01/28/25 05:43
Physical Exam
adult male seated in bedside lounger
General: No Apparent Distress
Assessment / Plan
-
Microhematuria
No UTI
Bladder mass: '6.0 x 1.8 x 1.7 cm lobulated, echogenic focus along the inferior aspect of the urinary bladder which may represent clot or possible mass.'
Rec: Outpatient cystoscopy
Data Reviewed
-
Ultrasound: Image personally visualized and interpreted and Discussed with Patient
Old Records: Reviewed
[2025-01-28 16:43] LABS: Glucose - Point of Care 133 mg/dl (70-99)
[2025-01-28] MEDS: NOVOLOG FLEXPEN-MODERATE RESISTANCE SC (16:55)
[2025-01-28] MEDS: SENOKOT 17.2 MG PO (19:52)
[2025-01-28] MEDS: COLACE 100 MG PO (19:52)
[2025-01-28 21:22] LABS: Glucose - Point of Care 277 mg/dl (70-99)
[2025-01-28] MEDS: CRESTOR 20 MG PO (21:48)
[2025-01-28] MEDS: MELATONIN 3 MG PO (21:48)
[2025-01-28 23:21] VITALS: BP 126/58
[2025-01-29] VITALS (11 sets, daily range): BP systolic 99–145; BP diastolic 46–85
[2025-01-29] MEDS: MERREM 500 MG IV ×4 (03:36→22:49)
[2025-01-29] MEDS: STERILE WATER FOR INJECTION 10 ML IV ×4 (03:37→22:49)
[2025-01-29] MEDS: VANCOCIN 535 MG IV (05:38)
[2025-01-29 05:44] LABS: Hematocrit 26.3 % (39.0-52.0); Hemoglobin 8.4 g/dL (13.0-18.0); Mean Corp Hgb Conc. 31.9 g/dL (33.0-37.0); Mean Corpuscular Hgb 24.8 pg (27.0-31.0); Mean Corpuscular Volume 77.6 fL (80.0-94.0); Platelet Count 391 10^3/uL (130-400); Red Blood Cell Count 3.39 10^6/uL (4.70-6.10); Red Cell Dist. Width 19.2 % (11.5-14.5); White Blood Cell Count 7.8 10^3/uL (4.8-10.8)
[2025-01-29] MEDS: PERIDEX 0.12% ORAL RINSE 15 ML PO (05:59)
[2025-01-29] MEDS: BACTROBAN 2% OINTMENT 1 APPLIC NASAL (06:00)
[2025-01-29 06:06] LABS: ALT (SGPT) 38 U/L (0-50); AST (SGOT) 20 U/L (17-59); Albumin 2.3 g/dl (3.5-5.0); Alkaline Phosphatase 103 U/L (38-126); Blood Urea Nitrogen 24 mg/dl (9-20); Calcium 8.1 mg/dl (8.4-10.2); Carbon Dioxide 32 mmol/L (22-30); Chloride 99 mmol/L (98-107); Direct Bilirubin 0.2 mg/dl (0.0-0.4); Estimated Creatinine Clearance 110 ml/min; Glucose 247 mg/dl (70-99); Potassium 5.1 mmol/L (3.5-5.1); Sodium 134 mmol/L (135-145); Total Bilirubin 0.4 mg/dl (0.2-1.3); Total Protein 5.5 g/dl (6.3-8.2); eGFR > 60.00
[2025-01-29 08:05] LABS: Glucose - Point of Care 220 mg/dl (70-99)
--- NOTE | 2025-01-29 08:23 | PHA.VAN.FU ---
Vancomycin Assessment / Plan
- Assessment
Renal Function: Stable (0.6)
WBC's are: WNL (7.8)
In the past 24 hrs, patient has been: Afebrile
Concomitant Antimicrobials: Meropenem, Vancomycin
- Dosing Plan
Continue: Vanco 1750mg Q24H
- Monitoring Plan
No level(s) ordered at this time: Consider in the next few days
- Follow Up
Pharmacy will continue to follow.
Vancomycin Follow UP
- -
Patient Age: 79
Patient Sex: Male
Vancomycin Day #: 7
Indication: [facility]
Requesting Provider: Dr. Hale / Zac
Pertinent Antimicrobial Allergies:
NKDA
Height / Weight:
Height 5 ft 11 in
Actual Weight 79 kg
IBW in k.3
- Vital Signs / Lab Results
Temp Pulse Resp BP Pulse Ox
98.3 F 64 18 145/66 94
01/29/25 07:00 01/29/25 07:00 01/29/25 07:00 01/29/25 07:00 01/29/25 07:00
Lab Results - Hematology
01/27/25 01/28/25 01/29/25
07:58 05:43 05:36
WBC 10.0 8.2 7.8
Lab Results - Chemistry
01/26/25 01/27/25 01/28/25
07:24 07:58 05:43
BUN 24 H 19 23 H
Creatinine 0.7 0.6 L 0.6 L
Estimated Creat Clear 94 110 110
Albumin 2.4 L
01/29/25
05:36
BUN 24 H
Creatinine 0.6 L
Estimated Creat Clear 110
Albumin 2.3 L
Microbiology Results
01/24/25 12:14 Blood Culture - Preliminary
Blood/Venous No Growth in 4 days- Final report to follow
01/24/25 11:39 Blood Culture - Preliminary
Blood/Venous No Growth in 4 days- Final report to follow
01/25/25 07:05 Blood Culture - Preliminary
Blood/Venous Staph aureus MRSA
Gram Stain - Preliminary
Therapeutic Drug Monitoring
Vancomycin Peak 20.9 ug/ml (18-26) 01/27/25 10:10
Vancomycin Trough 10.6 ug/ml (5-20) 01/28/25 05:43
[2025-01-29] MEDS: VISBIOME 2 CAP PO (08:30)
[2025-01-29] MEDS: FIRVANQ 125 MG PO ×2 (08:30→21:11)
[2025-01-29] MEDS: FLORASTOR 500 MG PO (08:30)
[2025-01-29] MEDS: VITAMIN D3 (cholecalciferol) 25 MCG PO (08:30)
[2025-01-29] MEDS: NOVOLOG FLEXPEN-MODERATE RESISTANCE SC ×3 (08:30→18:08)
[2025-01-29] MEDS: FLOMAX 0.4 MG PO (08:30)
[2025-01-29] MEDS: HEPARIN 5000 UNITS SC ×2 (08:31→18:06)
[2025-01-29] MEDS: LOW STRENGTH ASPIRIN 81 MG PO (08:31)
[2025-01-29] MEDS: PRANDIN PO ×2 (08:31→12:20)
[2025-01-29] MEDS: GLUCOPHAGE PO (08:31)
[2025-01-29] MEDS: MIRALAX PO (09:05)
[2025-01-29] MEDS: SENOKOT PO ×2 (09:05→21:38)
[2025-01-29] MEDS: LANTUS 0.18 UNITS SC (09:05)
[2025-01-29] MEDS: COLACE PO ×2 (09:05→21:38)
--- NOTE | 2025-01-29 11:01 | W.PN.HOSP.TC ---
Today's Communication/Plan
-
For OR
Assessment / Plan
Assessment / Plan
79-year-old man with nonhealing right foot wound urinary symptoms. He was hospitalized in April 2020 for with right heel wound/osteomyelitis underwent debridement and right SFA to peroneal bypass. He also received 6 weeks of IV vancomycin and
meropenem for ESBL E. coli. Subsequent arteriogram in November 2024 showed patent vessels. He goes to [facility] for wound care. He was recently seen at [place] wound VAC was removed.
CVS: S1-S2 normal
Chest: CTA B/L
Abdomen: Soft, NT / Bowel sounds present
Extremities: No edema, right heel ulcer with mild discharge
# Diabetic foot infection
Nonhealing right ulcer/osteomyelitis
Sepsis secondary to MRSA bacteremia
IV meropenem and vancomycin
Blood cultures from 01/25/2025 with MRSA therefore ordered more cultures today.
Echo 01/25/2025-normal biventricular size and systolic function without regional wall motion abnormality. Mild aortic stenosis. No significant change from 02/20/2023
ID and podiatry evaluations appreciated
# UTI history of enlarged prostate bladder scan and straight cath as needed. CX neg
# Mild hyperkalemia- Better Lokelma. Low potassium diet. Unclear why potassium is running high.
# ASCVD/PAD
Status post bilateral lower extremity bypass surgeries angioplasty and stent in the past.
Hold Xarelto and continue aspirin pending intervention/procedures
BKA planned for tomorrow
Pt says he has no H/O Chest pain and he can go a flight of stairs with no chest pain or SOB.
Continue statin
Cardiology evaluation for risk stratification appreciated
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
Accu-Cheks and sliding scale coverage
Patient is on Xigduo , Lantus 30 units daily, Prandin 1 mg 3 times daily as outpatient
Will give Lantus 18 units today. Increase to 30 units again tomorrow
Restarted metformin and Prandin . Holding the dose this morning as n.p.o.
Diet was liberalized per patient request yesterday and he did order pasta and and turkey sugars were elevated last night. Patient is aware that we will go on a restricted diet once n.p.o. is taken away.
# Acute on chronic microcytic anemia
Transfused 1 unit of packed red blood cells in the light of upcoming surgery
Hemoglobin better
# History of intracranial/subdural hematoma
# Cognitive dysfunction
# H/O C Diff- On PO Vanco Prophylaxis.
# Enlarged prostate, Microscopic hematuria-ultrasound of the urinary bladder showed 6 X 1.8 X 1.7 cm lobulated echogenic focus. May represent clot or possible mass. No hydronephrosis or sonographic evidence of suspicious renal lesion.
Sees Joe Beauchamp as OP.
Urology eval requested. Outpatient cystoscopy
# Abnormal LFTs likely secondary to sepsis-improving
# Vitamin D deficiency-replace
# DVT prophylaxis-subcutaneous heparin
# Full code
D/W RN
Anticipated Discharge: > 48 hours
Subjective/Interval History
-
Date of Service: January 29, 2025
Objective Data
-
Labs:
Laboratory Results
01/29/25
05:36
WBC 7.8
Hgb 8.4 L
Hct 26.3 L
Plt Count 391
Sodium 134 L
Potassium 5.1
Chloride 99
Carbon Dioxide 32 H
BUN 24 H
Creatinine 0.6 L
Glucose 247 H
Calcium 8.1 L
Total Bilirubin 0.4
AST 20
ALT 38
Alkaline Phosphatase 103
Vital Signs:
Vital Signs
Temp Pulse Resp BP Pulse Ox
98.3 F 64 18 145/66 94
01/29/25 07:00 01/29/25 07:00 01/29/25 07:00 01/29/25 07:00 01/29/25 07:00
I&O
01/28/25 01/29/25 01/30/25
06:59 06:59 06:59
Intake Total 740 / 740 2240 / 2240
Output Total 1100 / 1100 2300 / 2300
Balance -360 / -360 -60 / -60
--- NOTE | 2025-01-29 11:09 | PTOTSP ---
Reviewed chart and noted plan for OR today for right BKA. Will hold PT at this time. Will need new orders for PT and OT post-op when stable to begin activity.
--- NOTE | 2025-01-29 11:51 | W.PN.ID1 ---
Date of Service
Date of Service: January 29, 2025
Today's Communication
Continue antibiotics. See below�
Assessment / Plan
Suspected complicated urinary tract infection
Leukocytosis
Recent history of C. difficile
Chronic right heel wound
- hx osteomyelitis; hx 6 wk IV abx x 2 rounds
- followed by [facility]
MRSA bacteremia (01/22, 01/25)
- urine vs (R) foot source
DM
Diabetic neuropathy,
HLD
PAD
Subdural hematoma
Recommendations:
Continue vancomycin.
Continue meropenem.
Repeat blood culture on 01/25 positive.
Echocardiogram without evidence of vegetation although mitral valve leaflets and aortic valve leaflets noted to be thickened.
Continue prophylactic oral vancomycin given recent history of C. difficile.
For right BKA later this week. Following amputation, further meropenem can be discontinued.
����������������������������������������������������������
Chief Complaint
-: Bacteremia
Subjective / Review of Systems
Plan patient seen and examined. Overall feels well. Denies pain. Reports he will be going for right BKA later today.
Review of Systems: No Fever and No Chills
Vital Signs / Physical Exam
Vital Signs
Vital Signs
Temp Pulse Resp BP Pulse Ox
98.3 F 64 18 145/66 94
01/29/25 07:00 01/29/25 07:00 01/29/25 07:00 01/29/25 07:00 01/29/25 07:00
Physical Exam
Constitutional: No Acute Distress, Comfortable, Chronically Ill and Non-toxic
Eyes: Sclera Anicteric
Cardiovascular: S1/S2; Negative S3/S4
Pulmonary: Clear and Non Labored
Gastrointestinal: Soft and Non Tender
Extremities: Edema
Wound: Other (Right foot dressed. No erythema extending up the leg.)
Neurological: Awake and Alert
Psychological: Calm
Objective Data
Lab Data
Lab Results
01/29/25 05:36
01/29/25 05:36
Estimated Creat Clear 110 ml/min 01/29/25 05:36
Lactic Acid 1.1 mmol/L (0.7-2.0) 01/23/25 01:37
Total Bilirubin 0.4 mg/dl (0.2-1.3) 01/29/25 05:36
AST 20 U/L (17-59) 01/29/25 05:36
ALT 38 U/L (0-50) 01/29/25 05:36
Alkaline Phosphatase 103 U/L (38-126) 01/29/25 05:36
Most recent labs reviewed.
Micro Results:
01/24/25 11:39 Blood Culture - Final
Blood/Venous No Growth - Final Report
01/28/25 14:03 Blood Culture - Pending
Blood/Venous
01/28/25 12:33 Blood Culture - Pending
Blood/Venous
01/24/25 12:14 Blood Culture - Preliminary
Blood/Venous No Growth in 4 days- Final report to follow
01/25/25 07:05 Blood Culture - Preliminary
Blood/Venous Staph aureus MRSA
Gram Stain - Preliminary
01/22/25 23:15 Blood Culture - Preliminary
Blood/Venous Staph aureus MRSA
Gram Stain - Preliminary
01/22/25 23:15 Blood Culture - Preliminary
Blood/Venous Staph aureus MRSA
Gram Stain - Preliminary
01/22/25 23:15 Urine Culture - Final
Urine
Imaging:
01/25/25 ECHO (TTE): Normal biventricular size and systolic function. No regional wall motion abnormality. Mild aortic stenosis. EF approximately 65%. Thickened mitral valve leaflets. Thickened aortic valve leaflets with restricted motion. No
intracardiac mass or thrombus formation seen. Please see full dictation for additional detail.
01/23/2025 CXR (2 view): No focal consolidation, pleural effusion or pneumothorax noted. Please see full dictation for additional detail.
--- NOTE | 2025-01-29 11:52 | W.PN.UPDATE ---
Update Note
Progress Note Update
patient seen chart reviewed. spoke with nursing. mr lennon is maintaining his very good attitude about the surgery . while he is anxious he continues to believe he is making the right decision and has the strength to persevere with treatment
afterwards. prayer has also comforted him at this time. will continue to visit w him after surgery offering support.
[2025-01-29 12:03] LABS: Glucose - Point of Care 148 mg/dl (70-99)
[2025-01-29] MEDS: LR 1000 IV (12:17)
[2025-01-29 15:11] LABS: Glucose - Point of Care 97 mg/dl (70-99)
[2025-01-29 15:45] LABS: Urine Albumin 3+ (Neg - Trace); Urine Bilirubin Negative (Negative); Urine Color Red; Urine Glucose Negative (Negative); Urine Ketone 1+ (Negative); Urine Leukocyte 3+ (Negative); Urine Nitrite Negative (Negative); Urine Occult Blood 4+ (Negative); Urine Urobilinogen Negative (Neg - 1+); Urine pH 6.5 (5.0-9.0)
[2025-01-29 15:51] LABS: Urine Character Bloody (Clear)
[2025-01-29 16:01] LABS: Urine Squamous Cell 0-2 /LPF (Few)
[2025-01-29 16:03] LABS: Urine White Cell >100 /HPF (0-5)
--- NOTE | 2025-01-29 16:20 | W.SUR.POST ---
Surgical Immediate Post Op
Note
Pre Op Diagnosis: Peripheral arterial disease, Chronic nonhealing right heel wound with exposed calcaneus and osteomyelitis
Post Op Diagnosis: Peripheral arterial disease, Chronic nonhealing right heel wound with exposed calcaneus and osteomyelitis
Procedure Performed: Right below the knee amputation
Primary Surgeon: Medardo Frey III, MD
export sales assistant: LEATHA Hardy and Kimmy ZHANG
Anesthesia: GETA
Estimated Blood Loss: 150 mL
Fluids: See anesthesia flowsheet
Drains/Shunts: N/A
Specimens/Cultures: Right lower extremity
Doppler/Duplex/Angio (Y/N): No
Complications: None
Operative Findings: Successful amputation of right below the knee
--- NOTE | 2025-01-29 16:21 | OR.RPT ---
Operative Report
Operative Report
Date of Operation: 01/29/2025
Pre Op Diagnosis: Large nonhealing right heel wound with osteomyelitis
Post Op Diagnosis: Large nonhealing right heel wound with osteomyelitis
Procedure: Right lower extremity amputation below the knee
Surgeon: Medardo Frey III, MD
Assistants: LEATHA Isidro, LEATHA Morfin (assisted with all portions of the procedure start to finish)
Anesthesia: General
Complications: None
Estimated Blood Loss: 150 cc
History and Indications for Procedure: 79-year-old male with previous right lower extremity revascularization procedures. He has a right foot deformity and a large nonhealing right heel wound with exposed calcaneus and osteomyelitis. He was
brought to the operating room for lower extremity amputation below the knee
Procedure in Detail: Romario Hernandez was correctly identified and placed supine on the operating table. After adequate induction of anesthesia the right leg was prepped and draped in the usual sterile fashion. A timeout procedure was performed
with the nursing and anesthesia staff confirming the patient's identity as well as the nature and laterality of the procedure. A transverse incision was made approximately 1 hands-breadth below the tibial tuberosity and carried medially and
laterally to the longterm points on the calf. The incision was then turned along the long axis of the calf and carried down towards the ankle to create the posterior flap. Electrocautery was used on the subcutaneous tissue and muscle of the anterior
and lateral tissue. The anterior tibial artery and vein were identified and then ligated and divided between ties. The tibia and fibula were each circumferentially exposed. A periosteal elevator was used on each to elevate the periosteum more
proximally. The tibia was then divided with a saw. The anterior surface was beveled and smoothed with the saw. The fibula was then divided more proximally than the tibia and all edges were smoothed with the assistance of a rasp. The amputation was
then completed along the posterior flap. The leg was then passed off to the back table to be sent to pathology. Hemostasis was achieved along the posterior flap using a combination of electrocautery and interrupted silk suture ligatures. Once
hemostasis was achieved the wound was irrigated with warm saline solution. The wound was then closed in multiple layers. Sterile dressings were applied.
The patient tolerated the procedure well and was taken to the PACU in stable condition.
Attestation: I was present and responsible for the entire procedure
Signed:
Medardo Frey III, MD
Vascular Surgery
[facility]
[2025-01-29 16:35] LABS: Glucose - Point of Care 119 mg/dl (70-99)
[2025-01-29] MEDS: DILAUDID PCA 30 IV (16:55)
[2025-01-29] MEDS: GLUCOPHAGE 500 MG PO (18:07)
[2025-01-29] MEDS: PRANDIN 1 MG PO (18:07)
[2025-01-29 18:20] LABS: Glucose - Point of Care 164 mg/dl (70-99)
[2025-01-29 20:38] LABS: Hematocrit 27.6 % (39.0-52.0); Hemoglobin 8.7 g/dL (13.0-18.0); Mean Corp Hgb Conc. 31.5 g/dL (33.0-37.0); Mean Corpuscular Hgb 24.4 pg (27.0-31.0); Mean Corpuscular Volume 77.3 fL (80.0-94.0); Mean Platelet Volume 8.6 fL (7.4-10.4); Platelet Count 328 10^3/uL (130-400); Red Blood Cell Count 3.57 10^6/uL (4.70-6.10); Red Cell Dist. Width 18.9 % (11.5-14.5); White Blood Cell Count 6.7 10^3/uL (4.8-10.8)
[2025-01-29] MEDS: MELATONIN 3 MG PO (21:11)
[2025-01-29] MEDS: CRESTOR 20 MG PO (21:11)
[2025-01-29 21:24] LABS: Glucose - Point of Care 294 mg/dl (70-99)
[2025-01-30] MEDS: HEPARIN 5000 UNITS SC ×4 (00:13→23:42)
[2025-01-30 03:05] VITALS: BP 92/53
[2025-01-30] MEDS: STERILE WATER FOR INJECTION 10 ML IV (04:08)
[2025-01-30] MEDS: MERREM 500 MG IV (04:09)
[2025-01-30] MEDS: LR IV (04:29)
[2025-01-30] MEDS: VANCOCIN 535 MG IV (05:15)
[2025-01-30 06:52] LABS: Hematocrit 25.2 % (39.0-52.0); Mean Corp Hgb Conc. 31.7 g/dL (33.0-37.0); Mean Corpuscular Hgb 24.4 pg (27.0-31.0); Mean Corpuscular Volume 76.8 fL (80.0-94.0); Mean Platelet Volume 9.2 fL (7.4-10.4); Platelet Count 361 10^3/uL (130-400); Red Blood Cell Count 3.28 10^6/uL (4.70-6.10); White Blood Cell Count 9.4 10^3/uL (4.8-10.8)
[2025-01-30 07:07] LABS: Blood Urea Nitrogen 27 mg/dl (9-20); Calcium 7.7 mg/dl (8.4-10.2); Carbon Dioxide 29 mmol/L (22-30); Chloride 102 mmol/L (98-107); Estimated Creatinine Clearance 94 ml/min; Glucose 225 mg/dl (70-99); Potassium 4.7 mmol/L (3.5-5.1); Sodium 135 mmol/L (135-145); eGFR > 60.00
[2025-01-30 07:37] LABS: Glucose - Point of Care 245 mg/dl (70-99)
[2025-01-30 07:40] VITALS: BP 125/66
[2025-01-30] MEDS: PRANDIN 1 MG PO ×3 (08:28→17:34)
[2025-01-30] MEDS: FIRVANQ 125 MG PO ×2 (08:28→20:46)
[2025-01-30] MEDS: VISBIOME 2 CAP PO (08:28)
[2025-01-30] MEDS: GLUCOPHAGE 500 MG PO ×2 (08:28→17:34)
[2025-01-30] MEDS: COLACE 100 MG PO ×2 (08:28→20:47)
[2025-01-30] MEDS: FLORASTOR 500 MG PO (08:28)
[2025-01-30] MEDS: LOW STRENGTH ASPIRIN 81 MG PO (08:29)
[2025-01-30] MEDS: LANTUS 0.3 UNITS SC (08:29)
[2025-01-30] MEDS: SENOKOT 17.2 MG PO ×2 (08:29→20:47)
[2025-01-30] MEDS: FLOMAX 0.4 MG PO (08:29)
[2025-01-30] MEDS: VITAMIN D3 (cholecalciferol) 25 MCG PO (08:29)
[2025-01-30] MEDS: NOVOLOG FLEXPEN-MODERATE RESISTANCE 3 UNITS SC ×2 (08:30→12:18)
[2025-01-30] MEDS: MIRALAX 17 GRAMS PO (08:36)
--- NOTE | 2025-01-30 09:07 | W.PN.ID1 ---
Date of Service
Date of Service: January 30, 2025
Today's Communication
DC meropenem.
Continue IV and enteric vancomycin.
Assessment / Plan
Suspected complicated urinary tract infection
Leukocytosis
Recent history of C. difficile
Chronic right heel wound
- hx osteomyelitis; hx 6 wk IV abx x 2 rounds
- followed by [facility]
MRSA bacteremia (01/22, 01/25)
- urine vs (R) foot source
DM
Diabetic neuropathy,
HLD
PAD
Subdural hematoma
Recommendations:
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
DC further meropenem.
Continue vancomycin IV
Repeat blood culture on 01/25 positive.
01/28 bcx x 2 neg to date
Echocardiogram without evidence of vegetation although mitral valve leaflets and aortic valve leaflets noted to be thickened.
Continue prophylactic oral vancomycin given recent history of C. difficile.
����������������������������������������������������������
Chief Complaint
-: Bacteremia
Subjective / Review of Systems
No significant post-op pain.
Vital Signs / Physical Exam
Vital Signs
Vital Signs
Temp Pulse Resp BP Pulse Ox
97.5 F 64 16 125/66 98
01/30/25 07:40 01/30/25 07:40 01/30/25 07:40 01/30/25 07:40 01/30/25 07:40
Physical Exam
Constitutional: No Acute Distress, Comfortable, Chronically Ill and Non-toxic
Eyes: Sclera Anicteric
Cardiovascular: S1/S2; Negative S3/S4
Pulmonary: Clear and Non Labored
Gastrointestinal: Soft and Non Tender
Extremities: Edema
Wound: Other (Right BKA dressing dry. )
Neurological: AO x 3
Objective Data
Lab Data
Lab Results
01/30/25 06:25
01/30/25 06:25
Estimated Creat Clear 94 ml/min 01/30/25 06:25
Lactic Acid 1.1 mmol/L (0.7-2.0) 01/23/25 01:37
Total Bilirubin 0.4 mg/dl (0.2-1.3) 01/29/25 05:36
AST 20 U/L (17-59) 01/29/25 05:36
ALT 38 U/L (0-50) 01/29/25 05:36
Alkaline Phosphatase 103 U/L (38-126) 01/29/25 05:36
Most recent labs reviewed.
Micro Results:
01/29/25 15:20 Urine Culture - Pending
Urine
01/28/25 14:03 Blood Culture - Preliminary
Blood/Venous No Growth in 24 hours- Final report to follow
01/28/25 12:33 Blood Culture - Preliminary
Blood/Venous No Growth in 24 hours- Final report to follow
01/24/25 12:14 Blood Culture - Final
Blood/Venous No Growth - Final Report
01/24/25 11:39 Blood Culture - Final
Blood/Venous No Growth - Final Report
01/25/25 07:05 Blood Culture - Preliminary
Blood/Venous Staph aureus MRSA
Gram Stain - Preliminary
01/22/25 23:15 Blood Culture - Preliminary
Blood/Venous Staph aureus MRSA
Gram Stain - Preliminary
01/22/25 23:15 Blood Culture - Preliminary
Blood/Venous Staph aureus MRSA
Gram Stain - Preliminary
01/22/25 23:15 Urine Culture - Final
Urine
Imaging:
01/25/25 ECHO (TTE): Normal biventricular size and systolic function. No regional wall motion abnormality. Mild aortic stenosis. EF approximately 65%. Thickened mitral valve leaflets. Thickened aortic valve leaflets with restricted motion. No
intracardiac mass or thrombus formation seen. Please see full dictation for additional detail.
01/23/2025 CXR (2 view): No focal consolidation, pleural effusion or pneumothorax noted. Please see full dictation for additional detail.
[2025-01-30] MEDS: FARXIGA 10 MG PO (10:50)
--- NOTE | 2025-01-30 11:03 | PHA.VAN.FU ---
Vancomycin Assessment / Plan
- Assessment
Renal Function: Stable
WBC's are: Trending Up
In the past 24 hrs, patient has been: Afebrile
- Dosing Plan
Continue: Vanc 1750mg Q24H
- Monitoring Plan
Peak Level: 01/31 at 0930
Trough Level: 02/01 at 0530
- Follow Up
Pharmacy will continue to follow.
Vancomycin Follow UP
- -
Patient Age: 79
Patient Sex: Male
Vancomycin Day #: 8
Indication: Bone And Joint
Requesting Provider: Dr. Hale / Zac
Pertinent Antimicrobial Allergies:
NKDA
Height / Weight:
Height 5 ft 11 in
Actual Weight 79 kg
IBW in k.3
- Vital Signs / Lab Results
Temp Pulse Resp BP Pulse Ox
97.5 F 64 16 125/66 98
01/30/25 07:40 01/30/25 07:40 01/30/25 07:40 01/30/25 07:40 01/30/25 07:40
Lab Results - Hematology
01/28/25 01/29/25 01/29/25
05:43 05:36 20:29
WBC 8.2 7.8 6.7
01/30/25
06:25
WBC 9.4
Lab Results - Chemistry
01/28/25 01/29/25 01/30/25
05:43 05:36 06:25
BUN 23 H 24 H 27 H
Creatinine 0.6 L 0.6 L 0.7
Estimated Creat Clear 110 110 94
Albumin 2.3 L
Lab Results - Urine
01/29/25
15:20
Urine Nitrite Negative
Urine Nitrite (Reflex) Cancelled
Ur Leukocyte Esterase 3+ A
Leukocyte Esterase Rfl Cancelled
Urine WBC >100 A
Ur Squamous Epith Cells 0-2
Urine Bacteria
Microbiology Results
01/28/25 14:03 Blood Culture - Preliminary
Blood/Venous No Growth in 24 hours- Final report to follow
01/28/25 12:33 Blood Culture - Preliminary
Blood/Venous No Growth in 24 hours- Final report to follow
01/24/25 12:14 Blood Culture - Final
Blood/Venous No Growth - Final Report
01/24/25 11:39 Blood Culture - Final
Blood/Venous No Growth - Final Report
01/25/25 07:05 Blood Culture - Preliminary
Blood/Venous Staph aureus MRSA
Gram Stain - Preliminary
Therapeutic Drug Monitoring
Vancomycin Peak 20.9 ug/ml (18-26) 01/27/25 10:10
Vancomycin Trough 10.6 ug/ml (5-20) 01/28/25 05:43
--- NOTE | 2025-01-30 11:25 | W.PN.HOSP.TC ---
Today's Communication/Plan
-
Continue vancomycin
Start PT when okay with vascular
Restart Xarelto when okay with vascular
STEAM HOIST OPERATOR-defer to vascular
Patient prefers to go to [facility] rehab-case management to arrange
Assessment / Plan
Assessment / Plan
79-year-old man with nonhealing right foot wound urinary symptoms. He was hospitalized in April 2020 for with right heel wound/osteomyelitis underwent debridement and right SFA to peroneal bypass. He also received 6 weeks of IV vancomycin and
meropenem for ESBL E. coli. Subsequent arteriogram in November 2024 showed patent vessels. He goes to [facility] for wound care. He was recently seen at [place] wound VAC was removed.
CVS: S1-S2 normal
Chest: CTA B/L
Abdomen: Soft, NT / Bowel sounds present
Extremities: No edema left, right BKA bandaged
# Diabetic foot infection
Nonhealing right ulcer/osteomyelitis
Sepsis secondary to MRSA bacteremia
IV meropenem discontinued
Continue vancomycin
Probably can stop meropenem now and continue with vancomycin
Blood cultures from 01/25/2025 with MRSA
Blood cultures from 01/28/2025-negative so far
Echo 01/25/2025-normal biventricular size and systolic function without regional wall motion abnormality. Mild aortic stenosis. No significant change from 02/20/2023
ID and podiatry evaluations appreciated
# ASCVD/PAD
Status post bilateral lower extremity bypass surgeries angioplasty and stent in the past.
Status post right BKA on 01/29/2025
Continue statin, aspirin
STEAM HOIST OPERATOR for pain control per vascular
Restart Xarelto when okay with vascular
# Mild hypoxic respiratory insufficiency secondary to postop state and atelectasis. Wean oxygen as tolerated
# UTI history of enlarged prostate bladder scan and straight cath as needed. CX neg
# Mild hyperkalemia- Better Lokelma. If potassium goes high again will need low potassium diet to be restarted
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
Accu-Cheks and sliding scale coverage
Patient is on Xigduo , Lantus 30 units daily, Prandin 1 mg 3 times daily as outpatient
Lantus 30 units, metformin and Prandin , Farxiga plus sliding scale ordered
Blood sugar was stable until dinnertime and was high. Patient stated that since he did not eat all day he ordered 2 portions of rice and salmon for dinner
We discussed about need for strict blood sugar control
# Acute on chronic microcytic anemia
Transfused 1 unit of packed red blood cells this admission
Hemoglobin 8 today
# History of intracranial/subdural hematoma
# Cognitive dysfunction
# H/O C Diff- On PO Vanco Prophylaxis.
# Enlarged prostate, Microscopic hematuria-ultrasound of the urinary bladder showed 6 X 1.8 X 1.7 cm lobulated echogenic focus. May represent clot or possible mass. No hydronephrosis or sonographic evidence of suspicious renal lesion.
Sees Joe Beauchamp as OP.
Urology eval requested. Outpatient cystoscopy
# Abnormal LFTs likely secondary to sepsis-improving
# Vitamin D deficiency-replace
# DVT prophylaxis-subcutaneous heparin
# Full code
D/W RN
Anticipated Discharge: > 48 hours
Subjective/Interval History
-
Date of Service: January 30, 2025
Objective Data
-
Labs:
Laboratory Results
01/30/25
06:25
WBC 9.4
Hgb 8.0 L
Hct 25.2 L
Plt Count 361
Sodium 135
Potassium 4.7
Chloride 102
Carbon Dioxide 29
BUN 27 H
Creatinine 0.7
Glucose 225 H
Calcium 7.7 L
Vital Signs:
Vital Signs
Temp Pulse Resp BP Pulse Ox
97.5 F 64 16 125/66 98
01/30/25 07:40 01/30/25 07:40 01/30/25 07:40 01/30/25 07:40 01/30/25 07:40
I&O
01/29/25 01/30/25 01/31/25
06:59 06:59 06:59
Intake Total 2240 / 2240 100 / 100
Output Total 2300 / 2300 1250 / 1250
Balance -60 / -60 -1150 / -1150
[2025-01-30 11:30] VITALS: BP 121/49
[2025-01-30 12:19] LABS: Glucose - Point of Care 213 mg/dl (70-99)
--- NOTE | 2025-01-30 13:40 | CM ---
Chart reviewed.
Pt had BKA yesterday
PT/OT pending
Requesting referral to [facility] rehab
Referral to be made when PT/OT recs obtained
Plan - anticipate acute vs snf when medically
--- NOTE | 2025-01-30 15:03 | W.PN.UPDATE ---
Update Note
Progress Note Update
patient seen chart reviewed . at bedside. patient is relieved surgery is over and feels very positively so far about outcome. some pain but tolerable with medication. patient is eager to begin the journey of rehab. he is hoping for [facility]'s.
seems very supportive. psych will sign off at this point.
[2025-01-30 15:40] VITALS: BP 135/69
--- NOTE | 2025-01-30 16:17 | W.PN.VS ---
Today's Communication / Plan
-
See plan below for today 01/30/2025.
Assessment/Plan
-
Postoperative day #1 right BKA.
� Doing well overall. Pain controlled.
� Out of bed to chair okay.
� Likely will remove dressing tomorrow or day after.
-
Total Time Spent with Patient (in minutes): 7
Subjective Data
-
Date of Service: January 30, 2025
No specific complaints. Pain controlled at amputation site.
Objective Data
-
Vital Signs
Temp Pulse Resp BP Pulse Ox
98.1 F 52 16 121/49 97
01/30/25 11:30 01/30/25 11:30 01/30/25 11:30 01/30/25 11:30 01/30/25 11:30
Intake and Output
01/29/25 01/30/25 01/31/25
06:59 06:59 06:59
Intake Total 2240 / 2240 100 / 100
Output Total 2300 / 2300 1250 / 1250
Balance -60 / -60 -1150 / -1150
Intake:
Oral fluids 1740 / 1740
IV fluids (Total) 500 / 500 100 / 100
Normosol 100 / 100
Output:
Urine, Frey 1250 / 1250
Urine, Voided 2300 / 2300
Other:
Number of approximated MODERATE 6
amounts of urine
Number of unmeasured liquid
stools
Rectum 2
Lab Results
01/30/25 06:25
01/30/25 06:25
Calcium 7.7 mg/dl (8.4-10.2) L 01/30/25 06:25
Magnesium 1.9 mg/dl (1.6-2.3) 01/25/25 07:05
Total Bilirubin 0.4 mg/dl (0.2-1.3) 01/29/25 05:36
Direct Bilirubin 0.2 mg/dl (0.0-0.4) 01/29/25 05:36
AST 20 U/L (17-59) 01/29/25 05:36
ALT 38 U/L (0-50) 01/29/25 05:36
Alkaline Phosphatase 103 U/L (38-126) 01/29/25 05:36
Total Protein 5.5 g/dl (6.3-8.2) L 01/29/25 05:36
Albumin 2.3 g/dl (3.5-5.0) L 01/29/25 05:36
Physical Exam
-
Afebrile.
Awake and alert.
No acute distress.
Breathing is unlabored.
Right lower extremity BKA site dressing clean dry and intact. No obvious hematoma.
[2025-01-30 17:07] LABS: Glucose - Point of Care 132 mg/dl (70-99)
[2025-01-30] MEDS: NOVOLOG FLEXPEN-MODERATE RESISTANCE SC (17:34)
[2025-01-30] MEDS: NSS 1000 IV (18:37)
[2025-01-30 19:31] VITALS: BP 118/70
[2025-01-30 21:36] LABS: Glucose - Point of Care 162 mg/dl (70-99)
[2025-01-30 23:25] VITALS: BP 125/56
[2025-01-30] MEDS: CRESTOR 20 MG PO (23:42)
[2025-01-30] MEDS: MELATONIN 3 MG PO (23:42)
[2025-01-31 03:15] VITALS: BP 126/56
[2025-01-31] MEDS: VANCOCIN 535 MG IV (05:46)
[2025-01-31] MEDS: FLUSH (NSS) 2 FLUSH IV (05:47)
[2025-01-31 07:07] LABS: Glucose - Point of Care 154 mg/dl (70-99)
[2025-01-31 07:30] VITALS: BP 115/52
[2025-01-31] MEDS: NOVOLOG FLEXPEN-MODERATE RESISTANCE 1 UNITS SC ×2 (09:02→17:15)
[2025-01-31] MEDS: FARXIGA 10 MG PO (09:03)
[2025-01-31] MEDS: VISBIOME 2 CAP PO (09:03)
[2025-01-31] MEDS: MIRALAX 17 GRAMS PO (09:03)
[2025-01-31] MEDS: PRANDIN 1 MG PO ×3 (09:03→17:13)
[2025-01-31] MEDS: LANTUS 0.3 UNITS SC (09:03)
[2025-01-31] MEDS: FIRVANQ 125 MG PO ×2 (09:04→20:17)
[2025-01-31] MEDS: SENOKOT 17.2 MG PO (09:04)
[2025-01-31] MEDS: GLUCOPHAGE 500 MG PO ×2 (09:04→17:13)
[2025-01-31] MEDS: FLOMAX 0.4 MG PO (09:04)
[2025-01-31] MEDS: HEPARIN 5000 UNITS SC ×3 (09:04→23:02)
[2025-01-31] MEDS: FLORASTOR 500 MG PO (09:05)
[2025-01-31] MEDS: LOW STRENGTH ASPIRIN 81 MG PO (09:05)
[2025-01-31] MEDS: VITAMIN D3 (cholecalciferol) 25 MCG PO (09:05)
[2025-01-31] MEDS: COLACE 100 MG PO (09:05)
[2025-01-31 09:59] LABS: Hematocrit 26.5 % (39.0-52.0); Hemoglobin 8.2 g/dL (13.0-18.0); Mean Corp Hgb Conc. 30.9 g/dL (33.0-37.0); Mean Corpuscular Volume 77.7 fL (80.0-94.0); Platelet Count 354 10^3/uL (130-400); Red Blood Cell Count 3.41 10^6/uL (4.70-6.10); Red Cell Dist. Width 19.1 % (11.5-14.5); White Blood Cell Count 10.7 10^3/uL (4.8-10.8)
[2025-01-31 10:19] LABS: Vancomycin Peak 30.3 ug/ml (18-26)
--- NOTE | 2025-01-31 10:21 | W.PN.HOSP.TC ---
Today's Communication/Plan
-
OOB to chair with assistance
Discharge timing per Vascular.
Continue Vanco
Assessment / Plan
Assessment / Plan
79-year-old man with nonhealing right foot wound urinary symptoms. He was hospitalized in April 2020 for with right heel wound/osteomyelitis underwent debridement and right SFA to peroneal bypass. He also received 6 weeks of IV vancomycin and
meropenem for ESBL E. coli. Subsequent arteriogram in November 2024 showed patent vessels. He goes to [facility] for wound care. He was recently seen at [place] wound VAC was removed.
CVS: S1-S2 normal
Chest: CTA B/L
Abdomen: Soft, NT / Bowel sounds present
Extremities: No edema left, right BKA bandaged
# Diabetic foot infection
Nonhealing right ulcer/osteomyelitis
Sepsis secondary to MRSA bacteremia
IV meropenem discontinued
Continue vancomycin
Blood cultures from 01/25/2025 with MRSA
Blood cultures from 01/28/2025-negative so far
Echo 01/25/2025-normal biventricular size and systolic function without regional wall motion abnormality. Mild aortic stenosis. No significant change from 02/20/2023
# ASCVD/PAD
Status post bilateral lower extremity bypass surgeries angioplasty and stent in the past.
Status post right BKA on 01/29/2025
Continue statin, aspirin
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
Restart Xarelto when okay with vascular
# Mild hypoxic respiratory insufficiency secondary to postop state and atelectasis. Wean oxygen as tolerated
# UTI history of enlarged prostate bladder scan and straight cath as needed. CX neg
# Mild hyperkalemia- Better Lokelma. If potassium goes high again will need low potassium diet to be restarted
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
Accu-Cheks and sliding scale coverage
Patient is on Xigduo , Lantus 30 units daily, Prandin 1 mg 3 times daily as outpatient
Lantus 30 units, metformin and Prandin , Farxiga plus sliding scale ordered
Blood sugar was stable until dinnertime and was high. Patient stated that since he did not eat all day he ordered 2 portions of rice and salmon for dinner
We discussed about need for strict blood sugar control
# Acute on chronic microcytic anemia
Transfused 1 unit of packed red blood cells this admission
Hemoglobin 8 today
# History of intracranial/subdural hematoma
# Cognitive dysfunction
# H/O C Diff- On PO Vanco Prophylaxis.
# Enlarged prostate, Microscopic hematuria-ultrasound of the urinary bladder showed 6 X 1.8 X 1.7 cm lobulated echogenic focus. May represent clot or possible mass. No hydronephrosis or sonographic evidence of suspicious renal lesion.
Sees Joe Beaucahmp as OP.
Urology eval requested. Outpatient cystoscopy
# Abnormal LFTs likely secondary to sepsis-improved
# Vitamin D deficiency-replace
# DVT prophylaxis-subcutaneous heparin
# Full code
D/W RN
D/W Vascular
Anticipated Discharge: 24 - 48 hours
Subjective/Interval History
-
Date of Service: January 31, 2025
Objective Data
-
Labs:
Laboratory Results
01/31/25
09:42
WBC 10.7
Hgb 8.2 L
Hct 26.5 L
Plt Count 354
Sodium Pending
Potassium Pending
Chloride Pending
Carbon Dioxide Pending
BUN Pending
Creatinine Pending
Glucose Pending
Calcium Pending
Vital Signs:
Vital Signs
Temp Pulse Resp BP Pulse Ox
98.2 F 50 16 115/52 98
01/31/25 07:30 01/31/25 07:30 01/31/25 07:30 01/31/25 07:30 01/31/25 07:30
I&O
01/30/25 01/31/25 02/01/25
06:59 06:59 06:59
Intake Total 100 / 100 1495 / 1495
Output Total 1250 / 1250 2500 / 2500
Balance -1150 / -1150 -1005 / -1005
[2025-01-31 10:24] LABS: Blood Urea Nitrogen 26 mg/dl (9-20); Calcium 7.7 mg/dl (8.4-10.2); Carbon Dioxide 28 mmol/L (22-30); Chloride 100 mmol/L (98-107); Estimated Creatinine Clearance 82 ml/min; Glucose 145 mg/dl (70-99); Potassium 4.7 mmol/L (3.5-5.1); Sodium 135 mmol/L (135-145); eGFR > 60.00
--- NOTE | 2025-01-31 10:47 | W.PN.UPDATE ---
Update Note
Progress Note Update
Seen and examined. Patient now sitting up in chair comfortably. Overall doing okay. Pain controlled. Right below the knee amputation stump dressing is clean dry and intact. No blood staining. No overt hematoma. Plan/overall doing well.
PT/OT. Plan remove dressing tomorrow.
--- NOTE | 2025-01-31 11:32 | PHA.VAN.FU ---
Vancomycin Assessment / Plan
- Assessment
Renal Function: Stable
WBC's are: Trending Up
In the past 24 hrs, patient has been: Afebrile
- Dosing Plan
Continue: Vanc 1750mg IV Q24H
- Monitoring Plan
Peak Level: 30.3--01/31 at 0942
Trough Level: 02/01 at 0530
- Follow Up
Pharmacy will continue to follow.
Vancomycin Follow UP
- -
Patient Age: 79
Patient Sex: Male
Vancomycin Day #: 9
Indication: Bone And Joint
Requesting Provider: Dr. Hale / Zac
Pertinent Antimicrobial Allergies:
NKDA
Height / Weight:
Height 5 ft 11 in
Actual Weight 79 kg
IBW in k.3
- Vital Signs / Lab Results
Temp Pulse Resp BP Pulse Ox
98.2 F 50 16 115/52 98
01/31/25 07:30 01/31/25 07:30 01/31/25 07:30 01/31/25 07:30 01/31/25 07:30
Lab Results - Hematology
01/29/25 01/29/25 01/30/25
05:36 20:29 06:25
WBC 7.8 6.7 9.4
01/31/25
09:42
WBC 10.7
Lab Results - Chemistry
01/29/25 01/30/25 01/31/25
05:36 06:25 09:42
BUN 24 H 27 H 26 H
Creatinine 0.6 L 0.7 0.8
Estimated Creat Clear 110 94 82
Albumin 2.3 L
Microbiology Results
01/29/25 15:20 Urine Culture - Final
Urine Yeast
01/28/25 14:03 Blood Culture - Preliminary
Blood/Venous No Growth in 48 hours- Final report to follow
01/28/25 12:33 Blood Culture - Preliminary
Blood/Venous No Growth in 48 hours- Final report to follow
01/22/25 23:15 Blood Culture - Final
Blood/Venous Staph aureus MRSA
Gram Stain - Final
01/22/25 23:15 Blood Culture - Final
Blood/Venous Staph aureus MRSA
Gram Stain - Final
01/24/25 12:14 Blood Culture - Final
Blood/Venous No Growth - Final Report
01/24/25 11:39 Blood Culture - Final
Blood/Venous No Growth - Final Report
Therapeutic Drug Monitoring
Vancomycin Peak 30.3 ug/ml (18-26) H 01/31/25 09:42
Vancomycin Trough 10.6 ug/ml (5-20) 01/28/25 05:43
[2025-01-31 11:58] VITALS: BP 120/54; BP 126/50
[2025-01-31 12:26] LABS: Glucose - Point of Care 148 mg/dl (70-99)
[2025-01-31] MEDS: NOVOLOG FLEXPEN-MODERATE RESISTANCE SC (12:51)
[2025-01-31 15:20] VITALS: BP 123/56
[2025-01-31 17:10] LABS: Glucose - Point of Care 167 mg/dl (70-99)
[2025-01-31] MEDS: DILAUDID PCA 30 IV (17:15)
[2025-01-31] MEDS: COLACE PO (20:17)
[2025-01-31] MEDS: SENOKOT PO (20:17)
[2025-01-31] MEDS: D5/0.45%NACL 1000 IV (20:18)
[2025-01-31] MEDS: CRESTOR 20 MG PO (21:15)
[2025-01-31] MEDS: MELATONIN 3 MG PO (21:15)
[2025-01-31 22:06] LABS: Glucose - Point of Care 192 mg/dl (70-99)
[2025-01-31 23:35] VITALS: BP 123/55
[2025-02-01] VITALS (7 sets, daily range): BP systolic 118–138; BP diastolic 54–66; PULSE 42; O2SAT 99–100
[2025-02-01] MEDS: VANCOCIN 535 MG IV (06:08)
[2025-02-01] MEDS: FLUSH (NSS) 2 FLUSH IV (06:09)
[2025-02-01 06:37] LABS: Vancomycin Trough 15.5 ug/ml (5-20)
--- NOTE | 2025-02-01 07:39 | W.PN.VS ---
Addendum entered and electronically signed by Leobardo Morales MD 02/01/25 10:11:
Seen and examined with SNOW REMOVER Jason and ZEKE Dash. Agree with findings and plan as discussed and noted below. Dressing changed by us. Surgical site looks good.
Original Note:
Today's Communication / Plan
-
Patient seen and examined at bedside with Dr. Leobardo Morlaes, below plan reviewed with attending.
Assessment/Plan
-
Postoperative day #3 right BKA.
Transition from INTEGRATION AIDE to as needed oral pain medication
Continue physical therapy
Stump protector arriving today from [facility]
Follow-up placed in discharge instructions
Subjective Data
-
Date of Service: February 01, 2025
Patient seen and examined at bedside, offers no complaints and endorses postoperative pain is well-managed. Denies nausea, vomiting, fever, and chills. Reports he worked well with physical therapy and is eager and optimistic for neck step in his
recovery.
Objective Data
-
Vital Signs
Temp Pulse Resp BP Pulse Ox
98.4 F 69 18 124/64 98
02/01/25 07:30 02/01/25 07:30 02/01/25 07:30 02/01/25 07:30 02/01/25 07:30
Intake and Output
01/31/25 02/01/25 02/02/25
06:59 06:59 06:59
Intake Total 1495 / 1495 2275 / 2275
Output Total 2500 / 2500 1575 / 1575
Balance -1005 / -1005 700 / 700
Intake:
Oral fluids 780 / 780
IV fluids (Total) 960 / 960 960 / 960
IV piggybacks 535 / 535 535 / 535
Output:
Urine, Frey 1000 / 1000
Urine, Voided 1500 / 1500 1575 / 1575
Other:
Number of approximated MODERATE 2
amounts of urine
Number of approximated LARGE 1
amounts of urine
Lab Results
01/31/25 09:42
01/31/25 09:42
Calcium 7.7 mg/dl (8.4-10.2) L 01/31/25 09:42
Magnesium 2.0 mg/dl (1.6-2.3) 01/31/25 09:42
Total Bilirubin 0.4 mg/dl (0.2-1.3) 01/29/25 05:36
Direct Bilirubin 0.2 mg/dl (0.0-0.4) 01/29/25 05:36
AST 20 U/L (17-59) 01/29/25 05:36
ALT 38 U/L (0-50) 01/29/25 05:36
Alkaline Phosphatase 103 U/L (38-126) 01/29/25 05:36
Total Protein 5.5 g/dl (6.3-8.2) L 01/29/25 05:36
Albumin 2.3 g/dl (3.5-5.0) L 01/29/25 05:36
Physical Exam
-
Afebrile.
Awake and alert.
No acute distress.
Breathing is unlabored.
Right lower extremity BKA site CDI, staple lines well-approximated, no erythema, redressed with Johny wrap
[2025-02-01 07:43] LABS: Glucose - Point of Care 137 mg/dl (70-99)
[2025-02-01] MEDS: NOVOLOG FLEXPEN-MODERATE RESISTANCE SC ×3 (07:48→16:40)
--- NOTE | 2025-02-01 08:10 | PHA.VAN.FU ---
Vancomycin Assessment / Plan
- Assessment
Renal Function: Stable
WBC's are: WNL
In the past 24 hrs, patient has been: Afebrile
Concomitant Antimicrobials: PO vancomycin
- Assessment - Therapeutic Drug Monitoring
Extrapolated Cmax (mcg/mL): 32.3
Peak level was drawn: Appropriately
Extrapolated Cmin (mcg/mL): 15.5
Trough Drawn: Appropriately
Levels were drawn: At steady state
Calculated AUC (mcg*h/mL): 551
Calculated ke: 0.0335
Calculated half life (H): 20.7
Calculated Vd (L): 94.74
Calculated Vanc CL (ml/min): 52.92
- Dosing Plan
Continue: vancomycin 1750 mg q24h
- Monitoring Plan
Level(s) appropriate: Recheck trough at minimum of weekly intervals, Repeat sooner for changes in renal function or clinical status
Monitoring Comments: consider repeat levels in a couple days to see if pt has additional accum.
AUC and P/T were higher than calculated prediction, but still within therapeutic range. May consider repeat levels to assess for any additional accumulation
- Follow Up
Pharmacy will continue to follow.
Vancomycin Follow UP
- -
Patient Age: 79
Patient Sex: Male
Vancomycin Day #: 10
Indication: Bone And Joint
Requesting Provider: Dr. Hale / Zac
Pertinent Antimicrobial Allergies:
NKDA
Height / Weight:
Height 5 ft 11 in
Actual Weight 79 kg
IBW in k.3
- Vital Signs / Lab Results
Temp Pulse Resp BP Pulse Ox
98.4 F 69 18 124/64 98
02/01/25 07:30 02/01/25 07:30 02/01/25 07:30 02/01/25 07:30 02/01/25 07:30
Lab Results - Hematology
01/29/25 01/30/25 01/31/25
20:29 06:25 09:42
WBC 6.7 9.4 10.7
Lab Results - Chemistry
01/30/25 01/31/25
06: 09:42
BUN 27 H 26 H
Creatinine 0.7 0.8
Estimated Creat Clear 94 82
Microbiology Results
01/28/25 14:03 Blood Culture - Preliminary
Blood/Venous No Growth in 72 hours- Final report to follow
01/25/25 07:05 Blood Culture - Final
Blood/Venous Staph aureus MRSA
Gram Stain - Final
01/28/25 12:33 Blood Culture - Preliminary
Blood/Venous No Growth in 72 hours- Final report to follow
01/29/25 15:20 Urine Culture - Final
Urine Yeast
01/22/25 23:15 Blood Culture - Final
Blood/Venous Staph aureus MRSA
Gram Stain - Final
01/22/25 23:15 Blood Culture - Final
Blood/Venous Staph aureus MRSA
Gram Stain - Final
Therapeutic Drug Monitoring
Vancomycin Peak 30.3 ug/ml (18-26) H 01/31/25 09:42
Vancomycin Trough 15.5 ug/ml (5-20) 02/01/25 05:57
[2025-02-01] MEDS: VITAMIN D3 (cholecalciferol) 25 MCG PO (08:29)
[2025-02-01] MEDS: FLORASTOR 500 MG PO (08:29)
[2025-02-01] MEDS: VISBIOME 2 CAP PO (08:29)
[2025-02-01] MEDS: HEPARIN 5000 UNITS SC (08:29)
[2025-02-01] MEDS: FLOMAX 0.4 MG PO (08:29)
[2025-02-01] MEDS: LOW STRENGTH ASPIRIN 81 MG PO (08:29)
[2025-02-01] MEDS: GLUCOPHAGE 500 MG PO ×2 (08:29→17:12)
[2025-02-01] MEDS: FARXIGA 10 MG PO (08:29)
[2025-02-01] MEDS: PRANDIN 1 MG PO ×2 (08:29→12:11)
[2025-02-01] MEDS: LANTUS 0.3 UNITS SC (08:30)
[2025-02-01] MEDS: FIRVANQ 125 MG PO ×2 (08:35→21:21)
[2025-02-01] MEDS: MIRALAX PO (08:36)
[2025-02-01] MEDS: SENOKOT PO ×2 (08:36→21:24)
[2025-02-01] MEDS: COLACE PO ×2 (08:36→21:24)
--- NOTE | 2025-02-01 10:14 | CM ---
Reviewed the chart notes and referral sent to [facility]. Prior auth will be required. CM continues to be available to patient/family and is monitoring medical plan for needs at discharge.
Plan: Discharge to Acute Rehab once bed secured and prior auth obtained.
--- NOTE | 2025-02-01 11:17 | PTCARENOTE ---
Patient's Dilaudid DEVELOPMENT OFFICER pump DCed per vascular. Patient rates R BKA pain a 0/10 at this time, states he did not use pump overnight and does not feel need for it anymore. PRN PO pain medications ordered per vascular, patient made aware by this RN.
Sapphire pump placed in med room, [facility]
--- NOTE | 2025-02-01 11:28 | W.PN.HOSP.TC ---
Addendum entered and electronically signed by Moisés Iglesias MD 02/01/25 11:59:
Discussed with vascular. Okay for discharge from their standpoint.
They also cleared patient to restart Xarelto.
Original Note:
Today's Communication/Plan
-
Stump protector arriving from [facility] today per vascular
Labs tomorrow
PM&R consulted
Case management to facilitate discharge planning-discussed
Assessment / Plan
Assessment / Plan
79-year-old man with nonhealing right foot wound urinary symptoms. He was hospitalized in April 2020 for with right heel wound/osteomyelitis underwent debridement and right SFA to peroneal bypass. He also received 6 weeks of IV vancomycin and
meropenem for ESBL E. coli. Subsequent arteriogram in November 2024 showed patent vessels. He goes to [facility] for wound care. He was recently seen at [place] wound VAC was removed.
CVS: S1-S2 normal
Chest: CTA B/L
Abdomen: Soft, NT / Bowel sounds present
Extremities: No edema left, right BKA bandaged
# Diabetic foot infection
Nonhealing right ulcer/osteomyelitis
Sepsis secondary to MRSA bacteremia
IV meropenem discontinued
Continue vancomycin
Blood cultures from 01/25/2025 with MRSA
Blood cultures from 01/28/2025-negative so far
Echo 01/25/2025-normal biventricular size and systolic function without regional wall motion abnormality. Mild aortic stenosis. No significant change from 02/20/2023
# ASCVD/PAD
Status post bilateral lower extremity bypass surgeries angioplasty and stent in the past.
Status post right BKA on 01/29/2025
Continue statin, aspirin
AGRICULTURIST for pain control per vascular
Restart Xarelto when okay with vascular
# Mild hypoxic respiratory insufficiency secondary to postop state and atelectasis. Wean oxygen as tolerated
# UTI history of enlarged prostate bladder scan and straight cath as needed. CX neg
# Mild hyperkalemia- Better Lokelma. If potassium goes high again will need low potassium diet to be restarted
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
Accu-Cheks and sliding scale coverage
Patient is on Xigduo , Lantus 30 units daily, Prandin 1 mg 3 times daily as outpatient
Lantus 30 units, metformin and Prandin , Farxiga plus sliding scale ordered
# Acute on chronic microcytic anemia
Transfused 1 unit of packed red blood cells this admission
# History of intracranial/subdural hematoma
# Cognitive dysfunction
# H/O C Diff- On PO Vanco Prophylaxis.
# Enlarged prostate, Microscopic hematuria-ultrasound of the urinary bladder showed 6 X 1.8 X 1.7 cm lobulated echogenic focus. May represent clot or possible mass. No hydronephrosis or sonographic evidence of suspicious renal lesion.
Sees Joe Beauchamp as OP.
Urology eval appreciated. Outpatient cystoscopy
# Abnormal LFTs likely secondary to sepsis-improved
# Vitamin D deficiency-replace
# DVT prophylaxis-subcutaneous heparin
# Full code
D/W RN
D/W Vascular
D/W case management.
Anticipated Discharge: Within 24 hours
Subjective/Interval History
-
Date of Service: February 01, 2025
Objective Data
-
Vital Signs:
Vital Signs
Temp Pulse Resp BP Pulse Ox
98.4 F 69 18 124/64 98
02/01/25 07:30 02/01/25 07:30 02/01/25 07:30 02/01/25 07:30 02/01/25 11:15
I&O
01/31/25 02/01/25 02/02/25
06:59 06:59 06:59
Intake Total 1495 / 1495 2275 / 2275
Output Total 2500 / 2500 1575 / 1575
Balance -1005 / -1005 700 / 700
[2025-02-01 11:58] LABS: Glucose - Point of Care 130 mg/dl (70-99)
--- NOTE | 2025-02-01 15:26 | W.PN.ID1 ---
Date of Service
Date of Service: February 01, 2025
Today's Communication
Continue antibiotics.
Assessment / Plan
Suspected complicated urinary tract infection
Leukocytosis
Recent history of C. difficile
Chronic right heel wound
- hx osteomyelitis; hx 6 wk IV abx x 2 rounds
- followed by [facility]
MRSA bacteremia (01/22, 01/25)
- urine vs (R) foot source
DM
Diabetic neuropathy,
HLD
PAD
Subdural hematoma
Recommendations:
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
Continue vancomycin IV
Repeat blood culture on 01/25 positive.
01/28 bcx x 2 neg to date
Would continue with abx in the treatment of MRSA bacteremia at least through 02/11/25, although may wish to continue longer. Will check ESR / CRP.
Echocardiogram without evidence of vegetation although mitral valve leaflets and aortic valve leaflets noted to be thickened.
Continue prophylactic oral vancomycin given recent history of C. difficile.
����������������������������������������������������������
Chief Complaint
-: Bacteremia
Subjective / Review of Systems
Review of Systems: No Fever and No Chills
Vital Signs / Physical Exam
Vital Signs
Vital Signs
Temp Pulse Resp BP Pulse Ox
98.4 F 69 18 124/64 98
02/01/25 07:30 02/01/25 07:30 02/01/25 07:30 02/01/25 07:30 02/01/25 11:15
Physical Exam
Constitutional: No Acute Distress, Comfortable, Chronically Ill and Non-toxic
Eyes: Sclera Anicteric
Cardiovascular: S1/S2; Negative S3/S4
Pulmonary: Clear and Non Labored
Gastrointestinal: Soft and Non Tender
Extremities: Edema
Wound: Other (Right BKA dressing dry. No strikethrough.)
Neurological: AO x 3
Objective Data
Lab Data
Lab Results
01/31/25 09:42
01/31/25 09:42
Estimated Creat Clear 82 ml/min 01/31/25 09:42
Lactic Acid 1.1 mmol/L (0.7-2.0) 01/23/25 01:37
Total Bilirubin 0.4 mg/dl (0.2-1.3) 01/29/25 05:36
AST 20 U/L (17-59) 01/29/25 05:36
ALT 38 U/L (0-50) 01/29/25 05:36
Alkaline Phosphatase 103 U/L (38-126) 01/29/25 05:36
Most recent labs reviewed.
Micro Results:
01/28/25 14:03 Blood Culture - Preliminary
Blood/Venous No Growth in 4 days- Final report to follow
01/28/25 12:33 Blood Culture - Preliminary
Blood/Venous No Growth in 4 days- Final report to follow
01/25/25 07:05 Blood Culture - Final
Blood/Venous Staph aureus MRSA
Gram Stain - Final
01/29/25 15:20 Urine Culture - Final
Urine Yeast
01/22/25 23:15 Blood Culture - Final
Blood/Venous Staph aureus MRSA
Gram Stain - Final
01/22/25 23:15 Blood Culture - Final
Blood/Venous Staph aureus MRSA
Gram Stain - Final
01/24/25 12:14 Blood Culture - Final
Blood/Venous No Growth - Final Report
01/24/25 11:39 Blood Culture - Final
Blood/Venous No Growth - Final Report
01/22/25 23:15 Urine Culture - Final
Urine
Imaging:
01/25/25 ECHO (TTE): Normal biventricular size and systolic function. No regional wall motion abnormality. Mild aortic stenosis. EF approximately 65%. Thickened mitral valve leaflets. Thickened aortic valve leaflets with restricted motion. No
intracardiac mass or thrombus formation seen. Please see full dictation for additional detail.
01/23/2025 CXR (2 view): No focal consolidation, pleural effusion or pneumothorax noted. Please see full dictation for additional detail.
[2025-02-01 16:39] LABS: Glucose - Point of Care 63 mg/dl (70-99)
[2025-02-01] MEDS: PRANDIN PO (16:44)
[2025-02-01 17:11] LABS: Glucose - Point of Care 128 mg/dl (70-99)
--- NOTE | 2025-02-01 18:37 | PTCARENOTE ---
Patient's HR on vital machine for 1500 vitals 40; this RN confirmed with portable POX, HR 35, radial pulse 40 when palpated by this RN. Patient up OOB in chair form majority of shift, states no complaints. This RN communicated with MD, EKG taken by
tech and results sent to MD, HR on EKG 70, EKG showing NSR with bigeminy - see report. Patient continuing to state no complaints, no new orders at this time per MD. Patient's dinner time blood sugar 63, patient asymptomatic, dinner at bedside,
repeat sugar after eating meal 128. Prandceleste held, metformin okay to give per MD - see DEC.
[2025-02-01 19:37] LABS: Glucose - Point of Care 79 mg/dl (70-99)
[2025-02-01] MEDS: CRESTOR 20 MG PO (21:20)
[2025-02-01] MEDS: MELATONIN 3 MG PO (21:21)
[2025-02-01] MEDS: XARELTO 2.5 MG PO (21:21)
[2025-02-01 22:38] LABS: Glucose - Point of Care 60 mg/dl (70-99)
[2025-02-01 23:18] LABS: Glucose - Point of Care 77 mg/dl (70-99)
[2025-02-02] VITALS (9 sets, daily range): BP systolic 120–139; BP diastolic 50–84; PULSE 81; O2SAT 97
[2025-02-02 01:19] LABS: Glucose - Point of Care 109 mg/dl (70-99)
[2025-02-02 03:19] LABS: Glucose - Point of Care 77 mg/dl (70-99)
[2025-02-02 05:17] LABS: Glucose - Point of Care 106 mg/dl (70-99)
[2025-02-02] MEDS: VANCOCIN 535 MG IV (05:46)
[2025-02-02 07:33] LABS: Hematocrit 24.6 % (39.0-52.0); Hemoglobin 7.7 g/dL (13.0-18.0); Mean Corp Hgb Conc. 31.3 g/dL (33.0-37.0); Mean Corpuscular Hgb 24.2 pg (27.0-31.0); Mean Corpuscular Volume 77.4 fL (80.0-94.0); Mean Platelet Volume 9.9 fL (7.4-10.4); Platelet Count 297 10^3/uL (130-400); Red Blood Cell Count 3.18 10^6/uL (4.70-6.10); White Blood Cell Count 7.4 10^3/uL (4.8-10.8)
[2025-02-02 07:46] LABS: Glucose - Point of Care 87 mg/dl (70-99)
[2025-02-02] MEDS: NOVOLOG FLEXPEN-MODERATE RESISTANCE SC ×2 (07:57→11:48)
[2025-02-02 08:09] LABS: Blood Urea Nitrogen 20 mg/dl (9-20); Calcium 7.9 mg/dl (8.4-10.2); Carbon Dioxide 29 mmol/L (22-30); Chloride 102 mmol/L (98-107); Creatine Phosphokinase 44 U/L (55-170); Estimated Creatinine Clearance 94 ml/min; Glucose 82 mg/dl (70-99); Potassium 4.7 mmol/L (3.5-5.1); Sodium 136 mmol/L (135-145); eGFR > 60.00
[2025-02-02] MEDS: MIRALAX PO (08:36)
[2025-02-02] MEDS: COLACE PO ×2 (08:36→20:56)
[2025-02-02] MEDS: FARXIGA 10 MG PO (08:37)
[2025-02-02] MEDS: GLUCOPHAGE 500 MG PO ×2 (08:37→16:28)
[2025-02-02] MEDS: VITAMIN D3 (cholecalciferol) 25 MCG PO (08:37)
[2025-02-02] MEDS: XARELTO 2.5 MG PO ×2 (08:37→20:52)
[2025-02-02] MEDS: FIRVANQ 125 MG PO ×2 (08:37→20:52)
[2025-02-02] MEDS: VISBIOME 2 CAP PO (08:37)
[2025-02-02] MEDS: FLORASTOR 500 MG PO (08:37)
[2025-02-02] MEDS: LOW STRENGTH ASPIRIN 81 MG PO (08:37)
[2025-02-02] MEDS: SENOKOT PO ×2 (08:37→20:56)
[2025-02-02] MEDS: PRANDIN 1 MG PO ×3 (08:37→16:30)
[2025-02-02] MEDS: FLOMAX 0.4 MG PO (08:37)
[2025-02-02] MEDS: LANTUS 0.3 UNITS SC (08:38)
--- NOTE | 2025-02-02 08:41 | PHA.VAN.FU ---
Vancomycin Assessment / Plan
- Assessment
Renal Function: Stable
WBC's are: WNL
In the past 24 hrs, patient has been: Afebrile
Concomitant Antimicrobials: vancomycin PO
- Dosing Plan
Continue: Vanc 1750mg Q24H
- Monitoring Plan
Level(s) appropriate: Recheck trough at minimum of weekly intervals, Repeat sooner for changes in renal function or clinical status
Next Level Due (Date): ~02/08 - may consider sooner to assesss for additional accumulation
- Follow Up
Pharmacy will continue to follow.
Vancomycin Follow UP
- -
Patient Age: 79
Patient Sex: Male
Vancomycin Day #: 11
Indication: [facility]
Requesting Provider: Dr. Hale / Zac
Pertinent Antimicrobial Allergies:
NKDA
Height / Weight:
Height 5 ft 11 in
Actual Weight 79 kg
IBW in k.3
- Vital Signs / Lab Results
Temp Pulse Resp BP Pulse Ox
98.1 F 60 18 129/53 99
02/02/25 07:40 02/02/25 07:40 02/02/25 07:40 02/02/25 07:40 02/02/25 07:40
Lab Results - Hematology
01/31/25 02/02/25
09:42 05:43
WBC 10.7 7.4
Lab Results - Chemistry
01/31/25 02/02/25
09:42 05:42
BUN 26 H 20
Creatinine 0.8 0.7
Estimated Creat Clear 82 94
Microbiology Results
01/28/25 14:03 Blood Culture - Preliminary
Blood/Venous No Growth in 4 days- Final report to follow
01/28/25 12:33 Blood Culture - Preliminary
Blood/Venous No Growth in 4 days- Final report to follow
01/25/25 07:05 Blood Culture - Final
Blood/Venous Staph aureus MRSA
Gram Stain - Final
01/29/25 15:20 Urine Culture - Final
Urine Yeast
Therapeutic Drug Monitoring
Vancomycin Peak 30.3 ug/ml (18-26) H 01/31/25 09:42
Vancomycin Trough 15.5 ug/ml (5-20) 02/01/25 05:57
[2025-02-02 09:02] LABS: Erythrocyte Sed Rate 118 mm/hour (0-20)
[2025-02-02 11:49] LABS: Glucose - Point of Care 99 mg/dl (70-99)
--- NOTE | 2025-02-02 12:07 | W.PN.HOSP.TC ---
Today's Communication/Plan
-
Blood transfusion today
PMR consult for rehab pending.
Assessment / Plan
Assessment / Plan
79-year-old man with nonhealing right foot wound urinary symptoms. He was hospitalized in April 2020 for with right heel wound/osteomyelitis underwent debridement and right SFA to peroneal bypass. He also received 6 weeks of IV vancomycin and
meropenem for ESBL E. coli. Subsequent arteriogram in November 2024 showed patent vessels. He goes to [facility] for wound care. He was recently seen at [place] wound VAC was removed.
CVS: S1-S2 normal
Chest: CTA B/L
Abdomen: Soft, NT / Bowel sounds present, rectal heme neg brown stool
Extremities: No edema left, right BKA bandaged
EKG- with Bigeminy.
# Diabetic foot infection
Nonhealing right ulcer/osteomyelitis
Sepsis secondary to MRSA bacteremia
IV meropenem discontinued
Continue vancomycin treatment of MRSA bacteremia at least through 02/11/25, though ID may do longer ( CRP and Sed rate high)
Blood cultures from 01/25/2025 with MRSA
Blood cultures from 01/28/2025-negative so far
Echo 01/25/2025-normal biventricular size and systolic function without regional wall motion abnormality. Mild aortic stenosis. No significant change from 02/20/2023
# ASCVD/PAD
Status post bilateral lower extremity bypass surgeries angioplasty and stent in the past.
Status post right BKA on 01/29/2025 by .
Pain control.
Continue statin, aspirin.Restarted Xarelto 02/01/25
# Mild hypoxic respiratory insufficiency secondary to postop state and atelectasis. Has been Off O2.
# UTI ruled out -history of enlarged prostate bladder scan and straight cath as needed. CX neg
# Mild hyperkalemia- Better with Lokelma. If potassium goes high again will need low potassium diet to be restarted
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
Accu-Cheks and sliding scale coverage
Patient is on Xigduo , Lantus 30 units daily, Prandin 1 mg 3 times daily as outpatient
Lantus 30 units, metformin and Prandin , Farxiga plus sliding scale ordered
# Acute on chronic microcytic anemia
Transfused 1 unit of packed red blood cells this admission 01/24/25, One more ordered for 02/02/25
No clear source of bleeding, possible acute post op blood loss anemia on chronic anemia
Rectal heme neg.
# History of intracranial/subdural hematoma
# Cognitive dysfunction
# H/O C Diff- On PO Vanco Prophylaxis while on AB.
# Enlarged prostate, Microscopic hematuria-ultrasound of the urinary bladder showed 6 X 1.8 X 1.7 cm lobulated echogenic focus. May represent clot or possible mass. No hydronephrosis or sonographic evidence of suspicious renal lesion.
Sees Joe Beauchamp as OP.
Urology eval appreciated. Outpatient cystoscopy recommended by and , unless pt develops xiao hematuria.
# Abnormal LFTs likely secondary to sepsis-improved
# Vitamin D deficiency-replace
# DVT prophylaxis-Eliquis
# Full code
D/W RN
Daughter updated 02/01/25.
time spent over 50 min
Anticipated Discharge: 24 - 48 hours
Subjective/Interval History
-
Date of Service: February 02, 2025
Objective Data
-
Labs:
Laboratory Results
02/02/25 02/02/25
05:42 05:43
WBC 7.4
Hgb 7.7 L
Hct 24.6 L
Plt Count 297
Sodium 136
Potassium 4.7
Chloride 102
Carbon Dioxide 29
BUN 20
Creatinine 0.7
Glucose 82
Calcium 7.9 L
Vital Signs:
Vital Signs
Temp Pulse Resp BP Pulse Ox
98.1 F 60 18 129/53 99
02/02/25 07:40 02/02/25 07:40 02/02/25 07:40 02/02/25 07:40 02/02/25 07:40
I&O
02/01/25 02/02/25 02/03/25
06:59 06:59 06:59
Intake Total 2275 / 2275
Output Total 1575 / 1575 1400 / 1400
Balance 700 / 700 -1400 / -1400
--- NOTE | 2025-02-02 15:30 | W.PN.ID1 ---
Date of Service
Date of Service: February 02, 2025
Today's Communication
Continue antibiotics. Transition to once daily daptomycin for ease of administration
Assessment / Plan
Leukocytosis
Recent history of C. difficile
Chronic right heel wound
- hx osteomyelitis; hx 6 wk IV abx x 2 rounds
- followed by [facility]
- s/p BKA
MRSA bacteremia (01/22, 01/25)
- urine vs (R) foot source
DM
Diabetic neuropathy,
HLD
PAD
Subdural hematoma
Recommendations:
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
Repeat blood culture on 01/25 positive.
01/28 bcx x 2 neg to date
Echocardiogram without evidence of vegetation although mitral valve leaflets and aortic valve leaflets noted to be thickened.
Would continue with abx in the treatment of MRSA bacteremia through 03/08/25. Would treat 6 weeks given persistant bacteremia, elevated ESR/CRP and ECHO findings.
Transition to once daily daptomycin for ease of administration. Will hold statin while on daptomycin.
Continue prophylactic oral vancomycin given recent history of C. difficile.
����������������������������������������������������������
Chief Complaint
-: Bacteremia
Subjective / Review of Systems
Review of Systems: No Fever and No Chills
Vital Signs / Physical Exam
Vital Signs
Vital Signs
Temp Pulse Resp BP Pulse Ox
98.1 F 68 16 125/60 98
02/02/25 15:13 02/02/25 15:13 02/02/25 15:13 02/02/25 15:13 02/02/25 15:13
Physical Exam
Constitutional: No Acute Distress, Comfortable, Chronically Ill and Non-toxic
Eyes: Sclera Anicteric
Cardiovascular: S1/S2; Negative S3/S4
Pulmonary: Clear and Non Labored
Gastrointestinal: Soft and Non Tender
Extremities: Edema
Wound: Other (Right BKA dressing dry. No strikethrough.)
Neurological: AO x 3
Objective Data
Lab Data
Lab Results
02/02/25 05:43
02/02/25 05:42
ESR 118 mm/hour (0-20) H 02/02/25 05:43
Estimated Creat Clear 94 ml/min 02/02/25 05:42
Lactic Acid 1.1 mmol/L (0.7-2.0) 01/23/25 01:37
Total Bilirubin 0.4 mg/dl (0.2-1.3) 01/29/25 05:36
AST 20 U/L (17-59) 01/29/25 05:36
ALT 38 U/L (0-50) 01/29/25 05:36
Alkaline Phosphatase 103 U/L (38-126) 01/29/25 05:36
C-Reactive Protein 142.20 mg/L (0.0-10.00) H 02/02/25 05:42
Most recent labs reviewed.
Micro Results:
01/28/25 14:03 Blood Culture - Final
Blood/Venous No Growth - Final Report
01/28/25 12:33 Blood Culture - Final
Blood/Venous No Growth - Final Report
01/25/25 07:05 Blood Culture - Final
Blood/Venous Staph aureus MRSA
Gram Stain - Final
01/29/25 15:20 Urine Culture - Final
Urine Yeast
01/22/25 23:15 Blood Culture - Final
Blood/Venous Staph aureus MRSA
Gram Stain - Final
01/22/25 23:15 Blood Culture - Final
Blood/Venous Staph aureus MRSA
Gram Stain - Final
01/24/25 12:14 Blood Culture - Final
Blood/Venous No Growth - Final Report
01/24/25 11:39 Blood Culture - Final
Blood/Venous No Growth - Final Report
01/22/25 23:15 Urine Culture - Final
Urine
Imaging:
01/25/25 ECHO (TTE): Normal biventricular size and systolic function. No regional wall motion abnormality. Mild aortic stenosis. EF approximately 65%. Thickened mitral valve leaflets. Thickened aortic valve leaflets with restricted motion. No
intracardiac mass or thrombus formation seen. Please see full dictation for additional detail.
01/23/2025 CXR (2 view): No focal consolidation, pleural effusion or pneumothorax noted. Please see full dictation for additional detail.
--- NOTE | 2025-02-02 16:11 | CM ---
Reviewed the chart notes and spoke with the patient at the bedside. [facility] will accept. Prior auth will be required. CM continues to be available to patient/family and is monitoring medical plan for needs at discharge.
[facility]
Dr. Pearl Palafox
Plan: Discharge to [facility] once medically stable and prior auth obtained.
[2025-02-02] MEDS: NOVOLOG FLEXPEN-MODERATE RESISTANCE 1 UNITS SC (16:30)
[2025-02-02 16:31] LABS: Glucose - Point of Care 159 mg/dl (70-99)
[2025-02-02] MEDS: CUBICIN 16 MG IV (17:49)
[2025-02-02 21:44] LABS: Glucose - Point of Care 145 mg/dl (70-99)
[2025-02-02] MEDS: MELATONIN 3 MG PO (22:26)
[2025-02-03 07:26] LABS: Glucose - Point of Care 96 mg/dl (70-99)
[2025-02-03 07:43] VITALS: BP 142/80
[2025-02-03 07:44] VITALS: BP 122/56
[2025-02-03] MEDS: LANTUS 0.3 UNITS SC (09:06)
[2025-02-03] MEDS: FLORASTOR 500 MG PO (09:07)
[2025-02-03] MEDS: FIRVANQ 125 MG PO ×2 (09:07→20:51)
[2025-02-03] MEDS: NOVOLOG FLEXPEN-MODERATE RESISTANCE SC ×3 (09:07→16:34)
[2025-02-03] MEDS: FARXIGA 10 MG PO (09:07)
[2025-02-03] MEDS: GLUCOPHAGE 500 MG PO ×2 (09:07→16:35)
[2025-02-03] MEDS: VISBIOME 2 CAP PO (09:07)
[2025-02-03] MEDS: XARELTO 2.5 MG PO ×2 (09:08→20:51)
[2025-02-03] MEDS: FLOMAX 0.4 MG PO (09:08)
[2025-02-03] MEDS: PRANDIN 1 MG PO ×3 (09:08→16:35)
[2025-02-03] MEDS: LOW STRENGTH ASPIRIN 81 MG PO (09:08)
[2025-02-03] MEDS: VITAMIN D3 (cholecalciferol) 25 MCG PO (09:08)
--- NOTE | 2025-02-03 09:10 | W.PN.HOSP.TC ---
Addendum entered and electronically signed by Sara Kapoor MD 02/03/25 15:54:
EKG and H&H reviewed--both are stable--PICC line has been placed--hemoglobin is back at baseline after 1 unit of blood--patient is medically stable to go to inpatient rehab at this time
Spoke with patient daughter and explained the entire above scenario and that he will have an outpatient workup for his bladder mass which is likely the cause of his anemia--last documentation from urology on 01/28/2025 is outpatient cystoscopy and
workup
Original Note:
Today's Communication/Plan
-
d/c to acute rehab
check EKG and H&H urgently today
Assessment / Plan
Assessment / Plan
79-year-old man with nonhealing right foot wound urinary symptoms. He was hospitalized in April 2020 for with right heel wound/osteomyelitis underwent debridement and right SFA to peroneal bypass. He also received 6 weeks of IV vancomycin and
meropenem for ESBL E. coli. Subsequent arteriogram in November 2024 showed patent vessels. He goes to [facility] for wound care. He was recently seen at [place] wound VAC was removed.
# Diabetic foot infection
Nonhealing right ulcer/osteomyelitis
Sepsis secondary to MRSA bacteremia
IV meropenem discontinued
Continue daptomycin treatment of MRSA bacteremia at least through 03/08/25
Blood cultures from 01/25/2025 with MRSA
Blood cultures from 01/28/2025-negative so far
Echo 01/25/2025-normal biventricular size and systolic function without regional wall motion abnormality. Mild aortic stenosis. No significant change from 02/20/2023
# ASCVD/PAD
Status post bilateral lower extremity bypass surgeries angioplasty and stent in the past.
Status post right BKA on 01/29/2025 by .
Pain control.
Continue statin, aspirin.Restarted Xarelto 02/01/25
# Mild hypoxic respiratory insufficiency secondary to postop state and atelectasis. Has been Off O2.
# UTI ruled out -history of enlarged prostate bladder scan and straight cath as needed. CX neg
# Mild hyperkalemia- Better with Lokelma. If potassium goes high again will need low potassium diet to be restarted
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
Accu-Cheks and sliding scale coverage
Patient is on Xigduo , Lantus 30 units daily, Prandin 1 mg 3 times daily as outpatient
Lantus 30 units, metformin and Prandin , Farxiga plus sliding scale ordered
# Acute on chronic microcytic anemia
Transfused 1 unit of packed red blood cells this admission 01/24/25, One more ordered for 02/02/25
No clear source of bleeding, possible acute post op blood loss anemia on chronic anemia
Rectal heme neg.
# History of intracranial/subdural hematoma
# Cognitive dysfunction
# H/O C Diff- On PO Vanco Prophylaxis while on AB.
# Enlarged prostate, Microscopic hematuria-ultrasound of the urinary bladder showed 6 X 1.8 X 1.7 cm lobulated echogenic focus. May represent clot or possible mass. No hydronephrosis or sonographic evidence of suspicious renal lesion.
Sees Joe Beauchamp as OP.
Urology eval appreciated. Outpatient cystoscopy recommended by and , unless pt develops xiao hematuria.
# Abnormal LFTs likely secondary to sepsis-improved
# Vitamin D deficiency-replace
# DVT prophylaxis-Eliquis
# Full code
D/W RN
Anticipated Discharge: Within 24 hours
Subjective/Interval History
-
Date of Service: February 03, 2025
pt asking to speak with Dr. Morales
Objective Data
-
Vital Signs:
max temp for 24 hours
02/02/25
17:42
Temp 98.3 F
Vital Signs
Temp Pulse Resp BP Pulse Ox
98.1 F 51 17 122/56 98
02/03/25 07:44 02/03/25 07:44 02/03/25 07:44 02/03/25 07:44 02/03/25 07:44
I&O
02/02/25 02/03/25 02/04/25
06:59 06:59 06:59
Intake Total 1210 / 1210
Output Total 1400 / 1400 2450 / 2450
Balance -1400 / -1400 -1240 / -1240
Review of Systems
-
All other systems: Reviewed and negative
Physical Exam
-
General: Well Developed, Well Nourished and No Apparent Distress
HEENT: Normocephalic and Atraumatic
Respiratory: Clear to Auscultation; Negative Wheezes or Rhonchi
Cardiac: Irregular Rhythm
GI: Soft, Nontender, Nondistended and Normal Bowel Sounds
Musculoskeletal: No Clubbing, No Cyanosis, No Edema and Other (right BKA)
Neuro: Awake
[2025-02-03 09:48] LABS: Hematocrit 28.5 % (39.0-52.0); Hemoglobin 9.1 g/dL (13.0-18.0)
[2025-02-03] MEDS: COLACE PO (09:51)
[2025-02-03] MEDS: SENOKOT PO (09:51)
[2025-02-03] MEDS: MIRALAX PO (09:51)
--- NOTE | 2025-02-03 10:52 | W.PN.UPDATE ---
Update Note
Progress Note Update
Patient seen at bedside, stump protector in place, and answered all his questions regarding next step for healing from an amputation perspective including rehab, staple care, physical therapy, and eventual prosthesis fitting/ordering. Patient
verbalized understanding, and thankful for education on recovery.
--- NOTE | 2025-02-03 11:17 | W.PN.ID1 ---
Date of Service
Date of Service: February 03, 2025
Today's Communication
Continue antibiotics.
Assessment / Plan
Leukocytosis
Recent history of C. difficile
Chronic right heel wound
- s/p BKA
MRSA bacteremia (01/22, 01/25)
- urine vs (R) foot source
DM
Diabetic neuropathy,
HLD
PAD
Subdural hematoma
Recommendations:
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
Repeat blood culture on 01/25 positive.
01/28 bcx x 2 neg to date
Echocardiogram without evidence of vegetation although mitral valve leaflets and aortic valve leaflets noted to be thickened. ESR and CRP elevated.
Would continue with abx in the treatment of MRSA bacteremia through 03/08/25. Would treat 6 weeks given persistent bacteremia, elevated ESR/CRP and ECHO findings.
Transition to once daily daptomycin for ease of administration. Will hold statin while on daptomycin.
Continue prophylactic oral vancomycin given recent history of C. difficile.
����������������������������������������������������������
Chief Complaint
-: Bacteremia
Subjective / Review of Systems
Review of Systems: No Fever, No Chills and No Palpitations
Vital Signs / Physical Exam
Vital Signs
Vital Signs
Temp Pulse Resp BP Pulse Ox
98.1 F 51 17 122/56 98
02/03/25 07:44 02/03/25 07:44 02/03/25 07:44 02/03/25 07:44 02/03/25 07:44
Physical Exam
Constitutional: No Acute Distress, Comfortable, Chronically Ill and Non-toxic
Eyes: Sclera Anicteric
Cardiovascular: S1/S2; Negative S3/S4
Pulmonary: Clear and Non Labored
Gastrointestinal: Soft and Non Tender
Extremities: Edema
Wound: Other (Right BKA stump protector in place.)
Neurological: AO x 3
Objective Data
Lab Data
Lab Results
02/03/25 09:32
02/02/25 05:42
ESR 118 mm/hour (0-20) H 02/02/25 05:43
Estimated Creat Clear 94 ml/min 02/02/25 05:42
Lactic Acid 1.1 mmol/L (0.7-2.0) 01/23/25 01:37
Total Bilirubin 0.4 mg/dl (0.2-1.3) 01/29/25 05:36
AST 20 U/L (17-59) 01/29/25 05:36
ALT 38 U/L (0-50) 01/29/25 05:36
Alkaline Phosphatase 103 U/L (38-126) 01/29/25 05:36
C-Reactive Protein 142.20 mg/L (0.0-10.00) H 02/02/25 05:42
Most recent labs reviewed.
Micro Results:
01/28/25 14:03 Blood Culture - Final
Blood/Venous No Growth - Final Report
01/28/25 12:33 Blood Culture - Final
Blood/Venous No Growth - Final Report
01/25/25 07:05 Blood Culture - Final
Blood/Venous Staph aureus MRSA
Gram Stain - Final
01/29/25 15:20 Urine Culture - Final
Urine Yeast
01/22/25 23:15 Blood Culture - Final
Blood/Venous Staph aureus MRSA
Gram Stain - Final
01/22/25 23:15 Blood Culture - Final
Blood/Venous Staph aureus MRSA
Gram Stain - Final
01/24/25 12:14 Blood Culture - Final
Blood/Venous No Growth - Final Report
01/24/25 11:39 Blood Culture - Final
Blood/Venous No Growth - Final Report
01/22/25 23:15 Urine Culture - Final
Urine
Imaging:
01/25/25 ECHO (TTE): Normal biventricular size and systolic function. No regional wall motion abnormality. Mild aortic stenosis. EF approximately 65%. Thickened mitral valve leaflets. Thickened aortic valve leaflets with restricted motion. No
intracardiac mass or thrombus formation seen. Please see full dictation for additional detail.
01/23/2025 CXR (2 view): No focal consolidation, pleural effusion or pneumothorax noted. Please see full dictation for additional detail.
[2025-02-03 11:20] VITALS: BP 135/67; PULSE 66; O2SAT 97
[2025-02-03 11:25] VITALS: BP 135/67; PULSE 65; O2SAT 97
[2025-02-03 11:31] LABS: Glucose - Point of Care 124 mg/dl (70-99)
--- NOTE | 2025-02-03 12:08 | CON.MD ---
Addendum entered and electronically signed by Natan Souza MD 03/08/25 22:53:
Consult: 02/03/25
Original Note:
Consultation - Medical
-
Referring Provider:�Dr. Aj Gayle
Chief Complaint:�Debility after lower extremity bypass surgery
�
History of Present Illness:�79-year-old male with PMH (as below) presented to [facility] on 01/23/25 with generalized weakness, increased right foot pain and difficulty getting around. He had recent blood work with an elevated white blood
cell count. He was found to have a nonhealing right diabetic ulcer with osteomyelitis and sepsis secondary to MRSA bacteremia. He was placed on meropenem and eventually transition to daptomycin through 03/08/2025. He was seen by vascular and had
right below the knee amputation by Dr. Frey. Denies any pain in the leg at this time. Looking forward to having a better quality of life and not have time to deal with going in and out of the hospital and getting antibiotics frequently.
�
Past Medical History:�diabetes, diabetic neuropathy, hyperlipidemia, peripheral arterial disease, hypercholesterolemia, subdural hematoma, right heel osteomyelitis, right SFA bypass
Procedure History:�Appendectomy,Surgery on the foot for removal of calcium deposit. Surgery for I&D of foot; right cuboid bone debridement, left third toe amputation, right first second and third toe amputations, surgery for ruptured hematoma,
prior stent right lower extremity
Family History:�None pertinent
�
Social History:�
Functional Level Premorbidly:�Modified independent with all activities, has electric scooter for mobility in the community.
Functional Level Currently:�Min assist bed mobility, mod assist transfers, min assist toilet transfer.
�
Tobacco: Denies�
Alcohol: Denies�
Drug use:�Denies�
�
Lives with:�Spouse
24-hour assistance available:�Possibly
Number of floors: 2 story split-level
# steps to enter:�4
# steps to second floor: 5 steps to kitchen and 8 steps to bedroom
Potential First floor set up:�Yes
Driving:�No
Occupation:�Used to work for [employer]
�
Allergies:�
Allergy/AdvReac Type Severity Reaction Status Date / Time
No Known Allergies Allergy Verified 01/22/25 20:56
Review of Systems:�
Constitutional: (x) abNormal _fatigue
Eye: (x) Normal _
Ear/Nose/Throat: (x) Normal _
Respiratory: (x) Normal _
Cardiovascular: (x) abNormal _significant vascular disease
Gastrointestinal: (x) Normal _
Genitourinary: (x) Normal _
Musculoskeletal: (x) Normal _
Integumentary: (x) abNormal _right heel osteomyelitis now with amputation
Neurologic: (x) abNormal _decreased sensation left
Psychiatric: (x) Normal _
Endocrine: (x) Normal _
Hematologic/Lymphatic: (x) Normal _
Allergic/Immunologic: (x) Normal _
Medications:�
Active Current Visit Medication List
Category Date Time Status
Acetaminophen [Tylenol] Med 01/23/25 03:55 Active
650 mg PO Q4HPRN PRN
Aspirin Chewable [Low Strength Aspirin] Med 01/23/25 08:00 Active
81 mg PO DAILY
Bisacodyl [Dulcolax] Med 01/29/25 15:58 Active
10 mg RECTAL DAILYPRN PRN
Cholecalciferol (Vitamin D3) [VITAMIN D3 ( Med 01/28/25 08:00 Active
cholecalciferol)]
25 mcg PO DAILY
DAPTOmycin [Cubicin] 800 mg Med 02/02/25 16:00 Active
Syringe [Syringe-Pump] 0 ml
IV Q24H
Dapagliflozin [Farxiga] Med 01/30/25 08:15 Active
10 mg PO DAILY
Dextrose 50%-Water [Dextrose 50% Syringe] Med 01/23/25 03:55 Active
12.5 grams IV [id number] PRN
Docusate Sodium [Colace] Med 01/25/25 20:00 Active
100 mg PO BID
Flush (0.9% Sodium Chloride) [Flush (Nss)] Med 01/23/25 04:00 Active
See Dose Instructions IV PER PROTOCOL
Glucagon [GlucaGen] Med 01/23/25 03:55 Active
1 mg IM PRN PRN
Insulin Aspart Corrective Mod [Novolog Flexpen-Moderate Med 01/23/25 07:30 Active
Resistance]
See Protocol SC AC
Insulin Glargine Lantus [Lantus] 30 units Med 01/30/25 08:00 Active
Subcutaneous Insulin Syringe [Syringe-Insulin] 0 unit
SC DAILY
Lactobac/Bifidobac [Visbiome] Med 01/24/25 09:45 Active
2 cap PO DAILY
METFORMIN HCl [Glucophage] Med 01/28/25 08:00 Active
500 mg PO BID@0800,1700
Melatonin Med 01/26/25 22:00 Active
3 mg PO HS
Ondansetron Injectable [Zofran] Med 01/23/25 03:55 Active
4 mg IV Q6HPRN PRN
Oxycodone [Roxicodone] Med 02/01/25 07:45 Active
10 mg PO Q4HPRN PRN
Oxycodone [Roxicodone] Med 02/01/25 07:45 Active
5 mg PO Q4HPRN PRN
Polyethylene Glycol Powder [Miralax] Med 01/25/25 09:00 Active
17 grams PO DAILY
Repaglinide [Prandin] Med 01/28/25 08:00 Active
1 mg PO MEALS
Rivaroxaban [Xarelto] Med 02/01/25 20:00 Active
2.5 mg PO BID
Saccharomyces Boulardii [Florastor] Med 01/23/25 08:00 Active
500 mg PO DAILY
Sennosides [Senokot] Med 01/25/25 09:00 Active
17.2 mg PO BID
Tamsulosin [Flomax] Med 01/23/25 08:00 Active
0.4 mg PO DAILY
Vancomycin HCl [Firvanq] Med 01/23/25 09:30 Active
125 mg PO BID
Vitals:
Temp Pulse Resp BP Pulse Ox
98.1 F 73 18 149/66 98
02/03/25 23:20 02/03/25 23:20 02/03/25 23:20 02/03/25 23:20 02/03/25 23:20
Height 5 ft 11 in
Actual Weight 79 kg
Body Mass Index (BMI) 24.3
Physical exam:
General Appearance/Observation: Well-developed, well-nourished male in no apparent distress.�
Pain/Comfort Assessment: Denies currently
Mood/Affect: Appropriate�
�
Integumentary/Operative Site:�Right below-knee amputation site with derik
�
Eyes: Conjunctiva/Lids: normal���� Pupils: pupils equal round and reactive to light
Ears/Nose/Throat: oral mucosa moist,� throat clear.������������ Lips/Teeth/Gums: normal�
Cardiovascular: Heart: regular, no murmur�
Respiratory: Respiratory Effort/Chest Expansion: normal������� Auscultation: Clear to auscultation bilaterally�
Gastrointestinal: abdomen not tender, no distension, normal abdominal bowel sounds
Genitourinary: Frey empty
Extremities:�Edema: Right lower extremity edema�cyanosis: None�Trophic�changes: None
�
Neurology Exam:
Orientation: Alert, Oriented to self, Time, Place�
Memory: Intact for recent medical concerns
Comprehension: Intact
Two step command: Intact
Cranial Nerves:
�� CNII:�Pupillary light reflex: Intact���
�� CN III, IV, : Extraocular muscles: Intact�
�� CN VII:�Facial movement: Symmetric
�� CN VIII:�Hearing: Normal
�� CN IX/X:�Speech: Normal�Position of Uvula: Midline
�� CN XI:�Shoulder shrug: Symmetric
�� CN XII:�Tongue protrusion: Midline
Sensory:
�� Light touch: decreased stocking distribution left leg
�
Musculoskeletal: Motor: (Manual muscle scale 0-5)�
Muscle SA EF WE EE FF FA HF KE DF EHL PF
Right� 5 5 5 4 4 4 - - -
Left 5 5 5 4 5 5 5 5
�Tone: Normal in all extremities�
Range of Motion: Passively within functional limits in all extremities�
Lab Results
Laboratory Data
02/03/25 09:32
02/02/25 05:42
Total Bilirubin 0.4 mg/dl (0.2-1.3) 01/29/25 05:36
Direct Bilirubin 0.2 mg/dl (0.0-0.4) 01/29/25 05:36
AST 20 U/L (17-59) 01/29/25 05:36
ALT 38 U/L (0-50) 01/29/25 05:36
Alkaline Phosphatase 103 U/L (38-126) 01/29/25 05:36
Total Protein 5.5 g/dl (6.3-8.2) L 01/29/25 05:36
Albumin 2.3 g/dl (3.5-5.0) L 01/29/25 05:36
Diagnostic Results: as per HPI�
�
Assessment
79-year-old male [facility] (diabetes, diabetic neuropathy, hyperlipidemia, prior amputation of right second and third toe and left third toe, peripheral vascular disease status post bypass of left lower extremity, prior stent right lower extremity,
hypercholesterolemia, subdural hematoma) s/p 05/04/2024 right lower extremity [id number] popliteal artery to peroneal artery and 05/05/2024 he had a debridement of the right heel with ADL and ambulatory dysfunction.
Plan�
PM&R PT/OT to increase independence with ADLs, improve balance, coordination, endurance, strength, mobility, community reintegration, decreased burden of care on others and family education.�
�
Diabetic foot infection with osteomyelitis: Continue antibiotics for 6 weeks per ID.
Status post right below the knee amputation: Monitor incision, edema control with POLINA wrap, pain control, desensitization, Phantom limb pain education, maintain full ROM at hip and knee. Provided education about prosthesis and process for obtaining
one.
HTN: Not currently on medications monitor closely�
HLD: Statin�
Peripheral artery disease : Aspirin, statin
Uncontrolled diabetes type 2 with neuropathy: Accu-Cheks, insulin sliding scale, metformin, lantus, Prandin, Farxiga.�
Postoperative anemia: Continue to monitor.�
Pain: acetaminophen or oxycodone as needed.�
Recent C. difficile: Oral vancomycin prophylactically while still on antibiotic. Florastor
Bladder: Flomax. Monitor urine output
DVT Prophylaxis: Mechanical and rivaroxaban
Pulmonary: Incentive spirometry�
Safety: Continue to reinforce assistance with all transfers.�
Code Status:� Full code
Dispo (date/plan/equipment needs): Home with family care.� Social history reviewed.�
Functional and Medical Goals:�Modified Independent with ADL�s, ambulation, transfers�
Discharge Destination: Acute inpatient rehabilitation
A total of 60 minutes were spent with the patient preparing for the evaluation, obtaining history, performing examination and evaluation, counseling, data review, case management, care coordination, order dispatcher chief, and EMR documentation.
--- NOTE | 2025-02-03 14:37 | VATNOTE ---
PICC tip is in good position in the SVC per radiology report. PCN notified by tiger text to change all IV tubing prior to connecting to the PICC line and to remove all ipsilateral IV sites.
--- NOTE | 2025-02-03 14:57 | CM ---
Addendum entered by Neli Dial RN 02/03/25 15:53:
CM spoke with Lakshmi from [facility], unable to accept patient tonight. Need to call in morning to see if bed available. ([phone]).
Original Note:
Reviewed the chart notes and spoke with the patient at the bedside. Patient's listed insurance is commercial. No IMM indicated. Auth obtained for [facility] from 02/03-02/08; NRD 02/08; Call clinical review to [phone]; Auth #
[id number]; [facility] auth # [id number]. Message left with [facility] regarding approval. Await phone numbers for call and report.
Plan: Discharge to [facility]
[2025-02-03 15:40] VITALS: BP 124/54
[2025-02-03 16:28] LABS: Glucose - Point of Care 143 mg/dl (70-99)
[2025-02-03] MEDS: CUBICIN 16 MG IV (16:34)
[2025-02-03] MEDS: SENOKOT 17.2 MG PO (20:51)
[2025-02-03] MEDS: COLACE 100 MG PO (20:51)
[2025-02-03 21:24] LABS: Glucose - Point of Care 110 mg/dl (70-99)
[2025-02-03] MEDS: MELATONIN 3 MG PO (22:53)
[2025-02-03] MEDS: ROXICODONE 10 MG PO (23:04)
[2025-02-03 23:20] VITALS: BP 149/66
[2025-02-04 07:00] VITALS: BP 117/59
[2025-02-04 07:45] LABS: Glucose - Point of Care 73 mg/dl (70-99)
[2025-02-04] MEDS: VISBIOME 2 CAP PO (09:07)
[2025-02-04] MEDS: FIRVANQ 125 MG PO ×2 (09:07→20:42)
[2025-02-04] MEDS: LANTUS 0.3 UNITS SC (09:07)
[2025-02-04] MEDS: FARXIGA 10 MG PO (09:08)
[2025-02-04] MEDS: VITAMIN D3 (cholecalciferol) 25 MCG PO (09:08)
[2025-02-04] MEDS: LOW STRENGTH ASPIRIN 81 MG PO (09:08)
[2025-02-04] MEDS: FLOMAX 0.4 MG PO (09:08)
[2025-02-04] MEDS: PRANDIN 1 MG PO ×3 (09:08→16:31)
[2025-02-04] MEDS: XARELTO 2.5 MG PO ×2 (09:08→20:41)
[2025-02-04] MEDS: FLORASTOR 500 MG PO (09:08)
[2025-02-04] MEDS: GLUCOPHAGE 500 MG PO ×2 (09:09→16:31)
[2025-02-04] MEDS: COLACE PO ×2 (09:09→09:27)
[2025-02-04] MEDS: SENOKOT PO ×2 (09:09→09:28)
[2025-02-04] MEDS: NOVOLOG FLEXPEN-MODERATE RESISTANCE SC ×2 (09:09→11:36)
[2025-02-04] MEDS: MIRALAX PO (09:23)
--- NOTE | 2025-02-04 10:09 | CM ---
Reviewed the chart notes and spoke with Lakshmi with [facility]. She will check on bed availability for today. CM continues to be available to patient/family and is monitoring medical plan for needs at discharge.
Plan: Discharge to [facility] once a bed is available. Precert obtained and provided to [facility].
[2025-02-04 11:29] LABS: Glucose - Point of Care 111 mg/dl (70-99)
[2025-02-04 12:13] LABS: Hemoglobin 9.3 g/dL (13.0-18.0)
[2025-02-04 12:32] VITALS: BP 118/65; PULSE 70; O2SAT 100
[2025-02-04 12:33] VITALS: BP 118/65; PULSE 72; O2SAT 100
--- NOTE | 2025-02-04 14:37 | W.PN.HOSP.TC ---
Today's Communication/Plan
-
Hemoglobin has been stable.
Continue antibiotics
Physical therapy
Pending discharge to detention facility
Assessment / Plan
Assessment / Plan
79-year-old man with nonhealing right foot wound urinary symptoms. He was hospitalized in April 2020 for with right heel wound/osteomyelitis underwent debridement and right SFA to peroneal bypass. He also received 6 weeks of IV vancomycin and
meropenem for ESBL E. coli. Subsequent arteriogram in November 2024 showed patent vessels. He goes to [facility] for wound care. He was recently seen at [facility] wound VAC was removed.
# Diabetic foot infection
Nonhealing right ulcer/osteomyelitis
Sepsis secondary to MRSA bacteremia
IV meropenem discontinued
Continue daptomycin treatment of MRSA bacteremia at least through 03/08/25
Blood cultures from 01/25/2025 with MRSA
Blood cultures from 01/28/2025-negative so far
Echo 01/25/2025-normal biventricular size and systolic function without regional wall motion abnormality. Mild aortic stenosis. No significant change from 02/20/2023
# ASCVD/PAD
Status post bilateral lower extremity bypass surgeries angioplasty and stent in the past.
Status post right BKA on 01/29/2025 by .
Pain control.
Continue statin, aspirin.Restarted Xarelto 02/01/25
# Mild hypoxic respiratory insufficiency secondary to postop state and atelectasis. Has been Off O2.
# UTI ruled out -history of enlarged prostate bladder scan and straight cath as needed. CX neg
# Mild hyperkalemia- Better with Lokelma. If potassium goes high again will need low potassium diet to be restarted
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
Accu-Cheks and sliding scale coverage
Patient is on Xigduo , Lantus 30 units daily, Prandin 1 mg 3 times daily as outpatient
Lantus 30 units, metformin and Prandin , Farxiga plus sliding scale ordered
# Acute on chronic microcytic anemia
Transfused 1 unit of packed red blood cells this admission 01/24/25, One more ordered for 02/02/25
No clear source of bleeding, possible acute post op blood loss anemia on chronic anemia
Rectal heme neg.
# History of intracranial/subdural hematoma
# Cognitive dysfunction
# H/O C Diff- On PO Vanco Prophylaxis while on AB.
# Enlarged prostate, Microscopic hematuria-ultrasound of the urinary bladder showed 6 X 1.8 X 1.7 cm lobulated echogenic focus. May represent clot or possible mass. No hydronephrosis or sonographic evidence of suspicious renal lesion.
Sees Joe Beauchamp as OP.
Urology eval appreciated. Outpatient cystoscopy recommended by and , unless pt develops xiao hematuria.
# Abnormal LFTs likely secondary to sepsis-improved
# Vitamin D deficiency-replace
# DVT prophylaxis-Eliquis
# Full code
D/W RN
Anticipated Discharge: Within 24 hours
Subjective/Interval History
-
Date of Service: February 04, 2025
Objective Data
-
Labs:
Laboratory Results
02/04/25
12:00
Hgb 9.3 L
Vital Signs:
Vital Signs
Temp Pulse Resp BP Pulse Ox
97.9 F 69 16 117/59 98
02/04/25 07:00 02/04/25 07:00 02/04/25 07:00 02/04/25 07:00 02/04/25 12:11
I&O
02/03/25 02/04/25 02/05/25
06:59 06:59 06:59
Intake Total 1210 / 1210 1380 / 1380
Output Total 2450 / 2450 2074 / 2074
Balance -1240 / -1240 -695 / -695
Physical Exam
-
General: Well Developed, Well Nourished and No Apparent Distress
HEENT: Normocephalic and Atraumatic
Respiratory: Clear to Auscultation; Negative Wheezes or Rhonchi
Cardiac: Irregular Rhythm
GI: Soft, Nontender, Nondistended and Normal Bowel Sounds
Musculoskeletal: No Clubbing, No Cyanosis, No Edema and Other (right BKA)
Neuro: Awake
--- NOTE | 2025-02-04 15:28 | W.PN.ID1 ---
Date of Service
Date of Service: February 04, 2025
Today's Communication
Continue antibiotics.
Assessment / Plan
Leukocytosis
Recent history of C. difficile
Chronic right heel wound
- s/p BKA
MRSA bacteremia (01/22, 01/25)
- urine vs (R) foot source
DM
Diabetic neuropathy,
HLD
PAD
Subdural hematoma
Recommendations:
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
Blood culture on 01/25 positive.
01/28 bcx x 2 neg to date
Echocardiogram without evidence of vegetation although mitral valve leaflets and aortic valve leaflets noted to be thickened. ESR and CRP elevated.
Would continue with daptomycin in the treatment of MRSA bacteremia through 03/08/25. Would treat 6 weeks given sustained bacteremia, elevated ESR/CRP and ECHO findings.
Will hold statin while on daptomycin.
Will follow weekly BMP, CBC with differential, ESR and CRP.
Continue prophylactic oral vancomycin given recent history of C. difficile.
����������������������������������������������������������
Chief Complaint
-: Bacteremia
Subjective / Review of Systems
Review of Systems: No Fever
Vital Signs / Physical Exam
Vital Signs
Vital Signs
Temp Pulse Resp BP Pulse Ox
97.9 F 69 16 117/59 98
02/04/25 07:00 02/04/25 07:00 02/04/25 07:00 02/04/25 07:00 02/04/25 12:11
Physical Exam
Constitutional: No Acute Distress, Comfortable, Chronically Ill and Non-toxic
Eyes: Sclera Anicteric
Cardiovascular: S1/S2; Negative S3/S4
Pulmonary: Clear and Non Labored
Gastrointestinal: Soft and Non Tender
Extremities: Edema
Wound: Other (Right BKA stump protector in place.)
Psychological: Calm
Objective Data
Lab Data
Lab Results
02/04/25 12:00
02/02/25 05:42
ESR 118 mm/hour (0-20) H 02/02/25 05:43
Estimated Creat Clear 94 ml/min 02/02/25 05:42
Lactic Acid 1.1 mmol/L (0.7-2.0) 01/23/25 01:37
Total Bilirubin 0.4 mg/dl (0.2-1.3) 01/29/25 05:36
AST 20 U/L (17-59) 01/29/25 05:36
ALT 38 U/L (0-50) 01/29/25 05:36
Alkaline Phosphatase 103 U/L (38-126) 01/29/25 05:36
C-Reactive Protein 142.20 mg/L (0.0-10.00) H 02/02/25 05:42
Most recent labs reviewed.
Micro Results:
01/28/25 14:03 Blood Culture - Final
Blood/Venous No Growth - Final Report
01/28/25 12:33 Blood Culture - Final
Blood/Venous No Growth - Final Report
01/25/25 07:05 Blood Culture - Final
Blood/Venous Staph aureus MRSA
Gram Stain - Final
01/29/25 15:20 Urine Culture - Final
Urine Yeast
01/22/25 23:15 Blood Culture - Final
Blood/Venous Staph aureus MRSA
Gram Stain - Final
01/22/25 23:15 Blood Culture - Final
Blood/Venous Staph aureus MRSA
Gram Stain - Final
01/24/25 12:14 Blood Culture - Final
Blood/Venous No Growth - Final Report
01/24/25 11:39 Blood Culture - Final
Blood/Venous No Growth - Final Report
01/22/25 23:15 Urine Culture - Final
Urine
Imaging:
4/21/25 ECHO (TTE): Normal biventricular size and systolic function. No regional wall motion abnormality. Mild aortic stenosis. EF approximately 65%. Thickened mitral valve leaflets. Thickened aortic valve leaflets with restricted motion. No
intracardiac mass or thrombus formation seen. Please see full dictation for additional detail.
01/23/2025 CXR (2 view): No focal consolidation, pleural effusion or pneumothorax noted. Please see full dictation for additional detail.
[2025-02-04 15:31] VITALS: BP 119/61
[2025-02-04] MEDS: CUBICIN 16 MG IV (16:31)
[2025-02-04] MEDS: ROXICODONE 10 MG PO (16:57)
[2025-02-04 17:35] LABS: Glucose - Point of Care 226 mg/dl (70-99)
[2025-02-04] MEDS: NOVOLOG FLEXPEN-MODERATE RESISTANCE 3 UNITS SC (17:48)
[2025-02-04 17:53] LABS: Urine Albumin 3+ (Neg - Trace); Urine Bilirubin Negative (Negative); Urine Character Bloody (Clear); Urine Color Red; Urine Glucose 4+ (Negative); Urine Ketone Negative (Negative); Urine Leukocyte 3+ (Negative); Urine Nitrite Positive (Negative); Urine Occult Blood 4+ (Negative); Urine Specific Gravity 1.015 (<1.030); Urine Urobilinogen Negative (Neg - 1+)
[2025-02-04 18:02] LABS: Urine Red Blood Cell >100 /HPF (0-2)
[2025-02-04] MEDS: TYLENOL 650 MG PO (20:41)
[2025-02-04] MEDS: COLACE 100 MG PO (20:41)
[2025-02-04] MEDS: SENOKOT 17.2 MG PO (20:42)
[2025-02-04 21:19] LABS: Glucose - Point of Care 145 mg/dl (70-99)
[2025-02-04] MEDS: MELATONIN 3 MG PO (22:13)
[2025-02-04 23:25] VITALS: BP 102/47
--- NOTE | 2025-02-05 03:42 | PTCARENOTE ---
Pt and daughter are expressing concerns regarding recurring hematuria. Recent US Kidney displayed possible mass and/or clot. Per Hospitalist Progress Note, 'Outpatient cystoscopy recommended by and , unless pt develops xiao
hematuria.' Pt and daughter are requesting to have cystoscopy performed before discharge. House CENTRAL STERILE TECHNICIAN made aware, labs ordered for AM. This was discussed w/ patient. This RN will pass along to oncoming shift.
--- NOTE | 2025-02-05 05:30 | PTCARENOTE ---
Pt and daughter are expressing concerns regarding recurring hematuria. House EXTRACTOR TENDER RAW STOCK made aware and labs ordered for this AM. Recent US Kidney displayed possible mass and/or clot. Per Hospitalist Progress Note, 'Outpatient cystoscopy recommended by
and , unless pt develops xiao hematuria.' Pt and daughter are requesting to have cystoscopy performed before discharge. This RN will pass along to oncoming shift.
[2025-02-05 06:27] LABS: Hematocrit 30.3 % (39.0-52.0); Hemoglobin 9.5 g/dL (13.0-18.0); Mean Corp Hgb Conc. 31.4 g/dL (33.0-37.0); Mean Corpuscular Hgb 24.6 pg (27.0-31.0); Mean Corpuscular Volume 78.5 fL (80.0-94.0); Mean Platelet Volume 9.3 fL (7.4-10.4); Platelet Count 283 10^3/uL (130-400); Red Blood Cell Count 3.86 10^6/uL (4.70-6.10); Red Cell Dist. Width 18.6 % (11.5-14.5); White Blood Cell Count 8.4 10^3/uL (4.8-10.8)
[2025-02-05 06:55] LABS: Blood Urea Nitrogen 22 mg/dl (9-20); Calcium 8.2 mg/dl (8.4-10.2); Carbon Dioxide 29 mmol/L (22-30); Chloride 101 mmol/L (98-107); Estimated Creatinine Clearance 82 ml/min; Glucose 128 mg/dl (70-99); Potassium 4.8 mmol/L (3.5-5.1); Sodium 137 mmol/L (135-145); eGFR > 60.00
[2025-02-05 07:50] VITALS: BP 124/53
[2025-02-05 07:54] LABS: Glucose - Point of Care 117 mg/dl (70-99)
[2025-02-05] MEDS: NOVOLOG FLEXPEN-MODERATE RESISTANCE SC ×3 (07:59→17:36)
[2025-02-05] MEDS: FLOMAX 0.4 MG PO (08:03)
[2025-02-05] MEDS: PRANDIN 1 MG PO ×3 (08:03→16:30)
[2025-02-05] MEDS: FLORASTOR 500 MG PO (08:03)
[2025-02-05] MEDS: LOW STRENGTH ASPIRIN 81 MG PO (08:03)
[2025-02-05] MEDS: FARXIGA 10 MG PO (08:03)
[2025-02-05] MEDS: GLUCOPHAGE 500 MG PO (08:03)
[2025-02-05] MEDS: LANTUS 0.3 UNITS SC (08:03)
[2025-02-05] MEDS: FIRVANQ 125 MG PO ×2 (08:03→22:40)
[2025-02-05] MEDS: VISBIOME 2 CAP PO (08:03)
[2025-02-05] MEDS: VITAMIN D3 (cholecalciferol) 25 MCG PO (08:03)
[2025-02-05] MEDS: MIRALAX PO (08:16)
[2025-02-05] MEDS: SENOKOT PO ×3 (08:16→22:44)
[2025-02-05] MEDS: COLACE PO ×3 (08:16→22:44)
--- NOTE | 2025-02-05 11:25 | CM ---
Addendum entered by Neli Dial RN 02/05/25 13:46:
Call report to: [phone]
Fax report to: [phone]
Addendum entered by Neli Dial RN 02/05/25 12:20:
Updated clinicals, labs, PICC information sent via [facility] to [facility].
Original Note:
Reviewed the chart notes. Per attending, discharge cancelled today due to hematuria. Soledad with [facility] informed. Per Soledad, [facility] can take the patient over the weekend if discharged. CM continues to be available to patient/family
and is monitoring medical plan for needs at discharge.
Plan: Discharge to [facility] when medically stable with auth.
[2025-02-05 11:54] LABS: Glucose - Point of Care 132 mg/dl (70-99)
--- NOTE | 2025-02-05 12:12 | W.PN.HOSP.TC ---
Today's Communication/Plan
-
Gross hematuria
Monitor for retention
Monitor hemoglobin
Hold Xarelto
Ongoing urologic workup.
Discussed with urology
Patient's daughter updated.
Assessment / Plan
Assessment / Plan
Impression:
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
MRSA bacteremia secondary to infected lower extremity wound.
Sepsis secondary to above present on admission
Bladder mass with gross hematuria and anticoagulation with factor Xa inhibitor
Severe PAD
Acute on chronic anemia with microcytosis, multifactorial due to acute blood loss/postoperative
Acute hypoxic respiratory insufficiency postoperatively secondary to lung toxicity now resolved.
Hyperkalemia improved.
Other conditions:
Diabetes type 2 with neuropathy.
Chronic microcytic anemia.
Prior history of C. difficile infection
BPH.
Mild cognitive dysfunction
History of subdural hematoma
Plan:
Gross hematuria developed on 02/04. Previously with microhematuria while on Xarelto
CT urography 02/05 findings consistent with bladder mass and what looks like distant metastatic disease including necrotic lymph nodes and bony lytic metastasis.
So far no evidence of clot retention.
Normal renal function.
Discussed with urology with tentative plan for cystoscopy and biopsy.
Xarelto placed on hold on 02/05
Continue bladder scan monitor for clot retention
Continue Flomax
Follow hemoglobin
Consider oncology consultation
Nonhealing right lower extremity ulcer and this
Sepsis present on admission secondary to above present on admission now resolved.
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
Blood cultures cleared on 01/28
Echocardiogram with preserved LVEF no clear regurgitation, although with thickening mitral leaflets.
Noted elevated inflammatory markers.
Antibiotics consolidated to daptomycin through 03/08/2025 to complete total of 6 weeks of therapy. Monitor CK while on
On oral vancomycin for prophylaxis (prior history of C. difficile)
Continue probiotics
Severe PAD.
Status post right BKA.
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
On aspirin and Xarelto.
Ideally resume anticoagulation with Xarelto GARETT with required urologic workup.
IDDM.
Recent hemoglobin A1c 8.9.
Preadmission regimen including Xigduo, Prandin, Lantus
Hold metformin given contrast exposure with CT urogram on 02/05
Continue Lantus
Continue Prandin
Continue basal bolus protocol with serial Accu-Cheks
Acute on chronic anemia multifactorial due to postoperative blood loss as well as ongoing micro�gross hematuria
Iron stores with very mild iron deficiency also evidence for anemia of chronic disease.
Status post transfusion total of 2 units of packed red blood cells over this hospitalization with appropriate response.
Rectal heme-negative
Noted transient and isolated ALT elevation.
Imaging with no evidence of hepatic abnormalities.
Full code.
Anticipated Discharge: > 48 hours
Subjective/Interval History
-
Date of Service: February 05, 2025
Objective Data
-
Labs:
Laboratory Results
02/05/25
06:06
WBC 8.4
Hgb 9.5 L
Hct 30.3 L
Plt Count 283
Sodium 137
Potassium 4.8
Chloride 101
Carbon Dioxide 29
BUN 22 H
Creatinine 0.8
Glucose 128 H
Calcium 8.2 L
Vital Signs:
Vital Signs
Temp Pulse Resp BP Pulse Ox
98.4 F 51 17 124/53 96
02/05/25 07:50 02/05/25 07:50 02/05/25 07:50 02/05/25 07:50 02/05/25 07:50
I&O
02/04/25 02/05/25 02/06/25
06:59 06:59 06:59
Intake Total 1380 / 1380 660 / 660
Output Total 2074
Balance -695 / -695 -1240 / -1240
Physical Exam
-
General: Well Developed and No Apparent Distress
HEENT: Normocephalic, Atraumatic and Moist Mucous Membranes
Respiratory: Clear to Auscultation
Cardiac: Regular Rhythm and S1/S2; Negative Murmur, Rub or Gallop
GI: Soft, Nontender, Nondistended and Normal Bowel Sounds; Negative Organomegaly
Rectal: Deferred by Provider
Musculoskeletal: No Clubbing, No Cyanosis, No Edema and Other (right BKA)
Skin: Negative Rash
Neuro: Nonfocal/Grossly Intact
[2025-02-05 15:56] VITALS: BP 116/42
[2025-02-05] MEDS: CUBICIN 16 MG IV (16:28)
--- NOTE | 2025-02-05 16:30 | W.PN.URO.CBU ---
Today's Communication / Plan
-
- Continue holding Xarelto (prefer 3-4 days washout prior to surgical intervention)
- tentative plan for OR for TURBT mid next week for pathologic diagnosis
- Medical Oncology consult re: CT findings and consideration of IR biopsy of bone lesions for pathologic diagnosis
Discussed extensively w/ patient and daughter (>50 min).
D/w Dr. Wagner.
Assessment / Plan
-
Bladder tumor suspicious for malignancy
Hematuria
Pelvic lymphadenopathy + pelvic osteolytic lesions indicative of metastatic disease
Urology re-consulted re: new hematuria o/n on Xarelto (02/04).
02/05: CT Urogram requested =>
- Lobulated mass within the urinary bladder, measuring 6 x 2.3 x 2.0 cm, as detailed above, highly concerning for bladder carcinoma.
- Necrotic lymph node within the right inguinal region is partially imaged, and is concerning for lymphatic metastasis.
- Lytic lesions throughout the visualized osseous structures, consistent with osseous metastasis.
Voiding clear yellow urine this afternoon.
Previously saw Dr. Hallman @[facility] in last 12 months - PSA 'very low' per patient (daughter confirmed <1), and MARIO was normal.
CT findings indicate likely metastatic bladder cancer as no additional primary lesions noted.
Detailed discussion had w/ patient and daughter (Teetee) re: CT findings indicative of bladder tumor suspicious for bladder cancer in addition to LAD and osteolytic lesions indicative of metastatic disease.
Diagnosis
-
Date of Service: February 05, 2025
-
Patient Diagnosis:
Bladder tumor suspicious for malignancy
Hematuria
Pelvic lymphadenopathy + pelvic osteolytic lesions indicative of metastatic disease
Subjective
-
Voided punch-colored urine yesterday - now clear yellow today.
Denies dysuria.
Objective
-
Vital Signs
Temp Pulse Resp BP Pulse Ox
97.8 F 45 16 116/42 99
02/05/25 15:56 02/05/25 16:25 02/05/25 15:56 02/05/25 15:56 02/05/25 15:56
Intake and Output
02/04/25 02/05/25 02/06/25
06:59 06:59 06:59
Intake Total 1380 / 1380 660 / 660 600 / 600
Output Total 20740 / 0 900 / 900
Balance -695 / -695 -1240 / -1240 -300 / -300
Intake:
Oral fluids 1380 / 1380 660 / 660 600 / 600
Output:
Urine, Voided 2074 / 0 900 / 900
Other:
Number of approximated MODERATE 1
amounts of urine
Laboratory Results
02/05/25 06:06
02/05/25 06:06
Physical Exam
-
General - well developed, well nourished, no acute distress
Abdomen - soft, non-tender, non-distended
Genitalia - normal
Skin - warm & dry with no rash
Neuro - AOx3, no motor deficits
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
Counseling
-
Total discussion time >[address]/labs review, and extensive patient education/counseling/coordination of care.
Care Review
Data Reviewed
Discussed with: Hospitalist, Nursing and Family
CT Scan: Report Pers Reviewed and Image Pers Reviewed
Total Time Spent with Patient (in minutes): 55
[2025-02-05 17:27] LABS: Glucose - Point of Care 87 mg/dl (70-99)
--- NOTE | 2025-02-05 17:46 | W.PN.ID1 ---
Date of Service
Date of Service: February 05, 2025
Today's Communication
Continue daptomycin.
Assessment / Plan
Leukocytosis
Recent history of C. difficile
Chronic right heel wound
- s/p BKA
MRSA bacteremia (01/22, 01/25)
- urine vs (R) foot source
DM
Diabetic neuropathy,
HLD
PAD
Subdural hematoma
Recommendations:
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
Blood culture on 01/25 positive.
01/28 bcx x 2 neg to date
Echocardiogram without evidence of vegetation although mitral valve leaflets and aortic valve leaflets noted to be thickened. ESR and CRP elevated.
Continue daptomycin in the treatment of MRSA bacteremia through 03/08/25. Would treat 6 weeks given sustained bacteremia, elevated ESR/CRP and ECHO findings.
Will hold statin while on daptomycin.
Will follow weekly BMP, CBC with differential, ESR and CRP.
Continue prophylactic oral vancomycin given recent history of C. difficile.
Recent CT imaging of the abdomen and pelvis has revealed a bladder tumor along with pelvic lymph adenopathy. Patient for TURBT mid next week.
����������������������������������������������������������
Chief Complaint
-: Bacteremia
Subjective / Review of Systems
Review of Systems: No Fever and No Chills
Vital Signs / Physical Exam
Vital Signs
Vital Signs
Temp Pulse Resp BP Pulse Ox
97.8 F 45 16 116/42 99
02/05/25 15:56 02/05/25 16:25 02/05/25 15:56 02/05/25 15:56 02/05/25 15:56
Physical Exam
Constitutional: No Acute Distress, Comfortable, Chronically Ill and Non-toxic
Eyes: Sclera Anicteric
Cardiovascular: S1/S2; Negative S3/S4
Pulmonary: Clear and Non Labored
Gastrointestinal: Soft and Non Tender
Extremities: Edema
Wound: Other (Right BKA stump protector in place.)
Psychological: Calm
Objective Data
Lab Data
Lab Results
02/05/25 06:06
02/05/25 06:06
ESR 118 mm/hour (0-20) H 02/02/25 05:43
Estimated Creat Clear 82 ml/min 02/05/25 06:06
Lactic Acid 1.1 mmol/L (0.7-2.0) 01/23/25 01:37
Total Bilirubin 0.4 mg/dl (0.2-1.3) 01/29/25 05:36
AST 20 U/L (17-59) 01/29/25 05:36
ALT 38 U/L (0-50) 01/29/25 05:36
Alkaline Phosphatase 103 U/L (38-126) 01/29/25 05:36
C-Reactive Protein 142.20 mg/L (0.0-10.00) H 02/02/25 05:42
Most recent labs reviewed.
Micro Results:
02/04/25 17:27 Urine Culture - Final
Urine No Significant Growth
01/28/25 14:03 Blood Culture - Final
Blood/Venous No Growth - Final Report
01/28/25 12:33 Blood Culture - Final
Blood/Venous No Growth - Final Report
01/25/25 07:05 Blood Culture - Final
Blood/Venous Staph aureus MRSA
Gram Stain - Final
01/29/25 15:20 Urine Culture - Final
Urine Yeast
01/22/25 23:15 Blood Culture - Final
Blood/Venous Staph aureus MRSA
Gram Stain - Final
01/22/25 23:15 Blood Culture - Final
Blood/Venous Staph aureus MRSA
Gram Stain - Final
01/24/25 12:14 Blood Culture - Final
Blood/Venous No Growth - Final Report
01/24/25 11:39 Blood Culture - Final
Blood/Venous No Growth - Final Report
01/22/25 23:15 Urine Culture - Final
Urine
Imaging:
01/25/25 ECHO (TTE): Normal biventricular size and systolic function. No regional wall motion abnormality. Mild aortic stenosis. EF approximately 65%. Thickened mitral valve leaflets. Thickened aortic valve leaflets with restricted motion. No
intracardiac mass or thrombus formation seen. Please see full dictation for additional detail.
01/23/2025 CXR (2 view): No focal consolidation, pleural effusion or pneumothorax noted. Please see full dictation for additional detail.
[2025-02-05 21:49] LABS: Glucose - Point of Care 132 mg/dl (70-99)
[2025-02-05] MEDS: MELATONIN 3 MG PO (22:40)
[2025-02-05 23:31] VITALS: BP 119/56
[2025-02-06 06:38] LABS: % Basophils 0.9 % (0-2); % Eosinophils 4.5 % (0-6); % Immature Granulocytes 0.3 % (0-0.5); % Lymphocytes 24.6 % (20.5-51.1); % Monocytes 13.3 % (1.7-9.3); % Neutrophils 56.4 % (42.2-75.2); Absolute Basophils 0.1 10^3/uL (0-0.2); Absolute Eosinophils 0.3 10^3/uL (0-0.7); Absolute Lymphocytes 1.6 10^3/uL (1.2-3.4); Absolute Monocytes 0.9 10^3/uL (0.1-0.6); Absolute Neutrophils 3.6 10^3/uL (1.4-6.5); Hemoglobin 8.6 g/dL (13.0-18.0); Mean Corp Hgb Conc. 31.9 g/dL (33.0-37.0); Mean Corpuscular Hgb 24.6 pg (27.0-31.0); Mean Corpuscular Volume 77.4 fL (80.0-94.0); Mean Platelet Volume 9.7 fL (7.4-10.4); Nucleated Red Blood Cells % 0 % (-); Platelet Count 272 10^3/uL (130-400); Red Blood Cell Count 3.49 10^6/uL (4.70-6.10); Red Cell Dist. Width 18.7 % (11.5-14.5); White Blood Cell Count 6.5 10^3/uL (4.8-10.8)
[2025-02-06 07:08] LABS: Blood Urea Nitrogen 22 mg/dl (9-20); Calcium 7.9 mg/dl (8.4-10.2); Carbon Dioxide 30 mmol/L (22-30); Chloride 101 mmol/L (98-107); Estimated Creatinine Clearance 82 ml/min; Glucose 60 mg/dl (70-99); Potassium 4.6 mmol/L (3.5-5.1); Sodium 137 mmol/L (135-145); eGFR > 60.00
[2025-02-06 07:23] LABS: Glucose - Point of Care 66 mg/dl (70-99)
[2025-02-06 07:25] VITALS: BP 121/59
[2025-02-06 07:35] LABS: PSA, Total - Diagnostic 0.41 ng/ml (0.0-4.0)
[2025-02-06 07:41] LABS: Glucose - Point of Care 103 mg/dl (70-99)
[2025-02-06] MEDS: NOVOLOG FLEXPEN-MODERATE RESISTANCE SC ×3 (07:59→16:38)
[2025-02-06] MEDS: PRANDIN 1 MG PO ×3 (08:00→16:37)
[2025-02-06] MEDS: FIRVANQ 125 MG PO ×2 (08:00→20:14)
[2025-02-06] MEDS: VITAMIN D3 (cholecalciferol) 25 MCG PO (08:00)
[2025-02-06] MEDS: SENOKOT 17.2 MG PO (08:00)
[2025-02-06] MEDS: FARXIGA 10 MG PO (08:00)
[2025-02-06] MEDS: FLORASTOR 500 MG PO (08:00)
[2025-02-06] MEDS: FLOMAX 0.4 MG PO (08:01)
[2025-02-06] MEDS: VISBIOME 2 CAP PO (08:01)
[2025-02-06] MEDS: MIRALAX 17 GRAMS PO (08:01)
[2025-02-06] MEDS: COLACE 100 MG PO (08:01)
[2025-02-06] MEDS: LOW STRENGTH ASPIRIN 81 MG PO (08:01)
[2025-02-06] MEDS: LANTUS 0.3 UNITS SC (08:09)
--- NOTE | 2025-02-06 09:21 | W.PN.ID1 ---
Date of Service
Date of Service: February 06, 2025
Today's Communication
Continue daptomycin.
Assessment / Plan
Leukocytosis
Recent history of C. difficile
Chronic right heel wound
- s/p BKA
MRSA bacteremia (01/22, 01/25)
- urine vs (R) foot source
DM
Diabetic neuropathy,
HLD
PAD
Subdural hematoma
Recommendations:
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
Blood culture 01/25 positive; 01/28 bcx x 2 neg.
Echocardiogram without evidence of vegetation although mitral valve leaflets and aortic valve leaflets noted to be thickened. ESR and CRP elevated.
Continue daptomycin in the treatment of MRSA bacteremia through 03/08/25. Would treat 6 weeks given sustained bacteremia, elevated ESR/CRP and ECHO findings.
Will hold statin while on daptomycin.
Will follow weekly BMP, CBC with differential, ESR and CRP.
Continue prophylactic oral vancomycin given recent history of C. difficile.
Recent CT imaging of the abdomen and pelvis has revealed a bladder tumor along with pelvic lymph adenopathy. Patient for TURBT mid next week.
Hematuria improved.
����������������������������������������������������������
Chief Complaint
-: Bacteremia
Subjective / Review of Systems
Patient seen and examined. Reports no further hematuria. Denies dysuria.
Review of Systems: No Fever, No Chills and No Chest Pain
Vital Signs / Physical Exam
Vital Signs
Vital Signs
Temp Pulse Resp BP Pulse Ox
97.9 F 38 16 121/59 99
02/06/25 07:25 02/06/25 07:25 02/06/25 07:25 02/06/25 07:25 02/06/25 07:25
Physical Exam
Constitutional: No Acute Distress, Comfortable, Chronically Ill and Non-toxic
Eyes: Sclera Anicteric
Pulmonary: Clear and Non Labored
Gastrointestinal: Soft and Non Tender
Extremities: Edema
Wound: Other (Right BKA stump protector in place.)
Psychological: Calm
Objective Data
Lab Data
Lab Results
02/06/25 05:56
02/06/25 05:56
ESR 118 mm/hour (0-20) H 02/02/25 05:43
Estimated Creat Clear 82 ml/min 02/06/25 05:56
Lactic Acid 1.1 mmol/L (0.7-2.0) 01/23/25 01:37
Total Bilirubin 0.4 mg/dl (0.2-1.3) 01/29/25 05:36
AST 20 U/L (17-59) 01/29/25 05:36
ALT 38 U/L (0-50) 01/29/25 05:36
Alkaline Phosphatase 103 U/L (38-126) 01/29/25 05:36
C-Reactive Protein 142.20 mg/L (0.0-10.00) H 02/02/25 05:42
Most recent labs reviewed.
Micro Results:
02/04/25 17:27 Urine Culture - Final
Urine No Significant Growth
01/28/25 14:03 Blood Culture - Final
Blood/Venous No Growth - Final Report
01/28/25 12:33 Blood Culture - Final
Blood/Venous No Growth - Final Report
01/25/25 07:05 Blood Culture - Final
Blood/Venous Staph aureus MRSA
Gram Stain - Final
01/29/25 15:20 Urine Culture - Final
Urine Yeast
01/22/25 23:15 Blood Culture - Final
Blood/Venous Staph aureus MRSA
Gram Stain - Final
01/22/25 23:15 Blood Culture - Final
Blood/Venous Staph aureus MRSA
Gram Stain - Final
01/24/25 12:14 Blood Culture - Final
Blood/Venous No Growth - Final Report
01/24/25 11:39 Blood Culture - Final
Blood/Venous No Growth - Final Report
01/22/25 23:15 Urine Culture - Final
Urine
Imaging:
01/25/25 ECHO (TTE): Normal biventricular size and systolic function. No regional wall motion abnormality. Mild aortic stenosis. EF approximately 65%. Thickened mitral valve leaflets. Thickened aortic valve leaflets with restricted motion. No
intracardiac mass or thrombus formation seen. Please see full dictation for additional detail.
01/23/2025 CXR (2 view): No focal consolidation, pleural effusion or pneumothorax noted. Please see full dictation for additional detail.
--- NOTE | 2025-02-06 11:03 | W.PN.HOSP.TC ---
Today's Communication/Plan
-
c/w IV ABx
Assessment / Plan
Assessment / Plan
Physical Exam
-
General: Well Developed and No Apparent Distress
HEENT: Normocephalic, Atraumatic and Moist Mucous Membranes
Respiratory: Clear to Auscultation
Cardiac: Regular Rhythm and S1/S2; Negative Murmur, Rub or Gallop
GI: Soft, Nontender, Nondistended and Normal Bowel Sounds; Negative Organomegaly
Rectal: Deferred by Provider
Musculoskeletal: No Clubbing, No Cyanosis, No Edema and Other (right BKA)
Skin: Negative Rash
Neuro: Nonfocal/Grossly Intact
Impression:
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
MRSA bacteremia secondary to infected lower extremity wound.
Sepsis secondary to above present on admission
Bladder mass with gross hematuria and anticoagulation with factor Xa inhibitor
Severe PAD
Acute on chronic anemia with microcytosis, multifactorial due to acute blood loss/postoperative
Acute hypoxic respiratory insufficiency postoperatively secondary to lung toxicity now resolved.
Hyperkalemia improved.
Other conditions:
Diabetes type 2 with neuropathy.
Chronic microcytic anemia.
Prior history of C. difficile infection
BPH.
Mild cognitive dysfunction
History of subdural hematoma
Plan:
Gross hematuria developed on 02/04. Previously with microhematuria while on Xarelto
CT urography 02/05 findings consistent with bladder mass and what looks like distant metastatic disease including necrotic lymph nodes and bony lytic metastasis.
So far no evidence of clot retention.
Normal renal function.
Discussed with urology with tentative plan for cystoscopy and biopsy.
Xarelto placed on hold on 02/05
Continue bladder scan monitor for clot retention
Continue Flomax
Follow hemoglobin
Consider oncology consultation
Nonhealing right lower extremity ulcer and this
Sepsis present on admission secondary to above present on admission now resolved.
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
Blood cultures cleared on 01/28
Echocardiogram with preserved LVEF no clear regurgitation, although with thickening mitral leaflets.
Noted elevated inflammatory markers.
Antibiotics consolidated to daptomycin through 03/08/2025 to complete total of 6 weeks of therapy. Monitor CK while on
On oral vancomycin for prophylaxis (prior history of C. difficile)
Continue probiotics
Severe PAD.
Status post right BKA.
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
On aspirin and Xarelto.
Ideally resume anticoagulation with Xarelto GARETT with required urologic workup.
IDDM.
Recent hemoglobin A1c 8.9.
Preadmission regimen including Xigduo, Prandin, Lantus
Hold metformin given contrast exposure with CT urogram on 02/05
Continue Lantus
Continue Prandin
Continue basal bolus protocol with serial Accu-Cheks
Acute on chronic anemia multifactorial due to postoperative blood loss as well as ongoing micro�gross hematuria
Iron stores with very mild iron deficiency also evidence for anemia of chronic disease.
Status post transfusion total of 2 units of packed red blood cells over this hospitalization with appropriate response.
Rectal heme-negative
Noted transient and isolated ALT elevation.
Imaging with no evidence of hepatic abnormalities.
Full code.
Total time spent to see the patient, examine the patient, review data and lab result, discuss treatment plan with the patient, nursing staff around 55 minutes
Anticipated Discharge: > 48 hours
Subjective/Interval History
-
Date of Service: February 06, 2025
Phantom pain in leg is not severe
No chest pain, no abd pain
No SOB
Objective Data
-
Labs:
Laboratory Results
02/06/25
05:56
WBC 6.5
Hgb 8.6 L
Hct 27.0 L
Plt Count 272
Sodium 137
Potassium 4.6
Chloride 101
Carbon Dioxide 30
BUN 22 H
Creatinine 0.8
Glucose 60 L
Calcium 7.9 L
Vital Signs:
Vital Signs
Temp Pulse Resp BP Pulse Ox
97.9 F 38 16 121/59 99
02/06/25 07:25 02/06/25 07:25 02/06/25 07:25 02/06/25 07:25 02/06/25 07:25
I&O
02/05/25 02/06/25 02/07/25
06:59 06:59 06:59
Intake Total 660 / 660 1560 / 1560
Output Total 1900 / 1900 1625 / 1625
Balance -1240 / -1240 -65 / -65
[2025-02-06 11:47] LABS: Glucose - Point of Care 145 mg/dl (70-99)
[2025-02-06 15:20] VITALS: BP 99/51
--- NOTE | 2025-02-06 15:25 | CM ---
Addendum entered by Darlene Nix 02/06/25 15:30:
Update from physician, most likely saturday for transfer. per Arabella patient will need [facility] authorization [facility] appropriate for [facility].
Original Note:
Cm received phone message from [facility] asking for patient date of transfer. Arabella [phone]. CM sent tt to physician to request update. Await response. CM will continue to follow for discharge planning needs.
Plan; transfer to [facility] when medically appropriate.
[2025-02-06 16:38] LABS: Glucose - Point of Care 77 mg/dl (70-99)
[2025-02-06] MEDS: CUBICIN 16 MG IV (16:38)
--- NOTE | 2025-02-06 18:57 | PTCARENOTE ---
pt with low HR this afternoon and morning. family concerned. pt family requesting to have heart monitor applied for overnight to assess HR during the night. RN who has this patient made aware. monitor applied.
[2025-02-06 19:21] VITALS: BP 117/54
[2025-02-06] MEDS: COLACE PO (20:14)
[2025-02-06] MEDS: SENOKOT PO (20:14)
[2025-02-06] MEDS: MELATONIN 3 MG PO (21:50)
[2025-02-06 21:54] LABS: Glucose - Point of Care 201 mg/dl (70-99)
[2025-02-06 23:45] VITALS: BP 129/60
[2025-02-07 03:07] VITALS: BP 114/52
[2025-02-07 07:25] VITALS: BP 122/52
[2025-02-07 07:43] LABS: Glucose - Point of Care 169 mg/dl (70-99)
[2025-02-07] MEDS: NOVOLOG FLEXPEN-MODERATE RESISTANCE 1 UNITS SC (08:22)
[2025-02-07] MEDS: LANTUS 0.3 UNITS SC (08:22)
[2025-02-07] MEDS: FIRVANQ 125 MG PO ×2 (08:22→20:13)
[2025-02-07] MEDS: PRANDIN 1 MG PO ×3 (08:23→16:53)
[2025-02-07] MEDS: FLORASTOR 500 MG PO (08:23)
[2025-02-07] MEDS: FARXIGA 10 MG PO (08:24)
[2025-02-07] MEDS: VITAMIN D3 (cholecalciferol) 25 MCG PO (08:24)
[2025-02-07] MEDS: FLOMAX 0.4 MG PO (08:24)
[2025-02-07] MEDS: COLACE PO (08:25)
[2025-02-07] MEDS: MIRALAX PO (08:25)
[2025-02-07] MEDS: SENOKOT PO (08:25)
[2025-02-07] MEDS: VISBIOME 2 CAP PO (08:25)
[2025-02-07] MEDS: LOW STRENGTH ASPIRIN 81 MG PO (08:25)
--- NOTE | 2025-02-07 08:59 | W.PN.HOSP.TC ---
Today's Communication/Plan
-
EKG to confirm bradycardia
Avoid opioid as possible, use Tylenol ( increase to 1 gm QIDPRN)
Assessment / Plan
Assessment / Plan
Physical Exam
-
General: Well Developed and No Apparent Distress
HEENT: Normocephalic, Atraumatic and Moist Mucous Membranes
Respiratory: Clear to Auscultation
Cardiac: Regular Rhythm and S1/S2; Negative Murmur, Rub or Gallop
GI: Soft, Nontender, Nondistended and Normal Bowel Sounds; Negative Organomegaly
Rectal: Deferred by Provider
Musculoskeletal: No Clubbing, No Cyanosis, No Edema and Other (right BKA)
Skin: Negative Rash
Neuro: Nonfocal/Grossly Intact
Psych: calm
Impression:
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
MRSA bacteremia secondary to infected lower extremity wound.
Sepsis secondary to above present on admission
Bladder mass with gross hematuria and anticoagulation with factor Xa inhibitor
Severe PAD
Acute on chronic anemia with microcytosis, multifactorial due to acute blood loss/postoperative
Acute hypoxic respiratory insufficiency postoperatively secondary to lung toxicity now resolved.
Hyperkalemia improved.
Other conditions:
Diabetes type 2 with neuropathy.
Chronic microcytic anemia.
Prior history of C. difficile infection
BPH.
Mild cognitive dysfunction
History of subdural hematoma
Plan:
Gross hematuria developed on 02/04. Previously with microhematuria while on Xarelto
CT urography 02/05 findings consistent with bladder mass and what looks like distant metastatic disease including necrotic lymph nodes and bony lytic metastasis.
So far no evidence of clot retention.
Normal renal function.
Discussed with urology with tentative plan for cystoscopy and biopsy.
Xarelto placed on hold on 02/05
Continue bladder scan monitor for clot retention
Continue Flomax
Follow hemoglobin, HGB 8-9
Nonhealing right lower extremity ulcer and this
Sepsis present on admission secondary to above present on admission now resolved.
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
Blood cultures cleared on 01/28
Echocardiogram with preserved LVEF no clear regurgitation, although with thickening mitral leaflets.
Noted elevated inflammatory markers.
Antibiotics consolidated to daptomycin through 03/08/2025 to complete total of 6 weeks of therapy. Monitor CK while on
On oral vancomycin for prophylaxis (prior history of C. difficile)
Continue probiotics
Bradycardia
Order EKG
Not on medication that commonly causes bradycardia, opioid might cause bradycardia
Severe PAD.
Status post right BKA.
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
On aspirin and Xarelto.
Ideally resume anticoagulation with Xarelto GARETT with required urologic workup.
IDDM.
Recent hemoglobin A1c 8.9.
Preadmission regimen including Xigduo, Prandin, Lantus
Hold metformin given contrast exposure with CT urogram on 02/05
Continue Lantus
Continue Prandin
Continue basal bolus protocol with serial Accu-Cheks
Acute on chronic anemia multifactorial due to postoperative blood loss as well as ongoing micro�gross hematuria
Iron stores with very mild iron deficiency also evidence for anemia of chronic disease.
Status post transfusion total of 2 units of packed red blood cells over this hospitalization with appropriate response.
Rectal heme-negative
Noted transient and isolated ALT elevation.
Imaging with no evidence of hepatic abnormalities.
Full code.
Total time spent to see the patient, examine the patient, review data and lab result, discuss treatment plan with the patient, nursing staff around 55 minutes
Anticipated Discharge: > 48 hours
Subjective/Interval History
-
Date of Service: February 07, 2025
No chest pain
No sob
Objective Data
-
Vital Signs:
Vital Signs
Temp Pulse Resp BP Pulse Ox
98.5 F 51 16 122/52 98
02/07/25 07:25 02/07/25 07:25 02/07/25 07:25 02/07/25 07:25 02/07/25 07:25
I&O
02/06/25 02/07/25 02/08/25
06:59 06:59 06:59
Intake Total 1560 / 1560 960 / 960
Output Total 1625 / 1625 725 / 725
Balance -65 / -65 235 / 235
[2025-02-07 11:05] VITALS: BP 104/50
--- NOTE | 2025-02-07 11:12 | W.PN.ID1 ---
Date of Service
Date of Service: February 07, 2025
Today's Communication
Continue daptomycin.
Assessment / Plan
Leukocytosis
Recent history of C. difficile
Chronic right heel wound
- s/p BKA
MRSA bacteremia (01/22, 01/25)
- urine vs (R) foot source
DM
Diabetic neuropathy,
HLD
PAD
Subdural hematoma
Recommendations:
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
Blood culture 01/25 positive; 01/28 bcx x 2 neg.
Echocardiogram without evidence of vegetation although mitral valve leaflets and aortic valve leaflets noted to be thickened. ESR and CRP elevated.
Continue daptomycin in the treatment of MRSA bacteremia through 03/08/25. Would treat 6 weeks given sustained bacteremia, elevated ESR/CRP and ECHO findings.
- Holding statin while on daptomycin.
Will follow weekly BMP, CBC with differential, ESR and CRP.
Continue prophylactic oral vancomycin given recent history of C. difficile.
Recent CT imaging of the abdomen and pelvis has revealed a bladder tumor along with pelvic lymph adenopathy. Patient for TURBT this week.
Hematuria improved.
����������������������������������������������������������
Chief Complaint
-: Bacteremia
Subjective / Review of Systems
Review of Systems: No Fever
Vital Signs / Physical Exam
Vital Signs
Vital Signs
Temp Pulse Resp BP Pulse Ox
98.5 F 51 16 122/52 98
02/07/25 07:25 02/07/25 07:25 02/07/25 07:25 02/07/25 07:25 02/07/25 07:25
Physical Exam
Constitutional: No Acute Distress and Comfortable
Eyes: Sclera Anicteric
Pulmonary: Clear and Non Labored
Gastrointestinal: Non Distended
Extremities: Edema
Wound: Other (Right BKA stump protector in place.)
Neurological: Awake and Alert
Psychological: Calm
Objective Data
Lab Data
Lab Results
02/06/25 05:56
02/06/25 05:56
ESR 118 mm/hour (0-20) H 02/02/25 05:43
Estimated Creat Clear 82 ml/min 02/06/25 05:56
Lactic Acid 1.1 mmol/L (0.7-2.0) 01/23/25 01:37
Total Bilirubin 0.4 mg/dl (0.2-1.3) 01/29/25 05:36
AST 20 U/L (17-59) 01/29/25 05:36
ALT 38 U/L (0-50) 01/29/25 05:36
Alkaline Phosphatase 103 U/L (38-126) 01/29/25 05:36
C-Reactive Protein 142.20 mg/L (0.0-10.00) H 02/02/25 05:42
Most recent labs reviewed.
Micro Results:
02/04/25 17:27 Urine Culture - Final
Urine No Significant Growth
01/28/25 14:03 Blood Culture - Final
Blood/Venous No Growth - Final Report
01/28/25 12:33 Blood Culture - Final
Blood/Venous No Growth - Final Report
01/25/25 07:05 Blood Culture - Final
Blood/Venous Staph aureus MRSA
Gram Stain - Final
01/29/25 15:20 Urine Culture - Final
Urine Yeast
01/22/25 23:15 Blood Culture - Final
Blood/Venous Staph aureus MRSA
Gram Stain - Final
01/22/25 23:15 Blood Culture - Final
Blood/Venous Staph aureus MRSA
Gram Stain - Final
01/24/25 12:14 Blood Culture - Final
Blood/Venous No Growth - Final Report
01/24/25 11:39 Blood Culture - Final
Blood/Venous No Growth - Final Report
01/22/25 23:15 Urine Culture - Final
Urine
Imaging:
01/25/25 ECHO (TTE): Normal biventricular size and systolic function. No regional wall motion abnormality. Mild aortic stenosis. EF approximately 65%. Thickened mitral valve leaflets. Thickened aortic valve leaflets with restricted motion. No
intracardiac mass or thrombus formation seen. Please see full dictation for additional detail.
01/23/2025 CXR (2 view): No focal consolidation, pleural effusion or pneumothorax noted. Please see full dictation for additional detail.
[2025-02-07 11:15] LABS: Glucose - Point of Care 215 mg/dl (70-99)
[2025-02-07] MEDS: NOVOLOG FLEXPEN-MODERATE RESISTANCE 3 UNITS SC (11:28)
[2025-02-07 15:20] VITALS: BP 109/46
[2025-02-07 16:52] LABS: Glucose - Point of Care 131 mg/dl (70-99)
[2025-02-07] MEDS: NOVOLOG FLEXPEN-MODERATE RESISTANCE SC (16:53)
[2025-02-07] MEDS: CUBICIN 16 MG IV (16:53)
[2025-02-07 19:35] VITALS: BP 118/50
[2025-02-07] MEDS: COLACE 100 MG PO (20:13)
[2025-02-07] MEDS: SENOKOT 17.2 MG PO (20:13)
[2025-02-07 21:32] LABS: Glucose - Point of Care 214 mg/dl (70-99)
[2025-02-07] MEDS: MELATONIN 3 MG PO (21:37)
[2025-02-07 23:15] VITALS: BP 111/59
[2025-02-08] VITALS (8 sets, daily range): BP systolic 112–150; BP diastolic 50–62; PULSE 84–89; O2SAT 100
[2025-02-08 05:50] LABS: Hematocrit 27.3 % (39.0-52.0); Hemoglobin 8.4 g/dL (13.0-18.0); Mean Corp Hgb Conc. 30.8 g/dL (33.0-37.0); Mean Corpuscular Hgb 24.5 pg (27.0-31.0); Mean Corpuscular Volume 79.6 fL (80.0-94.0); Mean Platelet Volume 9.4 fL (7.4-10.4); Platelet Count 263 10^3/uL (130-400); Red Blood Cell Count 3.43 10^6/uL (4.70-6.10); Red Cell Dist. Width 18.6 % (11.5-14.5); White Blood Cell Count 5.3 10^3/uL (4.8-10.8)
[2025-02-08 05:53] LABS: Blood Urea Nitrogen 32 mg/dl (9-20); Calcium 8.1 mg/dl (8.4-10.2); Carbon Dioxide 30 mmol/L (22-30); Chloride 104 mmol/L (98-107); Estimated Creatinine Clearance 82 ml/min; Glucose 115 mg/dl (70-99); Potassium 4.7 mmol/L (3.5-5.1); Sodium 138 mmol/L (135-145); eGFR > 60.00
[2025-02-08 07:34] LABS: Glucose - Point of Care 118 mg/dl (70-99)
[2025-02-08] MEDS: NOVOLOG FLEXPEN-MODERATE RESISTANCE SC ×2 (07:40→12:33)
--- NOTE | 2025-02-08 08:02 | W.PN.UPDATE ---
Update Note
Progress Note Update
Will review OR availability this week for TURBT to establish pathologic diagnosis of suspected bladder cancer.
Pending Cardiology/Hospitalist clearance.
Pending Medical Oncology evaluation for discussion of possible IR biopsy of osseous/LN metastases.
Discussed plan of care extensively w/ pt and daughter 02/05/25.
Plan to revisit urologic plan this afternoon w/ pt.
[2025-02-08] MEDS: LANTUS 0.3 UNITS SC (08:11)
[2025-02-08] MEDS: SENOKOT 17.2 MG PO (08:11)
[2025-02-08] MEDS: COLACE 100 MG PO (08:11)
[2025-02-08] MEDS: MIRALAX 17 GRAMS PO (08:11)
[2025-02-08] MEDS: LOW STRENGTH ASPIRIN 81 MG PO (08:12)
[2025-02-08] MEDS: VITAMIN D3 (cholecalciferol) 25 MCG PO (08:12)
[2025-02-08] MEDS: PRANDIN 1 MG PO ×3 (08:12→17:07)
[2025-02-08] MEDS: FLORASTOR 500 MG PO (08:12)
[2025-02-08] MEDS: FLOMAX 0.4 MG PO (08:12)
[2025-02-08] MEDS: FARXIGA 10 MG PO (08:12)
[2025-02-08] MEDS: FIRVANQ 125 MG PO ×2 (08:13→21:18)
[2025-02-08] MEDS: VISBIOME 2 CAP PO (08:14)
--- NOTE | 2025-02-08 11:10 | CM ---
Reviewed the chart notes and spoke with the patient at the bedside. Per urology, plan this week for TURBT to establish pathologic diagnosis of suspected bladder cancer. Recent PT notes continue to recommend acute rehab. Updated clinicals sent to
[facility]. CM continues to be available to patient/family and is monitoring medical plan for needs at discharge.
Plan: [facility] once medically stable for discharge and bed availability. Prior auth required. Recent auth expires as of today.
--- NOTE | 2025-02-08 11:48 | W.PN.ID1 ---
Date of Service
Date of Service: February 08, 2025
Today's Communication
Continue antibiotics.
Assessment / Plan
Leukocytosis
Recent history of C. difficile
Chronic right heel wound
- s/p BKA
MRSA bacteremia (01/22, 01/25)
- urine vs (R) foot source
DM
Diabetic neuropathy,
HLD
PAD
Subdural hematoma
Recommendations:
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
Blood culture 01/25 positive; 01/28 bcx x 2 neg.
Echocardiogram without evidence of vegetation although mitral valve leaflets and aortic valve leaflets noted to be thickened. ESR and CRP elevated.
Continue daptomycin in the treatment of MRSA bacteremia through 03/08/25. Would treat 6 weeks given sustained bacteremia, elevated ESR/CRP and ECHO findings.
- Holding statin while on daptomycin.
Will follow weekly BMP, CBC with differential, ESR and CRP.
- Labs ordered for a.m.
Continue prophylactic oral vancomycin given recent history of C. difficile.
Recent CT imaging of the abdomen and pelvis has revealed a bladder tumor along with pelvic lymph adenopathy. Patient for TURBT this week.
Hematuria improved.
����������������������������������������������������������
Chief Complaint
-: Bacteremia
Subjective / Review of Systems
Review of Systems: No Fever, No Chills and No Abdominal Pain
Vital Signs / Physical Exam
Vital Signs
Vital Signs
Temp Pulse Resp BP Pulse Ox
98.0 F 48 18 125/59 98
02/08/25 11:26 02/08/25 11:26 02/08/25 11:26 02/08/25 11:26 02/08/25 11:26
Physical Exam
Constitutional: No Acute Distress and Comfortable
Eyes: Sclera Anicteric
Cardiovascular: Regular Rate, S1/S2 and Murmur; Negative S3/S4
Pulmonary: Clear and Non Labored
Gastrointestinal: Non Distended
Extremities: Edema
Wound: Other (Right BKA stump protector in place.)
Neurological: Awake and Alert
Psychological: Calm
Objective Data
Lab Data
Lab Results
02/08/25 05:10
02/08/25 05:10
ESR 118 mm/hour (0-20) H 02/02/25 05:43
Estimated Creat Clear 82 ml/min 02/08/25 05:10
Lactic Acid 1.1 mmol/L (0.7-2.0) 01/23/25 01:37
Total Bilirubin 0.4 mg/dl (0.2-1.3) 01/29/25 05:36
AST 20 U/L (17-59) 01/29/25 05:36
ALT 38 U/L (0-50) 01/29/25 05:36
Alkaline Phosphatase 103 U/L (38-126) 01/29/25 05:36
C-Reactive Protein 142.20 mg/L (0.0-10.00) H 02/02/25 05:42
Most recent labs reviewed.
Micro Results:
02/04/25 17:27 Urine Culture - Final
Urine No Significant Growth
01/28/25 14:03 Blood Culture - Final
Blood/Venous No Growth - Final Report
01/28/25 12:33 Blood Culture - Final
Blood/Venous No Growth - Final Report
01/25/25 07:05 Blood Culture - Final
Blood/Venous Staph aureus MRSA
Gram Stain - Final
01/29/25 15:20 Urine Culture - Final
Urine Yeast
01/22/25 23:15 Blood Culture - Final
Blood/Venous Staph aureus MRSA
Gram Stain - Final
01/22/25 23:15 Blood Culture - Final
Blood/Venous Staph aureus MRSA
Gram Stain - Final
01/24/25 12:14 Blood Culture - Final
Blood/Venous No Growth - Final Report
01/24/25 11:39 Blood Culture - Final
Blood/Venous No Growth - Final Report
01/22/25 23:15 Urine Culture - Final
Urine
Imaging:
01/25/25 ECHO (TTE): Normal biventricular size and systolic function. No regional wall motion abnormality. Mild aortic stenosis. EF approximately 65%. Thickened mitral valve leaflets. Thickened aortic valve leaflets with restricted motion. No
intracardiac mass or thrombus formation seen. Please see full dictation for additional detail.
01/23/2025 CXR (2 view): No focal consolidation, pleural effusion or pneumothorax noted. Please see full dictation for additional detail.
[2025-02-08 12:26] LABS: Glucose - Point of Care 125 mg/dl (70-99)
--- NOTE | 2025-02-08 16:56 | W.PN.HOSP.TC ---
Today's Communication/Plan
-
Oncology evaluation for bladder mass.
Hold anticoagulation in anticipation for urologic procedure.
Continue IV antibiotic
Continue oral vancomycin
Assessment / Plan
Assessment / Plan
Impression:
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
MRSA bacteremia secondary to infected lower extremity wound.
Sepsis secondary to above present on admission
Bladder mass with gross hematuria and anticoagulation with factor Xa inhibitor
Severe PAD
Acute on chronic anemia with microcytosis, multifactorial due to acute blood loss/postoperative
Acute hypoxic respiratory insufficiency postoperatively secondary to lung toxicity now resolved.
Hyperkalemia improved.
Other conditions:
Diabetes type 2 with neuropathy.
Chronic microcytic anemia.
Prior history of C. difficile infection
BPH.
Mild cognitive dysfunction
History of subdural hematoma
Plan:
Gross hematuria developed on 02/04. Previously with microhematuria while on Xarelto
CT urography 02/05 findings consistent with bladder mass and what looks like distant metastatic disease including necrotic lymph nodes and bony lytic metastasis.
So far no evidence of clot retention.
Normal renal function.
Discussed with urology with tentative plan for cystoscopy and biopsy.
Ecology evaluation
Xarelto placed on hold on 02/05
Continue bladder scan monitor for clot retention
Continue Flomax
Follow hemoglobin, HGB 8-9
Nonhealing right lower extremity ulcer and this
Sepsis present on admission secondary to above present on admission now resolved.
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
Blood cultures cleared on 01/28
Echocardiogram with preserved LVEF no clear regurgitation, although with thickening mitral leaflets.
Noted elevated inflammatory markers.
Antibiotics consolidated to daptomycin through 03/08/2025 to complete total of 6 weeks of therapy. Monitor CK while on
On oral vancomycin for prophylaxis (prior history of C. difficile)
Continue probiotics
Bradycardia
ECG was normal sinus rhythm
Not on medication that commonly causes bradycardia, opioid might cause bradycardia
Monitor on telemetry
Severe PAD.
Status post right BKA.
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
On aspirin and Xarelto.
Ideally resume anticoagulation with Xarelto GARETT with required urologic workup.
IDDM.
Recent hemoglobin A1c 8.9.
Preadmission regimen including Xigduo, Prandin, Lantus
Hold metformin given contrast exposure with CT urogram on 02/05
Continue Lantus
Continue Prandin
Continue basal bolus protocol with serial Accu-Cheks
Acute on chronic anemia multifactorial due to postoperative blood loss as well as ongoing micro�gross hematuria
Iron stores with very mild iron deficiency also evidence for anemia of chronic disease.
Status post transfusion total of 2 units of packed red blood cells over this hospitalization with appropriate response.
Rectal heme-negative
Noted transient and isolated ALT elevation.
Imaging with no evidence of hepatic abnormalities.
Full code.
Anticipated Discharge: > 48 hours
Subjective/Interval History
-
Date of Service: February 08, 2025
Objective Data
-
Labs:
Laboratory Results
02/08/25
05:10
WBC 5.3
Hgb 8.4 L
Hct 27.3 L
Plt Count 263
Sodium 138
Potassium 4.7
Chloride 104
Carbon Dioxide 30
BUN 32 H
Creatinine 0.8
Glucose 115 H
Calcium 8.1 L
Vital Signs:
Vital Signs
Temp Pulse Resp BP Pulse Ox
98.0 F 48 18 125/59 98
02/08/25 11:26 02/08/25 11:26 02/08/25 11:26 02/08/25 11:26 02/08/25 11:26
I&O
02/07/25 02/08/25 02/09/25
06:59 06:59 06:59
Intake Total 960 / 960 1740 / 1740
Output Total 725 / 725 1000 / 1000 900 / 900
Balance 235 / 235 740 / 740 -900 / -900
Physical Exam
-
General: Well Developed and No Apparent Distress
HEENT: Normocephalic, Atraumatic and Moist Mucous Membranes
Respiratory: Clear to Auscultation
Cardiac: Regular Rhythm and S1/S2; Negative Murmur, Rub or Gallop
GI: Soft, Nontender, Nondistended and Normal Bowel Sounds; Negative Organomegaly
Rectal: Deferred by Provider
Musculoskeletal: No Clubbing, No Cyanosis, No Edema and Other (right BKA)
Skin: Negative Rash
Neuro: Nonfocal/Grossly Intact
[2025-02-08] MEDS: CUBICIN 16 MG IV (17:06)
[2025-02-08 17:26] LABS: Glucose - Point of Care 159 mg/dl (70-99)
[2025-02-08] MEDS: NOVOLOG FLEXPEN-MODERATE RESISTANCE 1 UNITS SC (17:42)
[2025-02-08 21:03] LABS: Glucose - Point of Care 361 mg/dl (70-99)
[2025-02-08] MEDS: MELATONIN 3 MG PO (21:18)
[2025-02-08] MEDS: SENOKOT PO (21:19)
[2025-02-08] MEDS: COLACE PO (21:19)
[2025-02-08] MEDS: NOVOLOG FLEXPEN 9 UNITS SC (22:37)
[2025-02-09] VITALS (9 sets, daily range): BP systolic 100–132; BP diastolic 46–70; PULSE 98; O2SAT 99
[2025-02-09 03:10] LABS: Glucose - Point of Care 155 mg/dl (70-99)
[2025-02-09 05:51] LABS: Erythrocyte Sed Rate 110 mm/hour (0-20)
[2025-02-09 06:06] LABS: Creatine Phosphokinase 28 U/L (55-170)
[2025-02-09 07:37] LABS: Glucose - Point of Care 92 mg/dl (70-99)
[2025-02-09] MEDS: NOVOLOG FLEXPEN-MODERATE RESISTANCE SC (07:49)
[2025-02-09] MEDS: VISBIOME 2 CAP PO (07:52)
[2025-02-09] MEDS: FLORASTOR 500 MG PO (07:52)
[2025-02-09] MEDS: FARXIGA 10 MG PO (07:52)
[2025-02-09] MEDS: LOW STRENGTH ASPIRIN 81 MG PO (07:52)
[2025-02-09] MEDS: PRANDIN 1 MG PO ×3 (07:52→17:15)
[2025-02-09] MEDS: FLOMAX 0.4 MG PO (07:52)
[2025-02-09] MEDS: FIRVANQ 125 MG PO ×2 (07:53→20:29)
[2025-02-09] MEDS: LANTUS 0.3 UNITS SC (07:53)
[2025-02-09] MEDS: VITAMIN D3 (cholecalciferol) 25 MCG PO (07:53)
[2025-02-09] MEDS: SENOKOT PO ×2 (07:54→20:29)
[2025-02-09] MEDS: COLACE PO ×2 (07:54→20:29)
[2025-02-09] MEDS: MIRALAX PO (07:54)
--- NOTE | 2025-02-09 09:03 | W.PN.ID1 ---
Date of Service
Date of Service: February 09, 2025
Today's Communication
Continue antibiotics.
Assessment / Plan
Leukocytosis
Recent history of C. difficile
Chronic right heel wound
- s/p BKA
MRSA bacteremia (01/22, 01/25)
- urine vs (R) foot source
Elevated ESR / CRP
- improved on this weeks testing
DM
Diabetic neuropathy,
HLD
PAD
Subdural hematoma
Recommendations:
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
Blood culture 01/25 positive; 01/28 bcx x 2 neg.
Echocardiogram without evidence of vegetation although mitral valve leaflets and aortic valve leaflets noted to be thickened. ESR and CRP elevated.
Continue daptomycin in the treatment of MRSA bacteremia through 03/08/25. Would treat 6 weeks given sustained bacteremia, elevated ESR/CRP and ECHO findings.
- Holding statin while on daptomycin.
Will follow weekly BMP, CBC with differential, ESR and CRP.
Continue prophylactic oral vancomycin given recent history of C. difficile.
Recent CT imaging of the abdomen and pelvis has revealed a bladder tumor along with pelvic lymph adenopathy. Patient for TURBT this week.
Hematuria improved.
����������������������������������������������������������
Chief Complaint
-: Bacteremia
Subjective / Review of Systems
Patient seen and examined. Overall feels well. Denies specific complaints. No further hematuria.
Review of Systems: No Fever
Vital Signs / Physical Exam
Vital Signs
Vital Signs
Temp Pulse Resp BP Pulse Ox
97.5 F 85 16 100/70 100
02/09/25 07:25 02/09/25 07:25 02/09/25 07:25 02/09/25 07:25 02/09/25 07:25
Physical Exam
Constitutional: No Acute Distress and Comfortable
Eyes: Sclera Anicteric
Cardiovascular: Regular Rate, S1/S2 and Murmur; Negative S3/S4
Pulmonary: Clear and Non Labored
Gastrointestinal: Non Distended
Extremities: Edema
Wound: Other (Right BKA stump protector in place.)
Neurological: Awake and Alert
Psychological: Calm
Objective Data
Lab Data
Lab Results
02/08/25 05:10
02/08/25 05:10
ESR 110 mm/hour (0-20) H 02/09/25 05:29
Estimated Creat Clear 82 ml/min 02/08/25 05:10
Lactic Acid 1.1 mmol/L (0.7-2.0) 01/23/25 01:37
Total Bilirubin 0.4 mg/dl (0.2-1.3) 01/29/25 05:36
AST 20 U/L (17-59) 01/29/25 05:36
ALT 38 U/L (0-50) 01/29/25 05:36
Alkaline Phosphatase 103 U/L (38-126) 01/29/25 05:36
C-Reactive Protein 40.00 mg/L (0.0-10.00) H 02/09/25 05:29
Most recent labs reviewed.
Micro Results:
02/04/25 17:27 Urine Culture - Final
Urine No Significant Growth
01/28/25 14:03 Blood Culture - Final
Blood/Venous No Growth - Final Report
01/28/25 12:33 Blood Culture - Final
Blood/Venous No Growth - Final Report
01/25/25 07:05 Blood Culture - Final
Blood/Venous Staph aureus MRSA
Gram Stain - Final
01/29/25 15:20 Urine Culture - Final
Urine Yeast
01/22/25 23:15 Blood Culture - Final
Blood/Venous Staph aureus MRSA
Gram Stain - Final
01/22/25 23:15 Blood Culture - Final
Blood/Venous Staph aureus MRSA
Gram Stain - Final
01/24/25 12:14 Blood Culture - Final
Blood/Venous No Growth - Final Report
01/24/25 11:39 Blood Culture - Final
Blood/Venous No Growth - Final Report
01/22/25 23:15 Urine Culture - Final
Urine
Imaging:
01/25/25 ECHO (TTE): Normal biventricular size and systolic function. No regional wall motion abnormality. Mild aortic stenosis. EF approximately 65%. Thickened mitral valve leaflets. Thickened aortic valve leaflets with restricted motion. No
intracardiac mass or thrombus formation seen. Please see full dictation for additional detail.
01/23/2025 CXR (2 view): No focal consolidation, pleural effusion or pneumothorax noted. Please see full dictation for additional detail.
[2025-02-09 11:15] LABS: Glucose - Point of Care 262 mg/dl (70-99)
--- NOTE | 2025-02-09 12:49 | W.PN.URO.CBU ---
Today's Communication / Plan
-
Continue holding Xarelto
OK to continue ASA 81 mg given PAD and recent BKA
To OR in afternoon 02/11 for TURBT (Dr. Bronson)
NPO@[facility] 02/10 (ordered)
Medical Oncology consult recommended given CT findings and potential IR bone biopsy
D/w patient this afternoon.
VM left for patient's daughter this AM (Jany).
Assessment / Plan
-
Bladder tumor suspicious for malignancy
Hematuria
Pelvic lymphadenopathy + pelvic osteolytic lesions indicative of metastatic disease
Urology re-consulted re: new hematuria o/n on Xarelto (02/04).
02/05: CT Urogram requested => 6 x 2.3 x 2.0 cm bladder mass, necrotic lymph node within the right inguinal region concerning for lymphatic metastasis, lytic lesions throughout the visualized osseous structures, consistent with osseous metastasis.
Previously saw Dr. Hallman @[facility] in last 12 months - PSA 'very low' per patient (daughter confirmed <1), and MARIO was normal.
PSA ordered 02/06 => 0.41
CT findings indicate likely metastatic bladder cancer as no additional primary lesions noted.
Detailed discussion had w/ patient and daughter (Teetee) re: CT findings indicative of bladder tumor suspicious for bladder cancer in addition to LAD and osteolytic lesions indicative of metastatic disease.
Diagnosis
-
Date of Service: February 09, 2025
-
Patient Diagnosis:
Bladder tumor suspicious for malignancy
Hematuria
Pelvic lymphadenopathy + pelvic osteolytic lesions indicative of metastatic disease
Subjective
-
Voiding w/o difficulty.
Objective
-
Vital Signs
Temp Pulse Resp BP Pulse Ox
97.5 F 81 16 119/64 100
02/09/25 11:15 02/09/25 11:15 02/09/25 11:15 02/09/25 11:15 02/09/25 11:15
Intake and Output
02/08/25 02/09/25 02/10/25
06:59 06:59 06:59
Intake Total 1740 / 1740 1380 / 1380
Output Total 1000 / 1000 2074
Balance 740 / 740 -695 / -695
Intake:
Oral fluids 1740 / 1740 1380 / 1380
Output:
Urine, Voided 1000 / 1000 2074
Other:
Number of approximated SMALL 1
amounts of urine
Number of approximated MODERATE 3
amounts of urine
Number of unmeasured liquid
stools
Rectum 2
Laboratory Results
02/08/25 05:10
02/08/25 05:10
Physical Exam
-
General - well developed, well nourished, no acute distress
Abdomen - soft, non-tender, non-distended
Genitalia - normal
Skin - warm & dry with no rash
Extremities - R BKA
Care Review
Data Reviewed
Discussed with: Hospitalist and Family
CT Scan: Report Pers Reviewed and Image Pers Reviewed
[2025-02-09] MEDS: NOVOLOG FLEXPEN-MODERATE RESISTANCE 5 UNITS SC ×2 (12:58→17:16)
--- NOTE | 2025-02-09 13:52 | CON.ONC ---
Impression
Impression
Large bladder mass with hematuria
Necrotic pelvic node
Multiple lytic bone lesions in lumbar spine pelvis and femora
Recent right lower extremity amputation for osteomyelitis
MRSA bacteremia
Peripheral arterial disease
Diabetes
Atrial fibrillation
Plan
Plan
Await results of TUR and attempt at resection of the large bladder tumor. Assuming this is a high-grade malignancy, the odds are very high that the necrotic node and bone lesions are metastatic disease. We could consider a biopsy of one of the
bony areas to confirm this, but I would prefer to hold off on that. The femurs are only partially visualized on CT scan, I will obtain plain views of them to look for bony integrity and risk of fracture. Will check blood studies to exclude myeloma
as a cause of the lytic lesions.
Patient History
History of Present Illness
Consult from hospitalist service regarding apparent bladder cancer
This 79-year-old man was admitted with persistent problems with his right lower extremity. He was noted to have osteomyelitis. He ultimately underwent a right sided below the knee amputation. He also has been found to have MRSA bacteremia during
this hospitalization and is completing a course of antibiotics for that. He developed gross hematuria, and was found to have a 6 cm mass in the bladder. He is due to undergo TURBT on . There were also lytic lesions noted in both femurs,
the pelvis, and visualized lumbar spine. There was a 1.3 cm necrotic inguinal node. He denies much in the way of pain. He did have microscopic hematuria prior to this admission, but this was not evaluated.
Past-Medical/Surgical History
As per problem list.
Social history: He does not smoke.
Family history is noncontributory.
Patient Medication
�Medication �Instructions �Recorded �Confirmed �Last Taken �Type
repaglinide 1 mg tablet 1 mg PO MEALS Diabetes 08/15/21 01/22/25 12/03/24 19:00 History
rosuvastatin 20 mg tablet 20 mg PO HS High cholesterol 08/15/21 01/22/25 12/04/24 06:00 History
coenzyme Q10 100 mg capsule 100 mg PO DAILY Supplement ##0 10/20/21 01/22/25 12/02/24 10:00 History
(CoQ-10)
dapagliflozin propaned 5 1 tab PO BID Diabetes 12/01/24 01/22/25 12/02/24 10:00 History
mg-metformin ER 1,000 mg tablet,
ext rel 24hr (Xigduo XR)
insulin glargine U-300 conc 300 30 unit SC DAILY Diabetes 12/01/24 01/22/25 12/03/24 06:30 History
unit/mL (1.5 mL) subcutaneous pen 20 units
(Toujeo SoloStar U-300 Insulin)
vit C 250 mg-vit E 90 mg-zinc 40 1 tab PO BID Supplement 12/01/24 01/22/25 12/02/24 10:00 History
mg-copper 1 [id number]
capsule (PreserVision AREDS-2)
Lactobac no.2-Bifidobac no.1-S. 1 cap PO DAILY Gastrointestinal 01/22/25 01/22/25 Unknown History
thermo 112.5 billion cell capsule Issue
(Visbiome)
Saccharomyces boulardii 250 mg 500 mg PO DAILY Gastrointestinal 01/22/25 01/22/25 Unknown History
capsule (Florastor) Issue
therapeutic multivitamin 1 tab PO DAILY Supplement 01/22/25 01/22/25 Unknown History
vitamin K2 (MK-4) 100 mcg tablet 100 mcg PO DAILY Supplement 01/22/25 01/22/25 Unknown History
DAPTOmycin [Cubicin] 800 mg As Directed mls/hr IV Q24H 02/03/25 Unknown Rx
Infection
acetaminophen 325 mg tablet 650 mg (2 x 325 mg) PO Q4HPRN PRN 02/03/25 Unknown Rx
Mild Pain / Temp > 101 #0 tabs
aspirin 81 mg chewable tablet 81 mg PO DAILY #0 tabs 02/03/25 Unknown Rx
cholecalciferol (vitamin D3) 25 25 mcg PO DAILY Supplement #0 tabs 02/03/25 Unknown Rx
mcg (1,000 unit) tablet
docusate sodium 100 mg capsule 100 mg PO BID Constipation #0 caps 02/03/25 Unknown Rx
melatonin 3 mg tablet 3 mg PO HS Sleep #0 tabs 02/03/25 Unknown Rx
oxycodone 10 mg tablet 10 mg PO Q4HPRN PRN severe pain 02/03/25 Unknown Rx
#10 tabs
oxycodone 5 mg tablet 5 mg PO Q4HPRN PRN moderate pain 02/03/25 Unknown Rx
#10 tabs
polyethylene glycol 3350 17 gram 17 g PO DAILY Gastrointestinal 02/03/25 Unknown Rx
oral powder packet issue #0 ea
rivaroxaban 2.5 mg tablet (Xarelto) 2.5 mg PO BID Blood clot 02/03/25 01/22/25 12/01/24 19:00 Rx
prevention/tx #0 tabs
tamsulosin 0.4 mg capsule 0.4 mg PO DAILY Urinary issue #30 02/03/25 Unknown Rx
caps
vancomycin 50 mg/mL oral solution 125 mg (2.5 mL) PO BID Infection 5 02/03/25 Unknown Rx
weeks #175 mL
Active Medications
Generic Name Dose Route Start Last Admin
Trade Name Freq PRN Reason Stop Dose Admin
Acetaminophen 1,000 mg 02/07/25 13:59
Acetaminophen 325 Mg Tablet PO 03/07/25 13:58
Q6HPRN PRN
Mild to mod Pain / Temp > 101
Aspirin 81 mg 01/23/25 08:00 02/09/25 07:52
Aspirin 81 Mg Chewable Tablet PO 02/20/25 07:59 81 mg
DAILY VIPIN Administration
Bisacodyl 10 mg 01/29/25 15:58
Bisacodyl 10 Mg Rectal Suppository RECTAL 02/26/25 15:57
DAILYPRN PRN
constipation
Cholecalciferol 25 mcg 01/28/25 08:00 02/09/25 07:53
Cholecalciferol (Vitamin D3) 25 Mcg Tablet (1,000 Units) PO 02/25/25 07:59 25 mcg
DAILY VIPIN Administration
Dapagliflozin 10 mg 01/30/25 08:15 02/09/25 07:52
Dapagliflozin (Farxiga) 10 Mg Tablet PO 02/27/25 08:14 10 mg
DAILY VIPIN Administration
Dextrose 12.5 grams 01/23/25 03:55
Dextrose 50% (0.5 Grams/Ml) 50 Ml Syringe IV 02/20/25 03:54
[id number] PRN
hypoglycemia
Protocol
Docusate Sodium 100 mg 01/25/25 20:00 02/09/25 07:54
Docusate Sodium 100 Mg Capsule PO 02/22/25 19:59 Not Given
BID VIPIN
Glucagon 1 mg 01/23/25 03:55
Glucagon 1 Mg Vial IM 02/20/25 03:54
PRN PRN
hypoglycemia
Protocol
Insulin Glargine 30 units/ 0.3 mls @ 0 mls/hr 01/30/25 08:00 02/09/25 07:53
Device SC 02/27/25 07:59 0.3 mls
DAILY VIPIN Administration
As Directed
Daptomycin 800 mg/ Device 16 mls @ 0 mls/hr 02/02/25 16:00 02/08/25 17:06
IV 16 mls
Q24H VIPIN Administration
As Directed
Insulin Aspart 0 units 01/23/25 07:30 02/09/25 12:58
Insulin Aspart Moderate Resistance 300 Units/3 Ml Pen.Injctr SC 02/20/25 07:29 5 units
AC VIPIN Administration
Protocol
Lactobacillus/Bifidobacterium 2 cap 01/24/25 09:45 02/09/25 07:52
Lactobac/Bifidobac (Visbiome) PO 02/21/25 09:44 2 cap
DAILY VIPIN Administration
Melatonin 3 mg 01/26/25 22:00 02/08/25 21:18
Melatonin 3 Mg Tablet PO 02/23/25 21:59 3 mg
HS VIPIN Administration
Metformin HCl 500 mg 01/28/25 08:00 02/05/25 08:03
Metformin 500 Mg Regular Release Tablet PO 02/25/25 07:59 500 mg
BID@0800,1700 VIPIN Administration
Ondansetron HCl 4 mg 01/23/25 03:55
Ondansetron 4 Mg/2 Ml Vial IV 02/20/25 03:54
Q6HPRN PRN
nausea and vomiting
Polyethylene Glycol 17 grams 01/25/25 09:00 02/09/25 07:54
Polyethylene Glycol Powder 17 Grams Packet PO 02/22/25 08:59 Not Given
DAILY VIPIN
Repaglinide 1 mg 01/28/25 08:00 02/09/25 12:58
Repaglinide 1 Mg Tablet PO 02/25/25 07:59 1 mg
MEALS VIPIN Administration
Rivaroxaban 2.5 mg 02/01/25 20:00 02/04/25 20:41
Rivaroxaban 2.5 Mg Tablet PO 03/01/25 19:59 2.5 mg
BID VIPIN Administration
Saccharomyces Boulardii 500 mg 01/23/25 08:00 02/09/25 07:52
Saccharomyces Boulardi (Florastor) 250 Mg Capsule PO 02/20/25 07:59 500 mg
DAILY VIPIN Administration
Sennosides 17.2 mg 01/25/25 09:00 02/09/25 07:54
Sennosides (Senokot) 8.6 Mg Tablet PO 02/22/25 08:59 Not Given
BID VIPIN
Sodium Chloride 0 flush 01/23/25 04:00 02/01/25 06:09
Sodium Chloride 0.9% (Flush) Syringe IV 02/20/25 03:59 2 flush
PER PROTOCOL VIPIN Administration
Tamsulosin HCl 0.4 mg 01/23/25 08:00 02/09/25 07:52
Tamsulosin 0.4 Mg Capsule PO 02/20/25 07:59 0.4 mg
DAILY VIPIN Administration
Vancomycin HCl 125 mg 01/23/25 09:30 02/09/25 07:53
Vancomycin Oral Solution 50 Mg/Ml In Oral Syringe PO 125 mg
BID VIPIN Administration
Physical Exam
-
Examination shows him to be awake and alert and in no distress.
HEENT exam is unremarkable.
The chest is clear.
The heart is regular with no murmur or gallop.
The abdomen is soft and nontender with no organomegaly or masses.
Extremities show an absent lower right extremity.
Neurologic is grossly intact
Labs
Lab Results
WBC 5.3 10^3/uL (4.8-10.8) 02/08/25 05:10
RBC 3.43 10^6/uL (4.70-6.10) L 02/08/25 05:10
Hgb 8.4 g/dL (13.0-18.0) L 02/08/25 05:10
Hct 27.3 % (39.0-52.0) L 02/08/25 05:10
MCV 79.6 fL (80.0-94.0) L 02/08/25 05:10
MCH 24.5 pg (27.0-31.0) L 02/08/25 05:10
MCHC 30.8 g/dL (33.0-37.0) L 02/08/25 05:10
RDW 18.6 % (11.5-14.5) H 02/08/25 05:10
Plt Count 263 10^3/uL (130-400) 02/08/25 05:10
MPV 9.4 fL (7.4-10.4) 02/08/25 05:10
Abs Immat Gran (auto) 0.0 10^3/uL (0-0.05) 02/06/25 05:56
Absolute Neuts (auto) 3.6 10^3/uL (1.4-6.5) 02/06/25 05:56
Absolute Lymphs (auto) 1.6 10^3/uL (1.2-3.4) 02/06/25 05:56
Absolute Monos (auto) 0.9 10^3/uL (0.1-0.6) H 02/06/25 05:56
Absolute Eos (auto) 0.3 10^3/uL (0-0.7) 02/06/25 05:56
Absolute Basos (auto) 0.1 10^3/uL (0-0.2) 02/06/25 05:56
Immature Gran % 0.3 % (0-0.5) 02/06/25 05:56
Neutrophils % 56.4 % (42.2-75.2) 02/06/25 05:56
Lymphocytes % 24.6 % (20.5-51.1) 02/06/25 05:56
Monocytes % 13.3 % (1.7-9.3) H 02/06/25 05:56
Eosinophils % 4.5 % (0-6) 02/06/25 05:56
Basophils % 0.9 % (0-2) 02/06/25 05:56
Creatinine 0.8 mg/dL (0.7-1.3) 02/08/25 05:10
Vital Signs
Vital Signs
Temp Pulse Resp BP Pulse Ox
97.5 F 81 16 119/64 100
02/09/25 11:15 02/09/25 11:15 02/09/25 11:15 02/09/25 11:15 02/09/25 11:15
--- NOTE | 2025-02-09 15:23 | CM ---
Reviewed the chart notes. Per urology, plan this week for TURBT. Recent PT notes continue to recommend acute rehab. CM continues to be available to patient/family and is monitoring medical plan for needs at discharge.
Plan: [facility] once medically stable for discharge and bed availability. Prior auth required. Recent auth expires as of today.
[2025-02-09] MEDS: CUBICIN 16 MG IV (15:54)
--- NOTE | 2025-02-09 16:01 | W.PN.HOSP.TC ---
Today's Communication/Plan
-
TURBT (diagnostic and therapeutic) tentatively on the 02/11
Hold anticoagulation
Continue antibiotic
Assessment / Plan
Assessment / Plan
Impression:
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
MRSA bacteremia secondary to infected lower extremity wound.
Sepsis secondary to above present on admission
Bladder mass with gross hematuria and anticoagulation with factor Xa inhibitor
Severe PAD
Acute on chronic anemia with microcytosis, multifactorial due to acute blood loss/postoperative
Acute hypoxic respiratory insufficiency postoperatively secondary to lung toxicity now resolved.
Hyperkalemia improved.
Other conditions:
Diabetes type 2 with neuropathy.
Chronic microcytic anemia.
Prior history of C. difficile infection
BPH.
Mild cognitive dysfunction
History of subdural hematoma
Plan:
Gross hematuria developed on 02/04. Previously with microhematuria while on Xarelto
CT urography 02/05 findings consistent with bladder mass and what looks like distant metastatic disease including necrotic lymph nodes and bony lytic metastasis.
So far no evidence of clot retention.
Normal renal function.
Discussed with urology with tentative plan for cystoscopy and biopsy.
Ecology evaluation
Xarelto placed on hold on 02/05
Continue bladder scan monitor for clot retention
Continue Flomax
Follow hemoglobin, HGB 8-9
Nonhealing right lower extremity ulcer and this
Sepsis present on admission secondary to above present on admission now resolved.
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
Blood cultures cleared on 01/28
Echocardiogram with preserved LVEF no clear regurgitation, although with thickening mitral leaflets.
Noted elevated inflammatory markers.
Antibiotics consolidated to daptomycin through 03/08/2025 to complete total of 6 weeks of therapy. Monitor CK while on
On oral vancomycin for prophylaxis (prior history of C. difficile)
Continue probiotics
Bradycardia
ECG was normal sinus rhythm
Not on medication that commonly causes bradycardia, opioid might cause bradycardia
Monitor on telemetry
Severe PAD.
Status post right BKA.
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
On aspirin and Xarelto.
Ideally resume anticoagulation with Xarelto GARETT with required urologic workup.
IDDM.
Recent hemoglobin A1c 8.9.
Preadmission regimen including Xigduo, Prandin, Lantus
Hold metformin given contrast exposure with CT urogram on 02/05
Continue Lantus
Continue Prandin
Continue basal bolus protocol with serial Accu-Cheks
Acute on chronic anemia multifactorial due to postoperative blood loss as well as ongoing micro�gross hematuria
Iron stores with very mild iron deficiency also evidence for anemia of chronic disease.
Status post transfusion total of 2 units of packed red blood cells over this hospitalization with appropriate response.
Rectal heme-negative
Noted transient and isolated ALT elevation.
Imaging with no evidence of hepatic abnormalities.
Full code.
Anticipated Discharge: > 48 hours
Subjective/Interval History
-
Date of Service: February 09, 2025
Objective Data
-
Vital Signs:
Vital Signs
Temp Pulse Resp BP Pulse Ox
97.5 F 81 16 119/64 100
02/09/25 11:15 02/09/25 11:15 02/09/25 11:15 02/09/25 11:15 02/09/25 11:15
I&O
02/08/25 02/09/25 02/10/25
06:59 06:59 06:59
Intake Total 1740 / 1740 1380 / 1380
Output Total 1000 / 1000 2074
Balance 740 / 740 -695 / -695
Physical Exam
-
General: Well Developed and No Apparent Distress
HEENT: Normocephalic, Atraumatic and Moist Mucous Membranes
Respiratory: Clear to Auscultation
Cardiac: Regular Rhythm and S1/S2; Negative Murmur, Rub or Gallop
GI: Soft, Nontender, Nondistended and Normal Bowel Sounds; Negative Organomegaly
Rectal: Deferred by Provider
Musculoskeletal: No Clubbing, No Cyanosis, No Edema and Other (right BKA)
Skin: Negative Rash
Neuro: Nonfocal/Grossly Intact
[2025-02-09 16:57] LABS: Glucose - Point of Care 254 mg/dl (70-99)
[2025-02-09 22:02] LABS: Glucose - Point of Care 253 mg/dl (70-99)
[2025-02-09] MEDS: MELATONIN 3 MG PO (22:04)
[2025-02-10] VITALS (8 sets, daily range): BP systolic 102–126; BP diastolic 49–65; PULSE 81; O2SAT 100
[2025-02-10] MEDS: CATHFLO/ACTIVASE 2 MG INTRACATH (06:41)
--- NOTE | 2025-02-10 06:46 | VATNOTE ---
NO BR FROM EITHER LUMEN OF 4FR DL R PICC. CATHFLO PROTOCOL VIA WHITE LUMEN. PCN AWARE OF INTERVENTION AND PLAN OF CARE
[2025-02-10 07:30] LABS: Glucose - Point of Care 141 mg/dl (70-99)
--- NOTE | 2025-02-10 07:32 | W.PN.ID1 ---
Date of Service
Date of Service: February 10, 2025
Today's Communication
Continue current course of daptomycin.
Assessment / Plan
Leukocytosis
Recent history of C. difficile
Chronic right heel wound
- s/p BKA
MRSA bacteremia (01/22, 01/25)
- urine vs (R) foot source
Elevated ESR / CRP
- improved on this weeks testing
DM
Diabetic neuropathy,
HLD
PAD
Subdural hematoma
Recommendations:
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
Blood culture 01/25 positive; 01/28 bcx x 2 neg.
Echocardiogram without evidence of vegetation although mitral valve leaflets and aortic valve leaflets noted to be thickened. ESR and CRP elevated.
Continue daptomycin in the treatment of MRSA bacteremia through 03/08/25. Would treat 6 weeks given sustained bacteremia, elevated ESR/CRP and ECHO findings.
- Holding statin while on daptomycin.
Will follow weekly BMP, CBC with differential, ESR and CRP. Most recent ESR and CRP improved.
Continue prophylactic oral vancomycin given recent history of C. difficile.
Recent CT imaging of the abdomen and pelvis has revealed a bladder tumor along with pelvic lymph adenopathy. TURBT tentatively for tomorrow..
Hematuria improved.
����������������������������������������������������������
Chief Complaint
-: Bacteremia
Subjective / Review of Systems
Review of Systems: No Fever and No Chills
Vital Signs / Physical Exam
Vital Signs
Vital Signs
Temp Pulse Resp BP Pulse Ox
97.7 F 83 16 112/58 96
02/10/25 03:05 02/10/25 03:05 02/10/25 03:05 02/10/25 03:05 02/10/25 03:05
Physical Exam
Constitutional: No Acute Distress and Comfortable
Eyes: Sclera Anicteric
Cardiovascular: Regular Rate
Pulmonary: Clear and Non Labored
Gastrointestinal: Non Distended
Extremities: Edema
Wound: Other (Right BKA stump protector in place.)
Neurological: Awake and Alert
Psychological: Calm
Objective Data
Lab Data
ESR 110 mm/hour (0-20) H 02/09/25 05:29
Estimated Creat Clear 82 ml/min 02/08/25 05:10
Lactic Acid 1.1 mmol/L (0.7-2.0) 01/23/25 01:37
Total Bilirubin 0.4 mg/dl (0.2-1.3) 01/29/25 05:36
AST 20 U/L (17-59) 01/29/25 05:36
ALT 38 U/L (0-50) 01/29/25 05:36
Alkaline Phosphatase 103 U/L (38-126) 01/29/25 05:36
C-Reactive Protein 40.00 mg/L (0.0-10.00) H 02/09/25 05:29
Most recent labs reviewed.
Micro Results:
02/04/25 17:27 Urine Culture - Final
Urine No Significant Growth
01/28/25 14:03 Blood Culture - Final
Blood/Venous No Growth - Final Report
01/28/25 12:33 Blood Culture - Final
Blood/Venous No Growth - Final Report
01/25/25 07:05 Blood Culture - Final
Blood/Venous Staph aureus MRSA
Gram Stain - Final
01/29/25 15:20 Urine Culture - Final
Urine Yeast
01/22/25 23:15 Blood Culture - Final
Blood/Venous Staph aureus MRSA
Gram Stain - Final
01/22/25 23:15 Blood Culture - Final
Blood/Venous Staph aureus MRSA
Gram Stain - Final
01/24/25 12:14 Blood Culture - Final
Blood/Venous No Growth - Final Report
01/24/25 11:39 Blood Culture - Final
Blood/Venous No Growth - Final Report
01/22/25 23:15 Urine Culture - Final
Urine
Imaging:
01/25/25 ECHO (TTE): Normal biventricular size and systolic function. No regional wall motion abnormality. Mild aortic stenosis. EF approximately 65%. Thickened mitral valve leaflets. Thickened aortic valve leaflets with restricted motion. No
intracardiac mass or thrombus formation seen. Please see full dictation for additional detail.
01/23/2025 CXR (2 view): No focal consolidation, pleural effusion or pneumothorax noted. Please see full dictation for additional detail.
[2025-02-10] MEDS: COLACE PO ×2 (07:53→21:06)
[2025-02-10] MEDS: NOVOLOG FLEXPEN-MODERATE RESISTANCE SC ×2 (07:53→12:22)
[2025-02-10] MEDS: MIRALAX PO (07:53)
[2025-02-10] MEDS: LANTUS 0.3 UNITS SC (07:54)
[2025-02-10] MEDS: FIRVANQ 125 MG PO ×2 (07:54→21:06)
[2025-02-10] MEDS: FARXIGA 10 MG PO (07:56)
[2025-02-10] MEDS: VISBIOME 2 CAP PO (07:56)
[2025-02-10] MEDS: PRANDIN 1 MG PO ×2 (07:56→12:24)
[2025-02-10] MEDS: VITAMIN D3 (cholecalciferol) 25 MCG PO (07:57)
[2025-02-10] MEDS: FLORASTOR 500 MG PO (07:57)
[2025-02-10] MEDS: SENOKOT PO ×2 (07:58→21:06)
[2025-02-10] MEDS: LOW STRENGTH ASPIRIN 81 MG PO (07:58)
[2025-02-10] MEDS: FLOMAX 0.4 MG PO (07:58)
--- NOTE | 2025-02-10 08:59 | W.PN.ONC2 ---
Today's Communication / Plan
-
Await TURBT pathology results. Will standby.
Impression
Impression
Large bladder mass with hematuria
Necrotic pelvic node
Multiple lytic bone lesions in lumbar spine pelvis and femora
Recent right lower extremity amputation for osteomyelitis
MRSA bacteremia
Peripheral arterial disease
Diabetes
Atrial fibrillation
Plan
Plan
Await results of TUR and attempt at resection of the large bladder tumor. Assuming this is a high-grade malignancy, the odds are very high that the necrotic node and bone lesions are metastatic disease. We could consider a biopsy of one of the
bony areas to confirm this, but I would prefer to hold off on that. Outpatient PET scan and if needed bone biopsy can always be considered at a future date.
Subjective/Objective
Chief Complaint
ACS Heme Onc
Subjective
Patient is scheduled for a bladder biopsy either today or tomorrow. Patient has no additional complaints.
Vital Signs:
Vital Signs
Temp Pulse Resp BP Pulse Ox
97.6 F 81 18 102/61 96
02/10/25 07:20 02/10/25 07:20 02/10/25 07:20 02/10/25 07:20 02/10/25 08:07
Lab Results:
Laboratory Data
WBC 5.3 10^3/uL (4.8-10.8) 02/08/25 05:10
Hgb 8.4 g/dL (13.0-18.0) L 02/08/25 05:10
Plt Count 263 10^3/uL (130-400) 02/08/25 05:10
eGFR > 60.00 02/08/25 05:10
Physical Exam
HEENT: No Jaundice
Cardiology: S1 and S2
Pulmonary: Clear
GI: Soft
--- NOTE | 2025-02-10 09:08 | VATNOTE ---
CathFlo given by previous shift RN. Both lumens of PICC flush and have a blood return. Labs drawn.
[2025-02-10 09:14] LABS: % Basophils 0.9 % (0-2); % Eosinophils 4.1 % (0-6); % Immature Granulocytes 0.7 % (0-0.5); % Lymphocytes 26.4 % (20.5-51.1); % Monocytes 10.5 % (1.7-9.3); % Neutrophils 57.4 % (42.2-75.2); Absolute Basophils 0.1 10^3/uL (0-0.2); Absolute Eosinophils 0.3 10^3/uL (0-0.7); Absolute Immature Granulocytes 0.1 10^3/uL (0-0.05); Absolute Monocytes 0.8 10^3/uL (0.1-0.6); Absolute Neutrophils 4.4 10^3/uL (1.4-6.5); Hematocrit 28.8 % (39.0-52.0); Hemoglobin 9.1 g/dL (13.0-18.0); Mean Corp Hgb Conc. 31.6 g/dL (33.0-37.0); Mean Corpuscular Hgb 25.1 pg (27.0-31.0); Mean Corpuscular Volume 79.3 fL (80.0-94.0); Mean Platelet Volume 9.4 fL (7.4-10.4); Nucleated Red Blood Cells % 0 % (-); Platelet Count 306 10^3/uL (130-400); Red Blood Cell Count 3.63 10^6/uL (4.70-6.10); Red Cell Dist. Width 18.7 % (11.5-14.5); White Blood Cell Count 7.6 10^3/uL (4.8-10.8)
--- NOTE | 2025-02-10 09:42 | CM ---
Reviewed the chart notes. Per notes, to OR in afternoon 58 for TURBT. Updated clinicals sent to [facility] via [facility]. CM continues to be available to patient/family and is monitoring medical plan for needs at discharge.
Plan: Discharge to an acute rehab once medically stable. Prior auth will be required.
[2025-02-10 09:55] LABS: Blood Urea Nitrogen 28 mg/dl (9-20); Calcium 8.1 mg/dl (8.4-10.2); Carbon Dioxide 27 mmol/L (22-30); Chloride 104 mmol/L (98-107); Estimated Creatinine Clearance 82 ml/min; Glucose 187 mg/dl (70-99); Potassium 5.2 mmol/L (3.5-5.1); Sodium 138 mmol/L (135-145); eGFR > 60.00
[2025-02-10 12:09] LABS: Glucose - Point of Care 144 mg/dl (70-99)
--- NOTE | 2025-02-10 15:02 | W.PN.HOSP.TC ---
Today's Communication/Plan
-
Cystoscopy tentatively on 02/11
Has been off anticoagulation.
Continue aspirin with caution.
Noted SPEP ordered baseline no rash for additional bone biopsy pending diagnostic cystoscopy
Noted with mild hyperkalemia 5.2. Will monitor.
Assessment / Plan
Assessment / Plan
Impression:
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
MRSA bacteremia secondary to infected lower extremity wound.
Sepsis secondary to above present on admission
Bladder mass with gross hematuria and anticoagulation with factor Xa inhibitor
Severe PAD
Acute on chronic anemia with microcytosis, multifactorial due to acute blood loss/postoperative
Acute hypoxic respiratory insufficiency postoperatively secondary to lung toxicity now resolved.
Hyperkalemia improved.
Other conditions:
Diabetes type 2 with neuropathy.
Chronic microcytic anemia.
Prior history of C. difficile infection
BPH.
Mild cognitive dysfunction
History of subdural hematoma
Plan:
Gross hematuria developed on 02/04. Previously with microhematuria while on Xarelto
CT urography 02/05 findings consistent with bladder mass and what looks like distant metastatic disease including necrotic lymph nodes and bony lytic metastasis.
So far no evidence of clot retention.
Normal renal function.
Discussed with urology with tentative plan for cystoscopy and biopsy.
Ecology evaluation
Xarelto placed on hold on 02/05
Continue bladder scan monitor for clot retention
Continue Flomax
Follow hemoglobin, HGB 8-9
Nonhealing right lower extremity ulcer and this
Sepsis present on admission secondary to above present on admission now resolved.
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
Blood cultures cleared on 01/28
Echocardiogram with preserved LVEF no clear regurgitation, although with thickening mitral leaflets.
Noted elevated inflammatory markers.
Antibiotics consolidated to daptomycin through 03/08/2025 to complete total of 6 weeks of therapy. Monitor CK while on
On oral vancomycin for prophylaxis (prior history of C. difficile)
Continue probiotics
Bradycardia
ECG was normal sinus rhythm
Not on medication that commonly causes bradycardia, opioid might cause bradycardia
Monitor on telemetry
Severe PAD.
Status post right BKA.
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
On aspirin and Xarelto.
Ideally resume anticoagulation with Xarelto GARETT with required urologic workup.
IDDM.
Recent hemoglobin A1c 8.9.
Preadmission regimen including Xigduo, Prandin, Lantus
Hold metformin given contrast exposure with CT urogram on 02/05
Continue Lantus
Continue Prandin
Continue basal bolus protocol with serial Accu-Cheks
Acute on chronic anemia multifactorial due to postoperative blood loss as well as ongoing micro�gross hematuria
Iron stores with very mild iron deficiency also evidence for anemia of chronic disease.
Status post transfusion total of 2 units of packed red blood cells over this hospitalization with appropriate response.
Rectal heme-negative
Noted transient and isolated ALT elevation.
Imaging with no evidence of hepatic abnormalities.
Full code.
Anticipated Discharge: > 48 hours
Subjective/Interval History
-
Date of Service: February 10, 2025
Objective Data
-
Labs:
Laboratory Results
02/10/25
09:05
WBC 7.6
Hgb 9.1 L
Hct 28.8 L
Plt Count 306
Sodium 138
Potassium 5.2 H
Chloride 104
Carbon Dioxide 27
BUN 28 H
Creatinine 0.8
Glucose 187 H
Calcium 8.1 L
Vital Signs:
Vital Signs
Temp Pulse Resp BP Pulse Ox
97.8 F 82 18 105/65 98
02/10/25 11:05 02/10/25 11:05 02/10/25 11:05 02/10/25 11:05 02/10/25 11:05
I&O
02/09/25 02/10/25 02/11/25
06:59 06:59 06:59
Intake Total 1380 / 1380 1060 / 1060
Output Total 2074 182 / 1824
Balance -695 / -695 -765 / -765
Physical Exam
-
General: Well Developed and No Apparent Distress
HEENT: Normocephalic, Atraumatic and Moist Mucous Membranes
Respiratory: Clear to Auscultation
Cardiac: Regular Rhythm and S1/S2; Negative Murmur, Rub or Gallop
GI: Soft, Nontender, Nondistended and Normal Bowel Sounds; Negative Organomegaly
Rectal: Deferred by Provider
Musculoskeletal: No Clubbing, No Cyanosis, No Edema and Other (right BKA)
Skin: Negative Rash
Neuro: Nonfocal/Grossly Intact
[2025-02-10] MEDS: CUBICIN 16 MG IV (15:13)
[2025-02-10 17:19] LABS: Glucose - Point of Care 172 mg/dl (70-99)
[2025-02-10] MEDS: NOVOLOG FLEXPEN-MODERATE RESISTANCE 1 UNITS SC (18:10)
[2025-02-10 22:26] LABS: Glucose - Point of Care 310 mg/dl (70-99)
[2025-02-10] MEDS: MELATONIN 5 MG PO (23:02)
[2025-02-11] VITALS (18 sets, daily range): BP systolic 91–133; BP diastolic 38–73; PULSE 75; O2SAT 97
[2025-02-11] MEDS: MELATONIN PO ×2 (00:36→22:30)
[2025-02-11 04:40] LABS: % Basophils 1.3 % (0-2); % Eosinophils 6.4 % (0-6); % Immature Granulocytes 0.8 % (0-0.5); % Lymphocytes 32.6 % (20.5-51.1); % Neutrophils 47.9 % (42.2-75.2); Absolute Basophils 0.1 10^3/uL (0-0.2); Absolute Eosinophils 0.4 10^3/uL (0-0.7); Absolute Immature Granulocytes 0.1 10^3/uL (0-0.05); Absolute Monocytes 0.7 10^3/uL (0.1-0.6); Absolute Neutrophils 2.9 10^3/uL (1.4-6.5); Hematocrit 27.7 % (39.0-52.0); Hemoglobin 8.5 g/dL (13.0-18.0); Mean Corp Hgb Conc. 30.7 g/dL (33.0-37.0); Mean Corpuscular Hgb 24.7 pg (27.0-31.0); Mean Corpuscular Volume 80.5 fL (80.0-94.0); Mean Platelet Volume 9.8 fL (7.4-10.4); Nucleated Red Blood Cells % 0 % (-); Platelet Count 303 10^3/uL (130-400); Red Blood Cell Count 3.44 10^6/uL (4.70-6.10); Red Cell Dist. Width 18.8 % (11.5-14.5); White Blood Cell Count 6.1 10^3/uL (4.8-10.8)
[2025-02-11 05:08] LABS: Blood Urea Nitrogen 31 mg/dl (9-20); Carbon Dioxide 29 mmol/L (22-30); Chloride 106 mmol/L (98-107); Estimated Creatinine Clearance 82 ml/min; Glucose 237 mg/dl (70-99); Potassium 4.8 mmol/L (3.5-5.1); Sodium 140 mmol/L (135-145); eGFR > 60.00
[2025-02-11 05:52] LABS: Glucose - Point of Care 215 mg/dl (70-99)
[2025-02-11] MEDS: NOVOLOG FLEXPEN-MODERATE RESISTANCE 3 UNITS SC (05:54)
[2025-02-11] MEDS: FARXIGA 10 MG PO (08:53)
[2025-02-11] MEDS: VITAMIN D3 (cholecalciferol) 25 MCG PO (08:53)
[2025-02-11] MEDS: VISBIOME 2 CAP PO (08:53)
[2025-02-11] MEDS: LOW STRENGTH ASPIRIN 81 MG PO (08:54)
[2025-02-11] MEDS: FLOMAX 0.4 MG PO (08:54)
[2025-02-11] MEDS: FLORASTOR 500 MG PO (08:54)
[2025-02-11] MEDS: COLACE PO ×2 (08:54→19:48)
[2025-02-11] MEDS: FIRVANQ 125 MG PO ×2 (08:54→19:48)
[2025-02-11] MEDS: MIRALAX PO (08:55)
[2025-02-11] MEDS: LANTUS 0.3 UNITS SC (08:55)
[2025-02-11] MEDS: SENOKOT PO ×2 (08:55→19:48)
--- NOTE | 2025-02-11 11:00 | W.PN.ONC ---
Today's Communication / Plan
-
Await cystoscopy for pathologic confirmation of malignancy
Discussed outpatient staging with PET CT scan following tissue diagnosis
Reviewed potential treatments for bladder carcinoma
Business card provided will follow
Impression
Impression
Large bladder mass with hematuria
Necrotic pelvic node
Multiple lytic bone lesions in lumbar spine pelvis and femora
Recent right lower extremity amputation for osteomyelitis
MRSA bacteremia
Peripheral arterial disease
Diabetes
Atrial fibrillation
Subjective/Objective
Subjective/Objective
Patient sitting in her chair no new complaints
Vital Signs:
Vital Signs
Temp Pulse Resp BP Pulse Ox
97.9 F 46 16 109/55 98
02/11/25 08:00 02/11/25 08:00 02/11/25 08:00 02/11/25 08:00 02/11/25 08:00
Physical exam unchanged
Lab Results:
Laboratory Data
WBC 6.1 10^3/uL (4.8-10.8) 02/11/25 04:14
Hgb 8.5 g/dL (13.0-18.0) L 02/11/25 04:14
Plt Count 303 10^3/uL (130-400) 02/11/25 04:14
eGFR > 60.00 02/11/25 04:14
[2025-02-11 11:28] LABS: Glucose - Point of Care 85 mg/dl (70-99)
[2025-02-11] MEDS: NOVOLOG FLEXPEN-MODERATE RESISTANCE SC ×2 (11:44→17:15)
--- NOTE | 2025-02-11 12:00 | CM ---
Reviewed the chart notes and spoke with the patient at the bedside. Patient anticipated going to the OR for TURBT today. PT/OT continue to recommend acute rehab. CM continues to be available to patient/family and is monitoring medical plan for
needs at discharge.
Plan: Discharge plan acute rehab once medically stable. Updated referral sent to [facility]. Prior auth will be required.
--- NOTE | 2025-02-11 14:39 | W.SUR.PREOP ---
Pre-Operative Surgical Note
-
I have examined this patient prior to the performance of the scheduled procedure.
The patient's condition is unchanged from the time of the current History and
Physical and the patient is able to undergo the scheduled procedure.
CT imaging reviewed => lobulated bladder mass at bladder base w/o involvement of bilateral UOs, necrotic LN, multiple pelvic osteolytic lesions.
Urine grossly clear since cessation of Xarelto.
Detailed discussion had w/ patient, spouse, and daughter this afternoon regarding plan for diagnostic TURBT for pathologic confirmation of suspected metastatic bladder cancer diagnosis.
Reviewed potential risks and complications of TURBT including but not limited to infection, bleeding, ureteral/bladder injury, incontinence, obstructive uropathy, need for additional procedures/surgeries.
To OR for TURBT
Consent signed on chart
--- NOTE | 2025-02-11 14:53 | WOUNDNOTE ---
WOC RN NOTE: Consult received for sacral wound. Arrived to see patient but he was taken to OR. Will follow up at later time.
--- NOTE | 2025-02-11 15:12 | W.PN.HOSP.TC ---
Today's Communication/Plan
-
OR
Assessment / Plan
Assessment / Plan
Impression:
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
MRSA bacteremia secondary to infected lower extremity wound.
Sepsis secondary to above present on admission
Bladder mass with gross hematuria and anticoagulation with factor Xa inhibitor
Severe PAD
Acute on chronic anemia with microcytosis, multifactorial due to acute blood loss/postoperative
Acute hypoxic respiratory insufficiency postoperatively secondary to lung toxicity now resolved.
Hyperkalemia improved.
Other conditions:
Diabetes type 2 with neuropathy.
Chronic microcytic anemia.
Prior history of C. difficile infection
BPH.
Mild cognitive dysfunction
History of subdural hematoma
Plan:
Gross hematuria developed on 02/04. Previously with microhematuria while on Xarelto
CT urography 02/05 findings consistent with bladder mass and what looks like distant metastatic disease including necrotic lymph nodes and bony lytic metastasis.
So far no evidence of clot retention.
Normal renal function.
Discussed with urology with tentative plan for cystoscopy and biopsy.
Ecology evaluation
Xarelto placed on hold on 02/05
Continue bladder scan monitor for clot retention
Continue Flomax
Follow hemoglobin, HGB 8-9
Nonhealing right lower extremity ulcer and this
Sepsis present on admission secondary to above present on admission now resolved.
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
Blood cultures cleared on 01/28
Echocardiogram with preserved LVEF no clear regurgitation, although with thickening mitral leaflets.
Noted elevated inflammatory markers.
Antibiotics consolidated to daptomycin through 03/08/2025 to complete total of 6 weeks of therapy. Monitor CK while on
On oral vancomycin for prophylaxis (prior history of C. difficile)
Continue probiotics
Bradycardia
ECG was normal sinus rhythm
Not on medication that commonly causes bradycardia, opioid might cause bradycardia
Monitor on telemetry
Severe PAD.
Status post right BKA.
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
On aspirin and Xarelto.
Ideally resume anticoagulation with Xarelto GARETT with required urologic workup.
IDDM.
Recent hemoglobin A1c 8.9.
Preadmission regimen including Xigduo, Prandin, Lantus
Hold metformin given contrast exposure with CT urogram on 02/05
Continue Lantus
Continue Prandin
Continue basal bolus protocol with serial Accu-Cheks
Acute on chronic anemia multifactorial due to postoperative blood loss as well as ongoing micro�gross hematuria
Iron stores with very mild iron deficiency also evidence for anemia of chronic disease.
Status post transfusion total of 2 units of packed red blood cells over this hospitalization with appropriate response.
Rectal heme-negative
Noted transient and isolated ALT elevation.
Imaging with no evidence of hepatic abnormalities.
Full code.
Anticipated Discharge: > 48 hours
Subjective/Interval History
-
Date of Service: February 11, 2025
Objective Data
-
Labs:
Laboratory Results
02/11/25
04:14
WBC 6.1
Hgb 8.5 L
Hct 27.7 L
Plt Count 303
Sodium 140
Potassium 4.8
Chloride 106
Carbon Dioxide 29
BUN 31 H
Creatinine 0.8
Glucose 237 H
Calcium 8.0 L
Vital Signs:
Vital Signs
Temp Pulse Resp BP Pulse Ox
97.5 F 49 16 108/38 100
02/11/25 12:00 02/11/25 12:00 02/11/25 12:00 02/11/25 12:00 02/11/25 12:00
I&O
02/10/25 02/11/25 02/12/25
06:59 06:59 06:59
Intake Total 1060 / 1060 990 / 990
Output Total 1825 / 182 2430 / 2430 200 / 200
Balance -765 / -765 -1440 / -1440 -200 / -200
Physical Exam
-
General: Well Developed and No Apparent Distress
HEENT: Normocephalic, Atraumatic and Moist Mucous Membranes
Respiratory: Clear to Auscultation
Cardiac: Regular Rhythm and S1/S2; Negative Murmur, Rub or Gallop
GI: Soft, Nontender, Nondistended and Normal Bowel Sounds; Negative Organomegaly
Rectal: Deferred by Provider
Musculoskeletal: No Clubbing, No Cyanosis, No Edema and Other (right BKA)
Skin: Negative Rash
Neuro: Nonfocal/Grossly Intact
[2025-02-11] MEDS: CUBICIN IV (15:34)
--- NOTE | 2025-02-11 16:23 | W.IMMPOSTOP ---
Surgical Immed Post Op Note
-
Primary Surgeon: Aiyana
Pre-op Diagnosis: Posterior bladder wall mass (~6.0 x 2.0 cm) suspicious for bladder cancer
Post-op Diagnosis: NO evidence of bladder tumor, pyocystis, small clot debris, significant cystitis
Procedure Performed: urethral dilation, TURBT (medium, 2.5 cm), fulguration of urothelium
Anesthesia Type: LMA
Specimen / Cultures: Posterior wall bladder urothelium/None
Estimated Blood Loss: Negligible
Drains: 22Fr 3-way Frey catheter
Complications: None
Operative Findings:
1. Significant urinary debris and pyocystis noted upon entry into bladder - c/w incomplete emptying and UTI (evacuated).
2. Global cystitis of bladder - predominantly @bladder base, lateral pope, and posterior bladder wall - extensively fulgurated.
3. Bilateral UOs uninvolved w/ margins of resection/fulguration.
4. Extensive cystoscopy demonstrating NO evidence of abnormal urothelial lesions or bladder tumors indicative of bladder cancer.
Spouse and daughter updated post-op on intraop findings.
Plan to continue HOLDING Xarelto, OK to continue aspirin.
Continue CBI to keep urine clear o/n.
LN/pelvic bone lesion biopsy per Medical Oncology.
[2025-02-11 16:29] LABS: Glucose - Point of Care 45 mg/dl (70-99)
[2025-02-11 16:48] LABS: Glucose - Point of Care 58 mg/dl (70-99)
[2025-02-11 17:08] LABS: Glucose - Point of Care 63 mg/dl (70-99)
[2025-02-11 17:33] LABS: Glucose - Point of Care 72 mg/dl (70-99)
--- NOTE | 2025-02-11 18:06 | PTCARENOTE ---
Received pt back from PACU, dinner ordered, pt AAOx3, VSS, CBI running with yellowish/pink output, see CBI documentation, blood sugar at 72, pt resting comfortably in bed at this time with family at bedside.
[2025-02-11 19:31] LABS: Glucose - Point of Care 271 mg/dl (70-99)
[2025-02-11 21:22] LABS: Glucose - Point of Care 353 mg/dl (70-99)
[2025-02-11] MEDS: MELATONIN 5 MG PO (22:30)
[2025-02-11] MEDS: NOVOLOG FLEXPEN 10 UNITS SC (22:30)
[2025-02-12] VITALS (7 sets, daily range): BP systolic 104–132; BP diastolic 50–80; PULSE 78; O2SAT 99
[2025-02-12 03:05] LABS: Glucose - Point of Care 251 mg/dl (70-99)
[2025-02-12 07:25] LABS: Glucose - Point of Care 185 mg/dl (70-99)
[2025-02-12] MEDS: FARXIGA 10 MG PO (07:48)
[2025-02-12] MEDS: FIRVANQ 125 MG PO (07:48)
[2025-02-12] MEDS: LOW STRENGTH ASPIRIN 81 MG PO (07:48)
[2025-02-12] MEDS: VISBIOME 2 CAP PO (07:48)
[2025-02-12] MEDS: FLORASTOR 500 MG PO (07:48)
[2025-02-12] MEDS: VITAMIN D3 (cholecalciferol) 25 MCG PO (07:48)
[2025-02-12] MEDS: FLOMAX 0.4 MG PO (07:49)
[2025-02-12] MEDS: NOVOLOG FLEXPEN-MODERATE RESISTANCE 1 UNITS SC ×2 (07:49→13:17)
[2025-02-12] MEDS: SENOKOT PO ×2 (07:50→21:41)
[2025-02-12] MEDS: MIRALAX PO (07:51)
[2025-02-12] MEDS: COLACE PO ×2 (07:51→21:40)
--- NOTE | 2025-02-12 08:52 | CM ---
Reviewed the chart notes. Patient is s/p TURBT. CBI continues. CM continues to be available to patient/family and is monitoring medical plan for needs at discharge.
Plan: Discharge plans will depend on the patient's progress. [facility] had accepted. Prior auth will be required.
[2025-02-12] MEDS: LANTUS 0.3 UNITS SC (09:03)
[2025-02-12 09:05] LABS: % Basophils 0.4 % (0-2); % Eosinophils 0.6 % (0-6); % Immature Granulocytes 0.6 % (0-0.5); % Lymphocytes 19.1 % (20.5-51.1); % Monocytes 8.3 % (1.7-9.3); Absolute Eosinophils 0.1 10^3/uL (0-0.7); Absolute Immature Granulocytes 0.1 10^3/uL (0-0.05); Absolute Monocytes 0.9 10^3/uL (0.1-0.6); Absolute Neutrophils 7.4 10^3/uL (1.4-6.5); Hematocrit 28.1 % (39.0-52.0); Hemoglobin 8.7 g/dL (13.0-18.0); Mean Corpuscular Hgb 24.6 pg (27.0-31.0); Mean Corpuscular Volume 79.6 fL (80.0-94.0); Mean Platelet Volume 9.3 fL (7.4-10.4); Nucleated Red Blood Cells % 0 % (-); Platelet Count 305 10^3/uL (130-400); Red Blood Cell Count 3.53 10^6/uL (4.70-6.10); White Blood Cell Count 10.4 10^3/uL (4.8-10.8)
[2025-02-12 09:15] LABS: Blood Urea Nitrogen 30 mg/dl (9-20); Calcium 8.1 mg/dl (8.4-10.2); Carbon Dioxide 33 mmol/L (22-30); Chloride 104 mmol/L (98-107); Estimated Creatinine Clearance 82 ml/min; Glucose 136 mg/dl (70-99); Potassium 4.5 mmol/L (3.5-5.1); Sodium 139 mmol/L (135-145); eGFR > 60.00
--- NOTE | 2025-02-12 11:03 | W.PN.ID1 ---
Date of Service
Date of Service: February 12, 2025
Today's Communication
Continue current course of daptomycin.
Assessment / Plan
Leukocytosis
Recent history of C. difficile
Chronic right heel wound / osteomyelitis
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
MRSA bacteremia (01/22, 01/25)
- urine vs (R) foot source
Elevated ESR / CRP
- improved on this weeks testing
DM
Diabetic neuropathy,
HLD
PAD
Subdural hematoma
Recommendations:
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
Blood culture on 01/22 and 01/25 positive; 01/28 bcx x 2 neg.
Echocardiogram without evidence of vegetation although mitral valve leaflets and aortic valve leaflets noted to be thickened. ESR and CRP elevated.
Continue daptomycin in the treatment of MRSA bacteremia through 03/08/25. (Would treat 6 weeks given sustained bacteremia, elevated ESR/CRP and ECHO findings.)
- Holding statin while on daptomycin.
Will follow weekly BMP, CBC with differential, ESR and CRP. Most recent ESR and CRP improved.
Continue prophylactic oral vancomycin given recent history of C. difficile.
Recent CT imaging of the abdomen and pelvis suggested bladder tumor but cystoscopy only revealed bladder debris.
Hematuria improved.
����������������������������������������������������������
Chief Complaint
-: Bacteremia
Subjective / Review of Systems
Review of Systems: No Fever and No Chills
Vital Signs / Physical Exam
Vital Signs
Vital Signs
Temp Pulse Resp BP Pulse Ox
97.7 F 54 16 104/55 98
02/12/25 07:25 02/12/25 07:25 02/12/25 07:25 02/12/25 07:25 02/12/25 10:35
Physical Exam
Constitutional: No Acute Distress and Comfortable
Eyes: Sclera Anicteric
Cardiovascular: Regular Rate
Pulmonary: Clear and Non Labored
Gastrointestinal: Non Distended
Wound: Other (Right BKA stump protector in place.)
Neurological: Awake and Alert
Psychological: Calm
Objective Data
Lab Data
Lab Results
02/12/25 08:56
02/12/25 08:56
ESR 110 mm/hour (0-20) H 02/09/25 05:29
Estimated Creat Clear 82 ml/min 02/12/25 08:56
Lactic Acid 1.1 mmol/L (0.7-2.0) 01/23/25 01:37
Total Bilirubin 0.4 mg/dl (0.2-1.3) 01/29/25 05:36
AST 20 U/L (17-59) 01/29/25 05:36
ALT 38 U/L (0-50) 01/29/25 05:36
Alkaline Phosphatase 103 U/L (38-126) 01/29/25 05:36
C-Reactive Protein 40.00 mg/L (0.0-10.00) H 02/09/25 05:29
Most recent labs reviewed.
Micro Results:
02/04/25 17:27 Urine Culture - Final
Urine No Significant Growth
01/28/25 14:03 Blood Culture - Final
Blood/Venous No Growth - Final Report
01/28/25 12:33 Blood Culture - Final
Blood/Venous No Growth - Final Report
01/25/25 07:05 Blood Culture - Final
Blood/Venous Staph aureus MRSA
Gram Stain - Final
01/29/25 15:20 Urine Culture - Final
Urine Yeast
01/22/25 23:15 Blood Culture - Final
Blood/Venous Staph aureus MRSA
Gram Stain - Final
01/22/25 23:15 Blood Culture - Final
Blood/Venous Staph aureus MRSA
Gram Stain - Final
01/24/25 12:14 Blood Culture - Final
Blood/Venous No Growth - Final Report
01/24/25 11:39 Blood Culture - Final
Blood/Venous No Growth - Final Report
01/22/25 23:15 Urine Culture - Final
Urine
Imaging:
01/25/25 ECHO (TTE): Normal biventricular size and systolic function. No regional wall motion abnormality. Mild aortic stenosis. EF approximately 65%. Thickened mitral valve leaflets. Thickened aortic valve leaflets with restricted motion. No
intracardiac mass or thrombus formation seen. Please see full dictation for additional detail.
01/23/2025 CXR (2 view): No focal consolidation, pleural effusion or pneumothorax noted. Please see full dictation for additional detail.
[2025-02-12 12:24] LABS: Glucose - Point of Care 162 mg/dl (70-99)
[2025-02-12] MEDS: SANTYL OINTMENT 1 APPLIC TOPICAL (13:17)
--- NOTE | 2025-02-12 13:22 | WOUNDNOTE ---
WO RN NOTE: Patient visited for worsening sacral wound. Per chart review, patient was admitted to [facility] on 01/22 and had a right BKA on 01/29. Patient reports laying on his back frequently s/p right BKA. At time of assessment patient noted to have an
unstageable PI to sacral coccyx. See worklist for measurement and description. Plan for treatment is use of daily Santyl to necrotic areas of sacral wound. Discussed importance off-loading with patient who is able to turn self and transfer to chair
with assistance. Patient demonstrated ability to off-load sacrum with Z-foam cushion. An air overlay was applied to bed by Radames HOLDEN. Air cushion in chair. Left heel blanchable. Patient reports good appetite. Hospitalist notified of new PI. RN
Mags to perform wound care once Santyl is approved by Pharmacy. Will continue to follow during in-patient stay.
--- NOTE | 2025-02-12 15:39 | W.PN.HOSP.TC ---
Today's Communication/Plan
-
With unrevealing for bladder tumor cystoscopy given CT findings with necrotic lymphadenopathy as well as diffuse lytic skeletal lesions and pending oncology input, would consider bone biopsy.
Hold Xarelto
Maintain Frey as per urology
Continue IV antibiotics
Assessment / Plan
Assessment / Plan
Impression:
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
MRSA bacteremia secondary to infected lower extremity wound.
Sepsis secondary to above present on admission
Bladder mass with gross hematuria and anticoagulation with factor Xa inhibitor
Severe PAD
Acute on chronic anemia with microcytosis, multifactorial due to acute blood loss/postoperative
Acute hypoxic respiratory insufficiency postoperatively secondary to lung toxicity now resolved.
Hyperkalemia improved.
Sacral pressure ulcer, unstageable
Other conditions:
Diabetes type 2 with neuropathy.
Chronic microcytic anemia.
Prior history of C. difficile infection
BPH.
Mild cognitive dysfunction
History of subdural hematoma
Plan:
Gross hematuria developed on 02/04. Previously with microhematuria while on Xarelto
CT urography 02/05 findings consistent with bladder mass and what looks like distant metastatic disease including necrotic lymph nodes and bony lytic metastasis.
So far no evidence of clot retention.
Normal renal function.
Discussed with urology with tentative plan for cystoscopy and biopsy.
Ecology evaluation
Xarelto placed on hold on 02/05
Status post cystoscopy on 02/11 with no evidence of bladder malignancy. Additional cytology pending.
Given CT findings with necrotic lymphadenopathy as well as diffuse lytic skeletal lesions and pending oncology input, would consider bone biopsy.
Nonhealing right lower extremity ulcer and this
Sepsis present on admission secondary to above present on admission now resolved.
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
Blood cultures cleared on 01/28
Echocardiogram with preserved LVEF no clear regurgitation, although with thickening mitral leaflets.
Noted elevated inflammatory markers.
Antibiotics consolidated to daptomycin through 03/08/2025 to complete total of 6 weeks of therapy. Monitor CK while on
On oral vancomycin for prophylaxis (prior history of C. difficile)
Continue probiotics
Bradycardia
ECG was normal sinus rhythm
Not on medication that commonly causes bradycardia, opioid might cause bradycardia
Monitor on telemetry
Severe PAD.
Status post right BKA.
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
On aspirin and Xarelto.
Ideally resume anticoagulation with Xarelto GARETT with required urologic workup.
IDDM.
Recent hemoglobin A1c 8.9.
Preadmission regimen including Xigduo, Prandin, Lantus
Hold metformin given contrast exposure with CT urogram on 02/05
Continue Lantus
Continue Prandin
Continue basal bolus protocol with serial Accu-Cheks
Acute on chronic anemia multifactorial due to postoperative blood loss as well as ongoing micro�gross hematuria
Iron stores with very mild iron deficiency also evidence for anemia of chronic disease.
Status post transfusion total of 2 units of packed red blood cells over this hospitalization with appropriate response.
Rectal heme-negative
Noted transient and isolated ALT elevation.
Imaging with no evidence of hepatic abnormalities.
Full code.
Anticipated Discharge: > 48 hours
Subjective/Interval History
-
Date of Service: February 12, 2025
Objective Data
-
Labs:
Laboratory Results
02/12/25
08:56
WBC 10.4
Hgb 8.7 L
Hct 28.1 L
Plt Count 305
Sodium 139
Potassium 4.5
Chloride 104
Carbon Dioxide 33 H
BUN 30 H
Creatinine 0.8
Glucose 136 H
Calcium 8.1 L
Vital Signs:
Vital Signs
Temp Pulse Resp BP Pulse Ox
97.9 F 78 18 111/55 99
02/12/25 11:05 02/12/25 11:05 02/12/25 11:05 02/12/25 11:05 02/12/25 11:05
I&O
02/11/25 02/12/25 02/13/25
06:59 06:59 06:59
Intake Total 990 / 990 1040 / 1040
Output Total 2430 / 2430 2700 / 2700
Balance -1440 / -1440 -1660 / -1660
Physical Exam
-
General: Well Developed and No Apparent Distress
HEENT: Normocephalic, Atraumatic and Moist Mucous Membranes
Respiratory: Clear to Auscultation
Cardiac: Regular Rhythm and S1/S2; Negative Murmur, Rub or Gallop
GI: Soft, Nontender, Nondistended and Normal Bowel Sounds; Negative Organomegaly
Rectal: Deferred by Provider
Musculoskeletal: No Clubbing, No Cyanosis, No Edema and Other (right BKA)
Skin: Negative Rash
Neuro: Nonfocal/Grossly Intact
[2025-02-12 17:00] LABS: Glucose - Point of Care 319 mg/dl (70-99)
[2025-02-12] MEDS: NOVOLOG FLEXPEN-MODERATE RESISTANCE 7 UNITS SC (17:02)
[2025-02-12] MEDS: CUBICIN 16 MG IV (17:03)
[2025-02-12] MEDS: MELATONIN 3 MG PO (21:37)
[2025-02-12 21:54] LABS: Glucose - Point of Care 311 mg/dl (70-99)
[2025-02-13] VITALS (7 sets, daily range): BP systolic 108–129; BP diastolic 46–59
[2025-02-13 04:40] LABS: Free Kappa Light Chains,Quant 77.16 mg/L (3.30-19.40); Free Lambda Light Chains,Quant 37.31 mg/L (5.71-26.30); Kappa/Lambda Fr Light Ratio 2.07 (0.26-1.65)
[2025-02-13 06:57] LABS: Glucose - Point of Care 94 mg/dl (70-99)
[2025-02-13] MEDS: SANTYL OINTMENT 1 APPLIC TOPICAL (08:06)
[2025-02-13] MEDS: NOVOLOG FLEXPEN-MODERATE RESISTANCE SC ×2 (08:06→11:46)
[2025-02-13] MEDS: VISBIOME 2 CAP PO (08:07)
[2025-02-13] MEDS: FLOMAX 0.4 MG PO (08:07)
[2025-02-13] MEDS: FARXIGA 10 MG PO (08:07)
[2025-02-13] MEDS: FIRVANQ 125 MG PO (08:07)
[2025-02-13] MEDS: LOW STRENGTH ASPIRIN 81 MG PO (08:07)
[2025-02-13] MEDS: VITAMIN D3 (cholecalciferol) 25 MCG PO (08:07)
[2025-02-13] MEDS: LANTUS 0.3 UNITS SC (08:07)
[2025-02-13] MEDS: FLORASTOR 500 MG PO (08:07)
[2025-02-13] MEDS: MIRALAX 17 GRAMS PO (08:09)
[2025-02-13] MEDS: COLACE 100 MG PO ×2 (08:09→21:07)
[2025-02-13] MEDS: SENOKOT 17.2 MG PO ×2 (08:09→21:07)
--- NOTE | 2025-02-13 09:36 | W.PN.HOSP.TC ---
Addendum entered and electronically signed by Moisés Iglesias MD 02/14/25 12:51:
Correction-patient is not on Eliquis. He is on SCDs for DVT prophylaxis
Original Note:
Today's Communication/Plan
-
Change diet to diabetic diet
Start Prandin and metformin follow sugars
Biopsy-will defer to hematology oncology
Assessment / Plan
Assessment / Plan
79-year-old man with nonhealing right foot wound urinary symptoms. He was hospitalized in April 2020 for with right heel wound/osteomyelitis underwent debridement and right SFA to peroneal bypass. He also received 6 weeks of IV vancomycin and
meropenem for ESBL E. coli. Subsequent arteriogram in November 2024 showed patent vessels. He goes to [facility] for wound care. He was recently seen at [place] wound VAC was removed.
CVS: S1-S2 Not payal
Chest: CTA B/L
Abdomen: Soft, NT / Bowel sounds present
Extremities: No edema left, right BKA bandaged
# Gross hematuria on 02/04/[address] urography on 02 05 showed bladder mass
Status post cystoscopy on 02/11/2025 with no evidence of bladder malignancy. Cytology pending
Xarelto has been on hold since 02-05-25
Sees Joe Beauchamp as OP.
# Necrotic lymph nodes and bony pkfwuqj-wesrl-racy for biopsy on Saturday
SPEP Pending.
# Diabetic foot infection
Nonhealing right ulcer/osteomyelitis
Sepsis secondary to MRSA bacteremia
Completed IV meropenem discontinued after amputation
Was on vancomycin which is changed to Cubicin ( Follow CPK)
Blood cultures from 01/25/2025 with MRSA
Blood cultures from 01/28/2025-negative
# Bradycardia likely secondary to PVCs
Pulse rate otherwise normal
Patient needs mechanical blood pressure monitoring
Echo 01/25/2025-normal biventricular size and systolic function without regional wall motion abnormality. Mild aortic stenosis. No significant change from 02/20/2023
# ASCVD/PAD
Status post bilateral lower extremity bypass surgeries angioplasty and stent in the past.
Status post right BKA on 01/29/2025 by .
Pain control.
Continue statin, aspirin
# Mild hypoxic respiratory insufficiency secondary to postop state and atelectasis. Has been Off O2.
# Mild hyperkalemia- If potassium goes high again will need low potassium diet to be restarted
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
Accu-Cheks and sliding scale coverage
Patient is on Xigduo , Lantus 30 units daily, Prandin 1 mg 3 times daily as outpatient
Lantus 30 units, metformin and Prandin , Farxiga plus sliding scale ordered
Sugars were elevated as patient was on a regular diet. Diet changed.
# Acute on chronic microcytic anemia
Transfused 1 unit of packed red blood cells 01/24/25, One more ordered for 02/02/25
No clear source of bleeding, possible acute post op blood loss anemia on chronic anemia
Rectal heme neg.
# History of intracranial/subdural hematoma
# Cognitive dysfunction
# H/O C Diff- On PO Vanco Prophylaxis while on AB.
# Enlarged prostate-Sees Joe Beauchamp as OP.
# Abnormal LFTs likely secondary to sepsis-improved
# Vitamin D deficiency-replace
# Sacral pressure ulcer, unstageable
# DVT prophylaxis-Eliquis
# Full code
D/W RN
Anticipated Discharge: > 48 hours
Subjective/Interval History
-
Date of Service: February 13, 2025
Objective Data
-
Vital Signs:
Vital Signs
Temp Pulse Resp BP Pulse Ox
97.4 F 44 16 123/52 98
02/13/25 07:20 02/13/25 07:20 02/13/25 07:20 02/13/25 07:20 02/13/25 07:20
I&O
02/12/25 02/13/25 02/14/25
06:59 06:59 06:59
Intake Total 1040 / 1040 1740 / 1740
Output Total 2700 / 2700 2950 / 2950
Balance -1660 / -1660 -1210 / -1210
--- NOTE | 2025-02-13 10:56 | W.PN.URO.CBU ---
Today's Communication / Plan
-
KEEP FLYNN TEACH FLYNN LEG BAG CARE
Assessment / Plan
-
Bladder tumor suspicious for malignancy
Hematuria
Pelvic lymphadenopathy + pelvic osteolytic lesions indicative of metastatic disease
Urology re-consulted re: new hematuria o/n on Xarelto (02/04).
02/05: CT Urogram requested => 6 x 2.3 x 2.0 cm bladder mass, necrotic lymph node within the right inguinal region concerning for lymphatic metastasis, lytic lesions throughout the visualized osseous structures, consistent with osseous metastasis.
Previously saw Dr. Hallman @[facility] Urology in last 12 months - PSA 'very low' per patient (daughter confirmed <1), and MARIO was normal.
PSA ordered 02/06 => 0.41
CT findings indicate likely metastatic bladder cancer as no additional primary lesions noted.CYSTO LOOKED IRRITATED NO OBVIOUS CANCER DID BXS AWAIT RESULTS BUT IF NO CANCER NEEDS BXS OF METS
Detailed discussion had w/ patient and daughter (Teetee) re: CT findings indicative of bladder tumor suspicious for bladder cancer in addition to LAD and osteolytic lesions indicative of metastatic disease.
Diagnosis
-
Date of Service: February 13, 2025
-
Patient Diagnosis:
Post Op Day:
Patient Diagnosis:
Bladder tumor suspicious for malignancy
Hematuria
Pelvic lymphadenopathy + pelvic osteolytic lesions indicative of metastatic disease
Subjective
-
KEEP FLYNN AWAIT BXS
Objective
-
Vital Signs
Temp Pulse Resp BP Pulse Ox
97.4 F 44 16 123/52 98
02/13/25 07:20 02/13/25 07:20 02/13/25 07:20 02/13/25 07:20 02/13/25 07:20
Intake and Output
02/12/25 02/13/25 02/14/25
06:59 06:59 06:59
Intake Total 1040 / 1040 1740 / 1740
Output Total 2700 / 2700 2950 / 2950
Balance -1660 / -1660 -1210 / -1210
Intake:
Oral fluids 840 / 840 1740 / 1740
IV fluids (Total) 200 / 200
Normosol 200 / 200
Output:
Urine, Flynn 1999 / 1999
Urine, Voided 200 / 200
True Urine Output from [facility] 2500 / 2500 950 / 950
Other:
Number of approximated MODERATE 3
amounts of urine
Number of unmeasured liquid
stools
Rectum 1
Laboratory Results
02/12/25 08:56
02/12/25 08:56
Review of Systems
-
: Difficulty Voiding
Physical Exam
-
General - well developed, well nourished, no acute distress
Chest - clear bilaterally
Abdomen - soft, non-tender, positive bowel sounds, no CVAT, no incisional pain or distention
Genitalia - normal
Rectal - normal
Skin - warm & dry with no rash
Neuro - AOx3, no motor deficits
Extremities - no clubbing, no cyanosis, no edema
Incision - clean, dry
Dressing - clean, dry, intact
Care Review
Data Reviewed
Discussed with: Nursing
CT Scan: Image Pers Reviewed
[2025-02-13 11:28] LABS: Glucose - Point of Care 120 mg/dl (70-99)
[2025-02-13] MEDS: PRANDIN 1 MG PO ×2 (12:16→17:59)
--- NOTE | 2025-02-13 15:19 | PTCARENOTE ---
Patient AAOX3 this AM, R BKA dry dressing reapplied by this RN and wound care to sacrum applied per order. Static overlay in place on bed, patient assist x1 to transfer to chair, wheeled into bathroom for hygiene. HR in 60s-70s bigeminy/trigeminy on
monitor. Per MD, obtain manual blood pressures and HR readings d/t discrepancy with vital machines and tele monitor - see vital sign documentation.
[2025-02-13] MEDS: CUBICIN 16 MG IV (15:58)
[2025-02-13 17:19] LABS: Glucose - Point of Care 221 mg/dl (70-99)
[2025-02-13] MEDS: NOVOLOG FLEXPEN-MODERATE RESISTANCE 3 UNITS SC (17:59)
[2025-02-13] MEDS: GLUCOPHAGE 500 MG PO (17:59)
[2025-02-13] MEDS: MELATONIN 3 MG PO (21:11)
[2025-02-13 21:42] LABS: Glucose - Point of Care 195 mg/dl (70-99)
[2025-02-14] VITALS (7 sets, daily range): BP systolic 105–123; BP diastolic 50–55; PULSE 65; O2SAT 100
[2025-02-14 06:07] LABS: Hemoglobin 8.1 g/dL (13.0-18.0); Mean Corp Hgb Conc. 31.2 g/dL (33.0-37.0); Mean Corpuscular Hgb 24.5 pg (27.0-31.0); Mean Corpuscular Volume 78.8 fL (80.0-94.0); Mean Platelet Volume 9.8 fL (7.4-10.4); Platelet Count 279 10^3/uL (130-400); Red Cell Dist. Width 18.9 % (11.5-14.5); White Blood Cell Count 8.1 10^3/uL (4.8-10.8)
[2025-02-14 06:41] LABS: Blood Urea Nitrogen 36 mg/dl (9-20); Calcium 7.8 mg/dl (8.4-10.2); Carbon Dioxide 29 mmol/L (22-30); Chloride 106 mmol/L (98-107); Estimated Creatinine Clearance 73 ml/min; Glucose 179 mg/dl (70-99); Potassium 4.5 mmol/L (3.5-5.1); Sodium 138 mmol/L (135-145); eGFR > 60.00
[2025-02-14 07:12] LABS: Glucose - Point of Care 134 mg/dl (70-99)
[2025-02-14] MEDS: NOVOLOG FLEXPEN-MODERATE RESISTANCE SC ×2 (07:55→17:35)
[2025-02-14] MEDS: FIRVANQ 125 MG PO (08:46)
[2025-02-14] MEDS: SENOKOT 17.2 MG PO ×2 (08:46→20:46)
[2025-02-14] MEDS: MIRALAX 17 GRAMS PO (08:46)
[2025-02-14] MEDS: COLACE 100 MG PO ×2 (08:46→20:46)
[2025-02-14] MEDS: LOW STRENGTH ASPIRIN 81 MG PO (08:46)
[2025-02-14] MEDS: LANTUS 0.3 UNITS SC (08:46)
[2025-02-14] MEDS: SANTYL OINTMENT 1 APPLIC TOPICAL (08:46)
[2025-02-14] MEDS: FLOMAX 0.4 MG PO (08:46)
[2025-02-14] MEDS: FARXIGA 10 MG PO (08:47)
[2025-02-14] MEDS: FLORASTOR 500 MG PO (08:47)
[2025-02-14] MEDS: VISBIOME 2 CAP PO (08:47)
[2025-02-14] MEDS: VITAMIN D3 (cholecalciferol) 25 MCG PO (08:47)
[2025-02-14] MEDS: GLUCOPHAGE 500 MG PO ×2 (08:47→16:39)
[2025-02-14] MEDS: PRANDIN 1 MG PO ×3 (08:48→16:38)
--- NOTE | 2025-02-14 11:04 | W.PN.URO.CBU ---
Today's Communication / Plan
-
farah out mon 07
Assessment / Plan
-
Bladder tumor suspicious for malignancy
Hematuria
Pelvic lymphadenopathy + pelvic osteolytic lesions indicative of metastatic disease
Urology re-consulted re: new hematuria o/n on Xarelto (02/04).
02/05: CT Urogram requested => 6 x 2.3 x 2.0 cm bladder mass, necrotic lymph node within the right inguinal region concerning for lymphatic metastasis, lytic lesions throughout the visualized osseous structures, consistent with osseous metastasis.
Previously saw Dr. Hallman @[facility] Urology in last 12 months - PSA 'very low' per patient (daughter confirmed <1), and MARIO was normal.
PSA ordered 02/06 => 0.41
CT findings indicate likely metastatic cancer but cysto vasicaly negative awaot path but if bladder benign meed bxs of irad to nodes or bone.
Diagnosis
-
Date of Service: February 14, 2025
-
Patient Diagnosis:
Post Op Day:
Patient Diagnosis:
Post Op Day:
Patient Diagnosis:
Bladder await pe=arth report but non suspicious for tcc but await path
Hematuria
Pelvic lymphadenopathy + pelvic osteolytic lesions indicative of metastatic disease
Subjective
-
fees welll
Objective
-
Vital Signs
Temp Pulse Resp BP Pulse Ox
97.4 F 58 16 120/54 97
02/14/25 07:15 02/14/25 07:15 02/14/25 07:15 02/14/25 07:15 02/14/25 07:15
Intake and Output
02/13/25 02/14/25 02/15/25
06:59 06:59 06:59
Intake Total 1740 / 1740 1140 / 1140
Output Total 2950 / 2950 3425 / 3425
Balance -1210 / -1210 -2285 / -2285
Intake:
Oral fluids 1740 / 1740 1140 / 1140
Output:
Urine, Gagna 1999 3425 / 3425
True Urine Output from [facility] 950 / 950
Other:
Number of unmeasured liquid
stools
Rectum 1 2
Laboratory Results
02/14/25 05:23
02/14/25 05:23
Review of Systems
-
: No Symptoms
Physical Exam
-
General - well developed, well nourished, no acute distress
Chest - clear bilaterally
Abdomen - soft, non-tender, positive bowel sounds, no CVAT, no incisional pain or distention
Genitalia - normal
Rectal - normal
Skin - warm & dry with no rash
Neuro - AOx3, no motor deficits
Extremities - no clubbing, no cyanosis, no edema
Incision - clean, dry
Dressing - clean, dry, intact
Counseling
-
gagan opruiz 0700 mon
Care Review
Data Reviewed
Discussed with: Hospitalist and Nursing
CT Scan: Image Pers Reviewed
[2025-02-14 11:58] LABS: Glucose - Point of Care 156 mg/dl (70-99)
[2025-02-14] MEDS: NOVOLOG FLEXPEN-MODERATE RESISTANCE 1 UNITS SC (12:43)
--- NOTE | 2025-02-14 12:48 | W.PN.HOSP.TC ---
Today's Communication/Plan
-
Discussed with oncology and urology
Probable voiding trial tomorrow
Wait for bladder biopsy before proceeding with bone biopsy or lymph node biopsy.
Assessment / Plan
Assessment / Plan
79-year-old man with nonhealing right foot wound urinary symptoms. He was hospitalized in April 2020 for with right heel wound/osteomyelitis underwent debridement and right SFA to peroneal bypass. He also received 6 weeks of IV vancomycin and
meropenem for ESBL E. coli. Subsequent arteriogram in November 2024 showed patent vessels. He goes to [facility] for wound care. He was recently seen at [place] wound VAC was removed.
CVS: S1-S2 Not payal
Chest: CTA B/L
Abdomen: Soft, NT / Bowel sounds present
Extremities: No edema left, right BKA bandaged
# Gross hematuria on 02/04/[address] urography on 02/05/25 showed bladder mass
Status post cystoscopy on 02/11/2025 with no evidence of bladder malignancy. Cytology pending
Xarelto has been on hold since 02-05-25
Sees Joe Beauchamp as OP.
# Necrotic lymph nodes and bony hauvnlc-smmph-dpet for biopsy once the bladder biopsy results are back per discussion with Dr. López today.
SPEP Pending.
# Diabetic foot infection
Nonhealing right ulcer/osteomyelitis
Sepsis secondary to MRSA bacteremia
Completed IV meropenem discontinued after amputation
Was on vancomycin which is changed to Cubicin ( Follow CPK)
Blood cultures from 01/25/2025 with MRSA
Blood cultures from 01/28/2025-negative
# Bradycardia likely secondary to PVCs
Pulse rate otherwise normal
Patient needs mechanical blood pressure monitoring
Echo 01/25/2025-normal biventricular size and systolic function without regional wall motion abnormality. Mild aortic stenosis. No significant change from 02/20/2023
# ASCVD/PAD
Status post bilateral lower extremity bypass surgeries angioplasty and stent in the past.
Status post right BKA on 01/29/2025 by .
Pain control.
Continue statin, aspirin
# Mild hypoxic respiratory insufficiency secondary to postop state and atelectasis. Has been Off O2.
# Mild hyperkalemia- If potassium goes high again will need low potassium diet to be restarted
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
Accu-Cheks and sliding scale coverage
Patient is on Xigduo , Lantus 30 units daily, Prandin 1 mg 3 times daily as outpatient
Lantus 30 units, metformin and Prandin , Farxiga plus sliding scale ordered
Sugars better with diet change
# Acute on chronic microcytic anemia
Transfused 1 unit of packed red blood cells 01/24/25, One more ordered for 02/02/25
No clear source of bleeding, possible acute post op blood loss anemia on chronic anemia
Rectal heme neg this admission.
# History of intracranial/subdural hematoma
# Cognitive dysfunction
# H/O C Diff- On PO Vanco Prophylaxis while on AB.
# Enlarged prostate-Sees Joe Beauchamp as OP.
# Abnormal LFTs likely secondary to sepsis-improved
# Vitamin D deficiency-replace
# Sacral pressure ulcer, unstageable
# DVT prophylaxis-SCDs
# Full code
D/W RN
Discussed with Dr. Salinas and Dr. López
Anticipated Discharge: > 48 hours
Subjective/Interval History
-
Date of Service: February 14, 2025
Objective Data
-
Labs:
Laboratory Results
02/14/25
05:23
WBC 8.1
Hgb 8.1 L
Hct 26.0 L
Plt Count 279
Sodium 138
Potassium 4.5
Chloride 106
Carbon Dioxide 29
BUN 36 H
Creatinine 0.9
Glucose 179 H
Calcium 7.8 L
Vital Signs:
Vital Signs
Temp Pulse Resp BP Pulse Ox
97.9 F 60 16 120/55 99
02/14/25 11:10 02/14/25 11:10 02/14/25 11:10 02/14/25 11:10 02/14/25 11:10
I&O
02/13/25 02/14/25 02/15/25
06:59 06:59 06:59
Intake Total 1740 / 1740 1140 / 1140
Output Total 2950 / 2950 3425 / 3425
Balance -1210 / -1210 -2285 / -2285
[2025-02-14] MEDS: CUBICIN 16 MG IV (16:39)
[2025-02-14 17:22] LABS: Glucose - Point of Care 134 mg/dl (70-99)
[2025-02-14] MEDS: MELATONIN 3 MG PO (20:46)
[2025-02-14 21:33] LABS: Glucose - Point of Care 206 mg/dl (70-99)
[2025-02-15 03:04] VITALS: BP 108/53
[2025-02-15 07:00] VITALS: BP 124/59
[2025-02-15 08:08] LABS: Glucose - Point of Care 116 mg/dl (70-99)
[2025-02-15] MEDS: NOVOLOG FLEXPEN-MODERATE RESISTANCE SC ×3 (08:23→17:09)
[2025-02-15] MEDS: FLORASTOR 500 MG PO (08:40)
[2025-02-15] MEDS: VISBIOME 2 CAP PO (08:40)
[2025-02-15] MEDS: SANTYL OINTMENT 1 APPLIC TOPICAL (08:40)
[2025-02-15] MEDS: FLOMAX 0.4 MG PO (08:40)
[2025-02-15] MEDS: PRANDIN 1 MG PO ×2 (08:40→17:10)
[2025-02-15] MEDS: VITAMIN D3 (cholecalciferol) 25 MCG PO (08:40)
[2025-02-15] MEDS: COLACE 100 MG PO ×2 (08:40→20:34)
[2025-02-15] MEDS: SENOKOT 17.2 MG PO ×2 (08:41→20:34)
[2025-02-15] MEDS: MIRALAX 17 GRAMS PO (08:41)
[2025-02-15] MEDS: FARXIGA 10 MG PO (08:41)
[2025-02-15] MEDS: GLUCOPHAGE 500 MG PO ×2 (08:41→17:10)
[2025-02-15] MEDS: LANTUS 0.3 UNITS SC (08:41)
[2025-02-15] MEDS: LOW STRENGTH ASPIRIN 81 MG PO (08:41)
[2025-02-15] MEDS: FIRVANQ 125 MG PO (08:42)
--- NOTE | 2025-02-15 09:51 | PTCARENOTE ---
gagan removed this AM at 0845. pt wound care also completed. pt with x1 assist transferred to chair. air cushion and stump protector in place. stump site with no drainage. call light within reach.
--- NOTE | 2025-02-15 10:28 | W.PN.URO.CBU ---
Today's Communication / Plan
-
farah out await pathoogy
Assessment / Plan
-
Hematuria
Pelvic lymphadenopathy + pelvic osteolytic lesions indicative of metastatic disease
Urology re-consulted re: new hematuria o/n on Xarelto (02/04).
02/05: CT Urogram requested => 6 x 2.3 x 2.0 cm bladder mass, necrotic lymph node within the right inguinal region concerning for lymphatic metastasis, lytic lesions throughout the visualized osseous structures, consistent with osseous metastasis.
Previously saw Dr. Hallman @[facility] Urology in last 12 months - PSA 'very low' per patient (daughter confirmed <1), and MARIO was normal.
PSA ordered 02/06 => 0.41
CT findings indicate likely metastatic cancer but cysto negative biopsoed but low degree suspicion if as excpected neg for bladder tccc then bx node , bone and/ pey scan
Diagnosis
-
Date of Service: February 15, 2025
-
Patient Diagnosis:
Post Op Day:
Patient Diagnosis:
Post Op Day:
Patient Diagnosis:
Post Op Day:
Patient Diagnosis:
Bladder await pe=arth report but non suspicious for tcc but await path
Hematuria
Pelvic lymphadenopathy + pelvic osteolytic lesions indicative of metastatic disease
Subjective
-
await path feels well
Objective
-
Vital Signs
Temp Pulse Resp BP Pulse Ox
97.9 F 61 16 124/59 99
02/15/25 07:00 02/15/25 07:00 02/15/25 07:00 02/15/25 07:00 02/15/25 10:01
Intake and Output
02/14/25 02/15/25 02/16/25
06:59 06:59 06:59
Intake Total 1140 / 1140 655 / 655
Output Total 3425 / 3425 3875 / 3875
Balance -2285 / -2285 -3220 / -3220
Intake:
Oral fluids 1140 / 1140 655 / 655
Output:
Urine, Farah 3425 / 3425 3875 / 3875
Other:
Number of unmeasured liquid
stools
Rectum 2 2
Laboratory Results
02/14/25 05:23
02/14/25 05:23
Review of Systems
-
: No Symptoms
Physical Exam
-
General - well developed, well nourished, no acute distress
Chest - clear bilaterally
Abdomen - soft, non-tender, positive bowel sounds, no CVAT, no incisional pain or distention
Genitalia - normal
Rectal - normal
Skin - warm & dry with no rash
Neuro - AOx3, no motor deficits
Extremities - no clubbing, no cyanosis, no edema
Incision - clean, dry
Dressing - clean, dry, intact
Care Review
Data Reviewed
Discussed with: Hospitalist
[2025-02-15 11:00] VITALS: BP 118/63
[2025-02-15 11:52] LABS: Glucose - Point of Care 141 mg/dl (70-99)
--- NOTE | 2025-02-15 12:54 | W.PN.ID1 ---
Date of Service
Date of Service: February 15, 2025
Today's Communication
Continue antibiotics.
Assessment / Plan
Leukocytosis
Recent history of C. difficile
Chronic right heel wound / osteomyelitis
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
MRSA bacteremia (01/22, 01/25)
- urine vs (R) foot source
Elevated ESR / CRP
- improved on this weeks testing
DM
Diabetic neuropathy,
HLD
PAD
Subdural hematoma
Recommendations:
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
Blood culture on 01/22 and 01/25 positive; 01/28 bcx x 2 neg.
Echocardiogram without evidence of vegetation although mitral valve leaflets and aortic valve leaflets noted to be thickened. ESR and CRP elevated.
Continue daptomycin in the treatment of MRSA bacteremia through 03/08/25. (Would treat 6 weeks given sustained bacteremia, elevated ESR/CRP and ECHO findings.)
- Holding statin while on daptomycin.
Will follow weekly BMP, CBC with differential, ESR and CRP. Most recent ESR and CRP improved.
Continue prophylactic oral vancomycin given recent history of C. difficile.
����������������������������������������������������������
Chief Complaint
-: Bacteremia
Subjective / Review of Systems
Review of Systems: No Fever and No Chills
Vital Signs / Physical Exam
Vital Signs
Vital Signs
Temp Pulse Resp BP Pulse Ox
97.6 F 61 16 118/63 100
02/15/25 11:00 02/15/25 11:00 02/15/25 11:00 02/15/25 11:00 02/15/25 11:00
Physical Exam
Constitutional: No Acute Distress and Comfortable
Eyes: Sclera Anicteric
Cardiovascular: Regular Rate
Pulmonary: Clear and Non Labored
Gastrointestinal: Non Distended
Wound: Other (Right BKA stump protector in place.)
Neurological: Awake and Alert
Psychological: Calm
Objective Data
Lab Data
Lab Results
02/14/25 05:23
02/14/25 05:23
ESR 110 mm/hour (0-20) H 02/09/25 05:29
Estimated Creat Clear 73 ml/min 02/14/25 05:23
Lactic Acid 1.1 mmol/L (0.7-2.0) 01/23/25 01:37
Total Bilirubin 0.4 mg/dl (0.2-1.3) 01/29/25 05:36
AST 20 U/L (17-59) 01/29/25 05:36
ALT 38 U/L (0-50) 01/29/25 05:36
Alkaline Phosphatase 103 U/L (38-126) 01/29/25 05:36
C-Reactive Protein 40.00 mg/L (0.0-10.00) H 02/09/25 05:29
Most recent labs reviewed.
Micro Results:
02/04/25 17:27 Urine Culture - Final
Urine No Significant Growth
01/28/25 14:03 Blood Culture - Final
Blood/Venous No Growth - Final Report
01/28/25 12:33 Blood Culture - Final
Blood/Venous No Growth - Final Report
01/25/25 07:05 Blood Culture - Final
Blood/Venous Staph aureus MRSA
Gram Stain - Final
01/29/25 15:20 Urine Culture - Final
Urine Yeast
01/22/25 23:15 Blood Culture - Final
Blood/Venous Staph aureus MRSA
Gram Stain - Final
01/22/25 23:15 Blood Culture - Final
Blood/Venous Staph aureus MRSA
Gram Stain - Final
01/24/25 12:14 Blood Culture - Final
Blood/Venous No Growth - Final Report
01/24/25 11:39 Blood Culture - Final
Blood/Venous No Growth - Final Report
01/22/25 23:15 Urine Culture - Final
Urine
Imaging:
01/25/25 ECHO (TTE): Normal biventricular size and systolic function. No regional wall motion abnormality. Mild aortic stenosis. EF approximately 65%. Thickened mitral valve leaflets. Thickened aortic valve leaflets with restricted motion. No
intracardiac mass or thrombus formation seen. Please see full dictation for additional detail.
01/23/2025 CXR (2 view): No focal consolidation, pleural effusion or pneumothorax noted. Please see full dictation for additional detail.
[2025-02-15] MEDS: PRANDIN PO (13:34)
[2025-02-15 15:00] VITALS: BP 118/59
--- NOTE | 2025-02-15 15:57 | CM ---
Reviewed the chart notes and spoke with the patient at the bedside. The patient's farah was removed today. Patient able to urinate. Patient anticipates being discharged to [facility] once medically stable. CM continues to be
available to patient/family and is monitoring medical plan for needs at discharge.
Plan: Discharge to Acute Rehab once medically stable. Prior auth will be required.
--- NOTE | 2025-02-15 16:04 | W.PN.HOSP.TC ---
Today's Communication/Plan
-
Frey catheter removed for voiding trial per
Resume Xarelto monitoring for recurrent hematuria.
Follow path report.
Contemplating bone biopsy if path is unrevealing over this admission
Continue IV antibiotics
Assessment / Plan
Assessment / Plan
Impression:
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
MRSA bacteremia secondary to infected lower extremity wound.
Sepsis secondary to above present on admission
Bladder mass with gross hematuria and anticoagulation with factor Xa inhibitor
Severe PAD
Acute on chronic anemia with microcytosis, multifactorial due to acute blood loss/postoperative
Acute hypoxic respiratory insufficiency postoperatively secondary to lung toxicity now resolved.
Hyperkalemia improved.
Sacral pressure ulcer, unstageable
Other conditions:
Diabetes type 2 with neuropathy.
Chronic microcytic anemia.
Prior history of C. difficile infection
BPH.
Mild cognitive dysfunction
History of subdural hematoma
Plan:
Gross hematuria developed on 02/04. Previously with microhematuria while on Xarelto
CT urography 02/05 findings consistent with bladder mass and what looks like distant metastatic disease including necrotic lymph nodes and bony lytic metastasis.
So far no evidence of clot retention.
Normal renal function.
Discussed with urology with tentative plan for cystoscopy and biopsy.
Ecology evaluation
Xarelto placed on hold on 02/05
Status post cystoscopy on 02/11 with no evidence of bladder malignancy. Additional cytology pending.
Frey catheter removed on 02/15 for voiding trial
Resume Xarelto
Given CT findings with necrotic lymphadenopathy as well as diffuse lytic skeletal lesions and pending oncology input, would consider bone biopsy.
Nonhealing right lower extremity ulcer and this
Sepsis present on admission secondary to above present on admission now resolved.
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
Blood cultures cleared on 01/28
Echocardiogram with preserved LVEF no clear regurgitation, although with thickening mitral leaflets.
Noted elevated inflammatory markers.
Antibiotics consolidated to daptomycin through 03/08/2025 to complete total of 6 weeks of therapy. Monitor CK while on
On oral vancomycin for prophylaxis (prior history of C. difficile)
Continue probiotics
Bradycardia
ECG was normal sinus rhythm
Not on medication that commonly causes bradycardia, opioid might cause bradycardia
Monitor on telemetry
Severe PAD.
Status post right BKA.
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
On aspirin and Xarelto.
Ideally resume anticoagulation with Xarelto GARETT with required urologic workup.
IDDM.
Recent hemoglobin A1c 8.9.
Preadmission regimen including Xigduo, Prandin, Lantus
Hold metformin given contrast exposure with CT urogram on 02/05
Continue Lantus
Continue Prandin
Continue basal bolus protocol with serial Accu-Cheks
Acute on chronic anemia multifactorial due to postoperative blood loss as well as ongoing micro�gross hematuria
Iron stores with very mild iron deficiency also evidence for anemia of chronic disease.
Status post transfusion total of 2 units of packed red blood cells over this hospitalization with appropriate response.
Rectal heme-negative
Noted transient and isolated ALT elevation.
Imaging with no evidence of hepatic abnormalities.
Full code.
Anticipated Discharge: 24 - 48 hours
Subjective/Interval History
-
Date of Service: February 15, 2025
Objective Data
-
Vital Signs:
Vital Signs
Temp Pulse Resp BP Pulse Ox
97.6 F 61 16 118/63 100
02/15/25 11:00 02/15/25 11:00 02/15/25 11:00 02/15/25 11:00 02/15/25 11:00
I&O
02/14/25 02/15/25 02/16/25
06:59 06:59 06:59
Intake Total 1140 / 1140 655 / 655
Output Total 3425 / 3425 3875 / 3875
Balance -2285 / -2285 -3220 / -3220
Physical Exam
-
General: Well Developed and No Apparent Distress
HEENT: Normocephalic, Atraumatic and Moist Mucous Membranes
Respiratory: Clear to Auscultation
Cardiac: Regular Rhythm and S1/S2; Negative Murmur, Rub or Gallop
GI: Soft, Nontender, Nondistended and Normal Bowel Sounds; Negative Organomegaly
Rectal: Deferred by Provider
Musculoskeletal: No Clubbing, No Cyanosis, No Edema and Other (right BKA)
Skin: Negative Rash
Neuro: Nonfocal/Grossly Intact
--- NOTE | 2025-02-15 16:42 | W.PN.ONC2 ---
Today's Communication / Plan
-
.
Impression
Impression
Large bladder mass with hematuria, TURBT showed no evidence of bladder tumor
Necrotic pelvic node
Multiple lytic bone lesions in lumbar spine pelvis and femora
Recent right lower extremity amputation for osteomyelitis
MRSA bacteremia
Peripheral arterial disease
Diabetes
Atrial fibrillation
Plan
Plan
awaiting path from TURBT
defer additional biopsy until path available from TURBT
Outpatient PET scan and if needed bone biopsy can always be considered at a future date.
Subjective/Objective
Subjective
no new complaints
Vital Signs:
Vital Signs
Temp Pulse Resp BP Pulse Ox
98.3 F 67 16 118/59 100
02/15/25 15:00 02/15/25 15:00 02/15/25 15:00 02/15/25 15:00 02/15/25 15:00
Lab Results:
Laboratory Data
WBC 8.1 10^3/uL (4.8-10.8) 02/14/25 05:23
Hgb 8.1 g/dL (13.0-18.0) L 02/14/25 05:23
Plt Count 279 10^3/uL (130-400) 02/14/25 05:23
eGFR > 60.00 02/14/25 05:23
Physical Exam
HEENT: No Jaundice
Cardiology: Normal Sinus Rhythm
Pulmonary: Clear
GI: Soft
Extremities: Pulses Present
[2025-02-15 17:10] LABS: Glucose - Point of Care 63 mg/dl (70-99)
[2025-02-15] MEDS: CUBICIN 16 MG IV (17:10)
[2025-02-15 17:26] LABS: Glucose - Point of Care 81 mg/dl (70-99)
[2025-02-15 18:33] LABS: Glucose - Point of Care 132 mg/dl (70-99)
[2025-02-15 19:23] VITALS: BP 139/56
[2025-02-15] MEDS: XARELTO 2.5 MG PO (20:34)
[2025-02-15 20:51] LABS: Glucose - Point of Care 163 mg/dl (70-99)
[2025-02-15] MEDS: MELATONIN 3 MG PO (22:40)
[2025-02-15 23:25] VITALS: BP 122/55
[2025-02-15 23:29] LABS: Glucose - Point of Care 177 mg/dl (70-99)
[2025-02-16 03:30] VITALS: BP 109/46
[2025-02-16 05:01] LABS: Glucose - Point of Care 63 mg/dl (70-99)
[2025-02-16 05:15] LABS: % Basophils 0.9 % (0-2); % Eosinophils 4.8 % (0-6); % Immature Granulocytes 0.8 % (0-0.5); % Lymphocytes 24.6 % (20.5-51.1); % Monocytes 13.9 % (1.7-9.3); Absolute Basophils 0.1 10^3/uL (0-0.2); Absolute Eosinophils 0.4 10^3/uL (0-0.7); Absolute Immature Granulocytes 0.1 10^3/uL (0-0.05); Absolute Lymphocytes 1.9 10^3/uL (1.2-3.4); Absolute Monocytes 1.1 10^3/uL (0.1-0.6); Absolute Neutrophils 4.3 10^3/uL (1.4-6.5); Hematocrit 28.7 % (39.0-52.0); Hemoglobin 8.9 g/dL (13.0-18.0); Mean Corpuscular Hgb 24.5 pg (27.0-31.0); Mean Corpuscular Volume 79.1 fL (80.0-94.0); Mean Platelet Volume 9.6 fL (7.4-10.4); Nucleated Red Blood Cells % 0 % (-); Platelet Count 283 10^3/uL (130-400); Red Blood Cell Count 3.63 10^6/uL (4.70-6.10); Red Cell Dist. Width 18.8 % (11.5-14.5); White Blood Cell Count 7.8 10^3/uL (4.8-10.8)
[2025-02-16 05:19] LABS: Glucose - Point of Care 75 mg/dl (70-99)
[2025-02-16 05:22] LABS: Blood Urea Nitrogen 29 mg/dl (9-20); Calcium 8.6 mg/dl (8.4-10.2); Carbon Dioxide 27 mmol/L (22-30); Chloride 108 mmol/L (98-107); Estimated Creatinine Clearance 82 ml/min; Glucose 61 mg/dl (70-99); Potassium 4.5 mmol/L (3.5-5.1); Sodium 137 mmol/L (135-145); eGFR > 60.00
[2025-02-16 07:11] LABS: Glucose - Point of Care 101 mg/dl (70-99)
[2025-02-16] MEDS: NOVOLOG FLEXPEN-MODERATE RESISTANCE SC ×2 (07:13→16:27)
[2025-02-16 07:35] VITALS: BP 103/53
--- NOTE | 2025-02-16 08:22 | W.PN.ONC2 ---
Today's Communication / Plan
-
.
Impression
Impression
Large bladder mass with hematuria, TURBT showed no evidence of bladder tumor -cytology non-malignant
Necrotic pelvic node -may be reactive to recent infection RLE
Multiple lytic bone lesions in lumbar spine pelvis and femora
Recent right lower extremity amputation for osteomyelitis
MRSA bacteremia
Peripheral arterial disease
Diabetes
Atrial fibrillation
Plan
Plan
Bone scan to further evaluate lytic lesions
f/u SPEP
Subjective/Objective
Subjective
no new complaints
Vital Signs:
Vital Signs
Temp Pulse Resp BP Pulse Ox
97.9 F 66 16 103/53 99
02/16/25 07:35 02/16/25 07:35 02/16/25 07:35 02/16/25 07:35 02/16/25 07:35
Lab Results:
Laboratory Data
WBC 7.8 10^3/uL (4.8-10.8) 02/16/25 04:41
Hgb 8.9 g/dL (13.0-18.0) L 02/16/25 04:41
Plt Count 283 10^3/uL (130-400) 02/16/25 04:41
eGFR > 60.00 02/16/25 04:41
Physical Exam
R BKA
HEENT: Moist Mucous Membranes; No Jaundice
Cardiology: Normal Sinus Rhythm
Pulmonary: Clear
GI: Soft
Extremities: Pulses Present
[2025-02-16] MEDS: FIRVANQ 125 MG PO (08:35)
[2025-02-16] MEDS: LANTUS 0.3 UNITS SC (08:35)
[2025-02-16] MEDS: VISBIOME 2 CAP PO (08:36)
[2025-02-16] MEDS: XARELTO 2.5 MG PO ×2 (08:36→20:27)
[2025-02-16] MEDS: FLORASTOR 500 MG PO (08:36)
[2025-02-16] MEDS: VITAMIN D3 (cholecalciferol) 25 MCG PO (08:37)
[2025-02-16] MEDS: PRANDIN 1 MG PO ×2 (08:37→12:00)
[2025-02-16] MEDS: FLOMAX 0.4 MG PO (08:37)
[2025-02-16] MEDS: LOW STRENGTH ASPIRIN 81 MG PO (08:37)
[2025-02-16] MEDS: FARXIGA 10 MG PO (08:37)
[2025-02-16] MEDS: GLUCOPHAGE 500 MG PO (08:37)
[2025-02-16] MEDS: SANTYL OINTMENT 1 APPLIC TOPICAL (08:38)
[2025-02-16] MEDS: MIRALAX PO (08:38)
[2025-02-16] MEDS: SENOKOT PO ×2 (08:38→20:27)
[2025-02-16] MEDS: COLACE PO ×2 (08:38→20:26)
--- NOTE | 2025-02-16 10:34 | W.PN.UPDATE ---
Update Note
Progress Note Update
02/11: s/p cystoscopy, evacuation of debris/clot material, TURBT (posterior and bladder base resection).
Intra-op => NO bladder tumors or mass indicative of bladder cancer noted (given preop CT findings of 6 cm x 2 cm lobulated mass).
Pathology => Mixed acute and lymphohistiocytic chronic inflammatory exudate with inflammatory foreign body type giant cells.
Pathology (benign) reviewed w/ daughter this AM on telephone.
Will defer further diagnostic work-up to Oncology for necrotic LN + osteolytic bone lesions.
Urology following peripherally, please call w/ questions (Dr. Bronson).
[2025-02-16 11:00] VITALS: BP 105/53
[2025-02-16 11:02] LABS: Glucose - Point of Care 163 mg/dl (70-99)
[2025-02-16] MEDS: NOVOLOG FLEXPEN-MODERATE RESISTANCE 1 UNITS SC (12:12)
--- NOTE | 2025-02-16 14:30 | CM ---
Reviewed the chart notes. Updated clinicals sent to [facility]. CM continues to be available to patient/family and is monitoring medical plan for needs at discharge.
Plan: Discharge to [facility] when medically stable. Precert will be required.
--- NOTE | 2025-02-16 15:01 | W.PN.HOSP.TC ---
Today's Communication/Plan
-
Pathology benign.
Bone scan ordered.
Discussed with oncology.
Frey catheter removed with no retention
Anticoagulation resumed.
Has been on antibiotics
Assessment / Plan
Assessment / Plan
Impression:
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
MRSA bacteremia secondary to infected lower extremity wound.
Sepsis secondary to above present on admission
Bladder mass with gross hematuria and anticoagulation with factor Xa inhibitor
Severe PAD
Acute on chronic anemia with microcytosis, multifactorial due to acute blood loss/postoperative
Acute hypoxic respiratory insufficiency postoperatively secondary to lung toxicity now resolved.
Hyperkalemia improved.
Sacral pressure ulcer, unstageable
Other conditions:
Diabetes type 2 with neuropathy.
Chronic microcytic anemia.
Prior history of C. difficile infection
BPH.
Mild cognitive dysfunction
History of subdural hematoma
Plan:
Gross hematuria developed on 02/04. Previously with microhematuria while on Xarelto
CT urography 02/05 findings consistent with bladder mass and what looks like distant metastatic disease including necrotic lymph nodes and bony lytic metastasis.
So far no evidence of clot retention.
Normal renal function.
Discussed with urology with tentative plan for cystoscopy and biopsy.
Ecology evaluation
Xarelto placed on hold on 02/05
Status post cystoscopy on 02/11 with no evidence of bladder malignancy. Additional cytology pending.
Frey catheter removed on 02/15 for voiding trial
Resume Xarelto
Pathology is benign
Given CT findings with necrotic lymphadenopathy as well as diffuse lytic skeletal lesions and pending oncology input, would consider bone biopsy.
Nonhealing right lower extremity ulcer and this
Sepsis present on admission secondary to above present on admission now resolved.
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
Blood cultures cleared on 01/28
Echocardiogram with preserved LVEF no clear regurgitation, although with thickening mitral leaflets.
Noted elevated inflammatory markers.
Antibiotics consolidated to daptomycin through 03/08/2025 to complete total of 6 weeks of therapy. Monitor CK while on
On oral vancomycin for prophylaxis (prior history of C. difficile)
Continue probiotics
Bradycardia
ECG was normal sinus rhythm
Not on medication that commonly causes bradycardia, opioid might cause bradycardia
Monitor on telemetry
Severe PAD.
Status post right BKA.
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
On aspirin and Xarelto.
Ideally resume anticoagulation with Xarelto GARETT with required urologic workup.
IDDM.
Recent hemoglobin A1c 8.9.
Preadmission regimen including Xigduo, Prandin, Lantus
Hold metformin given contrast exposure with CT urogram on 02/05
Continue Lantus
Continue Prandin
Continue basal bolus protocol with serial Accu-Cheks
Acute on chronic anemia multifactorial due to postoperative blood loss as well as ongoing micro�gross hematuria
Iron stores with very mild iron deficiency also evidence for anemia of chronic disease.
Status post transfusion total of 2 units of packed red blood cells over this hospitalization with appropriate response.
Rectal heme-negative
Noted transient and isolated ALT elevation.
Imaging with no evidence of hepatic abnormalities.
Full code.
Anticipated Discharge: 24 - 48 hours
Subjective/Interval History
-
Date of Service: February 16, 2025
Objective Data
-
Labs:
Laboratory Results
02/16/25
04:41
WBC 7.8
Hgb 8.9 L
Hct 28.7 L
Plt Count 283
Sodium 137
Potassium 4.5
Chloride 108 H
Carbon Dioxide 27
BUN 29 H
Creatinine 0.8
Glucose 61 L
Calcium 8.6
Vital Signs:
Vital Signs
Temp Pulse Resp BP Pulse Ox
97.9 F 66 16 105/53 99
02/16/25 11:00 02/16/25 11:00 02/16/25 11:00 02/16/25 11:00 02/16/25 11:27
I&O
02/15/25 02/16/25 02/17/25
06:59 06:59 06:59
Intake Total 655 / 655 1920 / 1920
Output Total 3875 / 3875 1550 / 1550
Balance -3220 / -3220 370 / 370
Physical Exam
-
General: Well Developed and No Apparent Distress
HEENT: Normocephalic, Atraumatic and Moist Mucous Membranes
Respiratory: Clear to Auscultation
Cardiac: Regular Rhythm and S1/S2; Negative Murmur, Rub or Gallop
GI: Soft, Nontender, Nondistended and Normal Bowel Sounds; Negative Organomegaly
Rectal: Deferred by Provider
Musculoskeletal: No Clubbing, No Cyanosis, No Edema and Other (right BKA)
Skin: Negative Rash
Neuro: Nonfocal/Grossly Intact
[2025-02-16] MEDS: CUBICIN 16 MG IV (15:13)
--- NOTE | 2025-02-16 15:18 | W.PN.UPDATE ---
Update Note
Progress Note Update
Derik removed from right lower extremity BKA stump site. Patient tolerated removing of derik well, no evidence of skin breakdown, suture line remains well-approximated. Steri-Strips placed for support.
[2025-02-16 15:25] VITALS: BP 139/65
--- NOTE | 2025-02-16 15:58 | WOUNDNOTE ---
[facility] RN NOTE: Patient visited to follow up on unstageable sacral PI. When compared to pictures from 02/12, wound looks slightly less inflamed and wound bed is drain cleaner plumber. Continue appropriate wound care with Santyl. Patient demonstrated good ability to
turn self in bed. He stated he does sit in chair with air cushion and uses Z-foam cushion for off-loading sacrum. Patient reports good appetite and denies incontinence since farah removal. Patient is on a static air overlay. Patient declined to have
air overlay properly inflated and said it feels like 'a rock' when too much air is in it. Plan is to locate [employer] [employer] for patient and to encourage frequent off-loading and repositioning in bed. Will continue to follow during in-patient stay.
[2025-02-16 16:26] LABS: Glucose - Point of Care 60 mg/dl (70-99)
[2025-02-16] MEDS: PRANDIN PO (16:52)
[2025-02-16] MEDS: GLUCOPHAGE PO (16:52)
[2025-02-16 16:54] LABS: Glucose - Point of Care 87 mg/dl (70-99)
[2025-02-16 19:15] VITALS: BP 120/52
--- NOTE | 2025-02-16 19:58 | PTCARENOTE ---
Patient's blood sugar 60 for dinnertime, meal at bedside, repeat sugar 15 minutes later 87. Patient asymptomatic. Scheduled PO metformin and prandin held per MD. This RN communicated with MD regarding patient's intermittent low blood sugars over
last 24-48 hours, verbal order taken by this RN from MD to decrease patient's 0800 subq lantus from 30 units to 15 units. Verbal sent to pharmacy.
[2025-02-16 19:59] LABS: Glucose - Point of Care 113 mg/dl (70-99)
[2025-02-16 21:17] LABS: Albumin 2.38 g/dL (3.75-5.01); Alpha 1 Globulin 0.46 g/dL (0.19-0.46); Alpha 2 Globulin 1.12 g/dL (0.48-1.05); SPEP IFE Reflex IFE Done; Total Protein-Electrophoresis 6.3 g/dL (6.3-8.2)
[2025-02-16 22:36] LABS: Glucose - Point of Care 225 mg/dl (70-99)
[2025-02-16] MEDS: MELATONIN 3 MG PO (22:40)
[2025-02-16 23:20] VITALS: BP 132/56
[2025-02-17 03:10] VITALS: BP 140/59
[2025-02-17 06:43] LABS: IgA 578 mg/dL (68-408); IgG 1480 mg/dL (768-1632); IgM 58 mg/dL (35-263)
--- NOTE | 2025-02-17 07:12 | W.PN.ONC2 ---
Today's Communication / Plan
-
At this point, heme-onc will sign off case without diagnosis of malignancy other than abnormal radiology imaging.
Please re-consult us if malignancy identified.
Impression
Impression
Bladder mass with hematuria, TURBT showed no evidence of bladder tumor -cytology non-malignant
Necrotic pelvic node -may be reactive to recent infection RLE
Multiple lytic bone lesions in lumbar spine pelvis and femora -bone scan negative for malignancy, PSA, myeloma testing negative
Recent right lower extremity amputation for osteomyelitis
MRSA bacteremia
Peripheral arterial disease
Diabetes
Atrial fibrillation
Plan
Plan
Bone scan JAC
TUR of bladder mass -negative for malignancy
PSA and SPEP/OSWALD/SFLC myeloma panel negative (except for very faint possible M spike which is nonspecific).
At this point, no clear-cut evidence of malignancy (eg, bladder cancer, multiple myeloma, prostate cancer).
If additional bladder surgery is performed and cancer identified, reconsult us.
Consider repeat imaging in 2 to 3 months to evaluate for resolution of adenopathy with consideration of lymph node biopsy if necrotic adenopathy does not resolve.
No role for PET scanning at this point. Insurance will likely not approve it.
Subjective/Objective
Chief Complaint
ACS Oncology F/U
Subjective
No new complaints this morning. He did develop some recurrent hematuria following the bone scan.
Vital Signs:
Vital Signs
Temp Pulse Resp BP Pulse Ox
98.0 F 66 17 140/59 98
02/17/25 03:10 02/17/25 03:10 02/17/25 03:10 02/17/25 03:10 02/17/25 03:10
Lab Results:
Laboratory Data
WBC 7.8 10^3/uL (4.8-10.8) 02/16/25 04:41
Hgb 8.9 g/dL (13.0-18.0) L 02/16/25 04:41
Plt Count 283 10^3/uL (130-400) 02/16/25 04:41
eGFR > 60.00 02/16/25 04:41
Laboratory Tests
02/06/25 02/10/25
05:56 09:05
Prostate Specific Ag 0.41
IgG 1480
IgA 578 H
IgM 58
Free [place] LC, Quant 77.16 H
Free [place] LC, Quant 37.31 H
Free [place]/Lambda Ratio 2.07 H
Physical Exam
AAOx3 and NAD
HEENT: No Jaundice
Cardiology: S1 and S2
Pulmonary: Clear
GI: Soft
[2025-02-17 07:50] VITALS: BP 135/64
[2025-02-17 07:52] LABS: Glucose - Point of Care 98 mg/dl (70-99)
[2025-02-17] MEDS: LANTUS 0.15 UNITS SC (08:29)
[2025-02-17] MEDS: GLUCOPHAGE 500 MG PO ×2 (08:30→17:31)
[2025-02-17] MEDS: FARXIGA 10 MG PO (08:30)
[2025-02-17] MEDS: FIRVANQ 125 MG PO (08:30)
[2025-02-17] MEDS: FLORASTOR 500 MG PO (08:30)
[2025-02-17] MEDS: VISBIOME 2 CAP PO (08:32)
[2025-02-17] MEDS: SANTYL OINTMENT 1 APPLIC TOPICAL (08:32)
[2025-02-17] MEDS: LOW STRENGTH ASPIRIN 81 MG PO (08:32)
[2025-02-17] MEDS: SENOKOT PO (08:32)
[2025-02-17] MEDS: FLOMAX 0.4 MG PO (08:32)
[2025-02-17] MEDS: VITAMIN D3 (cholecalciferol) 25 MCG PO (08:32)
[2025-02-17] MEDS: PRANDIN 1 MG PO ×3 (08:32→17:31)
[2025-02-17] MEDS: XARELTO 2.5 MG PO (08:33)
[2025-02-17] MEDS: NOVOLOG FLEXPEN-MODERATE RESISTANCE SC ×2 (08:33→12:05)
[2025-02-17] MEDS: COLACE PO (08:33)
[2025-02-17] MEDS: MIRALAX PO (08:33)
[2025-02-17 09:50] VITALS: BMI 24.3
--- NOTE | 2025-02-17 10:02 | PTCARENOTE ---
pt noted this am with blood tinge urine. denies pain or discomfort at this time. Dr Wagner made aware. Order to hold Xarelto and in place.plan of care ongoing.
--- NOTE | 2025-02-17 10:43 | CM ---
Addendum entered by Darlene Nix 02/17/25 14:54:
left for [phone], liaison with [facility] who is to call back with bed availability and to confirm auth.
Original Note:
Patient seen in room on . Patient for testing and volunteer at door to transport. Patient confirmed his plan to go to [facility]. CM will call to confirm bed availability and confirm plan. Patient will need auth when medically
stable. CM will continue to follow for discharge planning needs.
Plan; Acute rehab
[2025-02-17 11:30] VITALS: BP 121/48
[2025-02-17 12:00] LABS: Glucose - Point of Care 111 mg/dl (70-99)
[2025-02-17 15:30] VITALS: BP 141/51
--- NOTE | 2025-02-17 15:40 | W.PN.HOSP.TC ---
Today's Communication/Plan
-
Monitor for recurrent hematuria
Hold Xarelto
Continue IV antibiotics
Discharge planning to acute rehab with IV antibiotics through 03/08/2025 to complete 6 weeks of treatment
Assessment / Plan
Assessment / Plan
Impression:
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
MRSA bacteremia secondary to infected lower extremity wound.
Sepsis secondary to above present on admission
Bladder mass with gross hematuria and anticoagulation with factor Xa inhibitor
Severe PAD
Acute on chronic anemia with microcytosis, multifactorial due to acute blood loss/postoperative
Acute hypoxic respiratory insufficiency postoperatively secondary to lung toxicity now resolved.
Hyperkalemia improved.
Sacral pressure ulcer, unstageable
Other conditions:
Diabetes type 2 with neuropathy.
Chronic microcytic anemia.
Prior history of C. difficile infection
BPH.
Mild cognitive dysfunction
History of subdural hematoma
Plan:
Gross hematuria developed on 02/04. Previously with microhematuria while on Xarelto
CT urography 02/05 findings consistent with bladder mass and what looks like distant metastatic disease including necrotic lymph nodes and bony lytic metastasis.
So far no evidence of clot retention.
Normal renal function.
Status post cystoscopy on 02/11 with no evidence of bladder malignancy. Additional cytology pending.
Frey catheter removed on 02/15 with no evidence for recurrent retention
Pathology is benign
Bone scan without confirmation of lytic lesions. SPEP negative ruling out multiple myeloma. Necrotic lymph node could be attributed to recent right lower extremity infection. Will need outpatient reimaging.
No additional oncologic workup recommended at this point
Recurrent hematuria on 02/18 while back on Xarelto
Monitor for retention
Hold Xarelto for additional 7 to 10 days and resume it as outpatient if no recurrent hematuria
Nonhealing right lower extremity ulcer and this
Sepsis present on admission secondary to above present on admission now resolved.
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
Blood cultures cleared on 01/28
Echocardiogram with preserved LVEF no clear regurgitation, although with thickening mitral leaflets.
Noted elevated inflammatory markers.
Antibiotics consolidated to daptomycin through 03/08/2025 to complete total of 6 weeks of therapy. Monitor CK while on
On oral vancomycin for prophylaxis (prior history of C. difficile)
Continue probiotics
Bradycardia
ECG was normal sinus rhythm
Not on medication that commonly causes bradycardia, opioid might cause bradycardia
Monitor on telemetry
Severe PAD.
Status post right BKA.
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
On aspirin and Xarelto prior to admission
Currently off Xarelto given hematuria and recent cystoscopy with biopsy. Plan is to resume Xarelto in 7 to 10 days tentatively on 02/28 if no recurrent hematuria
IDDM.
Recent hemoglobin A1c 8.9.
Preadmission regimen including Xigduo, Prandin, Lantus
Hold metformin given contrast exposure with CT urogram on 02/05
Continue Lantus
Continue Prandin
Continue basal bolus protocol with serial Accu-Cheks
Acute on chronic anemia multifactorial due to postoperative blood loss as well as ongoing micro�gross hematuria
Iron stores with very mild iron deficiency also evidence for anemia of chronic disease.
Status post transfusion total of 2 units of packed red blood cells over this hospitalization with appropriate response.
Rectal heme-negative
Noted transient and isolated ALT elevation.
Imaging with no evidence of hepatic abnormalities.
Full code.
Anticipated Discharge: Within 24 hours
Subjective/Interval History
-
Date of Service: February 17, 2025
Objective Data
-
Vital Signs:
Vital Signs
Temp Pulse Resp BP Pulse Ox
98.4 F 63 18 121/48 99
02/17/25 11:30 02/17/25 11:30 02/17/25 11:30 02/17/25 11:30 02/17/25 11:30
I&O
02/16/25 02/17/25 02/18/25
06:59 06:59 06:59
Intake Total 1919 896 / 896
Output Total 1550 / 1552014 300 / 300
Balance 370 / 370 -1119 / -1119 -300 / -300
Physical Exam
-
General: Well Developed and No Apparent Distress
HEENT: Normocephalic, Atraumatic and Moist Mucous Membranes
Respiratory: Clear to Auscultation
Cardiac: Regular Rhythm and S1/S2; Negative Murmur, Rub or Gallop
GI: Soft, Nontender, Nondistended and Normal Bowel Sounds; Negative Organomegaly
Rectal: Deferred by Provider
Musculoskeletal: No Clubbing, No Cyanosis, No Edema and Other (right BKA)
Skin: Negative Rash
Neuro: Nonfocal/Grossly Intact
[2025-02-17] MEDS: CUBICIN 16 MG IV (16:34)
[2025-02-17 17:13] LABS: Glucose - Point of Care 238 mg/dl (70-99)
[2025-02-17] MEDS: NOVOLOG FLEXPEN-MODERATE RESISTANCE 3 UNITS SC (17:27)
[2025-02-17 19:20] VITALS: BP 117/49
[2025-02-17] MEDS: MELATONIN 3 MG PO (20:35)
[2025-02-17] MEDS: SENOKOT 17.2 MG PO (20:35)
[2025-02-17] MEDS: COLACE 100 MG PO (20:35)
[2025-02-17 21:36] LABS: Glucose - Point of Care 234 mg/dl (70-99)
[2025-02-17] MEDS: ULTRAM 25 MG PO (22:37)
[2025-02-17 23:12] VITALS: BP 126/65
[2025-02-18] VITALS (7 sets, daily range): BP systolic 122–134; BP diastolic 51–86
[2025-02-18 07:58] LABS: Glucose - Point of Care 127 mg/dl (70-99)
[2025-02-18] MEDS: NOVOLOG FLEXPEN-MODERATE RESISTANCE SC ×2 (08:08→17:23)
[2025-02-18] MEDS: FIRVANQ 125 MG PO (10:10)
[2025-02-18] MEDS: MIRALAX 17 GRAMS PO (10:14)
[2025-02-18] MEDS: LANTUS 0.15 UNITS SC (10:16)
[2025-02-18] MEDS: SENOKOT 17.2 MG PO ×2 (10:17→22:53)
[2025-02-18] MEDS: VISBIOME 2 CAP PO (10:17)
[2025-02-18] MEDS: SANTYL OINTMENT 1 APPLIC TOPICAL (10:18)
[2025-02-18] MEDS: FLORASTOR 500 MG PO (10:19)
[2025-02-18] MEDS: PRANDIN 1 MG PO ×3 (10:20→16:36)
[2025-02-18] MEDS: COLACE 100 MG PO ×2 (10:20→22:53)
[2025-02-18] MEDS: FLOMAX 0.4 MG PO (10:20)
[2025-02-18] MEDS: VITAMIN D3 (cholecalciferol) 25 MCG PO (10:21)
[2025-02-18] MEDS: GLUCOPHAGE 500 MG PO ×2 (10:22→16:36)
[2025-02-18] MEDS: LOW STRENGTH ASPIRIN 81 MG PO (10:22)
[2025-02-18] MEDS: FARXIGA 10 MG PO (10:22)
--- NOTE | 2025-02-18 10:35 | W.PN.HOSP.TC ---
Today's Communication/Plan
-
await placement
monitor urine
cont to hold xarelto for severe hematuria for now -recurrent.
Cont IV daptomycin
Assessment / Plan
Assessment / Plan
Impression:
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
MRSA bacteremia secondary to infected lower extremity wound.
Sepsis secondary to above present on admission
Bladder mass with gross hematuria and anticoagulation with factor Xa inhibitor
Severe PAD
Acute on chronic anemia with microcytosis, multifactorial due to acute blood loss/postoperative
Acute hypoxic respiratory insufficiency postoperatively secondary to lung toxicity now resolved.
Hyperkalemia improved.
Sacral pressure ulcer, unstageable
Other conditions:
Diabetes type 2 with neuropathy.
Chronic microcytic anemia.
Prior history of C. difficile infection
BPH.
Mild cognitive dysfunction
History of subdural hematoma
Plan:
Gross hematuria developed on 02/04. Previously with microhematuria while on Xarelto
CT urography 02/05 findings consistent with bladder mass and what looks like distant metastatic disease including necrotic lymph nodes and bony lytic metastasis.
So far no evidence of clot retention.
Normal renal function.
Status post cystoscopy on 02/11 with no evidence of bladder malignancy. Additional cytology pending.
Frey catheter removed on 02/15 with no evidence for recurrent retention
Pathology is benign
Bone scan without confirmation of lytic lesions. SPEP negative ruling out multiple myeloma. Necrotic lymph node could be attributed to recent right lower extremity infection. Will need outpatient reimaging.
No additional oncologic workup recommended at this point
Recurrent hematuria on 02/18 while back on Xarelto
Monitor for retention
Hold Xarelto for additional 7 to 10 days and resume it as outpatient if no recurrent hematuria
Nonhealing right lower extremity ulcer and this
Sepsis present on admission secondary to above present on admission now resolved.
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
Blood cultures cleared on 01/28
Echocardiogram with preserved LVEF no clear regurgitation, although with thickening mitral leaflets.
Noted elevated inflammatory markers.
Antibiotics consolidated to daptomycin through 03/08/2025 to complete total of 6 weeks of therapy. Monitor CK while on
On oral vancomycin for prophylaxis (prior history of C. difficile)
Continue probiotics
Bradycardia
ECG was normal sinus rhythm
Not on medication that commonly causes bradycardia, opioid might cause bradycardia
Monitor on telemetry
Severe PAD.
Status post right BKA.
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
On aspirin and Xarelto prior to admission
Currently off Xarelto given hematuria and recent cystoscopy with biopsy. Plan is to resume Xarelto in 7 to 10 days tentatively on 02/28 if no recurrent hematuria
IDDM.
Recent hemoglobin A1c 8.9.
Preadmission regimen including Xigduo, Prandin, Lantus
Continue Lantus
Continue Prandin
Continue basal bolus protocol with serial Accu-Cheks
Acute on chronic anemia multifactorial due to postoperative blood loss as well as ongoing micro�gross hematuria
Iron stores with very mild iron deficiency also evidence for anemia of chronic disease.
Status post transfusion total of 2 units of packed red blood cells over this hospitalization with appropriate response.
Rectal heme-negative
Noted transient and isolated ALT elevation.
Imaging with no evidence of hepatic abnormalities.
Full code.
Anticipated Discharge: Today
Subjective/Interval History
-
Date of Service: February 18, 2025
tolerating diet
intermittent phantom pain per patient
states hematuria is almost dissipated
Objective Data
-
Vital Signs:
Vital Signs
Temp Pulse Resp BP Pulse Ox
97.5 F 69 18 134/66 97
02/18/25 07:50 02/18/25 07:50 02/18/25 07:50 02/18/25 07:50 02/18/25 07:50
I&O
02/17/25 02/18/25 02/19/25
06:59 06:59 06:59
Intake Total 896 / 896 480 / 480 240 / 240
Output Total 2014 2600 / 2600 300 / 300
Balance -1119 / -1119 -2120 / -2120 -60 / -60
Physical Exam
-
General: Well Developed, No Apparent Distress and Conversant
HEENT: Normocephalic, Atraumatic and Moist Mucous Membranes
Respiratory: Clear to Auscultation
Cardiac: Regular Rhythm and S1/S2; Negative Murmur, Rub or Gallop
GI: Soft, Nontender, Nondistended and Normal Bowel Sounds; Negative Organomegaly
Rectal: Deferred by Provider
Musculoskeletal: No Clubbing, No Cyanosis, No Edema and Other (right BKA)
Skin: Negative Rash
Neuro: Awake and Nonfocal/Grossly Intact
Psych: Calm
[2025-02-18 11:37] LABS: Glucose - Point of Care 157 mg/dl (70-99)
--- NOTE | 2025-02-18 12:02 | CM ---
Reviewed the chart notes and spoke with the patient at the bedside. IMM reviewed. Updated clinical sent to [facility] via [facility]. CM continues to be available to patient/family and is monitoring medical plan for needs at discharge.
Plan: Discharge to [facility] once auth obtained and bed available.
[2025-02-18] MEDS: NOVOLOG FLEXPEN-MODERATE RESISTANCE 1 UNITS SC (12:04)
[2025-02-18] MEDS: CUBICIN 16 MG IV (16:36)
[2025-02-18 17:07] LABS: Glucose - Point of Care 83 mg/dl (70-99)
[2025-02-18 21:35] LABS: Glucose - Point of Care 290 mg/dl (70-99)
[2025-02-18] MEDS: MELATONIN 3 MG PO (22:53)
[2025-02-19 03:04] VITALS: BP 122/60
[2025-02-19 07:35] VITALS: BP 119/56
[2025-02-19 08:11] LABS: Glucose - Point of Care 244 mg/dl (70-99)
[2025-02-19] MEDS: PRANDIN 1 MG PO ×2 (09:38→12:28)
[2025-02-19] MEDS: FARXIGA 10 MG PO (09:38)
[2025-02-19] MEDS: SENOKOT 17.2 MG PO (09:38)
[2025-02-19] MEDS: FLOMAX 0.4 MG PO (09:38)
[2025-02-19] MEDS: VISBIOME 2 CAP PO (09:39)
[2025-02-19] MEDS: COLACE 100 MG PO (09:39)
[2025-02-19] MEDS: VITAMIN D3 (cholecalciferol) 25 MCG PO (09:39)
[2025-02-19] MEDS: FLORASTOR 500 MG PO (09:39)
[2025-02-19] MEDS: GLUCOPHAGE 500 MG PO (09:39)
[2025-02-19] MEDS: LOW STRENGTH ASPIRIN 81 MG PO (09:39)
[2025-02-19] MEDS: LANTUS 0.15 UNITS SC (09:40)
[2025-02-19] MEDS: FIRVANQ 125 MG PO (09:40)
[2025-02-19] MEDS: MIRALAX 17 GRAMS PO (09:41)
[2025-02-19] MEDS: NOVOLOG FLEXPEN-MODERATE RESISTANCE 3 UNITS SC (09:41)
[2025-02-19] MEDS: SANTYL OINTMENT 1 APPLIC TOPICAL (09:42)
--- NOTE | 2025-02-19 10:37 | CM ---
Addendum entered by Arturo Butler 02/19/25 12:22:
[facility]
Accepting physician: Pearl Grande
CM initiated an auth for acute rehab level of care with [facility], spoke to account manager sales representative Leigh and based on pt's clinical provided pt is approved for acute level of rehab at [facility] from today 02/19/25 till 02/23/25 with LCD and NRD
02/23/25. Auth is: [id number]. For additional days verbal request [phone].
Auth information given to [facility] director Kita.
to arrange transportation BLS. PMNC completed and left with . Ambulance auth to Acute care ambulance: [id number].
[facility] nursing report: [phone]
Discharge instructions fax: [phone].
D/C plan: [facility]
Original Note:
CM following re: discharge planning.
Reviewed pt's chart, met with pt.
According to pt is medically stable to be discharged today.
Pt is aware, requested [facility].
CM faxed updated pt's clinical to [facility], spoke to director geophysical laboratory Kita [phone] and she confirmed they do have a bed available, pt will be accepted for admission when an auth is obtained. Kita to text [facility]
acute rehab NPI and accepting MD NPI and CM will initiate an auth from [facility].
[facility]. Will initiate an auth shortly.
CM will follow to assist pt with discharge to [facility].
--- NOTE | 2025-02-19 11:37 | W.PN.HOSP.TC ---
Today's Communication/Plan
-
adjust insulin
xarelto held
await placement
Assessment / Plan
Assessment / Plan
Impression:
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
MRSA bacteremia secondary to infected lower extremity wound.
Sepsis secondary to above present on admission
Bladder mass with gross hematuria and anticoagulation with factor Xa inhibitor
Severe PAD
Acute on chronic anemia with microcytosis, multifactorial due to acute blood loss/postoperative
Acute hypoxic respiratory insufficiency postoperatively secondary to lung toxicity now resolved.
Hyperkalemia improved.
Sacral pressure ulcer, unstageable
Other conditions:
Diabetes type 2 with neuropathy.
Chronic microcytic anemia.
Prior history of C. difficile infection
BPH.
Mild cognitive dysfunction
History of subdural hematoma
Plan:
Gross hematuria developed on 02/04. Previously with microhematuria while on Xarelto
CT urography 02/05 findings consistent with bladder mass and what looks like distant metastatic disease including necrotic lymph nodes and bony lytic metastasis.
So far no evidence of clot retention.
Normal renal function.
Status post cystoscopy on 02/11 with no evidence of bladder malignancy. Additional cytology Mixed acute and lymphohistiocytic chronic inflammatory exudate with inflammatory foreign body type giant cell
Frey catheter removed on 02/15 with no evidence for recurrent retention
Pathology is benign
Bone scan without confirmation of lytic lesions. SPEP negative ruling out multiple myeloma. Necrotic lymph node could be attributed to recent right lower extremity infection. Will need outpatient reimaging.
No additional oncologic workup recommended at this point
Recurrent hematuria on 02/18 while back on Xarelto
Monitor for retention
Hold Xarelto for additional 7 to 10 days and resume it as outpatient if no recurrent hematuria
Nonhealing right lower extremity ulcer and this
Sepsis present on admission secondary to above present on admission now resolved.
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
Blood cultures cleared on 01/28
Echocardiogram with preserved LVEF no clear regurgitation, although with thickening mitral leaflets.
Noted elevated inflammatory markers.
Antibiotics consolidated to daptomycin through 03/08/2025 to complete total of 6 weeks of therapy. Monitor CK while on
On oral vancomycin for prophylaxis (prior history of C. difficile)
Continue probiotics
Bradycardia
ECG was normal sinus rhythm
Not on medication that commonly causes bradycardia, opioid might cause bradycardia
Monitor on telemetry
Severe PAD.
Status post right BKA.
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
On aspirin and Xarelto prior to admission
Currently off Xarelto given hematuria and recent cystoscopy with biopsy. Plan is to resume Xarelto in 7 to 10 days tentatively on 02/28 if no recurrent hematuria
IDDM.
Recent hemoglobin A1c 8.9.
Preadmission regimen including Xigduo, Prandin, Lantus
Continue Lantus
Continue Prandin
Continue basal bolus protocol with serial Accu-Cheks
POC elevated-will add lantus 8u qhs
Acute on chronic anemia multifactorial due to postoperative blood loss as well as ongoing micro�gross hematuria
Iron stores with very mild iron deficiency also evidence for anemia of chronic disease.
Status post transfusion total of 2 units of packed red blood cells over this hospitalization with appropriate response.
Rectal heme-negative
Noted transient and isolated ALT elevation.
Imaging with no evidence of hepatic abnormalities.
Full code.
PT/OT-SNF or acute rehab. CM aware.
Anticipated Discharge: Today
Subjective/Interval History
-
Date of Service: February 19, 2025
States of intermittent phantom pain
Objective Data
-
Vital Signs:
Vital Signs
Temp Pulse Resp BP Pulse Ox
98.0 F 64 16 119/56 98
02/19/25 07:35 02/19/25 07:35 02/19/25 07:35 02/19/25 07:35 02/19/25 07:35
I&O
02/18/25 02/19/25 02/20/25
06:59 06:59 06:59
Intake Total 480 / 480 1020 / 1020
Output Total 2600 / 2600 1775 / 1775
Balance -2120 / -2120 -755 / -755
Physical Exam
-
General: Well Developed, No Apparent Distress and Conversant
HEENT: Normocephalic, Atraumatic and Moist Mucous Membranes
Respiratory: Clear to Auscultation
Cardiac: Regular Rhythm and S1/S2; Negative Murmur, Rub or Gallop
GI: Soft, Nontender, Nondistended and Normal Bowel Sounds; Negative Organomegaly
Rectal: Deferred by Provider
Musculoskeletal: No Clubbing, No Cyanosis, No Edema and Other (right BKA)
Skin: Negative Rash
Neuro: Awake and Nonfocal/Grossly Intact
Psych: Calm
[2025-02-19 12:05] LABS: Glucose - Point of Care 128 mg/dl (70-99)
[2025-02-19] MEDS: NOVOLOG FLEXPEN-MODERATE RESISTANCE SC (12:25)
--- NOTE | 2025-02-19 12:52 | W.DCSUMMARY ---
Discharge Summary
Discharge Data
Date of Admission: 01/23/25
Date of Discharge: 02/19/25
-
Pending Results: No
Hospital Course
80-year-old male past medical history of diabetes mellitus type 2, anemia, history of C. difficile, BPH, alcoholic dysfunction, history of subdural hematoma, severe peripheral arterial disease, sacral pressure ulcer unstageable, chronic right lower
extremity ulcer, presenting with complaint of generalized weakness and increasing right foot pain. Patient outpatient blood work with severe leukocytosis. Patient was found with nonhealing right diabetic ulcer with osteomyelitis. Patient was
found to have sepsis secondary to MRSA bacteremia. Patient was eval by vascular surgery and patient underwent right below the knee amputation by Dr. Frey. Patient was also eval by infectious disease and IV meropenem was transitioned to daptomycin
through 03/08/2025. Patient was also started on p.o. vancomycin for C. difficile prophylaxis. Patient also has with hematuria and there was concern for bladder malignancy. Patient was evaluated by urology patient underwent ureteral dilatation,
TURBT, fulguration of urothelium. No evidence of bladder tumor was found. Significant cystitis was noted. Extensive cystoscopy demonstrating NO evidence of abnormal urothelial lesions or bladder tumors indicative of bladder cancer. Patient was
also found multiple lytic bone lesions in the lumbar spine pelvis and femoral region. Also with necrotic pelvic node with patient when to follow-up outpatient which could be due to recent right PAD. Patient underwent bone scan. Bone scan without
confirmation of lytic lesions. PSA and SPEP/OSWALD/SFLC myeloma panel negative (except for very faint possible M spike which is nonspecific). Per oncology, at this point, no clear-cut evidence of malignancy (eg, bladder cancer, multiple myeloma,
prostate cancer). Necrotic lymph node could be attributed to recent right lower extremity infection. Will need outpatient reimaging. Patient had a repeat episode of hematuria which was deemed likely secondary to Xarelto. The plan was to hold
Xarelto and restart on 02/28/2025 if no hematuria which has started to dissipate during hospitalization once Xarelto was held. Patient diabetic regimen was adjusted with decrease in a.m. Lantus and additional Lantus was added at bedtime. Patient
also with blood loss and received total of 2 units of PRBC during hospitalization. Heme test was negative. Patient was eval by physical and Occupational Therapy and physiatry. Patient be discharged to acute rehab with outpatient follow-up with
primary doctor and vascular surgery and urology.
Portions of this chart may have been created with voice recognition software.� Occasional wrong word or �sound alike� substitutions may have occurred due to the inherent limitations of voice recognition software.
Discharge Plan
-
Patient Disposition: Acute Rehab Facility
Discharge Diagnosis/Procedures: Diabetic foot infection with nonhealing right ulcer/osteomyelitis and sepsis secondary to methicillin resistant Staphylococcus aureus bacteremia with below-knee amputation, atherosclerotic cardiovascular
disease/peripheral arterial disease, hyperkalemia, type 2 diabetes mellitus with neuropathy, acute on chronic microcytic anemia, history of intracranial/subdural hematoma with cognitive dysfunction, history of C. difficile, benign prostatic
hyperplasia with newly found bladder mass, vitamin D deficiency
Condition: Fair
Diet: As tolerated
Activity: As tolerated and No strenuous activity
Driving Restrictions: No driving
Bathing Restrictions: OK to Shower
Blood Work: CMP and CK weekly while on daptomycin via primary doctor.
Others Tests: Consider repeat imaging of CT pelvis in 2 to 3 months to evaluate for resolution of adenopathy with consideration of lymph node biopsy if necrotic adenopathy does not resolve.
Wound Care: You may leave your derik open to air, can wrap stump site with gentle compression utilizing Johny wrap daily and remove at night.
Activity Restrictions/Additional Instructions:
Wound Care Instructions Sacral Wound- Clean with Vashe moistened gauze for 5 minutes. Apply lilia thick layer of Santyl to necrotic areas and cover with adaptic and silicone border foam. Change daily and PRN if soiled.
Left Heel- No-sting barrier and adhesive foam. Change Q3 days.
Air mattress, continued off-loading of sacrum
Keep heels off-loaded with pillow or air cushion under calf
Use Z foam cushion for continued off-loading
Follow up at wound care center call for an appointment.
It is very important that you follow-up with Dr. Cornelius for cystoscopy to evaluate the bladder mass.
Plan is to resume Xarelto in 7 to 10 days tentatively on 02/28 if no recurrent hematuria.
Antibiotics consolidated to daptomycin through 03/08/2025 to complete total of 6 weeks of therapy.
Stand Alone Forms: DC Instr - Vascular OR
Referrals:
Leonardo Cornelius MD [Active] - (call to schedule 'Cystoscopy' during February)
Ángel Jeffries MD [Active] - (Please call to arrange follow-up after discharge)
Dallin Valdez MD [Family Provider] - in less than 1 week
Jackie Sanchez CRNP [Specified Professional Personl] - 03/24/25 2:30 pm
Prescriptions:
New
vancomycin 50 mg/mL Recon Soln
125 mg PO BID 35 Days Qty: 175 0RF
Rx Instructions:
cont through 03/08/25 (while on IV daptomycin)
DAPTOmycin [Cubicin] 800 MG
Syringe [Syringe-Pump] 0 ML
As Directed mls/hr IV Q24H
Reason for use: Infection
cont through 03/08/25
Ordered By: Sara Kapoor MD
Last Taken: 02/18/25 16:36 16 mls
tamsulosin 0.4 mg Capsule
0.4 mg PO DAILY Qty: 30 0RF
acetaminophen 325 mg Tablet
650 mg PO Q4HPRN PRN (Reason: Mild Pain / Temp > 101) Qty: 0 0RF
polyethylene glycol 3350 17 gram Powder In Packet
17 g PO DAILY Qty: 0 0RF
melatonin 3 mg Tablet
3 mg PO HS Qty: 0 0RF
docusate sodium 100 mg Capsule
100 mg PO BID Qty: 0 0RF
aspirin 81 mg Tablet,Chewable
81 mg PO DAILY Qty: 0 0RF
cholecalciferol (vitamin D3) 25 mcg (1,000 unit) Tablet
25 mcg PO DAILY Qty: 0 0RF
oxycodone 5 mg Tablet
5 mg PO Q4HPRN PRN (Reason: moderate pain) Qty: 10 0RF
oxycodone 10 mg Tablet
10 mg PO Q4HPRN PRN (Reason: severe pain) Qty: 10 0RF
metformin 500 mg Tablet
500 mg PO BID@0800,1700 Qty: 60 0RF
Insulin Glargine Lantus [Lantus] 8 UNITS
Subcutaneous Insulin Syringe [Syringe-Insulin] 0 UNIT
As Directed mls/hr SC HS
Ordered By: Eduin Jaffe MD
Last Taken: Unknown
Continued
repaglinide 1 MG tablet
1 mg PO MEALS
coenzyme Q10 [CoQ-10] 100 mg Capsule
100 mg PO DAILY Qty: 0
PreserVision AREDS-2 250-90-40-1 mg Capsule
1 tab PO BID
dapaglifloz propaned-metformin [Xigduo XR] 5-1,000 mg Tablet, Ir - Er, Biphasic 24hr
1 tab PO BID
therapeutic multivitamin Tablet
1 tab PO DAILY
Saccharomyces boulardii [Florastor] 250 mg Capsule
500 mg PO DAILY
Visbiome 112.5 billion cell Capsule
1 cap PO DAILY
vitamin K2 (MK-4) 100 mcg Tablet
100 mcg PO DAILY
Changed
insulin glargine U-300 conc [Toujeo SoloStar U-300 Insulin] 300 unit/mL (1.5 mL) Insulin Pen
15 unit SC DAILY Qty: 0 0RF
Held
rosuvastatin 20 MG tablet
20 mg PO HS
Hold Instructions: do not take while on daptomycin
rivaroxaban [Xarelto] 2.5 mg Tablet
2.5 mg PO BID
Hold Instructions: Resume on 02/28/25. Restart if hematuria resolved
Discontinued
rivaroxaban [Xarelto] 2.5 mg Tablet
2.5 mg PO BID Qty: 0 0RF
doxycycline hyclate 100 mg Capsule
100 mg PO BID
Discharge Orders:
Discharge Patient (As Directed); Ordered 02/19/25
Ordered By: Eduin Jaffe
Discharge Date and Time
Print Language: [place]LAND[place]
--- NOTE | 2025-02-19 13:26 | PTCARENOTE ---
Confirmed with VAT RN Ambrose Zamora patient will be discharged with PICC for long-term antibiotics.
[2025-02-19 14:04] VITALS: BP 118/54
[2025-02-19] MEDS: CUBICIN 16 MG IV (15:22)
== END 2025-02-19 16:13 | DRG 854 ==
LOC: 2 SOUTH 01:50
PROVIDERS: Hospitalist; Internal Medicine; Nurse Practitioner; Nurse Practitioner Family; Registered Nurse; Student in an Organized Health Care Education/Training Program; Surgery; ADMITTING PHYSICIAN Hospitalist; ATTENDING PHYSICIAN Hospitalist; CONSULT PHYSICIAN Internal Medicine Cardiovascular Disease; CONSULT PHYSICIAN Internal Medicine Infectious Disease; CONSULT PHYSICIAN Physical Medicine & Rehabilitation; CONSULT PHYSICIAN Podiatrist Foot & Ankle Surgery; CONSULT PHYSICIAN Psychiatry & Neurology Psychiatry; CONSULT PHYSICIAN Specialist; EMERGENCY PHYSICIAN Emergency Medicine; FAMILY PHYSICIAN Family Medicine; OTHER PHYSICIAN Internal Medicine Hematology & Oncology; OTHER PHYSICIAN Surgery Vascular Surgery
PROC: 30233N1 Transfusion of Nonautologous Red Blood Cells into Peripheral Vein, Percutaneous Approach (ICD-10-PCS; 2025-01-24)
PROC: 0Y6H0Z2 Detachment at Right Lower Leg, Mid, Open Approach (ICD-10-PCS; 2025-01-29)
PROC: 02HV33Z Insertion of Infusion Device into Superior Vena Cava, Percutaneous Approach (ICD-10-PCS; 2025-02-03)
PROC: 0TBB8ZZ Excision of Bladder, Via Natural or Artificial Opening Endoscopic (ICD-10-PCS; 2025-02-11)
DX: A41.02 Sepsis due to Methicillin resistant Staphylococcus aureus (principal); D62 Acute posthemorrhagic anemia; J98.11 Atelectasis; L97.414 Non-pressure chronic ulcer of right heel and midfoot with necrosis of bone; M86.671 Other chronic osteomyelitis, right ankle and foot; I25.10 Atherosclerotic heart disease of native coronary artery without angina pectoris; E11.51 Type 2 diabetes mellitus with diabetic peripheral angiopathy without gangrene; I10 Essential (primary) hypertension; E11.621 Type 2 diabetes mellitus with foot ulcer; E11.69 Type 2 diabetes mellitus with other specified complication; N39.490 Overflow incontinence; N40.1 Benign prostatic hyperplasia with lower urinary tract symptoms; D50.9 Iron deficiency anemia, unspecified; E11.40 Type 2 diabetes mellitus with diabetic neuropathy, unspecified; I48.91 Unspecified atrial fibrillation; N30.91 Cystitis, unspecified with hematuria; L89.150 Pressure ulcer of sacral region, unstageable; N32.9 Bladder disorder, unspecified; E87.5 Hyperkalemia; E11.65 Type 2 diabetes mellitus with hyperglycemia; M89.9 Disorder of bone, unspecified; F43.20 Adjustment disorder, unspecified; E55.9 Vitamin D deficiency, unspecified; E78.00 Pure hypercholesterolemia, unspecified; D63.8 Anemia in other chronic diseases classified elsewhere; G31.84 Mild cognitive impairment of uncertain or unknown etiology; S06.5XAS Traumatic subdural hemorrhage with loss of consciousness status unknown, sequela; V49.9XXS Car occupant (driver) (passenger) injured in unspecified traffic accident, sequela; Z79.01 Long term (current) use of anticoagulants; Z79.4 Long term (current) use of insulin; Z79.899 Other long term (current) drug therapy; Z95.820 Peripheral vascular angioplasty status with implants and grafts
CPT/HCPCS: 88307; 88311; 27880; 71045; 71046; 73552; 73620; 74178; 76770; 78306; 80048; 80053; 80202; 81003; 81015; 82247; 82248; 82306; 82550; 82607; 82728; 82784; 82962; 83036; 83521; 83540; 83550; 83605; 83735; 84075; 84132; 84153; 84155; 84165; 84450; 84460; 84484; 85014; 85018; 85025; 85027; 85652; 86140; 86334; 86850; 86900; 86901; 86920; 87040; 87086; 87150; 87186; 87205; 93005; 93306; 93922; 93925; 96361; 96365; 96366; 96367; 96375; 97110; 97162; 97164; 97530; 97535; 97542; 99285; A9503; J0878; J2185; J2997; P9016; Q9967

== ENCOUNTER → 2025-09-20 13:51 | Outpatient (REF) | payer BC, SELFPAY | LOC: RAD 13:51 | PROVIDERS: ATTENDING PHYSICIAN Registered Nurse | DX: I73.9 Peripheral vascular disease, unspecified (principal) | CPT/HCPCS: 93922 ==